=== PATIENT | female | born 1965 | race Caucasian/White ===

== ENCOUNTER 2016-09-16 12:11 | Emergency (ER) | payer MEDICARE, MEDICAID ==
[~2016-09-16 12:11] MED LIST: ALBUAER3 INH; BENZ2TAB PO; BUPR100T4 PO; CHOL20005 PO; DEPA500T3 PO; DIVA250T3 PO; DORZ2SOL7 EACH EYE; FLUP2.5T PO; FLUT1INH INH; FURO20TA PO; OLAN10TA PO; OXCA150T PO; RISP50P IM; SODI1TAB PO
--- NOTE | 2016-09-16 12:24 | PD ---
HPI Chief Complaint: ba Time Seen by Provider: 12:24 Travel History International Travel<30 days: No Contact w/Intl Traveler<30days: No Traveled to known affect area: No History of Present Illness HPI 51-year-old female with history of schizophrenia presents to the emergency department from her current place of residence under a [place] act for psychiatric evaluation. Per report, the patient has been decompensating and becoming more aggressive. She has tended to walk into traffic several times. Patient tells me she is fine. She seems to be having many flights of ideas but can be redirected. Her speech is very garbled. She tells me that she is not the one with the problem. PFSH Past Medical History Asthma: No Autoimmune Disease: No Anxiety: Yes Depression: No COPD: Yes Cerebrovascular Accident: No Diminished Hearing: No Gastrointestinal Disorders: No Genitourinary: No Immune Disorder: No Implanted Vascular Access Dvce: No Musculoskeletal: No Neurologic: Yes (ENCEPHALOPATHY) Psychiatric: Yes (pt has been hospitalized for psychiatric problems) Reproductive: No Respiratory: Yes Immunizations Current: No Migraines: Yes Sleep Apnea: No Past Surgical History AICD: No Genitourinary Surgery: No Social History Alcohol Use: No Tobacco Use: Yes (1 PACK DAILY ) Substance Use: No Allergies-Medications (Allergen,Severity, Reaction): Coded Allergies: Haldol (Verified Allergy, Unknown, 07/19/16) Reported Meds & Prescriptions Reported Meds & Active Scripts Active Depakote ER (Divalproex Sodium) 500 Mg Mila 500 Mg PO BID Reported Risperdal Consta Inj (Risperidone) 50 Mg Inj 50 Mg IM Q14D Sodium Chloride 1 Gm Tab 1 Gm PO DAILY Fluphenazine (Fluphenazine HCl) 2.5 Mg Tab 1 Tab PO BID Breo Ellipta Inh (Fluticasone/Vilanterol) 100-25 Mcg/Act Inh 1 Puff INH DAILY Use daily at the same time. Oxcarbazepine 150 Mg Tab 450 Mg PO BID Divalproex ER (Divalproex Sodium) 250 Mg Mila 250 Mg PO DAILY Olanzapine 10 Mg Tab 10 Mg PO HS Furosemide 20 Mg Tab 20 Mg PO DAILY Cosopt Opth Drops (Dorzolamide-Timolol Opth Drops) 22.3-6.8 Mg/Ml Soln 1 Drop EACH EYE TID Benztropine (Benztropine Mesylate) 2 Mg Tab 2 Mg PO BID D3 Super Strength (Cholecalciferol) 2,000 Unit Cap 1,000 Units PO DAILY Bupropion HCl 100 Mg Tab 100 Mg PO DAILY Proair Hfa 8.5 GM Inh (Albuterol Sulfate) 90 Mcg/Act Aer 1 Puff INH Q6HR PRN 108 mcg/actuation Review of Systems Except as stated in HPI: all other systems reviewed are Neg Physical Exam Narrative GENERAL: Well-nourished, unkempt female patient, sitting in a chair, mumbling to those around her, drooling on her shirt, but in no acute distress SKIN: Warm and dry. HEAD: Normocephalic. Atraumatic EYES: No scleral icterus. No injection or drainage. NECK: Supple, trachea midline. No JVD or lymphadenopathy. CARDIOVASCULAR: Regular rate and rhythm without murmurs, gallops, or rubs. RESPIRATORY: Breath sounds equal bilaterally. No accessory muscle use. GASTROINTESTINAL: Abdomen soft, non-tender, nondistended. MUSCULOSKELETAL: No cyanosis, or edema. BACK: Nontender without obvious deformity. No CVA tenderness. Data Data Last Documented VS Vital Signs Date Time Temp Pulse Resp B/P Pulse Ox O2 Delivery O2 Flow Rate FiO2 09/16/16 22:00 68 18 101/59 100 Room Air 09/16/16 15:59 97.6 Orders Complete Blood Count With Diff (09/16/16 12:17) Basic Metabolic Panel (Bmp) (09/16/16 12:17) Urinalysis - C+S If Indicated (09/16/16 12:17) Drug Screen, Random Urine (09/16/16 12:17) Alcohol (Ethanol) (09/16/16 12:17) Psych Screen (09/16/16 12:17) Ct Brain W/O Iv Contrast(Rout) (09/16/16 ) Diet Regular Basic (09/16/16 Dinner) Labs Laboratory Tests Test 09/16/16 09/16/16 13:55 15:15 White Blood Count 5.9 TH/MM3 Red Blood Count 3.63 MIL/MM3 Hemoglobin 12.1 GM/DL Hematocrit 35.1 % Mean Corpuscular Volume 96.7 FL Mean Corpuscular Hemoglobin 33.2 PG Mean Corpuscular Hemoglobin 34.3 % Concent Red Cell Distribution Width 13.4 % Platelet Count 223 TH/MM3 Mean Platelet Volume 9.4 FL Neutrophils (%) (Auto) 73.7 % Lymphocytes (%) (Auto) 16.4 % Monocytes (%) (Auto) 8.8 % Eosinophils (%) (Auto) 0.6 % Basophils (%) (Auto) 0.5 % Neutrophils # (Auto) 4.3 TH/MM3 Lymphocytes # (Auto) 1.0 TH/MM3 Monocytes # (Auto) 0.5 TH/MM3 Eosinophils # (Auto) 0.0 TH/MM3 Basophils # (Auto) 0.0 TH/MM3 CBC Comment DIFF FINAL Differential Comment Sodium Level 132 MEQ/L Potassium Level 3.7 MEQ/L Chloride Level 95 MEQ/L Carbon Dioxide Level 32.7 MEQ/L Anion Gap 4 MEQ/L Blood Urea Nitrogen 7 MG/DL Creatinine 0.74 MG/DL Estimat Glomerular Filtration 82 ML/MIN Rate Random Glucose 101 MG/DL Calcium Level 8.6 MG/DL Ethyl Alcohol Level LESS THAN 3 MG/DL Urine Color LIGHT-YELLOW Urine Turbidity CLEAR Urine pH 6.5 Urine Specific [place] 1.006 Urine Protein NEG mg/dL Urine Glucose (UA) NEG mg/dL Urine Ketones NEG mg/dL Urine Occult Blood NEG Urine Nitrite NEG Urine Bilirubin NEG Urine Urobilinogen LESS THAN 2.0 MG/DL Urine Leukocyte Esterase NEG Urine RBC LESS THAN 1 /hpf Urine WBC LESS THAN 1 /hpf Microscopic Urinalysis Comment CULT NOT INDICATED Urine Opiates Screen NEG Urine Barbiturates Screen NEG Urine Amphetamines Screen NEG Urine Benzodiazepines Screen NEG Urine Cocaine Screen NEG Urine Cannabinoids Screen NEG MDM Medical Decision Making Medical Screen Exam Complete: Yes Emergency Medical Condition: Yes Medical Record Reviewed: Yes Differential Diagnosis Acute psychosis versus schizophrenia versus major disorder versus personality disorder versus electrode abnormality versus intracranial etiology Narrative Course 51-year-old female presents to emergency department for evaluation. Patient appears without distress. She is unable to answer my questions and with reports of decompensation and behavioral changes feel it is necessary to rule out intracranial etiology or other potential causes. CT imaging is without acute cranial abnormality. CBC and BMP are without acute concern. Toxicology is negative. Urine is unremarkable. Patient is medically cleared to undergo psychiatric screening for further evaluation and disposition. Mental health screening discussed with the patient. Psychiatric screen ordered. Diagnosis Primary Impression: Schizophrenia Qualified Code: F20.9 - Schizophrenia, unspecified type Additional Impression: Acute psychosis Condition: Stable Tierra Mercer Sep 16, 2016 12:24
--- NOTE | 2016-09-16 13:04 | RADRPT ---
EXAM DATE/TIME: 09/16/2016 12:57 [facility] COMPARISON: CT BRAIN W/O CONTRAST, July 19, 2016, 13:10. INDICATIONS : Altered mental status. RADIATION DOSE: 40.15 CTDIvol (mGy) MEDICAL HISTORY : Seizures. Encephalopathy. SURGICAL HISTORY : None. ENCOUNTER: Initial ACUITY: 1 day PAIN SCALE: 0/10 LOCATION: cranial TECHNIQUE: Multiple contiguous axial images were obtained of the head. Using automated exposure control and adjustment of the mA and/or kV according to patient size, radiation dose was kept as low as reasonably achievable to obtain optimal diagnostic quality images. FINDINGS: CEREBRUM: The ventricles are normal for age. No evidence of midline shift, mass lesion, hemorrha ge or acute infarction. No extra-axial fluid collections are seen. POSTERIOR FOSSA: The cerebellum and brainstem are intact. The 4th ventricle is midline. The cer ebellopontine angle is unremarkable. EXTRACRANIAL: The visualized portion of the orbits is intact. SKULL: The calvaria is intact. No evidence of skull fracture. CONCLUSION: No acute disease. Keanu Dejesus MD FACR on September 16, 2016 at 13:01 Board Certified Radiologist. This report was verified electronically.
[2016-09-16 13:30] VITALS: BP 154/79; PULSE 88; RESP 18; TEMP 98; O2SAT 96
[2016-09-16 14:16] LABS: AUTOMATED NEUTROPHIL # 4.3 TH/MM3 (1.8-7.7); BASOPHIL % 0.5 % (0.0-2.0); EOSINOPHIL % 0.6 % (0.0-4.0); HEMATOCRIT 35.1 % (35.0-46.0); HEMO FLAGS DIFF FINAL; LYMPH % 16.4 % (9.0-44.0); MEAN CELL VOLUME 96.7 FL (80.0-100.0); MEAN CORPUSCULAR HEMOGLOBIN 33.2 PG (27.0-34.0); MEAN CORPUSCULAR HGB CONC 34.3 % (32.0-36.0); MONO % 8.8 % (0.0-8.0); NEUT % 73.7 % (16.0-70.0); PLATELET COUNT 223 TH/MM3 (150-450); RED BLOOD COUNT 3.63 MIL/MM3 (4.00-5.30); RED CELL DISTRIBUTION WIDTH 13.4 % (11.6-17.2); WHITE BLOOD COUNT 5.9 TH/MM3 (4.0-11.0)
[2016-09-16 14:36] LABS: ANION GAP 4 MEQ/L (5-15); BICARBONATE 32.7 MEQ/L (21.0-32.0); BLOOD UREA NITROGEN 7 MG/DL (7-18); CHLORIDE 95 MEQ/L (98-107); GLOMERULAR FILTRATION RATE 82 ML/MIN (>89); POTASSIUM 3.7 MEQ/L (3.5-5.1); SODIUM (NA) 132 MEQ/L (136-145)
[2016-09-16 15:59] VITALS: BP 114/77; PULSE 91; RESP 18; TEMP 97.6; O2SAT 95
[2016-09-16 16:07] LABS: AMPHETAMINE, URINE NEG (NEG); BARBITURATES, URINE NEG (NEG); COCAINE, URINE NEG (NEG)
[2016-09-16 16:13] LABS: BLOOD, URINE NEG (NEG); COMMENT (UR) CULT NOT INDICATED; CULTURE IF INDICATED CULT NOT INDICATED; GLUCOSE,URINE NEG (NEG); KETONE, URINE NEG (NEG); NITRITE,URINE NEG (NEG); PH, URINE 6.5 (5.0-8.5); URINE COLOR LIGHT-YELLOW (YELLW/STRAW)
[2016-09-16 18:46] VITALS: BP 118/60; PULSE 79; RESP 18; O2SAT 98
[2016-09-16 22:00] VITALS: BP 101/59; PULSE 68; RESP 18; O2SAT 100
[2016-09-17 02:00] VITALS: BP 104/61; PULSE 76; RESP 17; O2SAT 96
[2016-09-17 06:41] VITALS: BP 105/79; PULSE 99; RESP 18; O2SAT 96
[2016-09-17 09:13] VITALS: BP 105/79
== END 2016-09-17 09:15 ==
LOC: NEDAMB 12:11 → NEPJ 09-17 09:15
DX: F20.9 Schizophrenia, unspecified (principal); F23 Brief psychotic disorder; J44.9 Chronic obstructive pulmonary disease, unspecified; F17.210 Nicotine dependence, cigarettes, uncomplicated
CPT/HCPCS: 70450; 80048; 80307; 80320; 81001; 85025

== ENCOUNTER 2016-10-14 15:44 | Inpatient (IN) | payer MEDICARE, MEDICAID ==
[~2016-10-14] VITALS: Ht 172.7 cm; Wt 55.9 kg
--- NOTE | 2016-10-14 16:40 | PD ---
HPI Chief Complaint: fall Time Seen by Provider: 16:39 Travel History International Travel<30 days: No Contact w/Intl Traveler<30days: No History of Present Illness HPI 51-year-old female with PMH of COPD, schizophrenia, hyponatremia presents to the ED for evaluation after multiple falls at her shelter today. On presentation the patient complains of aching pain all over and repeatedly asked for pain medications. She denies hitting her head or loss of consciousness. She endorses chronic falls. She is tangential and difficult to redirect. Review of the record reveals that her schizophrenia is advanced and she is A and O 2 at baseline. PFSH Past Medical History Asthma: No Autoimmune Disease: No Anxiety: Yes Depression: No COPD: Yes Cerebrovascular Accident: No Diminished Hearing: No Gastrointestinal Disorders: No Genitourinary: No Immune Disorder: No Implanted Vascular Access Dvce: No Musculoskeletal: No Neurologic: Yes (ENCEPHALOPATHY) Psychiatric: Yes (pt has been hospitalized for psychiatric problems) Reproductive: No Respiratory: Yes Immunizations Current: No Migraines: Yes Sleep Apnea: No Past Surgical History AICD: No Genitourinary Surgery: No Social History Alcohol Use: No Tobacco Use: Yes (1 PACK DAILY ) Substance Use: No Allergies-Medications (Allergen,Severity, Reaction): Coded Allergies: Haldol (Verified Allergy, Unknown, 07/19/16) Reported Meds & Prescriptions Reported Meds & Active Scripts Active Depakote ER (Divalproex Sodium) 500 Mg Mila 500 Mg PO BID Reported Risperdal Consta Inj (Risperidone) 50 Mg Inj 50 Mg IM Q14D Sodium Chloride 1 Gm Tab 1 Gm PO DAILY Fluphenazine (Fluphenazine HCl) 2.5 Mg Tab 1 Tab PO BID Breo Ellipta Inh (Fluticasone/Vilanterol) 100-25 Mcg/Act Inh 1 Puff INH DAILY Use daily at the same time. Oxcarbazepine 150 Mg Tab 450 Mg PO BID Divalproex ER (Divalproex Sodium) 250 Mg Mila 250 Mg PO DAILY Olanzapine 10 Mg Tab 10 Mg PO HS Furosemide 20 Mg Tab 20 Mg PO DAILY Cosopt Opth Drops (Dorzolamide-Timolol Opth Drops) 22.3-6.8 Mg/Ml Soln 1 Drop EACH EYE TID Benztropine (Benztropine Mesylate) 2 Mg Tab 2 Mg PO BID D3 Super Strength (Cholecalciferol) 2,000 Unit Cap 1,000 Units PO DAILY Bupropion HCl 100 Mg Tab 100 Mg PO DAILY Proair Hfa 8.5 GM Inh (Albuterol Sulfate) 90 Mcg/Act Aer 1 Puff INH Q6HR PRN 108 mcg/actuation Review of Systems ROS Limitations: Poor Historian (pt unable to provide detailed history) Physical Exam Narrative GENERAL: Well-nourished, well-developed thin, restless white female in no acute distress. SKIN: Warm and dry. HEAD: Normocephalic. EYES: No scleral icterus. No injection or drainage. Right pupil nonreactive. Reviewing the record reveals this is chronic. EOMI. NECK: Supple, trachea midline. No JVD or lymphadenopathy. No midline tenderness to palpation. CARDIOVASCULAR: Regular rate and rhythm without murmurs, gallops, or rubs. RESPIRATORY: Breath sounds clear and equal bilaterally. No accessory muscle use. GASTROINTESTINAL: Abdomen soft, non-tender, nondistended. Active bowel sounds. MUSCULOSKELETAL: No cyanosis, or edema. BACK: Nontender without obvious deformity. No CVA tenderness. Data Data Last Documented VS Vital Signs Date Time Temp Pulse Resp B/P Pulse Ox O2 Delivery O2 Flow Rate FiO2 10/14/16 19:50 95 Nasal Cannula 2 10/14/16 19:50 97 18 163/108 10/14/16 16:42 97.3 Orders Complete Blood Count With Diff (10/14/16 16:52) Comprehensive Metabolic Panel (10/14/16 16:52) Urinalysis - C+S If Indicated (10/14/16 16:52) Ct Brain W/O Iv Contrast(Rout) (10/14/16 16:52) Ct Cerv Spine W/O Contrast (10/14/16 16:52) Ecg Monitoring (10/14/16 16:52) Iv Access Insert/Monitor (10/14/16 16:52) Oximetry (10/14/16 16:52) Sodium Chloride 0.9% Flush (Ns Flush) (10/14/16 17:00) Sodium Chlor 0.9% 1000 Ml Inj (Ns 1000 M (10/14/16 18:00) Electrocardiogram (10/14/16 17:55) Sodium (Na) (10/14/16 19:41) ^ Fluid A Instructions (10/14/16 20:31) Admit Order (Ed Use Only) (10/14/16 20:31) Labs Laboratory Tests Test 10/14/16 17:16 White Blood Count 7.2 TH/MM3 Red Blood Count 4.04 MIL/MM3 Hemoglobin 13.5 GM/DL Hematocrit 37.8 % Mean Corpuscular Volume 93.5 FL Mean Corpuscular Hemoglobin 33.3 PG Mean Corpuscular Hemoglobin 35.6 % Concent Red Cell Distribution Width 13.2 % Platelet Count 228 TH/MM3 Mean Platelet Volume 9.8 FL Neutrophils (%) (Auto) 70.6 % Lymphocytes (%) (Auto) 20.3 % Monocytes (%) (Auto) 8.8 % Eosinophils (%) (Auto) 0.1 % Basophils (%) (Auto) 0.2 % Neutrophils # (Auto) 5.1 TH/MM3 Lymphocytes # (Auto) 1.5 TH/MM3 Monocytes # (Auto) 0.6 TH/MM3 Eosinophils # (Auto) 0.0 TH/MM3 Basophils # (Auto) 0.0 TH/MM3 CBC Comment DIFF FINAL Differential Comment Urine Color STRAW Urine Turbidity HAZY Urine pH 8.0 Urine Specific [place] 1.005 Urine Protein NEG mg/dL Urine Glucose (UA) NEG mg/dL Urine Ketones TRACE mg/dL Urine Occult Blood NEG Urine Nitrite NEG Urine Bilirubin NEG Urine Urobilinogen LESS THAN 2.0 MG/DL Urine Leukocyte Esterase NEG Urine RBC 2 /hpf Urine WBC 1 /hpf Urine Amorphous Sediment OCC Urine Mucus FEW /lpf Microscopic Urinalysis Comment CULT NOT INDICATED Sodium Level 115 MEQ/L Potassium Level 4.6 MEQ/L Chloride Level 76 MEQ/L Carbon Dioxide Level 33.0 MEQ/L Anion Gap 6 MEQ/L Blood Urea Nitrogen 7 MG/DL Creatinine 0.43 MG/DL Estimat Glomerular Filtration 154 ML/MIN Rate Random Glucose 105 MG/DL Calcium Level 7.9 MG/DL Total Bilirubin 0.4 MG/DL Aspartate Amino Transf 37 U/L (AST/SGOT) Alanine Aminotransferase 18 U/L (ALT/SGPT) Alkaline Phosphatase 82 U/L Total Protein 7.0 GM/DL Albumin 3.5 GM/DL MDM Medical Decision Making Medical Screen Exam Complete: Yes Emergency Medical Condition: Yes Differential Diagnosis Mechanical fall versus musculoskeletal pain versus ICH versus skull fracture versus cervical spinal versus UTI versus electrolyte abnormality versus other Narrative Course 51-year-old female with PMH of COPD, schizophrenia, hyponatremia presents to the ED for evaluation after multiple falls at her shelter today. On presentation the patient complains of aching pain all over and repeatedly asked for pain medications. She denies hitting her head or loss of consciousness. She endorses chronic falls. She is tangential and difficult to redirect. Remaining history was obtained through the record. Review of the record reveals that her schizophrenia is advanced and she is A and O 2 at baseline. Vitals reviewed. Physical exam reveals a restless white female in no acute distress. The right pupil is unresponsive, review of the record reveals this is chronic. No focal neural deficits. Mild midline tenderness of the midline cervical spine. Abdomen soft, nontender. No edema of the extremities. IV was established. Patient was administered a liter of normal saline. CBC: WBC 7.2. Hemoccult 13.5. CMP: Sodium 115. Chloride 76. 0.9. UA: No culture indicated. CT of the brain: No acute findings per radiology read. CT of the cervical spine: EKG: Rate 92, sinus rhythm, LAD, LBBB. No ischemic changes. Reviewed by Dr. Blanca Recheck a sodium ordered. Patient is on fluid restriction. Review of the record reveals at least 2 previous episodes of hyponatremia. Primary care Dr. Kael Sutton. Plan to admit to medicine. Call placed to [facility]. I spoke with JOANA Mota. Patient will be accepted to medicine service by Dr. Logan. Please see medicine notes for disposition. Diagnosis Primary Impression: Hyponatremia Additional Impression: Fall Qualified Code: W19.XXXA - Fall, initial encounter aNdira Ozuna Oct 14, 2016 16:39
[2016-10-14 16:42] VITALS: BP 141/91; PULSE 80; RESP 20; TEMP 97.3; O2SAT 89
[2016-10-14] MEDS ORDERED: SODIUM CHLORIDE 0.9% FLUSH 5 ML FLUSH IVF PRN (17:00)
[2016-10-14 17:32] LABS: AUTOMATED NEUTROPHIL # 5.1 TH/MM3 (1.8-7.7); BASOPHIL % 0.2 % (0.0-2.0); EOSINOPHIL % 0.1 % (0.0-4.0); HEMATOCRIT 37.8 % (35.0-46.0); HEMO FLAGS DIFF FINAL; LYMPH % 20.3 % (9.0-44.0); LYMPHOCYTE # 1.5 TH/MM3 (1.0-4.8); MEAN CELL VOLUME 93.5 FL (80.0-100.0); MEAN CORPUSCULAR HEMOGLOBIN 33.3 PG (27.0-34.0); MEAN CORPUSCULAR HGB CONC 35.6 % (32.0-36.0); MONO % 8.8 % (0.0-8.0); NEUT % 70.6 % (16.0-70.0); PLATELET COUNT 228 TH/MM3 (150-450); RED BLOOD COUNT 4.04 MIL/MM3 (4.00-5.30); RED CELL DISTRIBUTION WIDTH 13.2 % (11.6-17.2); WHITE BLOOD COUNT 7.2 TH/MM3 (4.0-11.0)
[2016-10-14 17:37] LABS: BLOOD, URINE NEG (NEG); GLUCOSE,URINE NEG (NEG); KETONE, URINE TRACE mg/dL (NEG); MUCUS URINE FEW /lpf (OCC); NITRITE,URINE NEG (NEG)
[2016-10-14 17:40] LABS: COMMENT (UR) CULT NOT INDICATED; CULTURE IF INDICATED CULT NOT INDICATED; URINE COLOR STRAW (YELLW/STRAW)
[2016-10-14 17:41] LABS: ALT (GPT) 18 U/L (10-53); ANION GAP 6 MEQ/L (5-15); AST (GOT) 37 U/L (15-37); BLOOD UREA NITROGEN 7 MG/DL (7-18); CHLORIDE 76 MEQ/L (98-107); GLOMERULAR FILTRATION RATE 154 ML/MIN (>89); POTASSIUM 4.6 MEQ/L (3.5-5.1)
[2016-10-14 17:48] LABS: ALKALINE PHOSPHATASE 82 U/L (45-117); SODIUM (NA) 115 MEQ/L (136-145); TOTAL BILIRUBIN ADULT 0.4 MG/DL (0.2-1.0)
[2016-10-14] MEDS ORDERED: SODIUM CHLOR 0.9% 1000 ML INJ 1,000 ML IV ONE (18:00)
[2016-10-14 19:50] VITALS: BP 163/108; PULSE 97; RESP 18; O2SAT 95
--- NOTE | 2016-10-14 20:08 | RADRPT ---
EXAM DATE/TIME: 10/14/2016 19:28 [facility] COMPARISON: CT BRAIN W/O CONTRAST, September 16, 2016, 12:57. INDICATIONS : Multiple falls today. RADIATION DOSE: 56.36 CTDIvol (mGy) MEDICAL HISTORY : Chronic obstructive pulmonary disease. Seizures. Cardiovascular diseaseDiabetes SURGICAL HISTORY : None. ENCOUNTER: Initial ACUITY: 1 day PAIN SCALE: 5/10 LOCATION: cranial TECHNIQUE: Multiple contiguous axial images were obtained of the head. Using automated exposure control and adj ustment of the mA and/or kV according to patient size, radiation dose was kept as low as reasonably a chievable to obtain optimal diagnostic quality images. FINDINGS: CEREBRUM: The ventricles are normal for age. No evidence of midline shift, mass lesion, hemorrhage or acute in farction. No extra-axial fluid collections are seen. POSTERIOR FOSSA: The cerebellum and brainstem are intact. The 4th ventricle is midline. The cerebellopontine angle i s unremarkable. EXTRACRANIAL: The visualized portion of the orbits is intact. SKULL: The calvaria is intact. No evidence of skull fracture. CONCLUSION: 1. No acute findings. Rounded calcification remains in the right optic globe. Poncho Vivas MD on October 14, 2016 at 20:05 Board Certified Radiologist. This report was verified electronically.
--- NOTE | 2016-10-14 20:39 | RADRPT ---
EXAM DATE/TIME: 10/14/2016 19:31 [facility] COMPARISON: No previous studies available for comparison. INDICATIONS : Multiple falls today. RADIATION DOSE: 31.39 CTDIvol (mGy) MEDICAL HISTORY : Chronic obstructive pulmonary disease. Cardiovascular disease Seizures.Diabetes SURGICAL HISTORY : None. ENCOUNTER: Initial ACUITY: 1 day PAIN SCALE: 5/10 LOCATION: neck TECHNIQUE: Volumetric scanning of the cervical spine was performed. Multiplanar reconstructions in the sagittal, coronal and oblique axial planes were performed. Using automated exposure control and adjustment o f the mA and/or kV according to patient size, radiation dose was kept as low as reasonably achievable to obtain optimal diagnostic quality images. FINDINGS: No acute fracture or spondylolisthesis. Moderate degenerative disc disease. Slight reversal of normal cervical lordosis. No significant bony canal stenosis. CONCLUSION: 1. No acute findings. No significant change from May 2016. Poncho Vivas MD on October 14, 2016 at 20:34 Board Certified Radiologist. This report was verified electronically.
[2016-10-14] MEDS ORDERED: SENNOSIDES 8.6 MG TAB PO PRN (22:45)
[2016-10-14] MEDS ORDERED: BISACODYL 10 MG SUPP PR PRN (22:45)
[2016-10-14] MEDS ORDERED: ONDANSETRON HCL 4 MG/2 ML VIAL IVP PRN (22:45)
[2016-10-14] MEDS ORDERED: SODIUM CHLORIDE 0.9% FLUSH 5 ML FLUSH FLUSH PRN (22:45)
[2016-10-14] MEDS ORDERED: NALOXONE HCL 0.4 MG/ML AMP IV PRN (22:45)
[2016-10-14] MEDS ORDERED: cloNIDine HCL 0.1 MG TAB PO PRN (22:45)
[2016-10-14] MEDS ORDERED: ACETAMINOPHEN 325 MG TAB PO PRN (22:45)
[2016-10-15] VITALS (8 sets, daily range): BP systolic 110–151; BP diastolic 73–90; PULSE 79–121; RESP 16–24; TEMP 97–98.1; O2SAT 90–98
[2016-10-15] MEDS: SODIUM CHLOR 0.9% 1000 ML INJ 1,000 ML IV SCH ×2 (00:08→15:57)
--- NOTE | 2016-10-15 04:56 | EKG ---
Date Performed: 10/14/2016 Time Performed: 19:54:46 PTAGE: 51 years EKG: Sinus rhythm POSSIBLE LEFT ATRIAL ENLARGEMENT MARKED LEFT AXIS DEVIATION LEFT BUNDLE BRANCH BLOCK ABNORMAL ECG CO MPARED TO PRIOR ELECTROCARDIOGRAM, LEFT bundle branch block is present. PREVIOUS TRACING : 07/19/2016 12.09 DOCTOR: Darius Caruso Interpretating Date/Time 10/15/2016 04:54:46
[2016-10-15 06:50] LABS: BICARBONATE 34.5 MEQ/L (21.0-32.0); POTASSIUM 3.3 MEQ/L (3.5-5.1)
[2016-10-15] MEDS: SODIUM CHLORIDE 0.9% FLUSH 5 ML FLUSH FLUSH SCH ×2 (09:43→21:00)
[2016-10-15] MEDS ORDERED: POTASSIUM CL 40 MEQ/30 ML LIQ UDC PO ONE (09:45)
[2016-10-15] MEDS: FAMOTIDINE 20 MG TAB PO SCH ×2 (09:50→21:22)
[2016-10-15] MEDS: HEPARIN SODIUM - SQ 10,000 UNITS/ML VIAL SQ SCH ×2 (09:50→21:23)
[2016-10-15] MEDS ORDERED: FLUP1INJ IM (10:17)
[2016-10-15] MEDS ORDERED: METO25TA3 PO (10:17)
[2016-10-15] MEDS ORDERED: DIVA500T3 PO (10:17)
[2016-10-15] MEDS ORDERED: DEPA500T3 PO (10:17)
[2016-10-15] MEDS ORDERED: OXCA300T PO (10:17)
[2016-10-15] MEDS ORDERED: ADVA250A INH (10:17)
[2016-10-15] MEDS ORDERED: FLUP10TA PO (10:17)
[2016-10-15] MEDS ORDERED: LACT10SO PO (10:17)
[2016-10-15] MEDS ORDERED: TIMO0.5S5 EACH EYE (10:17)
--- NOTE | 2016-10-15 10:47 | MH ---
cc: SEBASTIEN LOGAN DATE OF ADMISSION: 10/14/2016 DATE OF 1965 INTERNATIONAL TRAVEL In the last 30 days, no. CHIEF COMPLAINT Multiple falls. HISTORY OF PRESENT ILLNESS This is a 51 year-old white female with a significant history of schizophrenia, as well as other medical co-morbidities. The patient also has a history of hyponatremia events. Yesterday the patient was in her usual state of health at the [facility] where she resides and began having multiple falls. The patient describes such as sweats, chills, and hearing voices. She denies any fever. Denies any cough. Denies any chest pain or shortness of breath. She initially told ER staff that she does not remember hitting her head or losing consciousness, but on my exam, she told me she did hit her head on the right lateral side of her right ear. Currently I see no bruising. No lacerations and no increased knots or swelling. Currently the patient is alert. She is talkative, but a poor historian. Information and answers that I am getting are random, but she is not totally understanding and controlling the full situation. She states she does hear voices. They talk to her almost daily and her main other need at this time is the fact that she is hungry. She does complain of some dizziness, but denies any syncopal episodes. The patient states she does drink large amounts of water during the day at least, two large glasses a day. The patient was brought into the emergency room for initial evaluation and was found to be hyponatremic with a sodium level of 115. The patient received a bolus of normal saline 1000 cc and continues to get IV fluids of sodium chloride at 50 cc/hr. The patient's medications were evaluated and she also got clonidine p.o. last night at 2245. PAST MEDICAL HISTORY Includes: 1. Anxiety 2. COPD, she is a current tobacco user. 3. Encephalopathy. Most of this information is obtained per the record. 4. Respiratory issues, probable COPD. 5. Migraines 6. Poor edentulous health with rotten and missing teeth. PAST SURGICAL HISTORY None noted. ALLERGIES [facility] MEDICATIONS REPORTED 1. Risperdal 2. Sodium chloride tablets 3. Fluphenazine 4. Breo Ellipta inhaler 5. Oxcarbazepine 6. Divalproex 7. Lasix 8. Olanzapine 9. Timolol ophthalmic drops 10. Benztropine 11. D3 super-strength 12. Bupropion 13. ProAir 14. Albuterol inhaler SOCIAL HISTORY She is a current smoker of at least a pack a day. Denies any alcohol or any other illicit drug use. FAMILY HISTORY Unknown except that she was adopted at two different times. She does not note if she has any current paths with any family. REVIEW OF SYSTEMS A 10-point review was initiated. Did receive some simple questions and answers to yes or no, but overall a poor historian and unable to provide any detailed history. She did note positive for chills, sweats, fever, hearing voices, hungry. Denies any chest pain, shortness of breath, nausea, or other systems unremarkable or negative. PHYSICAL EXAM VITAL SIGNS: Temperature 97.3, pulse 86, respirations 16, blood pressure 118/75. Half of the evening yesterday at 1950, 163/108, O2 sat 95% on room air. Currently she does have some O2 at two liters as needed. GENERAL: This is a well-nourished, well-developed thin white female who looks to be older than her stated age resting in the bed in no acute distress. SKIN: Pale, warm and dry. HEAD, EYES, EARS, NOSE, AND THROAT: Normocephalic, atraumatic. Eyes show a 4 mm nonreactive pupil on the right, 2 mm on the left. The patient states that she does see without any issues. According to the records, this finding with the pupils is chronic. Mouth is moist and pink. NECK: Supple. No JVD. CARDIOVASCULAR: Regular in rate and rhythm, fairly distant heart sounds, but no murmurs, rubs or gallops appreciated. She has no edema. RESPIRATORY: Breath sounds are essentially clear anteriorly and posteriorly with no wheezes, rales or rhonchi. She has no edema and her pulses are intact. ABDOMEN: Soft, nontender and nondistended. Active bowel sounds in all four quadrants. MUSCULOSKELETAL: She moves all extremities with purpose. No cyanosis. No edema. NEUROLOGIC: She is alert and talkative, random in her judgment and conversation, but does answer simple questions with validity at times. PSYCHIATRIC: Mood is currently appropriate and talkative. Not always in touch with situation during this exam. DIAGNOSTIC DATA WBC count 7.2, RBC 4.04, hemoglobin 13.5, hematocrit 37.8, platelet count 228, neutrophil percentage auto 70.6, monocyte percentage auto 8.8. Chemistry. Initially sodium was 115 on admission on 10/14/2016 at 1716. It is now, this a.m. 126. Potassium 3.3, chloride 85, carbon dioxide 34.4, amnion gap 7, BUN 6, creatinine 0.49, GFR 132, random glucose 93, serum osmolality 262, calcium 8.2. Urine is straw, hazy, pH is 8, specific gravity 1.005, negative for protein, glucose, occult blood, nitrites and urobilinogen less than 2, negative for leukocyte esterase, trace of ketones. Culture not indicated. IMAGING Cervical CT of the spine shows no acute findings. No significant change since May of 2016. CT of the head, no acute findings, rounded calcification remains in the right optic globe. ASSESSMENT AND PLAN 1. Hyponatremia, severe 2. Multiple falls without injury. 3. Paranoid schizophrenia 4. COPD 5. Hypokalemia We have admitted her to inpatient status. Monitor her blood pressure, offer as needed Clonidine was needed. PUD prophylaxis with Pepcid, heparin subcu for DVT prophylaxis. Her vital signs will be q4. She can be out of bed only with assistance, heart healthy diet ordered this a.m. Medications reconciled. We will monitor her lab work which will include a BMP in the morning. We will treat her potassium with a supplemental dose of 40 mEq times one. Keep the patient on gentle hydration and monitor any needs. To my knowledge, the patient is full code, full aggressive care and we will follow. Dictated by SAMIR Stuart Sebastien Logan MD JP/MESERET /9:19 AM /10:32 AM Patient was seen and examined on day of admission, as above [id number] time spent with the patient Chart reviewed Labs reviewed Medications reviewed Notes reviewed Plan of care discussed with SAMIR Discussed with RN Explained to patient MTDD
[2016-10-15] MEDS ORDERED: PILL SPLITTER OTHER PRN (12:45)
[2016-10-15] MEDS: SODIUM CHLORIDE 1 GRAM TAB PO SCH (13:05)
[2016-10-15] MEDS: LACTULOSE SYRUP 20 GM/30 ML CUP PO SCH ×2 (13:05→15:58)
[2016-10-15] MEDS: METOPROLOL TARTRATE 25 MG TAB PO SCH ×2 (13:05→21:23)
[2016-10-15] MEDS: TIMOLOL MALEATE 0.5% OPHT SOLN 5 ML BTL EACH EYE SCH ×2 (13:23→15:57)
[2016-10-15] MEDS: OXcarbazepine 300 MG TAB PO SCH ×2 (13:23→21:00)
[2016-10-15] MEDS: DIVALPROEX SODIUM E.R. 500 MG TAB PO SCH (13:24)
[2016-10-15] MEDS: BUDESONIDE-FORMOTEROL 160/4.5 MCG INHALER INH SCH ×2 (13:24→21:23)
[2016-10-15] MEDS ORDERED: DIVALPROEX SODIUM E.R. 500 MG TAB PO SCH (21:00)
[2016-10-15] MEDS ORDERED: ACETAMINOPHEN/HYDROcodone 325 MG/5 MG TAB PO PRN (21:30)
[2016-10-16] VITALS (8 sets, daily range): BP systolic 122–168; BP diastolic 67–89; PULSE 68–100; RESP 18–20; TEMP 97.6–98.8; O2SAT 81–96
[2016-10-16 06:59] LABS: BICARBONATE 35.5 MEQ/L (21.0-32.0); POTASSIUM 3.8 MEQ/L (3.5-5.1)
[2016-10-16] MEDS: HEPARIN SODIUM - SQ 10,000 UNITS/ML VIAL SQ SCH (08:29)
[2016-10-16] MEDS: LACTULOSE SYRUP 20 GM/30 ML CUP PO SCH ×3 (08:30→16:40)
[2016-10-16] MEDS: SODIUM CHLORIDE 0.9% FLUSH 5 ML FLUSH FLUSH SCH (08:31)
[2016-10-16] MEDS: OXcarbazepine 300 MG TAB PO SCH (08:31)
[2016-10-16] MEDS: SODIUM CHLORIDE 1 GRAM TAB PO SCH (08:31)
[2016-10-16] MEDS: FAMOTIDINE 20 MG TAB PO SCH (08:31)
[2016-10-16] MEDS: DIVALPROEX SODIUM E.R. 500 MG TAB PO SCH (08:31)
[2016-10-16] MEDS: METOPROLOL TARTRATE 25 MG TAB PO SCH (08:31)
[2016-10-16] MEDS: TIMOLOL MALEATE 0.5% OPHT SOLN 5 ML BTL EACH EYE SCH ×3 (08:32→16:41)
[2016-10-16] MEDS: BUDESONIDE-FORMOTEROL 160/4.5 MCG INHALER INH SCH (08:32)
[2016-10-16] MEDS: SODIUM CHLOR 0.9% 1000 ML INJ 1,000 ML IV SCH (11:42)
--- NOTE | 2016-10-16 12:10 | HHI.PR ---
Subjective Remarks No chest pain or shortness of breath, alert, denies hearing any voices Appetite good (Kirsten Tomas) Objective Objective Results - Vital Signs Date Time Temp Pulse Resp B/P Pulse Ox O2 Delivery O2 Flow Rate FiO2 10/16/16 10:46 91 10/16/16 08:00 98.3 68 18 135/85 96 10/16/16 04:00 98.8 73 20 128/74 96 10/16/16 03:11 95 10/16/16 00:29 97.6 78 18 122/67 91 10/15/16 20:00 98.1 95 24 140/83 94 10/15/16 18:15 81 10/15/16 16:00 98.0 79 22 134/74 90 I/O 10/15/16 10/15/16 10/15/16 10/16/16 10/16/16 10/16/16 07:00 15:00 23:00 07:00 15:00 23:00 Intake Total 1317 ml 480 ml 956 ml Balance 1317 ml 480 ml 956 ml Intake Oral 1200 ml 480 ml 240 ml IV Total 117 ml 716 ml # Voids 1 1 2 # Bowel Movements 0 (Kirsten Tomas) Result Diagram: 10/14/16 1716 10/16/16 0543 ROS General: Weakness (generalized at improving), Other (10 point ROS complete, no muscular twitching or weakness, improving. Other systems negative) (Kirsten Tomas) Physical Exam Physical Exam PHYSICAL EXAMINATION GENERAL: This is a well-developed, well-nourished female who appears to be in no acute distress. She is alert and awake, answers appropriately. HEAD: Normocephalic without any lesion or mass noted. Facial features appear symmetric. OROPHARYNGEAL: Oropharynx without erythema or edema. NECK: Supple. No nuchal rigidity or lymphadenopathy. Trachea midline without deviation. CARDIAC: Regular rhythm, regular rate, S1 and S2 are heard. Murmur soft systolic, grade 2/6; no gallops or rubs. LUNGS: Clear to auscultation bilaterally. wheeze, few rhonchi clears with cough or rale. No use of accessory muscles on inspiration or expiration. ABDOMEN: Soft, nontender, no organomegaly or masses. Bowel sounds are heard in all four quadrants. No rebound. No guarding. EXTREMITIES: No edema. Pulses equal bilateral. cyanosis. NEUROLOGICAL: Patient mood and affect appropriate. More oriented to place and situation. SKIN:Warm and moist Objective Remarks I'm hungry. I like it better here (Kirsten Tomas) A/P Assessment and Plan ASSESSMENT AND PLAN 1. Hyponatremia, severe. 2. Multiple falls without injury., No further falls, precautions taken 3. Paranoid schizophrenia 4. COPD 5. Hypokalemia, resolved We have admitted her to inpatient status. Monitor her blood pressure and vital signs such as any fever tachycardia or tachypnea respirations PUD prophylaxis with Pepcid, heparin subcu for DVT prophylaxis. Her vital signs will be q4. heart healthy diet ordered this a.m. Medications reconciled. We will monitor her lab work which will include a BMP in the morning. Sodium level 129, improving, still requiring gentle hydration of sodium chloride at 50 cc an hour. Affect is appropriate, denies hearing any voices or seeing people that are not there. Appetite good, asking for food in between meals and snacks. Patient should discharge today or tomorrow pending her lab work Case discussed with Dr. Logan, patient seen on his behalf Discussed with patient Discharge Planning Today or tomorrow. Back to her previous home Discussed With: Nurse, Family (patient), Other (Dr. Logan, patient seen on his behalf) (Kirsten Tomas) Assessment and Plan Pt seen and examined above note reviewed face to face time spent with pt labs reviewed meds reviewed notes reviwed plan of care angelika carney [id number] for dc dtoday (Yehuda Logan MD) Kirsten Tomas Oct 16, 2016 12:10 Yehuda Logan MD Oct 16, 2016 19:04
--- NOTE | 2016-10-16 17:10 | HHI.DS ---
Discharge Summary Admission Date Oct 14, 2016 at 20:35 Discharge Date: Oct 16, 2016 Admitting Diagnosis hyponatremia, fall Procedures none Brief History HISTORY OF PRESENT ILLNESS This was a 51 year-old white female with a significant history of schizophrenia, as well as other medical co-morbidities. The patient also had a history of hyponatremia events. the patient was in her usual state of health at the [facility] where she resided and began having multiple falls. The patient described them such as sweats, chills, and hearing voices. She denied any fever. Denied any cough. Denied any chest pain or shortness of breath. She initially told ER staff that she did not remember hitting her head or losing consciousness, but on my exam, she told me she did hit her head on the right lateral side of her right ear. I see no bruising. No lacerations and no increased knots or swelling. Currently the patient was alert. She was talkative, but a poor historian. Information and answers that I am getting are random, but she was not totally understanding full situation of admission. She stated she does hear voices now. They talk to her almost daily and her main other need at this time is the fact that she was hungry. She did complain of some dizziness, but denies any syncopal episodes. The patient states she did drink large amounts of water during the day at least, two large glasses a day. CBC/BMP: 10/14/16 1716 10/16/16 0543 Significant Findings Laboratory Tests Test 10/14/16 10/14/16 10/15/16 10/16/16 17:16 20:45 06:11 05:43 Neutrophils (%) (Auto) 70.6 % (16.0-70.0) Monocytes (%) (Auto) 8.8 % (0.0-8.0) Urine Turbidity HAZY (CLEAR) Urine Ketones TRACE mg/dL (NEG) Urine Mucus FEW /lpf (OCC) Sodium Level 115 MEQ/L 119 MEQ/L 126 MEQ/L 129 MEQ/L (136-145) (136-145) (136-145) (136-145) Chloride Level 76 MEQ/L 85 MEQ/L 88 MEQ/L (98-107) (98-107) (98-107) Carbon Dioxide Level 33.0 MEQ/L 34.5 MEQ/L 35.5 MEQ/L (21.0-32.0) (21.0-32.0) (21.0-32.0) Creatinine 0.43 MG/DL 0.49 MG/DL 0.40 MG/DL (0.50-1.00) (0.50-1.00) (0.50-1.00) Calcium Level 7.9 MG/DL 8.2 MG/DL 7.9 MG/DL (8.5-10.1) (8.5-10.1) (8.5-10.1) Potassium Level 3.3 MEQ/L (3.5-5.1) Blood Urea Nitrogen 6 MG/DL (7-18) 5 MG/DL (7-18) Serum Osmolality 262 MOSM/KG (275-295) PE at Discharge PHYSICAL EXAMINATION GENERAL: This is a well-developed, well-nourished female who appears to be in no acute distress. She is alert and awake, answers appropriately. HEAD: Normocephalic without any lesion or mass noted. Facial features appear symmetric. OROPHARYNGEAL: Oropharynx without erythema or edema. NECK: Supple. No nuchal rigidity or lymphadenopathy. Trachea midline without deviation. CARDIAC: Regular rhythm, regular rate, S1 and S2 are heard. Murmur soft systolic, grade 2/6; no gallops or rubs. LUNGS: Clear to auscultation bilaterally. wheeze, few rhonchi clears with cough or rale. No use of accessory muscles on inspiration or expiration. ABDOMEN: Soft, nontender, no organomegaly or masses. Bowel sounds are heard in all four quadrants. No rebound. No guarding. EXTREMITIES: No edema. Pulses equal bilateral. cyanosis. NEUROLOGICAL: Patient mood and affect appropriate. More oriented to place and situation. SKIN:Warm and moist Hospital Course ER information The patient was brought into the emergency room for initial evaluation and was found to be hyponatremic with a sodium level of 115. The patient received a bolus of normal saline 1000 cc and continues to get IV fluids of sodium chloride at 50 cc/hr. The patient's medications were evaluated and she also got clonidine p.o. last night at 2245. These are the diagnoses that were used for her plan of care as well as treatment. 1. Hyponatremia, severe. 2. Multiple falls without injury., No further falls, precautions taken 3. Paranoid schizophrenia 4. COPD 5. Hypokalemia, resolved Monitor her blood pressure and vital signs such as any fever tachycardia or tachypnea respirations PUD prophylaxis with Pepcid was initiated heparin subcu for DVT prophylaxis was initiated Her vital signs will be q4. No acute issues heart healthy diet ordered , patient is eating 100% and asking for snacks in between Medications reconciled on admission. Patient initially had some mild hypokalemia, which was treated with potassium returned to normal. BMP was ordered this morning. Sodium level now 129, and improving. gentle hydration of sodium chloride at 50 cc an hour all day and since admission. All other lab values were normal range. Affect is appropriate, denies hearing any voices or seeing people that are not there. Patient is alert responsive the morning of discharge. Denies any muscular twitches for cramping. She is much more alert and hungry. She has a history of COPD but had no shortness of breath during her admission. Her Appetite is good, asking for food in between meals and snacks. She was managed on gentle hydration throughout the afternoon until around 4:30. After reevaluation she is stable for discharge back to her psychiatric [facility]. Case discussed with Dr. Logan, patient seen on his behalf. Agreed with discharge Pt Condition on Discharge: Stable Discharge Disposition: [facility] Discharge Instructions DIET: Follow Instructions for: As Tolerated, No Restrictions Additional Diet Instructions: Maintain PO fluids to 1500cc day Activities you can perform: Regular-No Restrictions Continued Medications: Divalproex ER (Divalproex ER) 500 Mg Tab 500 MG PO DAILY IN THE AM Control Seizures #30 Ref 0 TAB Divalproex ER (Depakote ER) 500 Mg Mila 1000 MG PO HS Control Seizures #60 Ref 0 TAB Fluphenazine (Fluphenazine) 10 Mg Tab 10 MG PO BID Fluphenazine Decanoate Inj (Fluphenazine Decanoate Inj) 125 Mg/5 Ml Inj 25 MG IM EVERY 2 WEEKS #1 VIAL Fluticasone-Salmeterol Inh (Advair Diskus Inh) 250-50 Mcg/Blist Aer 1 PUFF INH BID Rinse mouth after use. #1 Ref 0 INHALER Lactulose Liq (Lactulose Liq) 10 Gm/15 Ml Soln 30 ML PO TID Ref 0 ML Metoprolol Tartrate (Metoprolol Tartrate) 25 Mg Tab 12.5 MG PO BID #60 Ref 0 TAB Oxcarbazepine (Oxcarbazepine) 300 Mg Tab 300 MG PO BID Seizure Control #60 Ref 0 TAB Sodium Chloride (Sodium Chloride) 1 Gm Tab 2 GM PO DAILY Electrolyte Replacement Ref 0 TAB Timolol Opth Drops (Timoptic Opth Drops) 0.5 % Soln 1 DROP EACH EYE TID Glaucoma #1 Ref 0 BOTTLE Additional Information Last Impressions Head CT 10/14/161651 Signed Impressions: Service Date/Time: Friday, October 14, 2016 19:28 - CONCLUSION: 1. No acute findings. Rounded calcification remains in the right optic globe. Poncho Vivas MD Cervical Spine CT 10/14/161651 Signed Impressions: Service Date/Time: Friday, October 14, 2016 19:31 - CONCLUSION: 1. No acute findings. No significant change from May 2016. MD Thom Cedeno Susan M. ARNP Oct 16, 2016 17:10
== END 2016-10-16 20:15 | DRG 641 ==
LOC: NEDAMB 15:44 → NEDA 20:35 → NEDH 10-15 03:06 → N04B 10-15 11:53
PROVIDERS: ADMIT Specialist; ATTEND Specialist
DX: E87.1 Hypo-osmolality and hyponatremia (principal); J44.9 Chronic obstructive pulmonary disease, unspecified; F20.0 Paranoid schizophrenia; I44.7 Left bundle-branch block, unspecified; R29.6 Repeated falls; F17.210 Nicotine dependence, cigarettes, uncomplicated; F41.9 Anxiety disorder, unspecified; E87.6 Hypokalemia; W19.XXXA Unspecified fall, initial encounter; Y93.9 Activity, unspecified; Y92.9 Unspecified place or not applicable
CPT/HCPCS: 70450; 72125; 80048; 80053; 81001; 83930; 84295; 85025; 93005; 96360; J1644; J7030

== ENCOUNTER 2016-10-16 21:53 | Inpatient (IN) | payer MEDICARE, MEDICAID ==
[~2016-10-16 21:53] MED LIST changes: +ADVA250A INH; -ALBUAER3 INH; -BENZ2TAB PO; -BUPR100T4 PO; -CHOL20005 PO; -DIVA250T3 PO; +DIVA500T3 PO; -DORZ2SOL7 EACH EYE; +FLUP10TA PO; +FLUP1INJ IM; -FLUP2.5T PO; -FLUT1INH INH; -FURO20TA PO; +LACT10SO PO; +METO25TA3 PO; -OLAN10TA PO; -OXCA150T PO; +OXCA300T PO; -RISP50P IM; +TIMO0.5S5 EACH EYE
[2016-10-16 22:00] VITALS: PULSE 104; RESP 16; O2SAT 88
[2016-10-16 22:04] VITALS: BP 167/81; PULSE 108; RESP 16; TEMP 97.9; O2SAT 91
[2016-10-16] MEDS ORDERED: SODIUM CHLORIDE 0.9% FLUSH 5 ML FLUSH IVF PRN (22:15)
--- NOTE | 2016-10-16 22:17 | PD ---
HPI Chief Complaint: Respiratory Symptoms Time Seen by Provider: 22:12 Travel History International Travel<30 days: No Contact w/Intl Traveler<30days: No Traveled to known affect area: No History of Present Illness HPI 51-year-old female presents to the emergency department via EMS from [facility] she resides for her schizophrenia. Patient does have history of schizophrenia, COPD, hyponatremia, pneumonia. Patient was just discharged from the hospital today after being admitted for hyponatremia. She is alert and oriented to self, but not place, time or situation. However, She did tell the nurse that the month was October. Apparently, the patient had a fall at [facility]. EMS was called and she was found to have oxygen saturation in the 70s on room air. She is placed on nonrebreather and her oxygen saturation did, up to 99%. The patient is a poor historian. She states "I don't feel good , I hear voices, I'm suicidal". Looking back in the chart, the patient has been admitted and intubated before for respiratory distress. PFSH Past Medical History Asthma: No Autoimmune Disease: No Anxiety: Yes Depression: No Cancer: No Cardiovascular Problems: Yes COPD: Yes Cerebrovascular Accident: No Diminished Hearing: No Endocrine: No Gastrointestinal Disorders: No Genitourinary: No Immune Disorder: No Implanted Vascular Access Dvce: No Musculoskeletal: No Neurologic: Yes (ENCEPHALOPATHY) Psychiatric: Yes (pt has been hospitalized for psychiatric problems) Reproductive: No Respiratory: Yes Immunizations Current: No Migraines: Yes Sleep Apnea: No Past Surgical History AICD: No Genitourinary Surgery: No Social History Alcohol Use: No Tobacco Use: Yes (1 PACK DAILY ) Substance Use: No Allergies-Medications (Allergen,Severity, Reaction): Coded Allergies: Haldol (Verified Allergy, Unknown, 10/16/16) Reported Meds & Prescriptions Reported Meds & Active Scripts Active Reported Metoprolol Tartrate 25 Mg Tab 12.5 Mg PO BID Fluphenazine Decanoate Inj (Fluphenazine Decanoate) 125 Mg/5 Ml Inj 25 Mg IM EVERY 2 WEEKS Depakote ER (Divalproex Sodium) 500 Mg Mila 1,000 Mg PO HS Timoptic Opth Drops (Timolol Opth Drops) 0.5 % Soln 1 Drop EACH EYE TID Lactulose Liq (Lactulose) 10 Gm/15 Ml Soln 30 Ml PO TID Advair Diskus Inh (Fluticasone-Salmeterol Inh) 250-50 Mcg/Blist Aer 1 Puff INH BID Rinse mouth after use. Fluphenazine (Fluphenazine HCl) 10 Mg Tab 10 Mg PO BID Oxcarbazepine 300 Mg Tab 300 Mg PO BID Divalproex ER (Divalproex Sodium) 500 Mg Tab 500 Mg PO DAILY IN THE AM Sodium Chloride 1 Gm Tab 2 Gm PO DAILY Review of Systems Except as stated in HPI: all other systems reviewed are Neg Physical Exam Narrative GENERAL: Well-developed well-nourished female patient, afebrile. Patient's oxygen saturation is 99% on nonrebreather. However, the patient took the nonrebreather off and oxygen saturation did decrease to 86%. SKIN: Warm and dry. Patient has abrasions noted to the bilateral lower extremities. HEAD: Normocephalic. Atraumatic EYES: No scleral icterus. No injection or drainage. NECK: Supple, trachea midline. No JVD or lymphadenopathy. CARDIOVASCULAR: Regular rate and rhythm without murmurs, gallops, or rubs. RESPIRATORY: Breath sounds equal bilaterally. No accessory muscle use. Lungs sounds are very diminished throughout, possible crackles noted to the right base. GASTROINTESTINAL: Abdomen soft, non-tender, nondistended. MUSCULOSKELETAL: No cyanosis, or edema. BACK: Nontender without obvious deformity. No CVA tenderness. Data Data Last Documented VS Vital Signs Date Time Temp Pulse Resp B/P Pulse Ox O2 Delivery O2 Flow Rate FiO2 10/16/16 22:09 18 10/16/16 22:04 97.9 108 167/81 91 10/16/16 22:00 Non-Rebreather 15 Orders Complete Blood Count With Diff (10/16/16 22:08) Comprehensive Metabolic Panel (10/16/16 22:08) B-Type Natriuretic Peptide (10/16/16 22:08) Magnesium (Mg) (10/16/16 22:08) Ckmb (Isoenzyme) Profile (10/16/16 22:08) Troponin I (10/16/16 22:08) Arterial Blood Gas (Abg) (10/16/16 22:08) Blood Culture (10/16/16 22:08) Iv Access Insert/Monitor (10/16/16 22:08) Electrocardiogram (10/16/16 22:08) Ecg Monitoring (10/16/16 22:08) Oximetry (10/16/16 22:08) Oxygen Administration (10/16/16 22:08) Chest, Single Ap (10/16/16 22:08) Sodium Chloride 0.9% Flush (Ns Flush) (10/16/16 22:15) Lactic Acid Sepsis Protocol (10/16/16 22:08) Labs Laboratory Tests Test 10/16/16 10:28 White Blood Count 12.9 TH/MM3 Red Blood Count 3.95 MIL/MM3 Hemoglobin 13.1 GM/DL Hematocrit 38.5 % Mean Corpuscular Volume 97.4 FL Mean Corpuscular Hemoglobin 33.2 PG Mean Corpuscular Hemoglobin 34.1 % Concent Red Cell Distribution Width 13.5 % Platelet Count 208 TH/MM3 Mean Platelet Volume 8.8 FL Neutrophils (%) (Auto) 85.2 % Lymphocytes (%) (Auto) 5.9 % Monocytes (%) (Auto) 8.5 % Eosinophils (%) (Auto) 0.1 % Basophils (%) (Auto) 0.3 % Neutrophils # (Auto) 11.0 TH/MM3 Lymphocytes # (Auto) 0.8 TH/MM3 Monocytes # (Auto) 1.1 TH/MM3 Eosinophils # (Auto) 0.0 TH/MM3 Basophils # (Auto) 0.0 TH/MM3 CBC Comment DIFF FINAL Differential Comment MDM Medical Decision Making Medical Screen Exam Complete: Yes Emergency Medical Condition: Yes Medical Record Reviewed: Yes Differential Diagnosis Pneumonia versus COPD exacerbation versus pneumothorax versus sepsis versus CHF Narrative Course 51-year-old female presents to the emergency department via EMS for evaluation after a fall and was found to be hypoxic. Patient's oxygen saturation is 98% on nonrebreather, but quickly decrease to the 80s when nonrebreather is removed. Patient was just discharged from the hospital today after being admitted for hyponatremia and fall. EKG, CBC, CMP, BNP, magnesium, CK, troponin , lactic acid, ABG, blood cultures 2, chest x-ray are ordered and pending. Dr. Richard will resume care and disposition of patient. Shelby Navarrete Oct 16, 2016 22:17
[2016-10-16 22:33] LABS: BASOPHIL % 0.3 % (0.0-2.0); EOSINOPHIL % 0.1 % (0.0-4.0); HEMATOCRIT 38.5 % (35.0-46.0); HEMO FLAGS DIFF FINAL; LYMPH % 5.9 % (9.0-44.0); LYMPHOCYTE # 0.8 TH/MM3 (1.0-4.8); MEAN CELL VOLUME 97.4 FL (80.0-100.0); MEAN CORPUSCULAR HEMOGLOBIN 33.2 PG (27.0-34.0); MEAN CORPUSCULAR HGB CONC 34.1 % (32.0-36.0); MONO % 8.5 % (0.0-8.0); NEUT % 85.2 % (16.0-70.0); PLATELET COUNT 208 TH/MM3 (150-450); RED BLOOD COUNT 3.95 MIL/MM3 (4.00-5.30); RED CELL DISTRIBUTION WIDTH 13.5 % (11.6-17.2); WHITE BLOOD COUNT 12.9 TH/MM3 (4.0-11.0)
[2016-10-16 23:00] LABS: ALT (GPT) 18 U/L (10-53); ANION GAP 5 MEQ/L (5-15); AST (GOT) 12 U/L (15-37); BICARBONATE 38.5 MEQ/L (21.0-32.0); BLOOD UREA NITROGEN 7 MG/DL (7-18); CHLORIDE 86 MEQ/L (98-107); GLOMERULAR FILTRATION RATE 183 ML/MIN (>89); POTASSIUM 3.9 MEQ/L (3.5-5.1); SODIUM (NA) 129 MEQ/L (136-145)
[2016-10-16] MEDS ORDERED: methylPREDNISolone SOD SUCC 125 MG/2 ML VIAL IVP ONE (23:00)
[2016-10-16 23:02] LABS: BLOOD GAS CARBOXYHEMOGLOBIN 2.1 % (0-4); BLOOD GAS HCO3 39 mmol/L (22-26); BLOOD GAS METHEMOGLOBIN 1.8 % (0-2); BLOOD GAS O2 HGB SATURATION 92 % (90-100); BLOOD GAS PCO2 97 mmHg (38-42); BLOOD GAS PO2 90 mmHG (61-120); BLOOD GAS TOTAL HGB 13.2 G/DL (12.0-16.0); TEMP CORR TO 98.6
[2016-10-16 23:03] LABS: CRITICAL VALUE YES; DRAW SITE LT RADIAL; LITER FLOW 2 L/M; NUMBER OF ARTERIAL PUNCTURES 1; OXYGEN DEVICE NASAL CANNULA; STAT YES; ULNAR PULSE PRESENT
[2016-10-16 23:04] LABS: ALKALINE PHOSPHATASE 88 U/L (45-117); CREATINE KINASE 75 U/L (26-192); TOTAL BILIRUBIN ADULT 0.2 MG/DL (0.2-1.0)
--- NOTE | 2016-10-16 23:04 | RADRPT ---
EXAM DATE/TIME: 10/16/2016 22:39 [facility] COMPARISON: CHEST SINGLE AP, July 19, 2016, 12:27. INDICATIONS : Shortness of breath. MEDICAL HISTORY : Encephalopathy SURGICAL HISTORY : None. ENCOUNTER: Initial ACUITY: 1 day PAIN SCORE: Non-responsive. LOCATION: chest FINDINGS: There is some mild left basilar airspace disease. Right lung relatively clear. No effusion. No pneumo thorax. Heart size upper limits normal. CONCLUSION: 1. Patchy left basilar airspace disease. Differential diagnosis includes aspiration and pneumonia. Poncho Vivas MD on October 16, 2016 at 23:01 Board Certified Radiologist. This report was verified electronically.
[2016-10-16] MEDS: RESP: ALBUTEROL 2.5 MG/IPRATROPIUM 0.5 MG NEB (SCH) INH (23:21)
[2016-10-16 23:22] VITALS: O2SAT 96
[2016-10-17] VITALS (29 sets, daily range): BP systolic 92–177; BP diastolic 53–130; PULSE 52–120; RESP 12–20; TEMP 98.5–99.9; O2SAT 88–100
[2016-10-17] MEDS ORDERED: CEFEPIME INJ 2,000 MG in SODIUM CHLORIDE 0.9% INJ 100 ML IV ONE ×2
[2016-10-17] MEDS ORDERED: AZITHROMYCIN INJ 500 MG in SODIUM CHLOR 0.9% 250 ML INJ 250 ML IV ONE ×2
[2016-10-17 00:11] LABS: BLOOD GAS BASE EXCESS 11.9 mmol/L (-2-2); BLOOD GAS CARBOXYHEMOGLOBIN 2.1 % (0-4); BLOOD GAS HCO3 39 mmol/L (22-26); BLOOD GAS METHEMOGLOBIN 1.9 % (0-2); BLOOD GAS O2 HGB SATURATION 89 % (90-100); BLOOD GAS OXYGEN CONTENT 16.2 Vol % (12.0-20.0); BLOOD GAS PCO2 80 mmHg (38-42); BLOOD GAS PO2 67 mmHG (61-120); BLOOD GAS TOTAL HGB 12.9 G/DL (12.0-16.0); TEMP CORR TO 98.6
[2016-10-17 00:12] LABS: CRITICAL VALUE YES; DRAW SITE LT RADIAL; FIO2 50 %; NUMBER OF ARTERIAL PUNCTURES 1; OXYGEN DEVICE NPPV; STAT YES; ULNAR PULSE PRESENT; VENT SETTINGS IPAP10/EPAP5
[2016-10-17] MEDS ORDERED: ETOMIDATE 40 MG/20 ML VIAL ONE (00:22)
[2016-10-17] MEDS ORDERED: PROPOFOL 1000 MG/100 ML INJ 100 ML ONE (00:56)
--- NOTE | 2016-10-17 01:21 | RADRPT ---
EXAM DATE/TIME: 10/17/2016 01:04 [facility] COMPARISON: CHEST SINGLE AP, October 16, 2016, 22:39. INDICATIONS : Post intubation. MEDICAL HISTORY : Encephalopathy SURGICAL HISTORY : None. ENCOUNTER: Subsequent ACUITY: 1 day PAIN SCORE: Non-responsive. LOCATION: Bilateral chest FINDINGS: Perihilar and basilar consolidation again seen on the left, not significantly changed. Right lung rem ains clear. No large effusion demonstrated. No pneumothorax. Patient is now intubated. Endotracheal tube tip is approximately 5 cm above the melvi. There is a na sogastric tube with tip in the stomach. CONCLUSION: 1. Endotracheal tube and nasogastric tube positions as above. 2. No significant change perihilar and basilar consolidation on the left. Kt Vyas MD on October 17, 2016 at 1:18 Board Certified Radiologist. This report was verified electronically.
[2016-10-17] MEDS: PROPOFOL 1000 MG/100 ML INJ 100 ML IV SCH ×2 (01:56→14:07)
[2016-10-17] MEDS ORDERED: SUCCINYLCHOLINE CHLORIDE 200 MG/10 ML VIAL IV PUSH ONE (02:00)
[2016-10-17] MEDS ORDERED: SODIUM CHLORIDE 0.9% FLUSH 5 ML FLUSH IVF PRN ×2 (02:00→02:30)
[2016-10-17] MEDS ORDERED: ETOMIDATE 40 MG/20 ML VIAL IV PUSH ONE (02:00)
[2016-10-17] MEDS ORDERED: MISCELLANEOUS NURSING INFORMATION XX SCH (02:30)
[2016-10-17] MEDS ORDERED: RESP: ALBUTEROL 2.5 MG/IPRATROPIUM 0.5 MG NEB (PRN) INH (02:30)
[2016-10-17] MEDS ORDERED: ACETAMINOPHEN 325 MG TAB PO PRN (02:30)
[2016-10-17] MEDS ORDERED: CHLORHEXIDINE GLUCONATE 2 % 1 PACK (2 CLOTHS) TOP PRN (02:30)
[2016-10-17 02:32] LABS: BACTERIA, URINE RARE /hpf; BLOOD, URINE NEG (NEG); COMMENT (UR) CULT NOT INDICATED; CULTURE IF INDICATED CULT NOT INDICATED; GLUCOSE,URINE 150 mg/dL (NEG); KETONE, URINE NEG (NEG); NITRITE,URINE NEG (NEG); PH, URINE 7.5 (5.0-8.5); URINE COLOR LIGHT-YELLOW (YELLW/STRAW)
[2016-10-17] MEDS: SODIUM CHLOR 0.9% 1000 ML INJ 1,000 ML IV SCH ×2 (02:42→17:16)
[2016-10-17] MEDS: RESP: ALBUTEROL 2.5 MG/IPRATROPIUM 0.5 MG NEB (SCH) NEB ×6 (03:28→23:34)
--- NOTE | 2016-10-17 03:51 | HHI.HP ---
[facility] Service Critical Care Medicine Primary Care Physician Kael Sutton M.D. Admission Diagnosis hypercarbic respiratory failure Diagnosis: Travel History International Travel<30 Days: No Contact w/Intl Traveler <30 Da: No Traveled to Known Affected Are: No History of Present Illness 51-year-old female presents to the emergency department via EMS from [facility] she resides for her schizophrenia. Patient does have history of schizophrenia, COPD, hyponatremia, pneumonia. Patient was just discharged from the hospital today after being admitted for hyponatremia. She is alert and oriented to self, but not place, time or situation. However, She did tell the nurse that the month was October. Apparently, the patient had a fall at [facility]. EMS was called and she was found to have oxygen saturation in the 70s on room air. She was initially placed on nonrebreather and her oxygen saturation did, up to 99%. The patient is a poor historian. In the ER per documentation she stated "I don't feel good, I hear voices, I'm suicidal". Looking back in the chart, the patient has been admitted and intubated before for respiratory distress. Patient developed worsening respiratory distress and was noted to have elevated PCO2 on her ABG. She was trialed on BiPAP however failed and was subsequently intubated by ER physician and placed on mechanical ventilation and started on propofol for sedation. A chest x-ray showed a left lower lobe infiltrate. She was accepted for admission by critical care medicine service. When I evaluated the patient in the ER she was sedated with propofol, orally intubated on mechanical ventilation. Of note she had recently been admitted for hyponatremia and discharged couple of days ago. History PFSH Past Medical History Asthma: No Autoimmune Disease: No Anxiety: Yes Depression: No Cancer: No Cardiovascular Problems: Yes COPD: Yes Cerebrovascular Accident: No Diminished Hearing: No Endocrine: No Gastrointestinal Disorders: No Genitourinary: No Immune Disorder: No Implanted Vascular Access Dvce: No Musculoskeletal: No Neurologic: Yes (ENCEPHALOPATHY) Psychiatric: Yes (pt has been hospitalized for psychiatric problems) Reproductive: No Respiratory: Yes Immunizations Current: No Migraines: Yes Sleep Apnea: No Past Surgical History AICD: No Genitourinary Surgery: No Social History Alcohol Use: No Tobacco Use: Yes (1 PACK DAILY ) Substance Use: No Allergies-Medications Allergies-Medications (Allergen,Severity, Reaction): Coded Allergies: Haldol (Verified Allergy, Unknown, 10/16/16) Reported Meds & Prescriptions Reported Meds & Active Scripts Active Reported Metoprolol Tartrate 25 Mg Tab 12.5 Mg PO BID Fluphenazine Decanoate Inj (Fluphenazine Decanoate) 125 Mg/5 Ml Inj 25 Mg IM EVERY 2 WEEKS Depakote ER (Divalproex Sodium) 500 Mg Mila 1,000 Mg PO HS Timoptic Opth Drops (Timolol Opth Drops) 0.5 % Soln 1 Drop EACH EYE TID Lactulose Liq (Lactulose) 10 Gm/15 Ml Soln 30 Ml PO TID Advair Diskus Inh (Fluticasone-Salmeterol Inh) 250-50 Mcg/Blist Aer 1 Puff INH BID Rinse mouth after use. Fluphenazine (Fluphenazine HCl) 10 Mg Tab 10 Mg PO BID Oxcarbazepine 300 Mg Tab 300 Mg PO BID Divalproex ER (Divalproex Sodium) 500 Mg Tab 500 Mg PO DAILY IN THE AM Sodium Chloride 1 Gm Tab 2 Gm PO DAILY Review of Systems ROS Limitations: Clinical Condition, Intubated Physical Exam Vital Signs Vital Signs Date Time Temp Pulse Resp B/P Pulse Ox O2 Delivery O2 Flow Rate FiO2 10/17/16 02:30 96 50 10/17/16 02:12 99 12 113/74 100 Ventilator 70 10/17/16 01:21 120 12 130/83 Ventilator 70 10/17/16 01:19 70 10/17/16 00:37 50 10/17/16 00:37 95 50 10/17/16 00:35 87 16 142/75 100 Non-Rebreather 15 10/16/16 23:22 96 50 10/16/16 23:15 BiPAP 10/16/16 23:06 94 Nasal Cannula 4 10/16/16 22:09 18 10/16/16 22:04 97.9 108 16 167/81 91 10/16/16 22:00 100 Non-Rebreather 15 10/16/16 22:00 104 16 88 Room Air Physical Exam HEENT/ Neuro: Sedated, orally intubated, no pallor or icterus, tongue/ mucosa moist. Pupils 3 mm bilaterally reacting actively to light Neck: No JVD Chest/Pulm: on mech vent, good air entry bilaterally, no wheezing or crackles. Scattered rhonchi CVS: S1-S2 regular, no murmur GI/abdomen: soft, nontender, bowel sounds sluggish Extremities: warm bilaterally, no edema. Abrasions noted on bilateral lower extremities. Laboratory Laboratory Tests Test 10/16/16 10/16/16 10:28 22:51 White Blood Count 12.9 Red Blood Count 3.95 Hemoglobin 13.1 Hematocrit 38.5 Mean Corpuscular Volume 97.4 Mean Corpuscular Hemoglobin 33.2 Mean Corpuscular Hemoglobin 34.1 Concent Red Cell Distribution Width 13.5 Platelet Count 208 Mean Platelet Volume 8.8 Neutrophils (%) (Auto) 85.2 Lymphocytes (%) (Auto) 5.9 Monocytes (%) (Auto) 8.5 Eosinophils (%) (Auto) 0.1 Basophils (%) (Auto) 0.3 Neutrophils # (Auto) 11.0 Lymphocytes # (Auto) 0.8 Monocytes # (Auto) 1.1 Eosinophils # (Auto) 0.0 Basophils # (Auto) 0.0 CBC Comment DIFF FINAL Differential Comment Sodium Level 129 Potassium Level 3.9 Chloride Level 86 Carbon Dioxide Level 38.5 Anion Gap 5 Blood Urea Nitrogen 7 Creatinine 0.37 Estimat Glomerular Filtration 183 Rate Random Glucose 124 Lactic Acid Level 0.7 Calcium Level 7.9 Magnesium Level 2.0 Total Bilirubin 0.2 Aspartate Amino Transf 12 (AST/SGOT) Alanine Aminotransferase 18 (ALT/SGPT) Alkaline Phosphatase 88 Total Creatine Kinase 75 Troponin I 0.03 B-Type Natriuretic Peptide 228 Total Protein 6.8 Albumin 3.5 Blood Gas Puncture Site LT RADIAL Blood Gas Patient Temperature 98.6 Blood Gas HCO3 39 Blood Gas Base Excess 11.0 Blood Gas Oxygen Saturation 92 Arterial Blood pH 7.23 Arterial Blood Partial 97 Pressure CO2 Arterial Blood Partial 90 Pressure O2 Arterial Blood Oxygen Content 17.0 Arterial Blood 2.1 Carboxyhemoglobin Arterial Blood Methemoglobin 1.8 Blood Gas Hemoglobin 13.2 Oxygen Delivery Device NASAL CANNULA Blood Gas Liter Flow 2 Date/Time Procedure Status Source Growth 10/17/16 02:00 Legionella Antigen Received Urine Catheterized Urine Pending 10/17/16 02:00 Streptococcus pneumoniae Antigen (M Received Urine Catheterized Urine Pending 10/16/16 10:28 Aerobic Blood Culture Received Blood Peripheral Pending 10/16/16 10:28 Anaerobic Blood Culture Received Blood Peripheral Pending Result Diagram: 10/16/16 1028 10/16/16 1028 Imaging Last Impressions Chest X-Ray 10/17/16 0000 Signed Impressions: Service Date/Time: Monday, October 17, 2016 01:04 - CONCLUSION: 1. Endotracheal tube and nasogastric tube positions as above. 2. No significant change perihilar and basilar consolidation on the left. Kt Vyas MD Septic Shock Reassessment Heart: Regular rate and rhythm Lungs: Course Skin: Warm Peripheral Pulses: Bounding Right Radial Assessment and Plan Assessment and Plan 51-year-old female with: Fall Acute on chronic respiratory failure requiring mechanical ventilation Acute on chronic respiratory acidosis Pneumonia COPD exacerbation Schizophrenia Hyponatremia Plan: Neuro: Sedation with propofol. Continue current psychiatric medications. Cardiovascular: IV hydration, watch for hypotension Pulmonary: Continue mechanical ventilation, vent bundle, bronchodilators, Solu- Medrol. Daily C Pap trials to decide extubation GI/liver: Start tube feeds and advanced to goal as tolerated Renal/: IV hydration, strict intake output, monitor and replete electrolytes, follow BUN/creatinine. Continue Salt Tabs for hyponatremia Heme: Follow CBC ID: Follow-up blood cultures, sputum Gram stain and cultures. Check UA. Urine for strep pneumo and Legionella antigen. Nasal washings for influenza A and B. Empiric antibiotic coverage with IV cefepime/azithromycin. Endocrine: SSI for glycemic control Prophylaxis: PPI/SCDs/Lovenox Condition critical Time spent on critical care excluding procedures 60 minutes Sav Romo MD Oct 17, 2016 03:51
[2016-10-17] MEDS: CHLORHEXIDINE GLUCONATE 2 % 1 PACK (2 CLOTHS) TOP SCH (03:55)
[2016-10-17 04:48] LABS: BLOOD GAS BASE EXCESS 8.9 mmol/L (-2-2); BLOOD GAS CARBOXYHEMOGLOBIN 1.8 % (0-4); BLOOD GAS HCO3 33 mmol/L (22-26); BLOOD GAS METHEMOGLOBIN 1.1 % (0-2); BLOOD GAS O2 HGB SATURATION 94 % (90-100); BLOOD GAS OXYGEN CONTENT 16.3 Vol % (12.0-20.0); BLOOD GAS PCO2 41 mmHg (38-42); BLOOD GAS PO2 75 mmHg (61-120); BLOOD GAS TOTAL HGB 12.3 G/DL (12.0-16.0); CRITICAL VALUE YES; OXYGEN DEVICE VENTILATOR; TEMP CORR TO 98.6
[2016-10-17 04:49] LABS: DRAW SITE RT BRACHIAL; FIO2 70 %; NUMBER OF ARTERIAL PUNCTURES 1; STAT NO; ULNAR PULSE PRESENT; VENT SETTINGS AC20/500/PEEP5
[2016-10-17] MEDS: ENOXAPARIN SODIUM 40 MG/0.4 ML SYRINGE SQ SCH (06:42)
[2016-10-17] MEDS: methylPREDNISolone SOD SUCC 125 MG/2 ML VIAL IV SCH ×3 (06:42→22:24)
[2016-10-17] MEDS: INSULIN ASPART SUPPLEMENTAL SCALE SQ SCH ×3 (06:46→20:22)
--- NOTE | 2016-10-17 07:05 | PD ---
HPI Chief Complaint: Respiratory Symptoms Time Seen by Provider: 22:01 Travel History International Travel<30 days: No Contact w/Intl Traveler<30days: No Traveled to known affect area: No History of Present Illness HPI This is a 51-year-old female with history of schizophrenia and COPD with chronic CO2 retention and multiple episodes of respiratory failure and intubation in the past who presents to the emergency department with all at her assisted living facility having been found with a oxygen saturation in the 70s. She provides very little history. She was admitted several days ago in the setting of hyponatremia and discharged shortly after. PFSH Past Medical History Asthma: No Autoimmune Disease: No Anxiety: Yes Depression: No Cancer: No Cardiovascular Problems: Yes COPD: Yes Cerebrovascular Accident: No Diminished Hearing: No Endocrine: No Gastrointestinal Disorders: No Genitourinary: No Hypertension: Yes Immune Disorder: No Implanted Vascular Access Dvce: No Musculoskeletal: No Neurologic: Yes (ENCEPHALOPATHY) Psychiatric: Yes (pt has been hospitalized for psychiatric problems) Reproductive: No Respiratory: Yes Immunizations Current: No Migraines: Yes Sleep Apnea: No ?: Not Past Surgical History AICD: No Genitourinary Surgery: No Social History Alcohol Use: No Tobacco Use: Yes (1 PACK DAILY ) Substance Use: No Allergies-Medications (Allergen,Severity, Reaction): Coded Allergies: Haldol (Verified Allergy, Unknown, 10/16/16) Reported Meds & Prescriptions Reported Meds & Active Scripts Active Reported Metoprolol Tartrate 25 Mg Tab 12.5 Mg PO BID Fluphenazine Decanoate Inj (Fluphenazine Decanoate) 125 Mg/5 Ml Inj 25 Mg IM EVERY 2 WEEKS Depakote ER (Divalproex Sodium) 500 Mg Mila 1,000 Mg PO HS Timoptic Opth Drops (Timolol Opth Drops) 0.5 % Soln 1 Drop EACH EYE TID Lactulose Liq (Lactulose) 10 Gm/15 Ml Soln 30 Ml PO TID Advair Diskus Inh (Fluticasone-Salmeterol Inh) 250-50 Mcg/Blist Aer 1 Puff INH BID Rinse mouth after use. Fluphenazine (Fluphenazine HCl) 10 Mg Tab 10 Mg PO BID Oxcarbazepine 300 Mg Tab 300 Mg PO BID Divalproex ER (Divalproex Sodium) 500 Mg Tab 500 Mg PO DAILY IN THE AM Sodium Chloride 1 Gm Tab 2 Gm PO DAILY Review of Systems ROS Limitations: Poor Historian Physical Exam Narrative GENERAL: Frail, chronically unwell-appearing SKIN: Warm and dry. HEAD: Atraumatic. Normocephalic. EYES: Pupils equal and round. No injection or drainage. ENT: Dry mucous membranes. NECK: Trachea midline. CARDIOVASCULAR: Regular rate and rhythm. No murmur appreciated. RESPIRATORY: Accessory muscle use, diffuse wheezing, rhonchi in the left lung base GASTROINTESTINAL: Abdomen soft, non-tender, nondistended. MUSCULOSKELETAL: No obvious deformities. NEUROLOGICAL: Awake and alert. No obvious cranial nerve deficits. Moving all extremities. PSYCHIATRIC: Appropriate mood and affect; insight and judgment normal. Data Data Last Documented VS Vital Signs Date Time Temp Pulse Resp B/P Pulse Ox O2 Delivery O2 Flow Rate FiO2 10/17/16 00:37 50 10/17/16 00:37 95 10/17/16 00:35 87 16 142/75 Non-Rebreather 15 10/16/16 22:04 97.9 Orders Complete Blood Count With Diff (10/16/16 22:08) Comprehensive Metabolic Panel (10/16/16 22:08) B-Type Natriuretic Peptide (10/16/16 22:08) Magnesium (Mg) (10/16/16 22:08) Ckmb (Isoenzyme) Profile (10/16/16 22:08) Troponin I (10/16/16 22:08) Arterial Blood Gas (Abg) (10/16/16 22:08) Blood Culture (10/16/16 22:08) Iv Access Insert/Monitor (10/16/16 22:08) Electrocardiogram (10/16/16 22:08) Ecg Monitoring (10/16/16 22:08) Oximetry (10/16/16 22:08) Oxygen Administration (10/16/16 22:08) Chest, Single Ap (10/16/16 22:08) Sodium Chloride 0.9% Flush (Ns Flush) (10/16/16 22:15) Lactic Acid Sepsis Protocol (10/16/16 22:08) Methylprednisolone So Succ Inj (Solumedr (10/16/16 23:00) Albuterol-Ipratropium Neb (Duoneb Neb) (10/16/16 23:00) Cefepime Inj (Maxipime Inj) (10/17/16 00:00) Azithromycin Inj (Zithromax Inj) (10/17/16 00:00) Arterial Blood Gas (Abg) (10/16/16 ) Etomidate Inj (Amidate Inj) (10/17/16 00:22) Admit Order (Ed Use Only) (10/17/16 00:45) Labs Laboratory Tests Test 10/16/16 10/16/16 10/16/16 00:00 10:28 22:51 Blood Gas Puncture Site LT RADIAL LT RADIAL Blood Gas Patient Temperature 98.6 98.6 Blood Gas HCO3 39 mmol/L 39 mmol/L Blood Gas Base Excess 11.9 mmol/L 11.0 mmol/L Blood Gas Oxygen Saturation 89 % 92 % Arterial Blood pH 7.30 7.23 Arterial Blood Partial 80 mmHg 97 mmHg Pressure CO2 Arterial Blood Partial 67 mmHG 90 mmHG Pressure O2 Arterial Blood Oxygen Content 16.2 Vol % 17.0 Vol % Arterial Blood 2.1 % 2.1 % Carboxyhemoglobin Arterial Blood Methemoglobin 1.9 % 1.8 % Blood Gas Hemoglobin 12.9 G/DL 13.2 G/DL Oxygen Delivery Device NPPV NASAL CANNULA Blood Gas Ventilator Setting IPAP10/EPAP5 Blood Gas Inspired Oxygen 50 % White Blood Count 12.9 TH/MM3 Red Blood Count 3.95 MIL/MM3 Hemoglobin 13.1 GM/DL Hematocrit 38.5 % Mean Corpuscular Volume 97.4 FL Mean Corpuscular Hemoglobin 33.2 PG Mean Corpuscular Hemoglobin 34.1 % Concent Red Cell Distribution Width 13.5 % Platelet Count 208 TH/MM3 Mean Platelet Volume 8.8 FL Neutrophils (%) (Auto) 85.2 % Lymphocytes (%) (Auto) 5.9 % Monocytes (%) (Auto) 8.5 % Eosinophils (%) (Auto) 0.1 % Basophils (%) (Auto) 0.3 % Neutrophils # (Auto) 11.0 TH/MM3 Lymphocytes # (Auto) 0.8 TH/MM3 Monocytes # (Auto) 1.1 TH/MM3 Eosinophils # (Auto) 0.0 TH/MM3 Basophils # (Auto) 0.0 TH/MM3 CBC Comment DIFF FINAL Differential Comment Sodium Level 129 MEQ/L Potassium Level 3.9 MEQ/L Chloride Level 86 MEQ/L Carbon Dioxide Level 38.5 MEQ/L Anion Gap 5 MEQ/L Blood Urea Nitrogen 7 MG/DL Creatinine 0.37 MG/DL Estimat Glomerular Filtration 183 ML/MIN Rate Random Glucose 124 MG/DL Lactic Acid Level 0.7 mmol/L Calcium Level 7.9 MG/DL Magnesium Level 2.0 MG/DL Total Bilirubin 0.2 MG/DL Aspartate Amino Transf 12 U/L (AST/SGOT) Alanine Aminotransferase 18 U/L (ALT/SGPT) Alkaline Phosphatase 88 U/L Total Creatine Kinase 75 U/L Troponin I 0.03 NG/ML B-Type Natriuretic Peptide 228 PG/ML Total Protein 6.8 GM/DL Albumin 3.5 GM/DL Blood Gas Liter Flow 2 L/M MDM Medical Decision Making Medical Screen Exam Complete: Yes Emergency Medical Condition: Yes Interpretation(s) Afebrile, tachycardic, hypoxic Leukocytosis with left shift Hyponatremia Lactic acidosis 0.7 ABG: Respiratory acidosis with metabolic compensation Chest x-ray: Left basilar airspace disease Differential Diagnosis Pneumonia, COPD exacerbation, polypharmacy, pulmonary embolism, congestive heart failure Narrative Course This is a 51-year-old female who presents to the emergency department with increasing shortness of breath and hypoxia following a fall. She is placed on a monitor and an IV was established. She was found to be in severe respiratory distress, with accessory muscle use and hypoxia. She is placed on BiPAP and administered serial bronchodilator treatments and salumedrol. Initial ABG demonstrated a PCO2 of 90 but pH of 7.23 indicating chronic compensation. She was given a trial of BiPAP however she became agitated, and appeared to be increasingly dyspneic. Ultimately the decision was made to intubate the patient. Patient was covered with antibiotics for healthcare acquired pneumonia. She'll be admitted to the intensive care unit. Critical Care Narrative Aggregate critical care time was 50 minutes. Time to perform other separately billable procedures was not included in the critical care time. My time did not include minutes spent treating any other patients simultaneously or on activities that did not directly contribute to the patient's treatment. The services I provided to this patient were to treat and/or prevent clinically significant deterioration that could result in: Disability, I provided critical care services requiring my management, as noted below: Chart data review, documentation time, medication orders and management, vital sign assessments/reviewing monitor data, ordering and reviewing lab tests, ordering and interpreting/reviewing x-rays and diagnostic studies, care of the patient and discussion of the patient with the admitting physicians. Procedures Procedure Narrative After the risks and benefits were discussed the following procedure was performed: INTUBATION: The patient was put in optimal position for the procedure. Rapid sequence intubation was initiated by me using 20 milligrams of etomidate IV and 100 milligrams of succinylcholine IV. The patient was intubated with a 7.5 cuffed endotracheal tube. Tube placement was confirmed by visualization of the tube and balloon passing through the cords, capnometry and subsequent chest x- ray. Breath sounds were equal and well aerated bilaterally postintubation. No breath sounds over stomach. Patient tolerated procedure well. Physician Communication Physician Communication Discussed with Dr. Dr. Romo Diagnosis Primary Impression: Pneumonia Qualified Code: J18.1 - Pneumonia of left lower lobe due to infectious organism Additional Impression: Acute hypercapnic respiratory failure Admitting Information Admitting Physician Requests: Admit Muriel Richard MD Oct 17, 2016 07:05
[2016-10-17] MEDS: SODIUM CHLORIDE 1 GRAM TAB PO SCH (08:28)
[2016-10-17] MEDS: SODIUM CHLORIDE 0.9% FLUSH 5 ML FLUSH IVF SCH ×2 (08:29→20:22)
[2016-10-17] MEDS: OXcarbazepine 300 MG TAB PO SCH ×2 (08:29→20:23)
[2016-10-17] MEDS: TIMOLOL MALEATE 0.5% OPHT SOLN 5 ML BTL EACH EYE SCH ×3 (08:29→17:16)
[2016-10-17] MEDS: PANTOPRAZOLE SODIUM 40 MG VIAL IV SCH (08:29)
[2016-10-17] MEDS: LACTULOSE SYRUP 20 GM/30 ML CUP PO SCH ×3 (08:29→17:16)
[2016-10-17] MEDS: CHLORHEXIDINE 0.12% (ORAL KIT) 15 ML CUP MT SCH ×2 (08:29→20:22)
[2016-10-17] MEDS: VALPROIC ACID SYRUP 250 MG/5 ML UDC PO SCH ×2 (08:33→20:22)
--- NOTE | 2016-10-17 09:55 | RADRPT ---
EXAM DATE/TIME: 10/17/2016 09:37 [place] COMPARISON: CT BRAIN W/O CONTRAST, October 14, 2016, 19:28. INDICATIONS : Altered mental status. RADIATION DOSE: 47.56 CTDIvol (mGy) MEDICAL HISTORY : Hypertension. Chronic obstructive pulmonary disease. SURGICAL HISTORY : None. ENCOUNTER: Initial ACUITY: 1 day PAIN SCALE: Non-responsive LOCATION: cranial TECHNIQUE: Multiple contiguous axial images were obtained of the head. Using automated exposure control and adj ustment of the mA and/or kV according to patient size, radiation dose was kept as low as reasonably a chievable to obtain optimal diagnostic quality images. FINDINGS: CEREBRUM: The ventricles are normal for age. No evidence of midline shift, mass lesion, hemorrhage or acute in farction. No extra-axial fluid collections are seen. POSTERIOR FOSSA: The cerebellum and brainstem are intact. The 4th ventricle is midline. The cerebellopontine angle i s unremarkable. EXTRACRANIAL: The visualized portion of the orbits is intact. SKULL: The calvaria is intact. No evidence of skull fracture. CONCLUSION: Normal examination. Parrish Martinez MD on October 17, 2016 at 9:53 Board Certified Radiologist. This report was verified electronically.
[2016-10-17] MEDS: CEFEPIME INJ 2,000 MG in SODIUM CHLORIDE 0.9% INJ 100 ML IV SCH ×2 (10:10→17:16)
--- NOTE | 2016-10-17 13:09 | EKG ---
Date Performed: 10/16/2016 Time Performed: 22:34:03 PTAGE: 51 years EKG: Sinus rhythm WITH FIRST DEGREE AV BLOCK POSSIBLE LEFT ATRIAL ENLARGEMENT LEFT BUNDLE BRANCH BLOCK ABNORMAL ECG Co mpared to prior tracing no significant change PREVIOUS TRACING : 10/14/2016 19.54 DOCTOR: Mu aJne Interpretating Date/Time 10/17/2016 13:07:47
[2016-10-17] MEDS: DEXMEDETOMIDINE INJ 50 ML IV SCH ×3 (17:16→22:48)
[2016-10-18] VITALS (19 sets, daily range): BP systolic 117–145; BP diastolic 64–91; PULSE 43–119; RESP 20–24; TEMP 97.6–99.4; O2SAT 93–100
[2016-10-18] MEDS: AZITHROMYCIN INJ 500 MG in SODIUM CHLOR 0.9% 250 ML INJ 250 ML IV SCH (01:09)
[2016-10-18] MEDS: INSULIN ASPART SUPPLEMENTAL SCALE SQ SCH ×4 (01:09→20:11)
[2016-10-18] MEDS: DEXMEDETOMIDINE INJ 50 ML IV SCH ×2 (01:50→04:42)
[2016-10-18] MEDS: CEFEPIME INJ 2,000 MG in SODIUM CHLORIDE 0.9% INJ 100 ML IV SCH ×3 (01:51→18:21)
[2016-10-18] MEDS: RESP: ALBUTEROL 2.5 MG/IPRATROPIUM 0.5 MG NEB (SCH) NEB ×6 (03:45→23:32)
[2016-10-18] MEDS: CHLORHEXIDINE GLUCONATE 2 % 1 PACK (2 CLOTHS) TOP SCH (04:00)
[2016-10-18] MEDS: methylPREDNISolone SOD SUCC 125 MG/2 ML VIAL IV SCH ×3 (05:08→20:20)
[2016-10-18] MEDS: ENOXAPARIN SODIUM 40 MG/0.4 ML SYRINGE SQ SCH (05:08)
[2016-10-18] MEDS: SODIUM CHLOR 0.9% 1000 ML INJ 1,000 ML IV SCH ×2 (05:09→20:11)
[2016-10-18 06:03] LABS: AUTOMATED NEUTROPHIL # 7.7 TH/MM3 (1.8-7.7); HEMATOCRIT 33.9 % (35.0-46.0); HEMO FLAGS DIFF FINAL; LYMPH % 6.3 % (9.0-44.0); LYMPHOCYTE # 0.5 TH/MM3 (1.0-4.8); MEAN CORPUSCULAR HEMOGLOBIN 33.2 PG (27.0-34.0); MEAN CORPUSCULAR HGB CONC 34.6 % (32.0-36.0); MONO % 4.2 % (0.0-8.0); NEUT % 89.5 % (16.0-70.0); PLATELET COUNT 189 TH/MM3 (150-450); RED BLOOD COUNT 3.53 MIL/MM3 (4.00-5.30); RED CELL DISTRIBUTION WIDTH 13.7 % (11.6-17.2); WHITE BLOOD COUNT 8.6 TH/MM3 (4.0-11.0)
[2016-10-18 06:27] LABS: ALKALINE PHOSPHATASE 71 U/L (45-117); ALT (GPT) 12 U/L (10-53); ANION GAP 9 MEQ/L (5-15); AST (GOT) 5 U/L (15-37); BICARBONATE 26.1 MEQ/L (21.0-32.0); BLOOD UREA NITROGEN 16 MG/DL (7-18); CHLORIDE 98 MEQ/L (98-107); GLOMERULAR FILTRATION RATE 126 ML/MIN (>89); POTASSIUM 3.5 MEQ/L (3.5-5.1); SODIUM (NA) 133 MEQ/L (136-145); TOTAL BILIRUBIN ADULT 0.3 MG/DL (0.2-1.0)
[2016-10-18] MEDS: LACTULOSE SYRUP 20 GM/30 ML CUP PO SCH ×3 (07:49→18:21)
[2016-10-18] MEDS: SODIUM CHLORIDE 1 GRAM TAB PO SCH (07:49)
[2016-10-18] MEDS: OXcarbazepine 300 MG TAB PO SCH ×2 (07:49→20:19)
[2016-10-18] MEDS: VALPROIC ACID SYRUP 250 MG/5 ML UDC PO SCH ×2 (07:49→20:19)
[2016-10-18] MEDS: SODIUM CHLORIDE 0.9% FLUSH 5 ML FLUSH IVF SCH ×2 (07:50→20:19)
[2016-10-18] MEDS: TIMOLOL MALEATE 0.5% OPHT SOLN 5 ML BTL EACH EYE SCH ×3 (07:50→18:21)
[2016-10-18] MEDS: PANTOPRAZOLE SODIUM 40 MG VIAL IV SCH (07:50)
[2016-10-18] MEDS: CHLORHEXIDINE 0.12% (ORAL KIT) 15 ML CUP MT SCH ×2 (08:00→20:00)
--- NOTE | 2016-10-18 09:26 | HHI.CCPN ---
Subjective Remarks/Hospital Course 51-year-old female presents to the emergency department via EMS from [facility] she resides for her schizophrenia. Patient does have history of schizophrenia, COPD, hyponatremia, pneumonia. Patient was just discharged from the hospital today after being admitted for hyponatremia. She is alert and oriented to self, but not place, time or situation. However, She did tell the nurse that the month was October. Apparently, the patient had a fall at [facility]. EMS was called and she was found to have oxygen saturation in the 70s on room air. She was initially placed on nonrebreather and her oxygen saturation did, up to 99%. The patient is a poor historian. In the ER per documentation she stated "I don't feel good, I hear voices, I'm suicidal". Looking back in the chart, the patient has been admitted and intubated before for respiratory distress. Patient developed worsening respiratory distress and was noted to have elevated PCO2 on her ABG. She was trialed on BiPAP however failed and was subsequently intubated by ER physician and placed on mechanical ventilation and started on propofol for sedation. A chest x-ray showed a left lower lobe infiltrate. She was accepted for admission by critical care medicine service. When I evaluated the patient in the ER she was sedated with propofol, orally intubated on mechanical ventilation. Of note she had recently been admitted for hyponatremia and discharged couple of days ago. Objective Vital Signs Date Time Temp Pulse Resp B/P Pulse Ox O2 Delivery O2 Flow Rate FiO2 10/18/16 08:06 100 35 10/18/16 07:20 97.9 10/18/16 06:00 47 10/18/16 04:00 20 132/80 10/17/16 02:12 Ventilator 10/17/16 00:35 15 Intake and Output 10/17/16 10/17/16 10/18/16 08:00 16:00 00:00 Intake Total 269 ml 717 ml 1103 ml Output Total 600 ml 200 ml 425 ml Balance -331 ml 517 ml 678 ml Result Diagram: 10/18/16 0501 10/18/16 0501 Other Results Microbiology Date/Time Procedure Status Source Growth 10/17/16 02:00 Legionella Antigen - Final Complete Urine Catheterized Urine PRESUMPTIVE NEGATIVE FOR LEGIONELLA P... 10/17/16 02:00 Streptococcus pneumoniae Antigen (M - Final Complete Urine Catheterized Urine PRESUMPTIVE NEGATIVE FOR STREPTOCOCCU... Imaging Last Impressions Chest X-Ray 10/17/16 0000 Signed Impressions: Service Date/Time: Monday, October 17, 2016 01:04 - CONCLUSION: 1. Endotracheal tube and nasogastric tube positions as above. 2. No significant change perihilar and basilar consolidation on the left. Kt Vyas MD Objective Remarks HEENT/ Neuro: Sedated, orally intubated, no pallor or icterus, tongue/ mucosa moist. Pupils 3 mm bilaterally reacting actively to light Neck: No JVD Chest/Pulm: on mech vent, good air entry bilaterally, no wheezing or crackles. Scattered rhonchi CVS: S1-S2 regular, no murmur GI/abdomen: soft, nontender, bowel sounds sluggish Extremities: warm bilaterally, no edema. Abrasions noted on bilateral lower extremities. A/P Assessment and Plan 51-year-old female with: Fall Acute on chronic respiratory failure requiring mechanical ventilation Acute on chronic respiratory acidosis Pneumonia COPD exacerbation Schizophrenia Hyponatremia Plan: Neuro: Stop propofol. Start Precedex as needed. Continue current psychiatric medications. Cardiovascular: IV hydration, watch for hypotension Pulmonary: Attempt to wean off mechanical ventilation, vent bundle, bronchodilators, Solu-Medrol. Daily C Pap trials to decide extubation GI/liver: Continue tube feeds and advanced to goal as tolerated Renal/: IV hydration, strict intake output, monitor and replete electrolytes, follow BUN/creatinine. Continue Salt Tabs for hyponatremia Heme: Follow CBC ID: Follow-up blood cultures, sputum Gram stain and cultures. Check UA. Urine for strep pneumo and Legionella antigen. Nasal washings for influenza A and B. Empiric antibiotic coverage with IV cefepime/azithromycin. Endocrine: SSI for glycemic control Prophylaxis: PPI/SCDs/Lovenox Level III Mango Bravo MD Oct 18, 2016 09:26
[2016-10-18 10:10] LABS: BLOOD GAS CARBOXYHEMOGLOBIN 1.4 % (0-4); BLOOD GAS HCO3 24 mmol/L (22-26); BLOOD GAS METHEMOGLOBIN 0.9 % (0-2); BLOOD GAS O2 HGB SATURATION 95 % (90-100); BLOOD GAS OXYGEN CONTENT 15.7 Vol % (12.0-20.0); BLOOD GAS PCO2 37 mmHg (38-42); BLOOD GAS PO2 92 mmHg (61-120); BLOOD GAS TOTAL HGB 11.7 G/DL (12.0-16.0); CRITICAL VALUE NO; OXYGEN DEVICE VENTILATOR; TEMP CORR TO 98.6
[2016-10-18 10:11] LABS: DRAW SITE RT BRACHIAL; FIO2 35 %; NUMBER OF ARTERIAL PUNCTURES 1; STAT NO; ULNAR PULSE Y; VENT SETTINGS AC/VT550/R20/PEEP5
[2016-10-18] MEDS ORDERED: MODAFINIL 200 MG TAB PO ONE (12:00)
--- NOTE | 2016-10-18 17:11 | PD.CONS ---
HPI Service [facility] Consult Requested By Dr. Bravo Reason for Consult Medical management Primary Care Physician Kael Sutton M.D. Diagnoses: History of Present Illness This a 51-year-old female with significant past medical history of schizophrenia , COPD, tobacco abuse. She's had multiple admissions in the past for respiratory failure and require mechanical ventilation. Was recently admitted under services for hyponatremia. Patient is a resident at [facility]. Patient presented to the emergency room on 10/16/2016 after she was found hypoxic , sats 70% on room air. She was placed on nonrebreather and her oxygen sats did improve to 99%. In the ER, pt. verbalized that she did not feel well and she was hearing voices and verbalized that she was suicidal. Patient went into worsening respiratory distress, BiPAP was tried initially, and subsequently she was intubated. Patient was admitted under critical care services. Chest x- ray showed left lower lobe infiltrate. Patient is on empiric antibiotics. Patient was extubated today, she is down to 4 L nasal cannula, sats 95%. She is awake, she knows she is in the hospital, knows the year. She is not sure why she was admitted, she thinks it was because of her schizophrenia. She denies any suicidal ideation but indicates that she is very depressed. Denies any visual or auditory hallucinations. Hospitalist services are requested to assume medical management. (Gianna Urban) Review of Systems Respiratory: COMPLAINS OF: Cough, Wheezing, Sputum production, Shortness of breath Psychiatric: COMPLAINS OF: Depression (Gianna Urban) Past Family Social History Past Medical History Anxiety Schizophrenia COPD Tobacco abuse Migraines Recently admitted for hyponatremia Previous admissions for respiratory failure, has been intubated Anemia Seizure disorder? Past Surgical History Right cataract with previous surgery Reported Medications Reported Meds & Active Scripts Active Reported Metoprolol Tartrate 25 Mg Tab 12.5 Mg PO BID Fluphenazine Decanoate Inj (Fluphenazine Decanoate) 125 Mg/5 Ml Inj 25 Mg IM EVERY 2 WEEKS Depakote ER (Divalproex Sodium) 500 Mg Mila 1,000 Mg PO HS Timoptic Opth Drops (Timolol Opth Drops) 0.5 % Soln 1 Drop EACH EYE TID Lactulose Liq (Lactulose) 10 Gm/15 Ml Soln 30 Ml PO TID Advair Diskus Inh (Fluticasone-Salmeterol Inh) 250-50 Mcg/Blist Aer 1 Puff INH BID Rinse mouth after use. Fluphenazine (Fluphenazine HCl) 10 Mg Tab 10 Mg PO BID Oxcarbazepine 300 Mg Tab 300 Mg PO BID Divalproex ER (Divalproex Sodium) 500 Mg Tab 500 Mg PO DAILY IN THE AM Sodium Chloride 1 Gm Tab 2 Gm PO DAILY (Gianna Urban) Allergies: Coded Allergies: Haldol (Verified Allergy, Unknown, 10/16/16) Active Ordered Medications Inpatient Medications Acetaminophen (Tylenol) 650 mg Q6H PRN PO PAIN 1-10 AND/OR FEVER >101F; Start 10/17/16 at 02:30 Albuterol/ Ipratropium (Duoneb Neb) 1 ampule Q2HR NEB PRN INH SHORTNESS OF BREATH, wheezing; Start 10/17/16 at 02:30 Albuterol/ Ipratropium 1 ampule 1 ampule Q15M INH Last administered on 23:21; Start 10/16/16 at 23:00; Stop 10/16/16 at 23:31; Status DC Azithromycin/ Sodium Chloride (Zithromax Inj/ NS 250 ml Inj) 250 ml @ 250 mls/ hr Q24H IV Last administered on 10/18/16 01:09; Start 10/18/16 at 01:00 Cefepime HCl 2000 mg/Sodium Chloride 100 ml @ 200 mls/hr Q8H IV Last administered on 10/18/16 08:09; Start 10/17/16 at 10:00 Cefepime HCl/ Sodium Chloride (Maxipime Inj/NS Inj) 100 ml @ 200 mls/hr ONCE ONCE IV Last administered on 10/17/16 02:20; Start 10/17/16 at 00:00; Stop 07/23 at 00:29; Status DC Chlorhexidine Gluconate (Chlorhexidine 2% Cloth) 3 pack UNSCH PRN TOP HYGIENIC CARE; Start 10/17/16 at 02:30 Chlorhexidine Gluconate (Peridex 0.12% Liq) 15 ml BID@08,20 MT Last administered on 10/18/16 08:00; Start 10/17/16 at 08:00 Dexmedetomidine HCl (Precedex Inj) 50 ml @ 0 mls/hr TITRATE IV Last administered on 10/18/16 04:42; Start 10/17/16 at 16:30 Enoxaparin Sodium (Lovenox Inj) 40 mg Q24H SQ Last administered on 10/18/16 05 :08; Start 10/17/16 at 06:00 Etomidate (Amidate Inj) 30 mg ONCE ONCE IV PUSH Last administered on 01:58; Start 10/17/16 at 02:00; Stop 10/17/16 at 02:01; Status DC Fluphenazine HCl (Prolixin) 10 mg BID PO Last administered on 10/18/16 07:49; Start 10/17/16 at 09:00 Insulin Aspart (NovoLOG SUPPLEMENTAL SCALE) 1 QID@01,07,13,19 SQ Last administered on 10/18/16 13:14; Start 10/17/16 at 07:00 IV Flush (NS Flush) 2 ml BID IVF Last administered on 10/18/16 07:50; Start at 09:00 IV Flush 2 ml 2 ml UNSCH PRN IVF FLUSH AFTER USING IV ACCESS; Start 10/17/16 at 02:00; Stop 10/17/16 at 02:24; Status DC Lactulose (Lactulose Liq) 30 ml TID PO Last administered on 10/18/16 13:14; Start 10/17/16 at 09:00 Linezolid (Zyvox) 600 mg Q12HR PO ; Start 10/18/16 at 21:00; Stop 10/18/16 at 21 :00; Status DC Methylprednisolone Sodium Succinate (SoluMEDROL INJ) 125 mg ONCE ONCE IVP Last administered on 10/16/16 23:07; Start 10/16/16 at 23:00; Stop 10/16/16 at 23:01; Status DC Methylprednisolone Sodium Succinate 125 mg 125 mg Q8HR IV Last administered on 10/18/16 13:14; Start 10/17/16 at 06:00 Miscellaneous Information 1 [id number] ; Start 10/17/16 at 02:30 Modafinil (Provigil) 200 mg ONCE ONCE PO Last administered on 10/18/16 12:00 ; Start 10/18/16 at 12:00; Stop 10/18/16 at 12:01; Status DC Oxcarbazepine (Trileptal) 300 mg BID PO Last administered on 10/18/16 07:49; Start 10/17/16 at 09:00 Pantoprazole Sodium (Protonix Inj) 40 mg DAILY IV Last administered on 07:50; Start 10/17/16 at 09:00 Propofol (Diprivan 1000 Mg/100ml Inj) 100 ml @ 0 mls/hr TITRATE IV Last administered on 10/17/16 14:07; Start 10/17/16 at 02:00; Stop 10/17/16 at 16:29 ; Status DC Sodium Chloride (NS 1000 ml Inj) 1,000 ml @ 75 mls/hr [id number] IV Last administered on 10/18/16 05:09; Start 10/17/16 at 03:00 Sodium Chloride (Sodium Chloride) 2 gm DAILY PO Last administered on 10/18/16 07:49; Start 10/17/16 at 09:00 Succinylcholine Chloride 100 mg 100 mg ONCE ONCE IV PUSH Last administered on 10/17/16 01:57; Start 10/17/16 at 02:00; Stop 10/17/16 at 02:01; Status DC Timolol Maleate (Timoptic 0.5% Opt Soln) 1 drop TID EACH EYE Last administered on 10/18/16 13:14; Start 10/17/16 at 09:00 Valproic Acid 750 mg 750 mg BID PO Last administered on 10/18/16 07:49; Start 10/17/16 at 09:00 Family History Patient has no family close by, she doesn't know much about their past medical history Social History Patient lives at an assisted living facility, smokes 1 pack a day for many years , no alcohol abuse, no substance abuse. Patient has no children. Has no family living in the area. States that she has very close friends at a local [employer]ondoism. (Gianna Urban) Physical Exam Vital Signs Vital Signs Date Time Temp Pulse Resp B/P Pulse Ox O2 Delivery O2 Flow Rate FiO2 10/18/16 16:02 95 Nasal Cannula 4.00 10/18/16 14:03 35 10/18/16 14:00 64 10/18/16 12:00 45 10/18/16 12:00 98.1 64 20 117/64 99 10/18/16 12:00 54 10/18/16 11:28 96 35 10/18/16 10:00 78 10/18/16 08:06 100 35 10/18/16 08:00 43 10/18/16 07:20 97.9 10/18/16 07:20 45 10/18/16 06:00 47 10/18/16 04:45 99 45 10/18/16 04:00 98.1 63 20 132/80 100 10/18/16 04:00 45 10/18/16 04:00 63 10/18/16 02:00 49 10/18/16 01:25 99 45 10/18/16 00:00 45 10/18/16 00:00 50 10/18/16 00:00 97.6 50 20 145/83 100 10/17/16 22:45 99 45 10/17/16 22:00 52 10/17/16 20:06 100 45 10/17/16 20:00 45 10/17/16 20:00 57 10/17/16 20:00 98.8 57 20 137/81 99 10/17/16 18:00 66 10/17/16 18:00 66 20 122/73 98 10/17/16 17:47 99 45 Physical Exam GENERAL: This is a middle aged female, appears older than stated age. SKIN: No rashes, ecchymoses or lesions. Cool and dry. HEAD: Atraumatic. Normocephalic. No temporal or scalp tenderness. EYES: Pupils equal round and reactive. Extraocular motions intact. No scleral icterus. No injection or drainage. ENT: Nose without bleeding, purulent drainage or septal hematoma. Throat without erythema, tonsillar hypertrophy or exudate. Uvula midline. Airway patent. Poor dentition noted, several teeth missing or broken. NECK: Trachea midline. No JVD or lymphadenopathy. Supple, nontender, no meningeal signs. CARDIOVASCULAR: Regular rate and rhythm without murmurs, gallops, or rubs. RESPIRATORY: Diminished at bases, coarse breath sounds upper lobes. Has a cough , nonproductive. GASTROINTESTINAL: Abdomen soft, non-tender, nondistended. No hepato-splenomegaly , or palpable masses. No guarding. MUSCULOSKELETAL: Extremities without clubbing, cyanosis, or edema. No joint tenderness, effusion, or edema noted. No calf tenderness. Negative Homans sign bilaterally. NEUROLOGICAL: Awake, oriented 2-3. No focal deficits. Speech is clear. Poor historian. PSYCHIATRIC: Complains of depression, at times tearful during interview. Denies suicidal ideation. No visual auditory hallucinations. Laboratory Laboratory Tests Test 10/18/16 10/18/16 05:01 10:00 White Blood Count 8.6 Red Blood Count 3.53 Hemoglobin 11.7 Hematocrit 33.9 Mean Corpuscular Volume 96.0 Mean Corpuscular Hemoglobin 33.2 Mean Corpuscular Hemoglobin 34.6 Concent Red Cell Distribution Width 13.7 Platelet Count 189 Mean Platelet Volume 9.8 Neutrophils (%) (Auto) 89.5 Lymphocytes (%) (Auto) 6.3 Monocytes (%) (Auto) 4.2 Eosinophils (%) (Auto) 0.0 Basophils (%) (Auto) 0.0 Neutrophils # (Auto) 7.7 Lymphocytes # (Auto) 0.5 Monocytes # (Auto) 0.4 Eosinophils # (Auto) 0.0 Basophils # (Auto) 0.0 CBC Comment DIFF FINAL Differential Comment Sodium Level 133 Potassium Level 3.5 Chloride Level 98 Carbon Dioxide Level 26.1 Anion Gap 9 Blood Urea Nitrogen 16 Creatinine 0.51 Estimat Glomerular Filtration 126 Rate Random Glucose 132 Calcium Level 8.2 Total Bilirubin 0.3 Aspartate Amino Transf 5 (AST/SGOT) Alanine Aminotransferase 12 (ALT/SGPT) Alkaline Phosphatase 71 Total Protein 5.8 Albumin 2.8 Blood Gas Puncture Site RT BRACHIAL Blood Gas Patient Temperature 98.6 Blood Gas HCO3 24 Blood Gas Base Excess 0.0 Blood Gas Oxygen Saturation 95 Arterial Blood pH 7.43 Arterial Blood Partial 37 Pressure CO2 Arterial Blood Partial 92 Pressure O2 Arterial Blood Oxygen Content 15.7 Arterial Blood 1.4 Carboxyhemoglobin Arterial Blood Methemoglobin 0.9 Blood Gas Hemoglobin 11.7 Oxygen Delivery Device VENTILATOR Blood Gas Ventilator Setting AC/VT550/R20/[id number] Blood Gas Inspired Oxygen 35 Date/Time Procedure Status Source Growth 10/17/16 03:30 Gram Stain - Final Resulted Sputum Endotracheal 10/17/16 03:30 Sputum Culture - Preliminary Resulted Sputum Endotracheal IMMATURE GROWTH - REINCUBATE 10/17/16 02:00 Legionella Antigen - Final Complete Urine Catheterized Urine PRESUMPTIVE NEGATIVE FOR LEGIONELLA P... 10/17/16 02:00 Streptococcus pneumoniae Antigen (M - Final Complete Urine Catheterized Urine PRESUMPTIVE NEGATIVE FOR STREPTOCOCCU... 10/16/16 10:28 Aerobic Blood Culture - Preliminary Resulted Blood Peripheral NO GROWTH IN 2 DAYS 10/16/16 10:28 Anaerobic Blood Culture - Preliminary Resulted Blood Peripheral NO GROWTH IN 2 DAYS (Gianna Urban) Result Diagram: 10/18/16 0501 10/18/16 0501 Imaging Last Impressions Head CT 10/17/16 0857 Signed Impressions: Service Date/Time: Monday, October 17, 2016 09:37 - CONCLUSION: Normal examination. Parrish Martinez MD Chest X-Ray 10/17/16 0000 Signed Impressions: Service Date/Time: Monday, October 17, 2016 01:04 - CONCLUSION: 1. Endotracheal tube and nasogastric tube positions as above. 2. No significant change perihilar and basilar consolidation on the left. Kt Vyas MD (Gianna Urban) A/P Diagnosis: (1) Acute respiratory failure with hypoxia and hypercarbia (2) Pneumonia (3) Schizophrenia (4) COPD (chronic obstructive pulmonary disease) (5) Depression (6) Seizure disorder (7) Encephalopathy (8) Hyponatremia Assessment and Plan Thank you for this consultation, we will assume medical management 51-year-old female with history of COPD, admitted in respiratory distress that required intubation. Admitted for acute on chronic respiratory failure, found with pneumonia -Continue with DuoNeb's -Continue with oxygen to keep sats were 90% -Continue with empiric antibiotic, follow cultures -Continue with IV steroids Schizophrenia, initially indicated hearing voices -Continue with Prolixin Metabolic encephalopathy, improving -Continue lactulose -Ammonia level in the morning Tobacco abuse Counseled about tobacco abuse, Nicotine patch has been ordered Depression, verbalizes feeling very depressed, denies suicidal ideation Consult psychiatry for evaluation Hyponatremia Continue with salt tabs -BMP in the morning Seizure disorder, stable Continue with home medications Continue Lovenox for DVT prophylaxis Protonix for GI prophylaxis Plan of care has been discussed with the patient, attending and registered nurse. Further management of the patient will be dependent on the hospital course We will follow up on recommendations per psychiatry, patient may need inpatient psychiatry if indicated. This patient was seen by myself and Dr. Logan, this consultation is written on his behalf (Gianna Urban) Assessment and Plan Late entry Evaluation was done yesterday in detail as above chart was reviewed in detail including meds labs and radiological data Plan of care discussed with RECTIFIER OPERATOR (Yehuda Logan MD) Problem Qualifiers (1) Pneumonia: Qualified Code: J18.1 - Pneumonia of left lower lobe due to infectious organism (2) Schizophrenia: Qualified Code: F20.9 - Schizophrenia, unspecified type (3) COPD (chronic obstructive pulmonary disease): Qualified Code: J44.1 - Chronic obstructive pulmonary disease with acute exacerbation (4) Depression: Qualified Code: F32.9 - Depression, unspecified depression type Gianna Urban Oct 18, 2016 17:11 Yehuda Logan MD Oct 19, 2016 11:56
[2016-10-18] MEDS ORDERED: GLUCAGON 1 MG/ML VIAL OTHER PRN (17:30)
[2016-10-18] MEDS ORDERED: DEXTROSE 50% IN WATER 50 ML VIAL(D50) IV PUSH PRN (17:30)
[2016-10-18] MEDS: REMOVE OLD NICODERM (NICOTINE) PATCH TD SCH (18:00)
[2016-10-18] MEDS: NICOTINE 7 MG/24 HR PATCH TD SCH (18:33)
[2016-10-18] MEDS ORDERED: LINEZOLID 600 MG TAB PO SCH (21:00)
[2016-10-18] MEDS: METOPROLOL TARTRATE 25 MG TAB PO SCH (23:57)
[2016-10-19] VITALS (13 sets, daily range): BP systolic 118–145; BP diastolic 64–91; PULSE 76–106; RESP 19–26; TEMP 98.2–98.9; O2SAT 83–98
[2016-10-19] MEDS: INSULIN ASPART SUPPLEMENTAL SCALE SQ SCH ×4 (01:00→19:00)
[2016-10-19] MEDS: AZITHROMYCIN INJ 500 MG in SODIUM CHLOR 0.9% 250 ML INJ 250 ML IV SCH (02:34)
[2016-10-19] MEDS: CEFEPIME INJ 2,000 MG in SODIUM CHLORIDE 0.9% INJ 100 ML IV SCH ×3 (02:34→18:09)
[2016-10-19] MEDS: CHLORHEXIDINE GLUCONATE 2 % 1 PACK (2 CLOTHS) TOP SCH (02:35)
[2016-10-19] MEDS: RESP: ALBUTEROL 2.5 MG/IPRATROPIUM 0.5 MG NEB (SCH) NEB ×6 (03:47→23:46)
[2016-10-19 04:40] LABS: AUTOMATED NEUTROPHIL # 8.2 TH/MM3 (1.8-7.7); HEMATOCRIT 33.3 % (35.0-46.0); HEMO FLAGS DIFF FINAL; LYMPH % 8.1 % (9.0-44.0); LYMPHOCYTE # 0.8 TH/MM3 (1.0-4.8); MEAN CELL VOLUME 96.9 FL (80.0-100.0); MEAN CORPUSCULAR HEMOGLOBIN 34.6 PG (27.0-34.0); MEAN CORPUSCULAR HGB CONC 35.6 % (32.0-36.0); MONO % 3.9 % (0.0-8.0); PLATELET COUNT 203 TH/MM3 (150-450); RED BLOOD COUNT 3.44 MIL/MM3 (4.00-5.30); RED CELL DISTRIBUTION WIDTH 13.9 % (11.6-17.2); WHITE BLOOD COUNT 9.3 TH/MM3 (4.0-11.0)
[2016-10-19] MEDS: methylPREDNISolone SOD SUCC 125 MG/2 ML VIAL IV SCH ×3 (05:03→20:58)
[2016-10-19] MEDS: ENOXAPARIN SODIUM 40 MG/0.4 ML SYRINGE SQ SCH (05:03)
[2016-10-19 05:13] LABS: ANION GAP 6 MEQ/L (5-15); AST (GOT) 6 U/L (15-37); BICARBONATE 31.9 MEQ/L (21.0-32.0); BLOOD UREA NITROGEN 13 MG/DL (7-18); CHLORIDE 97 MEQ/L (98-107); GLOMERULAR FILTRATION RATE 135 ML/MIN (>89); MAGNESIUM 2.1 MG/DL (1.5-2.5); POTASSIUM 3.5 MEQ/L (3.5-5.1); SODIUM (NA) 135 MEQ/L (136-145)
[2016-10-19 05:18] LABS: ALKALINE PHOSPHATASE 65 U/L (45-117); ALT (GPT) 13 U/L (10-53); TOTAL BILIRUBIN ADULT 0.2 MG/DL (0.2-1.0)
[2016-10-19] MEDS: CHLORHEXIDINE 0.12% (ORAL KIT) 15 ML CUP MT SCH ×2 (08:17→20:00)
[2016-10-19] MEDS: METOPROLOL TARTRATE 25 MG TAB PO SCH ×2 (08:19→20:56)
[2016-10-19] MEDS: OXcarbazepine 300 MG TAB PO SCH ×2 (08:19→20:56)
[2016-10-19] MEDS: SODIUM CHLORIDE 1 GRAM TAB PO SCH (08:19)
[2016-10-19] MEDS: LACTULOSE SYRUP 20 GM/30 ML CUP PO SCH ×3 (08:19→18:08)
[2016-10-19] MEDS: NICOTINE 7 MG/24 HR PATCH TD SCH (08:20)
[2016-10-19] MEDS: REMOVE OLD NICODERM (NICOTINE) PATCH TD SCH (08:20)
[2016-10-19] MEDS: PANTOPRAZOLE SODIUM 40 MG VIAL IV SCH (08:20)
[2016-10-19] MEDS: SODIUM CHLORIDE 0.9% FLUSH 5 ML FLUSH IVF SCH ×2 (08:21→20:57)
[2016-10-19] MEDS: SODIUM CHLOR 0.9% 1000 ML INJ 1,000 ML IV SCH (08:21)
[2016-10-19] MEDS: TIMOLOL MALEATE 0.5% OPHT SOLN 5 ML BTL EACH EYE SCH ×3 (08:22→18:09)
[2016-10-19] MEDS: VALPROIC ACID SYRUP 250 MG/5 ML UDC PO SCH ×2 (09:37→20:56)
--- NOTE | 2016-10-19 12:04 | HHI.PR ---
Subjective Remarks Patient has some hoarse voice No sore throat No trouble swallowing as per patient No neck pain No chest pain No abdominal pain No nausea vomiting Review of system for 10 point system otherwise unremarkable Objective Objective Results - Vital Signs Date Time Temp Pulse Resp B/P Pulse Ox O2 Delivery O2 Flow Rate FiO2 10/19/16 10:00 94 10/19/16 09:09 96 Nasal Cannula 4.00 10/19/16 08:00 98.7 79 22 145/89 83 10/19/16 08:00 79 10/19/16 06:00 88 10/19/16 04:00 98.6 90 26 125/91 98 10/19/16 04:00 90 10/19/16 02:00 80 10/19/16 00:00 98.8 105 21 138/83 95 10/19/16 00:00 105 10/18/16 22:00 118 10/18/16 20:00 119 10/18/16 20:00 99.4 119 22 143/83 93 10/18/16 19:20 98 Nasal Cannula 4.00 10/18/16 18:00 100 10/18/16 16:02 95 Nasal Cannula 4.00 10/18/16 16:00 99.1 108 24 140/91 95 10/18/16 16:00 108 10/18/16 14:03 35 10/18/16 14:00 64 10/18/16 12:00 45 10/18/16 12:00 98.1 64 20 117/64 99 10/18/16 12:00 54 I/O 10/18/16 10/18/16 10/18/16 10/19/16 10/19/16 10/19/16 07:00 15:00 23:00 07:00 15:00 23:00 Intake Total 1304 ml 1455 ml 1412 ml 1550 ml Output Total 200 ml 375 ml 2200 ml 1200 ml Balance 1104 ml 1080 ml -788 ml 350 ml Intake Oral 720 ml 900 ml IV Total 900 ml 794 ml 692 ml 650 ml Tube Feeding 344 ml 611 ml Tube Irrigant 60 ml 50 ml Output Urine Total 200 ml 375 ml 2200 ml 1200 ml # Bowel Movements 0 0 1 0 Result Diagram: 10/19/16 0416 10/19/16 0416 Imaging Last Impressions Head CT 10/17/16 0857 Signed Impressions: Service Date/Time: Monday, October 17, 2016 09:37 - CONCLUSION: Normal examination. Parrish Martinez MD Chest X-Ray 10/17/16 0000 Signed Impressions: Service Date/Time: Monday, October 17, 2016 01:04 - CONCLUSION: 1. Endotracheal tube and nasogastric tube positions as above. 2. No significant change perihilar and basilar consolidation on the left. Kt Vyas MD Other Results Laboratory Tests Test 10/19/16 04:16 White Blood Count 9.3 Red Blood Count 3.44 Hemoglobin 11.9 Hematocrit 33.3 Mean Corpuscular Volume 96.9 Mean Corpuscular Hemoglobin 34.6 Mean Corpuscular Hemoglobin 35.6 Concent Red Cell Distribution Width 13.9 Platelet Count 203 Mean Platelet Volume 9.1 Neutrophils (%) (Auto) 88.0 Lymphocytes (%) (Auto) 8.1 Monocytes (%) (Auto) 3.9 Eosinophils (%) (Auto) 0.0 Basophils (%) (Auto) 0.0 Neutrophils # (Auto) 8.2 Lymphocytes # (Auto) 0.8 Monocytes # (Auto) 0.4 Eosinophils # (Auto) 0.0 Basophils # (Auto) 0.0 CBC Comment DIFF FINAL Differential Comment Sodium Level 135 Potassium Level 3.5 Chloride Level 97 Carbon Dioxide Level 31.9 Anion Gap 6 Blood Urea Nitrogen 13 Creatinine 0.48 Estimat Glomerular Filtration 135 Rate Random Glucose 105 Calcium Level 8.2 Phosphorus Level 3.3 Magnesium Level 2.1 Total Bilirubin 0.2 Aspartate Amino Transf 6 (AST/SGOT) Alanine Aminotransferase 13 (ALT/SGPT) Alkaline Phosphatase 65 Ammonia 37 Total Protein 5.6 Albumin 2.6 Date/Time Procedure Status Source Growth 10/17/16 03:30 Gram Stain - Final Resulted Sputum Endotracheal 10/17/16 03:30 Sputum Culture - Preliminary Resulted Sputum Endotracheal IMMATURE GROWTH - REINCUBATE 10/17/16 02:00 Legionella Antigen - Final Complete Urine Catheterized Urine PRESUMPTIVE NEGATIVE FOR LEGIONELLA P... 10/17/16 02:00 Streptococcus pneumoniae Antigen (M - Final Complete Urine Catheterized Urine PRESUMPTIVE NEGATIVE FOR STREPTOCOCCU... 10/16/16 10:28 Aerobic Blood Culture - Preliminary Resulted Blood Peripheral NO GROWTH IN 3 DAYS 10/16/16 10:28 Anaerobic Blood Culture - Preliminary Resulted Blood Peripheral NO GROWTH IN 3 DAYS Physical Exam Physical Exam GENERAL: This is a middle aged female, appears older than stated age. SKIN: No rashes, ecchymoses or lesions. Cool and dry. HEAD: Atraumatic. Normocephalic. No temporal or scalp tenderness. EYES: Pupils equal round and reactive. Extraocular motions intact. No scleral icterus. No injection or drainage. ENT: Throat without erythema, tonsillar hypertrophy or exudate. Uvula midline. Airway patent. Poor dentition noted, several teeth missing or broken. NECK: Trachea midline. No JVD or lymphadenopathy. Supple, nontender, no meningeal signs. CARDIOVASCULAR: Regular rate and rhythm without murmurs, gallops, or rubs. RESPIRATORY: Diminished at bases, coarse breath sounds upper lobes. GASTROINTESTINAL: Abdomen soft, non-tender, nondistended. No hepato-splenomegaly , or palpable masses. No guarding. MUSCULOSKELETAL: Extremities without clubbing, cyanosis, or edema. No joint tenderness, effusion, or edema noted. No calf tenderness. Negative Homans sign bilaterally. NEUROLOGICAL: Awake, oriented 2-3. No focal deficits. Speech is clear. Poor historian. PSYCHIATRIC: Feeling better. Denies suicidal ideation. No visual auditory hallucinations. A/P Assessment and Plan (1) Acute respiratory failure with hypoxia and hypercarbia (2) Pneumonia (3) Schizophrenia (4) COPD (chronic obstructive pulmonary disease) (5) Depression (6) Seizure disorder (7) Encephalopathy (8) Hyponatremia Plan 51-year-old female with history of COPD, admitted in respiratory distress that required intubation. Admitted for acute on chronic respiratory failure, found with pneumonia -Continue with DuoNeb's -Continue with oxygen to keep sats were 90% -Continue with empiric antibiotic, follow cultures -Continue with IV steroids, will decrease dose Schizophrenia, initially indicated hearing voices -Continue with Prolixin Metabolic encephalopathy, improving -Continue lactulose -Ammonia level reviewed Tobacco abuse Counseled about tobacco abuse, Nicotine patch has been ordered Depression, verbalizes feeling very depressed, denies suicidal ideation Consult psychiatry for evaluation Hyponatremia Continue with salt tabs -BMP in the morning Seizure disorder, stable Continue with home medications Continue Lovenox for DVT prophylaxis Protonix for GI prophylaxis Stable to be transfer to floor Plan of care has been discussed with the patient and registered nurse. Further management of the patient will be dependent on the hospital course We will follow up on recommendations per psychiatry, patient may need inpatient psychiatry if indicated. Yehuda Logan MD Oct 19, 2016 12:04
--- NOTE | 2016-10-19 15:33 | PD.CONS ---
Provisional Diagnosis Admission Date Oct 17, 2016 at 00:46 [place]. Schizophrenia History of Present Illness Service Psychiatry Consult Requested By Primary Care Physician Kael Sutton M.D. HPI The patient is a 51 years old woman, domiciled in a [facility] facility, with extensive psychiatric history of schizophrenia, multiple psychiatric hospitalizations, she is known by the psychiatric service, she was hospitalized in the 2500 units under the care of Dr. Bruce last July 2016, she has been treated with fluphenazine 10 mg twice a day and Depakote 1000 milligram twice a day, admitted in the hospital due to COPD exacerbation, she needed intubation. Consulted due to depression. Patient was seen today for psychiatric evaluation, she had a really hard time expressing herself due to sore throat most probably secondary to intubation, she could barely articulate words. She does repeatedly states that she is depressed, she denies suicidal or homicidal ideation, she denies visual and auditory hallucinations, but she repeatedly stated that she feels sad and depressed. She asked to be seen in another moment when she can talk better. Review of Systems Constitutional: DENIES: Diaphoretic episodes, Fatigue, Fever, Weight gain, Weight loss, Chills, Dizziness, Change in appetite, Night Sweats Endocrine: DENIES: Abnorml menstrual pattern, Heat/cold intolerance, Polydipsia , Polyuria, Polyphagia Eyes: DENIES: Blurred vision, Diplopia, Eye inflammation, Eye pain, Vision loss , Photosensitivity, Double Vision Ears, nose, mouth, throat: DENIES: Tinnitus, Hearing loss, Vertigo, Nasal discharge, Oral lesions, Throat pain, Hoarseness, Ear Pain, Running Nose, Epistaxis, Sinus Pain, Toothache, Odynophagia Respiratory: DENIES: Apneas, Cough, Snoring, Wheezing, Hemoptysis, Sputum production, Shortness of breath Cardiovascular: DENIES: Chest pain, Palpitations, Syncope, Dyspnea on Exertion , PND, Lower Extremity Edema, Orthopnea, Claudication Gastrointestinal: DENIES: Abdominal pain, Black stools, Bloody stools, Constipation, Diarrhea, Nausea, Vomiting, Difficulty Swallowing, Anorexia Musculoskeletal: DENIES: Joint pain, Muscle aches, Stiffness, Joint Swelling, Back pain, Neck pain Integumentary: DENIES: Abnormal pigmentation, Pruritus, Rash, Nail changes, Breast masses, Breast skin changes, Nipple discharge Hematologic/lymphatic: DENIES: Bruising, Lymphadenopathy Immunologic/allergic: DENIES: Eczema, Urticaria Neurologic: DENIES: Abnormal gait, Headache, Localized weakness, Paresthesias, Seizures, Speech Problems, Tremor, Poor Balance Psychiatric: DENIES: Anxiety, Confusion, Mood changes, Depression, Hallucinations, Agitation, Suicidal Ideation, Homicidal Ideation, Delusions Past Family Social History Coded Allergies: Haldol (Verified Allergy, Unknown, 10/16/16) Reported Medications Metoprolol Tartrate 25 Mg Tab12.5 Mg PO BID #60 TAB Ref 0 10/15/16 Fluphenazine Decanoate Inj 125 Mg/5 Ml Inj25 Mg IM EVERY 2 WEEKS #1 VIAL 10/15/16 Divalproex ER (Depakote ER)500 Mg Taber1,000 Mg PO HS #60 TAB Ref 0 10/15/16 Timolol Opth Drops (Timoptic Opth Drops)0.5 % Soln1 Drop EACH EYE TID #1 BOTTLE Ref 0 10/15/16 Lactulose Liq 10 Gm/15 Ml Soln30 Ml PO TID Ref 0 10/15/16 Fluticasone-Salmeterol Inh (Advair Diskus Inh)250-50 Mcg/Blist Aer1 Puff INH BID #1 INHALER Ref 0 Rinse mouth after use. 10/15/16 Fluphenazine 10 Mg Tab10 Mg PO BID 10/15/16 Oxcarbazepine 300 Mg Mhg366 Mg PO BID #60 TAB Ref 0 10/15/16 Divalproex ER 500 Mg Ijb340 Mg PO DAILY IN THE AM #30 TAB Ref 0 10/15/16 Sodium Chloride 1 Gm Tab2 Gm PO DAILY Ref 0 07/19/16 Discontinued Reported Medications Risperidone Inj (Risperdal Consta Inj)50 Mg Inj50 Mg IM Q14D #2 VIAL Ref 0 07/19/16 Fluphenazine 2.5 Mg Tab1 Tab PO BID 07/19/16 Fluticasone-Vilanterol Inh (Breo Ellipta Inh)100-25 Mcg/Act Inh1 Puff INH DAILY #1 INHALER Ref 0 Use daily at the same time. 07/19/16 Oxcarbazepine 150 Mg Gzi536 Mg PO BID #60 TAB Ref 0 07/19/16 Divalproex ER 250 Mg Czohs989 Mg PO DAILY #30 TAB Ref 0 07/19/16 Olanzapine 10 Mg Tab10 Mg PO HS #30 TAB Ref 0 07/19/16 Furosemide 20 Mg Tab20 Mg PO DAILY #30 TAB Ref 0 07/19/16 Dorzolamide-Timolol Opth Drops (Cosopt Opth Drops)22.3-6.8 Mg/Ml Soln1 Drop EACH EYE TID #1 BOTTLE Ref 0 07/19/16 Benztropine 2 Mg Tab2 Mg PO BID #60 TAB Ref 0 07/19/16 Cholecalciferol (D3 Super Strength)2,000 Unit Cap1,000 Units PO DAILY #30 CAP Ref 0 07/19/16 Bupropion HCl 100 Mg Zvl866 Mg PO DAILY Ref 0 07/19/16 Albuterol 8.5 GM Inh (Proair Hfa 8.5 GM Inh)90 Mcg/Act Aer1 Puff INH Q6HR PRN ( SHORTNESS OF BREATH) #1 INHALER Ref 0 108 mcg/actuation 07/19/16 Current Medications Medications (Trade) Dose Ordered Sig/Sae Route Start Time Stop Time Status Last Admin (NS 1000 ml Inj) 1,000 ml @ 75 mls/hr [id number] IV 10/17/16 03:00 10/19/16 08:21 (NS Flush) 2 ml UNSCH PRN IVF 10/17/16 02:30 (NS Flush) 2 ml BID IVF 10/17/16 09:00 10/19/16 08:21 (Tylenol) 650 mg Q6H PRN PO 10/17/16 02:30 (Peridex 0.12% Liq) 15 ml BID@08,20 MT 10/17/16 08:00 10/19/16 08:17 (Protonix Inj) 40 mg DAILY IV 10/17/16 09:00 10/19/16 08:20 (Lovenox Inj) 40 mg Q24H SQ 10/17/16 06:00 10/19/16 05:03 Miscellaneous Information 1 Q361D XX 10/17/16 02:30 (Chlorhexidine 2% Cloth) 3 pack Taper DAILY@04 TOP 10/17/16 04:00 10/13/17 03:59 10/19/16 02:35 (Chlorhexidine 2% Cloth) 3 pack UNSCH PRN TOP 10/17/16 02:30 (NovoLOG SUPPLEMENTAL SCALE) 1 QID@01,07,13,19 SQ 10/17/16 07:00 10/18/16 20:11 (Prolixin) 10 mg BID PO 10/17/16 09:00 10/19/16 08:18 (Lactulose Liq) 30 ml TID PO 10/17/16 09:00 10/19/16 13:15 (Trileptal) 300 mg BID PO 10/17/16 09:00 10/19/16 08:19 (Sodium Chloride) 2 gm DAILY PO 10/17/16 09:00 10/19/16 08:19 (Timoptic 0.5% Opth Soln) 1 drop TID EACH EYE 10/17/16 09:00 10/19/16 13:15 Valproic Acid 750 mg 750 mg BID PO 10/17/16 09:00 10/19/16 09:37 Cefepime HCl 2000 mg/Sodium Chloride 100 ml @ 200 mls/hr Q8H IV 10/17/16 10:00 10/19/16 08:18 (Zithromax Inj/ NS 250 ml Inj) 250 ml @ 250 mls/hr Q24H IV 10/18/16 01:00 10/19/16 02:34 (Habitrol 7 Mg Patch.24 Hr) 1 patch DAILY TD 10/18/16 18:00 10/19/16 08:20 (D50w (Vial) Inj) 25 ml UNSCH PRN IV PUSH 10/18/16 17:30 (Glucagon Inj) 1 mg UNSCH PRN OTHER 10/18/16 17:30 Miscellaneous Information 1 DAILY TD 10/18/16 18:00 10/19/16 08:20 (Lopressor) 12.5 mg Q12HR PO 10/18/16 23:45 10/19/16 08:19 (SoluMEDROL INJ) 80 mg Q8HR IV 10/19/16 14:00 10/19/16 13:19 Physical Exam Vital Signs Vital Signs Date Time Temp Pulse Resp B/P Pulse Ox O2 Delivery O2 Flow Rate FiO2 10/19/16 14:00 106 10/19/16 12:00 98.2 22 118/64 98 10/19/16 09:09 Nasal Cannula 4.00 10/18/16 14:03 35 I/O 10/18/16 10/18/16 10/19/16 08:00 16:00 00:00 Intake Total 1304 ml 1455 ml 1412 ml Output Total 200 ml 375 ml 2200 ml Balance 1104 ml 1080 ml -788 ml Mental Status Examination Appearance woman, looks older for her stated age, poor dental hygiene, hospital [facility], poorly cooperative Speech: Other (patient is basically mute ) Orientation: Person, Place Thought Process: Goal Directed Thought Content: Other (not able to assess) Hallucination Type: None Attention and Concentration: Abnormal Suicidal Ideation: No Previous Suicide Attempts: No Homicidal Ideation: No Previous Homicide Attempts: No Affect: Sad Mood: Sad Motor Activity: Abnormal gait-specify (bradykinesia) Assessment & Plan Problem List: (1) Schizophrenia Assessment & Plan: Psychiatric assessment was really limited to the fact that the patient can barely talk and express herself. She does report depression and feeling very sad, but she nodded to questions of suicidal or homicidal ideation, visual and auditory hallucinations. Continue current psychotropics. Patient may need psychiatric admission for stabilization and medication adjustment. Might consider to transfer to the med psych unit. We will follow- up. ICD Code: F20.9 Assessment & Plan Estimated LOS: days Problem Qualifiers (1) Schizophrenia: Qualified Code: F20.9 - Schizophrenia, unspecified type Vinayak Faye MD Oct 19, 2016 15:33
[2016-10-20] VITALS (11 sets, daily range): BP systolic 122–145; BP diastolic 73–89; PULSE 70–123; RESP 15–19; TEMP 96.2–98.1; O2SAT 92–97
[2016-10-20] MEDS: SODIUM CHLOR 0.9% 1000 ML INJ 1,000 ML IV SCH ×2 (00:12→12:28)
[2016-10-20] MEDS: AZITHROMYCIN INJ 500 MG in SODIUM CHLOR 0.9% 250 ML INJ 250 ML IV SCH (00:21)
[2016-10-20] MEDS: INSULIN ASPART SUPPLEMENTAL SCALE SQ SCH ×4 (00:42→16:45)
[2016-10-20] MEDS: CEFEPIME INJ 2,000 MG in SODIUM CHLORIDE 0.9% INJ 100 ML IV SCH ×3 (01:37→16:38)
[2016-10-20] MEDS: RESP: ALBUTEROL 2.5 MG/IPRATROPIUM 0.5 MG NEB (SCH) NEB ×6 (04:14→23:25)
[2016-10-20] MEDS: CHLORHEXIDINE GLUCONATE 2 % 1 PACK (2 CLOTHS) TOP SCH (04:53)
[2016-10-20] MEDS: ENOXAPARIN SODIUM 40 MG/0.4 ML SYRINGE SQ SCH (04:53)
[2016-10-20] MEDS: methylPREDNISolone SOD SUCC 125 MG/2 ML VIAL IV SCH ×3 (04:53→21:59)
[2016-10-20] MEDS: CHLORHEXIDINE 0.12% (ORAL KIT) 15 ML CUP MT SCH ×2 (08:00→20:00)
[2016-10-20] MEDS: TIMOLOL MALEATE 0.5% OPHT SOLN 5 ML BTL EACH EYE SCH ×3 (08:35→16:38)
[2016-10-20] MEDS: SODIUM CHLORIDE 0.9% FLUSH 5 ML FLUSH IVF SCH ×2 (08:36→22:00)
[2016-10-20] MEDS: VALPROIC ACID SYRUP 250 MG/5 ML UDC PO SCH ×2 (08:36→21:59)
[2016-10-20] MEDS: LACTULOSE SYRUP 20 GM/30 ML CUP PO SCH ×3 (08:36→16:37)
[2016-10-20] MEDS: PANTOPRAZOLE SODIUM 40 MG VIAL IV SCH (08:36)
[2016-10-20] MEDS: METOPROLOL TARTRATE 25 MG TAB PO SCH ×2 (08:37→21:59)
[2016-10-20] MEDS: SODIUM CHLORIDE 1 GRAM TAB PO SCH (08:37)
[2016-10-20] MEDS: OXcarbazepine 300 MG TAB PO SCH ×2 (08:40→21:58)
[2016-10-20] MEDS: NICOTINE 7 MG/24 HR PATCH TD SCH ×2 (08:40→09:00)
[2016-10-20] MEDS: REMOVE OLD NICODERM (NICOTINE) PATCH TD SCH (09:00)
--- NOTE | 2016-10-20 15:10 | HHI.PR ---
Subjective Remarks Patient has normal voice No sore throat No trouble swallowing as per patient No neck pain No chest pain No abdominal pain No nausea vomiting Review of system for 10 point system otherwise unremarkable Objective Objective Results - Vital Signs Date Time Temp Pulse Resp B/P Pulse Ox O2 Delivery O2 Flow Rate FiO2 10/20/16 12:57 96 Nasal Cannula 2.00 10/20/16 09:33 97 Nasal Cannula 2.00 10/20/16 08:00 72 10/20/16 08:00 97.0 70 16 145/81 93 10/20/16 06:00 72 10/20/16 04:00 79 10/20/16 04:00 98.0 79 15 124/73 93 10/20/16 02:00 123 10/20/16 01:21 18 10/20/16 00:00 98.1 82 18 136/76 92 10/20/16 00:00 82 10/19/16 22:00 76 10/19/16 20:00 98.9 83 20 132/77 97 10/19/16 20:00 83 10/19/16 18:00 94 10/19/16 16:00 88 10/19/16 16:00 98.5 88 19 126/72 95 I/O 10/19/16 10/19/16 10/19/16 10/20/16 10/20/16 10/20/16 07:00 15:00 23:00 07:00 15:00 23:00 Intake Total 1550 ml 1680 ml 937 ml 968 ml Output Total 1200 ml 750 ml 400 ml 350 ml Balance 350 ml 930 ml 537 ml 618 ml Intake Oral 900 ml 840 ml 240 ml 240 ml IV Total 650 ml 840 ml 697 ml 728 ml Output Urine Total 1200 ml 750 ml 400 ml 350 ml # Bowel Movements 0 0 0 0 Result Diagram: 10/19/16 0416 10/19/16 0416 Imaging Last Impressions Head CT 10/17/16 0857 Signed Impressions: Service Date/Time: Monday, October 17, 2016 09:37 - CONCLUSION: Normal examination. Parrish Martinez MD Chest X-Ray 10/17/16 0000 Signed Impressions: Service Date/Time: Monday, October 17, 2016 01:04 - CONCLUSION: 1. Endotracheal tube and nasogastric tube positions as above. 2. No significant change perihilar and basilar consolidation on the left. Kt Vyas MD Other Results Laboratory Tests Test 10/19/16 16:57 Valproic Acid (Depakene) Level 62 Date/Time Procedure Status Source Growth 10/17/16 03:30 Gram Stain - Final Complete Sputum Endotracheal 10/17/16 03:30 Sputum Culture - Final Complete Haemophilus Influenzae 10/17/16 02:00 Legionella Antigen - Final Complete Urine Catheterized Urine PRESUMPTIVE NEGATIVE FOR LEGIONELLA P... 10/17/16 02:00 Streptococcus pneumoniae Antigen (M - Final Complete Urine Catheterized Urine PRESUMPTIVE NEGATIVE FOR STREPTOCOCCU... 10/16/16 10:28 Aerobic Blood Culture - Preliminary Resulted Blood Peripheral NO GROWTH IN 4 DAYS 10/16/16 10:28 Anaerobic Blood Culture - Preliminary Resulted Blood Peripheral NO GROWTH IN 4 DAYS Physical Exam Physical Exam GENERAL: This is a middle aged female, appears older than stated age. SKIN: No rashes, ecchymoses or lesions. Cool and dry. HEAD: Atraumatic. Normocephalic. No temporal or scalp tenderness. EYES: Pupils equal round and reactive. Extraocular motions intact. No scleral icterus. No injection or drainage. ENT: Throat without erythema, tonsillar hypertrophy or exudate. Uvula midline. Airway patent. Poor dentition noted, several teeth missing or broken. NECK: Trachea midline. No JVD or lymphadenopathy. Supple, nontender, no meningeal signs. CARDIOVASCULAR: Regular rate and rhythm without murmurs, gallops, or rubs. RESPIRATORY: Diminished at bases, no wheezing no Rals occasional rhonchi noted. GASTROINTESTINAL: Abdomen soft, non-tender, nondistended. No hepato-splenomegaly , or palpable masses. No guarding. MUSCULOSKELETAL: Extremities without clubbing, cyanosis, or edema. No joint tenderness, effusion, or edema noted. No calf tenderness. Negative Homans sign bilaterally. NEUROLOGICAL: Awake, oriented 2-3. No focal deficits. Speech is clear. Poor historian. PSYCHIATRIC: Flat affect. Denies suicidal ideation. No visual auditory hallucinations. A/P Assessment and Plan (1) Acute respiratory failure with hypoxia and hypercarbia (2) Pneumonia (3) Schizophrenia (4) COPD (chronic obstructive pulmonary disease) (5) Depression (6) Seizure disorder (7) Encephalopathy (8) Hyponatremia Plan 51-year-old female with history of COPD, admitted in respiratory distress that required intubation. Admitted for acute on chronic respiratory failure, found with pneumonia -Continue with DuoNeb's -Continue with oxygen to keep sats were 90% -Continue with empiric antibiotic, follow cultures showing Haemophilus influenzae on a sputum culture -Continue with IV steroids, will decrease dose Schizophrenia, initially indicated hearing voices -Continue with Prolixin Metabolic encephalopathy, improving, now seems like back to baseline -Continue lactulose -Ammonia level reviewed Tobacco abuse Counseled about tobacco abuse, Nicotine patch has been ordered Depression, verbalizes feeling very depressed, denies suicidal ideation Appreciate consultation by psychiatry Hyponatremia Continue with salt tabs -BMP in the morning Seizure disorder, stable Continue with home medications Continue Lovenox for DVT prophylaxis Protonix for GI prophylaxis Plan to transfer to med psych as recommended by psychiatrist Plan of care has been discussed with the patient and registered nurse. Further management of the patient will be dependent on the hospital course Yehuda Logan MD Oct 20, 2016 15:10
--- NOTE | 2016-10-20 18:58 | HHI.DS ---
Discharge Summary Admission Date Oct 17, 2016 at 00:46 Discharge Date: Oct 20, 2016 Admitting Diagnosis hypercarbic respiratory failure (1) Acute respiratory failure with hypoxia and hypercarbia (2) Pneumonia (3) Schizophrenia (4) COPD (chronic obstructive pulmonary disease) (5) Depression (6) Seizure disorder (7) Encephalopathy (8) Hyponatremia Brief History This was a 51-year-old female with significant past medical history of schizophrenia, COPD, tobacco abuse. She's had multiple admissions in the past for respiratory failure and require mechanical ventilation. Was recently admitted under services for hyponatremia. Patient was a resident at [facility]. CBC/BMP: 10/19/16 0416 10/19/16 0416 Significant Findings Laboratory Tests Test 10/18/16 10/18/16 10/19/16 05:01 10:00 04:16 Red Blood Count 3.53 MIL/MM3 3.44 MIL/MM3 (4.00-5.30) (4.00-5.30) Hematocrit 33.9 % 33.3 % (35.0-46.0) (35.0-46.0) Neutrophils (%) (Auto) 89.5 % 88.0 % (16.0-70.0) (16.0-70.0) Lymphocytes (%) (Auto) 6.3 % 8.1 % (9.0-44.0) (9.0-44.0) Lymphocytes # (Auto) 0.5 TH/MM3 0.8 TH/MM3 (1.0-4.8) (1.0-4.8) Sodium Level 133 MEQ/L 135 MEQ/L (136-145) (136-145) Random Glucose 132 MG/DL (74-106) Calcium Level 8.2 MG/DL 8.2 MG/DL (8.5-10.1) (8.5-10.1) Aspartate Amino Transf 5 U/L (15-37) 6 U/L (15-37) (AST/SGOT) Total Protein 5.8 GM/DL 5.6 GM/DL (6.4-8.2) (6.4-8.2) Albumin 2.8 GM/DL 2.6 GM/DL (3.4-5.0) (3.4-5.0) Arterial Blood pH 7.43 (7.380-7.420) Arterial Blood Partial 37 mmHg (38-42) Pressure CO2 Blood Gas Hemoglobin 11.7 G/DL (12.0-16.0) Mean Corpuscular Hemoglobin 34.6 PG (27.0-34.0) Neutrophils # (Auto) 8.2 TH/MM3 (1.8-7.7) Chloride Level 97 MEQ/L (98-107) Creatinine 0.48 MG/DL (0.50-1.00) Ammonia 37 MCMOL/L (11-32) Imaging Last Impressions Head CT 10/17/16 0857 Signed Impressions: Service Date/Time: Monday, October 17, 2016 09:37 - CONCLUSION: Normal examination. Parrish Martinez MD Chest X-Ray 10/17/16 0000 Signed Impressions: Service Date/Time: Monday, October 17, 2016 01:04 - CONCLUSION: 1. Endotracheal tube and nasogastric tube positions as above. 2. No significant change perihilar and basilar consolidation on the left. Kt Vyas MD PE at Discharge GENERAL: This is a middle aged female, appears older than stated age. SKIN: No rashes, ecchymoses or lesions. Cool and dry. HEAD: Atraumatic. Normocephalic. No temporal or scalp tenderness. EYES: Pupils equal round and reactive. Extraocular motions intact. No scleral icterus. No injection or drainage. ENT: Throat without erythema, tonsillar hypertrophy or exudate. Uvula midline. Airway patent. Poor dentition noted, several teeth missing or broken. NECK: Trachea midline. No JVD or lymphadenopathy. Supple, nontender, no meningeal signs. CARDIOVASCULAR: Regular rate and rhythm without murmurs, gallops, or rubs. RESPIRATORY: Diminished at bases, no wheezing no Rals occasional rhonchi noted. GASTROINTESTINAL: Abdomen soft, non-tender, nondistended. No hepato-splenomegaly , or palpable masses. No guarding. MUSCULOSKELETAL: Extremities without clubbing, cyanosis, or edema. No joint tenderness, effusion, or edema noted. No calf tenderness. Negative Homans sign bilaterally. NEUROLOGICAL: Awake, oriented 2-3. No focal deficits. Speech was clear. Poor historian. PSYCHIATRIC: Flat affect. Denies suicidal ideation. No visual auditory hallucinations. Hospital Course Patient presented to the emergency room on 10/16/2016 after she was found hypoxic, sats 70% on room air. She was placed on nonrebreather and her oxygen sats did improve to 99%. In the ER, pt. verbalized that she did not feel well and she was hearing voices and verbalized that she was suicidal. Patient went into worsening respiratory distress, BiPAP was tried initially, and subsequently she was intubated. Patient was admitted under critical care services. Chest x-ray showed left lower lobe infiltrate. Patient was on empiric antibiotics. Patient was extubated today, she is down to 4 L nasal cannula, sats 95%. She was awake, she knows she is in the hospital, knows the year. She was not sure why she was admitted, she thinks it was because of her schizophrenia. She denied any suicidal ideation but indicates that she was very depressed. Denies any visual or auditory hallucinations. Hospitalist services are requested to assume medical management. On admission ,Patient was treated with the following diagnosis for her plan of care. (1) Acute respiratory failure with hypoxia and hypercarbia (2) Pneumonia (3) Schizophrenia (4) COPD (chronic obstructive pulmonary disease) (5) Depression (6) Seizure disorder (7) Encephalopathy (8) Hyponatremia -Continue with DuoNeb's throughout hospital stay -Continue with oxygen to keep sats were 90%, after extubation patient was able to maintain sats without any difficulty -Continue with empiric antibiotic, follow cultures showing Haemophilus influenzae on a sputum culture -Continue with IV steroids, will decrease dose through her hospital stay, then DC Schizophrenia, initially indicated hearing voices -Continue with Prolixin Metabolic encephalopathy initially on admission, improving, now seems like back to baseline -Continue lactulose -Ammonia level reviewed and monitored Tobacco abuse Counseled about tobacco abuse, Nicotine patch was ordered Depression, verbalizes feeling very depressed, denies suicidal ideation Appreciate consultation by psychiatry Hyponatremia Continue with salt tabs -BMP in the morning Seizure disorder, stable Continue with home medications Continue Lovenox for DVT prophylaxis Protonix for GI prophylaxis Plan to transfer to [facility] as recommended by psychiatrist Plan of care has been discussed with the patient and registered nurse. Further management of the patient will be dependent on the hospital course. Patient was stabilized and discharged today Pt Condition on Discharge: Stable Discharge Disposition: Disc to Psych Care Fac Discharge Instructions DIET: Follow Instructions for: Heart Healthy Diet Activities you can perform: Regular-No Restrictions Continued Medications: Divalproex ER (Divalproex ER) 500 Mg Tab 500 MG PO DAILY IN THE AM Control Seizures #30 Ref 0 TAB Divalproex ER (Depakote ER) 500 Mg Mila 1000 MG PO HS Control Seizures #60 Ref 0 TAB Fluphenazine (Fluphenazine) 10 Mg Tab 10 MG PO BID Fluphenazine Decanoate Inj (Fluphenazine Decanoate Inj) 125 Mg/5 Ml Inj 25 MG IM EVERY 2 WEEKS #1 VIAL Fluticasone-Salmeterol Inh (Advair Diskus Inh) 250-50 Mcg/Blist Aer 1 PUFF INH BID Rinse mouth after use. #1 Ref 0 INHALER Lactulose Liq (Lactulose Liq) 10 Gm/15 Ml Soln 30 ML PO TID Ref 0 ML Metoprolol Tartrate (Metoprolol Tartrate) 25 Mg Tab 12.5 MG PO BID #60 Ref 0 TAB Oxcarbazepine (Oxcarbazepine) 300 Mg Tab 300 MG PO BID Seizure Control #60 Ref 0 TAB Sodium Chloride (Sodium Chloride) 1 Gm Tab 2 GM PO DAILY Electrolyte Replacement Ref 0 TAB Timolol Opth Drops (Timoptic Opth Drops) 0.5 % Soln 1 DROP EACH EYE TID Glaucoma #1 Ref 0 BOTTLE Additional Information Medical Psy floor,/facility Kirsten Tomas Oct 20, 2016 18:58
== END 2016-10-20 23:44 | disposition home or self-care (01) | DRG 208 ==
LOC: NEPC 21:53 → NEDA 10-17 00:46 → HIMN 10-17 03:20 → HOCB 10-20 10:06
PROVIDERS: ADMIT Internal Medicine Critical Care Medicine; ATTEND Internal Medicine Critical Care Medicine
PROC: 0BH17EZ Insertion of Endotracheal Airway into Trachea, Via Natural or Artificial Opening (ICD-10-PCS; principal; 2016-10-17)
PROC: 5A1945Z Respiratory Ventilation, 24-96 Consecutive Hours (ICD-10-PCS; 2016-10-17)
DX: J96.21 Acute and chronic respiratory failure with hypoxia (principal); G93.41 Metabolic encephalopathy; J18.9 Pneumonia, unspecified organism; E87.2 Acidosis; J44.0 Chronic obstructive pulmonary disease with (acute) lower respiratory infection; E87.1 Hypo-osmolality and hyponatremia; J96.22 Acute and chronic respiratory failure with hypercapnia; F20.9 Schizophrenia, unspecified; G40.909 Epilepsy, unspecified, not intractable, without status epilepticus; F32.9 Major depressive disorder, single episode, unspecified; F17.210 Nicotine dependence, cigarettes, uncomplicated; I10 Essential (primary) hypertension; W19.XXXA Unspecified fall, initial encounter; Y92.129 Unspecified place in nursing home as the place of occurrence of the external cause
CPT/HCPCS: 31500; 36600; 70450; 71010; 80053; 80164; 81001; 82140; 82550; 82805; 82948; 83605; 83735; 83880; 84100; 84484; 85025; 87040; 87070; 87077; 87184; 87185; 87205; 87449; 87641; 93005; 94002; 94003; 94640; 94664; 96374; C9113; C9399; J0330; J0456; J0692; J1650; J1815; J2930; J7030; J7050

== ENCOUNTER 2016-10-20 23:30 | Inpatient (IN) | payer MEDICARE, OTHER ==
[~2016-10-20] VITALS: Ht 172.7 cm; Wt 64.2 kg
[2016-10-20 23:30] VITALS: BP 155/91; PULSE 75; RESP 18; TEMP 97.5; O2SAT 89
[2016-10-21] MEDS ORDERED: ALUMINUM/MAGNESIUM/SIMETH 30 ML CUP PO PRN (02:00)
[2016-10-21] MEDS ORDERED: PILL SPLITTER OTHER PRN (02:00)
[2016-10-21] MEDS ORDERED: LORazepam 2 MG/ML VIAL IM PRN (02:00)
[2016-10-21] MEDS ORDERED: SODIUM CHLOR 0.9% 1000 ML INJ 1,000 ML IV SCH (02:00)
[2016-10-21] MEDS ORDERED: MAGNESIUM HYDROXIDE SUSP 30 ML CUP PO PRN (02:00)
[2016-10-21] MEDS: ACETAMINOPHEN 325 MG TAB PO PRN (04:29)
[2016-10-21 06:03] VITALS: BP 142/87; PULSE 99; RESP 17; TEMP 97.8; O2SAT 95
[2016-10-21 08:27] LABS: ANION GAP 6 MEQ/L (5-15); BICARBONATE 38.4 MEQ/L (21.0-32.0); BLOOD UREA NITROGEN 12 MG/DL (7-18); CHLORIDE 89 MEQ/L (98-107); GLOMERULAR FILTRATION RATE 154 ML/MIN (>89); LDL CHOLESTEROL 80 MG/DL (0-99); POTASSIUM 3.7 MEQ/L (3.5-5.1); SODIUM (NA) 133 MEQ/L (136-145)
[2016-10-21] MEDS: BUDESONIDE-FORMOTEROL 160/4.5 MCG INHALER INH SCH ×4 (08:31→21:03)
[2016-10-21] MEDS: OXcarbazepine 300 MG TAB PO SCH ×2 (08:43→20:51)
[2016-10-21] MEDS: SODIUM CHLORIDE 1 GRAM TAB PO SCH (08:43)
[2016-10-21] MEDS: NICOTINE 7 MG/24 HR PATCH T-DERMAL SCH (08:44)
[2016-10-21] MEDS: LACTULOSE SYRUP 20 GM/30 ML CUP PO SCH ×3 (08:44→18:00)
[2016-10-21] MEDS: TIMOLOL MALEATE 0.5% OPHT SOLN 5 ML BTL EACH EYE SCH ×3 (08:44→18:00)
[2016-10-21] MEDS: DIVALPROEX SODIUM E.R. 500 MG TAB PO SCH ×2 (08:44→20:52)
[2016-10-21] MEDS: METOPROLOL TARTRATE 25 MG TAB PO SCH ×2 (11:29→20:52)
[2016-10-21 14:00] VITALS: BP 169/97; PULSE 84; RESP 18; TEMP 97.4; O2SAT 91
[2016-10-21] MEDS ORDERED: SODIUM CHLORIDE 1 GRAM TAB PO SCH (14:30)
[2016-10-21] MEDS ORDERED: GLUCAGON 1 MG/ML VIAL OTHER PRN (14:30)
[2016-10-21] MEDS ORDERED: DEXTROSE 50% IN WATER 50 ML VIAL(D50) IV PUSH PRN (14:30)
--- NOTE | 2016-10-21 15:04 | HHI.HP ---
Provisional Diagnosis Admission Date Oct 20, 2016 at 23:30 [place] I. Schizophrenia Certification of Person's Competence To Provide Express and Informed Consent I have personally examined Libra Saucedo , a person being served at [facility] on, Oct 21, 2016 14:55. Express and informed consent means consent voluntarily given in writing, by a competent person, after sufficient explanation and disclosure of the subject matter involved to enable the person to make a knowing and willful decision without any element of force, fraud, deceit, duress, or other form of constraint or coercion. This person is 18 years of age or older, is not now known to be incompetent to consent to treatment with a guardian advocate, and does not have a health care surrogate or proxy currently making medical treatment decisions. I have found this person to be one of the following: [X] Competent to provide express and informed consent, as defined above, for voluntary admission to this facility and is competent to provide express and informed consent for treatment. He/she has the consistent capacity to make well reasoned, willful, and knowing decisions concerning his or her medical or mental health treatment. The person fully and consistently understands the purpose of the admission for examination/placement and is fully capable of personally exercising all rights assured under [place] Incompetent to provide express and informed consent to voluntary admission, and this is incompetent to provide express and informed consent to treatment. The person must be transferred to involuntary status and a petition for a guardian advocate filed with the Circuit Court. [] Refusing to provide express and informed consent to voluntary admission but is competent to provide express and informed consent for treatment. The person must be discharged or transferred to involuntary status. Form shall be completed within 24 hours of a person's arrival at the receiving facility and filed in the clinical record of each person: 1. Admitted on a voluntary basis 2. Permitted to provide express and informed consent to his/her own treatment 3. Allowed to transfer from involuntary to voluntary status 4. Prior to permitting a person to consent to his or her own treatment after having been previously found incompetent to consent to treatment. History of Present Illness Capacity: Has Capacity HPI The patient is a 51 years old woman, domiciled in a [facility] facility, with extensive psychiatric history of schizophrenia, multiple psychiatric hospitalizations, she is known by the psychiatric service, she was hospitalized in the [facility] units under the care of Dr. Bruce last July 2016, she has been treated with fluphenazine 10 mg twice a day and Depakote 1000 milligram twice a day, admitted in the hospital due to COPD exacerbation, she needed intubation. Patient was seen in the medical floor 2 days ago for psychiatric consultation due to depressive symptoms and psychotic admission was suggested. Patient was seen today for psychiatric evaluation, she is states that she feels a little bit better than 2 days ago when she was in the first time, but still sad, with very low level of energy, continuous sadness about her medical condition, poor concentration, low self esteem, generalized pessimism, but she denies suicidal or homicidal ideation, he denies visual and auditory hallucinations. Patient is fully oriented 3, no gross cognitive impairment observed, no delirious or confusion reported or observed. Review of Systems Constitutional: DENIES: Diaphoretic episodes, Fatigue, Fever, Weight gain, Weight loss, Chills, Dizziness, Change in appetite, Night Sweats Endocrine: DENIES: Abnorml menstrual pattern, Heat/cold intolerance, Polydipsia , Polyuria, Polyphagia Eyes: DENIES: Blurred vision, Diplopia, Eye inflammation, Eye pain, Vision loss , Photosensitivity, Double Vision Ears, nose, mouth, throat: DENIES: Tinnitus, Hearing loss, Vertigo, Nasal discharge, Oral lesions, Throat pain, Hoarseness, Ear Pain, Running Nose, Epistaxis, Sinus Pain, Toothache, Odynophagia Respiratory: DENIES: Apneas, Cough, Snoring, Wheezing, Hemoptysis, Sputum production, Shortness of breath Cardiovascular: DENIES: Chest pain, Palpitations, Syncope, Dyspnea on Exertion , PND, Lower Extremity Edema, Orthopnea, Claudication Genitourinary: DENIES: Abnormal vaginal bleeding, Dysmenorrhea, Dyspareunia, Sexual dysfunction, Urinary frequency, Urinary incontinence, Urgency, Hematuria , Dysuria, Nocturia, Vaginal discharge Musculoskeletal: DENIES: Joint pain, Muscle aches, Stiffness, Joint Swelling, Back pain, Neck pain Integumentary: DENIES: Abnormal pigmentation, Pruritus, Rash, Nail changes, Breast masses, Breast skin changes, Nipple discharge Hematologic/lymphatic: DENIES: Bruising, Lymphadenopathy Neurologic: DENIES: Abnormal gait, Headache, Localized weakness, Paresthesias, Seizures, Speech Problems, Tremor, Poor Balance Psychiatric: COMPLAINS OF: Depression, DENIES: Anxiety, Confusion, Mood changes, Hallucinations, Agitation, Suicidal Ideation, Homicidal Ideation, Delusions Substance Abuse History Drugs/Alcohol past 12 months She denies the use of alcohol and illicit drugs Past Family Social History Coded Allergies: Haldol (Verified Allergy, Unknown, 10/16/16) Reported Medications Metoprolol Tartrate 25 Mg Tab12.5 Mg PO BID #60 TAB Ref 0 10/15/16 Fluphenazine Decanoate Inj 125 Mg/5 Ml Inj25 Mg IM EVERY 2 WEEKS #1 VIAL 10/15/16 Divalproex ER (Depakote ER)500 Mg Taber1,000 Mg PO HS #60 TAB Ref 0 10/15/16 Timolol Opth Drops (Timoptic Opth Drops)0.5 % Soln1 Drop EACH EYE TID #1 BOTTLE Ref 0 10/15/16 Lactulose Liq 10 Gm/15 Ml Soln30 Ml PO TID Ref 0 10/15/16 Fluticasone-Salmeterol Inh (Advair Diskus Inh)250-50 Mcg/Blist Aer1 Puff INH BID #1 INHALER Ref 0 Rinse mouth after use. 10/15/16 Fluphenazine 10 Mg Tab10 Mg PO BID 10/15/16 Oxcarbazepine 300 Mg Sym333 Mg PO BID #60 TAB Ref 0 10/15/16 Divalproex ER 500 Mg [id number] Mg PO DAILY IN THE AM #30 TAB Ref 0 10/15/16 Sodium Chloride 1 Gm Tab2 Gm PO DAILY Ref 0 07/19/16 Discontinued Reported Medications Risperidone Inj (Risperdal Consta Inj)50 Mg Inj50 Mg IM Q14D #2 VIAL Ref 0 07/19/16 Fluphenazine 2.5 Mg Tab1 Tab PO BID 07/19/16 Fluticasone-Vilanterol Inh (Breo Ellipta Inh)100-25 Mcg/Act Inh1 Puff INH DAILY #1 INHALER Ref 0 Use daily at the same time. 07/19/16 Oxcarbazepine 150 Mg [id number] Mg PO BID #60 TAB Ref 0 07/19/16 Divalproex ER 250 Mg [id number] Mg PO DAILY #30 TAB Ref 0 07/19/16 Olanzapine 10 Mg Tab10 Mg PO HS #30 TAB Ref 0 11/13/16 Furosemide 20 Mg Tab20 Mg PO DAILY #30 TAB Ref 0 07/19/16 Dorzolamide-Timolol Opth Drops (Cosopt Opth Drops)22.3-6.8 Mg/Ml Soln1 Drop EACH EYE TID #1 BOTTLE Ref 0 07/19/16 Benztropine 2 Mg Tab2 Mg PO BID #60 TAB Ref 0 07/19/16 Cholecalciferol (D3 Super Strength)2,000 Unit Cap1,000 Units PO DAILY #30 CAP Ref 0 07/19/16 Bupropion HCl 100 Mg [id number] Mg PO DAILY Ref 0 07/19/16 Albuterol 8.5 GM Inh (Proair Hfa 8.5 GM Inh)90 Mcg/Act Aer1 Puff INH Q6HR PRN ( SHORTNESS OF BREATH) #1 INHALER Ref 0 108 mcg/actuation 07/19/16 Current Medications Medications (Trade) Dose Ordered Sig/Sae Route Start Time Stop Time Status Last Admin (Ativan) 1 mg Q6H PRN PO 10/21/16 02:00 (Ativan Inj) 1 mg Q6H PRN IM 10/21/16 02:00 (Tylenol) 650 mg Q4H PRN PO 10/21/16 02:00 10/21/16 04:29 (Milk Of Magnesia Liq) 30 ml DAILY PRN PO 10/21/16 02:00 (Mag-Al Plus Susp Liq) 30 ml Q6H PRN PO 10/21/16 02:00 (Habitrol 7 Mg Patch.24 Hr) 1 patch DAILY T-DERMAL 10/21/16 09:00 Miscellaneous Information 1 1 HS T-DERMAL 10/21/16 21:00 (NS 1000 ml Inj) 1,000 ml @ 75 mls/hr [id number] IV 10/21/16 02:00 10/21/16 02:35 (Depakote Er) 500 mg DAILY PO 10/21/16 09:00 10/21/16 08:44 (Depakote Er) 1,000 mg HS PO 10/21/16 21:00 (Symbicort 160-4.5 Inh) 2 puff BID INH 10/21/16 09:00 10/21/16 08:31 (Lactulose Liq) 30 ml TID PO 10/21/16 09:00 10/21/16 12:48 (Lopressor) 12.5 mg BID PO 10/21/16 09:00 10/21/16 11:29 (Trileptal) 300 mg BID PO 10/21/16 09:00 10/21/16 08:43 (Sodium Chloride) 2 gm DAILY PO 10/21/16 09:00 10/21/16 08:43 (Timoptic 0.5% Opth Soln) 1 drop TID EACH EYE 10/21/16 09:00 10/21/16 12:46 (Pill Splitter) 1 ea UNSCH PRN OTHER 10/21/16 02:00 (Ceftin) 500 mg Q12H PO 10/21/16 15:00 10/27/16 14:59 (Zithromax) 500 mg Q24H PO 10/21/16 15:00 10/25/16 14:59 (Deltasone) 50 mg DAILY PO 10/21/16 14:15 (Protonix) 40 mg DAILY PO 10/21/16 14:15 (Symbicort 160-4.5 Inh) 2 puff BID INH 10/21/16 14:30 (D50w (Vial) Inj) 25 ml UNSCH PRN IV PUSH 10/21/16 14:30 (Glucagon Inj) 1 mg UNSCH PRN OTHER 10/21/16 14:30 Social History Patient lives [facility], she is single, poor social and family support. Physical Exam Vital Signs Vital Signs Date Time Temp Pulse Resp B/P Pulse Ox O2 Delivery O2 Flow Rate FiO2 10/21/16 14:00 97.4 84 18 169/97 91 Mental Status Examination Appearance woman, appears older than his stated age, [facility], good hygiene, she is calm and cooperative Speech: Unremarkable Orientation: x3 Memory: Unremarkable Thought Process: Logical Thought Content: Unremarkable Hallucination Type: None Suicidal Ideation: No Previous Suicide Attempts: No Homicidal Ideation: No Previous Homicide Attempts: No Judgement: WNL Affect: Sad Mood: Sad Motor Activity: Normal gait Assessment & Plan Problem List: (1) schizophrenia Assessment & Plan: The patient is a 51 years old woman, domiciled in a [facility] facility, with extensive psychiatric history of schizophrenia, multiple psychiatric hospitalizations, she is known by the psychiatric service, she was hospitalized in the [facility] units under the care of Dr. Bruce last July 2016 , she has been treated with fluphenazine 10 mg twice a day and Depakote 1000 milligram twice a day, admitted in the hospital due to COPD exacerbation, she needed intubation. Today on psychiatric admission patient was evaluated, she continues endorsing depressive symptoms consistent on low level of energy, continuous sadness, poor appetite, generalized pessimism, low self esteem, decreased need for sleep, constant worries about medical illnesses, but she denies suicidal or homicidal ideation. She denies visual and auditory hallucinations. No acute psychotic symptoms elicited, reported or observed. Patient will be hold on psychiatric admission with close medical follow-up for safety and stabilization of depression. Will continue current dose of Depakote. Will add trazodone 100 mg at bedtime to help with depression and sleep. precision layout worker intervention to complete psychosocial assessment, for psychotherapy, and to start discharge planning. Will consult hospitalist to continue medical follow-up. Patient agreed to consent for voluntary psychiatric admission. Assessment & Plan Estimated LOS: Vinayak Lane MD Oct 21, 2016 15:04
[2016-10-21] MEDS: LORazepam 1 MG TAB PO PRN ×2 (15:45→21:15)
[2016-10-21] MEDS: INSULIN ASPART SUPPLEMENTAL SCALE SQ SCH ×2 (16:00→20:40)
[2016-10-21 16:26] VITALS: BP 168/97; PULSE 96; RESP 17; TEMP 98.1; O2SAT 92
--- NOTE | 2016-10-21 16:48 | MB ---
cc: SEBASTIEN LOGAN FERNANDO B. MD PATEL, KASHYAP M.D. DATE OF CONSULTATION: 10/21/2016 REASON FOR CONSULTATION Assist in medical management. HISTORY OF PRESENT ILLNESS The patient is a pleasant 51-year-old female who is known to me from past admission. The patient has a significant past medical history of schizophrenia, COPD, tobacco abuse and chronic hyponatremia for which she is on a potassium pill as well. The patient was admitted the last time in the hospital because of respiratory failure requiring mechanical ventilation. The patient was in the intensive care unit. The patient was stabilized and extubated and transferred to the floor. The patient was found to have pneumonia and COPD exacerbation. She was kept on antibiotic as well as steroid. She was improving. She was continued on her home medication. Yesterday she was discharged to the med psych unit as she was stable and accepted by the psychiatrist. The patient is seen today in her room. She is having some shortness of breath and wheezing. She denies any fever or chills, has no other associated symptoms. The patient was seen with the RN at the bedside. PAST MEDICAL HISTORY 1. Anxiety. 2. Depression. 3. Schizophrenia. 4. COPD. 5. Tobacco abuse. 6. Migraine headaches. 7. History of hyponatremia. 8. Anemia. 9. Seizure disorder. PAST SURGICAL HISTORY Previous right cataract surgery. REVIEW OF SYSTEMS As described above in the history of present illness, otherwise negative for 10 systems. SOCIAL HISTORY The patient smokes, lives in a facility. FAMILY HISTORY Noncontributory. Reviewed from old records. MEDICATIONS Medications reviewed; please see EMR. ALLERGIES HALDOL. PHYSICAL EXAMINATION GENERAL: The patient is awake and alert, lying on the bed without any apparent distress. VITAL SIGNS: The patient is afebrile. Pulse 84, respiratory rate 18, blood pressure 169/97, pulse ox 91% on room air. HEENT: Head is atraumatic, normocephalic. Negative conjunctival injection. No icterus. Mouth unremarkable. NECK: Supple. No increased JVD. Central trachea. CHEST: Decreased air entry bibasilar with occasional scattered wheeze. No rhonchi noted. CARDIOVASCULAR: S1 and S2 audible. Unable to hear any S3 gallop. ABDOMEN: Soft, nontender, no organomegaly. Positive bowel sounds. EXTREMITIES: No cyanosis or pedal edema appreciated. PROJECTION PRINTER: Alert and oriented, seems to be 2-3. No focal deficit. Speech is clear. SKIN: Warm and moist. PSYCHIATRIC: Flat affect. INVESTIGATIONS CBC done on 10/19/2016: WBC, hemoglobin and platelet count within normal limits. Sodium today is 133, chloride 89, CO2 38.4, within normal BUN and creatinine, random glucose 143. Chest x-ray was done on 10/17/2016 showing endotracheal tube and nasogastric tube in good position. No significant change. Basilar consolidation on the left. Head CT was done on 10/17/2016 and shows normal examination. ASSESSMENT 1. Schizophrenia. 2. Depression. 3. Anxiety. 4. Pneumonia, improving. 5. COPD exacerbation, improving. 6. Seizure disorder. 7. Hyponatremia. RECOMMENDATIONS 1. Continue psych medications as per psychiatrist. 2. p.o. antibiotic. 3. Breathing treatments. 4. p.o. steroid. 5. Encourage p.o. intake. 6. Continue seizure medication as ordered. 7. Increase activity. 8. See orders. Discussed with the patient. Discussed with RN on the floor. Discussed with psychiatrist. Further recommendations to follow as per the patient's progress. Thank you Dr. Faye for the consult. Will follow with you. Sebastien Logan MD JP/DEMARCUS /4:12 PM /4:23 PM
[2016-10-21] MEDS: RESP: ALBUTEROL 2.5 MG/IPRATROPIUM 0.5 MG NEB (SCH) NEB ×2 (17:30→22:49)
[2016-10-21 17:34] VITALS: O2SAT 92
[2016-10-21] MEDS ORDERED: TIMOLOL MALEATE 0.5% OPHT SOLN 5 ML BTL EACH EYE SCH (18:00)
[2016-10-21 18:19] LABS: HEMOGLOBIN A1b 1.7 %; HEMOGLOBIN Ao 85.4 %; HEMOGLOBIN LA1C 2.2 %; HEMOGLOBIN P3 4.1 %
[2016-10-21] MEDS: AZITHROMYCIN 250 MG TAB PO SCH (18:24)
[2016-10-21] MEDS: PANTOPRAZOLE SOD 40 MG DELAYED RELEASE TAB PO SCH (18:24)
[2016-10-21] MEDS: CEFUROXIME AXETIL 500 MG TAB PO SCH (18:25)
[2016-10-21] MEDS: predniSONE 50 MG TAB PO SCH (18:26)
[2016-10-21 18:35] VITALS: BP 168/97; PULSE 96; RESP 17; TEMP 98.1; O2SAT 92
[2016-10-21] MEDS: REMOVE OLD NICOTINE PATCH T-DERMAL SCH (21:00)
[2016-10-22] MEDS ORDERED: ZIPRASIDONE MESYLATE 20 MG VIAL IM ONE (01:15)
[2016-10-22] MEDS: CEFUROXIME AXETIL 500 MG TAB PO SCH ×3 (02:25→15:48)
[2016-10-22] MEDS: RESP: ALBUTEROL 2.5 MG/IPRATROPIUM 0.5 MG NEB (SCH) NEB ×4 (02:32→21:33)
[2016-10-22 06:04] VITALS: BP 176/108; PULSE 83; RESP 16; TEMP 98.6; O2SAT 92
[2016-10-22] MEDS: INSULIN ASPART SUPPLEMENTAL SCALE SQ SCH ×4 (06:07→20:36)
[2016-10-22 06:33] VITALS: BP 125/79
[2016-10-22 09:00] VITALS: O2SAT 85
[2016-10-22] MEDS: BUDESONIDE-FORMOTEROL 160/4.5 MCG INHALER INH SCH ×4 (09:00→20:49)
[2016-10-22] MEDS: TIMOLOL MALEATE 0.5% OPHT SOLN 5 ML BTL EACH EYE SCH ×3 (09:17→18:00)
[2016-10-22] MEDS: predniSONE 50 MG TAB PO SCH (09:19)
[2016-10-22] MEDS: DIVALPROEX SODIUM E.R. 500 MG TAB PO SCH ×2 (09:23→20:47)
[2016-10-22] MEDS: LACTULOSE SYRUP 20 GM/30 ML CUP PO SCH ×3 (09:23→20:47)
[2016-10-22] MEDS: PANTOPRAZOLE SOD 40 MG DELAYED RELEASE TAB PO SCH (09:24)
[2016-10-22] MEDS: OXcarbazepine 300 MG TAB PO SCH ×2 (09:24→20:47)
[2016-10-22] MEDS: SODIUM CHLORIDE 1 GRAM TAB PO SCH (09:24)
[2016-10-22] MEDS: METOPROLOL TARTRATE 25 MG TAB PO SCH ×2 (09:24→20:47)
[2016-10-22] MEDS: NICOTINE 7 MG/24 HR PATCH T-DERMAL SCH (09:29)
--- NOTE | 2016-10-22 10:50 | HHI.PYPN ---
Subjective Remarks Patient was seen today for psychiatric reevaluation, she was deeply asleep, sedated, poorly participating in the interview, she opened her eyes and immediately fall sleep, however she denies suicidal or homicidal ideation, she denies visual and auditory hallucination at this moment. As per nursing report the patient last night became increasingly agitated, internally preoccupied, and she was endorsing visual hallucinations. Patient was medicated with a stat IM antipsychotics to help her to calm down. Review of Systems Other No somatic complaints Objective Alert: Yes [place]: Person, Place Mood: Calm Affect: Restricted Memory Intact: Immediate Hallucinations: Other (she denies) Delusions: No Delusion Type: Other (no delusions observed) Suicidal: Ideation (she denies) Homicidal: Ideation (she denies) Insight/Judgement Poor Vitals/IOs Vital Signs Date Time Temp Pulse Resp B/P Pulse Ox O2 Delivery O2 Flow Rate FiO2 10/22/16 09:00 85 21 10/22/16 06:33 125/79 10/22/16 06:04 98.6 83 16 10/21/16 22:34 Nasal Cannula 2.00 Intake and Output 10/21/16 10/21/16 10/22/16 08:00 16:00 00:00 Intake Total 960 ml 480 ml 1080 ml Output Total 1840 ml 900 ml Balance -880 ml -420 ml 1080 ml Assessment & Plan Problem List: (1) schizophrenia Assessment & Plan: Patient had an episode of psychosis last night, she was medicated with IM antipsychotics staff, this isolated episode could be secondary to delirium may be related with hyponatremia. We'll start Seroquel 50 mg at bedtime to help to sleep and with psychosis. Assessment & Plan Estimated LOS: days Justification for Cont. Inpt. Patient poses a very high risk to decompensate out of the psychiatric unit, she needs more psychiatric stabilization Vinayak Faye MD Oct 22, 2016 10:50
[2016-10-22] MEDS: AZITHROMYCIN 250 MG TAB PO SCH (15:48)
[2016-10-22 15:59] LABS: BICARBONATE 39.7 MEQ/L (21.0-32.0); POTASSIUM 4.1 MEQ/L (3.5-5.1)
--- NOTE | 2016-10-22 16:46 | HHI.PR ---
Subjective Remarks Patient is drowsy and arousable. Assess question Seems like oriented 2 Not answer questions "back to sleep. Not in any apparent distress Review of system for 10 point system otherwise unremarkable As per RN has no bowel movement Objective Objective Results - Vital Signs Date Time Temp Pulse Resp B/P Pulse Ox O2 Delivery O2 Flow Rate FiO2 10/22/16 09:00 85 21 10/22/16 06:33 125/79 10/22/16 06:04 98.6 83 16 176/108 92 10/21/16 22:34 Nasal Cannula 2.00 10/21/16 18:35 98.1 96 17 168/97 92 10/21/16 17:34 92 Nasal Cannula 2.00 I/O 10/21/16 10/21/16 10/21/16 10/22/16 10/22/16 10/22/16 07:00 15:00 23:00 07:00 15:00 23:00 Intake Total 960 ml 480 ml 1080 ml 660 ml Output Total 1840 ml 900 ml Balance -880 ml -420 ml 1080 ml 660 ml Intake Oral 960 ml 480 ml 1080 ml 660 ml Output Urine Total 1840 ml 900 ml # Voids 3 5 3 # Bowel Movements 0 2 1 Result Diagram: 10/22/16 1536 Other Results Laboratory Tests Test 10/22/16 15:36 Sodium Level 134 Potassium Level 4.1 Chloride Level 91 Carbon Dioxide Level 39.7 Anion Gap 3 Blood Urea Nitrogen 12 Creatinine 0.66 Estimat Glomerular Filtration 94 Rate Random Glucose 190 Calcium Level 8.1 Ammonia 72 Physical Exam Physical Exam GENERAL: The patient is drowsy but arousable answers questions and goes back to sleep, lying on the bed without any apparent distress. VITAL SIGNS: Reviewed HEENT: Head is atraumatic, normocephalic. Negative conjunctival injection. No icterus. Mouth unremarkable. NECK: Supple. No increased JVD. Central trachea. CHEST: Decreased air entry bibasilar. No rhonchi noted. CARDIOVASCULAR: S1 and S2 audible. Unable to hear any S3 gallop. ABDOMEN: Soft, nontender, no organomegaly. Positive bowel sounds. EXTREMITIES: No cyanosis or pedal edema appreciated. TOOL DESIGN DRAFTSPERSON: Drowsy but arousable oriented, seems to be 2. No focal deficit. Speech is clear. A/P Assessment and Plan 1. Schizophrenia. 2. Depression. 3. Anxiety. 4. Pneumonia, improving. 5. COPD exacerbation, improving. 6. Seizure disorder. 7. Hyponatremia. RECOMMENDATIONS 1. Continue psych medications as per psychiatrist. 2. p.o. antibiotic. 3. Breathing treatments. 4. p.o. steroid. 5. Encourage p.o. intake. 6. Continue seizure medication as ordered. 7. Increase activity. 8. Labs ordered and reviewed. 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 On lactulose will increase dose. Plan for lactulose enema today. All these discussed with RN. Plan for labs in the morning including ammonia level. Discussed with RN on the floor. Further recommendations to follow as per the patient's progress. Yehuda Logan MD Oct 22, 2016 16:46
[2016-10-22] MEDS ORDERED: LACTULOSE LIQ 300 ML in WATER STERILE FOR IRR BTL 700 ML RECTAL ONE (17:00)
[2016-10-22 18:16] VITALS: BP 124/70; PULSE 113; RESP 16; TEMP 97.7; O2SAT 92
[2016-10-22] MEDS: QUEtiapine FUMARATE 25 MG TAB PO SCH (20:48)
[2016-10-22] MEDS: REMOVE OLD NICOTINE PATCH T-DERMAL SCH (20:50)
[2016-10-23] MEDS: CEFUROXIME AXETIL 500 MG TAB PO SCH ×2 (03:00→15:22)
[2016-10-23] MEDS: RESP: ALBUTEROL 2.5 MG/IPRATROPIUM 0.5 MG NEB (SCH) NEB ×4 (03:29→20:03)
[2016-10-23 05:57] VITALS: BP 136/80; PULSE 90; RESP 18; TEMP 97.5; O2SAT 93
[2016-10-23] MEDS: INSULIN ASPART SUPPLEMENTAL SCALE SQ SCH ×4 (06:02→20:45)
[2016-10-23] MEDS: LACTULOSE SYRUP 20 GM/30 ML CUP PO SCH ×4 (08:08→20:49)
[2016-10-23] MEDS: OXcarbazepine 300 MG TAB PO SCH ×2 (08:09→20:45)
[2016-10-23] MEDS: PANTOPRAZOLE SOD 40 MG DELAYED RELEASE TAB PO SCH (08:09)
[2016-10-23] MEDS: predniSONE 50 MG TAB PO SCH (08:10)
[2016-10-23] MEDS: DIVALPROEX SODIUM E.R. 500 MG TAB PO SCH ×2 (08:10→20:44)
[2016-10-23] MEDS: TIMOLOL MALEATE 0.5% OPHT SOLN 5 ML BTL EACH EYE SCH ×3 (08:14→17:49)
[2016-10-23] MEDS: BUDESONIDE-FORMOTEROL 160/4.5 MCG INHALER INH SCH ×3 (08:14→20:49)
[2016-10-23] MEDS: METOPROLOL TARTRATE 25 MG TAB PO SCH ×2 (08:15→20:44)
[2016-10-23] MEDS: NICOTINE 7 MG/24 HR PATCH T-DERMAL SCH ×2 (08:16→09:00)
[2016-10-23] MEDS: SODIUM CHLORIDE 1 GRAM TAB PO SCH (08:19)
[2016-10-23 08:37] VITALS: O2SAT 100
[2016-10-23] MEDS ORDERED: RESP: ALBUTEROL 2.5 MG/IPRATROPIUM 0.5 MG NEB (PRN) NEB (10:00)
[2016-10-23 10:11] LABS: AUTOMATED NEUTROPHIL # 5.2 TH/MM3 (1.8-7.7); BASOPHIL % 0.1 % (0.0-2.0); EOSINOPHIL # 0.1 TH/MM3 (0-0.4); EOSINOPHIL % 1.1 % (0.0-4.0); HEMATOCRIT 35.7 % (35.0-46.0); HEMO FLAGS DIFF FINAL; LYMPH % 22.4 % (9.0-44.0); LYMPHOCYTE # 1.7 TH/MM3 (1.0-4.8); MEAN CELL VOLUME 98.5 FL (80.0-100.0); MEAN CORPUSCULAR HEMOGLOBIN 33.4 PG (27.0-34.0); MONO % 6.9 % (0.0-8.0); NEUT % 69.5 % (16.0-70.0); PLATELET COUNT 222 TH/MM3 (150-450); RED BLOOD COUNT 3.63 MIL/MM3 (4.00-5.30); RED CELL DISTRIBUTION WIDTH 13.4 % (11.6-17.2); WHITE BLOOD COUNT 7.4 TH/MM3 (4.0-11.0)
[2016-10-23 10:36] LABS: BICARBONATE 41.5 MEQ/L (21.0-32.0); POTASSIUM 3.3 MEQ/L (3.5-5.1)
--- NOTE | 2016-10-23 12:57 | HHI.PYPN ---
Subjective Remarks Patient was seen today for psychiatric reevaluation with nurse in charge. Patient was found calm and cooperative, she is states that everything is fine with her today, however she feels "too sleepy all the time", however she denies depressive symptoms, she denies anxiety, she denies suicidal or homicidal ideation, she denies visual and auditory hallucinations. No episodes of delirium, agitation, disorganized or bizarre behavior has been observed or reported today, patient is fully compliant with medications. She is oriented 3. Objective Alert: Yes [place]: Person, Place, Date Mood: Calm Affect: Restricted Memory Intact: Immediate, Recent, Remote Hallucinations: Other (she denies) Delusions: No Delusion Type: Other (no delusions observed) Suicidal: Ideation (she denies) Homicidal: Ideation (she denies) Insight/Judgement fair Labs Test 10/22/16 10/23/16 15:36 09:37 Sodium Level 134 MEQ/L 137 MEQ/L Potassium Level 4.1 MEQ/L 3.3 MEQ/L Chloride Level 91 MEQ/L 93 MEQ/L Carbon Dioxide Level 39.7 MEQ/L 41.5 MEQ/L Anion Gap 3 MEQ/L 3 MEQ/L Blood Urea Nitrogen 12 MG/DL 11 MG/DL Creatinine 0.66 MG/DL 0.49 MG/DL Estimat Glomerular Filtration 94 ML/MIN 132 ML/MIN Rate Random Glucose 190 MG/DL 119 MG/DL Calcium Level 8.1 MG/DL 8.1 MG/DL Ammonia 72 MCMOL/L 67 MCMOL/L White Blood Count 7.4 TH/MM3 Red Blood Count 3.63 MIL/MM3 Hemoglobin 12.1 GM/DL Hematocrit 35.7 % Mean Corpuscular Volume 98.5 FL Mean Corpuscular Hemoglobin 33.4 PG Mean Corpuscular Hemoglobin 34.0 % Concent Red Cell Distribution Width 13.4 % Platelet Count 222 TH/MM3 Mean Platelet Volume 8.5 FL Neutrophils (%) (Auto) 69.5 % Lymphocytes (%) (Auto) 22.4 % Monocytes (%) (Auto) 6.9 % Eosinophils (%) (Auto) 1.1 % Basophils (%) (Auto) 0.1 % Neutrophils # (Auto) 5.2 TH/MM3 Lymphocytes # (Auto) 1.7 TH/MM3 Monocytes # (Auto) 0.5 TH/MM3 Eosinophils # (Auto) 0.1 TH/MM3 Basophils # (Auto) 0.0 TH/MM3 CBC Comment DIFF FINAL Differential Comment Vitals/IOs Vital Signs Date Time Temp Pulse Resp B/P Pulse Ox O2 Delivery O2 Flow Rate FiO2 10/23/16 08:37 100 Nasal Cannula 1.00 10/23/16 05:57 97.5 90 18 136/80 10/22/16 09:00 21 Intake and Output 10/22/16 10/22/16 10/23/16 08:00 16:00 00:00 Intake Total 660 ml 940 ml Output Total 500 ml Balance 660 ml 440 ml Assessment & Plan Problem List: (1) schizophrenia Assessment & Plan: Today patient shows improvement in her thought processes, behavior and mood. She shows good response to psychotropic, however she reports day sedation. By review labs increased ammonia is noted. Will decrease Depakote to 500 mg twice a day, will order Depakote levels. onyx chip terrazzo worker intervention to restart discharge planning. Assessment & Plan Estimated LOS: days Justification for Cont. Inpt. Patient is still need to continue in the psychiatric admission for stabilization , she would decompensate if she is discharged back to the community. Vinayak Faye MD Oct 23, 2016 12:57
--- NOTE | 2016-10-23 13:35 | HHI.PR ---
Subjective Remarks Patient is alert awake and oriented Not in any apparent distress had Bm as per rn some dec in saturation sometime Review of system for 10 point system otherwise unremarkable Objective Objective Results - Vital Signs Date Time Temp Pulse Resp B/P Pulse Ox O2 Delivery O2 Flow Rate FiO2 10/23/16 08:37 100 Nasal Cannula 1.00 10/23/16 05:57 97.5 90 18 136/80 93 10/22/16 21:20 Nasal Cannula 2.00 10/22/16 19:39 92 Nasal Cannula 2.00 10/22/16 18:16 97.7 113 16 124/70 92 10/22/16 17:17 93 Nasal Cannula 2.00 I/O 10/22/16 10/22/16 10/22/16 10/23/16 10/23/16 10/23/16 07:00 15:00 23:00 07:00 15:00 23:00 Intake Total 660 ml 940 ml 200 ml 720 ml Output Total 500 ml Balance 660 ml 440 ml 200 ml 720 ml Intake Oral 660 ml 940 ml 200 ml 720 ml Stool Total 500 ml # Voids 5 6 # Bowel Movements 2 Result Diagram: 10/23/1637 10/23/1637 Other Results Laboratory Tests Test 10/22/16 10/23/16 15:36 09:37 Sodium Level 134 137 Potassium Level 4.1 3.3 Chloride Level 91 93 Carbon Dioxide Level 39.7 41.5 Anion Gap 3 3 Blood Urea Nitrogen 12 11 Creatinine 0.66 0.49 Estimat Glomerular Filtration 94 132 Rate Random Glucose 190 119 Calcium Level 8.1 8.1 Ammonia 72 67 White Blood Count 7.4 Red Blood Count 3.63 Hemoglobin 12.1 Hematocrit 35.7 Mean Corpuscular Volume 98.5 Mean Corpuscular Hemoglobin 33.4 Mean Corpuscular Hemoglobin 34.0 Concent Red Cell Distribution Width 13.4 Platelet Count 222 Mean Platelet Volume 8.5 Neutrophils (%) (Auto) 69.5 Lymphocytes (%) (Auto) 22.4 Monocytes (%) (Auto) 6.9 Eosinophils (%) (Auto) 1.1 Basophils (%) (Auto) 0.1 Neutrophils # (Auto) 5.2 Lymphocytes # (Auto) 1.7 Monocytes # (Auto) 0.5 Eosinophils # (Auto) 0.1 Basophils # (Auto) 0.0 CBC Comment DIFF FINAL Differential Comment Physical Exam Physical Exam GENERAL: The patient is Ax O x 3 without any apparent distress. VITAL SIGNS: Reviewed HEENT: Head is atraumatic, normocephalic. Negative conjunctival injection. No icterus. Mouth unremarkable. NECK: Supple. No increased JVD. Central trachea. CHEST: Decreased air entry bibasilar. No rhonchi noted. occ wheez bibasily CARDIOVASCULAR: S1 and S2 audible. Unable to hear any S3 gallop. ABDOMEN: Soft, nontender, no organomegaly. Positive bowel sounds. EXTREMITIES: No cyanosis or pedal edema appreciated. 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 Speech is clear. A/P Assessment and Plan 1. Schizophrenia. 2. Depression. 3. Anxiety. 4. Pneumonia, improving. 5. COPD exacerbation, improving. 6. Seizure disorder. 7. Hyponatremia. RECOMMENDATIONS 1. Continue psych medications as per psychiatrist. 2. p.o. antibiotic. 3. Breathing treatments. and on needed basis oxygen 4. p.o. steroid. 5. Encourage p.o. intake. 6. Continue seizure medication as ordered. 7. Increase activity. 8. Labs ordered and reviewed. Patient had metabolic encphalopathy secondary to increase ammonia, improving better. On lactulose. s/p lactulose enema today. discussed with RN. Plan for labs in the morning including ammonia level. Discussed with RN on the floor. Further recommendations to follow as per the patient's progress. Yehuda Logan MD Oct 23, 2016 13:35
[2016-10-23] MEDS ORDERED: POTASSIUM CHLORIDE 10 MEQ CONTROLLED RELEASE TAB PO ONE (14:00)
[2016-10-23] MEDS: AZITHROMYCIN 250 MG TAB PO SCH (15:22)
[2016-10-23 17:37] VITALS: BP 142/70; PULSE 81; RESP 18; TEMP 97.5; O2SAT 89; O2SAT 99
[2016-10-23] MEDS: QUEtiapine FUMARATE 25 MG TAB PO SCH (20:44)
[2016-10-23] MEDS: REMOVE OLD NICOTINE PATCH T-DERMAL SCH (20:49)
[2016-10-24] MEDS: RESP: ALBUTEROL 2.5 MG/IPRATROPIUM 0.5 MG NEB (SCH) NEB ×4 (02:46→20:55)
[2016-10-24] MEDS: CEFUROXIME AXETIL 500 MG TAB PO SCH ×2 (03:00→14:56)
[2016-10-24 05:53] VITALS: BP 143/90; PULSE 81; RESP 14; TEMP 98; O2SAT 95
[2016-10-24] MEDS: INSULIN ASPART SUPPLEMENTAL SCALE SQ SCH ×4 (06:01→21:00)
[2016-10-24 08:38] VITALS: O2SAT 96
[2016-10-24] MEDS: NICOTINE 7 MG/24 HR PATCH T-DERMAL SCH (09:00)
[2016-10-24] MEDS: TIMOLOL MALEATE 0.5% OPHT SOLN 5 ML BTL EACH EYE SCH ×3 (09:00→18:00)
[2016-10-24] MEDS: BUDESONIDE-FORMOTEROL 160/4.5 MCG INHALER INH SCH ×2 (09:00→21:00)
[2016-10-24] MEDS: DIVALPROEX SODIUM E.R. 500 MG TAB PO SCH ×2 (09:20→21:06)
[2016-10-24] MEDS: PANTOPRAZOLE SOD 40 MG DELAYED RELEASE TAB PO SCH (09:20)
[2016-10-24] MEDS: OXcarbazepine 300 MG TAB PO SCH ×2 (09:21→21:07)
[2016-10-24] MEDS: SODIUM CHLORIDE 1 GRAM TAB PO SCH (09:21)
[2016-10-24] MEDS: METOPROLOL TARTRATE 25 MG TAB PO SCH ×2 (09:21→21:07)
[2016-10-24] MEDS: predniSONE 50 MG TAB PO SCH (09:21)
[2016-10-24] MEDS: LACTULOSE SYRUP 20 GM/30 ML CUP PO SCH ×4 (09:49→21:06)
[2016-10-24 10:39] LABS: BICARBONATE 43.5 MEQ/L (21.0-32.0); POTASSIUM 3.8 MEQ/L (3.5-5.1)
--- NOTE | 2016-10-24 11:04 | HHI.PR ---
Subjective Remarks Patient is alert awake and oriented Not in any apparent distress had 2 Bm Feeling lot better Review of system for 10 point system otherwise unremarkable Objective Objective Results - Vital Signs Date Time Temp Pulse Resp B/P Pulse Ox O2 Delivery O2 Flow Rate FiO2 10/24/16 08:46 97 Nasal Cannula 2.00 10/24/16 08:38 96 Nasal Cannula 2.00 10/24/16 05:53 98.0 81 14 143/90 95 10/23/16 20:00 94 Nasal Cannula 2.00 10/23/16 17:37 97.5 81 18 142/70 89 10/23/16 17:37 99 Nasal Cannula 2.00 I/O 10/23/16 10/23/16 10/23/16 10/24/16 10/24/16 10/24/16 07:00 15:00 23:00 07:00 15:00 23:00 Intake Total 200 ml 720 ml 1320 ml 240 ml Balance 200 ml 720 ml 1320 ml 240 ml Intake Oral 200 ml 720 ml 1320 ml 240 ml # Voids 1 4 3 Result Diagram: 10/23/16 0937 10/24/16 0959 Other Results Laboratory Tests Test 10/24/16 09:59 Sodium Level 137 Potassium Level 3.8 Chloride Level 90 Carbon Dioxide Level 43.5 Anion Gap 4 Blood Urea Nitrogen 12 Creatinine 0.42 Estimat Glomerular Filtration 158 Rate Random Glucose 117 Calcium Level 7.8 Ammonia 54 Physical Exam Physical Exam GENERAL: The patient is Ax O x 3 without any apparent distress. VITAL SIGNS: Reviewed HEENT: Head is atraumatic, normocephalic. Negative conjunctival injection. No icterus. Mouth unremarkable. NECK: Supple. No increased JVD. Central trachea. CHEST: Decreased air entry bibasilar. No rhonchi noted. occ wheez bibasily CARDIOVASCULAR: S1 and S2 audible. Unable to hear any S3 gallop. ABDOMEN: Soft, nontender, no organomegaly. Positive bowel sounds. EXTREMITIES: No cyanosis or pedal edema appreciated. 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 A/P Assessment and Plan 1. Schizophrenia. 2. Depression. 3. Anxiety. 4. Pneumonia, improving. 5. COPD exacerbation, improving. 6. Seizure disorder. 7. Hyponatremia. RECOMMENDATIONS 1. Continue psych medications as per psychiatrist. 2. p.o. antibiotic. 3. Breathing treatments. and on needed basis oxygen 4. p.o. steroid. 5. Encourage p.o. intake. 6. Continue seizure medication as ordered. 7. Increase activity. 8. Labs reviewed. Patient had metabolic encphalopathy resolved, now back to baseline. On lactulose. s/p lactulose enema today. discussed with RN. Improving ammonia level Plan for labs in the morning including ammonia level. Discussed with RN on the floor. Further recommendations to follow as per the patient's progress. Yeuhda Logan MD Oct 24, 2016 11:04
--- NOTE | 2016-10-24 11:40 | HHI.PYPN ---
Subjective Remarks Patient seen in her room with nurse Magnolia, patient calm cooperative though did not recognize me from prior contacts. Is compliant with medications. Does denies suicidality of voices at this time Review of Systems Except as stated in HPI: all other systems reviewed are Neg Objective Alert: Yes [place]: Person, Place, Date Mood: Calm Affect: Restricted Memory Intact: Immediate, Recent, Remote Hallucinations: Other (she denies) Delusions: No Delusion Type: Other (no delusions observed) Suicidal: Ideation (she denies) Homicidal: Ideation (she denies) Insight/Judgement Poor Labs Test 10/24/16 09:59 Sodium Level 137 MEQ/L Potassium Level 3.8 MEQ/L Chloride Level 90 MEQ/L Carbon Dioxide Level 43.5 MEQ/L Anion Gap 4 MEQ/L Blood Urea Nitrogen 12 MG/DL Creatinine 0.42 MG/DL Estimat Glomerular Filtration 158 ML/MIN Rate Random Glucose 117 MG/DL Calcium Level 7.8 MG/DL Ammonia 54 MCMOL/L Vitals/IOs Vital Signs Date Time Temp Pulse Resp B/P Pulse Ox O2 Delivery O2 Flow Rate FiO2 10/24/16 08:46 97 Nasal Cannula 2.00 10/24/16 05:53 98.0 81 14 143/90 10/22/16 09:00 21 Intake and Output 10/23/16 10/23/16 10/24/16 08:00 16:00 00:00 Intake Total 200 ml 720 ml 1320 ml Balance 200 ml 720 ml 1320 ml Assessment & Plan Problem List: (1) schizophrenia Assessment & Plan Estimated LOS: days patient continues somewhat's vigilant though calmer and cooperative at this time Justification for Cont. Inpt. At this time patient will decompensate if placed in the lower level of care Discharge Planning To be determined Kt Bruce MD Oct 24, 2016 11:40
[2016-10-24] MEDS: acetaZOLAMIDE 250 MG TAB PO SCH (12:33)
[2016-10-24] MEDS: AZITHROMYCIN 250 MG TAB PO SCH (14:56)
[2016-10-24 18:43] VITALS: BP 111/71; PULSE 105; RESP 16; TEMP 98.4; O2SAT 91
[2016-10-24 20:55] VITALS: O2SAT 98
[2016-10-24] MEDS: REMOVE OLD NICOTINE PATCH T-DERMAL SCH (21:00)
[2016-10-24] MEDS: LORazepam 1 MG TAB PO PRN (21:06)
[2016-10-24] MEDS: QUEtiapine FUMARATE 25 MG TAB PO SCH (21:08)
[2016-10-25] MEDS: RESP: ALBUTEROL 2.5 MG/IPRATROPIUM 0.5 MG NEB (SCH) NEB ×4 (04:00→21:23)
[2016-10-25] MEDS: CEFUROXIME AXETIL 500 MG TAB PO SCH ×2 (04:10→15:02)
[2016-10-25 05:52] VITALS: BP 152/73; PULSE 91; RESP 16; TEMP 97.5; O2SAT 91
[2016-10-25] MEDS: INSULIN ASPART SUPPLEMENTAL SCALE SQ SCH ×4 (07:00→20:12)
--- NOTE | 2016-10-25 08:31 | HHI.PYPN ---
Subjective Remarks Patient seen in her room with floor staff, sitting in chair by Hubert eating breakfast. Patient calm though did not recognize me from yesterday. At times appears to be responding to internal stimuli, compliant medications Review of Systems Except as stated in HPI: all other systems reviewed are Neg Objective Alert: Yes [place]: Person, Place, Date Mood: Calm Affect: Restricted Memory Intact: Immediate, Recent, Remote Hallucinations: Other (she denies) Delusions: No Delusion Type: Other (no delusions observed) Suicidal: Ideation (she denies) Homicidal: Ideation (she denies) Insight/Judgement Very poor Labs Test 10/24/16 09:59 Sodium Level 137 MEQ/L Potassium Level 3.8 MEQ/L Chloride Level 90 MEQ/L Carbon Dioxide Level 43.5 MEQ/L Anion Gap 4 MEQ/L Blood Urea Nitrogen 12 MG/DL Creatinine 0.42 MG/DL Estimat Glomerular Filtration 158 ML/MIN Rate Random Glucose 117 MG/DL Calcium Level 7.8 MG/DL Ammonia 54 MCMOL/L Vitals/IOs Vital Signs Date Time Temp Pulse Resp B/P Pulse Ox O2 Delivery O2 Flow Rate FiO2 10/25/16 05:52 97.5 91 16 152/73 91 10/24/16 20:55 Nasal Cannula 2.00 10/22/16 09:00 21 Intake and Output 10/24/16 10/24/16 10/25/16 08:00 16:00 00:00 Intake Total 480 ml 600 ml Balance 480 ml 600 ml Assessment & Plan Problem List: (1) schizophrenia Assessment & Plan Estimated LOS: days patient remains isolated distracted appears to be responding to internal stimuli. Compliant medications Justification for Cont. Inpt. At this time patient would decompensate if placed in a lower level of care Discharge Planning To be determined Kt Bruce MD Oct 25, 2016 08:31
[2016-10-25 09:00] VITALS: BP_SYST 152; PULSE 91; RESP 17; TEMP 97.5; O2SAT 91
[2016-10-25] MEDS: TIMOLOL MALEATE 0.5% OPHT SOLN 5 ML BTL EACH EYE SCH ×3 (09:00→17:37)
[2016-10-25] MEDS: NICOTINE 7 MG/24 HR PATCH T-DERMAL SCH (09:00)
[2016-10-25] MEDS: predniSONE 50 MG TAB PO SCH (09:00)
[2016-10-25] MEDS: BUDESONIDE-FORMOTEROL 160/4.5 MCG INHALER INH SCH ×2 (09:00→20:12)
[2016-10-25] MEDS: LACTULOSE SYRUP 20 GM/30 ML CUP PO SCH ×4 (09:02→20:12)
[2016-10-25] MEDS: acetaZOLAMIDE 250 MG TAB PO SCH (09:03)
[2016-10-25] MEDS: METOPROLOL TARTRATE 25 MG TAB PO SCH ×2 (09:04→20:12)
[2016-10-25] MEDS: OXcarbazepine 300 MG TAB PO SCH ×2 (09:04→20:12)
[2016-10-25] MEDS: DIVALPROEX SODIUM E.R. 500 MG TAB PO SCH ×2 (09:04→20:12)
[2016-10-25] MEDS: PANTOPRAZOLE SOD 40 MG DELAYED RELEASE TAB PO SCH (09:04)
[2016-10-25] MEDS: SODIUM CHLORIDE 1 GRAM TAB PO SCH (09:09)
[2016-10-25 11:41] LABS: BICARBONATE 36.7 MEQ/L (21.0-32.0); POTASSIUM 4.1 MEQ/L (3.5-5.1)
--- NOTE | 2016-10-25 14:39 | HHI.PR ---
Subjective Remarks Patient is alert awake and oriented Not in any apparent distress had 4 loose Bm this morning Feeling lot better Review of system for 10 point system otherwise unremarkable Objective Objective Results - Vital Signs Date Time Temp Pulse Resp B/P Pulse Ox O2 Delivery O2 Flow Rate FiO2 10/25/16 09:52 Nasal Cannula 2.00 10/25/16 09:00 97.5 91 17 152/ 91 10/25/16 05:52 97.5 91 16 152/73 91 10/24/16 20:55 98 Nasal Cannula 2.00 10/24/16 20:30 93 Nasal Cannula 2.00 10/24/16 18:43 98.4 105 16 111/71 91 I/O 10/24/16 10/24/16 10/24/16 10/25/16 10/25/16 10/25/16 07:00 15:00 23:00 07:00 15:00 23:00 Intake Total 480 ml 600 ml 120 ml Balance 480 ml 600 ml 120 ml Intake Oral 480 ml 600 ml 120 ml # Voids 4 3 2 2 Result Diagram: 10/23/16 0937 10/25/16 1058 Other Results Laboratory Tests Test 10/25/16 10:58 Sodium Level 136 Potassium Level 4.1 Chloride Level 95 Carbon Dioxide Level 36.7 Anion Gap 4 Blood Urea Nitrogen 13 Creatinine 0.42 Estimat Glomerular Filtration 158 Rate Random Glucose 128 Calcium Level 8.0 Ammonia 85 Physical Exam Physical Exam GENERAL: The patient is Ax O x 3 without any apparent distress. VITAL SIGNS: Reviewed HEENT: Head is atraumatic, normocephalic. Negative conjunctival injection. No icterus. Mouth unremarkable. NECK: Supple. No increased JVD. Central trachea. CHEST: Decreased air entry bibasilar. No rhonchi noted. occ wheez bibasily CARDIOVASCULAR: S1 and S2 audible. Unable to hear any S3 gallop. ABDOMEN: Soft, nontender, no organomegaly. Positive bowel sounds. EXTREMITIES: No cyanosis or pedal edema appreciated. 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 A/P Assessment and Plan 1. Schizophrenia. 2. Depression. 3. Anxiety. 4. Pneumonia, improving. 5. COPD exacerbation, improving. 6. Seizure disorder. 7. Hyponatremia. RECOMMENDATIONS 1. Continue psych medications as per psychiatrist. 2. p.o. antibiotic. 3. Breathing treatments. and on needed basis oxygen 4. p.o. steroid. 5. Encourage p.o. intake. 6. Continue seizure medication as ordered. 7. Increase activity. 8. Labs reviewed. Patient had metabolic encphalopathy resolved, now back to baseline. On lactulose. discussed with RN. Increase ammonia level seems like it's baseline because patient has normal mentation alert oriented 3. Likely it was because of increased dose of Geodon. Will monitor Plan for labs in the morning, ammonia level. Discussed with RN on the floor. Yehuda Logan MD Oct 25, 2016 14:39
[2016-10-25 16:43] VITALS: BP 110/61; PULSE 93; RESP 20; TEMP 98.3; O2SAT 96
[2016-10-25 18:37] VITALS: BP 114/63; PULSE 90; RESP 16; TEMP 98.4; O2SAT 94
[2016-10-25] MEDS: QUEtiapine FUMARATE 25 MG TAB PO SCH (20:12)
[2016-10-25] MEDS: REMOVE OLD NICOTINE PATCH T-DERMAL SCH (20:13)
[2016-10-25 21:23] VITALS: O2SAT 94
[2016-10-25] MEDS: ACETAMINOPHEN 325 MG TAB PO PRN (21:44)
[2016-10-25] MEDS: LORazepam 1 MG TAB PO PRN (21:44)
[2016-10-26] MEDS: CEFUROXIME AXETIL 500 MG TAB PO SCH ×2 (03:11→17:09)
[2016-10-26] MEDS: RESP: ALBUTEROL 2.5 MG/IPRATROPIUM 0.5 MG NEB (SCH) NEB ×4 (04:53→20:54)
[2016-10-26 04:57] VITALS: O2SAT 94
[2016-10-26 05:49] VITALS: BP 133/74; PULSE 94; RESP 16; TEMP 97.8; O2SAT 94
[2016-10-26] MEDS: INSULIN ASPART SUPPLEMENTAL SCALE SQ SCH ×4 (06:00→20:51)
[2016-10-26] MEDS: DIVALPROEX SODIUM E.R. 500 MG TAB PO SCH ×2 (08:32→20:48)
[2016-10-26] MEDS: predniSONE 50 MG TAB PO SCH (08:32)
[2016-10-26] MEDS: METOPROLOL TARTRATE 25 MG TAB PO SCH ×2 (08:33→20:48)
[2016-10-26] MEDS: PANTOPRAZOLE SOD 40 MG DELAYED RELEASE TAB PO SCH (08:34)
[2016-10-26] MEDS: SODIUM CHLORIDE 1 GRAM TAB PO SCH (08:35)
[2016-10-26] MEDS: OXcarbazepine 300 MG TAB PO SCH ×2 (08:35→20:47)
[2016-10-26] MEDS: LACTULOSE SYRUP 20 GM/30 ML CUP PO SCH ×4 (08:38→20:47)
[2016-10-26] MEDS: BUDESONIDE-FORMOTEROL 160/4.5 MCG INHALER INH SCH ×2 (08:41→20:47)
[2016-10-26] MEDS: TIMOLOL MALEATE 0.5% OPHT SOLN 5 ML BTL EACH EYE SCH ×3 (08:43→17:10)
[2016-10-26] MEDS: NICOTINE 7 MG/24 HR PATCH T-DERMAL SCH (09:00)
[2016-10-26 09:16] VITALS: O2SAT 91
--- NOTE | 2016-10-26 14:29 | HHI.PYPN ---
Subjective Remarks Calm at the moment but ammonia levels cont to fluctuate. Has intermittantly expressed suicidal ideation unrelated to her near physical demise. Review of Systems Except as stated in HPI: all other systems reviewed are Neg Objective Alert: Yes [place]: Person, Place, Date Mood: Calm Affect: Restricted Memory Intact: Immediate, Recent, Remote Hallucinations: Other (she denies) Delusions: No Delusion Type: Other (no delusions observed) Suicidal: Ideation (she denies) Homicidal: Ideation (she denies) Insight/Judgement impaired insight and judgement. Labs Test 10/26/16 09:02 Ammonia 45 MCMOL/L Vitals/IOs Vital Signs Date Time Temp Pulse Resp B/P Pulse Ox O2 Delivery O2 Flow Rate FiO2 10/26/16 09:16 91 10/26/16 05:49 97.8 94 16 133/74 10/26/16 04:57 21 10/25/16 22:40 Nasal Cannula 2.00 Intake and Output 10/25/16 10/25/16 10/26/16 08:00 16:00 00:00 Intake Total 120 ml 840 ml Balance 120 ml 840 ml Assessment & Plan Problem List: (1) schizophrenia Assessment & Plan Still easily agitated. Estimated LOS: days Justification for Cont. Inpt. Unable to care for self. Ok Santos MD Oct 26, 2016 14:29
--- NOTE | 2016-10-26 15:30 | HHI.PR ---
Subjective Remarks Patient is alert awake and oriented Not in any apparent distress had 2 normal bowel movements Feeling lot better Review of system for 10 point system otherwise unremarkable Objective Objective Results - Vital Signs Date Time Temp Pulse Resp B/P Pulse Ox O2 Delivery O2 Flow Rate FiO2 10/26/16 09:16 91 10/26/16 05:49 97.8 94 16 133/74 94 10/26/16 04:57 94 21 10/25/16 22:40 Nasal Cannula 2.00 10/25/16 21:23 94 Nasal Cannula 2.00 10/25/16 18:37 98.4 90 16 114/63 94 10/25/16 16:43 98.3 93 20 110/61 96 I/O 10/25/16 10/25/16 10/25/16 10/26/16 10/26/16 10/26/16 07:00 15:00 23:00 07:00 15:00 23:00 Intake Total 120 ml 840 ml 960 ml Balance 120 ml 840 ml 960 ml Intake Oral 120 ml 840 ml 960 ml # Voids 2 3 4 3 Result Diagram: 10/23/16 0937 10/25/16 1058 Other Results Laboratory Tests Test 10/26/16 09:02 Ammonia 45 Physical Exam Physical Exam GENERAL: The patient is Ax O x 3 without any apparent distress. VITAL SIGNS: Reviewed HEENT: Head is atraumatic, normocephalic. Negative conjunctival injection. No icterus. Mouth unremarkable. NECK: Supple. No increased JVD. Central trachea. CHEST: Decreased air entry bibasilar. No rhonchi noted. No wheezing CARDIOVASCULAR: S1 and S2 audible. Unable to hear any S3 gallop. ABDOMEN: Soft, nontender, no organomegaly. Positive bowel sounds. EXTREMITIES: No cyanosis or pedal edema appreciated. 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 A/P Assessment and Plan 1. Schizophrenia. 2. Depression. 3. Anxiety. 4. Pneumonia, improving. 5. COPD exacerbation, improving. 6. Seizure disorder. 7. Hyponatremia. RECOMMENDATIONS 1. Continue psych medications as per psychiatrist. 2. p.o. antibiotic. 3. Breathing treatments. and on needed basis oxygen 4. p.o. steroid. 5. Encourage p.o. intake. 6. Continue seizure medication as ordered. 7. Increase activity. 8. Labs reviewed. Patient had metabolic encphalopathy resolved, now back to baseline. On lactulose. Ammonia level better Discussed with RN on the floor. Discussed with patient We are signing off, call if needed Yehuda Logan MD Oct 26, 2016 15:30
[2016-10-26 19:13] VITALS: BP 112/67; PULSE 89; RESP 18; TEMP 98.3; O2SAT 92
[2016-10-26] MEDS: QUEtiapine FUMARATE 25 MG TAB PO SCH (20:48)
[2016-10-26] MEDS: REMOVE OLD NICOTINE PATCH T-DERMAL SCH (20:54)
[2016-10-27] MEDS: RESP: ALBUTEROL 2.5 MG/IPRATROPIUM 0.5 MG NEB (SCH) NEB ×2 (03:24→10:23)
[2016-10-27] MEDS: CEFUROXIME AXETIL 500 MG TAB PO SCH (05:58)
[2016-10-27] MEDS: INSULIN ASPART SUPPLEMENTAL SCALE SQ SCH ×2 (06:09→11:00)
[2016-10-27 06:19] VITALS: BP 122/71; PULSE 77; RESP 16; TEMP 97.9; O2SAT 92
[2016-10-27] MEDS: LACTULOSE SYRUP 20 GM/30 ML CUP PO SCH ×2 (08:11→12:39)
[2016-10-27] MEDS: SODIUM CHLORIDE 1 GRAM TAB PO SCH (08:11)
[2016-10-27] MEDS: predniSONE 50 MG TAB PO SCH (08:12)
[2016-10-27] MEDS: PANTOPRAZOLE SOD 40 MG DELAYED RELEASE TAB PO SCH (08:12)
[2016-10-27] MEDS: OXcarbazepine 300 MG TAB PO SCH (08:13)
[2016-10-27] MEDS: METOPROLOL TARTRATE 25 MG TAB PO SCH (08:13)
[2016-10-27] MEDS: DIVALPROEX SODIUM E.R. 500 MG TAB PO SCH (08:14)
[2016-10-27] MEDS: NICOTINE 7 MG/24 HR PATCH T-DERMAL SCH (08:15)
[2016-10-27] MEDS: TIMOLOL MALEATE 0.5% OPHT SOLN 5 ML BTL EACH EYE SCH ×2 (08:16→12:40)
[2016-10-27] MEDS: BUDESONIDE-FORMOTEROL 160/4.5 MCG INHALER INH SCH (08:17)
[2016-10-27] MEDS: ACETAMINOPHEN 325 MG TAB PO PRN (09:09)
[2016-10-27 10:24] VITALS: O2SAT 93
[2016-10-27] MEDS ORDERED: OXCA300T PO (11:59)
[2016-10-27] MEDS ORDERED: DEPA500T3 PO (11:59)
[2016-10-27] MEDS ORDERED: METO25TA3 PO (11:59)
[2016-10-27] MEDS ORDERED: LACT10SO PO (11:59)
[2016-10-27] MEDS ORDERED: PRED5TAB PO (12:06)
[2016-10-27] MEDS ORDERED: PRED20 PO (12:06)
[2016-10-27] MEDS ORDERED: QUET1TAB7 PO (12:06)
--- NOTE | 2016-10-27 12:17 | HHI.DS ---
Psychiatry Discharge Summary Inpatient Psychiatric care?: Yes Advance Directive: No Reason Not Provided: Patient has none Mental Health AdvanceDirective: No (patient is confused) Health Care Proxy: No Admission Admission Date Oct 20, 2016 at 23:30 Admission Diagnosis: (1) Schizophrenia ICD Code: F20.9 Brief History The patient is a 51 years old woman, domiciled in a [facility] facility, with extensive psychiatric history of schizophrenia, multiple psychiatric hospitalizations, she is known by the psychiatric service, she was hospitalized in the 2500 units under the care of Dr. Bruce last July 2016, she has been treated with fluphenazine 10 mg twice a day and Depakote 1000 milligram twice a day, admitted in the hospital due to COPD exacerbation, she needed intubation. Patient was seen in the medical floor 2 days ago for psychiatric consultation due to depressive symptoms and psychotic admission was suggested. Patient was seen today for psychiatric evaluation, she is states that she feels a little bit better than 2 days ago when she was in the first time, but still sad, with very low level of energy, continuous sadness about her medical condition, poor concentration, low self esteem, generalized pessimism, but she denies suicidal or homicidal ideation, he denies visual and auditory hallucinations. Patient is fully oriented 3, no gross cognitive impairment observed, no delirious or confusion reported or observed. Tobacco Use In Past 30 Days: 5 or More Cigarettes/Day Alcohol Use: Never Hospital Course Patient was admitted in the med psych unit transfer from medical floor. She was admitted in the hospital due to COPD exacerbation, during the hospitalization recent expressed depression and suicidal ideation in the context of acute medical problems and been out of her psychotropic. Once patient was hospitalized in the psychiatric unit when she continued her medical care, her psychotropic were readjusted and she showed immediate good response of her mood and behavior. With the days the patient expressed improving her mood, better sleep, better level of energy, better appetite, and denied suicidal ideation. During the psychiatric hospitalization patient was usually calm, cooperative and pleasant. She did have one episode of aggressive behavior and agitation at night most probably secondary to delirium related with her medical conditions. Patient's ammonia was high at some point and her Depakote was decreased to 500 mg per day and since then ammonia has been more stable. At the moment of the evaluation the patient denies depression, anxiety , halima, perceptual disturbances, suicidal and was ideation. She seems to be a baseline and at her lowest level of risk ready to go back to her living facility. Results Blood Pressure 122 / 71 Vital Signs Date Time Temp Pulse Resp B/P Pulse Ox O2 Delivery O2 Flow Rate FiO2 10/27/16 10:24 93 21 10/27/16 06:19 97.9 77 16 122/71 10/26/16 21:00 Room Air 10/25/16 22:40 2.00 Laboratory Tests Test 10/25/16 10/26/16 10:58 09:02 Chloride Level 95 MEQ/L (98-107) Carbon Dioxide Level 36.7 MEQ/L (21.0-32.0) Anion Gap 4 MEQ/L (5-15) Creatinine 0.42 MG/DL (0.50-1.00) Random Glucose 128 MG/DL (74-106) Calcium Level 8.0 MG/DL (8.5-10.1) Ammonia 85 MCMOL/L 45 MCMOL/L (11-32) (11-32) Laboratory Results Test 10/23/16 09:37 Valproic Acid (Depakene) Level 62 MCG/ML (50-100) Summary of Major Lab Results None Summary of Procedures None Pending results at discharge: No Medications # of Antipsychotic meds at D/C: 1 Approp Antipsych med options 1 - Minimum of three failed multiple trials of monotherapy. 2 - Documented plan to taper to monotherapy due to previous use of multiple meds OR cross-taper in progress at D/C. 3 - Documentation of augmentation of Clozapine. 4 - Justification other than those listed in allowable values 1-3, document here : Discharge Discharge Date: Oct 27, 2016 Discharge Diagnosis: (1) Schizophrenia ICD Code: F20.9 Mental Status Exam at Disch woman, who appears older than his stated age, with marked extravism, [facility], good hygiene, calm and cooperative, her speech is fluent and is sometimes, her mood is"fine", affect is flat, thought processes logical and coherent, thought content devoid of suicidal ideation, homicidal ideation, visual and auditory hallucinations. Her insight, impulse control, judgment is fair. Memory is good. Pt Condition on Discharge: Stable Discharge Disposition: Discharge to SNF Discharge Instructions Diet Instructions: As Tolerated, No Restrictions, Heart Healthy Diet Activities you can perform: Regular-No Restrictions Scheduled Appointment: Facility medical and mental health Appointment Date: Oct 28, 2016 Appointment Time: 08:30am Discharge Time > 30 minutes Discharge/Advance Care Plan Health Problems: (1) schizophrenia Goals to promote your health * To prevent worsening of your condition and complications * To maintain your health at the optimal level Directions to meet your goals Take your medications as prescribed Follow your dietary instruction Follow activity as directed Keep your appointments as scheduled Take your immunizations and boosters as scheduled If your symptoms worsen call your PCP, if no PCP go to Urgent Care Center or Emergency Room For 29/03 questions related to your inpatient stay or results of tests pending at discharge, please contact Dr. Vinayak Faye at Smoking is Dangerous to Your Health. Avoid second hand smoking Vinayak Faye MD Oct 27, 2016 12:17
== END 2016-10-27 13:40 | DRG 885 ==
LOC: H4EA 23:30
PROVIDERS: ADMIT Psychiatry & Neurology Psychiatry; ATTEND Psychiatry & Neurology Psychiatry
DX: F20.9 Schizophrenia, unspecified (principal); J18.9 Pneumonia, unspecified organism; J44.0 Chronic obstructive pulmonary disease with (acute) lower respiratory infection; R45.851 Suicidal ideations; E87.1 Hypo-osmolality and hyponatremia; J44.1 Chronic obstructive pulmonary disease with (acute) exacerbation; F32.9 Major depressive disorder, single episode, unspecified; G40.909 Epilepsy, unspecified, not intractable, without status epilepticus; F41.9 Anxiety disorder, unspecified; F17.200 Nicotine dependence, unspecified, uncomplicated
CPT/HCPCS: 80048; 80061; 80164; 82140; 82948; 83036; 85025; 94640; 94664; J1815; J3486; J7030; J7512

== ENCOUNTER 2017-01-13 15:23 | Inpatient (IN) | payer MEDICARE, MEDICAID ==
[~2017-01-13] VITALS: Ht 172.7 cm; Wt 58.8 kg
[~2017-01-13 15:23] MED LIST changes: +PRED20 PO; +PRED5TAB PO; +QUET1TAB7 PO
[2017-01-13 15:25] VITALS: BP 136/73; PULSE 74; RESP 18; TEMP 97.6; O2SAT 95
--- NOTE | 2017-01-13 15:32 | PD ---
Physical Exam Date Seen by Provider: January 13, 2017 Time Seen by Provider: 15:30 Narrative 51 year old female presents to the emergency department for psychiatric evaluation. She states she wants to report the staff at her [facility]. According to staff there, she was delusional and aggressive this morning. They state she is not acting herself. Patient has history of schizophrenia. Vital signs reviewed. Patient awaiting bed placement. Data Data Last Documented VS Vital Signs Date Time Temp Pulse Resp B/P Pulse Ox O2 Delivery O2 Flow Rate FiO2 01/13/17 15:25 97.6 74 18 136/73 95 MDM Supervised Visit with PASCALE: Shelby Daigle January 13, 2017 15:32
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
[2017-01-13 16:58] LABS: AUTOMATED NEUTROPHIL # 2.8 TH/MM3 (1.8-7.7); BASOPHIL % 0.5 % (0.0-2.0); EOSINOPHIL % 0.7 % (0.0-4.0); HEMATOCRIT 37.5 % (35.0-46.0); HEMO FLAGS DIFF FINAL; LYMPH % 33.9 % (9.0-44.0); LYMPHOCYTE # 1.8 TH/MM3 (1.0-4.8); MEAN CELL VOLUME 93.4 FL (80.0-100.0); MEAN CORPUSCULAR HEMOGLOBIN 32.9 PG (27.0-34.0); MEAN CORPUSCULAR HGB CONC 35.2 % (32.0-36.0); MONO % 13.9 % (0.0-8.0); PLATELET COUNT 173 TH/MM3 (150-450); RED BLOOD COUNT 4.01 MIL/MM3 (4.00-5.30); RED CELL DISTRIBUTION WIDTH 13.1 % (11.6-17.2); WHITE BLOOD COUNT 5.4 TH/MM3 (4.0-11.0)
[2017-01-13 17:07] LABS: AMPHETAMINE, URINE NEG (NEG); BARBITURATES, URINE NEG (NEG); COCAINE, URINE NEG (NEG)
[2017-01-13 17:17] LABS: BACTERIA, URINE OCC /hpf; BLOOD, URINE NEG (NEG); GLUCOSE,URINE NEG (NEG); HYALINE CAST, URINE 11 /lpf (RARE); KETONE, URINE TRACE mg/dL (NEG); MUCUS URINE FEW /lpf (OCC); NITRITE,URINE NEG (NEG); SQUAMOUS EPITHELIAL CELL URINE 1 /hpf (0-5); URINE COLOR YELLOW (YELLW/STRAW)
[2017-01-13 17:21] LABS: COMMENT (UR) CULT NOT INDICATED; CULTURE IF INDICATED CULT NOT INDICATED
[2017-01-13 17:38] LABS: ALKALINE PHOSPHATASE 73 U/L (45-117); ALT (GPT) 19 U/L (10-53); ANION GAP 9 MEQ/L (5-15); AST (GOT) 20 U/L (15-37); BICARBONATE 27.4 MEQ/L (21.0-32.0); BLOOD UREA NITROGEN 6 MG/DL (7-18); CHLORIDE 87 MEQ/L (98-107); GLOMERULAR FILTRATION RATE 83 ML/MIN (>89); POTASSIUM 4.5 MEQ/L (3.5-5.1); TOTAL BILIRUBIN ADULT 0.2 MG/DL (0.2-1.0)
[2017-01-13 17:46] LABS: SODIUM (NA) 123 MEQ/L (136-145)
[2017-01-13] MEDS ORDERED: ESCI20TA PO (17:49)
[2017-01-13] MEDS ORDERED: SIMV10TA PO (17:49)
[2017-01-13] MEDS ORDERED: ALEN1TAB48 PO (17:52)
[2017-01-13] MEDS ORDERED: SODIUM CHLOR 0.9% 1000 ML INJ 1,000 ML IV ONE (18:00)
[2017-01-13] MEDS ORDERED: SODIUM CHLORIDE 1 GRAM TAB PO ONE (18:00)
[2017-01-13 18:52] VITALS: BP 123/73; PULSE 70; RESP 18; O2SAT 97
[2017-01-13 19:13] VITALS: BP 121/64; PULSE 75; RESP 16; O2SAT 98
[2017-01-13 21:16] VITALS: BP 118/70; PULSE 69; RESP 16; TEMP 97.2; O2SAT 93
[2017-01-14 04:25] VITALS: BP 119/74; PULSE 67; RESP 16; TEMP 96.5; O2SAT 91
[2017-01-14 07:32] VITALS: BP 128/72; PULSE 74; RESP 17; TEMP 97.9; O2SAT 93
[2017-01-14] MEDS ORDERED: SODIUM CHLORIDE 0.9% FLUSH 10 ML FLUSH IV FLUSH PRN (08:45)
[2017-01-14] MEDS ORDERED: ONDANSETRON HCL 4 MG/2 ML VIAL IVP PRN (08:45)
[2017-01-14] MEDS ORDERED: NALOXONE HCL 0.4 MG/ML AMP IV PRN (08:45)
[2017-01-14] MEDS ORDERED: ACETAMINOPHEN 325 MG TAB PO PRN (08:45)
[2017-01-14] MEDS: METOPROLOL TARTRATE 25 MG TAB PO SCH (09:00)
[2017-01-14] MEDS ORDERED: PILL SPLITTER OTHER PRN (09:00)
[2017-01-14] MEDS: SODIUM CHLORIDE 0.9% FLUSH 10 ML FLUSH IV FLUSH SCH ×2 (09:00→23:59)
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
[2017-01-14] MEDS ORDERED: RESP: ALBUTEROL 2.5 MG/IPRATROPIUM 0.5 MG NEB (PRN) NEB (10:30)
[2017-01-14 10:36] VITALS: BP 96/59; PULSE 97; TEMP 96.1; O2SAT 92
[2017-01-14 12:26] LABS: BICARBONATE 29.5 MEQ/L (21.0-32.0); POTASSIUM 4.2 MEQ/L (3.5-5.1)
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
[2017-01-14 16:00] VITALS: BP 122/74; PULSE 72; RESP 18; TEMP 98; O2SAT 94
[2017-01-14] MEDS: DIVALPROEX SODIUM E.R. 500 MG TAB PO SCH (16:02)
[2017-01-14] MEDS: ESCITALOPRAM OXALATE 20 MG TAB PO SCH (16:02)
[2017-01-14] MEDS: OXcarbazepine 300 MG TAB PO SCH ×2 (16:03→23:59)
--- NOTE | 2017-01-14 16:22 | EKG ---
Date Performed: 01/13/2017 Time Performed: 18:49:17 PTAGE: 51 years EKG: Sinus rhythm NORMAL ECG PREVIOUS TRACING : 10/16/2016 22.34 Compared to previous tracing, left bundle branch is no long er present. DOCTOR: Juan J Kaye Interpretating Date/Time 01/14/2017 16:22:02
[2017-01-14 19:08] VITALS: BP 104/62; PULSE 84; RESP 18; TEMP 96.5; O2SAT 92
[2017-01-14] MEDS ORDERED: QUEtiapine FUMARATE 100 MG TAB PO SCH (21:00)
[2017-01-14] MEDS ORDERED: QUEtiapine FUMARATE 25 MG TAB PO SCH (21:00)
[2017-01-14] MEDS ORDERED: PRAVASTATIN SOD 20 MG TAB PO SCH (21:00)
[2017-01-14 23:47] VITALS: BP 113/89; PULSE 81; RESP 16; TEMP 97.5; O2SAT 96
[2017-01-15 04:00] VITALS: BP 100/67; PULSE 67; RESP 18; TEMP 97.1; O2SAT 96
[2017-01-15 08:00] VITALS: BP_SYST 79; BP_SYST 88; BP_DIAS 52; BP_DIAS 65; PULSE 70; RESP 18; TEMP 97; O2SAT 92
[2017-01-15] MEDS: METOPROLOL TARTRATE 25 MG TAB PO SCH ×2 (09:00)
[2017-01-15] MEDS: SODIUM CHLORIDE 0.9% FLUSH 10 ML FLUSH IV FLUSH SCH (09:00)
--- NOTE | 2017-01-15 09:46 | HHI.PR ---
Subjective Remarks awakes to voice, oriented x 2-3 sitter at bsd has been sleeping calm denies SI no acute changes overnight Objective Objective Results - Vital Signs Date Time Temp Pulse Resp B/P Pulse Ox O2 Delivery O2 Flow Rate FiO2 01/15/17 08:00 97.0 70 18 79/52 92 01/15/17 04:00 97.1 67 18 100/67 96 01/14/17 23:47 97.5 81 16 113/89 96 01/14/17 23:17 Room Air 01/14/17 19:08 96.5 84 18 104/62 92 01/14/17 16:00 98.0 72 18 122/74 94 01/14/17 10:36 96.1 97 96/59 92 I/O 01/14/17 01/14/17 01/14/17 01/15/17 01/15/17 01/15/17 07:00 15:00 23:00 07:00 15:00 23:00 Intake Total 390 ml 100 ml 10 ml Balance 390 ml 100 ml 10 ml Intake Oral 390 ml 100 ml 10 ml # Voids 7 1 1 # Bowel Movements 0 0 Result Diagram: 01/13/17 1620 01/14/17 1125 Other Results Laboratory Tests Test 01/14/17 01/15/17 11:25 00:10 Sodium Level 133 Potassium Level 4.2 Chloride Level 97 Carbon Dioxide Level 29.5 Anion Gap 7 Blood Urea Nitrogen 6 Creatinine 0.43 Estimat Glomerular Filtration 154 Rate Random Glucose 91 Serum Osmolality 273 Calcium Level 8.6 Thyroid Stimulating Hormone 0.417 3rd Gen Random Cortisol 12.0 Urine Osmolality 424 ROS General: Other (12 point ROS difficult to obtain ) Physical Exam Physical Exam GENERAL: This is a well-nourished, well-developed patient, in no apparent distress. SKIN: No rashes, ecchymoses or lesions. Cool and dry. HEAD: Atraumatic. Normocephalic. No temporal or scalp tenderness. EYES: Pupils equal round and reactive. Extraocular motions intact. No scleral icterus. No injection or drainage. ENT: Nose without bleeding, purulent drainage or septal hematoma. Throat without erythema, tonsillar hypertrophy or exudate. Uvula midline. Airway patent. Poor dentition. NECK: Trachea midline. No JVD or lymphadenopathy. Supple, nontender, no meningeal signs. CARDIOVASCULAR: Regular rate and rhythm without murmurs, gallops, or rubs. RESPIRATORY: Exp. wheeze GASTROINTESTINAL: Abdomen soft, non-tender, nondistended. No hepato-splenomegaly , or palpable masses. No guarding. MUSCULOSKELETAL: Extremities without clubbing, cyanosis, or edema. No joint tenderness, effusion, or edema noted. No calf tenderness. Negative Homans sign bilaterally. NEUROLOGICAL: Sleeping, awakes to voice, oriented x 2-3. Calm Urinary Catheter: No Vascular Central Line Catheter: No A/P Diagnosis: (1) Hyponatremia (2) Seizure disorder (3) schizophrenia (4) Agitation (5) COPD (chronic obstructive pulmonary disease) (6) HTN (hypertension) Assessment and Plan 51-year-old female with history of schizophrenia and previous admissions to psychiatric unit, presented to emergency room with after mental status, patient was not acting herself and was more delusional and aggressive. Evaluated in emergency room and found hyponatremic. -Appreciate psych input, recommends to restart meds slowly as hyponatremia improving. Pt. needs further treatment in psych unit. Sitter at bedside continue psychotropic agents, Na improving Continue with fluid restriction 1500 cc labs reviewed, serum osm 273 -Sodium improving, 133 today COPD, stable Duo nebs as needed for any shortness of breath Hypertension, stable Continue home medications Seizure disorder Monitor for seizures Seizure precautions SCDs for DVT prophylaxis Sodium improving pt. clinically stable, ok for discharge to psych unit Diet-heart healthy witih 1500 cc fluid restriction BMP in am Activity-as tolerated D/W RN D/W Dr. Logan D/W CM D/W pt. This patient was seen by myself and Dr. Logan, this note is written on his behalf Problem Qualifiers (1) COPD (chronic obstructive pulmonary disease): Qualified Code: J44.9 - Chronic obstructive pulmonary disease, unspecified COPD type (2) HTN (hypertension): Qualified Code: I10 - Essential hypertension Gianna Urban January 15, 2017 09:46
[2017-01-15] MEDS ORDERED: QUET1TAB8 PO (09:50)
--- NOTE | 2017-01-15 09:51 | HHI.DCPOC ---
Discharge Care Plan Diagnosis: (1) Hyponatremia (2) schizophrenia (3) HTN (hypertension) (4) Agitation (5) Seizure disorder (6) COPD (chronic obstructive pulmonary disease) Your Health Problems Are: Anxiety Difficulty with ADL Goals to Promote Your Health * To prevent worsening of your condition and complications * To maintain your health at the optimal level Directions to Meet Your Goals Take your medications as prescribed Follow your dietary instruction Follow activity as directed Keep your appointments as scheduled Take your immunizations and boosters as scheduled If your symptoms worsen call your PCP, if no PCP go to Urgent Care Center or Emergency Room Smoking is Dangerous to Your Health. Avoid second hand smoke Call the 24-hour hour crisis hotline for domestic abuse at Gianna Urban [facility] January 15, 2017 09:50
[2017-01-15] MEDS ORDERED: SODIUM CHLORID 0.9% 500 ML INJ 500 ML IV SCH (10:00)
[2017-01-15] MEDS: ESCITALOPRAM OXALATE 20 MG TAB PO SCH (10:02)
[2017-01-15] MEDS: DIVALPROEX SODIUM E.R. 500 MG TAB PO SCH ×2 (10:03)
[2017-01-15] MEDS: OXcarbazepine 300 MG TAB PO SCH (10:03)
[2017-01-15 11:30] VITALS: BP 98/62
[2017-01-15 12:00] VITALS: BP 92/66; PULSE 70; RESP 18; TEMP 97.2; O2SAT 92
[2017-01-15 15:19] VITALS: BP 103/76; PULSE 72; TEMP 97.6
== END 2017-01-15 17:17 | DRG 641 ==
LOC: NEPC 15:23 → NEDA 18:23 → N06B 21:15 → N06A 01-14 12:11
PROVIDERS: ADMIT Specialist; ATTEND Specialist
DX: E87.1 Hypo-osmolality and hyponatremia (principal); I10 Essential (primary) hypertension; F20.0 Paranoid schizophrenia; J44.9 Chronic obstructive pulmonary disease, unspecified; F41.9 Anxiety disorder, unspecified; F17.210 Nicotine dependence, cigarettes, uncomplicated; G40.909 Epilepsy, unspecified, not intractable, without status epilepticus
CPT/HCPCS: 80048; 80053; 80164; 80307; 81001; 82533; 83930; 83935; 84443; 85025; 93005; 99284; J7030; J7040

== ENCOUNTER 2017-01-15 17:52 | Inpatient (IN) | payer MEDICARE, MEDICAID ==
[~2017-01-15 17:52] MED LIST changes: -ADVA250A INH; +ALEN1TAB48 PO; -DIVA500T3 PO; +ESCI20TA PO; -FLUP10TA PO; -PRED20 PO; -PRED5TAB PO; +QUET1TAB8 PO; +SIMV10TA PO; -SODI1TAB PO; -TIMO0.5S5 EACH EYE
[2017-01-15] MEDS ORDERED: ALUMINUM/MAGNESIUM/SIMETH 30 ML CUP PO PRN (18:30)
[2017-01-15] MEDS ORDERED: ACETAMINOPHEN 325 MG TAB PO PRN (18:30)
[2017-01-15] MEDS ORDERED: MAGNESIUM HYDROXIDE SUSP 30 ML CUP PO PRN (18:30)
[2017-01-15] MEDS ORDERED: LORazepam 2 MG/ML VIAL IM PRN (18:30)
[2017-01-15] MEDS ORDERED: LORazepam 1 MG TAB PO PRN (18:30)
[2017-01-15] MEDS: DIVALPROEX SODIUM E.R. 500 MG TAB PO SCH (20:59)
[2017-01-15] MEDS: QUEtiapine FUMARATE 100 MG TAB PO SCH (21:00)
[2017-01-15] MEDS: PRAVASTATIN SOD 20 MG TAB PO SCH (21:00)
[2017-01-15] MEDS: OXcarbazepine 300 MG TAB PO SCH (21:00)
[2017-01-15] MEDS: REMOVE OLD NICOTINE PATCH T-DERMAL SCH (21:00)
[2017-01-16 05:03] LABS: ANION GAP 8 MEQ/L (5-15); BLOOD UREA NITROGEN 11 MG/DL (7-18); CHLORIDE 96 MEQ/L (98-107); GLOMERULAR FILTRATION RATE 126 ML/MIN (>89); HDL CHOLESTEROL 56.6 MG/DL (40.0-60.0); LDL CHOLESTEROL 67 MG/DL (0-99); SODIUM (NA) 135 MEQ/L (136-145)
[2017-01-16 05:49] VITALS: BP 123/80; PULSE 69; RESP 16; TEMP 98
[2017-01-16] MEDS: ESCITALOPRAM OXALATE 20 MG TAB PO SCH (08:50)
[2017-01-16] MEDS: OXcarbazepine 300 MG TAB PO SCH ×2 (08:50→22:30)
[2017-01-16] MEDS: DIVALPROEX SODIUM E.R. 500 MG TAB PO SCH ×2 (08:50→22:30)
[2017-01-16] MEDS ORDERED: PNEUMOCOCCAL POLYVALENT INJ 25 MCG/0.5 ML SYR IM ONE (09:00)
[2017-01-16] MEDS: NICOTINE 21 MG/24 HR PATCH T-DERMAL SCH (09:00)
[2017-01-16] MEDS ORDERED: ALENDRONATE SODIUM 70 MG TAB PO SCH (09:00)
[2017-01-16] MEDS ORDERED: INFLUENZA VIRUS VACCINE (QUADRIVALENT) 0.5 ML SYR IM ONE (10:00)
[2017-01-16] MEDS ORDERED: MAGNESIUM HYDROXIDE SUSP 30 ML CUP PO PRN (12:30)
[2017-01-16] MEDS ORDERED: ALUMINUM/MAGNESIUM/SIMETH 30 ML CUP PO PRN (12:30)
[2017-01-16] MEDS ORDERED: ACETAMINOPHEN 325 MG TAB PO PRN (12:30)
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
--- NOTE | 2017-01-16 13:38 | PD.CONS ---
HPI Service [facility] Hospitalists Consult Requested By Dr. Bruce Reason for Consult medical management, hyponatremia Primary Care Physician Kael Sutton M.D. Diagnoses: History of Present Illness This a 51-year-old female with significant past medical history of schizophrenia , COPD, tobacco abuse, respiratory failure requiring mechanical ventilation, hyponatremia. Patient is a resident at [facility]. Patient presented to the emergency room for evaluation, after staff noted that she was delusional and aggressive and not acting herself. Patient is compliant with medication, has history of schizophrenia. She has been admitted multiple times a psychiatric unit. Patient is not a reliable historian. Patient initially admitted to the [facility] and treated for hyponatremia. Sodium was 123. Patient was put on a fluid restriction and was given one thousand cc IV fluid bolus. Urine sodium and osmolarity were ordered. Hyponatremia has been resolving, current sodium is 135. Patient is currently in the psychiatric unit. Psychotropic agents have been restarted per psychiatry. Patient is calm , she denies any suicidal ideation, denies any facial or auditory hallucinations. She is less anxious. Patient has no complaints at this time, requesting something to drink. Hospitalist services are requested for medical management of hyponatremia. (Gianna Urban) Review of Systems ROS Limitations: Poor Historian (Gianna Urban) Past Family Social History Past Medical History Anxiety Schizophrenia COPD Tobacco abuse Migraines Recently admitted for hyponatremia Previous admissions for respiratory failure, has been intubated Anemia Seizure disorder? Past Surgical History Right cataract with previous surgery Reported Medications Reported Meds & Active Scripts Active Quetiapine (Quetiapine Fumarate) 100 Mg Tab 100 Mg PO HS Oxcarbazepine 300 Mg Tab 300 Mg PO BID Depakote ER (Divalproex Sodium) 500 Mg Mila 500 Mg PO BID Reported Alendronate (Alendronate Sodium) 70 Mg Tab 70 Mg PO Q7D ON FRIDAYS Simvastatin 10 Mg Tab 10 Mg PO HS Escitalopram (Escitalopram Oxalate) 20 Mg Tab 20 Mg PO DAILY (Gianna Urban) Allergies: Coded Allergies: Haldol (Verified Allergy, Unknown, 10/16/16) Active Ordered Medications Inpatient Medications Acetaminophen (Tylenol) 650 mg Q4H PRN PO Pain 1-5 or Temp >101F; Start at 12:30; Stop 01/16/17 at 12:34; Status DC Al Hydrox/Mg Hydrox/Simethicone (Mag-Al Plus Susp Liq) 30 ml Q6H PRN PO DYSPEPSIA; Start 01/16/17 at 12:30; Stop 01/16/17 at 12:34; Status DC Alendronate Sodium (Fosamax) 70 mg Q7D PO ; Start 01/16/17 at 09:00; Stop at 09:00; Status DC Divalproex Sodium (Depakote Er) 500 mg BID PO Last administered on 01/16/17 08 :50; Start 01/15/17 at 21:00 Escitalopram Oxalate (Lexapro) 20 mg DAILY PO Last administered on 01/16/17 08 :50; Start 01/16/17 at 09:00 Influenza Virus Vaccine (Flu (Quadrivalent) Vaccine Inj) 0.5 ml ONCE ONCE IM ; Start 01/16/17 at 10:00; Stop 01/16/17 at 10:01; Status DC Lorazepam (Ativan Inj) 1 mg Q6H PRN IM MODERATE TO SEVERE ANXIETY; Start at 18:30 Lorazepam (Ativan) 1 mg Q6H PRN PO MODERATE TO SEVERE ANXIETY; Start 01/15/17 at 18:30 Magnesium Hydroxide (Milk Of Magnesia Liq) 30 ml DAILY PRN PO CONSTIPATION; Start 01/16/17 at 12:30; Stop 01/16/17 at 12:34; Status DC Miscellaneous Information 1 HS T-DERMAL ; Start 01/15/17 at 21:00 Nicotine (Habitrol 21 Mg Patch.24 Hr) 1 patch DAILY T-DERMAL ; Start 01/16/17 at 09:00 Oxcarbazepine (Trileptal) 300 mg BID PO Last administered on 01/16/17 08:50; Start 01/15/17 at 21:00 Pneumococcal Polyvalent Vaccine (Pneumovax-23 Inj) 25 mcg ONCE ONCE IM ; Start 01/16/17 at 09:00; Stop 01/16/17 at 09:01; Status DC Pravastatin Sodium (Pravachol) 20 mg HS PO Last administered on 01/15/17 21:00 ; Start 01/15/17 at 21:00 Quetiapine Fumarate (SEROquel) 100 mg HS PO Last administered on 01/15/17t 21: 00; Start 01/15/17 at 21:00 Family History Patient has no family close by, she doesn't know much about their past medical history Social History Patient lives at an assisted living facility, was smoking 1 pack a day for many years quit 3 months ago. No alcohol abuse but states she may start soon to deal with problems. No substance abuse. Patient has one son. Has no family living in the area. States that she has very close friends at a local buddhism. (Gianna Urban) Physical Exam Vital Signs Vital Signs Date Time Temp Pulse Resp B/P Pulse Ox O2 Delivery O2 Flow Rate FiO2 01/16/17 05:49 98.0 69 16 123/80 Physical Exam GENERAL: This is a well-nourished, well-developed patient, in no apparent distress. SKIN: No rashes, ecchymoses or lesions. Cool and dry. HEAD: Atraumatic. Normocephalic. No temporal or scalp tenderness. EYES: Pupils equal round and reactive. Extraocular motions intact. No scleral icterus. No injection or drainage. ENT: Nose without bleeding, purulent drainage or septal hematoma. Throat without erythema, tonsillar hypertrophy or exudate. Uvula midline. Airway patent. Poor dentition. NECK: Trachea midline. No JVD or lymphadenopathy. Supple, nontender, no meningeal signs. CARDIOVASCULAR: Regular rate and rhythm without murmurs, gallops, or rubs. RESPIRATORY: Clear to auscultation. Breath sounds equal bilaterally. No wheezes , rales, or rhonchi. GASTROINTESTINAL: Abdomen soft, non-tender, nondistended. No hepato-splenomegaly , or palpable masses. No guarding. MUSCULOSKELETAL: Extremities without clubbing, cyanosis, or edema. No joint tenderness, effusion, or edema noted. No calf tenderness. Negative Homans sign bilaterally. NEUROLOGICAL: Awakes to voice, oriented 3. Following commands, no focal deficits. Calm Laboratory Laboratory Tests Test 01/16/17 04:16 Sodium Level 135 Potassium Level 4.0 Chloride Level 96 Carbon Dioxide Level 31.0 Anion Gap 8 Blood Urea Nitrogen 11 Creatinine 0.51 Estimat Glomerular Filtration 126 Rate Random Glucose 85 Calcium Level 8.0 Triglycerides Level 66 Cholesterol Level 137 LDL Cholesterol 67 HDL Cholesterol 56.6 Cholesterol/HDL Ratio 2.42 (Gianna Urban) Result Diagram: 01/16/17 0416 A/P Diagnosis: (1) Hyponatremia (2) COPD (chronic obstructive pulmonary disease) (3) Depression (4) Schizophrenia (5) HTN (hypertension) Assessment and Plan Thank you for this consultation, we will assist with medical management 51-year-old female with history of schizophrenia and previous admissions to psychiatric unit, presented to emergency room with altered mental status, patient was not acting herself and was more delusional and aggressive. Evaluated in emergency room and found hyponatremic. She was treated medically, put on fluid restriction, hyponatremia now resolving. She was transferred to psychiatric unit for further care. Hyponatremia, now resolving, sodium 135 -Continue with psychotropic agents -Discontinue fluid restriction Schizophrenia, recurrent, patient paranoid Continue psychotropic agents Psychiatric following COPD, stable Duo nebs as needed for any shortness of breath Hypertension, stable Continue home medications Seizure disorder Monitor for seizures Seizure precautions Home medications reviewed, some have been initiated Thank you this consultation, hyponatremia appears to have resolved. We will sign off for now, reconsult if needed This patient was seen by myself and Dr. Logan, this consultation is written on his behalf (Gianna Urabn) Assessment and Plan Patient was seen and examined on the floor with RN at bedside. Late signing because of computer problem. medication labs and notes reviewed Plan of care was discussed with CLINICAL PROVIDER TRAINER Discussed with nurse Is cussed with patient (Yehuda Logan MD) Problem Qualifiers (1) COPD (chronic obstructive pulmonary disease): Qualified Code: J44.9 - Chronic obstructive pulmonary disease, unspecified COPD type (2) Depression: Qualified Code: F32.9 - Depression, unspecified depression type (3) Schizophrenia: Qualified Code: F20.9 - Schizophrenia, unspecified type (4) HTN (hypertension): Qualified Code: I10 - Essential hypertension Gianna Urban January 16, 2017 13:38 Yehuda Logan MD January 17, 2017 10:50
[2017-01-16] MEDS ORDERED: RESP: ALBUTEROL 2.5 MG/IPRATROPIUM 0.5 MG NEB (PRN) NEB (13:45)
[2017-01-16] MEDS: REMOVE OLD NICOTINE PATCH T-DERMAL SCH (21:00)
[2017-01-16] MEDS: PRAVASTATIN SOD 20 MG TAB PO SCH (22:30)
[2017-01-16] MEDS: QUEtiapine FUMARATE 100 MG TAB PO SCH (22:30)
[2017-01-17 05:43] VITALS: BP 144/88; PULSE 80; RESP 16; TEMP 98.1; O2SAT 95
[2017-01-17] MEDS: NICOTINE 21 MG/24 HR PATCH T-DERMAL SCH (09:00)
[2017-01-17] MEDS: OXcarbazepine 300 MG TAB PO SCH ×2 (09:11→20:15)
[2017-01-17] MEDS: ESCITALOPRAM OXALATE 20 MG TAB PO SCH (09:11)
[2017-01-17] MEDS: DIVALPROEX SODIUM E.R. 500 MG TAB PO SCH ×2 (09:11→20:14)
[2017-01-17 10:42] LABS: HEMOGLOBIN A1a 1.1 %; HEMOGLOBIN A1b 1.8 %; HEMOGLOBIN Ao 84.5 %; HEMOGLOBIN P3 4.1 %
--- NOTE | 2017-01-17 10:54 | HHI.PR ---
Subjective Remarks Lying on bed without any apparent distress Complain of some mild cramps in lower legs. No other complaint Review of system for 10 point system otherwise unremarkable Objective Objective Results - Vital Signs Date Time Temp Pulse Resp B/P Pulse Ox O2 Delivery O2 Flow Rate FiO2 01/17/17 05:43 98.1 80 16 144/88 95 I/O 01/16/17 01/16/17 01/16/17 01/17/17 01/17/17 01/17/17 06:59 14:59 22:59 06:59 14:59 22:59 Intake Total 0 ml 240 ml 1320 ml 0 ml Balance 0 ml 240 ml 1320 ml 0 ml Intake Oral 0 ml 240 ml 1320 ml 0 ml # Voids 0 6 1 # Bowel Movements 0 Result Diagram: 01/16/17 0416 Physical Exam Physical Exam GENERAL: This is a well-nourished, well-developed patient, in no apparent distress. Lying on bed SKIN: No rashes, ecchymoses or lesions. Cool and dry. HEAD: Atraumatic. Normocephalic. No temporal or scalp tenderness. EYES: Pupils equal round and reactive. Extraocular motions intact. No scleral icterus. No injection or drainage. ENT: Nose without bleeding, purulent drainage or septal hematoma. Throat without erythema, tonsillar hypertrophy or exudate. Uvula midline. Airway patent. Poor dentition. NECK: Trachea midline. No JVD or lymphadenopathy. Supple, nontender, no meningeal signs. CARDIOVASCULAR: Regular rate and rhythm without murmurs, gallops, or rubs. RESPIRATORY: Clear to auscultation. Breath sounds equal bilaterally. No wheezes , rales, or rhonchi. GASTROINTESTINAL: Abdomen soft, non-tender, nondistended. No hepato-splenomegaly , or palpable masses. No guarding. MUSCULOSKELETAL: Extremities without clubbing, cyanosis, or edema. No joint tenderness, effusion, or edema noted. No calf tenderness. Negative Homans sign bilaterally. NEUROLOGICAL: Awakes to voice, oriented 3. Following commands, no focal deficits. Calm A/P Assessment and Plan (1) Hyponatremia (2) COPD (chronic obstructive pulmonary disease) (3) Depression (4) Schizophrenia (5) HTN (hypertension) Plan 51-year-old female with history of schizophrenia and previous admissions to psychiatric unit, presented to emergency room with altered mental status, patient was not acting herself and was more delusional and aggressive. Evaluated in emergency room and found hyponatremic. She was treated medically, put on fluid restriction, hyponatremia now resolving. She was transferred to psychiatric unit for further care. Hyponatremia, now resolving, sodium 135 -Continue with psychotropic agents -Off of IV fluids Schizophrenia, recurrent, patient paranoid Continue psychotropic agents Psychiatric following COPD, overall stable Duo nebs as needed for any shortness of breath Hypertension, overall stable Continue home medications Seizure disorder Monitor for seizures Seizure precautions Home medications reviewed, some have been initiated Plan for BMP mag level tomorrow Discussed with patient Yehuda Logan MD January 17, 2017 10:54
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
[2017-01-17] MEDS: QUEtiapine FUMARATE 100 MG TAB PO SCH (20:14)
[2017-01-17] MEDS: PRAVASTATIN SOD 20 MG TAB PO SCH (20:14)
[2017-01-17] MEDS: REMOVE OLD NICOTINE PATCH T-DERMAL SCH (20:15)
[2017-01-17 20:19] VITALS: BP 116/64; PULSE 85; RESP 16; TEMP 96.9; O2SAT 96
[2017-01-18 05:29] VITALS: BP 137/75; PULSE 78; RESP 18; TEMP 97.5
[2017-01-18] MEDS: DIVALPROEX SODIUM E.R. 500 MG TAB PO SCH ×2 (08:56→22:17)
[2017-01-18] MEDS: OXcarbazepine 300 MG TAB PO SCH ×2 (08:57→22:17)
[2017-01-18] MEDS: ESCITALOPRAM OXALATE 20 MG TAB PO SCH (08:57)
[2017-01-18] MEDS: NICOTINE 21 MG/24 HR PATCH T-DERMAL SCH (08:59)
--- NOTE | 2017-01-18 13:51 | HHI.PR ---
Subjective Remarks Lying on bed without any apparent distress Complaint of some mild cramps in lower legs. feeling tired some no n/v no headach no chest pain no sob No other complaint Review of system for 10 point system otherwise unremarkable Objective Objective Results - Vital Signs Date Time Temp Pulse Resp B/P Pulse Ox O2 Delivery O2 Flow Rate FiO2 01/18/17 05:29 97.5 78 18 137/75 01/17/17 20:19 96.9 85 16 116/64 96 I/O 01/17/17 01/17/17 01/17/17 01/18/17 01/18/17 01/18/17 07:00 15:00 23:00 07:00 15:00 23:00 Intake Total 0 ml 530 ml 0 ml 240 ml Balance 0 ml 530 ml 0 ml 240 ml Intake Oral 0 ml 530 ml 0 ml 240 ml # Voids 1 1 1 Result Diagram: 01/16/17 0416 Physical Exam Physical Exam GENERAL: This is a well-nourished, well-developed patient, in no apparent distress. Lying on bed SKIN: No rashes, ecchymoses or lesions. Cool and dry. HEAD: Atraumatic. Normocephalic. No temporal or scalp tenderness. EYES: Pupils equal round and reactive. Extraocular motions intact. No scleral icterus. No injection or drainage. ENT: Airway patent. Poor dentition. NECK: Trachea midline. No JVD or lymphadenopathy. Supple, nontender, no meningeal signs. CARDIOVASCULAR: Regular rate and rhythm without murmurs, gallops, or rubs. RESPIRATORY: Clear to auscultation. Breath sounds equal bilaterally. No wheezes , rales, or rhonchi. GASTROINTESTINAL: Abdomen soft, non-tender, nondistended. No hepato-splenomegaly , or palpable masses. No guarding. MUSCULOSKELETAL: Extremities without clubbing, cyanosis, or edema. No joint tenderness, effusion, or edema noted. No calf tenderness. Negative Homans sign bilaterally. NEUROLOGICAL: Awakes to voice, oriented 3. Following commands, no focal deficits. Calm A/P Assessment and Plan (1) Hyponatremia (2) COPD (chronic obstructive pulmonary disease) (3) Depression (4) Schizophrenia (5) HTN (hypertension) Plan 51-year-old female with history of schizophrenia and previous admissions to psychiatric unit, presented to emergency room with altered mental status, patient was not acting herself and was more delusional and aggressive. Evaluated in emergency room and found hyponatremic. She was treated medically, put on fluid restriction, hyponatremia now resolving. She was transferred to psychiatric unit for further care. Hyponatremia, now resolving, sodium 135 -Continue with psychotropic agents -Off of IV fluids - bmp in am Schizophrenia, recurrent, patient paranoid Continue psychotropic agents Psychiatric following COPD, overall stable Duo nebs as needed for any shortness of breath Hypertension, overall stable Continue home medications Seizure disorder Monitor for seizures Seizure precautions Mg level in am Home medications reviewed, some have been initiated Discussed with patient Yehuda Logan MD January 18, 2017 13:51
--- NOTE | 2017-01-18 16:30 | HHI.PYPN ---
Subjective Remarks Patient seen in day room with nurse Jesse, patient continues psychotic delusional intense and intrusive. Little insight. Will increase Seroquel by adding 50 mg in a.m. Review of Systems Except as stated in HPI: all other systems reviewed are Neg Objective Alert: Yes [place]: Person, Place, Date Mood: Depressed Affect: Restricted Memory Intact: Comment (no formally assessed) Hallucinations: Other (patient denies visual and auditory hallucinations) Delusions: Yes Delusion Type: Paranoid Suicidal: Ideation (she reports suicidal ideation, no plan) Homicidal: Ideation (denies HI) Insight/Judgment Very poor Vitals/IOs Vital Signs Date Time Temp Pulse Resp B/P Pulse Ox O2 Delivery O2 Flow Rate FiO2 01/18/17 05:29 97.5 78 18 137/75 01/17/17 20:19 96 Intake and Output 01/17/17 01/17/17 01/17/17 07:59 15:59 23:59 Intake Total 0 ml 50 ml 480 ml Balance 0 ml 50 ml 480 ml Assessment & Plan Problem List: (1) PARANOID SCHIZOPHRENIA ICD Code: F20.0 (2) Hyponatremia ICD Code: E87.1 Assessment & Plan Estimated LOS: days patient remained psychotic confused recently medication adjustment above Justification for Cont. Inpt. At this time patient will decompensate with placed in a lower level of care Discharge Planning To be determined Request HC Surrog/Guard Advoc?: Kt Love MD January 18, 2017 16:30
[2017-01-18 19:38] VITALS: BP 114/69; PULSE 76; RESP 18; TEMP 98.1; O2SAT 95
[2017-01-18] MEDS: REMOVE OLD NICOTINE PATCH T-DERMAL SCH (21:00)
[2017-01-18] MEDS: QUEtiapine FUMARATE 100 MG TAB PO SCH (22:17)
[2017-01-18] MEDS: PRAVASTATIN SOD 20 MG TAB PO SCH (22:18)
[2017-01-19 05:11] VITALS: BP 141/71; PULSE 73; RESP 15; TEMP 97.6; O2SAT 94
[2017-01-19 07:54] LABS: BICARBONATE 32.1 MEQ/L (21.0-32.0); MAGNESIUM 2.2 MG/DL (1.5-2.5); POTASSIUM 4.3 MEQ/L (3.5-5.1)
[2017-01-19] MEDS: NICOTINE 21 MG/24 HR PATCH T-DERMAL SCH (09:00)
[2017-01-19] MEDS: QUEtiapine FUMARATE 25 MG TAB PO SCH (09:13)
[2017-01-19] MEDS: ESCITALOPRAM OXALATE 20 MG TAB PO SCH (09:14)
[2017-01-19] MEDS: DIVALPROEX SODIUM E.R. 500 MG TAB PO SCH ×2 (09:14→21:01)
[2017-01-19] MEDS: OXcarbazepine 300 MG TAB PO SCH ×2 (09:14→21:05)
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
--- NOTE | 2017-01-19 15:48 | HHI.PR ---
Subjective Remarks up ambulating in [place] alert, cooperative generalized musculat aches,/neck afebrile appetite good (Kirsten Tomas) Objective Objective Results - Vital Signs Date Time Temp Pulse Resp B/P Pulse Ox O2 Delivery O2 Flow Rate FiO2 01/19/17 05:11 97.6 73 15 141/71 94 01/18/17 19:38 98.1 76 18 114/69 95 I/O 01/18/17 01/18/17 01/18/17 01/19/17 01/19/17 01/19/17 07:00 15:00 23:00 07:00 15:00 23:00 Intake Total 0 ml 240 ml 3030 ml Balance 0 ml 240 ml 3030 ml Intake Oral 0 ml 240 ml 3030 ml # Voids 1 1 2 (Kirsten Tomas) Result Diagram: 01/19/17 0609 ROS General: Other (10 point ROS done. Positives noted, other systems negative) Neuro/MS: Other (muscle aches. better with ambulation) (Kirsten Tomas) Physical Exam Physical Exam PHYSICAL EXAMINATION GENERAL: This is a well-developed, slim female who appears to be in no acute distress. She is alert and awake, ansers appropriately HEAD: Normocephalic Facial features appear symmetric. dental caries. OROPHARYNGEAL: Oropharynx without erythema or edema. NECK: Supple. No nuchal rigidity or lymphadenopathy. Trachea midline without deviation. CARDIAC: Regular rhythm, regular rate, S1 and S2 are heard. LUNGS: Clear to auscultation bilaterally. no wheeze, no rhonchi ABDOMEN: Soft, nontender, no organomegaly or masses. Bowel sounds are heard in all four quadrants. No rebound. No guarding. EXTREMITIES: no edema. Pulses equal bilateral. no cyanosis. NEUROLOGICAL: Patient mood and affect appropriate. No focal deficit SKIN:Warm and moist Objective Remarks Im doing ok. I have bruises on my legs sometimes (Kirsten Tomas) A/P Assessment and Plan Hyponatremia, decreased again -Continue with psychotropic agents Limit water/fluid intake to 1.5L Schizophrenia, recurrent,stable for now Continue psychotropic agents Psychiatric following COPD, stable Duo nebs as needed for any shortness of breath Hypertension, stable Seizure disorder Monitor for seizures Seizure precautions Bowel regimen D/W Dr. Logan, seen on his behalf D/W patient (Kirsten Tomas) Assessment and Plan pt seen andexamined as above labs reviwed plan of care dw internal affairs investigator will monitor dw pt (Yehuda Logan MD) Kirsten Tomas January 19, 2017 15:48 Yehuda Logan MD January 19, 2017 16:18
[2017-01-19 19:34] VITALS: BP 112/68; PULSE 83; RESP 16; TEMP 97.6; O2SAT 96
[2017-01-19] MEDS: REMOVE OLD NICOTINE PATCH T-DERMAL SCH (21:00)
[2017-01-19] MEDS: QUEtiapine FUMARATE 100 MG TAB PO SCH (21:01)
[2017-01-19] MEDS: PRAVASTATIN SOD 20 MG TAB PO SCH (21:05)
[2017-01-20 05:37] VITALS: BP 105/56; PULSE 62; RESP 16; TEMP 97.6; O2SAT 93
[2017-01-20 08:21] LABS: BICARBONATE 29.7 MEQ/L (21.0-32.0); POTASSIUM 4.3 MEQ/L (3.5-5.1)
[2017-01-20] MEDS: OXcarbazepine 300 MG TAB PO SCH (09:00)
[2017-01-20] MEDS: ESCITALOPRAM OXALATE 20 MG TAB PO SCH (09:00)
[2017-01-20] MEDS: NICOTINE 21 MG/24 HR PATCH T-DERMAL SCH (09:00)
[2017-01-20] MEDS: QUEtiapine FUMARATE 25 MG TAB PO SCH (09:00)
[2017-01-20] MEDS: DIVALPROEX SODIUM E.R. 500 MG TAB PO SCH (09:00)
[2017-01-20] MEDS ORDERED: PRAV20TA PO (10:03)
[2017-01-20] MEDS ORDERED: DEPA500T3 PO (10:03)
[2017-01-20] MEDS ORDERED: SERO200T PO (10:03)
[2017-01-20] MEDS ORDERED: SERO50TA PO (10:03)
[2017-01-20] MEDS ORDERED: IPRASOL NEB (10:03)
[2017-01-20] MEDS ORDERED: OXCA300T PO (10:03)
[2017-01-20] MEDS ORDERED: ESCI20TA PO (10:03)
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
== END 2017-01-20 14:00 | DRG 885 ==
LOC: H4EA 17:52 → H250 01-16 17:00
PROVIDERS: ADMIT Psychiatry & Neurology Psychiatry; ATTEND Psychiatry & Neurology Psychiatry
DX: F20.0 Paranoid schizophrenia (principal); E87.1 Hypo-osmolality and hyponatremia; R45.851 Suicidal ideations; I10 Essential (primary) hypertension; J44.9 Chronic obstructive pulmonary disease, unspecified; F41.9 Anxiety disorder, unspecified; G43.909 Migraine, unspecified, not intractable, without status migrainosus; G40.909 Epilepsy, unspecified, not intractable, without status epilepticus; Z87.891 Personal history of nicotine dependence
CPT/HCPCS: 80048; 80061; 83036; 83735

== ENCOUNTER 2017-02-25 12:28 | Inpatient (IN) | payer MEDICARE, MEDICAID ==
[~2017-02-25] VITALS: Ht 167.6 cm; Wt 64.7 kg
[~2017-02-25 12:28] MED LIST changes: -FLUP1INJ IM; +IPRASOL NEB; -LACT10SO PO; -METO25TA3 PO; +PRAV20TA PO; -QUET1TAB7 PO; +SERO200T PO; +SERO50TA PO
[2017-02-25 12:30] VITALS: BP 176/96; PULSE 80; RESP 18; TEMP 97.7; O2SAT 94
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
[2017-02-25] MEDS ORDERED: METO25TA3 PO (14:29)
[2017-02-25] MEDS ORDERED: LACT10SO5 PO (14:29)
[2017-02-25] MEDS ORDERED: SYMB80AE INH (14:43)
[2017-02-25] MEDS ORDERED: OLAN5TAB PO (14:43)
[2017-02-25] MEDS ORDERED: TRIA1MIS TOPICAL (14:43)
[2017-02-25] MEDS ORDERED: CETI-1 PO (14:43)
[2017-02-25 15:07] LABS: AUTOMATED NEUTROPHIL # 4.1 TH/MM3 (1.8-7.7); BASOPHIL % 0.4 % (0.0-2.0); EOSINOPHIL % 0.3 % (0.0-4.0); HEMATOCRIT 38.8 % (35.0-46.0); HEMO FLAGS DIFF FINAL; LYMPH % 19.6 % (9.0-44.0); LYMPHOCYTE # 1.1 TH/MM3 (1.0-4.8); MEAN CELL VOLUME 94.7 FL (80.0-100.0); MEAN CORPUSCULAR HEMOGLOBIN 32.2 PG (27.0-34.0); MONO % 8.8 % (0.0-8.0); NEUT % 70.9 % (16.0-70.0); PLATELET COUNT 255 TH/MM3 (150-450); RED BLOOD COUNT 4.09 MIL/MM3 (4.00-5.30); RED CELL DISTRIBUTION WIDTH 13.9 % (11.6-17.2); WHITE BLOOD COUNT 5.7 TH/MM3 (4.0-11.0)
[2017-02-25 15:17] LABS: AMPHETAMINE, URINE NEG (NEG); BARBITURATES, URINE NEG (NEG); COCAINE, URINE NEG (NEG)
[2017-02-25 15:18] LABS: BACTERIA, URINE RARE /hpf; BLOOD, URINE NEG (NEG); COMMENT (UR) CULT NOT INDICATED; CULTURE IF INDICATED CULT NOT INDICATED; GLUCOSE,URINE NEG (NEG); KETONE, URINE NEG (NEG); NITRITE,URINE NEG (NEG); PH, URINE 7.5 (5.0-8.5); SQUAMOUS EPITHELIAL CELL URINE 1 /hpf (0-5); URINE COLOR LIGHT-YELLOW (YELLW/STRAW)
[2017-02-25 15:35] LABS: ALT (GPT) 19 U/L (10-53); ANION GAP 9 MEQ/L (5-15); AST (GOT) 16 U/L (15-37); BICARBONATE 25.9 MEQ/L (21.0-32.0); BLOOD UREA NITROGEN 10 MG/DL (7-18); CHLORIDE 93 MEQ/L (98-107); GLOMERULAR FILTRATION RATE 105 ML/MIN (>89); POTASSIUM 4.6 MEQ/L (3.5-5.1); SODIUM (NA) 128 MEQ/L (136-145)
[2017-02-25 15:38] LABS: ALKALINE PHOSPHATASE 90 U/L (45-117); TOTAL BILIRUBIN ADULT 0.3 MG/DL (0.2-1.0)
[2017-02-25] MEDS ORDERED: MACR100C2 PO (15:52)
[2017-02-25] MEDS ORDERED: LACTULOSE SYRUP 20 GM/30 ML CUP PO ONE (16:00)
[2017-02-25] MEDS ORDERED: NITROFURANTOIN MONOHYD MACROCR 100 MG CAP PO ONE (16:00)
[2017-02-25] MEDS ORDERED: SODIUM CHLOR 0.9% 1000 ML INJ 1,000 ML IV ONE (16:00)
[2017-02-25 17:00] VITALS: BP 130/69; PULSE 81; RESP 17; O2SAT 97
[2017-02-25 18:30] VITALS: BP 116/63; PULSE 70; RESP 20; O2SAT 95
[2017-02-26 02:00] VITALS: BP 122/72; PULSE 88; RESP 18; O2SAT 95
[2017-02-26 06:17] VITALS: BP 109/64; PULSE 67; RESP 19; O2SAT 93
[2017-02-26 10:05] VITALS: BP 97/58; PULSE 86; RESP 18
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
[2017-02-26] MEDS ORDERED: ALUMINUM/MAGNESIUM/SIMETH 30 ML CUP PO PRN (11:00)
[2017-02-26] MEDS ORDERED: MAGNESIUM HYDROXIDE SUSP 30 ML CUP PO PRN (11:00)
[2017-02-26] MEDS ORDERED: ACETAMINOPHEN 325 MG TAB PO PRN (11:00)
[2017-02-26 14:29] VITALS: BP 118/65; PULSE 89; RESP 18; TEMP 97.1; O2SAT 96
[2017-02-26] MEDS: LACTULOSE SYRUP 20 GM/30 ML CUP PO SCH ×3 (15:20→21:39)
[2017-02-26] MEDS: OLANZapine 5 MG TAB PO SCH (15:20)
[2017-02-26] MEDS: NITROFURANTOIN MONOHYD MACROCR 100 MG CAP PO SCH (21:39)
[2017-02-26] MEDS: OXcarbazepine 300 MG TAB PO SCH (21:39)
[2017-02-26] MEDS: QUEtiapine FUMARATE 100 MG TAB PO SCH (21:40)
[2017-02-26] MEDS: PRAVASTATIN SOD 20 MG TAB PO SCH (21:40)
[2017-02-26] MEDS: DIVALPROEX SODIUM E.R. 500 MG TAB PO SCH (21:40)
[2017-02-26] MEDS: METOPROLOL TARTRATE 25 MG TAB PO SCH (21:40)
[2017-02-26] MEDS: BUDESONIDE-FORMOTEROL 80/4.5 MCG INHALER INH SCH (21:51)
[2017-02-27 05:30] VITALS: BP 127/78; PULSE 67; RESP 20; TEMP 97.2; O2SAT 94
[2017-02-27] MEDS: ESCITALOPRAM OXALATE 20 MG TAB PO SCH (08:31)
[2017-02-27] MEDS: NITROFURANTOIN MONOHYD MACROCR 100 MG CAP PO SCH ×2 (08:31→20:46)
[2017-02-27] MEDS: OLANZapine 5 MG TAB PO SCH (08:32)
[2017-02-27] MEDS: METOPROLOL TARTRATE 25 MG TAB PO SCH ×2 (08:32→20:46)
[2017-02-27] MEDS: DIVALPROEX SODIUM E.R. 500 MG TAB PO SCH ×2 (08:33→20:46)
[2017-02-27] MEDS: CETIRIZINE HCL 10 MG TAB PO SCH (08:33)
[2017-02-27] MEDS: OXcarbazepine 300 MG TAB PO SCH ×2 (08:33→20:46)
[2017-02-27] MEDS: LACTULOSE SYRUP 20 GM/30 ML CUP PO SCH ×4 (08:34→20:46)
[2017-02-27] MEDS: BUDESONIDE-FORMOTEROL 80/4.5 MCG INHALER INH SCH ×2 (08:37→20:49)
[2017-02-27] MEDS ORDERED: PNEUMOCOCCAL POLYVALENT INJ 25 MCG/0.5 ML SYR IM ONE (10:00)
[2017-02-27] MEDS ORDERED: INFLUENZA VIRUS VACCINE (QUADRIVALENT) 0.5 ML SYR IM ONE (10:00)
[2017-02-27 10:54] LABS: ANION GAP 9 MEQ/L (5-15); BICARBONATE 23.5 MEQ/L (21.0-32.0); BLOOD UREA NITROGEN 12 MG/DL (7-18); CHLORIDE 102 MEQ/L (98-107); GLOMERULAR FILTRATION RATE 116 ML/MIN (>89); SODIUM (NA) 134 MEQ/L (136-145)
[2017-02-27 10:56] LABS: HDL CHOLESTEROL 65.2 MG/DL (40.0-60.0); LDL CHOLESTEROL 46 MG/DL (0-99)
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
[2017-02-27] MEDS ORDERED: RESP: ALBUTEROL 2.5 MG/IPRATROPIUM 0.5 MG NEB (PRN) NEB (15:45)
--- NOTE | 2017-02-27 15:56 | MB ---
cc: SEBASTIEN LOGAN DATE OF CONSULTATION: 02/27/2017 REASON FOR CONSULTATION: Assist in medical management. ADMITTING DOCTOR: Dr. Faye. CONSULTING DOCTOR: Dr. Sebastien Logan. HISTORY OF PRESENT ILLNESS: The patient is a 51-year female with significant past history of schizophrenia who was admitted last time because of hyponatremia. The patient also has a history of COPD, tobacco abuse, and respiratory failure in the past. The patient resides in the [facility]. The patient was brought to the ER and was evaluated by the ER physician and admitted to the psychiatric unit because of schizophrenia. At present, the patient is seen in her room with the nurse at the bedside. The patient denies any complaints. The patient is talkative and she is mostly talking uninterruptedly and some drawn and has what seems like tangential thoughts as well. She denies any headache, dizziness, nausea, vomiting, chest pain, diaphoresis, palpitations, cough, fever, chills, abdominal pain. She has no other symptoms. PAST MEDICAL HISTORY: 1. Anxiety. 2. Schizophrenia. 3. COPD. 4. Migraines. 5. Hyponatremia in the past. 6. Respiratory insufficiency in the past. 7. Anemia. 8. Questionable seizure disorder. MEDICATIONS: Reviewed, please see the MAR. ALLERGIES: THE PATIENT HAS ALLERGY CODED : HALDOL. REVIEW OF SYSTEMS: The review of systems is as described above in the history of present illness and is negative for ten systems. SOCIAL HISTORY: The patient is smokes and as per patient she had quit five months ago. She denies drinking or doing any drugs. FAMILY HISTORY: Does not know much about her family history. PHYSICAL EXAMINATION: GENERAL: The patient is alert and oriented times three, well-built and well-nourished lying on the bed without any apparent distress. VITAL SIGNS: The vitals show the patient is afebrile, pulse is 67, respiratory rate is 20, blood pressure 127/78, pulse is 94% on room air. HEAD, EYES, EARS, NOSE, THROAT: Head is normocephalic and atraumatic. Eyes - negative conjunctival icterus. Mouth has malpositioned dentition. No sore throat. NECK: The neck is supple. No increased jugular venous distention. Negative thyromegaly. Central trachea. RESPIRATORY SYSTEM: Chest clear to auscultation. CARDIOVASCULAR: S1 and S2 audible. Unable to hear any S3 gallop. GASTROINTESTINAL: Abdomen soft and nontender. No organomegaly. Positive bowel sounds. MUSCULOSKELETAL: Extremities have no cyanosis or pedal edema appreciated. No calf tenderness. CENTRAL NERVOUS SYSTEM: Alert and oriented. Normal facial features. Normal speech. Moving all extremities. INVESTIGATIONS: CBC within normal limits. BMP shows sodium 134 otherwise within normal limits. AST is 65.2. Urinalysis shows urine leukocyte esterase large, RBCs 7, WBCs 6, squamous epithelial cells 1, amorphous sedimentation rare and bacteria rare. Urine drug screen is negative. Ethyl alcohol is less than 3. ____ 1157. ASSESSMENT: 1. Schizophrenia. 2. COPD. 3. Urinary tract infection. 4. Hypertension. 5. Anxiety. 6. History of seizure disorder. 7. History of hyponatremia in the past. PLAN: 1. Antibiotic short course for the urinary tract infection. 2. Continue home medications as indicated. 3. Monitor for hyponatremia from time to time. 4. Psychiatric medications as per psychiatrist. 5. Breathing treatments on a p.r.n. basis for wheezing. 6. Monitor blood pressure. 7. Monitor for seizures. 8. Encourage ambulation. Discussed with the patient. Discussed with the R.N. Thank you, Dr. Faye, for the consultation. We will follow with you. Sebastien Logan MD JP/AALIYAH /3:32 PM /3:43 PM pt seen and examined yesterday with inpatient nursing aide and rn at bedside chart was reviwed meds labs and notes were reviewed dw pt dw rn dw inpatient nursing aide about plan of care MTDD
[2017-02-27 17:55] VITALS: BP 115/76; PULSE 80; RESP 17; TEMP 98.3; O2SAT 97
[2017-02-27] MEDS: QUEtiapine FUMARATE 100 MG TAB PO SCH (20:46)
[2017-02-27] MEDS: PRAVASTATIN SOD 20 MG TAB PO SCH (20:46)
[2017-02-28 04:55] VITALS: BP 134/59; PULSE 67; RESP 16; TEMP 97.7; O2SAT 97
[2017-02-28] MEDS: BUDESONIDE-FORMOTEROL 80/4.5 MCG INHALER INH SCH ×2 (08:34→20:51)
[2017-02-28] MEDS: CETIRIZINE HCL 10 MG TAB PO SCH (08:35)
[2017-02-28] MEDS: OLANZapine 5 MG TAB PO SCH (08:35)
[2017-02-28] MEDS: NITROFURANTOIN MONOHYD MACROCR 100 MG CAP PO SCH ×2 (08:35→20:51)
[2017-02-28] MEDS: LACTULOSE SYRUP 20 GM/30 ML CUP PO SCH ×4 (08:35→20:52)
[2017-02-28] MEDS: DIVALPROEX SODIUM E.R. 500 MG TAB PO SCH ×2 (08:35→20:51)
[2017-02-28] MEDS: METOPROLOL TARTRATE 25 MG TAB PO SCH ×2 (08:35→20:51)
[2017-02-28] MEDS: ESCITALOPRAM OXALATE 20 MG TAB PO SCH (08:35)
[2017-02-28] MEDS: OXcarbazepine 300 MG TAB PO SCH ×2 (08:35→21:06)
[2017-02-28 10:18] LABS: BICARBONATE 29.9 MEQ/L (21.0-32.0); POTASSIUM 3.9 MEQ/L (3.5-5.1)
[2017-02-28 13:49] LABS: HEMOGLOBIN A1a 1.2 %; HEMOGLOBIN A1b 0.8 %; HEMOGLOBIN Ao 85.1 %; HEMOGLOBIN F 0.9 %; HEMOGLOBIN LA1C 1.9 %; HEMOGLOBIN P3 3.8 %
--- NOTE | 2017-02-28 15:17 | HHI.PR ---
Subjective Remarks in day rm talkative, no acute pain Objective Objective Results - Vital Signs Date Time Temp Pulse Resp B/P Pulse Ox O2 Delivery O2 Flow Rate FiO2 02/28/17 04:55 97.7 67 16 134/59 97 02/27/17 17:55 98.3 80 17 115/76 97 I/O 02/27/17 02/27/17 02/27/17 02/28/17 02/28/17 02/28/17 07:00 15:00 23:00 07:00 15:00 23:00 Intake Total 240 ml Balance 240 ml Intake Oral 240 ml Result Diagram: 02/25/17 1430 02/28/17 0851 ROS General: Other (10 point ROS reviewed.) Neuro/MS: Other (talkative) Physical Exam Physical Exam PHYSICAL EXAMINATION GENERAL: This is a female who appears to be in no acute distress. She is alert and awake, talkative HEAD: Normocephalic OROPHARYNGEAL: Oropharynx clear, dental caries NECK: Supple. Trachea midline without deviation. CARDIAC: Regular rhythm, regular rate, S1 and S2 are heard. LUNGS: Clear to auscultation bilaterally. ABDOMEN: Soft, nontender, no organomegaly or masses. Bowel sounds are heard in all four quadrants. No rebound. No guarding. EXTREMITIES: no edema. Pulses equal bilateral. NEUROLOGICAL: Patient mood upbeat, talkative. No focal deficit SKIN:Warm and moist A/P Assessment and Plan 1. Schizophrenia. 2. COPD. 3. Urinary tract infection. 4. Hypertension. 5. Anxiety. 6. History of seizure disorder. 7. History of hyponatremia in the past. Vital signs reviewed, normal trends for now Labs reviewed, mild hyponatremia sodium 133 Normal potassium 3.9 UTI, antibiotics by mouth for a short duration, by mouth Macrobid denies any retention or dysuria COPD dual nebs, as needed, NO SOB History of seizure disorders, no current seizures, monitor Psych meds and treatment regimen per psych team. Monitor her labs as needed Kirsten Tomas Feb 28, 2017 15:17
--- NOTE | 2017-02-28 15:52 | HHI.PYPN ---
Subjective Remarks Pt seen and discussed with staff. Pt has been isolative to her room, only coming out for meals. She remains paranoid and delusional. She was compliant with medications. No SI/HI. Objective Alert: Yes Isabella: Person, Place, Date, Situation Mood: Calm Affect: Restricted Memory Intact: Comment (not formally tetsed) Hallucinations: Other (Negative) Delusions: Yes Delusion Type: Paranoid Suicidal: Ideation (deneis any) Homicidal: Ideation (deneis any) Insight/Judgment poor Labs Test 02/28/17 08:51 Sodium Level 133 MEQ/L Potassium Level 3.9 MEQ/L Chloride Level 96 MEQ/L Carbon Dioxide Level 29.9 MEQ/L Anion Gap 7 MEQ/L Blood Urea Nitrogen 12 MG/DL Creatinine 0.70 MG/DL Estimat Glomerular Filtration 88 ML/MIN Rate Random Glucose 87 MG/DL Calcium Level 8.4 MG/DL Vitals/IOs Vital Signs Date Time Temp Pulse Resp B/P Pulse Ox O2 Delivery O2 Flow Rate FiO2 02/28/17 04:55 97.7 67 16 134/59 97 02/26/17 10:05 Room Air Intake and Output 02/27/17 02/27/17 02/28/17 08:00 16:00 00:00 Intake Total 240 ml Balance 240 ml Assessment & Plan Problem List: (1) Schizophrenia ICD Code: F20.9 Assessment & Plan Continue current tx plan. Estimated LOS: days Justification for Cont. Inpt. impairments in reality testing. Problem Qualifiers (1) Schizophrenia: Qualified Code: F20.0 - Paranoid schizophrenia Ivy Quiñonez MD Feb 28, 2017 15:51
[2017-02-28 18:26] VITALS: BP 116/73; PULSE 75; RESP 18; TEMP 98.3; O2SAT 94
[2017-02-28] MEDS: QUEtiapine FUMARATE 100 MG TAB PO SCH (20:50)
[2017-02-28] MEDS: PRAVASTATIN SOD 20 MG TAB PO SCH (20:50)
[2017-03-01] MEDS: DIVALPROEX SODIUM E.R. 500 MG TAB PO SCH ×2 (08:59→21:23)
[2017-03-01] MEDS: BUDESONIDE-FORMOTEROL 80/4.5 MCG INHALER INH SCH ×2 (08:59→21:00)
[2017-03-01] MEDS: OXcarbazepine 300 MG TAB PO SCH ×2 (09:00→21:23)
[2017-03-01] MEDS: ESCITALOPRAM OXALATE 20 MG TAB PO SCH (09:00)
[2017-03-01] MEDS: OLANZapine 5 MG TAB PO SCH (09:00)
[2017-03-01] MEDS: METOPROLOL TARTRATE 25 MG TAB PO SCH ×2 (09:00→21:00)
[2017-03-01] MEDS: NITROFURANTOIN MONOHYD MACROCR 100 MG CAP PO SCH ×2 (09:00→21:23)
[2017-03-01] MEDS: CETIRIZINE HCL 10 MG TAB PO SCH (09:00)
[2017-03-01] MEDS: LACTULOSE SYRUP 20 GM/30 ML CUP PO SCH ×4 (09:00→21:00)
--- NOTE | 2017-03-01 16:50 | HHI.PYPN ---
Subjective Remarks Patient seen in day room with medical student Jacob, patient continues somewhat intrusive loud disorganized showing no significant insight into her disease. Now question she wishes to go back to [facility]. For now continue treatment Review of Systems Except as stated in HPI: all other systems reviewed are Neg Objective Alert: Yes Conrad: Person, Place, Date, Situation Mood: Calm Affect: Restricted Memory Intact: Comment (not formally tetsed) Hallucinations: Other (Negative) Delusions: Yes Delusion Type: Paranoid Suicidal: Ideation (deneis any) Homicidal: Ideation (deneis any) Insight/Judgment Poor Vitals/IOs Vital Signs Date Time Temp Pulse Resp B/P Pulse Ox O2 Delivery O2 Flow Rate FiO2 02/28/17 18:26 98.3 75 18 116/73 94 02/26/17 10:05 Room Air Assessment & Plan Problem List: (1) Schizophrenia ICD Code: F20.9 Assessment & Plan Estimated LOS: days patient remains psychotic delusional no behavior problems, compliant medication Justification for Cont. Inpt. At this time patient will decompensate if placed in the lower level of care Discharge Planning To be determined Problem Qualifiers (1) Schizophrenia: Qualified Code: F20.0 - Paranoid schizophrenia Kt Bruce MD Mar 01, 2017 16:50
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
[2017-03-01 17:27] VITALS: BP 110/57; PULSE 60; RESP 17; TEMP 98.1; O2SAT 98
[2017-03-01] MEDS: PRAVASTATIN SOD 20 MG TAB PO SCH (21:23)
[2017-03-01] MEDS: QUEtiapine FUMARATE 100 MG TAB PO SCH (21:24)
[2017-03-02 06:09] VITALS: BP 139/89; PULSE 97; RESP 19; TEMP 98.5; O2SAT 96
[2017-03-02] MEDS: NITROFURANTOIN MONOHYD MACROCR 100 MG CAP PO SCH ×2 (09:36→20:03)
[2017-03-02] MEDS: DIVALPROEX SODIUM E.R. 500 MG TAB PO SCH ×2 (09:36→20:00)
[2017-03-02] MEDS: CETIRIZINE HCL 10 MG TAB PO SCH (09:36)
[2017-03-02] MEDS: OXcarbazepine 300 MG TAB PO SCH ×2 (09:36→20:04)
[2017-03-02] MEDS: OLANZapine 5 MG TAB PO SCH (09:36)
[2017-03-02] MEDS: BUDESONIDE-FORMOTEROL 80/4.5 MCG INHALER INH SCH ×2 (09:37→20:00)
[2017-03-02] MEDS: ESCITALOPRAM OXALATE 20 MG TAB PO SCH (09:37)
[2017-03-02] MEDS: LACTULOSE SYRUP 20 GM/30 ML CUP PO SCH ×2 (09:38→20:02)
[2017-03-02] MEDS: METOPROLOL TARTRATE 25 MG TAB PO SCH ×2 (09:38→20:02)
[2017-03-02 10:02] LABS: BICARBONATE 33.7 MEQ/L (21.0-32.0); POTASSIUM 4.4 MEQ/L (3.5-5.1)
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
[2017-03-02 15:26] VITALS: BP 104/63; PULSE 72; RESP 18; TEMP 97; O2SAT 95
--- NOTE | 2017-03-02 19:01 | HHI.PR ---
Subjective Remarks pt offeing no complaint feeling better ros for 10 point system is unremarkable Objective Objective Results - Vital Signs Date Time Temp Pulse Resp B/P Pulse Ox O2 Delivery O2 Flow Rate FiO2 03/02/17 15:26 97.0 72 18 104/63 95 03/02/17 06:09 98.5 97 19 139/89 96 Result Diagram: 03/02/17 0719 Other Results Laboratory Tests Test 03/02/17 07:19 Sodium Level 132 Potassium Level 4.4 Chloride Level 94 Carbon Dioxide Level 33.7 Anion Gap 4 Blood Urea Nitrogen 15 Creatinine 0.57 Estimat Glomerular Filtration 111 Rate Random Glucose 67 Calcium Level 8.5 Ammonia 45 Physical Exam Physical Exam General General Appearance: Well Developed, No Acute Distress, Comfortable Eyes Eye Exam: no icterus Ears & Nose Ears & Nose Exam: Nasal Mucosa [place] Throat Throat Exam: Oral Mucosa [place] & Moist Throat Remarks poor dentition Neck Neck Exam: Neck Supple, Trachea Midline Pulmonary Resp Exam: Clear Bilaterally Cardiology CV Exam: Normal Sinus Rhythm Gastrointestinal/Abdomen GI Exam: Soft, Non-Tender, Bowel Sounds Present, Non-Distended, Bowel Sounds Hyperactive Musculoskeletal MS Exam: Joints Intact Integumentary Skin Exam: Warm, Intact Extremeties Extremities Exam: No Edema, Pedal Pulses Palpable Neurologic Neuro Exam: Alert, Awake, Speech Clear, Moving All Extremities, No Focal Deficits A/P Assessment and Plan (1) Schizophrenia (2) Depression (3) COPD (chronic obstructive pulmonary disease) (4) Seizure disorder (5) UTI (urinary tract infection) (6) Hyponatremia Plan Na improving, poss induced by meds/ polydypsia . UTI, continue Macrobid, end date noted COPD, continue Symbicort. History of seizure disorders, no current seizures, monitor Psych meds and treatment regimen per psych team. Multiple stools reported, initial ammonia 57, on Lactulose QID ammonia level 45 dec. Lactulose to BID D/W pt Yehuda Logan MD Mar 02, 2017 19:01
[2017-03-02] MEDS: QUEtiapine FUMARATE 100 MG TAB PO SCH (20:03)
[2017-03-02] MEDS: PRAVASTATIN SOD 20 MG TAB PO SCH (20:03)
[2017-03-03] MEDS: NITROFURANTOIN MONOHYD MACROCR 100 MG CAP PO SCH ×2 (09:57→20:40)
[2017-03-03] MEDS: LACTULOSE SYRUP 20 GM/30 ML CUP PO SCH ×2 (09:57→20:41)
[2017-03-03] MEDS: METOPROLOL TARTRATE 25 MG TAB PO SCH ×2 (09:57→20:41)
[2017-03-03] MEDS: BUDESONIDE-FORMOTEROL 80/4.5 MCG INHALER INH SCH ×2 (09:57→20:42)
[2017-03-03] MEDS: ESCITALOPRAM OXALATE 20 MG TAB PO SCH (09:57)
[2017-03-03] MEDS: OXcarbazepine 300 MG TAB PO SCH ×2 (09:58→20:41)
[2017-03-03] MEDS: CETIRIZINE HCL 10 MG TAB PO SCH (09:58)
[2017-03-03] MEDS: DIVALPROEX SODIUM E.R. 500 MG TAB PO SCH ×2 (09:58→20:41)
[2017-03-03] MEDS: OLANZapine 10 MG TAB PO SCH (09:58)
--- NOTE | 2017-03-03 13:43 | HHI.PYPN ---
Subjective Remarks Patient seen in her room with nurse Brinda, patient laying in bed calm quiet continues focused on wanting to return to [facility] but not rooming with her present roommate. Counselor is checking to see if that is possible. Otherwise patient compliant medications denies suicidality homicidality voices or visions. For now continue treatment Review of Systems Except as stated in HPI: all other systems reviewed are Neg Objective Alert: Yes [place]: Person, Place, Date, Situation Mood: Calm Affect: Restricted Memory Intact: Comment (not formally tetsed) Hallucinations: Other (Negative) Delusions: Yes Delusion Type: Paranoid Suicidal: Ideation (deneis any) Homicidal: Ideation (deneis any) Insight/Judgment Poor Vitals/IOs Vital Signs Date Time Temp Pulse Resp B/P Pulse Ox O2 Delivery O2 Flow Rate FiO2 03/02/17 15:26 97.0 72 18 104/63 95 Assessment & Plan Problem List: (1) Schizophrenia ICD Code: F20.9 Assessment & Plan Estimated LOS: days patient continue somewhat psychotic and paranoid though softer. Still little insight. For now continue treatment Justification for Cont. Inpt. At this time patient will decompensate and placed in a lower level of care Discharge Planning To be determined Problem Qualifiers (1) Schizophrenia: Qualified Code: F20.0 - Paranoid schizophrenia Kt Bruce MD Mar 03, 2017 13:43
[2017-03-03 18:00] VITALS: BP 105/72; PULSE 71; RESP 18; TEMP 97.4; O2SAT 96
[2017-03-03 19:00] VITALS: BP 112/76; PULSE 66; RESP 20; TEMP 97.8; O2SAT 98
[2017-03-03] MEDS: PRAVASTATIN SOD 20 MG TAB PO SCH (20:41)
[2017-03-03] MEDS: QUEtiapine FUMARATE 100 MG TAB PO SCH (20:41)
[2017-03-04 05:49] VITALS: BP 146/86; PULSE 67; RESP 17; TEMP 97.1; O2SAT 97
[2017-03-04] MEDS: LACTULOSE SYRUP 20 GM/30 ML CUP PO SCH ×2 (09:37→21:29)
[2017-03-04] MEDS: ESCITALOPRAM OXALATE 20 MG TAB PO SCH (09:37)
[2017-03-04] MEDS: BUDESONIDE-FORMOTEROL 80/4.5 MCG INHALER INH SCH ×2 (09:37→21:28)
[2017-03-04] MEDS: CETIRIZINE HCL 10 MG TAB PO SCH (09:38)
[2017-03-04] MEDS: DIVALPROEX SODIUM E.R. 500 MG TAB PO SCH ×2 (09:38→21:29)
[2017-03-04] MEDS: METOPROLOL TARTRATE 25 MG TAB PO SCH ×2 (09:38→21:30)
[2017-03-04] MEDS: OXcarbazepine 300 MG TAB PO SCH ×2 (09:38→21:30)
[2017-03-04] MEDS: NITROFURANTOIN MONOHYD MACROCR 100 MG CAP PO SCH (09:38)
[2017-03-04] MEDS: OLANZapine 10 MG TAB PO SCH (09:38)
--- NOTE | 2017-03-04 15:25 | HHI.PYPN ---
Subjective Remarks Patient seen in her room with medical student Jacob, chart reviewed, patient compliant medication. Patient continues to be willing to return to [facility] though not with her present roommate. Referring to the roommate appears to give her some increased anxiety irritability and mild paranoia. For now continue treatment need to work with [facility] on placement Review of Systems Except as stated in HPI: all other systems reviewed are Neg Objective Alert: Yes [place]: Person, Place, Date, Situation Mood: Calm Affect: Restricted Memory Intact: Comment (not formally tetsed) Hallucinations: Other (Negative) Delusions: Yes Delusion Type: Paranoid Suicidal: Ideation (deneis any) Homicidal: Ideation (deneis any) Insight/Judgment Poor Vitals/IOs Vital Signs Date Time Temp Pulse Resp B/P Pulse Ox O2 Delivery O2 Flow Rate FiO2 03/04/17 05:49 97.1 67 17 146/86 97 Intake and Output 03/03/17 03/03/17 03/04/17 08:00 16:00 00:00 Intake Total 240 ml Balance 240 ml Assessment & Plan Problem List: (1) Schizophrenia ICD Code: F20.9 Assessment & Plan Estimated LOS: days patient remains somewhat psychotic and paranoid though softer, continue to work with placement issues Justification for Cont. Inpt. At this time patient will decompensate the placed in a lower level of care Discharge Planning To be determined Problem Qualifiers (1) Schizophrenia: Qualified Code: F20.0 - Paranoid schizophrenia Kt Bruce MD Mar 04, 2017 15:25
--- NOTE | 2017-03-04 16:10 | HHI.PR ---
Subjective Remarks pt offeing no complaint Sleeping on bed without any apparent distress feeling okay ros for 10 point system is unremarkable Objective Objective Results - Vital Signs Date Time Temp Pulse Resp B/P Pulse Ox O2 Delivery O2 Flow Rate FiO2 03/04/17 05:49 97.1 67 17 146/86 97 03/03/17 19:00 97.8 66 20 112/76 98 03/03/17 18:00 97.4 71 18 105/72 96 I/O 03/03/17 03/03/17 03/03/17 03/04/17 03/04/17 03/04/17 07:00 15:00 23:00 07:00 15:00 23:00 Intake Total 240 ml Balance 240 ml Intake Oral 240 ml Result Diagram: 03/02/17 0719 Physical Exam Physical Exam General General Appearance: Well Developed, No Acute Distress, Comfortable Eyes Eye Exam: no icterus Ears & Nose Ears & Nose Exam: Nasal Mucosa [place] Throat Throat Exam: Oral Mucosa [place] & Moist Throat Remarks poor dentition Neck Neck Exam: Neck Supple, Trachea Midline Pulmonary Resp Exam: Clear Bilaterally Cardiology CV Exam: Normal Sinus Rhythm Gastrointestinal/Abdomen GI Exam: Soft, Non-Tender, Bowel Sounds Present, Non-Distended, Bowel Sounds Hyperactive Musculoskeletal MS Exam: Joints Intact Integumentary Skin Exam: Warm, Intact Extremeties Extremities Exam: No Edema, Pedal Pulses Palpable Neurologic Neuro Exam: Alert, Awake, Speech Clear, Moving All Extremities, No Focal Deficits A/P Assessment and Plan (1) Schizophrenia (2) Depression (3) COPD (chronic obstructive pulmonary disease) (4) Seizure disorder (5) UTI (urinary tract infection) (6) Hyponatremia Plan Na improving, poss induced by meds/ polydypsia . UTI, continue Macrobid, end date noted COPD, continue Symbicort. History of seizure disorders, no current seizures, monitor Psych meds and treatment regimen per psych team. initial ammonia 57, on Lactulose QID ammonia level 45, dec. Lactulose to BID D/W pt Will follow on an as needed basis Yehuda Logan MD Mar 04, 2017 16:09
[2017-03-04 18:00] VITALS: BP 99/70; PULSE 75; RESP 18; TEMP 97.7; O2SAT 96
[2017-03-04] MEDS: PRAVASTATIN SOD 20 MG TAB PO SCH (21:30)
[2017-03-04] MEDS: QUEtiapine FUMARATE 100 MG TAB PO SCH (21:30)
[2017-03-05 06:05] VITALS: BP 110/65; PULSE 54; RESP 16; O2SAT 97
[2017-03-05] MEDS: METOPROLOL TARTRATE 25 MG TAB PO SCH ×2 (08:24→21:00)
[2017-03-05] MEDS: CETIRIZINE HCL 10 MG TAB PO SCH (08:34)
[2017-03-05] MEDS: LACTULOSE SYRUP 20 GM/30 ML CUP PO SCH ×2 (08:34→21:12)
[2017-03-05] MEDS: BUDESONIDE-FORMOTEROL 80/4.5 MCG INHALER INH SCH ×2 (08:34→21:12)
[2017-03-05] MEDS: OLANZapine 10 MG TAB PO SCH (08:34)
[2017-03-05] MEDS: ESCITALOPRAM OXALATE 20 MG TAB PO SCH (08:34)
[2017-03-05] MEDS: OXcarbazepine 300 MG TAB PO SCH ×2 (08:34→21:12)
[2017-03-05] MEDS: DIVALPROEX SODIUM E.R. 500 MG TAB PO SCH ×2 (08:34→21:12)
--- NOTE | 2017-03-05 15:56 | HHI.PYPN ---
Subjective Remarks Patient seen in [place] with counselor every night and medical student Jacob, patient continues calm cooperative focused on returning to [facility] but only if she has a new roommate. She otherwise denies suicidality homicidality voices or visions. For now continue treatment Review of Systems Except as stated in HPI: all other systems reviewed are Neg Objective Alert: Yes [place]: Person, Place, Date, Situation Mood: Calm Affect: Restricted Memory Intact: Comment (not formally tetsed) Hallucinations: Other (Negative) Delusions: Yes Delusion Type: Paranoid Suicidal: Ideation (deneis any) Homicidal: Ideation (deneis any) Insight/Judgment Poor Vitals/IOs Vital Signs Date Time Temp Pulse Resp B/P Pulse Ox O2 Delivery O2 Flow Rate FiO2 03/05/17 06:05 54 16 110/65 97 03/04/17 18:00 97.7 Assessment & Plan Problem List: (1) Schizophrenia ICD Code: F20.9 Assessment & Plan Estimated LOS: days patient psychosis is resolving, patient cooperative medication consider discharge next week if patient gets new roommate Justification for Cont. Inpt. At this time patient will decompensate the placed a lower level of care Discharge Planning To be determined Problem Qualifiers (1) Schizophrenia: Qualified Code: F20.0 - Paranoid schizophrenia Kt Bruce MD Mar 05, 2017 15:56
[2017-03-05 18:00] VITALS: BP 94/56; PULSE 84; RESP 16; TEMP 97.4; O2SAT 95
[2017-03-05] MEDS: QUEtiapine FUMARATE 100 MG TAB PO SCH (21:12)
[2017-03-05] MEDS: PRAVASTATIN SOD 20 MG TAB PO SCH (21:12)
[2017-03-06 06:08] VITALS: BP 122/67; PULSE 62; RESP 18; TEMP 98; O2SAT 95
[2017-03-06] MEDS: DIVALPROEX SODIUM E.R. 500 MG TAB PO SCH ×2 (08:18→21:13)
[2017-03-06] MEDS: CETIRIZINE HCL 10 MG TAB PO SCH (08:18)
[2017-03-06] MEDS: OXcarbazepine 300 MG TAB PO SCH ×2 (08:18→21:14)
[2017-03-06] MEDS: ESCITALOPRAM OXALATE 20 MG TAB PO SCH (08:18)
[2017-03-06] MEDS: LACTULOSE SYRUP 20 GM/30 ML CUP PO SCH ×2 (08:18→21:13)
[2017-03-06] MEDS: METOPROLOL TARTRATE 25 MG TAB PO SCH ×2 (08:18→21:14)
[2017-03-06] MEDS: OLANZapine 10 MG TAB PO SCH (08:18)
[2017-03-06] MEDS: BUDESONIDE-FORMOTEROL 80/4.5 MCG INHALER INH SCH ×2 (08:20→21:12)
--- NOTE | 2017-03-06 14:10 | HHI.PYPN ---
Subjective Remarks Patient was seen and case discussed with nursing. Patient is disheveled and disorganized. She remains perseverative on her roommate at [facility] focuses all of her answers on that. She is compliant with her medications and says she is sleeping well. Says she enjoys the patient's hair. She denies auditory visual hallucinations. Compliant with her medications. No aggressive behavior Objective Alert: Yes [place]: Person, Place, Date, Situation Mood: Calm Affect: Blunted Memory Intact: Comment (not formally tetsed) Hallucinations: Other (Negative) Delusions: Yes Delusion Type: Paranoid Suicidal: Ideation (deneis any) Homicidal: Ideation (deneis any) Insight/Judgment Poor Vitals/IOs Vital Signs Date Time Temp Pulse Resp B/P Pulse Ox O2 Delivery O2 Flow Rate FiO2 03/06/17 06:08 98.0 62 18 122/67 95 Assessment & Plan Problem List: (1) Schizophrenia ICD Code: F20.9 Assessment & Plan Continue current treatment plan Justification for Cont. Inpt. Patient would decompensate in a less restrictive setting Problem Qualifiers (1) Schizophrenia: Qualified Code: F20.0 - Paranoid schizophrenia Evans Redding DO Mar 06, 2017 14:10
[2017-03-06 18:14] VITALS: BP 113/65; PULSE 74; RESP 18; TEMP 96.4; O2SAT 99
[2017-03-06] MEDS: PRAVASTATIN SOD 20 MG TAB PO SCH (21:13)
[2017-03-06] MEDS: QUEtiapine FUMARATE 100 MG TAB PO SCH (21:14)
[2017-03-07 05:55] VITALS: BP 105/58; PULSE 62; RESP 16; TEMP 98.8; O2SAT 95
[2017-03-07] MEDS: ESCITALOPRAM OXALATE 20 MG TAB PO SCH (08:02)
[2017-03-07] MEDS: METOPROLOL TARTRATE 25 MG TAB PO SCH ×2 (08:02→20:38)
[2017-03-07] MEDS: OLANZapine 10 MG TAB PO SCH (08:02)
[2017-03-07] MEDS: OXcarbazepine 300 MG TAB PO SCH ×2 (08:02→20:38)
[2017-03-07] MEDS: DIVALPROEX SODIUM E.R. 500 MG TAB PO SCH ×2 (08:02→20:38)
[2017-03-07] MEDS: CETIRIZINE HCL 10 MG TAB PO SCH (08:02)
[2017-03-07] MEDS: BUDESONIDE-FORMOTEROL 80/4.5 MCG INHALER INH SCH ×2 (08:02→20:39)
[2017-03-07] MEDS: LACTULOSE SYRUP 20 GM/30 ML CUP PO SCH ×2 (08:03→20:38)
--- NOTE | 2017-03-07 16:13 | HHI.PYPN ---
Subjective Remarks Patient was seen and case discussed with nursing. Patient is pleasant and cooperative with exam. Behaving well on the unit. Remains perseverative on her discharge conditions with a roommate. Objective Alert: Yes [place]: Person, Place, Date, Situation Mood: Calm Affect: Restricted Memory Intact: Comment (not formally tetsed) Hallucinations: Other (Negative) Delusions: Yes Delusion Type: Paranoid Suicidal: Ideation (deneis any) Homicidal: Ideation (deneis any) Insight/Judgment Poor Vitals/IOs Vital Signs Date Time Temp Pulse Resp B/P Pulse Ox O2 Delivery O2 Flow Rate FiO2 03/07/17 05:55 98.8 62 16 105/58 95 Assessment & Plan Problem List: (1) Schizophrenia ICD Code: F20.9 Assessment & Plan Continue current treatment plan Justification for Cont. Inpt. Patient will decompensate in a less restrictive setting Problem Qualifiers (1) Schizophrenia: Qualified Code: F20.0 - Paranoid schizophrenia Evans Redding DO Mar 07, 2017 16:13
[2017-03-07 17:31] VITALS: BP 117/75; PULSE 79; RESP 18; TEMP 97.8; O2SAT 96
[2017-03-07] MEDS: PRAVASTATIN SOD 20 MG TAB PO SCH (20:38)
[2017-03-07] MEDS: QUEtiapine FUMARATE 100 MG TAB PO SCH (20:38)
[2017-03-08 06:06] VITALS: BP 104/55; PULSE 58; RESP 18; TEMP 97.9; O2SAT 97
[2017-03-08 08:19] VITALS: PULSE 64
[2017-03-08] MEDS: OLANZapine 10 MG TAB PO SCH (08:19)
[2017-03-08] MEDS: OXcarbazepine 300 MG TAB PO SCH (08:19)
[2017-03-08] MEDS: BUDESONIDE-FORMOTEROL 80/4.5 MCG INHALER INH SCH (08:19)
[2017-03-08] MEDS: ESCITALOPRAM OXALATE 20 MG TAB PO SCH (08:20)
[2017-03-08] MEDS: METOPROLOL TARTRATE 25 MG TAB PO SCH (08:20)
[2017-03-08] MEDS: CETIRIZINE HCL 10 MG TAB PO SCH (08:20)
[2017-03-08] MEDS: DIVALPROEX SODIUM E.R. 500 MG TAB PO SCH (08:20)
[2017-03-08] MEDS: LACTULOSE SYRUP 20 GM/30 ML CUP PO SCH (08:20)
[2017-03-08] MEDS ORDERED: Lactulose Liq PO (12:51)
[2017-03-08] MEDS ORDERED: METO25TA3 PO (12:51)
[2017-03-08] MEDS ORDERED: DEPA500T3 PO (12:51)
[2017-03-08] MEDS ORDERED: PRAV20TA PO (12:51)
[2017-03-08] MEDS ORDERED: ESCI20TA PO (12:51)
[2017-03-08] MEDS ORDERED: OLAN10TA PO (12:51)
[2017-03-08] MEDS ORDERED: CETI10 PO (12:51)
[2017-03-08] MEDS ORDERED: QUET1TAB8 PO (12:51)
[2017-03-08] MEDS ORDERED: SYMB80AE INH (12:51)
[2017-03-08] MEDS ORDERED: OXCA300T PO (12:51)
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
== END 2017-03-08 14:35 | DRG 885 ==
LOC: NEPD 12:28 → NEDA 02-26 11:04 → H260 02-26 12:40
PROVIDERS: ADMIT Psychiatry & Neurology Psychiatry; ATTEND Psychiatry & Neurology Psychiatry
DX: F20.0 Paranoid schizophrenia (principal); E87.1 Hypo-osmolality and hyponatremia; I10 Essential (primary) hypertension; N39.0 Urinary tract infection, site not specified; F32.9 Major depressive disorder, single episode, unspecified; J44.9 Chronic obstructive pulmonary disease, unspecified; G40.909 Epilepsy, unspecified, not intractable, without status epilepticus; F17.210 Nicotine dependence, cigarettes, uncomplicated; Z23 Encounter for immunization
CPT/HCPCS: 80048; 80053; 80061; 80164; 80307; 81001; 82140; 83036; 85025; 90686; 90732; 96360; J7030; Q2038

== ENCOUNTER 2017-04-02 12:43 | Inpatient (IN) | payer MEDICARE, MEDICAID, OTHER ==
[~2017-04-02] VITALS: Ht 172.7 cm; Wt 61.0 kg
[~2017-04-02 12:43] MED LIST changes: +CETI10 PO; -IPRASOL NEB; +LACT10SO5 PO; +Lactulose Liq PO; +MACR100C2 PO; +METO25TA3 PO; +OLAN10TA PO; +OLAN5TAB PO; -SERO200T PO; -SERO50TA PO; -SIMV10TA PO; +SYMB80AE INH; +TRIA1MIS TOPICAL
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
[2017-04-02 13:05] VITALS: BP 132/76; PULSE 93; RESP 15; TEMP 97.8; O2SAT 94
[2017-04-02 13:47] LABS: AUTOMATED NEUTROPHIL # 2.7 TH/MM3 (1.8-7.7); BASOPHIL % 0.6 % (0.0-2.0); EOSINOPHIL % 0.8 % (0.0-4.0); HEMATOCRIT 33.6 % (35.0-46.0); HEMO FLAGS DIFF FINAL; LYMPH % 31.5 % (9.0-44.0); LYMPHOCYTE # 1.4 TH/MM3 (1.0-4.8); MEAN CELL VOLUME 98.4 FL (80.0-100.0); MEAN CORPUSCULAR HEMOGLOBIN 33.3 PG (27.0-34.0); MEAN CORPUSCULAR HGB CONC 33.8 % (32.0-36.0); NEUT % 60.1 % (16.0-70.0); PLATELET COUNT 200 TH/MM3 (150-450); RED BLOOD COUNT 3.42 MIL/MM3 (4.00-5.30); RED CELL DISTRIBUTION WIDTH 14.2 % (11.6-17.2); WHITE BLOOD COUNT 4.4 TH/MM3 (4.0-11.0)
[2017-04-02 13:58] LABS: AMPHETAMINE, URINE NEG (NEG); BARBITURATES, URINE NEG (NEG); COCAINE, URINE NEG (NEG)
[2017-04-02 14:05] LABS: ALKALINE PHOSPHATASE 63 U/L (45-117); ALT (GPT) 13 U/L (10-53); ANION GAP 10 MEQ/L (5-15); AST (GOT) 20 U/L (15-37); BICARBONATE 26.8 MEQ/L (21.0-32.0); BLOOD UREA NITROGEN 7 MG/DL (7-18); CHLORIDE 94 MEQ/L (98-107); GLOMERULAR FILTRATION RATE 92 ML/MIN (>89); POTASSIUM 4.1 MEQ/L (3.5-5.1); SODIUM (NA) 131 MEQ/L (136-145); TOTAL BILIRUBIN ADULT 0.2 MG/DL (0.2-1.0)
[2017-04-02 15:00] VITALS: BP 153/87; PULSE 90; RESP 16; O2SAT 95
[2017-04-02] MEDS ORDERED: ALUMINUM/MAGNESIUM/SIMETH 30 ML CUP PO PRN (18:15)
[2017-04-02] MEDS ORDERED: MAGNESIUM HYDROXIDE SUSP 30 ML CUP PO PRN (18:15)
[2017-04-02] MEDS ORDERED: ACETAMINOPHEN 325 MG TAB PO PRN (18:15)
[2017-04-02 20:15] VITALS: BP 159/94; PULSE 100; RESP 18
[2017-04-02] MEDS ORDERED: [UNRECOGNIZED DRUG - OTHER] TOPICAL SCH (21:00)
[2017-04-02 21:50] VITALS: BP 124/87; PULSE 97; RESP 18; TEMP 98; O2SAT 95
[2017-04-02] MEDS: BUDESONIDE-FORMOTEROL 80/4.5 MCG INHALER INH SCH (23:19)
[2017-04-02] MEDS: METOPROLOL TARTRATE 25 MG TAB PO SCH (23:20)
[2017-04-02] MEDS: LACTULOSE SYRUP 20 GM/30 ML CUP PO SCH (23:20)
[2017-04-02] MEDS: OXcarbazepine 300 MG TAB PO SCH (23:20)
[2017-04-02] MEDS: DIVALPROEX SODIUM E.R. 500 MG TAB PO SCH (23:20)
[2017-04-02] MEDS: QUEtiapine FUMARATE 100 MG TAB PO SCH (23:20)
[2017-04-02] MEDS: PRAVASTATIN SOD 20 MG TAB PO SCH (23:20)
[2017-04-03 05:58] VITALS: BP 129/74; PULSE 77; RESP 16; TEMP 97.8; O2SAT 95
[2017-04-03] MEDS: DIVALPROEX SODIUM E.R. 500 MG TAB PO SCH ×2 (08:26→22:57)
[2017-04-03] MEDS: ESCITALOPRAM OXALATE 20 MG TAB PO SCH (08:26)
[2017-04-03] MEDS: BUDESONIDE-FORMOTEROL 80/4.5 MCG INHALER INH SCH ×2 (08:26→21:00)
[2017-04-03] MEDS: OXcarbazepine 300 MG TAB PO SCH ×2 (08:26→22:57)
[2017-04-03] MEDS: CETIRIZINE HCL 10 MG TAB PO SCH (08:26)
[2017-04-03] MEDS: METOPROLOL TARTRATE 25 MG TAB PO SCH ×2 (08:26→22:57)
[2017-04-03] MEDS: OLANZapine 5 MG TAB PO SCH (08:26)
[2017-04-03] MEDS: LACTULOSE SYRUP 20 GM/30 ML CUP PO SCH ×5 (08:26→22:56)
[2017-04-03 11:20] LABS: ANION GAP 8 MEQ/L (5-15); BICARBONATE 29.3 MEQ/L (21.0-32.0); BLOOD UREA NITROGEN 12 MG/DL (7-18); CHLORIDE 98 MEQ/L (98-107); GLOMERULAR FILTRATION RATE 95 ML/MIN (>89); POTASSIUM 4.1 MEQ/L (3.5-5.1); SODIUM (NA) 135 MEQ/L (136-145)
[2017-04-03 11:23] LABS: HDL CHOLESTEROL 67.8 MG/DL (40.0-60.0); LDL CHOLESTEROL 42 MG/DL (0-99)
[2017-04-03 13:32] LABS: HEMOGLOBIN A1b 0.7 %; HEMOGLOBIN Ao 86.8 %; HEMOGLOBIN F 0.8 %; HEMOGLOBIN LA1C 1.7 %; HEMOGLOBIN P3 3.5 %
[2017-04-03] MEDS ORDERED: LORazepam 2 MG/ML VIAL ONE (14:37)
[2017-04-03] MEDS ORDERED: LORazepam 2 MG/ML VIAL IM ONE (15:00)
[2017-04-03] MEDS ORDERED: OLANZapine IM 10 MG VIAL IM ONE (15:00)
[2017-04-03] MEDS ORDERED: ACETAMINOPHEN 325 MG TAB PO PRN (16:30)
[2017-04-03] MEDS ORDERED: MAGNESIUM HYDROXIDE SUSP 30 ML CUP PO PRN (16:30)
[2017-04-03] MEDS ORDERED: ALUMINUM/MAGNESIUM/SIMETH 30 ML CUP PO PRN (16:30)
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
[2017-04-03 18:25] VITALS: BP 122/72; PULSE 69; RESP 14; TEMP 97.9; O2SAT 94
[2017-04-03] MEDS: QUEtiapine FUMARATE 100 MG TAB PO SCH (22:57)
[2017-04-03] MEDS: PRAVASTATIN SOD 20 MG TAB PO SCH (22:57)
[2017-04-04 05:03] VITALS: BP 117/61; PULSE 68; RESP 16; TEMP 97.9; O2SAT 98
[2017-04-04] MEDS: ESCITALOPRAM OXALATE 20 MG TAB PO SCH (08:39)
[2017-04-04] MEDS: OXcarbazepine 300 MG TAB PO SCH ×2 (08:39→20:01)
[2017-04-04] MEDS: METOPROLOL TARTRATE 25 MG TAB PO SCH ×2 (08:40→20:01)
[2017-04-04] MEDS: OLANZapine 5 MG TAB PO SCH (08:40)
[2017-04-04] MEDS: DIVALPROEX SODIUM E.R. 500 MG TAB PO SCH ×2 (08:40→20:00)
[2017-04-04] MEDS: CETIRIZINE HCL 10 MG TAB PO SCH (08:40)
[2017-04-04] MEDS: BUDESONIDE-FORMOTEROL 80/4.5 MCG INHALER INH SCH ×2 (08:43→20:00)
[2017-04-04] MEDS: LACTULOSE SYRUP 20 GM/30 ML CUP PO SCH ×3 (12:06→20:00)
--- NOTE | 2017-04-04 14:46 | HHI.PYPN ---
Objective Labs Test 04/04/17 09:12 Valproic Acid (Depakene) Level 86 MCG/ML Vitals/IOs Vital Signs Date Time Temp Pulse Resp B/P Pulse Ox O2 Delivery O2 Flow Rate FiO2 04/04/17 05:03 97.9 68 16 117/61 98 04/02/17 13:05 Room Air Assessment & Plan Problem List: (1) Schizophrenia ICD Code: F20.9 Assessment & Plan Estimated LOS: days Request HC Surrog/Guard Advoc?: No Problem Qualifiers (1) Schizophrenia: Qualified Code: F20.0 - Paranoid schizophrenia Ivy Quiñonez MD Apr 04, 2017 14:46 (1) Schizophrenia: Qualified Code: F20.0 - Paranoid schizophrenia Ivy Quiñonez MD Apr 04, 2017 14:46
[2017-04-04 16:37] VITALS: BP 130/96; PULSE 77; RESP 18; TEMP 97.7; O2SAT 98
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
--- NOTE | 2017-04-04 17:48 | HHI.PR ---
Subjective Remarks in shower alert, responds to simple questions diarrhea, but pt. is on lactulose no acute pain Objective Objective Results - Vital Signs Date Time Temp Pulse Resp B/P Pulse Ox O2 Delivery O2 Flow Rate FiO2 04/04/17 16:37 97.7 77 18 130/96 98 04/04/17 05:03 97.9 68 16 117/61 98 04/03/17 18:25 97.9 69 14 122/72 94 Result Diagram: 04/02/17 1325 04/03/17 1019 ROS General: Other Pulmonary: Cough GI: Other (abdomen round soft) Physical Exam Physical Exam PHYSICAL EXAMINATION GENERAL: This is a well-developed, well-nourished female who appears to be in no acute distress. She is alert and awake, HEAD: Normocephalic OROPHARYNGEAL: No complaints of any dryness NECK: Supple. CARDIAC: Regular rhythm, LUNGS: Shortness of breath no wheezing ABDOMEN: Soft, round, EXTREMITIES: no edema. NEUROLOGICAL: Patient mood and affect appropriate. SKIN:Warm and moist Objective Remarks Schizophrenia Medical management per psych staff Hyperlipidemia, elevated HDL noted on lab work Patient's on a statin Hyponatremia Probably secondary to her schizophrenia diagnosis, monitor labs Altered mental status noted on admission Currently patient is answering questions appropriately, mild anxiety We'll continue to monitor her labs and vital signs, currently patient is afebrile Patient notes diarrhea but she is also taking lactulose. Kirsten Tomas Apr 04, 2017 17:48
[2017-04-04] MEDS: QUEtiapine FUMARATE 100 MG TAB PO SCH (20:01)
[2017-04-04] MEDS: PRAVASTATIN SOD 20 MG TAB PO SCH (20:01)
[2017-04-05 06:12] VITALS: BP 151/88; PULSE 76; RESP 18; TEMP 97.7; O2SAT 97
--- NOTE | 2017-04-05 08:10 | MB ---
cc: LASHELL DENNIS MD DATE OF ADMISSION 04/02/17 DATE OF CONSULTATION 04/03/17 DATE OF 1965 REASON FOR CONSULTATION Medical management. No travel in the last 30 days. HISTORY OF PRESENT ILLNESS This is an unfortunate 51-year-old white female with a significant history of schizophrenia. She was brought in under [employer] and currently, according to the record, resides in the mental health facility. The patient has auditory hallucinations and thinks pain that people are after her and causing cough her abuse. She is sleeping, lethargic at this moment and is unable to answer any questions. Information is being gathered per the record. The patient is not suicidal or homicidal. Currently she is resting well in her bed with no apparent shortness of breath. PAST MEDICAL HISTORY 1. Anxiety, depression, 2. COPD 3. Hypertension. 4. Tubal ligation 5. Seizure disorder 6. Previous UTI. 7. Hyperlipidemia PAST SURGICAL HISTORY Some type of gynecological surgery. ALLERGIES HALDOL MEDICATIONS Active medications 1. Pravastatin 2. Olanzapril 3. Quetiatine 4. Metoprolol 5. Lactulose 6. Lexapro 7. Depakote 8. Zyrtec 9. Symbicort 10. Macrobid SOCIAL HISTORY Quit smoking approximately five months ago. No alcohol. No illicit drugs. REVIEW OF SYSTEMS Unable to obtain secondary to the patient's lethargy and sleeping. PHYSICAL EXAMINATION VITAL SIGNS: Temperature is 97.8, pulse 77, respirations 16, blood pressure 129/74, has been as high as 159/94 with activity. Heart rate also goes up to a pulse of 100. GENERAL: Slim white female who looks older than her stated age, sleeping, resting in her bed. HEENT: [place], no drainage or mucus noted from her oral cavity, eyes or ears. NECK: Supple. CARDIOVASCULAR: S1-S2, rhythm is regular. LUNGS: Essentially clear with no rhonchi noted. ABDOMEN: Flat, soft. Bowel sounds are soft. MUSCULOSKELETAL: Moves her extremities with purpose, According to the record. NEUROLOGIC: She is drowsy and sleeping but does minimally respond to verbal stimuli. SKIN: Pale, warm and dry. LABORATORY DATA WBC count 4.4, RBC 3.42, hemoglobin 11.4, hematocrit 33.6. Diff is normal. Sodium 135, potassium 4.1, chloride 198, carbon dioxide 29.3, BUN 12, creatinine 0.65, random glucose is 82 and 73, HDL cholesterol 67.8. Toxicology is negative. Alcohol less than three. Negative for any outside drugs. ASSESSMENT/PLAN 1. Recent UTI 2. Hyponatremia 3. History of depression 4. History of COPD, 5. Paranoid type schizophrenia 6. History of agitation. Our plan is to monitor her labs and her vital signs and monitor any medical dilemma she may have. It looks like her meds have been reconciled. The patient is currently on an antibiotic for her UTI. The patient came in on an antibiotic and her reconciled meds for a UTI. It has not been continued. We will check a UA and make sure that she is currently having no further symptoms. If she is, we can continue her treatment regimen. The patient does have a history of seizure disorders but it looks like her medications have been continued. Sodium is 135. We will monitor. Anemia probably secondary to chronic disease. We will monitor. Ms. Saucedo is known to our group for medical management. We appreciate the consult. Dictated by SAMIR Mcdowell MD YVES Mcnally/ /4:24 PM /8:08 AM
[2017-04-05] MEDS: LACTULOSE SYRUP 20 GM/30 ML CUP PO SCH ×4 (08:23→20:07)
[2017-04-05] MEDS: OXcarbazepine 300 MG TAB PO SCH ×2 (08:23→20:01)
[2017-04-05] MEDS: OLANZapine 5 MG TAB PO SCH (08:23)
[2017-04-05] MEDS: DIVALPROEX SODIUM E.R. 500 MG TAB PO SCH ×3 (08:23→11:43)
[2017-04-05] MEDS: METOPROLOL TARTRATE 25 MG TAB PO SCH ×2 (08:23→20:01)
[2017-04-05] MEDS: CETIRIZINE HCL 10 MG TAB PO SCH (08:24)
[2017-04-05] MEDS: ESCITALOPRAM OXALATE 20 MG TAB PO SCH (08:24)
[2017-04-05] MEDS: BUDESONIDE-FORMOTEROL 80/4.5 MCG INHALER INH SCH ×2 (08:24→20:03)
--- NOTE | 2017-04-05 12:22 | PD.TTN ---
Present for Treatment Team Treatment Team Staff: Provider (Dr. Bruce), Nurse (Daron), Psych Therapist (Melida), Occupational Therapist (Shyanne) Patient Problems 1. Discharge planning 2. Medication compliance 3. Knowledge deficit 4. Lack of coping skills Progress Toward Goals Provider Input: Patient continues to need further stablization due to behavioral issues. Medication adjustments and observation continue Nurse Input: Patient is cooperative and calm throughout the unit. Patient is compliant with medications. Psych Therapist Input: Patient is cooperative and continues to have internal stimulation. Patient is pleasant on the unit with no behavioral issues. Occupational Therapist Input: Patient is selctive with groups but does not have behavioral issues. Needs some redirection. Melida Barnard [facility] Apr 05, 2017 12:22
--- NOTE | 2017-04-05 13:07 | HHI.PYPN ---
Subjective Remarks Patient seen in [place] with nurse Dianna, and medical school student Dianna , chart reviewed. Patient compliant medication. Patient continues markedly disorganized and delusional intense. Showing increased distress when attempting to speak about return to [facility]. She refuses to do that at this time. For now continue treatment Review of Systems Except as stated in HPI: all other systems reviewed are Neg Objective Alert: Yes [place]: Person, Place Mood: Agitated, Anxious Affect: Labile Memory Intact: Comment (poor) Hallucinations: Other Delusions: Yes Delusion Type: Paranoid Suicidal: Ideation (denies) Homicidal: Ideation (denies) Insight/Judgment Poor Vitals/IOs Vital Signs Date Time Temp Pulse Resp B/P Pulse Ox O2 Delivery O2 Flow Rate FiO2 04/05/17 06:12 97.7 76 18 151/88 97 04/02/17 13:05 Room Air Assessment & Plan Problem List: (1) Schizophrenia ICD Code: F20.9 Assessment & Plan Estimated LOS: days patient continue psychotic and delusional. She is labile. Showing resistance to considering return to [facility]. For now continue treatment Justification for Cont. Inpt. At this time patient will decompensate placed in a lower level of care Discharge Planning To be determined Request HC Surrog/Guard Advoc?: No Problem Qualifiers (1) Schizophrenia: Qualified Code: F20.0 - Paranoid schizophrenia Kt Bruce MD Apr 05, 2017 13:07
[2017-04-05 15:50] VITALS: BP 145/78; PULSE 76; RESP 18; TEMP 97.7; O2SAT 99
[2017-04-05] MEDS: PRAVASTATIN SOD 20 MG TAB PO SCH (20:01)
[2017-04-05] MEDS: QUEtiapine FUMARATE 100 MG TAB PO SCH (20:01)
[2017-04-06 05:28] VITALS: BP 148/96; PULSE 73; RESP 17; TEMP 97.5; O2SAT 99
[2017-04-06] MEDS: BUDESONIDE-FORMOTEROL 80/4.5 MCG INHALER INH SCH ×2 (08:28→20:36)
[2017-04-06] MEDS: CETIRIZINE HCL 10 MG TAB PO SCH (08:29)
[2017-04-06] MEDS: DIVALPROEX SODIUM E.R. 500 MG TAB PO SCH ×2 (08:29→20:36)
[2017-04-06] MEDS: OXcarbazepine 300 MG TAB PO SCH ×2 (08:29→20:36)
[2017-04-06] MEDS: ESCITALOPRAM OXALATE 20 MG TAB PO SCH (08:29)
[2017-04-06] MEDS: LACTULOSE SYRUP 20 GM/30 ML CUP PO SCH ×4 (08:29→20:35)
[2017-04-06] MEDS: METOPROLOL TARTRATE 25 MG TAB PO SCH ×2 (08:29→21:00)
[2017-04-06] MEDS: OLANZapine 5 MG TAB PO SCH (08:29)
[2017-04-06 15:17] VITALS: BP 132/80; PULSE 85; RESP 18; TEMP 98.3; O2SAT 92
--- NOTE | 2017-04-06 16:53 | HHI.PR ---
Subjective Remarks Patient was sitting on a chair without any apparent distress Less than Offering no complaint Denies any headache dizziness nausea vomiting chest pain diaphoresis palpitations Denies any abdominal pain Asking for how long she has been here Review of system for 10 point system otherwise unremarkable Objective Objective Results - Vital Signs Date Time Temp Pulse Resp B/P Pulse Ox O2 Delivery O2 Flow Rate FiO2 04/06/17 15:17 98.3 85 18 132/80 92 04/06/17 05:28 97.5 73 17 148/96 99 Result Diagram: 04/02/17 1325 04/03/17 1019 Physical Exam Physical Exam GENERAL: Slim white female who looks older than her stated age, sitting on a chair without any apparent distress HEENT: Negative conjunctival congestion or icterus NECK: Supple. CARDIOVASCULAR: S1-S2, rhythm is regular. LUNGS: Essentially clear with no rhonchi noted. ABDOMEN: Flat, soft. Bowel sounds are soft. MUSCULOSKELETAL: Moves her extremities with purpose, According to the record. NEUROLOGIC: She is drowsy and sleeping but does minimally respond to verbal stimuli. SKIN: Pale, warm and dry. A/P Assessment and Plan 1. Recent UTI 2. Hyponatremia 3. History of depression 4. History of COPD, 5. Paranoid type schizophrenia 6. History of agitation. Labs reviewed Medications reviewed history of seizure disorders stable at present sodium is 135 Anemia probably secondary to chronic disease. Will follow on an as-needed basis Yehuda Logan MD Apr 06, 2017 16:53
[2017-04-06] MEDS: PRAVASTATIN SOD 20 MG TAB PO SCH (20:36)
[2017-04-06] MEDS: QUEtiapine FUMARATE 100 MG TAB PO SCH (20:39)
[2017-04-07 05:22] VITALS: BP 137/68; PULSE 96; RESP 17; TEMP 98; O2SAT 95
[2017-04-07] MEDS: DIVALPROEX SODIUM E.R. 500 MG TAB PO SCH (08:57)
[2017-04-07] MEDS: CETIRIZINE HCL 10 MG TAB PO SCH (08:57)
[2017-04-07] MEDS: LACTULOSE SYRUP 20 GM/30 ML CUP PO SCH ×2 (08:57→13:00)
[2017-04-07] MEDS: METOPROLOL TARTRATE 25 MG TAB PO SCH (08:57)
[2017-04-07] MEDS: OXcarbazepine 300 MG TAB PO SCH (08:57)
[2017-04-07] MEDS: BUDESONIDE-FORMOTEROL 80/4.5 MCG INHALER INH SCH (08:57)
[2017-04-07] MEDS: OLANZapine 5 MG TAB PO SCH (08:57)
[2017-04-07] MEDS: ESCITALOPRAM OXALATE 20 MG TAB PO SCH (08:57)
[2017-04-07] MEDS ORDERED: QUET1TAB8 PO (10:01)
[2017-04-07] MEDS ORDERED: ESCI20TA PO (10:01)
[2017-04-07] MEDS ORDERED: PRAV20TA PO (10:01)
[2017-04-07] MEDS ORDERED: Lactulose Liq PO (10:01)
[2017-04-07] MEDS ORDERED: SYMB80AE INH (10:01)
[2017-04-07] MEDS ORDERED: METO25TA3 PO (10:01)
[2017-04-07] MEDS ORDERED: OXCA300T PO (10:01)
[2017-04-07] MEDS ORDERED: CETI10 PO (10:01)
[2017-04-07] MEDS ORDERED: OLAN10TA PO (10:01)
[2017-04-07] MEDS ORDERED: DEPA500T3 PO (10:01)
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
--- NOTE | 2017-04-09 08:35 | HHI.PYPN ---
Subjective Remarks This is a late entry note on this patient for visit I had with her on 04/06/17. Patient seen that day by me with floor staff. I did review her chart on that day she had been compliant with medications. She is still somewhat labile but calmer. Showed a little more focused towards me. At that time showed a willingness to return to [facility]. With the caveat that she could request a possible transfer to another facility with the staff there. She denies suicidality homicidality voices or visions. She is compliant with the medication Review of Systems Except as stated in HPI: all other systems reviewed are Neg Objective Alert: Yes [place]: Person, Place Mood: Agitated, Anxious Affect: Labile Memory Intact: Comment (poor) Hallucinations: Other Delusions: Yes Delusion Type: Paranoid Suicidal: Ideation (denies) Homicidal: Ideation (denies) Insight/Judgment Poor Vitals/IOs Vital Signs Date Time Temp Pulse Resp B/P Pulse Ox O2 Delivery O2 Flow Rate FiO2 04/07/17 05:22 98.0 96 17 137/68 95 Assessment & Plan Problem List: (1) Schizophrenia ICD Code: F20.9 Assessment & Plan Estimated LOS: days on that day patient showed some improvement psychosis was diminishing, she showing some improvement in processing her need to return to [facility] at that time. Justification for Cont. Inpt. At that time patient would decompensate if not placed in an appropriate level of care Discharge Planning To be determined Request HC Surrog/Guard Advoc?: No Problem Qualifiers (1) Schizophrenia: Qualified Code: F20.0 - Paranoid schizophrenia Kt Bruce MD Apr 09, 2017 08:35
== END 2017-04-07 15:25 | DRG 885 ==
LOC: NEPJ 12:43 → NEDA 18:12 → H260 21:51
PROVIDERS: ADMIT Psychiatry & Neurology Psychiatry; ATTEND Psychiatry & Neurology Psychiatry
DX: F20.0 Paranoid schizophrenia (principal); E87.1 Hypo-osmolality and hyponatremia; I10 Essential (primary) hypertension; N39.0 Urinary tract infection, site not specified; F32.9 Major depressive disorder, single episode, unspecified; F41.9 Anxiety disorder, unspecified; J44.9 Chronic obstructive pulmonary disease, unspecified; E78.5 Hyperlipidemia, unspecified; G40.909 Epilepsy, unspecified, not intractable, without status epilepticus; D63.8 Anemia in other chronic diseases classified elsewhere; R19.7 Diarrhea, unspecified; Z87.891 Personal history of nicotine dependence
CPT/HCPCS: 80048; 80053; 80061; 80164; 80307; 83036; 85025; 99285; J2060

== ENCOUNTER 2017-04-12 13:30 | Inpatient (IN) | payer MEDICARE, MEDICAID, OTHER ==
[~2017-04-12] VITALS: Ht 172.7 cm; Wt 64.5 kg
[~2017-04-12 13:30] MED LIST changes: -LACT10SO5 PO; -MACR100C2 PO
[2017-04-12 14:04] VITALS: BP 128/84; PULSE 82; RESP 16; TEMP 98.5; O2SAT 98
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
[2017-04-12 17:04] VITALS: BP 122/81; PULSE 80; TEMP 96.6; O2SAT 98
[2017-04-12] MEDS ORDERED: LACT10SO PO (17:19)
[2017-04-12] MEDS ORDERED: PRAV20TA2 PO (17:26)
[2017-04-12 18:54] LABS: BACTERIA, URINE RARE /hpf; BLOOD, URINE NEG (NEG); COMMENT (UR) CULT NOT INDICATED; CULTURE IF INDICATED CULT NOT INDICATED; GLUCOSE,URINE NEG (NEG); KETONE, URINE NEG (NEG); NITRITE,URINE NEG (NEG); SQUAMOUS EPITHELIAL CELL URINE <1 /hpf (0-5); URINE COLOR LIGHT-YELLOW (YELLW/STRAW)
[2017-04-12 22:00] VITALS: BP 129/83; PULSE 94; RESP 18; O2SAT 95
[2017-04-13 02:43] VITALS: BP 129/83; PULSE 101; RESP 18; O2SAT 95
[2017-04-13 06:24] VITALS: RESP 18
[2017-04-13 10:35] VITALS: BP 105/63; PULSE 104; RESP 16; O2SAT 95
--- NOTE | 2017-04-13 14:27 | PD ---
History of Present Illness Chief Complaint: Psychiatric Symptoms Time Seen by Provider: 14:15 Travel History International Travel<30 Days: No Contact w/Intl Traveler<30days: No Known affected area: No Legal Status Legal Status: Stoddard Act Stoddard Act Signed By: SARTHAK CARLSON, CLINICAL PSYCHOLOGIST History of Present Illness: History of Present Illness HPI Patient is a 51-year-old female with history of schizophrenia, multiple psychiatric hospitalizations here at [facility] who presents to the emergency Department under Stoddard act initiated by the psychologist at [facility]. Per the Stoddard act report patient has schizophrenia and " has been decompensating and delusional presents as confused, disoriented., walking into the street and into traffic and saying that she is confused and likely to harm herself. It states that she has been walking into traffic and is likely a harm to herself. The patient has been monitored in J pod. She refuses at this time to answer any questions and asks me to " just bring me some apple juice and a washcloth. That 's what you can do". She then begins to mumble to herself but would not answer my questions. PFSH Past Medical History Arthritis: No Asthma: No Autoimmune Disease: No Anxiety: Yes Depression: Yes Heart Rhythm Problems: No Cancer: No Cardiovascular Problems: No High Cholesterol: No Chemotherapy: No Chest Pain: No Congestive Heart Failure: No COPD: Yes Cerebrovascular Accident: No Diabetes: No Diminished Hearing: No Endocrine: No Gastrointestinal Disorders: No GERD: No Genitourinary: No Headaches: No Hiatal Hernia: No Hypertension: Yes Immune Disorder: No Implanted Vascular Access Dvce: No Kidney Stones: No Musculoskeletal: No Neurologic: No Reproductive: No Immunizations Current: No Migraines: No Radiation Therapy: No Renal Failure: No Schizophrenia: Yes Seizures: No Sickle Cell Disease: No Sleep Apnea: No Thyroid Disease: No Ulcer: No Tetanus Vaccination: Unknown Influenza Vaccination: Yes ?: Not : 1 Para: 1 Miscarriage: 0 : 0 Tubal Ligation: Yes Past Surgical History AICD: No Arteriovenous Shunt: No Cardiac Surgery: No Genitourinary Surgery: No Gynecologic Surgery: Yes Insulin Pump: No Joint Replacement: No Pacemaker: No Thoracic Surgery: No Other Surgery: Yes Psychiatric History Psychiatric History Hx Psychiatric Treatment: Pt has been treated for Schizophrenia in past and has multiple admissions to [facility] psychiatry dept. History of Inpatient Treatment: Yes (Discharged on Apr 07, 2017. ) Guns or firearms in home: No Social History Single female. lives in an [place] Hx Alcohol Use: No Hx Tobacco Use: Yes (quit 5 months ago) Hx Substance Use: No Substance Use Type: Nicotine/Cigarettes Hx of Substance Use Treatment: No Family Psychiatric History Unable to obtain Allergies-Medications (Allergen,Severity, Reaction): Coded Allergies: Haldol (Verified Allergy, Unknown, 04/12/17) Per MAR sent by [employer]. Reported Meds & Prescriptions Reported Meds & Active Scripts Active Olanzapine 10 Mg Tab 10 Mg PO DAILY Metoprolol Tartrate 25 Mg Tab 12.5 Mg PO 1/2 BID Cetirizine (Cetirizine HCl) 10 Mg Tab 10 Mg PO DAILY Symbicort Inh (Budesonide/Formoterol Fumarate) 80-4.5 Mcg/Act Aero 1 Puff INH Q12HR Oxcarbazepine 300 Mg Tab 300 Mg PO BID Escitalopram (Escitalopram Oxalate) 20 Mg Tab 20 Mg PO DAILY Depakote ER (Divalproex Sodium) 500 Mg Mila 500 Mg PO BID Quetiapine (Quetiapine Fumarate) 100 Mg Tab 100 Mg PO HS Reported Pravastatin 20 Mg Tab 20 Mg PO HS Lactulose Liq (Lactulose) 10 Gm/15 Ml Soln 20 Ml PO BID Dermazone 0.1 % (Triamcinolone Acetonide-[place]) 1 Mis Mis 1 Applic TOPICAL BID Alendronate (Alendronate Sodium) 70 Mg Tab 70 Mg PO Q7D ON FRIDAYS Review of Systems ROS Limitations: Uncooperative Exam Alert: Yes [place]: Person Mood: Angry Affect: Other (variable) Speech: Illogical Eye Contact: None Memory Intact: Comment (not tested) Hallucinations: Auditory Delusions: No Suicidal: Ideation (denies) Homicidal: Ideation (deneis any) Insight/Judgement Poor. Poor MDM Medical Decision Making Medical Record Reviewed: Yes Assessment/Plan Patient is a 51-year-old female presenting to the emergency Department under Stoddard act from [employer]. Per the Stoddard act report patient has schizophrenia and has been decompensating and delusional. It states that she has been walking into traffic and is likely a harm to herself. She does report hearing voices. Patient refuses to engage in examination with this copy writer. Case discussed with Dr. Bruce. Patient to be admitted to his service. Patient to be admitted to inpatient psychiatry for stabilization, containment and to maintain safety. Orders Urinalysis - C+S If Indicated (04/12/17 15:06) Psych Screen (04/12/17 22:32) Diet Regular Basic (04/13/17 Breakfast) Diet Regular Basic (04/13/17 Lunch) Results Vital Signs Date Time Temp Pulse Resp B/P Pulse Ox O2 Delivery O2 Flow Rate FiO2 04/13/17 10:35 104 16 105/63 95 Room Air 04/13/17 06:24 18 04/13/17 02:43 101 18 129/83 95 Room Air 04/12/17 22:00 94 18 129/83 95 Room Air 04/12/17 17:04 96.6 80 122/81 98 Laboratory Tests Test 04/12/17 18:11 Urine Color LIGHT-YELLOW Urine Turbidity CLEAR Urine pH 7.0 Urine Specific [place] 1.004 Urine Protein NEG Urine Glucose (UA) NEG Urine Ketones NEG Urine Occult Blood NEG Urine Nitrite NEG Urine Bilirubin NEG Urine Urobilinogen LESS THAN 2.0 Urine Leukocyte Esterase MOD Urine RBC 1 Urine WBC 2 Urine Squamous Epithelial <1 Cells Urine Bacteria RARE Microscopic Urinalysis Comment CULT NOT INDICATED Diagnosis Primary Impression: Medical clearance for psychiatric admission Additional Impression: Schizophrenia Admitting Information Admitting Physician Requests: Admit Condition: Stable Problem Qualifiers Additional Impression: Schizophrenia Qualified Code: F20.3 - Undifferentiated schizophrenia Sarah Beth Salazar [facility] Apr 13, 2017 14:27
[2017-04-13] MEDS ORDERED: ACETAMINOPHEN 325 MG TAB PO PRN (15:45)
[2017-04-13] MEDS ORDERED: ALUMINUM/MAGNESIUM/SIMETH 30 ML CUP PO PRN (15:45)
[2017-04-13] MEDS ORDERED: MAGNESIUM HYDROXIDE SUSP 30 ML CUP PO PRN (15:45)
[2017-04-13] MEDS ORDERED: PILL SPLITTER OTHER PRN (17:00)
[2017-04-13 17:23] VITALS: BP 105/63; PULSE 104; RESP 16; O2SAT 95
[2017-04-13 17:45] VITALS: BP 126/82; PULSE 94; RESP 16; TEMP 97.2; O2SAT 92
[2017-04-13] MEDS: LACTULOSE SYRUP 20 GM/30 ML CUP PO SCH (21:00)
[2017-04-13] MEDS: BUDESONIDE-FORMOTEROL 80/4.5 MCG INHALER INH SCH (21:00)
[2017-04-13] MEDS ORDERED: [UNRECOGNIZED DRUG - OTHER] TOPICAL SCH (21:00)
[2017-04-13] MEDS ORDERED: [UNRECOGNIZED DRUG - OTHER] TOPICAL SCH (21:00)
[2017-04-13] MEDS: OXcarbazepine 300 MG TAB PO SCH (21:42)
[2017-04-13] MEDS: METOPROLOL TARTRATE 25 MG TAB PO SCH (21:42)
[2017-04-13] MEDS: QUEtiapine FUMARATE 100 MG TAB PO SCH (21:42)
[2017-04-13] MEDS: DIVALPROEX SODIUM E.R. 500 MG TAB PO SCH (21:43)
[2017-04-13] MEDS: PRAVASTATIN SOD 20 MG TAB PO SCH (21:43)
[2017-04-14 06:32] VITALS: BP 115/73; PULSE 76; RESP 16; TEMP 97.9; O2SAT 98
[2017-04-14] MEDS: OXcarbazepine 300 MG TAB PO SCH ×2 (08:31→21:00)
[2017-04-14] MEDS: DIVALPROEX SODIUM E.R. 500 MG TAB PO SCH ×2 (08:31→21:00)
[2017-04-14] MEDS: ESCITALOPRAM OXALATE 20 MG TAB PO SCH (08:31)
[2017-04-14] MEDS: CETIRIZINE HCL 10 MG TAB PO SCH (08:31)
[2017-04-14] MEDS: LACTULOSE SYRUP 20 GM/30 ML CUP PO SCH ×2 (08:31→21:00)
[2017-04-14] MEDS: METOPROLOL TARTRATE 25 MG TAB PO SCH ×2 (08:31→21:00)
[2017-04-14] MEDS: BUDESONIDE-FORMOTEROL 80/4.5 MCG INHALER INH SCH ×2 (08:34→21:00)
[2017-04-14] MEDS ORDERED: OLANZapine 10 MG TAB PO SCH (09:00)
[2017-04-14 09:02] LABS: ANION GAP 4 MEQ/L (5-15); BICARBONATE 33.4 MEQ/L (21.0-32.0); BLOOD UREA NITROGEN 17 MG/DL (7-18); CHLORIDE 96 MEQ/L (98-107); GLOMERULAR FILTRATION RATE 95 ML/MIN (>89); POTASSIUM 4.2 MEQ/L (3.5-5.1); SODIUM (NA) 133 MEQ/L (136-145)
[2017-04-14 09:04] LABS: HDL CHOLESTEROL 80.4 MG/DL (40.0-60.0); LDL CHOLESTEROL 56 MG/DL (0-99)
[2017-04-14] MEDS ORDERED: MAGNESIUM HYDROXIDE SUSP 30 ML CUP PO PRN (11:45)
[2017-04-14] MEDS ORDERED: ALUMINUM/MAGNESIUM/SIMETH 30 ML CUP PO PRN (11:45)
[2017-04-14] MEDS ORDERED: ACETAMINOPHEN 325 MG TAB PO PRN (11:45)
--- NOTE | 2017-04-14 12:06 | HHI.HP ---
Provisional Diagnosis Admission Date Apr 13, 2017 at 15:35 [place] I. 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 Express and informed consent means consent voluntarily given in writing, by a competent person, after sufficient explanation and disclosure of the subject matter involved to enable the person to make a knowing and willful decision without any element of force, fraud, deceit, duress, or other form of constraint or coercion. This person is 18 years of age or older, is not now known to be incompetent to consent to treatment with a guardian advocate, and does not have a health care surrogate or proxy currently making medical treatment decisions. I have found this person to be one of the following: [] Competent to provide express and informed consent, as defined above, for voluntary admission to this facility and is competent to provide express and informed consent for treatment. He/she has the consistent capacity to make well reasoned, willful, and knowing decisions concerning his or her medical or mental health treatment. The person fully and consistently understands the purpose of the admission for examination/placement and is fully capable of personally exercising all rights assured [place] [] Incompetent to provide express and informed consent to voluntary admission, and this is incompetent to provide express and informed consent to treatment. The person must be transferred to involuntary status and a petition for a guardian advocate filed with the Circuit Court. [xxx] Refusing to provide express and informed consent to voluntary admission but is competent to provide express and informed consent for treatment. The person must be discharged or transferred to involuntary status. Form shall be completed within 24 hours of a person's arrival at the receiving facility and filed in the clinical record of each person: 1. Admitted on a voluntary basis 2. Permitted to provide express and informed consent to his/her own treatment 3. Allowed to transfer from involuntary to voluntary status 4. Prior to permitting a person to consent to his or her own treatment after having been previously found incompetent to consent to treatment. History of Present Illness Capacity: Lacks Capacity (patient lacks capacity to sign for admission, has capacity to sign for medication) HPI Patient is a 51-year-old white female well-known to us from multiple prior contacts comes here under a Stoddard act signed by Santhosh shen psyd , dated 04/12/17 at 12:05 PM that document reviewed stating schizophrenia unspecified major depressive disorder basically stating Libra has been decompensating for over the past few days. She is oriented times to "person/ place" and presents as confused disoriented and delusional. Libra is walking into the street into traffic and says she is "lost". She is placing herself in significant danger and is a threat to self and others. She requires med eval and containment and a higher level of care. Patient seen screened in ED and medically cleared in the ED. No urine toxicology was drawn. No Depakote blood level was drawn. At the present time patient standing in the day room patient seen with nurse Sonja and family practice resident Drew. Patient did recognize me from our previous visit about 7-10 days ago during her last admission was oriented to that discharge. She states she went back to [facility]. Is getting along with her roommate. Until some management and the uniform came to the facility escorted her to what appears to the place car and brought her here under the Stoddard act. The information Stoddard act is quite similar to the information of the previous Stoddard act which was with admission number visit [id number] admission 04/02/17 through 04/07/17. She continues to denies suicidality homicidality voices or visions. States she's been compliant with the medication. However at the present time I feel patient doesn't meet criteria for involuntary psychiatric hospitalization under the Stoddard act. As a courtesy to this lady's behavior at times there are some mild cognitive issues related to her memory and recollection of behaviors. We will do some minor adjustment of the medications. Will increase her daily olanzapine to 15 mg daily continue other medications no change at the present time. We'll get a Depakote blood level in the morning verify Depakote level also Review of Systems Constitutional: DENIES: Diaphoretic episodes, Fatigue, Fever, Weight gain, Weight loss, Chills, Dizziness, Change in appetite, Night Sweats Endocrine: DENIES: Abnorml menstrual pattern, Heat/cold intolerance, Polydipsia , Polyuria, Polyphagia Eyes: DENIES: Blurred vision, Diplopia, Eye inflammation, Eye pain, Vision loss , Photosensitivity, Double Vision Ears, nose, mouth, throat: DENIES: Tinnitus, Hearing loss, Vertigo, Nasal discharge, Oral lesions, Throat pain, Hoarseness, Ear Pain, Running Nose, Epistaxis, Sinus Pain, Toothache, Odynophagia Respiratory: DENIES: Apneas, Cough, Snoring, Wheezing, Hemoptysis, Sputum production, Shortness of breath Cardiovascular: DENIES: Chest pain, Palpitations, Syncope, Dyspnea on Exertion , PND, Lower Extremity Edema, Orthopnea, Claudication Gastrointestinal: DENIES: Abdominal pain, Black stools, Bloody stools, Constipation, Diarrhea, Nausea, Vomiting, Difficulty Swallowing, Anorexia Genitourinary: DENIES: Abnormal vaginal bleeding, Dysmenorrhea, Dyspareunia, Sexual dysfunction, Urinary frequency, Urinary incontinence, Urgency, Hematuria , Dysuria, Nocturia, Vaginal discharge Musculoskeletal: DENIES: Joint pain, Muscle aches, Stiffness, Joint Swelling, Back pain, Neck pain Integumentary: DENIES: Abnormal pigmentation, Pruritus, Rash, Nail changes, Breast masses, Breast skin changes, Nipple discharge Hematologic/lymphatic: DENIES: Bruising, Lymphadenopathy Immunologic/allergic: DENIES: Eczema, Urticaria Neurologic: DENIES: Abnormal gait, Headache, Localized weakness, Paresthesias, Seizures, Speech Problems, Tremor, Poor Balance Psychiatric: COMPLAINS OF: Confusion (mild), Delusions (vaguely paranoid) Past Psych History Psychological trauma history Denies at this time Violence risk - others (6 mos) Low Violence risk - self (6 mos) Low Substance Abuse History Drugs/Alcohol past 12 months Denies Past Family Social History Coded Allergies: Haldol (Verified Allergy, Unknown, 04/12/17) Per MAR sent by [employer]. Active Scripts Metoprolol Tartrate 25 Mg Tab12.5 Mg PO 1/2 bid #30 TAB Ref 0 Prov:Kt Bruce MD 03/08/17 Cetirizine 10 Mg Tab10 Mg PO DAILY #30 TAB Ref 0 Prov:Kt Bruce MD 03/08/17 Budesonide-Formoterol Inh (Symbicort Inh)80-4.5 Mcg/Act Aero1 Puff INH Q12HR # 1 INHALER Ref 0 Prov:Kt Bruce MD 03/08/17 Oxcarbazepine 300 Mg Lhs500 Mg PO BID #60 TAB Ref 0 Prov:tK Bruce MD 01/20/17 Escitalopram 20 Mg Tab20 Mg PO DAILY #30 TAB Ref 0 Prov:Kt Bruce MD 01/20/17 Divalproex ER (Depakote ER)500 Mg [id number] Mg PO BID #60 TAB Ref 0 Prov:Kt Bruce MD 01/20/17 Quetiapine 100 Mg [id number] Mg PO HS #30 TAB Prov:Gianna Urban 01/15/17 Reported Medications Pravastatin 20 Mg Tab20 Mg PO HS Ref 0 04/12/17 Lactulose Liq 10 Gm/15 Ml Soln20 Ml PO BID Ref 0 04/12/17 Triamcinolone Acetonide-Silico (Dermazone 0.1 %)1 Mis Mis1 Applic TOPICAL BID 02/25/17 Alendronate 70 Mg Tab70 Mg PO Q7D ON FRIDAYS #4 TAB Ref 0 01/13/17 Discontinued Reported Medications Olanzapine 5 Mg Tab10 Mg PO DAILY #60 TAB Ref 0 02/25/17 Lactulose 10 Gm/15 Ml [id number] Gm PO QID 02/25/17 Discontinued Scripts Olanzapine 10 Mg Tab10 Mg PO DAILY #30 TAB Ref 0 Prov:Kt Bruce MD 04/07/17 Quetiapine 100 Mg [id number] Mg PO HS #30 TAB Ref 0 Prov:Kt Bruce MD 04/07/17 Pravastatin (Pravachol)20 Mg Tab20 Mg PO HS #30 TAB Ref 0 Prov:Kt Bruce MD 04/07/17 Oxcarbazepine 300 Mg Syh019 Mg PO BID #60 TAB Ref 0 Prov:Kt Bruce MD 04/07/17 Metoprolol Tartrate 25 Mg Tab12.5 Mg PO 09/07 bid #15 TAB Ref 0 Prov:Kt Bruce MD 04/07/17 [Lactulose] (Lactulose Liq)30 ML SYRP No Conflict Check30 Ml PO QID #1 BOTTLE Ref 0 Prov:Kt Bruce MD 04/07/17 Escitalopram 20 Mg Tab20 Mg PO DAILY #30 TAB Ref 0 Prov:Kt Bruce MD 04/07/17 Divalproex ER (Depakote ER)500 Mg [id number] Mg PO BID #60 TAB Ref 0 Prov:Kt Bruce MD 04/07/17 Cetirizine 10 Mg Tab10 Mg PO DAILY #30 TAB Ref 0 Prov:Kt Bruce MD 04/07/17 Budesonide-Formoterol Inh (Symbicort Inh)80-4.5 Mcg/Act Aero1 Puff INH Q12HR # 1 BOTTLE Ref 0 Prov:Kt Bruce MD 04/07/17 Pravastatin (Pravachol)20 Mg Tab20 Mg PO HS #30 TAB Ref 0 Prov:Kt Bruce MD 03/08/17 Current Medications Medications (Trade) Dose Ordered Sig/Sae Route Start Time Stop Time Status Last Admin (Tylenol) 650 mg Q4H PRN PO 04/13/17 15:45 (Milk Of Magnesia Liq) 30 ml DAILY PRN PO 04/13/17 15:45 (Mag-Al Plus Susp Liq) 30 ml Q6H PRN PO 04/13/17 15:45 (Symbicort 80-4.5 Mcg Inh) 1 puff Q12HR INH 04/13/17 21:00 (ZyrTEC) 10 mg DAILY PO 04/14/17 09:00 04/14/17 08:31 (Depakote Er) 500 mg BID PO 04/13/17 21:00 04/14/17 08:31 (Lexapro) 20 mg DAILY PO 04/14/17 09:00 04/14/17 08:31 (Lactulose Liq) 20 ml BID PO 04/13/17 21:00 04/14/17 08:31 (Lopressor) 12.5 mg BID PO 04/13/17 21:00 04/14/17 08:31 (ZyPREXA) 10 mg DAILY PO 04/14/17 09:00 04/14/17 08:31 (Trileptal) 300 mg BID PO 04/13/17 21:00 04/14/17 08:31 (Pravachol) 20 mg HS PO 04/13/17 21:00 04/13/17 21:43 (SEROquel) 100 mg HS PO 04/13/17 21:00 04/13/17 21:42 (Pill Splitter) 1 ea UNSCH PRN OTHER 04/13/17 17:00 Patient Own Medication PT OWN MED: DERMAZ... BID TOPICAL 04/13/17 21:00 Hold Family History Unknown at this time due to patient psychosis Social History Patient lives in [facility] Patient's Strengths (min. 2) Patient verbal able [facility] health care is overall cooperative Physical Exam Patient medically cleared ED exam reviewed and agreed with patient standing quietly in [place] with sc and family practice resident), she is in no acute distress, neck is supple, she is in no respiratory distress. No complaints of abdominal pain patient moving all 4 extremities without difficulty no unusual motor movements noted Vital Signs Vital Signs Date Time Temp Pulse Resp B/P Pulse Ox O2 Delivery O2 Flow Rate FiO2 04/14/17 06:32 97.9 76 16 115/73 98 04/13/17 17:23 Room Air Mental Status Examination Alert oriented place time and situation white female with very poor dentition. Appearance Somewhat disheveled Speech: Pressured, Rapid, Tangential (mildly) Orientation: x3 Memory: Impaired (describe) (fair) Thought Process: Linear Thought Content: Ideas of Reference Language Poor to fair Fund of Knowledge Poor to fair Hallucination Type: None Attention and Concentration: Other (fair) Suicidal Ideation: No (denies) Previous Suicide Attempts: No Homicidal Ideation: No (denies) Previous Homicide Attempts: No Insight: Poor (poor) Affect: Other (slight increase intensity decreased range) Mood: Euthymic (to somewhat restricted) Motor Activity: Normal gait Assessment & Plan Problem List: (1) Paranoid type schizophrenia, chronic state ICD Code: F20.0 Assessment & Plan Estimated LOS: 5-7 days patient continues somewhat delusional though denying voices or visions. See medication adjustment above. Will have counselor contact [facility] to verify bed availability Discharge Planning To be determined Request HC Surrog/Guard Advoc?: No Kt Bruce MD Apr 14, 2017 12:06
[2017-04-14 17:21] LABS: HEMOGLOBIN A1a 0.9 %; HEMOGLOBIN A1b 0.7 %; HEMOGLOBIN Ao 87.1 %; HEMOGLOBIN F 0.8 %; HEMOGLOBIN LA1C 1.6 %; HEMOGLOBIN P3 3.5 %
[2017-04-14 17:28] VITALS: BP 122/78; PULSE 88; RESP 17; TEMP 98.9; O2SAT 94
[2017-04-14] MEDS: QUEtiapine FUMARATE 100 MG TAB PO SCH (21:00)
[2017-04-14] MEDS: PRAVASTATIN SOD 20 MG TAB PO SCH (21:00)
[2017-04-15 05:36] VITALS: BP 125/88; PULSE 68; RESP 16; TEMP 97.9; O2SAT 98
[2017-04-15] MEDS: ESCITALOPRAM OXALATE 20 MG TAB PO SCH (08:40)
[2017-04-15] MEDS: OXcarbazepine 300 MG TAB PO SCH ×2 (08:40→21:28)
[2017-04-15] MEDS: DIVALPROEX SODIUM E.R. 500 MG TAB PO SCH ×2 (08:40→21:28)
[2017-04-15] MEDS: LACTULOSE SYRUP 20 GM/30 ML CUP PO SCH ×2 (08:41→21:29)
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
[2017-04-15] MEDS: CETIRIZINE HCL 10 MG TAB PO SCH (08:48)
[2017-04-15] MEDS: BUDESONIDE-FORMOTEROL 80/4.5 MCG INHALER INH SCH ×2 (09:00→21:29)
[2017-04-15] MEDS: METOPROLOL TARTRATE 25 MG TAB PO SCH ×2 (09:00→21:00)
--- NOTE | 2017-04-15 14:45 | HHI.PYPN ---
Subjective Remarks Patient seen in her room with medical student Yas, patient continues somewhat labile irritable and confused. She is compliant with the medication. Depakote level drawn this morning is 71. Will continue medication no change Review of Systems Except as stated in HPI: all other systems reviewed are Neg Objective Alert: Yes [place]: Person Mood: Angry Affect: Other (variable) Memory Intact: Comment (not tested) Hallucinations: Auditory Delusions: No Delusion Type: Paranoid Suicidal: Ideation (denies) Homicidal: Ideation (deneis any) Insight/Judgment Very poor Labs Test 04/15/17 07:27 Valproic Acid (Depakene) Level 71 MCG/ML Vitals/IOs Vital Signs Date Time Temp Pulse Resp B/P Pulse Ox O2 Delivery O2 Flow Rate FiO2 04/15/17 05:36 97.9 68 16 125/88 98 04/13/17 17:23 Room Air Intake and Output 04/14/17 04/14/17 04/15/17 08:00 16:00 00:00 Intake Total 240 ml Balance 240 ml Assessment & Plan Problem List: (1) Paranoid type schizophrenia, chronic state ICD Code: F20.0 Assessment & Plan Estimated LOS: days patient continue psychotic delusional, she is compliant medication. For now continue treatment Justification for Cont. Inpt. At this time patient will decompensate if place to the lower level of care Discharge Planning To be determined Kt Bruce MD Apr 15, 2017 14:45
[2017-04-15] MEDS: QUEtiapine FUMARATE 100 MG TAB PO SCH (21:28)
[2017-04-15] MEDS: PRAVASTATIN SOD 20 MG TAB PO SCH (21:28)
[2017-04-16 06:15] VITALS: BP 123/73; PULSE 72; RESP 16; TEMP 97.7; O2SAT 95
[2017-04-16] MEDS: BUDESONIDE-FORMOTEROL 80/4.5 MCG INHALER INH SCH ×2 (08:39→21:14)
[2017-04-16] MEDS: LACTULOSE SYRUP 20 GM/30 ML CUP PO SCH ×2 (08:40→21:00)
[2017-04-16] MEDS: METOPROLOL TARTRATE 25 MG TAB PO SCH ×2 (08:40→21:15)
[2017-04-16] MEDS: OXcarbazepine 300 MG TAB PO SCH ×2 (08:40→21:14)
[2017-04-16] MEDS: CETIRIZINE HCL 10 MG TAB PO SCH (08:40)
[2017-04-16] MEDS: ESCITALOPRAM OXALATE 20 MG TAB PO SCH (08:40)
[2017-04-16] MEDS: DIVALPROEX SODIUM E.R. 500 MG TAB PO SCH (08:40)
--- NOTE | 2017-04-16 09:44 | HHI.PYPN ---
Subjective Remarks Patient seen in her room with nurse Jesse, chart review, patient compliant medications. Patient showing no significant behavior problems. Job still anxiety effusion some disorganization when focusing on her living at [facility] and her opinion of the way she is being treated. There is some delusional appearing ideation related to her perception of how the staff treats her. For now continue treatment. We may need to consider placement options for this lady Review of Systems Except as stated in HPI: all other systems reviewed are Neg Objective Alert: Yes [place]: Person Mood: Angry Affect: Other (variable) Memory Intact: Comment (not tested) Hallucinations: Auditory Delusions: No Delusion Type: Paranoid Suicidal: Ideation (denies) Homicidal: Ideation (deneis any) Insight/Judgment Poor Vitals/IOs Vital Signs Date Time Temp Pulse Resp B/P Pulse Ox O2 Delivery O2 Flow Rate FiO2 04/16/17 06:15 97.7 72 16 123/73 95 04/13/17 17:23 Room Air Assessment & Plan Problem List: (1) Paranoid type schizophrenia, chronic state ICD Code: F20.0 Assessment & Plan Estimated LOS: days patient continues somewhat intrusive anxious paranoid delusional. Compliant medications. Depakote level drawn on 04/15 is 71 and 500 mg twice a day. Will increase dose of 100 mg a.m. 750 at bedtime check blood level in 4 days Justification for Cont. Inpt. At this time patient will decompensate in place to the lower level of care Discharge Planning To be determined Kt Bruce MD Apr 16, 2017 09:44
[2017-04-16 19:26] VITALS: BP 118/67; PULSE 79; RESP 18; TEMP 98.6; O2SAT 98
[2017-04-16] MEDS ORDERED: DIVALPROEX SODIUM E.R. 500 MG TAB PO SCH (21:00)
[2017-04-16] MEDS: PRAVASTATIN SOD 20 MG TAB PO SCH (21:14)
[2017-04-16] MEDS: QUEtiapine FUMARATE 100 MG TAB PO SCH (21:15)
[2017-04-16] MEDS: DIVALPROEX SODIUM E.R. 250 MG TAB PO SCH (21:41)
[2017-04-17 05:22] VITALS: BP 97/64; PULSE 80; RESP 16; TEMP 97.1; O2SAT 97
[2017-04-17] MEDS: LACTULOSE SYRUP 20 GM/30 ML CUP PO SCH ×2 (09:00→22:52)
[2017-04-17] MEDS: METOPROLOL TARTRATE 25 MG TAB PO SCH ×2 (09:00→22:53)
[2017-04-17] MEDS: BUDESONIDE-FORMOTEROL 80/4.5 MCG INHALER INH SCH ×2 (09:05→21:00)
[2017-04-17] MEDS: ESCITALOPRAM OXALATE 20 MG TAB PO SCH (09:09)
[2017-04-17] MEDS: CETIRIZINE HCL 10 MG TAB PO SCH (09:09)
[2017-04-17] MEDS: OXcarbazepine 300 MG TAB PO SCH ×2 (09:10→22:53)
[2017-04-17] MEDS: DIVALPROEX SODIUM E.R. 500 MG TAB PO SCH (09:10)
[2017-04-17 18:32] VITALS: BP 113/71; PULSE 93; RESP 17; TEMP 99; O2SAT 98
[2017-04-17] MEDS: DIVALPROEX SODIUM E.R. 250 MG TAB PO SCH (22:52)
[2017-04-17] MEDS: QUEtiapine FUMARATE 100 MG TAB PO SCH (22:54)
[2017-04-17] MEDS: PRAVASTATIN SOD 20 MG TAB PO SCH (22:55)
--- NOTE | 2017-04-17 22:55 | HHI.PYPN ---
Subjective Remarks Pt seen and discussed with staff. She remains psychotic and intrusive. During interview she demands that MD and RN touch her feet. She is disorganized in thought process. Compliant [facility] medications. No SI/HI Objective Alert: Yes [place]: Person Mood: Agitated Affect: Labile Memory Intact: Comment (not tested) Hallucinations: Auditory Delusions: Yes Delusion Type: Paranoid Suicidal: Ideation (denies) Homicidal: Ideation (deneis any) Insight/Judgment poor Remarks disorganized Vitals/IOs Vital Signs Date Time Temp Pulse Resp B/P Pulse Ox O2 Delivery O2 Flow Rate FiO2 04/17/17 18:32 99.0 93 17 113/71 98 04/13/17 17:23 Room Air Assessment & Plan Problem List: (1) Paranoid type schizophrenia, chronic state ICD Code: F20.0 Assessment & Plan Continue current tx plan. Estimated LOS: days Justification for Cont. Inpt. impairments in reality testing. Ivy Quiñonez MD Apr 17, 2017 22:55
[2017-04-17 23:49] VITALS: BP 137/87; PULSE 80; RESP 18; TEMP 97.6; O2SAT 95
[2017-04-18 06:27] VITALS: BP 105/62; PULSE 68; RESP 17; TEMP 97.1; O2SAT 95
[2017-04-18] MEDS: ESCITALOPRAM OXALATE 20 MG TAB PO SCH (09:00)
[2017-04-18] MEDS: DIVALPROEX SODIUM E.R. 500 MG TAB PO SCH (09:09)
[2017-04-18] MEDS: METOPROLOL TARTRATE 25 MG TAB PO SCH ×2 (09:09→21:29)
[2017-04-18] MEDS: OXcarbazepine 300 MG TAB PO SCH ×2 (09:10→21:29)
[2017-04-18] MEDS: CETIRIZINE HCL 10 MG TAB PO SCH (09:10)
[2017-04-18] MEDS: LACTULOSE SYRUP 20 GM/30 ML CUP PO SCH ×2 (09:12→21:00)
[2017-04-18] MEDS: BUDESONIDE-FORMOTEROL 80/4.5 MCG INHALER INH SCH ×2 (09:16→21:27)
--- NOTE | 2017-04-18 14:09 | HHI.PYPN ---
Subjective Remarks Pt seen and discussed with staff. She has been intrusive on unit and making constant delusional and bizarre statements. She has been compliant with medications. No SI/HI Objective Alert: Yes [place]: Person Mood: Other (labile) Affect: Labile Memory Intact: Comment (fair) Hallucinations: Auditory Delusions: Yes Delusion Type: Paranoid Suicidal: Ideation (denies) Homicidal: Ideation (deneis any) Insight/Judgment poor Vitals/IOs Vital Signs Date Time Temp Pulse Resp B/P Pulse Ox O2 Delivery O2 Flow Rate FiO2 04/18/17 06:27 97.1 68 17 105/62 95 Assessment & Plan Problem List: (1) Paranoid type schizophrenia, chronic state ICD Code: F20.0 Assessment & Plan Continue current tx plan. Estimated LOS: days Justification for Cont. Inpt. impairments in reality testing. Ivy Quiñonez MD Apr 18, 2017 14:09
[2017-04-18 18:35] VITALS: BP 129/74; PULSE 86; RESP 16; TEMP 98; O2SAT 95
[2017-04-18] MEDS: DIVALPROEX SODIUM E.R. 250 MG TAB PO SCH (21:28)
[2017-04-18] MEDS: PRAVASTATIN SOD 20 MG TAB PO SCH (21:29)
[2017-04-18] MEDS: QUEtiapine FUMARATE 100 MG TAB PO SCH (21:29)
[2017-04-19 06:00] VITALS: BP 124/85; PULSE 78; RESP 18; TEMP 97.4; O2SAT 93
[2017-04-19] MEDS: CETIRIZINE HCL 10 MG TAB PO SCH (08:54)
[2017-04-19] MEDS: BUDESONIDE-FORMOTEROL 80/4.5 MCG INHALER INH SCH ×2 (08:54→21:08)
[2017-04-19] MEDS: ESCITALOPRAM OXALATE 20 MG TAB PO SCH (08:54)
[2017-04-19] MEDS: DIVALPROEX SODIUM E.R. 500 MG TAB PO SCH (08:54)
[2017-04-19] MEDS: METOPROLOL TARTRATE 25 MG TAB PO SCH ×2 (08:54→21:06)
[2017-04-19] MEDS: OXcarbazepine 300 MG TAB PO SCH ×2 (08:54→21:06)
[2017-04-19] MEDS: LACTULOSE SYRUP 20 GM/30 ML CUP PO SCH ×2 (09:00→21:00)
--- NOTE | 2017-04-19 13:50 | PD.TTN ---
Present for Treatment Team Treatment Team Staff: Provider (Dr. Bruce), Nurse (Jesse), Psych Therapist ( CHOLO Pradhan), Occupational Therapist (Dario) Patient Problems 1. Discharge planning 2. Medication compliance 3. Knowledge deficit 4. Lack of coping skills Progress Toward Goals Provider Input: Dr. Bruce requested an update regarding patient's medication compliance, mental status, and plan for discharge. Nurse Input: Jesse reported the patient presents as needy, remains compliant with medications, and appears to be at her baseline. Psych Therapist Input: Counselor reported the patient may return to [facility] after she is assessed by Shae Antony from [facility] and is determined to be stable. Occupational Therapist Input: Patient is not participating in groups. Documentation Scribe: Cholo Pradhan Date Resolved: Apr 19, 2017 Nica Serna Apr 19, 2017 13:50
--- NOTE | 2017-04-19 15:52 | HHI.PYPN ---
Subjective Remarks Patient discussed with treatment team, patient seen in her room with nurse Jesse. Patient continues closely confused delusional focusing on her relationship with other residents at [facility]. We continue to work on a low placement issues. Patient denies suicidality at the present time denying voices also Review of Systems Except as stated in HPI: all other systems reviewed are Neg Objective Alert: Yes [place]: Person Mood: Other (labile) Affect: Labile Memory Intact: Comment (fair) Hallucinations: Auditory Delusions: Yes Delusion Type: Paranoid Suicidal: Ideation (denies) Homicidal: Ideation (deneis any) Insight/Judgment Very poor Labs Test 04/19/17 11:08 Valproic Acid (Depakene) Level 94 MCG/ML Vitals/IOs Vital Signs Date Time Temp Pulse Resp B/P Pulse Ox O2 Delivery O2 Flow Rate FiO2 04/19/17 06:00 97.4 78 18 124/85 93 Intake and Output 04/18/17 04/18/17 04/19/17 08:00 16:00 00:00 Intake Total 240 ml Balance 240 ml Assessment & Plan Problem List: (1) Paranoid type schizophrenia, chronic state ICD Code: F20.0 Assessment & Plan Estimated LOS: days patient continues psychotic and delusional. Though compliant medications, no significant behavioral problem Justification for Cont. Inpt. Stating patient decompensate the placed in a lower level of care Discharge Planning To be determined Kt Bruce MD Apr 19, 2017 15:52
[2017-04-19 18:27] VITALS: BP 121/59; PULSE 76; RESP 16; TEMP 98.2; O2SAT 98
[2017-04-19] MEDS: PRAVASTATIN SOD 20 MG TAB PO SCH (21:06)
[2017-04-19] MEDS: DIVALPROEX SODIUM E.R. 250 MG TAB PO SCH (21:06)
[2017-04-19] MEDS: QUEtiapine FUMARATE 100 MG TAB PO SCH (21:06)
[2017-04-20 05:57] VITALS: BP 128/82; PULSE 76; RESP 17; TEMP 97.2; O2SAT 97
[2017-04-20] MEDS: OXcarbazepine 300 MG TAB PO SCH ×2 (08:25→21:51)
[2017-04-20] MEDS: ESCITALOPRAM OXALATE 20 MG TAB PO SCH (08:25)
[2017-04-20] MEDS: BUDESONIDE-FORMOTEROL 80/4.5 MCG INHALER INH SCH ×2 (08:25→21:00)
[2017-04-20] MEDS: METOPROLOL TARTRATE 25 MG TAB PO SCH ×2 (08:26→21:52)
[2017-04-20] MEDS: LACTULOSE SYRUP 20 GM/30 ML CUP PO SCH ×2 (08:26→21:00)
[2017-04-20] MEDS: DIVALPROEX SODIUM E.R. 500 MG TAB PO SCH (08:26)
[2017-04-20] MEDS: CETIRIZINE HCL 10 MG TAB PO SCH (08:26)
[2017-04-20 15:26] VITALS: BP 118/57; PULSE 76; RESP 18; TEMP 98.1; O2SAT 97
--- NOTE | 2017-04-20 16:44 | HHI.PYPN ---
Subjective Remarks Patient seen in day room with medical student Yas, patient continues somewhat intrusive loud focusing her delusions on other residents at [facility]. And her refusal to return there. Depakote level drawn yesterday came back at 94. For now continue treatment Review of Systems Except as stated in HPI: all other systems reviewed are Neg Objective Alert: Yes [place]: Person Mood: Other (labile) Affect: Labile Memory Intact: Comment (fair) Hallucinations: Auditory Delusions: Yes Delusion Type: Paranoid Suicidal: Ideation (denies) Homicidal: Ideation (deneis any) Insight/Judgment Very poor Vitals/IOs Vital Signs Date Time Temp Pulse Resp B/P Pulse Ox O2 Delivery O2 Flow Rate FiO2 04/20/17 15:26 98.1 76 18 118/57 97 Assessment & Plan Problem List: (1) Paranoid type schizophrenia, chronic state ICD Code: F20.0 Assessment & Plan Estimated LOS: days patient continues psychotic delusional though compliant with medications. For now continue treatment Justification for Cont. Inpt. At this time patient will decompensate now placed in an appropriate level of care Discharge Planning To be determined Kt Bruce MD Apr 20, 2017 16:44
[2017-04-20] MEDS: PRAVASTATIN SOD 20 MG TAB PO SCH (21:51)
[2017-04-20] MEDS: QUEtiapine FUMARATE 100 MG TAB PO SCH (21:54)
[2017-04-20] MEDS: DIVALPROEX SODIUM E.R. 250 MG TAB PO SCH (21:54)
[2017-04-21 05:03] VITALS: BP 125/72; PULSE 65; RESP 18; TEMP 97.8; O2SAT 97
[2017-04-21] MEDS: ESCITALOPRAM OXALATE 20 MG TAB PO SCH (08:54)
[2017-04-21] MEDS: DIVALPROEX SODIUM E.R. 500 MG TAB PO SCH (08:54)
[2017-04-21] MEDS: LACTULOSE SYRUP 20 GM/30 ML CUP PO SCH ×2 (08:54→21:32)
[2017-04-21] MEDS: CETIRIZINE HCL 10 MG TAB PO SCH (08:54)
[2017-04-21] MEDS: OXcarbazepine 300 MG TAB PO SCH ×2 (08:55→21:32)
[2017-04-21] MEDS: METOPROLOL TARTRATE 25 MG TAB PO SCH ×2 (08:57→21:32)
[2017-04-21] MEDS: BUDESONIDE-FORMOTEROL 80/4.5 MCG INHALER INH SCH ×2 (08:58→21:32)
--- NOTE | 2017-04-21 13:37 | HHI.PYPN ---
Subjective Remarks Patient seen in her room nurse Karen, patient calm cooperative with me continue somewhat concerned about placement. No other appears she some difficulty with finding alternative placements [facility]. We will continue to discuss this with her she showing some resistance related to her feelings about other residents at that facility. However the present time I feel patient has improved the point where she no longer meets Stoddard criteria thus I'll lift Stoddard act allow the patient to sign voluntary she is willing to do this clinic finalize placement issues Review of Systems Except as stated in HPI: all other systems reviewed are Neg Objective Alert: Yes [place]: Person Mood: Other (labile) Affect: Labile Memory Intact: Comment (fair) Hallucinations: Auditory Delusions: Yes Delusion Type: Paranoid Suicidal: Ideation (denies) Homicidal: Ideation (deneis any) Insight/Judgment Very poor Vitals/IOs Vital Signs Date Time Temp Pulse Resp B/P Pulse Ox O2 Delivery O2 Flow Rate FiO2 04/21/17 05:03 97.8 65 18 125/72 97 Assessment & Plan Problem List: (1) Paranoid type schizophrenia, chronic state ICD Code: F20.0 Assessment & Plan Estimated LOS: days patient psychosis is slowly resolving. She is compliant medications. Will lift Stoddard act patient may sign voluntary. Continue to work on placement issues Justification for Cont. Inpt. This time patient may decompensate no place to inappropriate level of care Discharge Planning To be determined Kt Bruce MD Apr 21, 2017 13:37
[2017-04-21] MEDS: QUEtiapine FUMARATE 100 MG TAB PO SCH (21:31)
[2017-04-21] MEDS: PRAVASTATIN SOD 20 MG TAB PO SCH (21:32)
[2017-04-21] MEDS: DIVALPROEX SODIUM E.R. 250 MG TAB PO SCH (21:32)
[2017-04-22 05:36] VITALS: BP 99/55; PULSE 65; RESP 16; TEMP 97.6; O2SAT 95
[2017-04-22] MEDS: DIVALPROEX SODIUM E.R. 500 MG TAB PO SCH (08:57)
[2017-04-22] MEDS: METOPROLOL TARTRATE 25 MG TAB PO SCH ×2 (08:57→21:09)
[2017-04-22] MEDS: ESCITALOPRAM OXALATE 20 MG TAB PO SCH (08:57)
[2017-04-22] MEDS: OXcarbazepine 300 MG TAB PO SCH ×2 (08:57→21:09)
[2017-04-22] MEDS: CETIRIZINE HCL 10 MG TAB PO SCH (08:57)
[2017-04-22] MEDS: LACTULOSE SYRUP 20 GM/30 ML CUP PO SCH ×2 (08:58→21:09)
[2017-04-22] MEDS: BUDESONIDE-FORMOTEROL 80/4.5 MCG INHALER INH SCH ×2 (08:58→21:11)
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
[2017-04-22] MEDS: QUEtiapine FUMARATE 25 MG TAB PO SCH (17:04)
[2017-04-22 18:25] VITALS: BP 112/62; PULSE 72; RESP 16; TEMP 98.7; O2SAT 96
[2017-04-22] MEDS: DIVALPROEX SODIUM E.R. 250 MG TAB PO SCH (21:08)
[2017-04-22] MEDS: PRAVASTATIN SOD 20 MG TAB PO SCH (21:09)
[2017-04-22] MEDS: QUEtiapine FUMARATE 100 MG TAB PO SCH (21:10)
[2017-04-23 05:32] VITALS: BP 142/89; PULSE 68; RESP 18; TEMP 97.3
[2017-04-23] MEDS: METOPROLOL TARTRATE 25 MG TAB PO SCH ×2 (08:16→21:27)
[2017-04-23] MEDS: ESCITALOPRAM OXALATE 20 MG TAB PO SCH (08:16)
[2017-04-23] MEDS: LACTULOSE SYRUP 20 GM/30 ML CUP PO SCH ×2 (08:16→21:28)
[2017-04-23] MEDS: DIVALPROEX SODIUM E.R. 500 MG TAB PO SCH (08:16)
[2017-04-23] MEDS: QUEtiapine FUMARATE 25 MG TAB PO SCH ×2 (08:16→18:13)
[2017-04-23] MEDS: BUDESONIDE-FORMOTEROL 80/4.5 MCG INHALER INH SCH ×2 (08:16→21:27)
[2017-04-23] MEDS: OXcarbazepine 300 MG TAB PO SCH ×2 (08:16→21:28)
--- NOTE | 2017-04-23 09:56 | HHI.PYPN ---
Subjective Remarks Patient seen in the [place] with Sohan, patient continues somewhat delusional [facility] has talked with staff there who states Libra has making multiple phone calls to that facility stating that her boyfriend is staying with her here at [facility]. Staff from [facility] feel she still to labile delusional to return to that facility at this time. Will increase the scheduled daytime Seroquel to 100 mg twice a day continue at bedtime no change Review of Systems Except as stated in HPI: all other systems reviewed are Neg Objective Alert: Yes [place]: Person Mood: Other (labile) Affect: Labile Memory Intact: Comment (fair) Hallucinations: Auditory Delusions: Yes Delusion Type: Paranoid Suicidal: Ideation (denies) Homicidal: Ideation (deneis any) Insight/Judgment Very Poor Vitals/IOs Vital Signs Date Time Temp Pulse Resp B/P Pulse Ox O2 Delivery O2 Flow Rate FiO2 04/23/17 05:32 97.3 68 18 142/89 04/22/17 18:25 96 Intake and Output 04/22/17 04/22/17 04/23/17 08:00 16:00 00:00 Intake Total 480 ml Balance 480 ml Assessment & Plan Problem List: (1) Paranoid type schizophrenia, chronic state ICD Code: F20.0 Assessment & Plan Estimated LOS: days patient remains delusional psychotic, no insight into her disease. She medication adjustments above Justification for Cont. Inpt. At this time patient will decompensate if placed in a lower level of care Discharge Planning To be determined Kt Bruce MD Apr 23, 2017 09:56
[2017-04-23] MEDS: CETIRIZINE HCL 10 MG TAB PO SCH (10:11)
[2017-04-23] MEDS: PRAVASTATIN SOD 20 MG TAB PO SCH (21:28)
[2017-04-23] MEDS: QUEtiapine FUMARATE 100 MG TAB PO SCH (21:28)
[2017-04-23] MEDS: DIVALPROEX SODIUM E.R. 250 MG TAB PO SCH (21:29)
[2017-04-24 05:37] VITALS: BP 104/58; PULSE 77; RESP 17; TEMP 97.9; O2SAT 94
[2017-04-24] MEDS: METOPROLOL TARTRATE 25 MG TAB PO SCH ×2 (09:00→20:40)
[2017-04-24] MEDS: LACTULOSE SYRUP 20 GM/30 ML CUP PO SCH ×2 (09:02→20:41)
[2017-04-24] MEDS: ESCITALOPRAM OXALATE 20 MG TAB PO SCH (09:02)
[2017-04-24] MEDS: OXcarbazepine 300 MG TAB PO SCH ×2 (09:03→20:39)
[2017-04-24] MEDS: CETIRIZINE HCL 10 MG TAB PO SCH (09:03)
[2017-04-24] MEDS: DIVALPROEX SODIUM E.R. 500 MG TAB PO SCH (09:03)
[2017-04-24] MEDS: QUEtiapine FUMARATE 25 MG TAB PO SCH ×2 (09:03→16:49)
[2017-04-24] MEDS: BUDESONIDE-FORMOTEROL 80/4.5 MCG INHALER INH SCH ×2 (09:07→20:43)
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
[2017-04-24 17:00] VITALS: BP 116/65; PULSE 82; RESP 17; TEMP 98; O2SAT 95
[2017-04-24] MEDS: PRAVASTATIN SOD 20 MG TAB PO SCH (20:39)
[2017-04-24] MEDS: QUEtiapine FUMARATE 100 MG TAB PO SCH (20:40)
[2017-04-24] MEDS: DIVALPROEX SODIUM E.R. 250 MG TAB PO SCH (20:41)
[2017-04-25 07:05] VITALS: BP 111/65; PULSE 64; RESP 16; O2SAT 96
[2017-04-25] MEDS: QUEtiapine FUMARATE 25 MG TAB PO SCH ×2 (09:00→16:45)
[2017-04-25] MEDS: DIVALPROEX SODIUM E.R. 500 MG TAB PO SCH (09:00)
[2017-04-25] MEDS: LACTULOSE SYRUP 20 GM/30 ML CUP PO SCH ×2 (09:00→21:42)
[2017-04-25] MEDS: METOPROLOL TARTRATE 25 MG TAB PO SCH ×2 (09:00→21:43)
[2017-04-25] MEDS: OXcarbazepine 300 MG TAB PO SCH ×2 (09:00→21:42)
[2017-04-25] MEDS: BUDESONIDE-FORMOTEROL 80/4.5 MCG INHALER INH SCH ×2 (09:00→21:58)
[2017-04-25] MEDS: ESCITALOPRAM OXALATE 20 MG TAB PO SCH (09:00)
[2017-04-25] MEDS: CETIRIZINE HCL 10 MG TAB PO SCH (09:00)
--- NOTE | 2017-04-25 16:06 | HHI.PYPN ---
Subjective Remarks Patient was seen and case discussed with nursing. Patient remains disheveled and disorganized. She is showering however. Thought processes loose and disorganized. Objective Alert: Yes [place]: Person Mood: Oppositional Affect: Labile (less so) Memory Intact: Comment (fair) Hallucinations: Auditory (responding to internal stimuli) Delusions: Yes Delusion Type: Paranoid Suicidal: Ideation (denies) Homicidal: Ideation (deneis any) Insight/Judgment Poor Vitals/IOs Vital Signs Date Time Temp Pulse Resp B/P (MAP) Pulse Ox O2 Delivery O2 Flow Rate FiO2 04/25/17 07:05 64 16 111/65 (80) 96 04/24/17 17:00 98.0 Assessment & Plan Problem List: (1) Paranoid type schizophrenia, chronic state ICD Codes: F20.0 - Paranoid schizophrenia Status: Acute Assessment & Plan Continue current treatment plan Justification for Cont. Inpt. Patient would decompensate in a less restrictive setting Evans Redding DO Apr 25, 2017 16:06
[2017-04-25] MEDS: QUEtiapine FUMARATE 100 MG TAB PO SCH (21:00)
[2017-04-25] MEDS: DIVALPROEX SODIUM E.R. 250 MG TAB PO SCH (21:42)
[2017-04-25] MEDS: PRAVASTATIN SOD 20 MG TAB PO SCH (21:42)
[2017-04-26] MEDS: METOPROLOL TARTRATE 25 MG TAB PO SCH ×2 (09:00→21:26)
[2017-04-26] MEDS: LACTULOSE SYRUP 20 GM/30 ML CUP PO SCH ×2 (09:08→21:00)
[2017-04-26] MEDS: DIVALPROEX SODIUM E.R. 500 MG TAB PO SCH (09:09)
[2017-04-26] MEDS: CETIRIZINE HCL 10 MG TAB PO SCH (09:09)
[2017-04-26] MEDS: ESCITALOPRAM OXALATE 20 MG TAB PO SCH (09:09)
[2017-04-26] MEDS: QUEtiapine FUMARATE 25 MG TAB PO SCH ×2 (09:09→15:20)
[2017-04-26] MEDS: OXcarbazepine 300 MG TAB PO SCH ×2 (09:09→21:24)
[2017-04-26] MEDS: BUDESONIDE-FORMOTEROL 80/4.5 MCG INHALER INH SCH ×2 (09:09→21:00)
--- NOTE | 2017-04-26 17:04 | HHI.PYPN ---
Subjective Remarks Patient seen in day room with nurse Shahla, chart reviewed, patient compliant medications. Patient continues with her statements of wanting to get a new roommate if she would be returned to [facility] though she has had multiple roommates in the past she showing the same behaviors repeatedly related to roommates Review of Systems Except as stated in HPI: all other systems reviewed are Neg Objective Alert: Yes [place]: Person Mood: Oppositional Affect: Labile (less so) Memory Intact: Comment (fair) Hallucinations: Auditory (responding to internal stimuli) Delusions: Yes Delusion Type: Paranoid Suicidal: Ideation (denies) Homicidal: Ideation (deneis any) Insight/Judgment Very poor Vitals/IOs Vital Signs Date Time Temp Pulse Resp B/P (MAP) Pulse Ox O2 Delivery O2 Flow Rate FiO2 04/25/17 07:05 64 16 111/65 (80) 96 04/24/17 17:00 98.0 Assessment & Plan Problem List: (1) Paranoid type schizophrenia, chronic state ICD Codes: F20.0 - Paranoid schizophrenia Status: Acute Assessment & Plan Estimated LOS: days patient continue psychotic delusional and labile, compliant medication Justification for Cont. Inpt. At this time patient will decompensate now placed in an appropriate level of care Discharge Planning To be determined Kt Bruce MD Apr 26, 2017 17:04
[2017-04-26 20:00] VITALS: BP 109/67; PULSE 63; RESP 17; TEMP 98.7; O2SAT 97
[2017-04-26] MEDS: DIVALPROEX SODIUM E.R. 250 MG TAB PO SCH (21:00)
[2017-04-26] MEDS: PRAVASTATIN SOD 20 MG TAB PO SCH (21:00)
[2017-04-26] MEDS: QUEtiapine FUMARATE 100 MG TAB PO SCH (21:25)
[2017-04-27 06:11] VITALS: BP 101/63; PULSE 66; RESP 16; TEMP 97.8; O2SAT 96
[2017-04-27] MEDS: ESCITALOPRAM OXALATE 20 MG TAB PO SCH (09:00)
[2017-04-27] MEDS: METOPROLOL TARTRATE 25 MG TAB PO SCH ×3 (09:00→20:24)
[2017-04-27] MEDS: QUEtiapine FUMARATE 25 MG TAB PO SCH ×2 (09:00→16:56)
[2017-04-27] MEDS: LACTULOSE SYRUP 20 GM/30 ML CUP PO SCH ×2 (09:00→20:21)
[2017-04-27] MEDS: DIVALPROEX SODIUM E.R. 500 MG TAB PO SCH (09:00)
[2017-04-27] MEDS: OXcarbazepine 300 MG TAB PO SCH ×2 (09:00→20:22)
[2017-04-27] MEDS: BUDESONIDE-FORMOTEROL 80/4.5 MCG INHALER INH SCH ×2 (09:00→20:23)
[2017-04-27] MEDS: CETIRIZINE HCL 10 MG TAB PO SCH (10:06)
--- NOTE | 2017-04-27 15:59 | HHI.PYPN ---
Subjective Remarks Patient seen in day room with floor staff, patient continues loud and intrusive continues to demand new roommates packet [place]. However staff has contacted [facility] and this has been done in the past. For now continue treatment. Placement may become more problematic Review of Systems Except as stated in HPI: all other systems reviewed are Neg Objective Alert: Yes [place]: Person Mood: Oppositional Affect: Labile (less so) Memory Intact: Comment (fair) Hallucinations: Auditory (responding to internal stimuli) Delusions: Yes Delusion Type: Paranoid Suicidal: Ideation (denies) Homicidal: Ideation (deneis any) Insight/Judgment Very poor Vitals/IOs Vital Signs Date Time Temp Pulse Resp B/P (MAP) Pulse Ox O2 Delivery O2 Flow Rate FiO2 04/27/17 06:11 97.8 66 16 101/63 (76) 96 Assessment & Plan Problem List: (1) Paranoid type schizophrenia, chronic state ICD Codes: F20.0 - Paranoid schizophrenia Status: Acute Assessment & Plan Estimated LOS: days patient continues somewhat psychotic and delusional. Compliant medications. Justification for Cont. Inpt. At this time patient will decompensate in place to the lower level of care Discharge Planning To be determined Kt Bruce MD Apr 27, 2017 15:59
[2017-04-27 18:16] VITALS: BP 99/64; PULSE 68; RESP 18; TEMP 97.7; O2SAT 97
[2017-04-27] MEDS: DIVALPROEX SODIUM E.R. 250 MG TAB PO SCH (20:21)
[2017-04-27] MEDS: QUEtiapine FUMARATE 100 MG TAB PO SCH (20:22)
[2017-04-27] MEDS: PRAVASTATIN SOD 20 MG TAB PO SCH (20:22)
[2017-04-28 06:08] VITALS: BP 95/58; PULSE 67; RESP 16; TEMP 97.3; O2SAT 95
[2017-04-28] MEDS: LACTULOSE SYRUP 20 GM/30 ML CUP PO SCH ×2 (09:00→21:00)
[2017-04-28] MEDS: BUDESONIDE-FORMOTEROL 80/4.5 MCG INHALER INH SCH ×2 (09:00→21:20)
[2017-04-28] MEDS: OXcarbazepine 300 MG TAB PO SCH ×2 (09:12→21:19)
[2017-04-28] MEDS: METOPROLOL TARTRATE 25 MG TAB PO SCH ×2 (09:12→21:19)
[2017-04-28] MEDS: CETIRIZINE HCL 10 MG TAB PO SCH (09:12)
[2017-04-28] MEDS: ESCITALOPRAM OXALATE 20 MG TAB PO SCH (09:12)
[2017-04-28] MEDS: QUEtiapine FUMARATE 25 MG TAB PO SCH ×2 (09:13→16:16)
[2017-04-28] MEDS: DIVALPROEX SODIUM E.R. 500 MG TAB PO SCH (09:13)
--- NOTE | 2017-04-28 13:25 | HHI.PYPN ---
Subjective Remarks Patient seen in day room nurse Huang, chart reviewed, patient compliant medications. Patient continues delusional focusing on her roommates and issues related to [facility]. However she is been no behavioral problems on the unit. For now continue treatment Review of Systems Except as stated in HPI: all other systems reviewed are Neg Objective Alert: Yes [place]: Person Mood: Oppositional Affect: Labile (less so) Memory Intact: Comment (fair) Hallucinations: Auditory (responding to internal stimuli) Delusions: Yes Delusion Type: Paranoid Suicidal: Ideation (denies) Homicidal: Ideation (deneis any) Insight/Judgment Poor Vitals/IOs Vital Signs Date Time Temp Pulse Resp B/P (MAP) Pulse Ox O2 Delivery O2 Flow Rate FiO2 04/28/17 06:08 97.3 67 16 95/58 (70) 95 Assessment & Plan Problem List: (1) Paranoid type schizophrenia, chronic state ICD Codes: F20.0 - Paranoid schizophrenia Status: Acute Assessment & Plan Estimated LOS: days patient continues delusional somewhat psychotic focusing on issues with various roommates at [facility]. Patient compliant medications. Justification for Cont. Inpt. At this time patient may decompensate if not placed in an appropriate level of care Discharge Planning To be determined Kt Bruce MD Apr 28, 2017 13:25
[2017-04-28 18:00] VITALS: BP 121/68; PULSE 69; RESP 18; TEMP 97.5; O2SAT 98
[2017-04-28] MEDS: PRAVASTATIN SOD 20 MG TAB PO SCH (21:18)
[2017-04-28] MEDS: QUEtiapine FUMARATE 100 MG TAB PO SCH (21:18)
[2017-04-28] MEDS: DIVALPROEX SODIUM E.R. 250 MG TAB PO SCH (21:18)
[2017-04-29 06:02] VITALS: BP 110/61; PULSE 59; RESP 17; TEMP 97.8; O2SAT 93
[2017-04-29] MEDS: METOPROLOL TARTRATE 25 MG TAB PO SCH ×2 (09:00→22:05)
[2017-04-29] MEDS: QUEtiapine FUMARATE 25 MG TAB PO SCH (09:23)
[2017-04-29] MEDS: ESCITALOPRAM OXALATE 20 MG TAB PO SCH (09:23)
[2017-04-29] MEDS: CETIRIZINE HCL 10 MG TAB PO SCH (09:23)
[2017-04-29] MEDS: LACTULOSE SYRUP 20 GM/30 ML CUP PO SCH ×2 (09:24→22:05)
[2017-04-29] MEDS: DIVALPROEX SODIUM E.R. 500 MG TAB PO SCH (09:24)
[2017-04-29] MEDS: OXcarbazepine 300 MG TAB PO SCH ×2 (09:24→22:05)
[2017-04-29] MEDS: BUDESONIDE-FORMOTEROL 80/4.5 MCG INHALER INH SCH ×2 (09:24→21:00)
--- NOTE | 2017-04-29 11:39 | HHI.PYPN ---
Subjective Remarks Patient seen in [place], with nurse Joann, chart reviewed. Continue somewhat loud and intrusive interest focusing on placement roommates and while her own room and [place]. She is compliant with her medications. Will increase daytime Seroquel to 100 mg twice a day continue at bedtime dose no change Review of Systems Except as stated in HPI: all other systems reviewed are Neg Objective Alert: Yes [place]: Person Mood: Oppositional Affect: Labile (less so) Memory Intact: Comment (fair) Hallucinations: Auditory (responding to internal stimuli) Delusions: Yes Delusion Type: Paranoid Suicidal: Ideation (denies) Homicidal: Ideation (deneis any) Insight/Judgment Poor Vitals/IOs Vital Signs Date Time Temp Pulse Resp B/P (MAP) Pulse Ox O2 Delivery O2 Flow Rate FiO2 04/29/17 06:02 97.8 59 17 110/61 (77) 93 Assessment & Plan Problem List: (1) Paranoid type schizophrenia, chronic state ICD Codes: F20.0 - Paranoid schizophrenia Status: Acute Assessment & Plan Estimated LOS: days patient continue psychotic intrusive and delusional. Please to medication adjustments above Justification for Cont. Inpt. At this time patient will decompensate if placed to lower level of care Discharge Planning To be determined Kt Bruce MD Apr 29, 2017 11:39
[2017-04-29] MEDS: QUEtiapine FUMARATE 100 MG TAB PO SCH ×2 (16:37→22:05)
[2017-04-29 18:56] VITALS: BP 131/82; PULSE 74; RESP 18; TEMP 98; O2SAT 96
[2017-04-29] MEDS: DIVALPROEX SODIUM E.R. 250 MG TAB PO SCH (22:04)
[2017-04-29] MEDS: PRAVASTATIN SOD 20 MG TAB PO SCH (22:05)
[2017-04-30 05:34] VITALS: BP 96/54; PULSE 56; RESP 16; TEMP 97.5; O2SAT 100
[2017-04-30] MEDS: ESCITALOPRAM OXALATE 20 MG TAB PO SCH (08:37)
[2017-04-30] MEDS: OXcarbazepine 300 MG TAB PO SCH ×2 (08:37→21:40)
[2017-04-30] MEDS: CETIRIZINE HCL 10 MG TAB PO SCH (08:37)
[2017-04-30] MEDS: METOPROLOL TARTRATE 25 MG TAB PO SCH ×2 (08:39→21:40)
[2017-04-30] MEDS: DIVALPROEX SODIUM E.R. 500 MG TAB PO SCH (08:40)
[2017-04-30] MEDS: QUEtiapine FUMARATE 100 MG TAB PO SCH ×3 (08:43→21:40)
[2017-04-30] MEDS: LACTULOSE SYRUP 20 GM/30 ML CUP PO SCH ×2 (08:43→21:40)
[2017-04-30] MEDS: BUDESONIDE-FORMOTEROL 80/4.5 MCG INHALER INH SCH ×2 (08:43→21:39)
--- NOTE | 2017-04-30 15:54 | HHI.PYPN ---
Subjective Remarks Patient seen in her room with nurse Joann, chart reviewed, patient compliant medications. Continues loosely disorganized, focusing still on placement and her desire for new roommates at [facility]. Otherwise no behavioral problems. Review of Systems Except as stated in HPI: all other systems reviewed are Neg Objective Alert: Yes [place]: Person Mood: Oppositional Affect: Labile (less so) Memory Intact: Comment (fair) Hallucinations: Auditory (responding to internal stimuli) Delusions: Yes Delusion Type: Paranoid Suicidal: Ideation (denies) Homicidal: Ideation (deneis any) Insight/Judgment Very poor Vitals/IOs Vital Signs Date Time Temp Pulse Resp B/P (MAP) Pulse Ox O2 Delivery O2 Flow Rate FiO2 04/30/17 05:34 97.5 56 16 96/54 (68) 100 Assessment & Plan Problem List: (1) Paranoid type schizophrenia, chronic state ICD Codes: F20.0 - Paranoid schizophrenia Status: Acute Assessment & Plan Estimated LOS: days patient continues psychotic delusional, but no behavior problems, compliant medications. For now continue treatment Justification for Cont. Inpt. This time patient may decompensate if not place to appropriate level of care Discharge Planning To be determined Kt Bruce MD Apr 30, 2017 15:54
[2017-04-30 17:53] VITALS: BP 118/74; PULSE 69; RESP 16; TEMP 98.1; O2SAT 94
[2017-04-30] MEDS: DIVALPROEX SODIUM E.R. 250 MG TAB PO SCH (21:40)
[2017-04-30] MEDS: PRAVASTATIN SOD 20 MG TAB PO SCH (21:40)
[2017-05-01 06:10] VITALS: BP 112/62; PULSE 63; RESP 17; TEMP 98.4; O2SAT 96
[2017-05-01] MEDS: BUDESONIDE-FORMOTEROL 80/4.5 MCG INHALER INH SCH ×2 (08:43→21:07)
[2017-05-01] MEDS: METOPROLOL TARTRATE 25 MG TAB PO SCH ×2 (08:45→21:07)
[2017-05-01] MEDS: LACTULOSE SYRUP 20 GM/30 ML CUP PO SCH ×2 (08:45→21:09)
[2017-05-01] MEDS: CETIRIZINE HCL 10 MG TAB PO SCH (08:45)
[2017-05-01] MEDS: DIVALPROEX SODIUM E.R. 500 MG TAB PO SCH (08:46)
[2017-05-01] MEDS: OXcarbazepine 300 MG TAB PO SCH ×2 (08:46→21:08)
[2017-05-01] MEDS: ESCITALOPRAM OXALATE 20 MG TAB PO SCH (08:46)
[2017-05-01] MEDS: QUEtiapine FUMARATE 100 MG TAB PO SCH ×3 (08:50→21:08)
--- NOTE | 2017-05-01 13:40 | HHI.PYPN ---
Subjective Remarks Pt seen and discussed with staff. Pt has been less intrusive with improved behavioral control today.She is compliant with medications and tolerating without side effects. NO SI/HI. Speech is somewhat repetitive ("All fine" , "All good", "all right" ) Objective Alert: Yes [place]: Person, Place Mood: Calm Affect: Restricted Memory Intact: Comment (fair) Hallucinations: Auditory (responding to internal stimuli) Delusions: Yes Delusion Type: Paranoid (decreased) Suicidal: Ideation (denies) Homicidal: Ideation (deneis any) Insight/Judgment poor Vitals/IOs Vital Signs Date Time Temp Pulse Resp B/P (MAP) Pulse Ox O2 Delivery O2 Flow Rate FiO2 05/01/17 06:10 98.4 63 17 112/62 (79) 96 Assessment & Plan Problem List: (1) Paranoid type schizophrenia, chronic state ICD Codes: F20.0 - Paranoid schizophrenia Status: Acute Assessment & Plan Pt improving. Continue current tx plan. Estimated LOS: days Justification for Cont. Inpt. risk of decompensation Ivy Quiñonez MD May 01, 2017 13:40
[2017-05-01 17:54] VITALS: BP 112/65; PULSE 59; RESP 18; TEMP 98.1; O2SAT 97
[2017-05-01] MEDS: PRAVASTATIN SOD 20 MG TAB PO SCH (21:00)
[2017-05-01] MEDS: DIVALPROEX SODIUM E.R. 250 MG TAB PO SCH (21:09)
[2017-05-02 05:26] VITALS: BP 117/70; PULSE 71; RESP 16; TEMP 98.4; O2SAT 96
[2017-05-02] MEDS: LACTULOSE SYRUP 20 GM/30 ML CUP PO SCH ×2 (09:09→21:58)
[2017-05-02] MEDS: BUDESONIDE-FORMOTEROL 80/4.5 MCG INHALER INH SCH ×2 (09:10→21:58)
[2017-05-02] MEDS: DIVALPROEX SODIUM E.R. 500 MG TAB PO SCH (09:11)
[2017-05-02] MEDS: OXcarbazepine 300 MG TAB PO SCH ×2 (09:13→22:00)
[2017-05-02] MEDS: CETIRIZINE HCL 10 MG TAB PO SCH (09:13)
[2017-05-02] MEDS: ESCITALOPRAM OXALATE 20 MG TAB PO SCH (09:13)
[2017-05-02] MEDS: METOPROLOL TARTRATE 25 MG TAB PO SCH ×2 (09:13→21:00)
[2017-05-02] MEDS: QUEtiapine FUMARATE 100 MG TAB PO SCH ×3 (09:15→21:59)
[2017-05-02 16:24] VITALS: BP 97/67; PULSE 71; RESP 18; TEMP 97.1; O2SAT 96
--- NOTE | 2017-05-02 16:48 | HHI.PYPN ---
Subjective Remarks Pt seen and discussed with staff. She has been compliant with medications and has been cooperative with care. No behavioral problems on unit. She keeps to herself and has not gone out for fresh air. She rambles on about roommate at [facility] who she believes is trying to kill her. Objective Alert: Yes [place]: Person, Place Mood: Calm Affect: Restricted Memory Intact: Comment (fair) Hallucinations: Auditory (decreased) Delusions: Yes Delusion Type: Paranoid (decreased) Suicidal: Ideation (denies) Homicidal: Ideation (deneis any) Insight/Judgment poor Vitals/IOs Vital Signs Date Time Temp Pulse Resp B/P (MAP) Pulse Ox O2 Delivery O2 Flow Rate FiO2 05/02/17 16:24 97.1 71 18 97/67 (48) 96 Assessment & Plan Problem List: (1) Paranoid type schizophrenia, chronic state ICD Codes: F20.0 - Paranoid schizophrenia Status: Acute Assessment & Plan Continue current tx plan. Estimated LOS: days Justification for Cont. Inpt. impairments in reality testing and risk of decompensation Ivy Quiñonez MD May 02, 2017 16:48
[2017-05-02 21:15] VITALS: BP_SYST 89; BP_SYST 96; BP_DIAS 56; BP_DIAS 68; PULSE 65; RESP 17; O2SAT 98
[2017-05-02] MEDS: DIVALPROEX SODIUM E.R. 250 MG TAB PO SCH (21:59)
[2017-05-02] MEDS: PRAVASTATIN SOD 20 MG TAB PO SCH (21:59)
[2017-05-03 06:06] VITALS: BP 131/78; PULSE 57; RESP 18; TEMP 98.1; O2SAT 97
[2017-05-03] MEDS: BUDESONIDE-FORMOTEROL 80/4.5 MCG INHALER INH SCH ×2 (08:42→20:55)
[2017-05-03] MEDS: LACTULOSE SYRUP 20 GM/30 ML CUP PO SCH ×2 (08:43→20:55)
[2017-05-03] MEDS: OXcarbazepine 300 MG TAB PO SCH ×2 (08:43→20:56)
[2017-05-03] MEDS: DIVALPROEX SODIUM E.R. 500 MG TAB PO SCH (08:43)
[2017-05-03] MEDS: METOPROLOL TARTRATE 25 MG TAB PO SCH ×2 (08:43→20:56)
[2017-05-03] MEDS: CETIRIZINE HCL 10 MG TAB PO SCH (08:43)
[2017-05-03] MEDS: ESCITALOPRAM OXALATE 20 MG TAB PO SCH (08:43)
[2017-05-03] MEDS: QUEtiapine FUMARATE 100 MG TAB PO SCH ×3 (08:48→20:56)
--- NOTE | 2017-05-03 15:04 | HHI.PYPN ---
Subjective Remarks Patient seen in [place] with nurse Brinda, chart reviewed, patient compliant medications. Patient no behavior problem on unit. Limited delusions related to roommates in a need for new roommates persists. Review of Systems Except as stated in HPI: all other systems reviewed are Neg Objective Alert: Yes [place]: Person, Place Mood: Calm Affect: Restricted Memory Intact: Comment (fair) Hallucinations: Auditory (decreased) Delusions: Yes Delusion Type: Paranoid (decreased) Suicidal: Ideation (denies) Homicidal: Ideation (deneis any) Insight/Judgment Poor Vitals/IOs Vital Signs Date Time Temp Pulse Resp B/P (MAP) Pulse Ox O2 Delivery O2 Flow Rate FiO2 05/03/17 06:06 98.1 57 18 131/78 (95) 97 Assessment & Plan Problem List: (1) Paranoid type schizophrenia, chronic state ICD Codes: F20.0 - Paranoid schizophrenia Status: Acute Assessment & Plan Estimated LOS: days patient remains psychotic delusional no behavioral problems Justification for Cont. Inpt. At this time patient decompensate if placed in a lower level of care Discharge Planning To be determined Kt Bruce MD May 03, 2017 15:04
[2017-05-03 17:09] VITALS: BP 126/66; PULSE 68; RESP 18; TEMP 98.1
[2017-05-03] MEDS: DIVALPROEX SODIUM E.R. 250 MG TAB PO SCH (20:56)
[2017-05-03] MEDS: PRAVASTATIN SOD 20 MG TAB PO SCH (20:56)
[2017-05-04 06:26] VITALS: BP 128/82; PULSE 58; RESP 17; TEMP 98.3; O2SAT 96
[2017-05-04] MEDS: BUDESONIDE-FORMOTEROL 80/4.5 MCG INHALER INH SCH ×2 (09:17→21:23)
[2017-05-04] MEDS: METOPROLOL TARTRATE 25 MG TAB PO SCH ×2 (09:18→21:23)
[2017-05-04] MEDS: LACTULOSE SYRUP 20 GM/30 ML CUP PO SCH ×2 (09:18→21:22)
[2017-05-04] MEDS: ESCITALOPRAM OXALATE 20 MG TAB PO SCH (09:19)
[2017-05-04] MEDS: DIVALPROEX SODIUM E.R. 500 MG TAB PO SCH (09:19)
[2017-05-04] MEDS: OXcarbazepine 300 MG TAB PO SCH ×2 (09:19→21:22)
[2017-05-04] MEDS: CETIRIZINE HCL 10 MG TAB PO SCH (09:19)
[2017-05-04] MEDS: QUEtiapine FUMARATE 100 MG TAB PO SCH ×3 (09:49→21:22)
--- NOTE | 2017-05-04 15:51 | HHI.PYPN ---
Subjective Remarks Patient seen in her room with nurse Wing, chart reviewed, patient compliant medications. Patient continues calm pleasant with me though continues with her delusions psychosis related to roommates and her room placement at [facility]. For now continue treatment Review of Systems Except as stated in HPI: all other systems reviewed are Neg Objective Alert: Yes [place]: Person, Place Mood: Calm Affect: Restricted Memory Intact: Comment (fair) Hallucinations: Auditory (decreased) Delusions: Yes Delusion Type: Paranoid (decreased) Suicidal: Ideation (denies) Homicidal: Ideation (deneis any) Insight/Judgment Very poor Vitals/IOs Vital Signs Date Time Temp Pulse Resp B/P (MAP) Pulse Ox O2 Delivery O2 Flow Rate FiO2 05/04/17 06:26 98.3 58 17 128/82 (97) 96 Assessment & Plan Problem List: (1) Paranoid type schizophrenia, chronic state ICD Codes: F20.0 - Paranoid schizophrenia Status: Acute Assessment & Plan Estimated LOS: days patient continues delusional though no significant behavioral problems compliant medications Justification for Cont. Inpt. At this time patient will decompensate if not placed in an appropriate level of care Discharge Planning To be determined Kt Bruce MD May 04, 2017 15:51
[2017-05-04 18:16] VITALS: BP 125/66; PULSE 64; RESP 17; TEMP 97.5; O2SAT 98
[2017-05-04] MEDS: DIVALPROEX SODIUM E.R. 250 MG TAB PO SCH (21:22)
[2017-05-04] MEDS: PRAVASTATIN SOD 20 MG TAB PO SCH (21:23)
[2017-05-05 06:57] VITALS: BP 123/68; PULSE 63; RESP 17; TEMP 98.2; O2SAT 98
[2017-05-05] MEDS: OXcarbazepine 300 MG TAB PO SCH ×2 (08:56→20:34)
[2017-05-05] MEDS: ESCITALOPRAM OXALATE 20 MG TAB PO SCH (08:56)
[2017-05-05] MEDS: CETIRIZINE HCL 10 MG TAB PO SCH (08:56)
[2017-05-05] MEDS: DIVALPROEX SODIUM E.R. 500 MG TAB PO SCH (08:56)
[2017-05-05] MEDS: METOPROLOL TARTRATE 25 MG TAB PO SCH ×2 (08:58→20:36)
[2017-05-05] MEDS: BUDESONIDE-FORMOTEROL 80/4.5 MCG INHALER INH SCH ×2 (09:00→20:33)
[2017-05-05] MEDS: QUEtiapine FUMARATE 100 MG TAB PO SCH ×3 (09:00→20:34)
[2017-05-05] MEDS: LACTULOSE SYRUP 20 GM/30 ML CUP PO SCH ×2 (09:00→20:34)
--- NOTE | 2017-05-05 15:39 | HHI.PYPN ---
Subjective Remarks Patient seen in her room, with floor staff, chart reviewed patient compliant medication. Patient continues to focus on her roommate and her need to get a new roommate. For now continue treatment Review of Systems Except as stated in HPI: all other systems reviewed are Neg Objective Alert: Yes [place]: Person, Place Mood: Calm Affect: Restricted Memory Intact: Comment (fair) Hallucinations: Auditory (decreased) Delusions: Yes Delusion Type: Paranoid (decreased) Suicidal: Ideation (denies) Homicidal: Ideation (deneis any) Insight/Judgment Very poor Vitals/IOs Vital Signs Date Time Temp Pulse Resp B/P (MAP) Pulse Ox O2 Delivery O2 Flow Rate FiO2 05/05/17 06:57 98.2 63 17 123/68 (86) 98 Intake and Output 05/05/17 05/05/17 05/06/17 08:00 16:00 00:00 Intake Total 240 ml Balance 240 ml Assessment & Plan Problem List: (1) Paranoid type schizophrenia, chronic state ICD Codes: F20.0 - Paranoid schizophrenia Status: Acute Assessment & Plan Estimated LOS: days patient continues delusional somewhat intrusive though redirectable. Compliant medications Justification for Cont. Inpt. At this time patient would decompensate if not placed in an appropriate level of care Discharge Planning To be determined Kt Bruce MD May 05, 2017 15:39
[2017-05-05 18:34] VITALS: BP 91/53; PULSE 67; RESP 18; TEMP 97.6; O2SAT 97
[2017-05-05] MEDS: DIVALPROEX SODIUM E.R. 250 MG TAB PO SCH (20:33)
[2017-05-05] MEDS: PRAVASTATIN SOD 20 MG TAB PO SCH (20:34)
[2017-05-06 06:09] VITALS: BP 96/54; PULSE 59; RESP 16; TEMP 97; O2SAT 92
[2017-05-06] MEDS: METOPROLOL TARTRATE 25 MG TAB PO SCH ×2 (09:00→21:37)
[2017-05-06] MEDS: BUDESONIDE-FORMOTEROL 80/4.5 MCG INHALER INH SCH ×2 (09:00→21:38)
[2017-05-06] MEDS: LACTULOSE SYRUP 20 GM/30 ML CUP PO SCH ×2 (09:02→21:37)
[2017-05-06] MEDS: OXcarbazepine 300 MG TAB PO SCH ×2 (09:02→21:37)
[2017-05-06] MEDS: DIVALPROEX SODIUM E.R. 500 MG TAB PO SCH (09:03)
[2017-05-06] MEDS: CETIRIZINE HCL 10 MG TAB PO SCH (09:03)
[2017-05-06] MEDS: ESCITALOPRAM OXALATE 20 MG TAB PO SCH (09:03)
[2017-05-06] MEDS: QUEtiapine FUMARATE 100 MG TAB PO SCH ×3 (09:06→21:37)
--- NOTE | 2017-05-06 10:46 | HHI.PYPN ---
Subjective Remarks Patient seen in her room before staff, chart review, patient compliant medications. Patient continues delusional related to her bed situation a roommate situation at [facility]. We need to continue her conversations with their staff related to possibility of her returning to that facility. Otherwise patient no significant behavior problems there Review of Systems Except as stated in HPI: all other systems reviewed are Neg Objective Alert: Yes [place]: Person, Place Mood: Calm Affect: Restricted Memory Intact: Comment (fair) Hallucinations: Auditory (decreased) Delusions: Yes Delusion Type: Paranoid (decreased) Suicidal: Ideation (denies) Homicidal: Ideation (deneis any) Insight/Judgment Very poor Vitals/IOs Vital Signs Date Time Temp Pulse Resp B/P (MAP) Pulse Ox O2 Delivery O2 Flow Rate FiO2 05/06/17 06:09 97.0 59 16 96/54 (68) 92 Manual Cuff/Auscultation Intake and Output 05/06/17 05/06/17 05/06/17 07:59 15:59 23:59 Intake Total 240 ml Balance 240 ml Assessment & Plan Problem List: (1) Paranoid type schizophrenia, chronic state ICD Codes: F20.0 - Paranoid schizophrenia Status: Acute Assessment & Plan Estimated LOS: days patient continues delusional, compliant medications, though no significant behavioral problems. She also does continue to isolate with little interaction with the community Justification for Cont. Inpt. At this time patient decompensate if not placed in an appropriate level of care Discharge Planning To be determined Kt Bruce MD May 06, 2017 10:46
[2017-05-06 18:23] VITALS: BP 115/77; PULSE 69; RESP 18; TEMP 98; O2SAT 94
[2017-05-06] MEDS: PRAVASTATIN SOD 20 MG TAB PO SCH (21:37)
[2017-05-06] MEDS: DIVALPROEX SODIUM E.R. 250 MG TAB PO SCH (21:37)
[2017-05-07 06:12] VITALS: BP 101/62; PULSE 62; RESP 16; TEMP 97.1; O2SAT 96
[2017-05-07] MEDS: LACTULOSE SYRUP 20 GM/30 ML CUP PO SCH ×2 (09:13→22:01)
[2017-05-07] MEDS: METOPROLOL TARTRATE 25 MG TAB PO SCH ×2 (09:13→22:01)
[2017-05-07] MEDS: CETIRIZINE HCL 10 MG TAB PO SCH (09:13)
[2017-05-07] MEDS: ESCITALOPRAM OXALATE 20 MG TAB PO SCH (09:13)
[2017-05-07] MEDS: QUEtiapine FUMARATE 100 MG TAB PO SCH ×3 (09:13→22:01)
[2017-05-07] MEDS: DIVALPROEX SODIUM E.R. 500 MG TAB PO SCH (09:13)
[2017-05-07] MEDS: OXcarbazepine 300 MG TAB PO SCH ×2 (09:13→22:01)
[2017-05-07] MEDS: BUDESONIDE-FORMOTEROL 80/4.5 MCG INHALER INH SCH ×2 (09:14→22:01)
--- NOTE | 2017-05-07 09:17 | HHI.PYPN ---
Subjective Remarks Patient seen in her room with nurse Kvng, chart review, patient compliant medication. Patient showing no behavioral problems. Still wishes to return to [facility] though there still the obsession related to her roommates and that may need to be "nice" to her. she showing no real insight into her behaviors in this regard. We'll continue to work with staff at [facility] Review of Systems Except as stated in HPI: all other systems reviewed are Neg Objective Alert: Yes [place]: Person, Place Mood: Calm Affect: Restricted Memory Intact: Comment (fair) Hallucinations: Auditory (decreased) Delusions: Yes Delusion Type: Paranoid (decreased) Suicidal: Ideation (denies) Homicidal: Ideation (deneis any) Insight/Judgment Very poor Vitals/IOs Vital Signs Date Time Temp Pulse Resp B/P (MAP) Pulse Ox O2 Delivery O2 Flow Rate FiO2 05/07/17 06:12 97.1 62 16 101/62 (75) 96 Assessment & Plan Problem List: (1) Paranoid type schizophrenia, chronic state ICD Codes: F20.0 - Paranoid schizophrenia Status: Acute Assessment & Plan Estimated LOS: days patient continues somewhat psychotic and delusional, though no behavioral problems. We'll continue to work with staff from [facility] Justification for Cont. Inpt. At this time patient will decompensate has not placed in an appropriate level of care Discharge Planning To be determined Kt Bruce MD May 07, 2017 09:17
[2017-05-07 18:18] VITALS: BP 102/54; PULSE 78; RESP 16; TEMP 97.2; O2SAT 97
[2017-05-07] MEDS: PRAVASTATIN SOD 20 MG TAB PO SCH (22:02)
[2017-05-07] MEDS: DIVALPROEX SODIUM E.R. 250 MG TAB PO SCH (22:02)
[2017-05-08 06:15] VITALS: BP 110/60; PULSE 58; RESP 17; TEMP 97.9; O2SAT 96
[2017-05-08] MEDS: BUDESONIDE-FORMOTEROL 80/4.5 MCG INHALER INH SCH ×2 (09:00→21:16)
[2017-05-08] MEDS: QUEtiapine FUMARATE 100 MG TAB PO SCH ×3 (09:00→21:17)
[2017-05-08] MEDS: CETIRIZINE HCL 10 MG TAB PO SCH (09:53)
[2017-05-08] MEDS: OXcarbazepine 300 MG TAB PO SCH ×2 (09:53→21:17)
[2017-05-08] MEDS: DIVALPROEX SODIUM E.R. 500 MG TAB PO SCH (09:54)
[2017-05-08] MEDS: ESCITALOPRAM OXALATE 20 MG TAB PO SCH (09:54)
[2017-05-08] MEDS: METOPROLOL TARTRATE 25 MG TAB PO SCH ×2 (09:55→21:16)
[2017-05-08] MEDS: LACTULOSE SYRUP 20 GM/30 ML CUP PO SCH ×2 (09:55→21:16)
--- NOTE | 2017-05-08 16:15 | HHI.PYPN ---
Subjective Remarks Patient was seen and case discussed with nursing. Patient is pleasant and cooperative with exam. Appears less delusional compared to her visit 2 weeks ago. No longer thinks her roommate is visiting her at night. However, she remains perseverative with having a different roommate at [facility] but is okay with returning there. Compliant with her medications Objective Alert: Yes [place]: Person, Place Mood: Calm Affect: Restricted Memory Intact: Comment (fair) Hallucinations: Auditory (denies) Delusions: Yes Delusion Type: Paranoid (decreased) Suicidal: Ideation (denies) Homicidal: Ideation (deneis any) Insight/Judgment Poor Vitals/IOs Vital Signs Date Time Temp Pulse Resp B/P (MAP) Pulse Ox O2 Delivery O2 Flow Rate FiO2 05/08/17 06:15 97.9 58 17 110/60 (77) 96 Assessment & Plan Problem List: (1) Paranoid type schizophrenia, chronic state ICD Codes: F20.0 - Paranoid schizophrenia Status: Acute Assessment & Plan Continue current treatment plan Justification for Cont. Inpt. Patient will decompensate in a less restrictive setting Evans Redding DO May 08, 2017 16:15
[2017-05-08 18:00] VITALS: BP 130/71; PULSE 62; RESP 18; TEMP 97.9; O2SAT 95
[2017-05-08] MEDS: PRAVASTATIN SOD 20 MG TAB PO SCH (21:00)
[2017-05-08] MEDS: DIVALPROEX SODIUM E.R. 250 MG TAB PO SCH (21:17)
[2017-05-09 06:07] VITALS: BP 107/57; PULSE 57; RESP 15; TEMP 98.6; O2SAT 98
[2017-05-09] MEDS: QUEtiapine FUMARATE 100 MG TAB PO SCH ×3 (09:00→21:01)
[2017-05-09] MEDS: ESCITALOPRAM OXALATE 20 MG TAB PO SCH (09:41)
[2017-05-09] MEDS: OXcarbazepine 300 MG TAB PO SCH ×2 (09:41→21:00)
[2017-05-09] MEDS: DIVALPROEX SODIUM E.R. 500 MG TAB PO SCH (09:41)
[2017-05-09] MEDS: CETIRIZINE HCL 10 MG TAB PO SCH (09:41)
[2017-05-09] MEDS: BUDESONIDE-FORMOTEROL 80/4.5 MCG INHALER INH SCH ×2 (09:42→20:59)
[2017-05-09] MEDS: LACTULOSE SYRUP 20 GM/30 ML CUP PO SCH ×2 (09:42→21:00)
[2017-05-09] MEDS: METOPROLOL TARTRATE 25 MG TAB PO SCH ×3 (09:42→21:01)
--- NOTE | 2017-05-09 14:46 | HHI.PYPN ---
Subjective Remarks Patient was seen and case discussed with nursing. Patient continues to complain of sedation. Saying she is tired throughout the day. Interviewed in bed today. She is awake and alert. She is less internally preoccupied, no need delusions elicited Objective Alert: Yes [place]: Person, Place Mood: Other ("tired") Affect: Restricted Memory Intact: Comment (fair) Hallucinations: Auditory (denies) Delusions: Yes Delusion Type: Paranoid (vigilance) Suicidal: Ideation (denies) Homicidal: Ideation (deneis any) Insight/Judgment Poor Vitals/IOs Vital Signs Date Time Temp Pulse Resp B/P (MAP) Pulse Ox O2 Delivery O2 Flow Rate FiO2 05/09/17 06:07 98.6 57 15 107/57 (14) 98 Assessment & Plan Problem List: (1) Paranoid type schizophrenia, chronic state ICD Codes: F20.0 - Paranoid schizophrenia Status: Acute Assessment & Plan Continue current treatment plan Justification for Cont. Inpt. Patient would decompensate in a less restrictive setting Evans Redding DO May 09, 2017 14:45
[2017-05-09] MEDS: PRAVASTATIN SOD 20 MG TAB PO SCH (21:00)
[2017-05-09] MEDS: DIVALPROEX SODIUM E.R. 250 MG TAB PO SCH (21:01)
[2017-05-10 05:35] VITALS: BP 116/68; PULSE 61; RESP 16; TEMP 98.1; O2SAT 97
[2017-05-10] MEDS: ESCITALOPRAM OXALATE 20 MG TAB PO SCH (08:34)
[2017-05-10] MEDS: OXcarbazepine 300 MG TAB PO SCH ×2 (08:34→20:49)
[2017-05-10] MEDS: DIVALPROEX SODIUM E.R. 500 MG TAB PO SCH (08:35)
[2017-05-10] MEDS: LACTULOSE SYRUP 20 GM/30 ML CUP PO SCH ×2 (08:36→20:49)
[2017-05-10] MEDS: METOPROLOL TARTRATE 25 MG TAB PO SCH ×2 (08:36→20:49)
[2017-05-10] MEDS: CETIRIZINE HCL 10 MG TAB PO SCH (08:36)
[2017-05-10] MEDS: QUEtiapine FUMARATE 100 MG TAB PO SCH ×3 (09:00→20:50)
[2017-05-10] MEDS: BUDESONIDE-FORMOTEROL 80/4.5 MCG INHALER INH SCH ×2 (09:00→20:49)
--- NOTE | 2017-05-10 14:54 | HHI.PYPN ---
Subjective Remarks Patient seen in the day room with nurse Edilia, chart reviewed patient compliant medication. Patient calm pleasant though still unable to acknowledge any responsibility for the issues she seems to have with every roommate. She keeps deflect responsibility to others staff and residents. However she is no behavior issues here. For now continue treatment continue to work on placement Review of Systems Except as stated in HPI: all other systems reviewed are Neg Objective Alert: Yes [place]: Person, Place Mood: Other ("tired") Affect: Restricted Memory Intact: Comment (fair) Hallucinations: Auditory (denies) Delusions: Yes Delusion Type: Paranoid (vigilance) Suicidal: Ideation (denies) Homicidal: Ideation (deneis any) Insight/Judgment Very poor Vitals/IOs Vital Signs Date Time Temp Pulse Resp B/P (MAP) Pulse Ox O2 Delivery O2 Flow Rate FiO2 05/10/17 05:35 98.1 61 16 116/68 (84) 97 Assessment & Plan Problem List: (1) Paranoid type schizophrenia, chronic state ICD Codes: F20.0 - Paranoid schizophrenia Status: Acute Assessment & Plan Estimated LOS: days patient continues somewhat psychotic delusional though no behavioral problems. Placement remains quite problematic Justification for Cont. Inpt. At this time patient decompensate placed in a lower level of care Discharge Planning To be determined Kt Bruce MD May 10, 2017 14:53
[2017-05-10 18:00] VITALS: BP 116/77; PULSE 61; RESP 16; TEMP 98.1; O2SAT 96
[2017-05-10] MEDS: DIVALPROEX SODIUM E.R. 250 MG TAB PO SCH (20:49)
[2017-05-10] MEDS: PRAVASTATIN SOD 20 MG TAB PO SCH (20:50)
[2017-05-11 06:15] VITALS: BP 128/50; PULSE 56; RESP 17; TEMP 99.3; O2SAT 98
[2017-05-11] MEDS: LACTULOSE SYRUP 20 GM/30 ML CUP PO SCH ×2 (09:00→20:36)
[2017-05-11] MEDS: QUEtiapine FUMARATE 100 MG TAB PO SCH ×3 (09:00→20:35)
[2017-05-11] MEDS: BUDESONIDE-FORMOTEROL 80/4.5 MCG INHALER INH SCH ×2 (09:00→20:36)
[2017-05-11] MEDS: DIVALPROEX SODIUM E.R. 500 MG TAB PO SCH (09:07)
[2017-05-11] MEDS: ESCITALOPRAM OXALATE 20 MG TAB PO SCH (09:07)
[2017-05-11] MEDS: CETIRIZINE HCL 10 MG TAB PO SCH (09:07)
[2017-05-11] MEDS: OXcarbazepine 300 MG TAB PO SCH ×2 (09:08→20:35)
[2017-05-11] MEDS: METOPROLOL TARTRATE 25 MG TAB PO SCH ×3 (09:10→20:37)
--- NOTE | 2017-05-11 11:40 | HHI.PYPN ---
Subjective Remarks Patient seen in her room with nurse Edilia, chart review, patient compliant medications. Patient continues to want to return to [facility]. But she also perseverates on difficulty with roommates. She shows no insight into her responsibility for these issues. Patient no behavior problems for us. For now continue treatment Review of Systems Except as stated in HPI: all other systems reviewed are Neg Objective Alert: Yes [place]: Person, Place Mood: Other ("tired") Affect: Restricted Memory Intact: Comment (fair) Hallucinations: Auditory (denies) Delusions: Yes Delusion Type: Paranoid (vigilance) Suicidal: Ideation (denies) Homicidal: Ideation (deneis any) Insight/Judgment Very poor Vitals/IOs Vital Signs Date Time Temp Pulse Resp B/P (MAP) Pulse Ox O2 Delivery O2 Flow Rate FiO2 05/11/17 06:15 99.3 56 17 128/50 (76) 98 Intake and Output 05/11/17 05/11/17 05/12/17 08:00 16:00 00:00 Intake Total 240 ml Balance 240 ml Assessment & Plan Problem List: (1) Paranoid type schizophrenia, chronic state ICD Codes: F20.0 - Paranoid schizophrenia Status: Acute Assessment & Plan Estimated LOS: days patient continue psychotic/delusional, though no behavior problems, compliant medications. Placement continues to remain problematic Justification for Cont. Inpt. At this time patient will decompensate if not placed in an appropriate level of care Discharge Planning To be determined Kt Bruce MD May 11, 2017 11:40
[2017-05-11 18:38] VITALS: BP 104/56; PULSE 72; RESP 17; TEMP 98.5; O2SAT 96
[2017-05-11] MEDS: PRAVASTATIN SOD 20 MG TAB PO SCH (20:35)
[2017-05-11] MEDS: DIVALPROEX SODIUM E.R. 250 MG TAB PO SCH (20:36)
[2017-05-12 06:00] VITALS: BP 133/74; PULSE 60; RESP 18; TEMP 98.4; O2SAT 97
[2017-05-12] MEDS: BUDESONIDE-FORMOTEROL 80/4.5 MCG INHALER INH SCH ×2 (08:44→21:27)
[2017-05-12] MEDS: LACTULOSE SYRUP 20 GM/30 ML CUP PO SCH ×2 (08:45→21:00)
[2017-05-12] MEDS: ESCITALOPRAM OXALATE 20 MG TAB PO SCH (08:46)
[2017-05-12] MEDS: CETIRIZINE HCL 10 MG TAB PO SCH (08:46)
[2017-05-12] MEDS: OXcarbazepine 300 MG TAB PO SCH ×2 (08:46→21:29)
[2017-05-12] MEDS: DIVALPROEX SODIUM E.R. 500 MG TAB PO SCH (08:47)
[2017-05-12] MEDS: METOPROLOL TARTRATE 25 MG TAB PO SCH ×2 (08:47→21:00)
[2017-05-12] MEDS: QUEtiapine FUMARATE 100 MG TAB PO SCH ×3 (08:50→21:29)
--- NOTE | 2017-05-12 10:02 | HHI.PYPN ---
Subjective Remarks Patient seen in her room with family practice resident antonia, chart review, patient compliant medication. Patient continues dosing of behavioral problems, she continues to isolate. Spending fairly long periods of time in her room. She continues to want to return to her "home". We do need staff from [facility] to come and assess her about returning to their facility Review of Systems Except as stated in HPI: all other systems reviewed are Neg Objective Alert: Yes [place]: Person, Place Mood: Other ("tired") Affect: Restricted Memory Intact: Comment (fair) Hallucinations: Auditory (denies) Delusions: Yes Delusion Type: Paranoid (vigilance) Suicidal: Ideation (denies) Homicidal: Ideation (deneis any) Insight/Judgment Poor Vitals/IOs Vital Signs Date Time Temp Pulse Resp B/P (MAP) Pulse Ox O2 Delivery O2 Flow Rate FiO2 05/12/17 06:00 98.4 60 18 133/74 (93) 97 Assessment & Plan Problem List: (1) Paranoid type schizophrenia, chronic state ICD Codes: F20.0 - Paranoid schizophrenia Status: Acute Assessment & Plan Estimated LOS: days patient continues confused and delusional primarily focusing on her problems with roommates and [facility] [place]. For now continue treatment Justification for Cont. Inpt. At this time patient Decompensate if not place an appropriate level of care Discharge Planning To be determined Kt Bruce MD May 12, 2017 10:02
[2017-05-12 18:29] VITALS: BP 100/58; PULSE 75; RESP 16; TEMP 97.1; O2SAT 99
[2017-05-12] MEDS: PRAVASTATIN SOD 20 MG TAB PO SCH (21:00)
[2017-05-12] MEDS: DIVALPROEX SODIUM E.R. 250 MG TAB PO SCH (21:28)
[2017-05-13 06:07] VITALS: BP 123/74; PULSE 58; RESP 17; TEMP 96.7; O2SAT 96
[2017-05-13] MEDS: DIVALPROEX SODIUM E.R. 500 MG TAB PO SCH (08:40)
[2017-05-13] MEDS: ESCITALOPRAM OXALATE 20 MG TAB PO SCH (08:40)
[2017-05-13] MEDS: METOPROLOL TARTRATE 25 MG TAB PO SCH ×2 (08:40→21:31)
[2017-05-13] MEDS: CETIRIZINE HCL 10 MG TAB PO SCH (08:40)
[2017-05-13] MEDS: OXcarbazepine 300 MG TAB PO SCH ×2 (08:40→21:31)
[2017-05-13] MEDS: QUEtiapine FUMARATE 100 MG TAB PO SCH ×3 (08:42→21:30)
[2017-05-13] MEDS: LACTULOSE SYRUP 20 GM/30 ML CUP PO SCH ×2 (08:44→21:31)
[2017-05-13] MEDS: BUDESONIDE-FORMOTEROL 80/4.5 MCG INHALER INH SCH ×2 (08:44→21:00)
--- NOTE | 2017-05-13 11:47 | HHI.PYPN ---
Subjective Remarks Patient seen in day room of floor staff, chart review, patient compliant medication. Patient continues calm cooperative though also persistent with her focusing on roommate issues and other residents though [facility] that she feels have been disrespectful or mean to her. For now continue treatment. Continue to await word from [facility] staff Review of Systems Except as stated in HPI: all other systems reviewed are Neg Objective Alert: Yes [place]: Person, Place Mood: Other ("tired") Affect: Restricted Memory Intact: Comment (fair) Hallucinations: Auditory (denies) Delusions: Yes Delusion Type: Paranoid (vigilance) Suicidal: Ideation (denies) Homicidal: Ideation (deneis any) Insight/Judgment Poor Vitals/IOs Vital Signs Date Time Temp Pulse Resp B/P (MAP) Pulse Ox O2 Delivery O2 Flow Rate FiO2 05/13/17 06:07 96.7 58 17 123/74 (90) 96 Assessment & Plan Problem List: (1) Paranoid type schizophrenia, chronic state ICD Codes: F20.0 - Paranoid schizophrenia Status: Acute Assessment & Plan Estimated LOS: days patient continues somewhat delusional and mildly paranoid related to roommates and other residents at [facility]. However no significant behavioral problems noted compliant medications Justification for Cont. Inpt. At this time patient will decompensate if not placed in an appropriate level of care Discharge Planning To be determined Kt Bruec MD May 13, 2017 11:47
[2017-05-13 18:33] VITALS: BP 118/66; PULSE 60; RESP 17; TEMP 97.2; O2SAT 98
[2017-05-13] MEDS: PRAVASTATIN SOD 20 MG TAB PO SCH (21:00)
[2017-05-13] MEDS: DIVALPROEX SODIUM E.R. 250 MG TAB PO SCH (21:31)
[2017-05-14 05:43] VITALS: BP 113/65; PULSE 60; RESP 17; TEMP 97.6; O2SAT 95
[2017-05-14] MEDS: BUDESONIDE-FORMOTEROL 80/4.5 MCG INHALER INH SCH ×2 (09:41→21:39)
[2017-05-14] MEDS: OXcarbazepine 300 MG TAB PO SCH ×2 (09:42→21:39)
[2017-05-14] MEDS: DIVALPROEX SODIUM E.R. 500 MG TAB PO SCH (09:42)
[2017-05-14] MEDS: CETIRIZINE HCL 10 MG TAB PO SCH (09:43)
[2017-05-14] MEDS: ESCITALOPRAM OXALATE 20 MG TAB PO SCH (09:43)
[2017-05-14] MEDS: METOPROLOL TARTRATE 25 MG TAB PO SCH ×2 (09:43→21:39)
[2017-05-14] MEDS: QUEtiapine FUMARATE 100 MG TAB PO SCH ×3 (10:16→21:41)
[2017-05-14] MEDS: LACTULOSE SYRUP 20 GM/30 ML CUP PO SCH ×2 (10:16→21:39)
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
[2017-05-14] MEDS: PRAVASTATIN SOD 20 MG TAB PO SCH (21:00)
[2017-05-14] MEDS: DIVALPROEX SODIUM E.R. 250 MG TAB PO SCH (21:40)
[2017-05-15 06:40] VITALS: BP 114/74; PULSE 55; RESP 16; TEMP 97.9; O2SAT 95
[2017-05-15] MEDS: QUEtiapine FUMARATE 100 MG TAB PO SCH ×3 (09:00→22:29)
[2017-05-15] MEDS: BUDESONIDE-FORMOTEROL 80/4.5 MCG INHALER INH SCH ×2 (09:00→21:00)
[2017-05-15] MEDS: DIVALPROEX SODIUM E.R. 500 MG TAB PO SCH (09:53)
[2017-05-15] MEDS: CETIRIZINE HCL 10 MG TAB PO SCH (09:53)
[2017-05-15] MEDS: OXcarbazepine 300 MG TAB PO SCH ×2 (09:53→22:28)
[2017-05-15] MEDS: METOPROLOL TARTRATE 25 MG TAB PO SCH ×2 (09:54→22:29)
[2017-05-15] MEDS: ESCITALOPRAM OXALATE 20 MG TAB PO SCH (09:54)
[2017-05-15] MEDS: LACTULOSE SYRUP 20 GM/30 ML CUP PO SCH ×2 (09:56→22:27)
--- NOTE | 2017-05-15 13:02 | HHI.PYPN ---
Subjective Remarks Patient seen, case discussed with nurse and labs reviewed. Objective Alert: Yes [place]: Person, Place Mood: Other ("tired") Affect: Restricted Memory Intact: Comment (fair) Hallucinations: Auditory (denies) Delusions: Yes Delusion Type: Paranoid (vigilance) Suicidal: Ideation (denies) Homicidal: Ideation (deneis any) Insight/Judgment Impaired Vitals/IOs Vital Signs Date Time Temp Pulse Resp B/P (MAP) Pulse Ox O2 Delivery O2 Flow Rate FiO2 05/15/17 06:40 97.9 55 16 114/74 (87) 95 Assessment & Plan Problem List: (1) Paranoid type schizophrenia, chronic state ICD Codes: F20.0 - Paranoid schizophrenia Status: Acute Assessment & Plan Estimated LOS: days continue antipsychotic medication to improve thought content stability. Justification for Cont. Inpt. Likely to decompensate at lower level of care. Ok Santos MD May 15, 2017 13:02
[2017-05-15 18:03] VITALS: BP 122/67; PULSE 64; RESP 18; TEMP 98.1; O2SAT 95
[2017-05-15] MEDS: PRAVASTATIN SOD 20 MG TAB PO SCH (21:00)
[2017-05-15] MEDS: DIVALPROEX SODIUM E.R. 250 MG TAB PO SCH (21:00)
[2017-05-16 07:11] VITALS: BP 135/81; PULSE 65; RESP 16; TEMP 97.5; O2SAT 97
[2017-05-16] MEDS: LACTULOSE SYRUP 20 GM/30 ML CUP PO SCH ×2 (09:00→21:00)
[2017-05-16] MEDS: QUEtiapine FUMARATE 100 MG TAB PO SCH ×3 (09:00→22:02)
[2017-05-16] MEDS: BUDESONIDE-FORMOTEROL 80/4.5 MCG INHALER INH SCH ×2 (09:00→21:00)
[2017-05-16] MEDS: METOPROLOL TARTRATE 25 MG TAB PO SCH ×2 (09:05→22:02)
[2017-05-16] MEDS: CETIRIZINE HCL 10 MG TAB PO SCH (09:05)
[2017-05-16] MEDS: OXcarbazepine 300 MG TAB PO SCH ×2 (09:05→22:02)
[2017-05-16] MEDS: ESCITALOPRAM OXALATE 20 MG TAB PO SCH (09:05)
[2017-05-16] MEDS: DIVALPROEX SODIUM E.R. 500 MG TAB PO SCH (09:05)
[2017-05-16 17:30] VITALS: BP 151/88; PULSE 75; RESP 18; TEMP 98; O2SAT 95
[2017-05-16] MEDS: PRAVASTATIN SOD 20 MG TAB PO SCH (21:00)
[2017-05-16] MEDS: DIVALPROEX SODIUM E.R. 250 MG TAB PO SCH (22:07)
[2017-05-17 06:22] VITALS: BP 140/84; PULSE 56; RESP 17; TEMP 97.9; O2SAT 95
[2017-05-17] MEDS: OXcarbazepine 300 MG TAB PO SCH ×2 (08:13→21:43)
[2017-05-17] MEDS: BUDESONIDE-FORMOTEROL 80/4.5 MCG INHALER INH SCH ×2 (08:13→21:43)
[2017-05-17] MEDS: QUEtiapine FUMARATE 100 MG TAB PO SCH ×3 (08:14→21:44)
[2017-05-17] MEDS: LACTULOSE SYRUP 20 GM/30 ML CUP PO SCH ×2 (08:14→21:45)
[2017-05-17] MEDS: METOPROLOL TARTRATE 25 MG TAB PO SCH ×2 (08:14→21:44)
[2017-05-17] MEDS: ESCITALOPRAM OXALATE 20 MG TAB PO SCH (08:14)
[2017-05-17] MEDS: CETIRIZINE HCL 10 MG TAB PO SCH (08:14)
[2017-05-17] MEDS: DIVALPROEX SODIUM E.R. 500 MG TAB PO SCH (08:14)
--- NOTE | 2017-05-17 10:05 | HHI.PYPN ---
Subjective Remarks Patient seen and examined with nursing in coverage. Chart reviewed. Case discussed with nursing staff. On my examination today, the patient says that her mood is good. She denies any suicidal or homicidal ideation. Denies any audiovisual hallucinations. Complains of some diarrhea associated with lactulose but otherwise has no physical complaints. No other side effects from medications. Review of Systems ROS Limitations: Poor Historian Except as stated in HPI: all other systems reviewed are Neg Objective Alert: Yes [place]: Person, Place Mood: Other (good) Affect: Blunted Memory Intact: Comment (fair) Hallucinations: Other (No AVH) Delusions: No Delusion Type: Other (no delusions) Suicidal: Ideation (no SI) Homicidal: Ideation (no HI) Insight/Judgment Poor Remarks No motor abnormalities noted. Labs Labs reviewed. No recent laboratories, but I do note that the patient was somewhat hyponatremic when last checked. Vitals/IOs Vital Signs Date Time Temp Pulse Resp B/P (MAP) Pulse Ox O2 Delivery O2 Flow Rate FiO2 05/17/17 06:22 97.9 56 17 140/84 (102) 95 Intake and Output 05/17/17 05/17/17 05/18/17 08:00 16:00 00:00 Intake Total 240 ml Balance 240 ml Assessment & Plan Problem List: (1) Paranoid type schizophrenia, chronic state ICD Codes: F20.0 - Paranoid schizophrenia Status: Acute Assessment & Plan Continue current psychotropics as ordered. Check a BMP. Continue to monitor on the inpatient unit. Continue other medications and care as ordered. Justification for Cont. Inpt. Risk for decompensation Discharge Planning Per Cameron Belcher MD May 17, 2017 10:05
[2017-05-17 15:04] LABS: BICARBONATE 27.3 MEQ/L (21.0-32.0)
[2017-05-17 15:11] LABS: POTASSIUM 4.6 MEQ/L (3.5-5.1)
[2017-05-17 18:14] VITALS: BP 124/61; PULSE 67; RESP 18; TEMP 97.9; O2SAT 98
[2017-05-17] MEDS: PRAVASTATIN SOD 20 MG TAB PO SCH (21:00)
[2017-05-17] MEDS: DIVALPROEX SODIUM E.R. 250 MG TAB PO SCH (21:43)
[2017-05-18 05:56] VITALS: BP 120/77; PULSE 55; RESP 16; TEMP 98; O2SAT 96
[2017-05-18] MEDS: QUEtiapine FUMARATE 100 MG TAB PO SCH ×3 (09:00→21:00)
--- NOTE | 2017-05-18 10:14 | HHI.PYPN ---
Subjective Remarks Patient seen in her room with nurse Brinda, and Counselor Mackenzie, chart reviewed, patient compliant medication. Patient no behavioral problems, she is calm pleasant with us at times continues to isolate. However when questioned about roommates heard delusions and irritability do surface. For now continue treatment. Need to have [facility] staff, and assess patient also Review of Systems Except as stated in HPI: all other systems reviewed are Neg Objective Alert: Yes [place]: Person, Place Mood: Other (good) Affect: Blunted Memory Intact: Comment (fair) Hallucinations: Other (No AVH) Delusions: No Delusion Type: Other (no delusions) Suicidal: Ideation (no SI) Homicidal: Ideation (no HI) Insight/Judgment Poor Labs Test 05/17/17 13:27 Blood Urea Nitrogen 13 MG/DL Creatinine 0.56 MG/DL Random Glucose 83 MG/DL Calcium Level 8.4 MG/DL Sodium Level 126 MEQ/L Potassium Level 4.6 MEQ/L Chloride Level 91 MEQ/L Carbon Dioxide Level 27.3 MEQ/L Anion Gap 8 MEQ/L Estimat Glomerular Filtration Rate 113 ML/MIN Vitals/IOs Vital Signs Date Time Temp Pulse Resp B/P (MAP) Pulse Ox O2 Delivery O2 Flow Rate FiO2 05/18/17 05:56 98.0 55 16 120/77 (91) 96 Assessment & Plan Problem List: (1) Paranoid type schizophrenia, chronic state ICD Codes: F20.0 - Paranoid schizophrenia Status: Acute Assessment & Plan Estimated LOS: days patient continue somewhat delusional psychotic, though no behavioral problems. Compliant medication. Justification for Cont. Inpt. At this time patient will decompensate if not placed in an appropriate level of care Discharge Planning To be determined Kt Bruce MD May 18, 2017 10:14
--- NOTE | 2017-05-18 10:16 | HHI.PYPN ---
Subjective Remarks This is the progress note for May 16, 2017. Patient remains calm with blunted affect. She is complaining of diarrhea. She appears to be guarded and somewhat paranoid. Case discussed with mental health tech who watches over her and record reviewed. Review of Systems Except as stated in HPI: all other systems reviewed are Neg Gastrointestinal: COMPLAINS OF: Diarrhea Objective Alert: Yes [place]: Person, Place Mood: Other (good) Affect: Blunted Memory Intact: Comment (fair) Hallucinations: Other (No AVH) Delusions: No Delusion Type: Other (no delusions) Suicidal: Ideation (no SI) Homicidal: Ideation (no HI) Insight/Judgment Impaired Labs Test 05/17/17 13:27 Blood Urea Nitrogen 13 MG/DL Creatinine 0.56 MG/DL Random Glucose 83 MG/DL Calcium Level 8.4 MG/DL Sodium Level 126 MEQ/L Potassium Level 4.6 MEQ/L Chloride Level 91 MEQ/L Carbon Dioxide Level 27.3 MEQ/L Anion Gap 8 MEQ/L Estimat Glomerular Filtration Rate 113 ML/MIN Vitals/IOs Vital Signs Date Time Temp Pulse Resp B/P (MAP) Pulse Ox O2 Delivery O2 Flow Rate FiO2 05/18/17 05:56 98.0 55 16 120/77 (91) 96 Assessment & Plan Problem List: (1) Paranoid type schizophrenia, chronic state ICD Codes: F20.0 - Paranoid schizophrenia Status: Acute Assessment & Plan Estimated LOS: days continue to observe and evaluate efficacy of current medication regimen. Justification for Cont. Inpt. Medication requires more time to stabilize patient. Ok Santos MD May 18, 2017 10:16
[2017-05-18] MEDS: LACTULOSE SYRUP 20 GM/30 ML CUP PO SCH ×2 (10:31→21:00)
[2017-05-18] MEDS: CETIRIZINE HCL 10 MG TAB PO SCH (10:31)
[2017-05-18] MEDS: BUDESONIDE-FORMOTEROL 80/4.5 MCG INHALER INH SCH ×2 (10:31→21:00)
[2017-05-18] MEDS: ESCITALOPRAM OXALATE 20 MG TAB PO SCH (10:32)
[2017-05-18] MEDS: METOPROLOL TARTRATE 25 MG TAB PO SCH ×2 (10:32→21:00)
[2017-05-18] MEDS: OXcarbazepine 300 MG TAB PO SCH ×2 (10:32→21:00)
[2017-05-18] MEDS: DIVALPROEX SODIUM E.R. 500 MG TAB PO SCH (10:32)
[2017-05-18 18:00] VITALS: BP 97/69; PULSE 55; RESP 16; TEMP 97.9; O2SAT 96
[2017-05-18] MEDS: DIVALPROEX SODIUM E.R. 250 MG TAB PO SCH (21:00)
[2017-05-18] MEDS: PRAVASTATIN SOD 20 MG TAB PO SCH (21:00)
[2017-05-19 05:10] VITALS: BP 122/77; PULSE 65; RESP 20; TEMP 96.2; O2SAT 96
[2017-05-19] MEDS: CETIRIZINE HCL 10 MG TAB PO SCH (09:00)
[2017-05-19] MEDS: METOPROLOL TARTRATE 25 MG TAB PO SCH (09:00)
[2017-05-19] MEDS: ESCITALOPRAM OXALATE 20 MG TAB PO SCH (09:00)
[2017-05-19] MEDS: LACTULOSE SYRUP 20 GM/30 ML CUP PO SCH (09:00)
[2017-05-19] MEDS: DIVALPROEX SODIUM E.R. 500 MG TAB PO SCH (09:00)
[2017-05-19] MEDS: BUDESONIDE-FORMOTEROL 80/4.5 MCG INHALER INH SCH (09:00)
[2017-05-19] MEDS: QUEtiapine FUMARATE 100 MG TAB PO SCH (09:00)
[2017-05-19] MEDS: OXcarbazepine 300 MG TAB PO SCH (09:00)
[2017-05-19] MEDS ORDERED: Lactulose PO (09:12)
[2017-05-19] MEDS ORDERED: CETI10 PO (09:12)
[2017-05-19] MEDS ORDERED: ESCI20TA PO (09:12)
[2017-05-19] MEDS ORDERED: SYMB80AE INH (09:12)
[2017-05-19] MEDS ORDERED: DIVA250ER PO (09:12)
[2017-05-19] MEDS ORDERED: DEPA500T3 PO (09:12)
[2017-05-19] MEDS ORDERED: OXCA300T PO (09:12)
[2017-05-19] MEDS ORDERED: METO25TA3 PO (09:12)
[2017-05-19] MEDS ORDERED: PRAV20TA PO (09:12)
[2017-05-19] MEDS ORDERED: SERO100T PO (09:12)
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
== END 2017-05-19 10:35 | DRG 885 ==
LOC: NEDAMB 13:30 → NEDA 04-13 15:35 → H260 04-13 17:30
PROVIDERS: ADMIT Psychiatry & Neurology Psychiatry; ATTEND Psychiatry & Neurology Psychiatry
DX: F20.0 Paranoid schizophrenia (principal); I10 Essential (primary) hypertension; J44.9 Chronic obstructive pulmonary disease, unspecified; Z87.891 Personal history of nicotine dependence
CPT/HCPCS: 80048; 80061; 80164; 81001; 83036; 99285

== ENCOUNTER 2017-05-25 12:58 | Inpatient (IN) | payer MEDICARE, OTHER ==
[~2017-05-25] VITALS: Ht 172.7 cm; Wt 65.5 kg
[2017-05-25] MEDS: LORazepam 2 MG/ML VIAL IM PRN (09:41)
[~2017-05-25 12:58] MED LIST changes: +DIVA250ER PO; -Lactulose Liq PO; +Lactulose PO; -OLAN10TA PO; -OLAN5TAB PO; +SERO100T PO
[2017-05-25 13:04] VITALS: BP 108/70; PULSE 99; RESP 18; TEMP 98.1; O2SAT 97
[2017-05-25 13:48] LABS: AUTOMATED NEUTROPHIL # 2.5 TH/MM3 (1.8-7.7); BASOPHIL % 0.3 % (0.0-2.0); EOSINOPHIL % 0.5 % (0.0-4.0); HEMO FLAGS DIFF FINAL; LYMPH % 30.4 % (9.0-44.0); LYMPHOCYTE # 1.3 TH/MM3 (1.0-4.8); MEAN CELL VOLUME 96.6 FL (80.0-100.0); MEAN CORPUSCULAR HEMOGLOBIN 33.2 PG (27.0-34.0); MEAN CORPUSCULAR HGB CONC 34.4 % (32.0-36.0); NEUT % 56.8 % (16.0-70.0); PLATELET COUNT 154 TH/MM3 (150-450); RED CELL DISTRIBUTION WIDTH 13.2 % (11.6-17.2); WHITE BLOOD COUNT 4.4 TH/MM3 (4.0-11.0)
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
[2017-05-25 14:14] LABS: ALCOHOL LESS THAN 3 MG/DL (0-5); ALT (GPT) 16 U/L (10-53); ANION GAP 8 MEQ/L (5-15); AST (GOT) 13 U/L (15-37); BICARBONATE 28.1 MEQ/L (21.0-32.0); CHLORIDE 95 MEQ/L (98-107); GLOMERULAR FILTRATION RATE 101 ML/MIN (>89); POTASSIUM 3.7 MEQ/L (3.5-5.1); SODIUM (NA) 131 MEQ/L (136-145)
[2017-05-25 14:18] LABS: ALKALINE PHOSPHATASE 68 U/L (45-117); BLOOD UREA NITROGEN 10 MG/DL (7-18); TOTAL BILIRUBIN ADULT 0.1 MG/DL (0.2-1.0)
[2017-05-25 17:57] VITALS: BP 113/68; PULSE 76; RESP 18; O2SAT 100
[2017-05-25] MEDS ORDERED: SERO200T PO (19:20)
[2017-05-25] MEDS ORDERED: SERO100T PO (19:20)
[2017-05-25] MEDS ORDERED: ALUMINUM/MAGNESIUM/SIMETH 30 ML CUP PO PRN (20:15)
[2017-05-25] MEDS ORDERED: diphenhydrAMINE HCL 50 MG/ML VIAL IM PRN (20:15)
[2017-05-25] MEDS ORDERED: MAGNESIUM HYDROXIDE SUSP 30 ML CUP PO PRN (20:15)
[2017-05-25] MEDS ORDERED: diphenhydrAMINE HCL 50 MG CAP PO PRN (20:15)
[2017-05-25] MEDS ORDERED: ACETAMINOPHEN 325 MG TAB PO PRN (20:15)
[2017-05-25] MEDS ORDERED: PILL SPLITTER OTHER PRN (20:30)
[2017-05-25] MEDS: OXcarbazepine 300 MG TAB PO SCH (21:00)
[2017-05-25] MEDS: BUDESONIDE-FORMOTEROL 80/4.5 MCG INHALER INH SCH (21:00)
[2017-05-25] MEDS: DIVALPROEX SODIUM E.R. 500 MG TAB PO SCH (21:00)
[2017-05-25] MEDS: DIVALPROEX SODIUM E.R. 250 MG TAB PO SCH (21:00)
[2017-05-25] MEDS: TRIAMCINOLONE ACETONIDE 0.1% OINT 15 GM TUBE TOPICAL SCH (21:00)
[2017-05-25] MEDS: QUEtiapine FUMARATE 200 MG TAB PO SCH (21:00)
[2017-05-25] MEDS: LACTULOSE SYRUP 20 GM/30 ML CUP PO SCH (21:00)
[2017-05-25] MEDS: METOPROLOL TARTRATE 25 MG TAB PO SCH (21:00)
[2017-05-25] MEDS: PRAVASTATIN SOD 20 MG TAB PO SCH (21:00)
[2017-05-26] MEDS: METOPROLOL TARTRATE 25 MG TAB PO SCH ×2 (08:45→21:23)
[2017-05-26] MEDS: OXcarbazepine 300 MG TAB PO SCH ×2 (08:46→21:24)
[2017-05-26] MEDS: QUEtiapine FUMARATE 100 MG TAB PO SCH (08:46)
[2017-05-26] MEDS: LACTULOSE SYRUP 20 GM/30 ML CUP PO SCH ×2 (08:46→21:22)
[2017-05-26] MEDS: CETIRIZINE HCL 10 MG TAB PO SCH (08:46)
[2017-05-26] MEDS: DIVALPROEX SODIUM E.R. 500 MG TAB PO SCH ×2 (08:46→21:23)
[2017-05-26] MEDS: TRIAMCINOLONE ACETONIDE 0.1% OINT 15 GM TUBE TOPICAL SCH ×2 (09:00→21:00)
[2017-05-26] MEDS: BUDESONIDE-FORMOTEROL 80/4.5 MCG INHALER INH SCH ×2 (09:00→21:00)
[2017-05-26 10:04] LABS: BICARBONATE 29.1 MEQ/L (21.0-32.0); BLOOD UREA NITROGEN 9 MG/DL (7-18); GLOMERULAR FILTRATION RATE 94 ML/MIN (>89)
[2017-05-26 10:13] LABS: ANION GAP 8 MEQ/L (5-15); CHLORIDE 94 MEQ/L (98-107); HDL CHOLESTEROL 88.6 MG/DL (40.0-60.0); LDL CHOLESTEROL 44 MG/DL (0-99); POTASSIUM 4.4 MEQ/L (3.5-5.1); SODIUM (NA) 131 MEQ/L (136-145)
--- NOTE | 2017-05-26 12:47 | HHI.HP ---
Provisional Diagnosis Admission Date May 25, 2017 at 20:03 [place] I. Chronic paranoid schizophrenia Certification of Person's Competence To Provide Express and Informed Consent I have personally examined Libra Saucedo , a person being served at [facility] on, May 26, 2017 12:46. Express and informed consent means consent voluntarily given in writing, by a competent person, after sufficient explanation and disclosure of the subject matter involved to enable the person to make a knowing and willful decision without any element of force, fraud, deceit, duress, or other form of constraint or coercion. This person is 18 years of age or older, is not now known to be incompetent to consent to treatment with a guardian advocate, and does not have a health care surrogate or proxy currently making medical treatment decisions. I have found this person to be one of the following: [] Competent to provide express and informed consent, as defined above, for voluntary admission to this facility and is competent to provide express and informed consent for treatment. He/she has the consistent capacity to make well reasoned, willful, and knowing decisions concerning his or her medical or mental health treatment. The person fully and consistently understands the purpose of the admission for examination/placement and is fully capable of personally exercising all rights assured under [place] [] Incompetent to provide express and informed consent to voluntary admission, and this is incompetent to provide express and informed consent to treatment. The person must be transferred to involuntary status and a petition for a guardian advocate filed with the Circuit Court. [X] Refusing to provide express and informed consent to voluntary admission but is competent to provide express and informed consent for treatment. The person must be discharged or transferred to involuntary status. Form shall be completed within 24 hours of a person's arrival at the receiving facility and filed in the clinical record of each person: 1. Admitted on a voluntary basis 2. Permitted to provide express and informed consent to his/her own treatment 3. Allowed to transfer from involuntary to voluntary status 4. Prior to permitting a person to consent to his or her own treatment after having been previously found incompetent to consent to treatment. History of Present Illness Capacity: Has Capacity HPI The patient is a 51-year-old woman, single, unemployed, domicile in [facility], well known by this service, history of paranoid schizophrenia , schizoaffective disorder, multiple psychiatric hospitalizations, last hospitalization was in April 2017, she was under the care of Dr. Bruce, documentation was reviewed, no previous suicidal attempts, outpatient care by visiting psychiatrist, she is on Depakote 500 mg a.m. and 750 mg p.m., Seroquel 100 mg, Trileptal 300 mg, trazodone 50 g, he has medical history hypertension and COPD, who was brought to the hospital under [place] act because she was found wandering and confused in the streets. On psychiatric evaluation today the patient is found in the recreational area sitting down, she is calm, cooperative , a little bit guarded. Patient says that she doesnt understand what she is here, for the same reason of always. She reports good mood, she denies anhedonia, denies hopelessness, denies helplessness, she denies suicidal and homicidal ideation, she denies visual and auditory hallucinations. She does report paranoia some FBI agents are always looking at meand some tangential speech and loosening of associations. But she is easily redirectable. No agitation, no aggressive behavior observed or reported. She is fully oriented 3, she knows what is depressing of denies states, refuses to cooperate with deeper neurocognitive tests. He denies the use of alcohol and illicit drugs, reports smoking cigarettes. Review of Systems Constitutional: DENIES: Diaphoretic episodes, Fatigue, Fever, Weight gain, Weight loss, Chills, Dizziness, Change in appetite, Night Sweats Endocrine: DENIES: Abnorml menstrual pattern, Heat/cold intolerance, Polydipsia , Polyuria, Polyphagia Eyes: DENIES: Blurred vision, Diplopia, Eye inflammation, Eye pain, Vision loss , Photosensitivity, Double Vision Ears, nose, mouth, throat: DENIES: Tinnitus, Hearing loss, Vertigo, Nasal discharge, Oral lesions, Throat pain, Hoarseness, Ear Pain, Running Nose, Epistaxis, Sinus Pain, Toothache, Odynophagia Respiratory: DENIES: Apneas, Cough, Snoring, Wheezing, Hemoptysis, Sputum production, Shortness of breath Cardiovascular: DENIES: Chest pain, Palpitations, Syncope, Dyspnea on Exertion , PND, Lower Extremity Edema, Orthopnea, Claudication Gastrointestinal: DENIES: Abdominal pain, Black stools, Bloody stools, Constipation, Diarrhea, Nausea, Vomiting, Difficulty Swallowing, Anorexia Genitourinary: DENIES: Abnormal vaginal bleeding, Dysmenorrhea, Dyspareunia, Sexual dysfunction, Urinary frequency, Urinary incontinence, Urgency, Hematuria , Dysuria, Nocturia, Vaginal discharge Musculoskeletal: DENIES: Joint pain, Muscle aches, Stiffness, Joint Swelling, Back pain, Neck pain Hematologic/lymphatic: DENIES: Bruising, Lymphadenopathy Immunologic/allergic: DENIES: Eczema, Urticaria Neurologic: DENIES: Abnormal gait, Headache, Localized weakness, Paresthesias, Seizures, Speech Problems, Tremor, Poor Balance Psychiatric: COMPLAINS OF: Delusions, DENIES: Anxiety, Confusion, Mood changes , Depression, Hallucinations, Agitation, Suicidal Ideation, Homicidal Ideation Substance Abuse History Drugs/Alcohol past 12 months Patient is more nicotine, about one pack per day Past Family Social History Coded Allergies: haloperidol (Unverified Allergy, Unknown, 05/25/17) Per MAR sent by [facility]. Active Scripts Pravastatin (Pravachol) 20 Mg Tab, 20 MG PO HS for health, #30 TAB 0 Refills Prov:Kt Bruce MD 05/19/17 [Lactulose Liq] 30 ML SYRP No Conflict Check, 20 ML PO BID for health, #1 BOTTLE 0 Refills Prov:Kt Bruce MD 05/19/17 Divalproex ER (Depakote ER) 250 Mg Mila, 250 MG PO HS for health, #30 TAB 0 Refills Prov:Kt Bruce MD 05/19/17 Cetirizine (Cetirizine) 10 Mg Tab, 10 MG PO DAILY for health, #10 TAB 0 Refills Prov:Kt Bruce MD 05/19/17 Metoprolol Tartrate (Metoprolol Tartrate) 25 Mg Tab, 12.5 MG PO 1/2 bid for health, #30 TAB 0 Refills Prov:Kt Bruce MD 03/08/17 Budesonide-Formoterol Inh (Symbicort Inh) 80-4.5 Mcg/Act Aero, 1 PUFF INH Q12HR for health, #1 INHALER 0 Refills Prov:Kt Bruce MD 03/08/17 Oxcarbazepine (Oxcarbazepine) 300 Mg Tab, 300 MG PO BID for health, #60 TAB 0 Refills Prov:Kt Bruce MD 01/20/17 Escitalopram (Escitalopram) 20 Mg Tab, 20 MG PO DAILY for health, #30 TAB 0 Refills Prov:Kt Bruce MD 01/20/17 Divalproex ER (Depakote ER) 500 Mg Mila, 500 MG PO BID for health, #60 TAB 0 Refills Prov:Kt Bruce MD 01/20/17 Reported Medications Quetiapine (Seroquel) 200 Mg Tab, 200 MG PO HS, #30 TAB 0 Refills 05/25/17 Quetiapine (Seroquel) 100 Mg Tab, 100 MG PO DAILY, #30 TAB 0 Refills 05/25/17 Triamcinolone Acetonide-[place] (Dermazone 0.1 %) 1 Mis Mis, 1 APPLIC TOPICAL BID 02/25/17 Alendronate (Alendronate) 70 Mg Tab, 70 MG PO Q7D ON FRIDAYS for Osteporosis Treatment, #4 TAB 0 Refills 01/13/17 Discontinued Reported Medications Pravastatin (Pravastatin) 20 Mg Tab, 20 MG PO HS for Cholesterol Management, TAB 0 Refills 04/12/17 Lactulose Liq (Lactulose Liq) 10 Gm/15 Ml Soln, 20 ML PO BID, ML 0 Refills 04/12/17 Discontinued Scripts Quetiapine (Seroquel) 100 Mg Tab, 100 MG PO DIRECTED for health, #120 TAB 0 Refills 1 in am, 1 4pm, 2 hs Prov:Kt Bruce MD 05/19/17 Oxcarbazepine (Oxcarbazepine) 300 Mg Tab, 300 MG PO BID for health, #60 TAB 0 Refills Prov:Kt Bruce MD 05/19/17 Metoprolol Tartrate (Metoprolol Tartrate) 25 Mg Tab, 12.5 MG PO BID for health, #60 TAB 0 Refills Prov:Kt Bruce MD 05/19/17 Escitalopram (Escitalopram) 20 Mg Tab, 20 MG PO DAILY for health, #30 TAB 0 Refills Prov:Kt Bruce MD 05/19/17 Divalproex ER (Depakote ER) 500 Mg Mila, 500 MG PO twice a day for health, #60 TAB 0 Refills Prov:Kt Bruce MD 05/19/17 Budesonide-Formoterol Inh (Symbicort Inh) 80-4.5 Mcg/Act Aero, 1 PUFF INH Q12HR for health, #60 INHALER 0 Refills Prov:Kt Bruce MD 05/19/17 Quetiapine (Quetiapine) 100 Mg Tab, 100 MG PO HS for Agitation, #30 TAB Prov:Gianna Urban 01/15/17 Cetirizine (Cetirizine) 10 Mg Tab, 10 MG PO DAILY for health, #30 TAB 0 Refills Prov:Kt Bruce MD 03/08/17 Current Medications Medications (Trade) Dose Ordered Sig/Sae Route Start Time Stop Time Status Last Admin (Ativan) 1 mg Q6H PRN PO 05/25/17 20:15 (Ativan Inj) 1 mg Q6H PRN IM 05/25/17 20:15 05/25/17 09:41 (Benadryl) 50 mg Q6H PRN PO 05/25/17 20:15 (Benadryl Inj) 50 mg Q6H PRN IM 05/25/17 20:15 (Desyrel) 50 mg HS PRN PO 05/25/17 20:15 (Tylenol) 650 mg Q4H PRN PO 05/25/17 20:15 (Milk Of Magnesia Liq) 30 ml DAILY PRN PO 05/25/17 20:15 (Mag-Al Plus Susp Liq) 30 ml Q6H PRN PO 05/25/17 20:15 (Aristocort 0.1% Oint) 1 applic BID TOPICAL 05/25/17 21:00 05/26/17 09:00 (Symbicort 80-4.5 Mcg Inh) 1 puff Q12HR INH 05/25/17 21:00 05/26/17 09:00 (Lopressor) 12.5 mg BID PO 05/25/17 21:00 05/26/17 08:45 (Pill Splitter) 1 ea UNSCH PRN OTHER 05/25/17 20:30 (ZyrTEC) 10 mg DAILY PO 05/26/17 09:00 05/26/17 08:46 (Depakote Er) 250 mg HS PO 05/25/17 21:00 05/25/17 21:00 (Depakote Er) 500 mg BID PO 05/25/17 21:00 05/26/17 08:46 (Trileptal) 300 mg BID PO 05/25/17 21:00 05/26/17 08:46 (Lactulose Liq) 20 ml BID PO 05/25/17 21:00 05/26/17 08:46 (Pravachol) 20 mg HS PO 05/25/17 21:00 (SEROquel) 100 mg DAILY PO 05/26/17 09:00 05/26/17 08:46 (SEROquel) 200 mg HS PO 05/25/17 21:00 05/25/17 21:00 Family History Family psychiatric history Social History Patient lives in [facility], she is unemployed, single, supported by SSI Physical Exam No EPS, no tremors, no psychomotor agitation or retardation, no gait disturbances, Vital Signs Vital Signs Date Time Temp Pulse Resp B/P (MAP) Pulse Ox O2 Delivery O2 Flow Rate FiO2 05/25/17 20:06 05/25/17 17:57 76 18 100 Room Air 05/25/17 13:04 98.1 Lab Results Test 05/25/17 13:25 05/26/17 03:15 05/26/17 09:23 White Blood Count 4.4 TH/MM3 Red Blood Count 3.20 MIL/MM3 Hemoglobin 10.6 GM/DL Hematocrit 31.0 % Mean Corpuscular Volume 96.6 FL Mean Corpuscular Hemoglobin 33.2 PG Mean Corpuscular Hemoglobin Concent 34.4 % Red Cell Distribution Width 13.2 % Platelet Count 154 TH/MM3 Mean Platelet Volume 9.6 FL Neutrophils (%) (Auto) 56.8 % Lymphocytes (%) (Auto) 30.4 % Monocytes (%) (Auto) 12.0 % Eosinophils (%) (Auto) 0.5 % Basophils (%) (Auto) 0.3 % Neutrophils # (Auto) 2.5 TH/MM3 Lymphocytes # (Auto) 1.3 TH/MM3 Monocytes # (Auto) 0.5 TH/MM3 Eosinophils # (Auto) 0.0 TH/MM3 Basophils # (Auto) 0.0 TH/MM3 CBC Comment DIFF FINAL Differential Comment Blood Urea Nitrogen 10 MG/DL 9 MG/DL Creatinine 0.62 MG/DL 0.66 MG/DL Random Glucose 60 MG/DL 64 MG/DL Total Protein 6.6 GM/DL Albumin 3.6 GM/DL Calcium Level 8.2 MG/DL 8.6 MG/DL Alkaline Phosphatase 68 U/L Aspartate Amino Transf (AST/SGOT) 13 U/L Alanine Aminotransferase (ALT/SGPT) 16 U/L Total Bilirubin 0.1 MG/DL Sodium Level 131 MEQ/L 131 MEQ/L Potassium Level 3.7 MEQ/L 4.4 MEQ/L Chloride Level 95 MEQ/L 94 MEQ/L Carbon Dioxide Level 28.1 MEQ/L 29.1 MEQ/L Anion Gap 8 MEQ/L 8 MEQ/L Estimat Glomerular Filtration Rate 101 ML/MIN 94 ML/MIN Valproic Acid (Depakene) Level 106 MCG/ML 85 MCG/ML Ethyl Alcohol Level LESS THAN 3 MG/DL Urine Opiates Screen NEG Urine Barbiturates Screen NEG Urine Amphetamines Screen NEG Urine Benzodiazepines Screen NEG Urine Cocaine Screen NEG Urine Cannabinoids Screen NEG Ammonia 52 MCMOL/L Triglycerides Level 71 MG/DL Cholesterol Level 147 MG/DL LDL Cholesterol 44 MG/DL HDL Cholesterol 88.6 MG/DL Cholesterol/HDL Ratio 1.65 RATIO Mental Status Examination Appearance woman with poor dental and general hygiene, disheveled, calm and cooperative Speech: Rapid, Stuttering Orientation: x3 Memory: Unremarkable Thought Process: Goal Directed, Loose Association Thought Content: Paranoid Language Fluent and spontaneous Fund of Knowledge Adequate for level of education Suicidal Ideation: No Previous Suicide Attempts: No Homicidal Ideation: No Previous Homicide Attempts: No Insight: Fair Judgment: Impulsive Affect: Irritable Mood: Irritable Motor Activity: Normal gait Assessment & Plan Problem List: (1) schizophrenia Status: Acute Assessment & Plan: On psychiatric evaluation today the patient presents with chronic symptoms of paranoia, is organized and tangential this patient, loosening of associations that, as per review of documentation last presentations, are part of baseline. Patient denies suicidal and homicidal ideation, she denies depressive symptoms, she denies anxiety, she denies visual and auditory hallucinations. No agitation or aggressive behavior reported or observed. No EPS or other side effects of current psychotropics reported. Laboratory reviewed. Patient is oriented 3, without attention deficit or fluctuation of consciousness. Due to past history of psychotic decompensation and potential underlying medical, side effects of medication causes of described confusion, as per [place] act, will leave patient for observation of mood and behavior. Will restart current psychotropic regimen. Will order EKG for QTc interval baseline, will order medical consult. Will order psychiatric consult for second opinion. poultry dressing worker intervention for safety patient planning. Assessment & Plan Estimated LOS: days Vinayak Faye MD May 26, 2017 12:47
[2017-05-26 17:03] LABS: HEMOGLOBIN A1a 1.1 %; HEMOGLOBIN A1b 1.7 %; HEMOGLOBIN Ao 85.3 %; HEMOGLOBIN LA1C 1.8 %; HEMOGLOBIN P3 3.9 %
[2017-05-26] MEDS: QUEtiapine FUMARATE 200 MG TAB PO SCH (21:00)
[2017-05-26] MEDS: PRAVASTATIN SOD 20 MG TAB PO SCH (21:00)
[2017-05-26] MEDS: DIVALPROEX SODIUM E.R. 250 MG TAB PO SCH (21:24)
[2017-05-27 05:59] VITALS: BP 125/75; PULSE 68; RESP 18; TEMP 96.6
[2017-05-27] MEDS: BUDESONIDE-FORMOTEROL 80/4.5 MCG INHALER INH SCH ×2 (09:00→21:00)
[2017-05-27] MEDS: TRIAMCINOLONE ACETONIDE 0.1% OINT 15 GM TUBE TOPICAL SCH ×2 (09:00→21:00)
[2017-05-27] MEDS: METOPROLOL TARTRATE 25 MG TAB PO SCH ×2 (09:18→21:32)
[2017-05-27] MEDS: OXcarbazepine 300 MG TAB PO SCH ×2 (09:19→21:33)
[2017-05-27] MEDS: QUEtiapine FUMARATE 100 MG TAB PO SCH (09:19)
[2017-05-27] MEDS: CETIRIZINE HCL 10 MG TAB PO SCH (09:19)
[2017-05-27] MEDS: DIVALPROEX SODIUM E.R. 500 MG TAB PO SCH ×2 (09:19→21:00)
[2017-05-27] MEDS: LACTULOSE SYRUP 20 GM/30 ML CUP PO SCH ×2 (09:23→21:33)
[2017-05-27] MEDS: LORazepam 1 MG TAB PO PRN (15:32)
--- NOTE | 2017-05-27 17:58 | HHI.PYPN ---
Subjective Remarks Patient seen for SECOND OPINION; chart reviewed. Patient found eating snack in common area but able to engage in interview. Patient states that she has been feeling "good", noted to be ambulating with walker. She states having been brought to the hosptial by police but could not recall details of why she was brought here. She reports living in [facility] for the past 24 years. She states that she takes her "nervous breakdown meds" but unable to recall them. 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 Currently she states feeling "good", denies any perceptual disturbances at this time. Review of Systems Except as stated in HPI: all other systems reviewed are Neg Objective Alert: Yes [place]: Person Mood: Calm Affect: Labile Memory Intact: Comment (impaired) Hallucinations: Other (denies at time of interview) Delusions: Yes Delusion Type: Paranoid, Other Suicidal: Ideation (denies) Homicidal: Ideation (denies) Insight/Judgment poor insight, impulse control and judgment Vitals/IOs Vital Signs Date Time Temp Pulse Resp B/P (MAP) Pulse Ox O2 Delivery O2 Flow Rate FiO2 05/27/17 05:59 96.6 68 18 125/75 (92) 05/25/17 17:57 100 Room Air Intake and Output 05/27/17 05/27/17 05/28/17 08:00 16:00 00:00 Intake Total 600 ml Balance 600 ml Assessment & Plan Problem List: (1) Paranoid type schizophrenia, chronic state ICD Codes: F20.0 - Paranoid schizophrenia Status: Acute Assessment & Plan I have seen and examined this patient, reviewed the documentation, discussed personally with Dr. Faye, and I agree and concur with his assessment and plan. Patient will continue current treatment regimen and increase seroquel to 150mg PO daily/ 200mg HS, continue oxcarbazepine 300mg PO BID, depakote 500mg am /750mg HS. Recent VPA level was within therapeutic range. Continue to monitor mood and behavior Discharge planning in progress. Justification for Cont. Inpt. At risk for further decompensation if at lower level of care. Parrish Beal MD May 27, 2017 17:58
[2017-05-27 18:31] VITALS: BP 158/80; PULSE 76; RESP 18; TEMP 98; O2SAT 96
[2017-05-27] MEDS: PRAVASTATIN SOD 20 MG TAB PO SCH (21:00)
[2017-05-27] MEDS: QUEtiapine FUMARATE 200 MG TAB PO SCH (21:00)
[2017-05-27] MEDS: DIVALPROEX SODIUM E.R. 250 MG TAB PO SCH (21:31)
[2017-05-28 05:32] VITALS: BP 127/96; PULSE 78; RESP 17; TEMP 97.6
[2017-05-28] MEDS: TRIAMCINOLONE ACETONIDE 0.1% OINT 15 GM TUBE TOPICAL SCH ×2 (09:00→20:31)
[2017-05-28] MEDS ORDERED: QUEtiapine FUMARATE 100 MG TAB PO SCH (09:00)
[2017-05-28] MEDS: BUDESONIDE-FORMOTEROL 80/4.5 MCG INHALER INH SCH ×2 (09:00→21:00)
[2017-05-28] MEDS ORDERED: ALENDRONATE SODIUM 70 MG TAB PO SCH (09:00)
[2017-05-28] MEDS: METOPROLOL TARTRATE 25 MG TAB PO SCH ×2 (09:23→20:30)
[2017-05-28] MEDS: CETIRIZINE HCL 10 MG TAB PO SCH (09:23)
[2017-05-28] MEDS: DIVALPROEX SODIUM E.R. 500 MG TAB PO SCH ×2 (09:24→20:30)
[2017-05-28] MEDS: OXcarbazepine 300 MG TAB PO SCH ×2 (09:24→20:30)
[2017-05-28] MEDS: LACTULOSE SYRUP 20 GM/30 ML CUP PO SCH ×2 (09:24→20:29)
[2017-05-28] MEDS: LORazepam 1 MG TAB PO PRN ×2 (09:36→18:00)
--- NOTE | 2017-05-28 16:41 | EKG ---
Date Performed: 05/27/2017 Time Performed: 18:00:23 PTAGE: 51 years EKG: Sinus rhythm NORMAL ECG Since PREVIOUS TRACING , no significant change noted PREVIOUS TRACIN01/13/2017 18.49 DOCTOR: Crystal Tatum Interpretating Date/Time 05/28/2017 16:41:02
--- NOTE | 2017-05-28 16:50 | HHI.PYPN ---
Subjective Remarks Patient seen for follow up; chart reviewed. Patient found trying to make her bed. She states feeling "ok" , denies any problem with appetite, or bowel movement. She continues to endorse paranoid delusions of the government using her as a decoy. Review of Systems Except as stated in HPI: all other systems reviewed are Neg Objective Alert: Yes [place]: Person Mood: Calm Affect: Labile Memory Intact: Comment (impaired) Hallucinations: Other (denies at time of interview) Delusions: Yes Delusion Type: Paranoid, Other Suicidal: Ideation (denies) Homicidal: Ideation (denies) Insight/Judgment poor insight, impulse control and judgment Vitals/IOs Vital Signs Date Time Temp Pulse Resp B/P (MAP) Pulse Ox O2 Delivery O2 Flow Rate FiO2 05/28/17 05:32 97.6 78 17 127/96 (106) 05/27/17 18:31 96 05/25/17 17:57 Room Air Assessment & Plan Problem List: (1) Paranoid type schizophrenia, chronic state ICD Codes: F20.0 - Paranoid schizophrenia Status: Acute Assessment & Plan Patient continues with paranoid delusions and occasional perceptual disturbances. Increase quetiapine to 200mg AM/200mg HS, continue other medications. Recent EKG reviewed and is normal. Patient awaiting placement. Justification for Cont. Inpt. At risk for further decompensation if at lower level of care. Parrish Beal MD May 28, 2017 16:50
[2017-05-28 18:35] VITALS: BP 152/90; PULSE 83; RESP 18; TEMP 98.6; O2SAT 98
[2017-05-28] MEDS: QUEtiapine FUMARATE 200 MG TAB PO SCH (20:30)
[2017-05-28] MEDS: PRAVASTATIN SOD 20 MG TAB PO SCH (20:30)
[2017-05-28] MEDS: DIVALPROEX SODIUM E.R. 250 MG TAB PO SCH (20:30)
[2017-05-29 06:39] VITALS: BP 131/88; PULSE 87; RESP 16; TEMP 98.1; O2SAT 96
[2017-05-29] MEDS: TRIAMCINOLONE ACETONIDE 0.1% OINT 15 GM TUBE TOPICAL SCH ×2 (09:00→21:00)
[2017-05-29] MEDS: BUDESONIDE-FORMOTEROL 80/4.5 MCG INHALER INH SCH ×2 (09:00→21:54)
[2017-05-29] MEDS: OXcarbazepine 300 MG TAB PO SCH ×2 (09:20→21:54)
[2017-05-29] MEDS: DIVALPROEX SODIUM E.R. 500 MG TAB PO SCH ×2 (09:20→21:54)
[2017-05-29] MEDS: LACTULOSE SYRUP 20 GM/30 ML CUP PO SCH ×2 (09:20→21:56)
[2017-05-29] MEDS: CETIRIZINE HCL 10 MG TAB PO SCH (09:20)
[2017-05-29] MEDS: QUEtiapine FUMARATE 100 MG TAB PO SCH (09:21)
[2017-05-29] MEDS: METOPROLOL TARTRATE 25 MG TAB PO SCH ×2 (09:21→21:54)
--- NOTE | 2017-05-29 15:01 | HHI.PYPN ---
Subjective Remarks Pt seen and discussed with staff. She is suspicious of medications but did take them eventually. She remains grandiose but is cooperative. No SI/HI Objective Alert: Yes [place]: Person Mood: Calm Affect: Labile Memory Intact: Comment (impaired) Hallucinations: Other (denies at time of interview) Delusions: Yes Delusion Type: Paranoid, Other Suicidal: Ideation (denies) Homicidal: Ideation (denies) Insight/Judgment poor Vitals/IOs Vital Signs Date Time Temp Pulse Resp B/P (MAP) Pulse Ox O2 Delivery O2 Flow Rate FiO2 05/29/17 06:39 98.1 87 16 131/88 (102) 96 05/25/17 17:57 Room Air Assessment & Plan Problem List: (1) Paranoid type schizophrenia, chronic state ICD Codes: F20.0 - Paranoid schizophrenia Status: Acute Assessment & Plan Continue current tx plan. Estimated LOS: days Justification for Cont. Inpt. risk of decompensation Ivy Quiñonez MD May 29, 2017 15:01
[2017-05-29 18:49] VITALS: BP 108/59; PULSE 96; RESP 18; TEMP 97.1; O2SAT 99
[2017-05-29] MEDS: PRAVASTATIN SOD 20 MG TAB PO SCH (21:00)
[2017-05-29] MEDS: QUEtiapine FUMARATE 200 MG TAB PO SCH (21:54)
[2017-05-29] MEDS: DIVALPROEX SODIUM E.R. 250 MG TAB PO SCH (21:55)
[2017-05-30 06:35] VITALS: BP 122/88; PULSE 95; RESP 18; TEMP 97.9; O2SAT 95
[2017-05-30] MEDS: LACTULOSE SYRUP 20 GM/30 ML CUP PO SCH ×2 (08:48→22:26)
[2017-05-30] MEDS: OXcarbazepine 300 MG TAB PO SCH ×2 (08:48→22:31)
[2017-05-30] MEDS: DIVALPROEX SODIUM E.R. 500 MG TAB PO SCH ×2 (08:49→22:31)
[2017-05-30] MEDS: QUEtiapine FUMARATE 100 MG TAB PO SCH (08:49)
[2017-05-30] MEDS: CETIRIZINE HCL 10 MG TAB PO SCH (08:49)
[2017-05-30] MEDS: METOPROLOL TARTRATE 25 MG TAB PO SCH ×2 (08:49→22:28)
[2017-05-30] MEDS: TRIAMCINOLONE ACETONIDE 0.1% OINT 15 GM TUBE TOPICAL SCH ×2 (09:00→21:00)
[2017-05-30] MEDS: BUDESONIDE-FORMOTEROL 80/4.5 MCG INHALER INH SCH ×2 (09:00→21:00)
--- NOTE | 2017-05-30 15:02 | HHI.PYPN ---
Subjective Remarks Pt seen and discussed with staff. She was belligerent and oppositional with staff yesterday. She was reluctantly compliant with medications. She states that she has been hired by the [employer] to be a guinea pig. No SI/HI. Objective Alert: Yes [place]: Person, Place, Date Mood: Calm Affect: Labile Memory Intact: Comment (impaired) Hallucinations: Other (denies at time of interview) Delusions: Yes Delusion Type: Paranoid, Other Suicidal: Ideation (denies) Homicidal: Ideation (denies) Insight/Judgment poor Vitals/IOs Vital Signs Date Time Temp Pulse Resp B/P (MAP) Pulse Ox O2 Delivery O2 Flow Rate FiO2 05/30/17 06:35 97.9 95 18 122/88 (99) 95 Intake and Output 05/30/17 05/30/17 05/31/17 08:00 16:00 00:00 Intake Total 240 ml Balance 240 ml Assessment & Plan Problem List: (1) Paranoid type schizophrenia, chronic state ICD Codes: F20.0 - Paranoid schizophrenia Status: Acute Assessment & Plan Continue current tx plan. Estimated LOS: days Justification for Cont. Inpt. impairments in reality testing Ivy Quiñonez MD May 30, 2017 15:02
[2017-05-30 18:40] VITALS: BP 135/69; PULSE 84; RESP 18; TEMP 98.6; O2SAT 96
[2017-05-30] MEDS: PRAVASTATIN SOD 20 MG TAB PO SCH (21:00)
[2017-05-30] MEDS: QUEtiapine FUMARATE 200 MG TAB PO SCH (22:30)
[2017-05-30] MEDS: DIVALPROEX SODIUM E.R. 250 MG TAB PO SCH (22:31)
[2017-05-31 04:58] VITALS: BP 123/85; PULSE 91; RESP 18; TEMP 97.9; O2SAT 96
[2017-05-31] MEDS: BUDESONIDE-FORMOTEROL 80/4.5 MCG INHALER INH SCH ×2 (10:43→21:00)
[2017-05-31] MEDS: METOPROLOL TARTRATE 25 MG TAB PO SCH ×2 (10:44→23:11)
[2017-05-31] MEDS: QUEtiapine FUMARATE 100 MG TAB PO SCH (10:44)
[2017-05-31] MEDS: DIVALPROEX SODIUM E.R. 500 MG TAB PO SCH ×2 (10:45→21:00)
[2017-05-31] MEDS: LACTULOSE SYRUP 20 GM/30 ML CUP PO SCH ×2 (10:45→23:11)
[2017-05-31] MEDS: TRIAMCINOLONE ACETONIDE 0.1% OINT 15 GM TUBE TOPICAL SCH ×2 (10:50→21:00)
[2017-05-31] MEDS: CETIRIZINE HCL 10 MG TAB PO SCH (11:04)
[2017-05-31] MEDS: OXcarbazepine 300 MG TAB PO SCH ×2 (11:06→23:09)
--- NOTE | 2017-05-31 18:01 | HHI.PYPN ---
Subjective Remarks Patient seen for follow-up, chart reviewed. Discussed with nursing staff of reoprted patient being paranoid with her medications yesterday, continues to be disorganized but no aggressive behavior. Patient found eating in common area but after having finished her meal states being upset at some staff. She continues to endorse being a "decoy" for the [employer] and [employer]. She is noted to be disorganized still with some irritability but able to be redirected by staff. Review of Systems Except as stated in HPI: all other systems reviewed are Neg Objective Alert: Yes [place]: Person, Place, Date Mood: Other (irritable) Affect: Labile Memory Intact: Comment (impaired) Hallucinations: Other (denies at time of interview) Delusions: Yes Delusion Type: Paranoid, Other Suicidal: Ideation (denies) Homicidal: Ideation (denies) Insight/Judgment poor insight, impulse control and judgment Vitals/IOs Vital Signs Date Time Temp Pulse Resp B/P (MAP) Pulse Ox O2 Delivery O2 Flow Rate FiO2 05/31/17 04:58 97.9 91 18 123/85 (98) 96 Intake and Output 05/31/17 05/31/17 06/01/17 08:00 16:00 00:00 Intake Total 260 ml 260 ml Balance 260 ml 260 ml Assessment & Plan Problem List: (1) Paranoid type schizophrenia, chronic state ICD Codes: F20.0 - Paranoid schizophrenia Status: Acute Assessment & Plan Patient continues to endorse paranoid and bizarre delusions of being a "decoy" for government agencies. Will increase quetiapine to 200mg AM/300mg HS for psychosis. Monitor for medication response and possible ADRs. Discharge planning in progress. Justification for Cont. Inpt. At risk for further decompensation if at lower level of care Parrish Beal MD May 31, 2017 18:01
[2017-05-31] MEDS: PRAVASTATIN SOD 20 MG TAB PO SCH (21:00)
[2017-05-31] MEDS ORDERED: QUEtiapine FUMARATE 300 MG TAB PO SCH (21:00)
[2017-05-31 22:00] VITALS: BP 121/79; PULSE 80; RESP 20
[2017-05-31] MEDS: DIVALPROEX SODIUM E.R. 250 MG TAB PO SCH (23:09)
[2017-06-01 06:00] VITALS: BP 133/72; PULSE 91; RESP 20; TEMP 98.7; O2SAT 95
[2017-06-01] MEDS: CETIRIZINE HCL 10 MG TAB PO SCH (09:24)
[2017-06-01] MEDS: DIVALPROEX SODIUM E.R. 500 MG TAB PO SCH ×2 (09:24→21:41)
[2017-06-01] MEDS: OXcarbazepine 300 MG TAB PO SCH ×2 (09:24→21:40)
[2017-06-01] MEDS: QUEtiapine FUMARATE 100 MG TAB PO SCH (09:25)
[2017-06-01] MEDS: BUDESONIDE-FORMOTEROL 80/4.5 MCG INHALER INH SCH ×2 (09:25→21:00)
[2017-06-01] MEDS: METOPROLOL TARTRATE 25 MG TAB PO SCH ×2 (09:25→21:41)
[2017-06-01] MEDS: LACTULOSE SYRUP 20 GM/30 ML CUP PO SCH ×2 (09:29→21:00)
[2017-06-01] MEDS: TRIAMCINOLONE ACETONIDE 0.1% OINT 15 GM TUBE TOPICAL SCH ×2 (09:34→21:00)
[2017-06-01] MEDS: LORazepam 2 MG/ML VIAL IM PRN (15:18)
--- NOTE | 2017-06-01 16:26 | HHI.PYPN ---
Subjective Remarks Patient seen for follow-up, chart reviewed. Discussion with nursing staff, patient refused some of her medications last night, noted to be paranoid, had to be redirected after she was pulling out the bedsheets from her bed. Patient was found in the day room sitting watching television, noted to be irritable and refused to engage in interview with writer technical publications and counselor. Patient has been irritable with staff as well. Review of Systems Except as stated in HPI: all other systems reviewed are Neg Objective Alert: Yes [place]: Person, Place, Date Mood: Other (irritable) Affect: Other (irritable) Memory Intact: Comment (impaired) Hallucinations: Other (denies at time of interview) Delusions: Yes Delusion Type: Paranoid, Other Suicidal: Ideation (denies) Homicidal: Ideation (denies) Insight/Judgment poor insight, impulse control and judgment Vitals/IOs Vital Signs Date Time Temp Pulse Resp B/P (MAP) Pulse Ox O2 Delivery O2 Flow Rate FiO2 06/01/17 06:00 98.7 91 20 133/72 (92) 95 Intake and Output 06/01/17 06/01/17 06/02/17 08:00 16:00 00:00 Intake Total 840 ml Balance 840 ml Assessment & Plan Problem List: (1) Paranoid type schizophrenia, chronic state ICD Codes: F20.0 - Paranoid schizophrenia Status: Acute Assessment & Plan Patient continues to have poor impulse control, paranoia, and delusions of being a "decoy" for government agencies. Patient requires re-direction at times from staff. Will increase quetiapine to 200mg PO daily and 300mg PO HS with upward titration as needed for psychosis. Will order mouth checks as patient may be cheeking medications.Discharge planning in progress. Justification for Cont. Inpt. At risk for further decompensation if at lower level of care. Parrish Beal MD Jun 01, 2017 16:25
[2017-06-01 17:21] VITALS: BP 114/81; PULSE 102; RESP 17; TEMP 98.4; O2SAT 98
[2017-06-01 21:00] VITALS: PULSE 98; RESP 18; TEMP 97.8; O2SAT 97
[2017-06-01] MEDS ORDERED: QUEtiapine FUMARATE 100 MG TAB PO SCH (21:00)
[2017-06-01] MEDS: PRAVASTATIN SOD 20 MG TAB PO SCH (21:00)
[2017-06-01] MEDS: DIVALPROEX SODIUM E.R. 250 MG TAB PO SCH (21:42)
[2017-06-02 06:24] VITALS: BP 127/74; PULSE 100; RESP 19; TEMP 98.4; O2SAT 97
[2017-06-02] MEDS: METOPROLOL TARTRATE 25 MG TAB PO SCH ×2 (09:00→21:00)
[2017-06-02] MEDS: CETIRIZINE HCL 10 MG TAB PO SCH (09:00)
[2017-06-02] MEDS: OXcarbazepine 300 MG TAB PO SCH ×2 (09:00→21:00)
[2017-06-02] MEDS: LACTULOSE SYRUP 20 GM/30 ML CUP PO SCH ×2 (09:00→21:00)
[2017-06-02] MEDS: TRIAMCINOLONE ACETONIDE 0.1% OINT 15 GM TUBE TOPICAL SCH ×2 (09:00→21:00)
[2017-06-02] MEDS: BUDESONIDE-FORMOTEROL 80/4.5 MCG INHALER INH SCH ×2 (09:00→20:35)
[2017-06-02] MEDS: QUEtiapine FUMARATE 100 MG TAB PO SCH (09:00)
[2017-06-02] MEDS: DIVALPROEX SODIUM E.R. 500 MG TAB PO SCH ×2 (10:21→20:36)
--- NOTE | 2017-06-02 10:57 | PD.TTN ---
Patient Problems 1. Discharge planning 2. Medication compliance 3. Knowledge deficit 4. Lack of coping skills Progress Toward Goals Provider Present: Dr. Tristian Beal Provider Input: Dr. Beal reported the patient remains psychotic and he has ordered mouth checks to ensure patient is medication compliant. Psychiatric Counselors Present: NIKKI Pradhan Psych Therapist Input: Counselor reported the patient remains delusional, actively responding to internal stimuli, and is intrusive with peers and staff. Counselor reported observing the patient refusing to exit the shower yesterday. Patient had been in the shower for two hours. She was not easily redirected. Group Spec/RT/OT/RODRIGUEZ Present: August Maguire OT (Dniesh reported the patient rarely attends groups.) Documentation Scribe: NIKKI Pradhan Date Resolved: Jun 02, 2017 Nica Serna Jun 02, 2017 10:57
--- NOTE | 2017-06-02 14:52 | EKG ---
Date Performed: 06/01/2017 Time Performed: 22:40:30 PTAGE: 51 years EKG: SINUS TACHYCARDIA POSSIBLE LEFT ATRIAL ENLARGEMENT NONSPECIFIC ST & T-WAVE ABNORMALITY ABNO RMAL RHYTHM ECG PREVIOUS TRACING : 05/27/2017 18.00 Compared to the previous tracing rate faster DOCTOR: Todd Hoyos Interpretating Date/Time 06/02/2017 14:52:20
--- NOTE | 2017-06-02 16:16 | HHI.PYPN ---
Subjective Remarks Patient seen for follow-up, chart reviewed. Discussion with nursing staff, patient intrusive, beligerent with peers and staff, demanding and noted to be talking to self; disorganized. Patient found lying on hospital bed, noted to be disorganized, intrusive. Patient reports not having been given her morning medications as she was not "woken up" despite nursing having nursing staff provide her medications which she refused. Patient was not able to sustain conversation due to current psychosis. Review of Systems Except as stated in HPI: all other systems reviewed are Neg Objective Alert: Yes [place]: Person, Place, Date Mood: Other (irritable) Affect: Other (irritable) Memory Intact: Comment (impaired) Hallucinations: Other (denies at time of interview) Delusions: Yes Delusion Type: Paranoid, Other (delusions of persecution from government) Suicidal: Ideation (denies) Homicidal: Ideation (denies) Insight/Judgment poor insight, impulse control and judgement Vitals/IOs Vital Signs Date Time Temp Pulse Resp B/P (MAP) Pulse Ox O2 Delivery O2 Flow Rate FiO2 06/02/17 06:24 98.4 100 19 127/74 (91) 97 Assessment & Plan Problem List: (1) Paranoid type schizophrenia, chronic state ICD Codes: F20.0 - Paranoid schizophrenia Status: Acute Assessment & Plan Patient noted to be more psychotic as she had started refusing her medications; noted to be more disorganized, with poor impulse control and insight. Will switch quetiapine to risperidone as there had been poor response to quetiapine thus far. She is continuing taking depakote but refusing carbamazepine. Patient will present to mental health court tomorrow for petition for involuntary admission. Discharge planning in progress. Justification for Cont. Inpt. At risk for further decompensation if at lower level of care. Parrish Beal MD Jun 02, 2017 16:16
[2017-06-02 18:00] VITALS: BP 128/64; PULSE 101; RESP 18; TEMP 96; O2SAT 98
[2017-06-02] MEDS: DIVALPROEX SODIUM E.R. 250 MG TAB PO SCH (20:37)
[2017-06-02] MEDS ORDERED: QUEtiapine FUMARATE 200 MG TAB PO SCH (21:00)
[2017-06-02] MEDS: PRAVASTATIN SOD 20 MG TAB PO SCH (21:00)
[2017-06-02] MEDS: LORazepam 2 MG/ML VIAL IM PRN (21:05)
[2017-06-03 06:21] VITALS: BP 138/89; PULSE 79; RESP 18; TEMP 97.6; O2SAT 99
[2017-06-03] MEDS: BUDESONIDE-FORMOTEROL 80/4.5 MCG INHALER INH SCH ×2 (08:12→21:00)
[2017-06-03] MEDS: OXcarbazepine 300 MG TAB PO SCH ×2 (08:13→21:00)
[2017-06-03] MEDS: CETIRIZINE HCL 10 MG TAB PO SCH (08:13)
[2017-06-03] MEDS: METOPROLOL TARTRATE 25 MG TAB PO SCH ×2 (08:13→21:00)
[2017-06-03] MEDS: LACTULOSE SYRUP 20 GM/30 ML CUP PO SCH ×2 (08:13→21:00)
[2017-06-03] MEDS: DIVALPROEX SODIUM E.R. 500 MG TAB PO SCH ×2 (08:13→21:00)
[2017-06-03] MEDS: TRIAMCINOLONE ACETONIDE 0.1% OINT 15 GM TUBE TOPICAL SCH ×2 (09:00→21:00)
--- NOTE | 2017-06-03 16:18 | HHI.PYPN ---
Subjective Remarks Patient seen for follow-up, chart reviewed. Patient was presented to mental health court today which cleaning specialist granted petition for involuntary admission. Patient during court stated that she wanted to stay in the hospital to receive her "nervous breakdown meds". Patient was noted to be disorganized in court and had to be redirected back to the unit. Discussion with nursing staff, patient paranoid with her medications and required more encouragement with liquid form compared to tablets. Review of Systems Except as stated in HPI: all other systems reviewed are Neg Objective Alert: Yes [place]: Person, Place, Date Mood: Other (irritable) Affect: Other (irritable) Memory Intact: Comment (impaired) Hallucinations: Other (denies at time of interview) Delusions: Yes Delusion Type: Paranoid, Other (delusions of persecution from government) Suicidal: Ideation (denies) Homicidal: Ideation (denies) Insight/Judgment poor insight, impulse control and judgment Vitals/IOs Vital Signs Date Time Temp Pulse Resp B/P (MAP) Pulse Ox O2 Delivery O2 Flow Rate FiO2 06/03/17 06:21 97.6 79 18 138/89 (105) 99 Assessment & Plan Problem List: (1) Paranoid type schizophrenia, chronic state ICD Codes: F20.0 - Paranoid schizophrenia Status: Acute Assessment & Plan Patient continues with disorganiztion, paranoid delusions, poor impulse control and psychotic. Will change risperidone liquid to tablets for now and will continue to monitor adherence. Patient retained as petition for involuntary admission was granted. Patient with 5 previous psychiatric admissions this year. Will consider referral to [facility]. Justification for Cont. Inpt. At risk for further decompensation if at lower level of care. Parrish Beal MD Jun 03, 2017 16:18
[2017-06-03 20:31] VITALS: BP 127/80; PULSE 102; RESP 18; TEMP 97.6; O2SAT 97
[2017-06-03] MEDS: risperiDONE 1 MG TAB PO SCH (21:00)
[2017-06-03] MEDS: PRAVASTATIN SOD 20 MG TAB PO SCH (21:00)
[2017-06-03] MEDS: DIVALPROEX SODIUM E.R. 250 MG TAB PO SCH (21:00)
[2017-06-03 21:44] LABS: AUTOMATED NEUTROPHIL # 3.2 TH/MM3 (1.8-7.7); BASOPHIL % 0.2 % (0.0-2.0); EOSINOPHIL % 0.7 % (0.0-4.0); HEMATOCRIT 36.7 % (35.0-46.0); HEMO FLAGS DIFF FINAL; LYMPH % 29.4 % (9.0-44.0); LYMPHOCYTE # 1.6 TH/MM3 (1.0-4.8); MEAN CELL VOLUME 96.7 FL (80.0-100.0); MEAN CORPUSCULAR HEMOGLOBIN 32.3 PG (27.0-34.0); MEAN CORPUSCULAR HGB CONC 33.4 % (32.0-36.0); MONO % 9.9 % (0.0-8.0); NEUT % 59.8 % (16.0-70.0); PLATELET COUNT 209 TH/MM3 (150-450); RED CELL DISTRIBUTION WIDTH 13.7 % (11.6-17.2); WHITE BLOOD COUNT 5.3 TH/MM3 (4.0-11.0)
[2017-06-03 21:50] LABS: BICARBONATE 30.5 MEQ/L (21.0-32.0); POTASSIUM 4.1 MEQ/L (3.5-5.1)
[2017-06-04 05:31] VITALS: BP 138/93; PULSE 92; RESP 17; TEMP 97.4; O2SAT 100
[2017-06-04] MEDS: BUDESONIDE-FORMOTEROL 80/4.5 MCG INHALER INH SCH ×2 (09:00→21:00)
[2017-06-04] MEDS: TRIAMCINOLONE ACETONIDE 0.1% OINT 15 GM TUBE TOPICAL SCH ×2 (09:00→21:00)
[2017-06-04] MEDS: LACTULOSE SYRUP 20 GM/30 ML CUP PO SCH ×2 (09:06→21:00)
[2017-06-04] MEDS: OXcarbazepine 300 MG TAB PO SCH ×2 (09:06→21:00)
[2017-06-04] MEDS: CETIRIZINE HCL 10 MG TAB PO SCH (09:06)
[2017-06-04] MEDS: risperiDONE 1 MG TAB PO SCH (09:07)
[2017-06-04] MEDS: DIVALPROEX SODIUM E.R. 500 MG TAB PO SCH ×2 (09:08→21:00)
[2017-06-04] MEDS: METOPROLOL TARTRATE 25 MG TAB PO SCH ×2 (09:10→21:00)
[2017-06-04 17:10] VITALS: BP 115/68; PULSE 97; RESP 17; TEMP 97.8; O2SAT 95
[2017-06-04] MEDS: LORazepam 1 MG TAB PO PRN (18:33)
[2017-06-04] MEDS: DIVALPROEX SODIUM E.R. 250 MG TAB PO SCH (21:00)
[2017-06-04] MEDS: risperiDONE 3 MG TAB PO SCH (21:00)
[2017-06-04] MEDS: PRAVASTATIN SOD 20 MG TAB PO SCH (21:00)
[2017-06-04] MEDS: traZODone HCL 50 MG TAB PO PRN (21:50)
--- NOTE | 2017-06-04 23:14 | HHI.PYPN ---
Subjective Remarks Patient seen for follow up; chart reviewed. Patient found in the day room working on assignment that was given to the patients in group therapy. She states that she is sleeping ok, eating and drinking ok, rerports maintaining her hygiene. She states that taking her medications. Today she is noted to be less impulsive, less intrusive but continues to be disorganized at times. Review of Systems Except as stated in HPI: all other systems reviewed are Neg Objective Alert: Yes [place]: Person, Place, Date Mood: Calm Affect: Restricted, Other Memory Intact: Comment (impaired) Hallucinations: Other (denies at time of interview) Delusions: Yes Delusion Type: Paranoid, Other (delusions of persecution from government) Suicidal: Ideation (denies) Homicidal: Ideation (denies) Insight/Judgment poor insight, impulse control and judgment Vitals/IOs Vital Signs Date Time Temp Pulse Resp B/P (MAP) Pulse Ox O2 Delivery O2 Flow Rate FiO2 06/04/17 17:10 97.8 97 17 115/68 (84) 95 Assessment & Plan Problem List: (1) Paranoid type schizophrenia, chronic state ICD Codes: F20.0 - Paranoid schizophrenia Status: Acute Assessment & Plan Patient continues to be disorganized, paranoid and persecutory delusions but noted to be less impulsive and intrusive today as well as improving in adherence with treatment. Will increase risperidone to 2mg AM and 3mg HS for psychosis. Monitor for medication response and ADRs. Continue to encourage good hygiene and participation in groups and activities. Discharge planning in progress. Justification for Cont. Inpt. At risk for further decompensation if at lower level of care. Parrish Beal MD Jun 04, 2017 23:14
[2017-06-05 06:09] VITALS: BP 118/77; PULSE 125; RESP 18; TEMP 97.5; O2SAT 94
[2017-06-05] MEDS: TRIAMCINOLONE ACETONIDE 0.1% OINT 15 GM TUBE TOPICAL SCH ×2 (09:00→21:00)
[2017-06-05] MEDS: BUDESONIDE-FORMOTEROL 80/4.5 MCG INHALER INH SCH ×2 (09:00→21:00)
[2017-06-05] MEDS: DIVALPROEX SODIUM E.R. 500 MG TAB PO SCH ×2 (10:03→22:02)
[2017-06-05] MEDS: risperiDONE 1 MG TAB PO SCH (10:04)
[2017-06-05] MEDS: OXcarbazepine 300 MG TAB PO SCH ×2 (10:07→22:03)
[2017-06-05] MEDS: LACTULOSE SYRUP 20 GM/30 ML CUP PO SCH ×2 (10:09→22:02)
[2017-06-05] MEDS: CETIRIZINE HCL 10 MG TAB PO SCH (10:11)
[2017-06-05] MEDS: METOPROLOL TARTRATE 25 MG TAB PO SCH ×2 (10:12→22:03)
--- NOTE | 2017-06-05 17:34 | HHI.PYPN ---
Subjective Remarks Patient was seen and case discussed with nursing. Patient remains disorganized and disheveled. Asking about her diagnosis. Thought processes disorganized and tangential. Behaving well on the unit. Tolerating medications well. Responding to internal stimuli Objective Alert: Yes [place]: Person, Place, Date Mood: Calm Affect: Appropriate Memory Intact: Comment (impaired) Hallucinations: Other (denies at time of interview) Delusions: Yes Delusion Type: Paranoid (vigilance), Other (delusions of persecution from government) Suicidal: Ideation (denies) Homicidal: Ideation (denies) Insight/Judgment Poor Vitals/IOs Vital Signs Date Time Temp Pulse Resp B/P (MAP) Pulse Ox O2 Delivery O2 Flow Rate FiO2 06/05/17 06:09 97.5 125 18 118/77 (91) 94 Assessment & Plan Problem List: (1) Paranoid type schizophrenia, chronic state ICD Codes: F20.0 - Paranoid schizophrenia Status: Acute Assessment & Plan Continue current treatment plan Justification for Cont. Inpt. Patient would decompensate in a less restrictive setting Evans Redding DO Jun 05, 2017 17:34
[2017-06-05] MEDS: PRAVASTATIN SOD 20 MG TAB PO SCH (21:00)
[2017-06-05] MEDS: traZODone HCL 50 MG TAB PO PRN (22:02)
[2017-06-05] MEDS: risperiDONE 3 MG TAB PO SCH (22:03)
[2017-06-05] MEDS: DIVALPROEX SODIUM E.R. 250 MG TAB PO SCH (22:03)
[2017-06-06 04:46] VITALS: BP 131/81; PULSE 108; RESP 18; TEMP 97.8; O2SAT 98
[2017-06-06] MEDS: BUDESONIDE-FORMOTEROL 80/4.5 MCG INHALER INH SCH ×2 (09:00→20:28)
[2017-06-06] MEDS: TRIAMCINOLONE ACETONIDE 0.1% OINT 15 GM TUBE TOPICAL SCH ×2 (09:00→21:00)
[2017-06-06] MEDS: METOPROLOL TARTRATE 25 MG TAB PO SCH ×2 (09:46→20:28)
[2017-06-06] MEDS: CETIRIZINE HCL 10 MG TAB PO SCH (09:46)
[2017-06-06] MEDS: DIVALPROEX SODIUM E.R. 500 MG TAB PO SCH ×2 (09:46→20:26)
[2017-06-06] MEDS: risperiDONE 1 MG TAB PO SCH (09:46)
[2017-06-06] MEDS: LACTULOSE SYRUP 20 GM/30 ML CUP PO SCH ×2 (09:46→20:28)
[2017-06-06] MEDS: OXcarbazepine 300 MG TAB PO SCH ×2 (09:46→20:27)
--- NOTE | 2017-06-06 12:03 | HHI.PYPN ---
Subjective Remarks Patient was seen and case discussed with nursing. Patient remains disheveled and disorganized. Guarded during questioning. Seen talking to herself and responding to internal stimuli. Tolerating medications well Objective Alert: Yes [place]: Person, Place, Date Mood: Calm Affect: Appropriate Memory Intact: Comment (impaired) Hallucinations: Other (denies at time of interview) Delusions: Yes Delusion Type: Paranoid (vigilance) Suicidal: Ideation (denies) Homicidal: Ideation (denies) Insight/Judgment Poor Vitals/IOs Vital Signs Date Time Temp Pulse Resp B/P (MAP) Pulse Ox O2 Delivery O2 Flow Rate FiO2 06/06/17 04:46 97.8 108 18 131/81 (98) 98 Assessment & Plan Problem List: (1) Paranoid type schizophrenia, chronic state ICD Codes: F20.0 - Paranoid schizophrenia Status: Acute Assessment & Plan Continue current treatment plan Justification for Cont. Inpt. Patient will decompensate in a less restrictive setting Evans Redding DO Jun 06, 2017 12:03
[2017-06-06] MEDS: PRAVASTATIN SOD 20 MG TAB PO SCH (20:26)
[2017-06-06] MEDS: risperiDONE 3 MG TAB PO SCH (20:27)
[2017-06-06] MEDS: DIVALPROEX SODIUM E.R. 250 MG TAB PO SCH (20:27)
[2017-06-07 06:28] VITALS: BP 130/76; PULSE 92; RESP 16; TEMP 97.8; O2SAT 97
[2017-06-07] MEDS: LACTULOSE SYRUP 20 GM/30 ML CUP PO SCH ×2 (08:51→21:00)
[2017-06-07] MEDS: BUDESONIDE-FORMOTEROL 80/4.5 MCG INHALER INH SCH ×2 (08:51→21:00)
[2017-06-07] MEDS: DIVALPROEX SODIUM E.R. 500 MG TAB PO SCH ×2 (08:52→21:00)
[2017-06-07] MEDS: CETIRIZINE HCL 10 MG TAB PO SCH (08:52)
[2017-06-07] MEDS: METOPROLOL TARTRATE 25 MG TAB PO SCH ×2 (08:53→21:00)
[2017-06-07] MEDS: risperiDONE 1 MG TAB PO SCH ×2 (08:54→21:00)
[2017-06-07] MEDS: OXcarbazepine 300 MG TAB PO SCH ×2 (09:00→21:00)
[2017-06-07] MEDS: TRIAMCINOLONE ACETONIDE 0.1% OINT 15 GM TUBE TOPICAL SCH ×2 (09:00→21:00)
--- NOTE | 2017-06-07 15:57 | HHI.PYPN ---
Subjective Remarks Patient seen for follow-up, chart reviewed. Patient found walking around the unit with walker, able to engage in interview. Patient continues to be noted to be disorganized but noted to be able to remain more engaged in interview with less impulsiveness and more receptive to re-direction. Patient states that most of the time she is "happy", attending groups and activities, taking her medications. She reports tolerating her medications; denies any ADRs; denies any perceptual disturbances but noted to be internally preoccupied at times. Review of Systems Except as stated in HPI: all other systems reviewed are Neg Objective Alert: Yes [place]: Person, Place, Date Mood: Calm Affect: Labile, Other Memory Intact: Comment (impaired) Hallucinations: Other (denies at time of interview) Delusions: Yes Delusion Type: Paranoid (vigilance) Suicidal: Ideation (denies) Homicidal: Ideation (denies) Insight/Judgment poor insight, improving impulse control and limited judgment Vitals/IOs Vital Signs Date Time Temp Pulse Resp B/P (MAP) Pulse Ox O2 Delivery O2 Flow Rate FiO2 06/07/17 06:28 97.8 92 16 130/76 (94) 97 Assessment & Plan Problem List: (1) Paranoid type schizophrenia, chronic state ICD Codes: F20.0 - Paranoid schizophrenia Status: Acute Assessment & Plan Patient continues to be disorganized but less so and less impulsive but continues to require re-direction. Will increase risperidone 3mg PO BID for psychosis, continue rest of medications. Discharge planning in progress. Justification for Cont. Inpt. At risk for further decompensation if at lower level of care. Parrish Beal MD Jun 07, 2017 15:57
[2017-06-07 17:51] VITALS: BP 116/76; PULSE 105; RESP 18; TEMP 97.5; O2SAT 94
[2017-06-07] MEDS: PRAVASTATIN SOD 20 MG TAB PO SCH (21:00)
[2017-06-07] MEDS: DIVALPROEX SODIUM E.R. 250 MG TAB PO SCH (21:00)
[2017-06-08 06:32] VITALS: BP 102/82; PULSE 110; RESP 18; TEMP 98.3
[2017-06-08] MEDS: LACTULOSE SYRUP 20 GM/30 ML CUP PO SCH ×2 (08:32→20:16)
[2017-06-08] MEDS: OXcarbazepine 300 MG TAB PO SCH ×2 (08:34→20:17)
[2017-06-08] MEDS: METOPROLOL TARTRATE 25 MG TAB PO SCH ×2 (08:34→20:17)
[2017-06-08] MEDS: DIVALPROEX SODIUM E.R. 500 MG TAB PO SCH ×2 (08:34→20:16)
[2017-06-08] MEDS: risperiDONE 1 MG TAB PO SCH ×2 (08:36→20:16)
[2017-06-08] MEDS: CETIRIZINE HCL 10 MG TAB PO SCH (08:37)
[2017-06-08] MEDS: BUDESONIDE-FORMOTEROL 80/4.5 MCG INHALER INH SCH ×2 (08:38→20:17)
[2017-06-08] MEDS: TRIAMCINOLONE ACETONIDE 0.1% OINT 15 GM TUBE TOPICAL SCH ×2 (10:49→20:17)
--- NOTE | 2017-06-08 16:15 | HHI.PYPN ---
Subjective Remarks Patient seen for follow-up, chart reviewed. Patient is found walking on the unit, noted to be more organized with more impulse control but continues to have paranoid delusions. She states that she is a "guinea pig for [employer]SI" and now denies any government involvment. She denies any perceptual disturbances. Review of Systems Except as stated in HPI: all other systems reviewed are Neg Objective Alert: Yes [place]: Person, Place, Date Mood: Calm Affect: Labile, Other Memory Intact: Comment (impaired) Hallucinations: Other (denies at time of interview) Delusions: Yes Delusion Type: Paranoid (vigilance) Suicidal: Ideation (denies) Homicidal: Ideation (denies) Insight/Judgment poor insight, slightly improved impulse control and poor judgment Vitals/IOs Vital Signs Date Time Temp Pulse Resp B/P (MAP) Pulse Ox O2 Delivery O2 Flow Rate FiO2 06/08/17 06:32 98.3 110 18 102/82 (89) 06/07/17 17:51 94 Intake and Output 06/08/17 06/08/17 06/09/17 08:00 16:00 00:00 Intake Total 240 ml Balance 240 ml Assessment & Plan Problem List: (1) Paranoid type schizophrenia, chronic state ICD Codes: F20.0 - Paranoid schizophrenia Status: Acute Assessment & Plan Patient continues to be disorganized but noted be improving. Increaese risperidone, continue rest of meds. Discharge planning in progess Justification for Cont. Inpt. At risk for further decompensation if at lower level of care. Parrish Beal MD Jun 08, 2017 16:15
[2017-06-08 18:09] VITALS: BP 106/83; PULSE 102; RESP 18; TEMP 97.2; O2SAT 98
[2017-06-08] MEDS: DIVALPROEX SODIUM E.R. 250 MG TAB PO SCH (20:16)
[2017-06-08] MEDS: PRAVASTATIN SOD 20 MG TAB PO SCH (20:17)
[2017-06-08] MEDS: traZODone HCL 50 MG TAB PO PRN (20:17)
[2017-06-09 05:28] VITALS: BP 101/61; PULSE 88; RESP 18; TEMP 98.3; O2SAT 90
[2017-06-09] MEDS: LACTULOSE SYRUP 20 GM/30 ML CUP PO SCH ×2 (08:24→20:27)
[2017-06-09] MEDS: DIVALPROEX SODIUM E.R. 500 MG TAB PO SCH ×2 (08:25→20:27)
[2017-06-09] MEDS: OXcarbazepine 300 MG TAB PO SCH ×2 (08:26→20:25)
[2017-06-09] MEDS: CETIRIZINE HCL 10 MG TAB PO SCH (08:26)
[2017-06-09] MEDS: risperiDONE 1 MG TAB PO SCH ×2 (08:27→20:30)
[2017-06-09] MEDS: METOPROLOL TARTRATE 25 MG TAB PO SCH ×2 (08:33→20:25)
[2017-06-09] MEDS: TRIAMCINOLONE ACETONIDE 0.1% OINT 15 GM TUBE TOPICAL SCH ×2 (08:34→21:00)
[2017-06-09] MEDS: BUDESONIDE-FORMOTEROL 80/4.5 MCG INHALER INH SCH ×2 (08:34→21:00)
--- NOTE | 2017-06-09 16:16 | HHI.PYPN ---
Subjective Remarks Patient seen for follow-up, chart reviewed. Patient states that her mood has been "always good", noted to be childlike at times and wanting to return back to her residence at [facility] as she was wanting to attend [employer] which she usually is transported from her residence they're back. Patient patient denies any auditory hallucinations and seems to be less paranoid and delusional today as she has not mentioned being a guinea pig for the government or SSI. She continues to be noted to be somewhat tangential at times and was asking why she has not had any visitors. Review of Systems Except as stated in HPI: all other systems reviewed are Neg Mental Status Examination Consciousness: Alert Appearance: Inappropriate (disheveled but has been maintaining hygiene by taking showers) Speech: Tangential Orientation: x3 Memory: Unremarkable Thought Content: Paranoid (less so today), Delusional (less so today) Thought Associations: Tangential (at times) Language: Other (fluid and spontaneous) Fund of Knowledge: Below average Hallucination Type: None Attention and Concentration: Easily Distracted Suicidal Ideation: No Previous Suicide Attempts: No Homicidal Ideation: No Previous Homicide Attempts: No Insight: Poor Judgment: Poor (but adherent to medications) Affect: Labile Mood: Other ("always good") Motor Activity: Normal gait Results Vitals/IOs Vital Signs Date Time Temp Pulse Resp B/P (MAP) Pulse Ox O2 Delivery O2 Flow Rate FiO2 06/09/17 05:28 98.3 88 18 101/61 (74) 90 Assessment & Plan Problem List: (1) Paranoid type schizophrenia, chronic state ICD Codes: F20.0 - Paranoid schizophrenia Status: Acute Assessment & Plan Patient noted to be less disorganized, less impulsive, no longer has been having verbal outbursts and noted to be more cooperative with staff, less delusional, and attending groups and activities and maintaining her hygiene. Patient to continue current treatment. Patient likely to be able to return to residence. We'll contact them to arrange f possible discharge soon. We'll attempt to have patient accept long-acting injectable of Risperdal Consta of 50 mg IM every 2 weeks. Discharge planning in progress Justification for Cont. Inpt. At risk for further decompensation if at lower level of care Parrish Beal MD Jun 09, 2017 16:16
[2017-06-09 16:58] VITALS: BP 110/69; PULSE 92; RESP 18; TEMP 97.9; O2SAT 98
[2017-06-09] MEDS: DIVALPROEX SODIUM E.R. 250 MG TAB PO SCH (20:26)
[2017-06-09] MEDS: PRAVASTATIN SOD 20 MG TAB PO SCH (20:28)
[2017-06-09 21:47] VITALS: BP 110/72
[2017-06-10 05:32] VITALS: BP 128/70; PULSE 68; RESP 16; TEMP 97.8
[2017-06-10] MEDS: BUDESONIDE-FORMOTEROL 80/4.5 MCG INHALER INH SCH ×2 (09:00→21:00)
[2017-06-10] MEDS: TRIAMCINOLONE ACETONIDE 0.1% OINT 15 GM TUBE TOPICAL SCH ×2 (09:00→21:16)
[2017-06-10] MEDS: risperiDONE 1 MG TAB PO SCH ×2 (09:37→21:16)
[2017-06-10] MEDS: DIVALPROEX SODIUM E.R. 500 MG TAB PO SCH ×2 (09:37→21:16)
[2017-06-10] MEDS: METOPROLOL TARTRATE 25 MG TAB PO SCH ×2 (09:38→21:15)
[2017-06-10] MEDS: CETIRIZINE HCL 10 MG TAB PO SCH (09:38)
[2017-06-10] MEDS: OXcarbazepine 300 MG TAB PO SCH ×2 (09:38→21:16)
[2017-06-10] MEDS: LACTULOSE SYRUP 20 GM/30 ML CUP PO SCH ×2 (09:39→21:15)
--- NOTE | 2017-06-10 17:13 | HHI.PYPN ---
Subjective Remarks Patient seen for follow-up, chart reviewed. Patient found in group therapy but able to engage in interview. Patient states feeling "pretty good", reports keeping up with her hygiene, adhering to her treatment and attending groups and activities. Patient noted to be tangential at times but able to re-engage in interview. Patient feels ready to be discharged as she states is looking forward to going to buddhism again. Review of Systems Except as stated in HPI: all other systems reviewed are Neg Mental Status Examination Appearance: Disheveled Consciousness: Alert Orientation: Person, Place Motor Activity: Normal gait Speech: Unremarkable Language: Adequate Fund of Knowledge: Inadequate Attention and Concentration: Easily Distracted Memory: Unremarkable Mood: Appropriate Affect: Appropriate Hallucination Type: None Delusion Type: Paranoid (minimal) Suicidal Ideation: No Suicidal Plan: No Suicidal Intention: No Homicidal Ideation: No Homicidal Plan: No Homicidal Intention: No Insight: Poor Judgment: Poor (but adherent to medications) Results Vitals/IOs Vital Signs Date Time Temp Pulse Resp B/P (MAP) Pulse Ox O2 Delivery O2 Flow Rate FiO2 06/10/17 05:32 97.8 68 16 128/70 (89) 06/09/17 16:58 98 Assessment & Plan Problem List: (1) Paranoid type schizophrenia, chronic state ICD Codes: F20.0 - Paranoid schizophrenia Status: Acute Assessment & Plan Patient has been noted to be more organized, no longer intrusive, easily re- directible, adhering to treatment but has minimal paranoia which is likely part of her baseline. Patient to continue current treatment. Will offer Risperdal Consta prior to discharge. Possible discharge tomorrow if accepted back to her residence. Justification for Cont. Inpt. At risk for further decompensation if at lower level of care. Parrish Beal MD Jun 10, 2017 17:13
[2017-06-10 18:19] VITALS: BP 137/89; PULSE 94; RESP 18; TEMP 97; O2SAT 97
[2017-06-10] MEDS: PRAVASTATIN SOD 20 MG TAB PO SCH (21:00)
[2017-06-10] MEDS: DIVALPROEX SODIUM E.R. 250 MG TAB PO SCH (21:15)
[2017-06-11 05:57] VITALS: BP 107/70; PULSE 90; RESP 16; TEMP 97.9; O2SAT 96
[2017-06-11 07:45] LABS: AUTOMATED NEUTROPHIL # 3.1 TH/MM3 (1.8-7.7); BASOPHIL % 0.5 % (0.0-2.0); EOSINOPHIL % 0.7 % (0.0-4.0); HEMO FLAGS DIFF FINAL; LYMPH % 27.6 % (9.0-44.0); LYMPHOCYTE # 1.4 TH/MM3 (1.0-4.8); MEAN CELL VOLUME 96.7 FL (80.0-100.0); MEAN CORPUSCULAR HEMOGLOBIN 32.9 PG (27.0-34.0); MEAN CORPUSCULAR HGB CONC 34.1 % (32.0-36.0); MONO % 8.9 % (0.0-8.0); NEUT % 62.3 % (16.0-70.0); PLATELET COUNT 185 TH/MM3 (150-450); RED BLOOD COUNT 3.83 MIL/MM3 (4.00-5.30); RED CELL DISTRIBUTION WIDTH 13.3 % (11.6-17.2); WHITE BLOOD COUNT 4.9 TH/MM3 (4.0-11.0)
[2017-06-11 08:12] LABS: BICARBONATE 32.7 MEQ/L (21.0-32.0); POTASSIUM 3.9 MEQ/L (3.5-5.1)
[2017-06-11 08:15] LABS: INDIRECT BILIRUBIN 0.1 MG/DL (0.0-0.8); TOTAL BILIRUBIN ADULT 0.2 MG/DL (0.2-1.0)
[2017-06-11] MEDS: METOPROLOL TARTRATE 25 MG TAB PO SCH ×2 (08:56→21:27)
[2017-06-11] MEDS: CETIRIZINE HCL 10 MG TAB PO SCH (08:56)
[2017-06-11] MEDS: risperiDONE 1 MG TAB PO SCH ×2 (09:00→21:27)
[2017-06-11] MEDS: OXcarbazepine 300 MG TAB PO SCH ×2 (09:00→21:27)
[2017-06-11] MEDS: DIVALPROEX SODIUM E.R. 500 MG TAB PO SCH ×2 (09:01→21:27)
[2017-06-11] MEDS: LACTULOSE SYRUP 20 GM/30 ML CUP PO SCH ×2 (09:01→21:26)
[2017-06-11] MEDS: BUDESONIDE-FORMOTEROL 80/4.5 MCG INHALER INH SCH ×2 (09:06→21:00)
[2017-06-11] MEDS: TRIAMCINOLONE ACETONIDE 0.1% OINT 15 GM TUBE TOPICAL SCH ×2 (09:07→21:25)
--- NOTE | 2017-06-11 14:05 | HHI.PYPN ---
Subjective Remarks Patient seen for follow-up, chart reviewed. Patient found walking in the hallway able to engage in interview to today. Patient states that she been feeling "okay" denies any perceptual disturbances, reports maintaining her hygiene with daily showers. Patient with no physical complaint at this time patient aware that she will likely be able to go back to her living facility and is currently waiting to be accepted back. Discussion with possibility of having Risperdal Consta, long-acting injectable every 2 weeks which patient agree with. Review of Systems Except as stated in HPI: all other systems reviewed are Neg Mental Status Examination Appearance: Disheveled Consciousness: Alert Orientation: Person, Place Motor Activity: Normal gait Speech: Unremarkable Language: Adequate Fund of Knowledge: Inadequate Attention and Concentration: Easily Distracted Memory: Unremarkable Mood: Appropriate Affect: Appropriate Thought Process & Associations: Tangential Thought Content: Appropriate Hallucination Type: None Delusion Type: Paranoid (minimal) Suicidal Ideation: No Suicidal Plan: No Suicidal Intention: No Homicidal Ideation: No Homicidal Plan: No Homicidal Intention: No Insight: Poor Judgment: Poor (but adherent to medications) Results Labs Test 06/11/17 07:29 White Blood Count 4.9 TH/MM3 Red Blood Count 3.83 MIL/MM3 Hemoglobin 12.6 GM/DL Hematocrit 37.0 % Mean Corpuscular Volume 96.7 FL Mean Corpuscular Hemoglobin 32.9 PG Mean Corpuscular Hemoglobin Concent 34.1 % Red Cell Distribution Width 13.3 % Platelet Count 185 TH/MM3 Mean Platelet Volume 9.5 FL Neutrophils (%) (Auto) 62.3 % Lymphocytes (%) (Auto) 27.6 % Monocytes (%) (Auto) 8.9 % Eosinophils (%) (Auto) 0.7 % Basophils (%) (Auto) 0.5 % Neutrophils # (Auto) 3.1 TH/MM3 Lymphocytes # (Auto) 1.4 TH/MM3 Monocytes # (Auto) 0.4 TH/MM3 Eosinophils # (Auto) 0.0 TH/MM3 Basophils # (Auto) 0.0 TH/MM3 CBC Comment DIFF FINAL Differential Comment Blood Urea Nitrogen 10 MG/DL Creatinine 0.57 MG/DL Random Glucose 86 MG/DL Total Protein 7.8 GM/DL Albumin 4.1 GM/DL Calcium Level 9.7 MG/DL Alkaline Phosphatase 73 U/L Aspartate Amino Transf (AST/SGOT) 11 U/L Alanine Aminotransferase (ALT/SGPT) 17 U/L Total Bilirubin 0.2 MG/DL Direct Bilirubin 0.1 MG/DL Sodium Level 134 MEQ/L Potassium Level 3.9 MEQ/L Chloride Level 95 MEQ/L Carbon Dioxide Level 32.7 MEQ/L Anion Gap 6 MEQ/L Estimat Glomerular Filtration Rate 111 ML/MIN Indirect Bilirubin 0.1 MG/DL Valproic Acid (Depakene) Level 92 MCG/ML Vitals/IOs Vital Signs Date Time Temp Pulse Resp B/P (MAP) Pulse Ox O2 Delivery O2 Flow Rate FiO2 06/11/17 05:57 97.9 90 16 107/70 (82) 96 Assessment & Plan Problem List: (1) Paranoid type schizophrenia, chronic state ICD Codes: F20.0 - Paranoid schizophrenia Status: Acute Assessment & Plan Patient at this time continues with some paranoid delusions which are now minimal, disorganized at times but redirectable. Patient likely at baseline and is now waiting for facility to accept her back. After discussion of starting long-acting injectable Risperdal Consta with patient patient agreed and will start today. Continue current treatment. Discharge planning in progress Justification for Cont. Inpt. At risk for further decompensation if a lower level of care Discharge Planning Patient to return back to her assisted living facility once statement services representative from there has been with her and is accepting her back. Parrish Beal MD Jun 11, 2017 14:05
[2017-06-11 18:00] VITALS: BP 117/64; PULSE 108; RESP 17; TEMP 97; O2SAT 95
[2017-06-11] MEDS ORDERED: [UNRECOGNIZED DRUG - OTHER] IM SCH (18:00)
[2017-06-11] MEDS: PRAVASTATIN SOD 20 MG TAB PO SCH (21:00)
[2017-06-11] MEDS: DIVALPROEX SODIUM E.R. 250 MG TAB PO SCH (21:26)
[2017-06-12 06:02] VITALS: BP 119/71; PULSE 93; RESP 18; TEMP 98; O2SAT 92
[2017-06-12] MEDS: LACTULOSE SYRUP 20 GM/30 ML CUP PO SCH ×2 (08:57→21:36)
[2017-06-12] MEDS: METOPROLOL TARTRATE 25 MG TAB PO SCH ×2 (08:59→21:36)
[2017-06-12] MEDS: DIVALPROEX SODIUM E.R. 500 MG TAB PO SCH ×2 (09:00→21:35)
[2017-06-12] MEDS: BUDESONIDE-FORMOTEROL 80/4.5 MCG INHALER INH SCH ×2 (09:00→21:00)
[2017-06-12] MEDS: OXcarbazepine 300 MG TAB PO SCH ×2 (09:00→21:35)
[2017-06-12] MEDS: risperiDONE 1 MG TAB PO SCH ×2 (09:01→21:35)
[2017-06-12] MEDS: CETIRIZINE HCL 10 MG TAB PO SCH (09:02)
[2017-06-12] MEDS: TRIAMCINOLONE ACETONIDE 0.1% OINT 15 GM TUBE TOPICAL SCH ×2 (09:03→21:36)
[2017-06-12 18:07] VITALS: BP 106/69; PULSE 102; RESP 20; O2SAT 95
--- NOTE | 2017-06-12 19:06 | HHI.PYPN ---
Subjective Remarks Pt seen and discussed with staff. Pt has been compliant with medications and denies side effects. She has been calm and cooperative with staff. No behavioral problems on unit. Mental Status Examination Appearance: Disheveled Consciousness: Alert Orientation: Person, Place Motor Activity: Normal gait Speech: Unremarkable Language: Adequate Fund of Knowledge: Inadequate Attention and Concentration: Easily Distracted Memory: Unremarkable Mood: Appropriate Affect: Appropriate Thought Process & Associations: Tangential Thought Content: Appropriate, Delusional (mild) Hallucination Type: None Delusion Type: Paranoid (minimal) Suicidal Ideation: No Suicidal Plan: No Suicidal Intention: No Homicidal Ideation: No Homicidal Plan: No Homicidal Intention: No Insight: Poor Judgment: Poor (but adherent to medications) Results Vitals/IOs Vital Signs Date Time Temp Pulse Resp B/P (MAP) Pulse Ox O2 Delivery O2 Flow Rate FiO2 06/12/17 18:07 102 20 106/69 (81) 95 06/12/17 06:02 98.0 Assessment & Plan Problem List: (1) Paranoid type schizophrenia, chronic state ICD Codes: F20.0 - Paranoid schizophrenia Status: Acute Assessment & Plan Pt improving. Continue current tx plan. Estimated LOS: days Justification for Cont. Inpt. risk of decompensation Ivy Quiñonez MD Jun 12, 2017 19:06
[2017-06-12] MEDS: DIVALPROEX SODIUM E.R. 250 MG TAB PO SCH (21:35)
[2017-06-12] MEDS: PRAVASTATIN SOD 20 MG TAB PO SCH (21:36)
[2017-06-13 06:36] VITALS: BP 129/70; PULSE 84; RESP 17; TEMP 98.2; O2SAT 96
[2017-06-13] MEDS: LACTULOSE SYRUP 20 GM/30 ML CUP PO SCH ×2 (08:31→20:29)
[2017-06-13] MEDS: OXcarbazepine 300 MG TAB PO SCH ×2 (08:31→20:30)
[2017-06-13] MEDS: DIVALPROEX SODIUM E.R. 500 MG TAB PO SCH ×2 (08:32→20:31)
[2017-06-13] MEDS: CETIRIZINE HCL 10 MG TAB PO SCH (08:32)
[2017-06-13] MEDS: risperiDONE 1 MG TAB PO SCH ×2 (08:33→20:30)
[2017-06-13] MEDS: BUDESONIDE-FORMOTEROL 80/4.5 MCG INHALER INH SCH ×2 (08:35→20:29)
[2017-06-13] MEDS: METOPROLOL TARTRATE 25 MG TAB PO SCH ×2 (09:00→20:30)
[2017-06-13] MEDS: TRIAMCINOLONE ACETONIDE 0.1% OINT 15 GM TUBE TOPICAL SCH ×2 (09:00→20:31)
--- NOTE | 2017-06-13 12:10 | HHI.PYPN ---
Subjective Remarks Pt seen and discussed with staff. Pt has been responding to internal stimuli and knocking on windows. She is compliant with medications. She told RN that she has lived at [facility] for 3 years and requested that RN be her mother. NO SI/HI Mental Status Examination Appearance: Disheveled Consciousness: Alert Orientation: Person, Place Motor Activity: Normal gait Speech: Unremarkable Language: Adequate Fund of Knowledge: Inadequate Attention and Concentration: Easily Distracted Memory: Unremarkable Mood: Appropriate Affect: Appropriate Thought Process & Associations: Tangential Thought Content: Appropriate, Delusional Hallucination Type: Auditory Delusion Type: Bizarre, Paranoid Suicidal Ideation: No Suicidal Plan: No Suicidal Intention: No Homicidal Ideation: No Homicidal Plan: No Homicidal Intention: No Insight: Poor Judgment: Poor (but adherent to medications) Results Vitals/IOs Vital Signs Date Time Temp Pulse Resp B/P (MAP) Pulse Ox O2 Delivery O2 Flow Rate FiO2 06/13/17 06:36 98.2 84 17 129/70 (89) 96 Assessment & Plan Problem List: (1) Paranoid type schizophrenia, chronic state ICD Codes: F20.0 - Paranoid schizophrenia Status: Acute Assessment & Plan Continue current tx plan. Estimated LOS: days Justification for Cont. Inpt. impairments in reality testing Ivy Quiñonez MD Jun 13, 2017 12:10
[2017-06-13 16:39] VITALS: BP 119/77; PULSE 81; RESP 18; TEMP 98.1
[2017-06-13] MEDS: PRAVASTATIN SOD 20 MG TAB PO SCH (20:30)
[2017-06-13] MEDS: DIVALPROEX SODIUM E.R. 250 MG TAB PO SCH (20:30)
[2017-06-14 06:24] VITALS: BP 120/69; PULSE 75; RESP 16; TEMP 98.6; O2SAT 95
[2017-06-14] MEDS: CETIRIZINE HCL 10 MG TAB PO SCH (08:27)
[2017-06-14] MEDS: DIVALPROEX SODIUM E.R. 500 MG TAB PO SCH ×2 (08:27→21:19)
[2017-06-14] MEDS: LACTULOSE SYRUP 20 GM/30 ML CUP PO SCH ×2 (08:27→21:18)
[2017-06-14] MEDS: BUDESONIDE-FORMOTEROL 80/4.5 MCG INHALER INH SCH ×2 (08:27→21:00)
[2017-06-14] MEDS: OXcarbazepine 300 MG TAB PO SCH ×2 (08:27→21:19)
[2017-06-14] MEDS: risperiDONE 1 MG TAB PO SCH ×2 (08:27→21:19)
[2017-06-14] MEDS: METOPROLOL TARTRATE 25 MG TAB PO SCH ×2 (08:27→21:19)
[2017-06-14] MEDS: TRIAMCINOLONE ACETONIDE 0.1% OINT 15 GM TUBE TOPICAL SCH ×2 (08:28→21:18)
--- NOTE | 2017-06-14 16:59 | HHI.PYPN ---
Subjective Remarks Patient seen for follow-up, chart review. Patient found sitting in hospital bed , cooperative interview. Patient reports cheering to her current treatment, maintaining good hygiene with daily showers and participating in groups and activities. Patient reports tolerating medications well no adverse drug reactions reported. Patient states that she would like to go back to her living facility and is waiting to be visited by a operations representative for the same. Review of Systems Except as stated in HPI: all other systems reviewed are Neg Mental Status Examination Appearance: Disheveled Consciousness: Alert Orientation: Person, Place Motor Activity: Normal gait Speech: Unremarkable Language: Adequate Fund of Knowledge: Inadequate Attention and Concentration: Adequate Memory: Unremarkable Mood: Appropriate Affect: Appropriate Thought Process & Associations: Tangential (at times) Thought Content: Appropriate, Delusional Hallucination Type: Auditory (denied today) Delusion Type: Paranoid (less so) Suicidal Ideation: No Suicidal Plan: No Suicidal Intention: No Homicidal Ideation: No Homicidal Plan: No Homicidal Intention: No Insight: Poor Judgment: Poor (but adherent to medications) Results Vitals/IOs Vital Signs Date Time Temp Pulse Resp B/P (MAP) Pulse Ox O2 Delivery O2 Flow Rate FiO2 06/14/17 06:24 98.6 75 16 120/69 (86) 95 Assessment & Plan Problem List: (1) Paranoid type schizophrenia, chronic state ICD Codes: F20.0 - Paranoid schizophrenia Status: Acute Assessment & Plan Patient at this time and noted to have improved mood, calm and cooperative staff no longer having verbal outbursts or behavior dyscontrol. Patient noted to have a decrease in bizarre and paranoid delusions and no longer endorsing the same recently. Continue current treatment. Patient received Risperdal Consta 50 mg IM on 06/11/17 and will continue to receive every 2 weeks. Patient awaiting acceptance back to facility. Discharge planning in progress Justification for Cont. Inpt. At risk for further decompensation if at lower level of care Discharge Planning Patient to return back to living facility once accepted back. Parrish Beal MD Jun 14, 2017 16:59
[2017-06-14 17:59] VITALS: BP 102/66; PULSE 84; RESP 18; TEMP 97.5; O2SAT 94
[2017-06-14] MEDS: DIVALPROEX SODIUM E.R. 250 MG TAB PO SCH (21:18)
[2017-06-14] MEDS: traZODone HCL 50 MG TAB PO PRN (21:18)
[2017-06-14] MEDS: PRAVASTATIN SOD 20 MG TAB PO SCH (21:18)
[2017-06-15 05:49] VITALS: BP 101/73; PULSE 103; RESP 16; TEMP 98; O2SAT 97
[2017-06-15] MEDS ORDERED: RISP3TAB2 PO (08:03)
[2017-06-15] MEDS ORDERED: PRAV20TA PO (08:03)
[2017-06-15] MEDS ORDERED: METO25TA3 PO (08:03)
[2017-06-15] MEDS ORDERED: DEPA500T3 PO (08:03)
[2017-06-15] MEDS ORDERED: DIVA250ER PO (08:03)
[2017-06-15] MEDS ORDERED: RISP4TAB2 PO (08:03)
[2017-06-15] MEDS ORDERED: Lactulose Liq PO (08:03)
[2017-06-15] MEDS ORDERED: CETI10 PO (08:03)
[2017-06-15] MEDS ORDERED: TRIAM.1%T TOPICAL (08:03)
[2017-06-15] MEDS ORDERED: OXCA300T PO (08:03)
--- NOTE | 2017-06-15 08:12 | HHI.DS ---
Psychiatry Discharge Summary Inpatient Psychiatric care?: Yes Advance Directive: No Reason Not Provided: pt doesnt have. Mental Health AdvanceDirective: No Health Care Proxy: No Admission Admission Date May 25, 2017 at 20:03 Admission Diagnosis: (1) Paranoid type schizophrenia, chronic state ICD Code: F20.0 - Paranoid schizophrenia Brief History The patient is a 51-year-old woman, single, unemployed, domicile in [facility], well known by this service, history of paranoid schizophrenia , schizoaffective disorder, multiple psychiatric hospitalizations, last hospitalization was in April 2017, she was under the care of Dr. Bruce, documentation was reviewed, no previous suicidal attempts, outpatient care by visiting psychiatrist, she is on Depakote 500 mg a.m. and 750 mg p.m., Seroquel 100 mg, Trileptal 300 mg, trazodone 50 g, he has medical history hypertension and COPD, who was brought to the hospital under Stoddard act because she was found wandering and confused in the streets. On psychiatric evaluation today the patient is found in the recreational area sitting down, she is calm, cooperative , a little bit guarded. Patient says that she doesnt understand what she is here, for the same reason of always. She reports good mood, she denies anhedonia, denies hopelessness, denies helplessness, she denies suicidal and homicidal ideation, she denies visual and auditory hallucinations. She does report paranoia some FBI agents are always looking at meand some tangential speech and loosening of associations. But she is easily redirectable. No agitation, no aggressive behavior observed or reported. She is fully oriented 3, she knows what is depressing of denies states, refuses to cooperate with deeper neurocognitive tests. He denies the use of alcohol and illicit drugs, reports smoking cigarettes. Tobacco Use In Past 30 Days: No Tobacco Past 30 Days Alcohol Use: Never Hospital Course The patient is a 51-year-old woman, single, unemployed, domicile in [facility], well known by this service, history of paranoid schizophrenia , schizoaffective disorder, multiple psychiatric hospitalizations, last hospitalization was in April 2017, she was under the care of Dr. Bruce, documentation was reviewed, no previous suicidal attempts, outpatient care by visiting psychiatrist, she is on Depakote 500 mg a.m. and 750 mg p.m., Seroquel 100 mg, Trileptal 300 mg, trazodone 50 g, he has medical history hypertension and COPD, who was brought to the hospital under Stoddard act because she was found wandering and confused in the streets. Patient was transferred to inpatient psychiatry unit for further evaluation and management. Patient was continued on quetiapine 150 mg by mouth daily/200 mg by mouth at bedtime, continued on oxcarbazepine 300 mg by mouth twice a day, Depakote 500 mg a.m./750 mg at bedtime. Patient had quetiapine increased to 200 mg a.m. 300 mg by mouth at bedtime and during admission had began to refuse adherence to medications. Patient was noted limited response to quetiapine was then switched over to risperidone and titrated to 3 mg a.m. and 4 mg by mouth at bedtime with good response. Patient began to tolerate medication regimen well noted to be in good behavioral control noted to be less intrusive better organized, attending groups and activities on the unit and maintaining personal hygiene. Patient prior to discharge was administered Risperdal Consta 50 mg IM and will require continued administration every 2 weeks. Patient returned to the [facility] and continue on current regimen and agreed to continue treatment at a year to outpatient follow-up for continuity of care. Patient advised, when her call the nearest emergency room in case of emergency. Patient agrees with plan. Results Blood Pressure 101 / 73 Vital Signs Date Time Temp Pulse Resp B/P (MAP) Pulse Ox O2 Delivery O2 Flow Rate FiO2 06/15/17 05:49 98.0 103 16 101/73 (82) 97 Laboratory Results Test 05/26/17 09:23 06/11/17 07:29 Cholesterol Level 147 MG/DL (120-200) HDL Cholesterol 88.6 MG/DL (40.0-60.0) Hemoglobin A1c 5.8 % (4.3-6.0) LDL Cholesterol 44 MG/DL (0-99) Triglycerides Level 71 MG/DL (42-150) Valproic Acid (Depakene) Level 92 MCG/ML (50-100) Summary of Procedures none Pending results at discharge: No Medications # of Antipsychotic meds at D/C: 1 Approp Antipsych med options 1 - Minimum of three failed multiple trials of monotherapy. 2 - Documented plan to taper to monotherapy due to previous use of multiple meds OR cross-taper in progress at D/C. 3 - Documentation of augmentation of Clozapine. 4 - Justification other than those listed in allowable values 1-3, document here : Discharge Discharge Date: Jun 15, 2017 Discharge Diagnosis: (1) Paranoid type schizophrenia, chronic state ICD Code: F20.0 - Paranoid schizophrenia Status: Acute Pt Condition on Discharge: Stable Discharge Disposition: ACLF/[facility] Discharge Instructions Diet Instructions: Heart Healthy Diet Activities you can perform: Regular-No Restrictions Scheduled Appointment: Private Psychiatrist Discharge Time > 30 minutes Mental Status Examination Appearance: Appropriate Consciousness: Alert Orientation: Person, Place Motor Activity: Normal gait Speech: Unremarkable Language: Adequate Fund of Knowledge: Inadequate Attention and Concentration: Adequate Memory: Unremarkable Mood: Appropriate Affect: Appropriate Thought Process & Associations: Tangential (at times) Thought Content: Appropriate, Delusional Hallucination Type: None Delusion Type: Paranoid (less so) Suicidal Ideation: No Suicidal Plan: No Suicidal Intention: No Homicidal Ideation: No Homicidal Plan: No Homicidal Intention: No Insight: Poor Judgment: Poor (but adherent to medications) Discharge/Advance Care Plan Health Problems: (1) Paranoid type schizophrenia, chronic state Goals to promote your health * To prevent worsening of your condition and complications * To maintain your health at the optimal level Directions to meet your goals Take your medications as prescribed Follow your dietary instruction Follow activity as directed Keep your appointments as scheduled Take your immunizations and boosters as scheduled If your symptoms worsen call your PCP, if no PCP go to Urgent Care Center or Emergency Room For 29/03 questions related to your inpatient stay or results of tests pending at discharge, please contact Dr. Parrish Beal at Smoking is Dangerous to Your Health. Avoid second hand smoking Parrish Beal MD Jun 15, 2017 08:12
[2017-06-15] MEDS: METOPROLOL TARTRATE 25 MG TAB PO SCH (08:36)
[2017-06-15] MEDS: TRIAMCINOLONE ACETONIDE 0.1% OINT 15 GM TUBE TOPICAL SCH (09:00)
[2017-06-15] MEDS: BUDESONIDE-FORMOTEROL 80/4.5 MCG INHALER INH SCH (09:00)
[2017-06-15] MEDS: OXcarbazepine 300 MG TAB PO SCH (09:03)
[2017-06-15] MEDS: LACTULOSE SYRUP 20 GM/30 ML CUP PO SCH (09:03)
[2017-06-15] MEDS: DIVALPROEX SODIUM E.R. 500 MG TAB PO SCH (09:04)
[2017-06-15] MEDS: CETIRIZINE HCL 10 MG TAB PO SCH (09:04)
[2017-06-15] MEDS: risperiDONE 1 MG TAB PO SCH (09:08)
== END 2017-06-15 10:30 | DRG 885 ==
LOC: NEPC 12:58 → NEDA 20:03 → H270 20:23 → H260 05-26 12:18
PROVIDERS: ADMIT Student in an Organized Health Care Education/Training Program; ATTEND Student in an Organized Health Care Education/Training Program
DX: F20.0 Paranoid schizophrenia (principal); I10 Essential (primary) hypertension; J44.9 Chronic obstructive pulmonary disease, unspecified; F17.210 Nicotine dependence, cigarettes, uncomplicated; F41.9 Anxiety disorder, unspecified; F32.9 Major depressive disorder, single episode, unspecified
CPT/HCPCS: 80048; 80053; 80061; 80076; 80164; 80307; 82140; 83036; 85025; 93005; 96372; J1200; J2060; J2794

== ENCOUNTER 2017-06-28 17:55 | Inpatient (IN) | payer MEDICARE, MEDICAID, OTHER ==
[~2017-06-28] VITALS: Ht 172.7 cm; Wt 63.6 kg
[~2017-06-28 17:55] MED LIST changes: +Lactulose Liq PO; -QUET1TAB8 PO; +RISP3TAB2 PO; +RISP4TAB2 PO; +SERO200T PO; +TRIAM.1%T TOPICAL
[2017-06-28 19:23] VITALS: BP 146/75; PULSE 99; RESP 18; O2SAT 94
--- NOTE | 2017-06-28 21:15 | PD ---
HPI Chief Complaint: Psychiatric Symptoms Time Seen by Provider: 20:41 Travel History International Travel<30 days: No Contact w/Intl Traveler<30days: No Traveled to known affect area: No History of Present Illness HPI 51-year-old female with history of COPD, schizophrenia, depression, presents to the emergency department under Stoddard act for psychiatric evaluation. Patient denies suicidal or homicidal ideations. Per report, patient was aggressive in her place of residence. She denies this. She states that the people there are mean to her. Denies a current pain. Denies any acute medical needs at this time. No other symptoms to report. PFSH Past Medical History Arthritis: No Asthma: No Autoimmune Disease: No Anxiety: Yes Depression: Yes Heart Rhythm Problems: No Cancer: No Cardiovascular Problems: No High Cholesterol: No Chemotherapy: No Chest Pain: No Congestive Heart Failure: No COPD: Yes Cerebrovascular Accident: No Diabetes: No Diminished Hearing: No Endocrine: No Gastrointestinal Disorders: No GERD: No Genitourinary: No Headaches: No Hiatal Hernia: No Hypertension: Yes Immune Disorder: No Implanted Vascular Access Dvce: No Kidney Stones: No Musculoskeletal: No Neurologic: No Psychiatric: Yes (Hx of treatment for Schizophrenia) Reproductive: No Respiratory: Yes (recent acute respiratory failure) Immunizations Current: No Migraines: No Radiation Therapy: No Renal Failure: No Schizophrenia: Yes Seizures: No Sickle Cell Disease: No Sleep Apnea: No Thyroid Disease: No Ulcer: No Menopausal: Yes : 1 Para: 1 Miscarriage: 0 : 0 Tubal Ligation: Yes Past Surgical History Abdominal Surgery: No AICD: No Arteriovenous Shunt: No Cardiac Surgery: No Genitourinary Surgery: No Gynecologic Surgery: Yes Insulin Pump: No Joint Replacement: No Pacemaker: No Thoracic Surgery: No Other Surgery: Yes Social History Alcohol Use: No Tobacco Use: Yes (quit 5 months ago) Substance Use: No Allergies-Medications (Allergen,Severity, Reaction): Coded Allergies: haloperidol (Unverified Allergy, Unknown, 05/25/17) Per MAR sent by [employer]. Reported Meds & Prescriptions Reported Meds & Active Scripts Active Triamcinolone Topical (Triamcinolone Acetonide) 0.1 % Oint 1 Applic TOPICAL BID 30 Days [Lactulose Liq] 30 ML Syrp 20 Ml PO BID 30 Days Risperidone 4 Mg Tab 4 Mg PO HS Risperidone 3 Mg Tab 3 Mg PO DAILY Oxcarbazepine 300 Mg Tab 300 Mg PO BID 30 Days Depakote ER (Divalproex Sodium) 500 Mg Mila 500 Mg PO BID 30 Days Depakote ER (Divalproex Sodium) 250 Mg Mila 250 Mg PO HS 30 Days Metoprolol Tartrate 25 Mg Tab 12.5 Mg PO BID 30 Days Pravachol (Pravastatin) 20 Mg Tab 20 Mg PO HS 30 Days Cetirizine (Cetirizine HCl) 10 Mg Tab 10 Mg PO DAILY 30 Days Pravachol (Pravastatin) 20 Mg Tab 20 Mg PO HS [Lactulose] 30 ML Syrp 20 Ml PO BID Depakote ER (Divalproex Sodium) 250 Mg Mila 250 Mg PO HS Cetirizine (Cetirizine HCl) 10 Mg Tab 10 Mg PO DAILY Metoprolol Tartrate 25 Mg Tab 12.5 Mg PO 1/2 BID Symbicort Inh (Budesonide/Formoterol Fumarate) 80-4.5 Mcg/Act Aero 1 Puff INH Q12HR Oxcarbazepine 300 Mg Tab 300 Mg PO BID Escitalopram (Escitalopram Oxalate) 20 Mg Tab 20 Mg PO DAILY Depakote ER (Divalproex Sodium) 500 Mg Mila 500 Mg PO BID Reported Seroquel (Quetiapine Fumarate) 200 Mg Tab 200 Mg PO HS Seroquel (Quetiapine Fumarate) 100 Mg Tab 100 Mg PO DAILY Dermazone 0.1 % (Triamcinolone Acetonide-Sil[place]) 1 Mis Mis 1 Applic TOPICAL BID Alendronate (Alendronate Sodium) 70 Mg Tab 70 Mg PO Q7D ON FRIDAYS Review of Systems Except as stated in HPI: all other systems reviewed are Neg Physical Exam Narrative GENERAL: Well-nourished female patient, no acute distress. SKIN: Focused skin assessment warm/dry. Bruising over the right mandible. There is an abrasion inferior to the right eye. HEAD: Atraumatic. Normocephalic. EYES: Pupils equal and round. Disconjugated . No injection or drainage. ENT: No nasal bleeding or discharge. Mucous membranes pink and moist. NECK: Trachea midline. No JVD. CARDIOVASCULAR: Regular rate and rhythm. No murmur appreciated. RESPIRATORY: No accessory muscle use. Clear to auscultation. Breath sounds equal bilaterally. GASTROINTESTINAL: Abdomen soft, non-tender, nondistended. Hepatic and splenic margins not palpable. MUSCULOSKELETAL: No obvious deformities. No clubbing. No cyanosis. No edema. NEUROLOGICAL: Awake and alert. No obvious cranial nerve deficits. Motor grossly within normal limits. Normal speech. Data Data Last Documented VS Vital Signs Date Time Temp Pulse Resp B/P (MAP) Pulse Ox O2 Delivery O2 Flow Rate FiO2 06/28/17 19:23 99 18 146/75 (98) 94 Room Air Orders Orders Psych Screen (06/28/17 19:48) Complete Blood Count With Diff (06/28/17 20:42) Basic Metabolic Panel (Bmp) (06/28/17 20:42) Urinalysis - C+S If Indicated (06/28/17 20:42) Drug Screen, Random Urine (06/28/17 20:42) Alcohol (Ethanol) (06/28/17 20:42) MDM Medical Decision Making Medical Screen Exam Complete: Yes Emergency Medical Condition: Yes Medical Record Reviewed: Yes Differential Diagnosis Mid disorder versus personality disorder versus adjustment reaction disorder Narrative Course 51-year-old female presents to [facility] department for evaluation under Stoddard act. Patient appears without distress. Lab work is ordered for medical clearance. Pending no acute lab abnormality, patient is medically cleared to undergo psychiatric screening for further evaluation and disposition. Mental health screening discussed with the patient. Psychiatric screen ordered. Diagnosis Primary Impression: Paranoid type schizophrenia, chronic state Condition: Stable Tierra Mercer Jun 28, 2017 21:15
[2017-06-28 23:05] LABS: AUTOMATED NEUTROPHIL # 2.4 TH/MM3 (1.8-7.7); BASOPHIL % 0.6 % (0.0-2.0); EOSINOPHIL % 0.9 % (0.0-4.0); HEMATOCRIT 34.5 % (35.0-46.0); HEMOGLOBIN 11.7 GM/DL (11.6-15.3); LYMPH % 32.3 % (9.0-44.0); LYMPHOCYTE # 1.4 TH/MM3 (1.0-4.8); MEAN CELL VOLUME 97.5 FL (80.0-100.0); MEAN CORPUSCULAR HGB CONC 33.9 % (32.0-36.0); MEAN PLATELET VOLUME 9.1 FL (7.0-11.0); MONO % 12.6 % (0.0-8.0); MONOCYTE # 0.6 TH/MM3 (0-0.9); NEUT % 53.6 % (16.0-70.0); PLATELET COUNT 272 TH/MM3 (150-450); RED BLOOD COUNT 3.54 MIL/MM3 (4.00-5.30); RED CELL DISTRIBUTION WIDTH 13.6 % (11.6-17.2); WHITE BLOOD COUNT 4.4 TH/MM3 (4.0-11.0)
[2017-06-28 23:07] VITALS: BP 119/57; PULSE 86; RESP 16
[2017-06-28 23:21] LABS: BICARBONATE 29.8 MEQ/L (21.0-32.0); BLOOD UREA NITROGEN 8 MG/DL (7-18); CHLORIDE 96 MEQ/L (98-107); CREATININE 0.71 MG/DL (0.50-1.00); GLOMERULAR FILTRATION RATE 86 ML/MIN (>89); GLUCOSE,RANDOM 141 MG/DL (74-106); SODIUM (NA) 132 MEQ/L (136-145)
[2017-06-29 01:15] LABS: AMORPHOUS SEDIMENT, URINE RARE; BACTERIA, URINE MANY /hpf; BILIRUBIN, URINE NEG (NEG); BLOOD, URINE TRACE (NEG); GLUCOSE,URINE NEG (NEG); KETONE, URINE NEG (NEG); NITRITE,URINE NEG (NEG); PH, URINE 7.5 (5.0-8.5); SQUAMOUS EPITHELIAL CELL URINE <1 /hpf (0-5); URINE COLOR LIGHT-YELLOW (YELLW/STRAW); URINE LEUKOCYTE ESTERASE SMALL (NEG)
[2017-06-29 02:30] VITALS: BP 118/60; PULSE 74; RESP 16
[2017-06-29 06:22] VITALS: BP 136/81; PULSE 107; RESP 18
[2017-06-29 16:18] VITALS: BP 124/81; PULSE 94; RESP 18; O2SAT 92
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
[2017-06-29 17:04] VITALS: BP 124/81; PULSE 94; RESP 18; O2SAT 92
[2017-06-29] MEDS ORDERED: MAGNESIUM HYDROXIDE SUSP 30 ML CUP PO PRN (17:30)
[2017-06-29] MEDS ORDERED: ALUMINUM/MAGNESIUM/SIMETH 30 ML CUP PO PRN (17:30)
[2017-06-29] MEDS ORDERED: ACETAMINOPHEN 325 MG TAB PO PRN (17:30)
[2017-06-29 18:40] VITALS: BP 125/72; PULSE 97; RESP 18; TEMP 97.8; O2SAT 99
[2017-06-29] MEDS: CEPHALEXIN MONOHYDRATE 500 MG CAP PO SCH (21:00)
[2017-06-29] MEDS: REMOVE OLD NICODERM (NICOTINE) PATCH T-DERMAL SCH (21:00)
[2017-06-30 06:45] VITALS: BP 120/73; PULSE 98; RESP 18; TEMP 98; O2SAT 99
[2017-06-30] MEDS ORDERED: LORazepam 2 MG/ML VIAL IM PRN ×2 (07:00)
[2017-06-30] MEDS ORDERED: LORazepam 1 MG TAB PO PRN (07:00)
[2017-06-30] MEDS ORDERED: diphenhydrAMINE HCL 50 MG CAP PO PRN (07:00)
[2017-06-30] MEDS ORDERED: LORazepam 0.5 MG TAB PO PRN (07:00)
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
[2017-06-30] MEDS ORDERED: RESP: ALBUTEROL 2.5 MG/IPRATROPIUM 0.5 MG NEB (PRN) NEB ×2 (08:00→16:30)
[2017-06-30] MEDS: NICOTINE 21 MG/24 HR PATCH T-DERMAL SCH (09:00)
[2017-06-30] MEDS: BUDESONIDE-FORMOTEROL 80/4.5 MCG INHALER INH SCH ×2 (09:00→21:54)
[2017-06-30] MEDS: CEPHALEXIN MONOHYDRATE 500 MG CAP PO SCH ×2 (09:00→21:54)
[2017-06-30] MEDS: LACTULOSE SYRUP 20 GM/30 ML CUP PO SCH ×2 (09:26→21:54)
[2017-06-30] MEDS: METOPROLOL TARTRATE 25 MG TAB PO SCH ×2 (09:26→21:53)
[2017-06-30] MEDS: risperiDONE 3 MG TAB PO SCH ×2 (09:27→21:53)
[2017-06-30] MEDS: DIVALPROEX SODIUM E.R. 500 MG TAB PO SCH ×2 (09:27→13:00)
[2017-06-30] MEDS: OXcarbazepine 300 MG TAB PO SCH ×2 (09:27→21:53)
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
--- NOTE | 2017-06-30 16:12 | PD.CONS ---
HPI Service [facility] Consult Requested By Psychiatry Reason for Consult Medical management Primary Care Physician Unknown Diagnoses: History of Present Illness Patient is a 51-year-old woman, who is unemployed who lives at [facility] with a history of paranoid schizophrenia, schizoaffective disorder, multiple psychiatric hospitalizations and history of hypertension and COPD. She was brought in as a Stoddard act due to her decompensating for several days was confused and had agitation and tangential thoughts as well as threatening staff and wandering in front of traffic We have been asked to consult regarding medical management Review of Systems Constitutional: DENIES: Diaphoretic episodes, Fatigue, Fever, Weight gain, Weight loss, Chills, Dizziness, Change in appetite Endocrine: DENIES: Abnorml menstrual pattern, Heat/cold intolerance, Polydipsia , Polyuria Eyes: DENIES: Blurred vision, Diplopia, Eye inflammation, Eye pain Ears, nose, mouth, throat: DENIES: Tinnitus, Hearing loss, Vertigo, Nasal discharge Respiratory: COMPLAINS OF: Cough, DENIES: Apneas, Snoring, Wheezing, Hemoptysis , Sputum production Cardiovascular: DENIES: Chest pain, Palpitations, Syncope, Dyspnea on Exertion Gastrointestinal: DENIES: Abdominal pain, Black stools, Bloody stools Genitourinary: DENIES: Abnormal vaginal bleeding, Dysmenorrhea, Dyspareunia Musculoskeletal: DENIES: Joint pain, Muscle aches, Stiffness, Joint Swelling Integumentary: DENIES: Abnormal pigmentation, Pruritus, Rash Hematologic/lymphatic: DENIES: Bruising, Lymphadenopathy Immunologic/allergic: DENIES: Eczema, Urticaria Neurologic: DENIES: Abnormal gait, Headache, Localized weakness, Paresthesias, Seizures Psychiatric: COMPLAINS OF: Anxiety, Confusion, Mood changes, Depression, Agitation, DENIES: Hallucinations, Suicidal Ideation, Homicidal Ideation Past Family Social History Allergies: Coded Allergies: haloperidol (Unverified Allergy, Unknown, 05/25/17) Per MAR sent by [facility]. Past Medical History COPD Tubal ligation Liver disease Schizophrenia Depression Anxiety Tobacco abuse History of respiratory failure Hyperlipidemia Hypertension Past Surgical History Tubal ligation Reported Medications Reported Meds & Active Scripts Active Triamcinolone Topical (Triamcinolone Acetonide) 0.1 % Oint 1 Applic TOPICAL BID 30 Days [Lactulose Liq] 30 ML Syrp 20 Ml PO BID 30 Days Risperidone 4 Mg Tab 4 Mg PO HS Risperidone 3 Mg Tab 3 Mg PO DAILY Oxcarbazepine 300 Mg Tab 300 Mg PO BID 30 Days Depakote ER (Divalproex Sodium) 500 Mg Mila 500 Mg PO BID 30 Days Depakote ER (Divalproex Sodium) 250 Mg Mila 250 Mg PO HS 30 Days Metoprolol Tartrate 25 Mg Tab 12.5 Mg PO BID 30 Days Pravachol (Pravastatin) 20 Mg Tab 20 Mg PO HS 30 Days Cetirizine (Cetirizine HCl) 10 Mg Tab 10 Mg PO DAILY 30 Days Pravachol (Pravastatin) 20 Mg Tab 20 Mg PO HS [Lactulose] 30 ML Syrp 20 Ml PO BID Depakote ER (Divalproex Sodium) 250 Mg Mila 250 Mg PO HS Cetirizine (Cetirizine HCl) 10 Mg Tab 10 Mg PO DAILY Metoprolol Tartrate 25 Mg Tab 12.5 Mg PO 1/2 BID Symbicort Inh (Budesonide/Formoterol Fumarate) 80-4.5 Mcg/Act Aero 1 Puff INH Q12HR Oxcarbazepine 300 Mg Tab 300 Mg PO BID Escitalopram (Escitalopram Oxalate) 20 Mg Tab 20 Mg PO DAILY Depakote ER (Divalproex Sodium) 500 Mg Mila 500 Mg PO BID Reported Seroquel (Quetiapine Fumarate) 200 Mg Tab 200 Mg PO HS Seroquel (Quetiapine Fumarate) 100 Mg Tab 100 Mg PO DAILY Dermazone 0.1 % (Triamcinolone Acetonide-Silico) 1 Mis Mis 1 Applic TOPICAL BID Alendronate (Alendronate Sodium) 70 Mg Tab 70 Mg PO Q7D ON FRIDAYS Active Ordered Medications Current Medications Acetaminophen (Tylenol) 650 mg Q4H PRN PO Pain 1-5 or Temp >101F; Start at 17:30 Magnesium Hydroxide (Milk Of Magnesia Liq) 30 ml DAILY PRN PO CONSTIPATION; Start 06/29/17 at 17:30 Al Hydrox/Mg Hydrox/Simethicone (Mag-Al Plus Susp Liq) 30 ml Q6H PRN PO DYSPEPSIA; Start 06/29/17 at 17:30 Nicotine (Habitrol 21 Mg Patch.24 Hr) 1 patch DAILY T-DERMAL ; Start 06/30/17 at 09:00 Cephalexin Monohydrate (Keflex) 500 mg Q12HR PO Last administered on 09:00; Start 06/29/17 at 21:00; Stop 07/06/17 at 20:59 Miscellaneous Information 1 HS T-DERMAL ; Start 06/29/17 at 21:00 Lorazepam (Ativan) 1 mg Q6H PRN PO MODERATE TO SEVERE ANXIETY; Start 06/30/17 at 07:00 Lorazepam (Ativan Inj) 1 mg Q6H PRN IM MODERATE TO SEVERE ANXIETY; Start 06/30 at 07:00 Lorazepam (Ativan) 0.5 mg Q12H PRN PO MODERATE TO SEVERE ANXIETY; Start at 07:00 Lorazepam (Ativan Inj) 0.5 mg Q12H PRN IM MODERATE TO SEVERE ANXIETY; Start at 07:00 Diphenhydramine HCl (Benadryl) 50 mg HS PRN PO INSOMNIA; Start 06/30/17 at 07: 00 Budesonide/ Formoterol Fumarate (Symbicort 80-4.5 Mcg Inh) 1 puff Q12HR INH ; Start 06/30/17 at 09:00 Cetirizine HCl (ZyrTEC) 10 mg DAILY PO ; Start 06/30/17 at 09:00 Divalproex Sodium (Depakote Er) 250 mg HS PO ; Start 06/30/17 at 21:00 Divalproex Sodium (Depakote Er) 500 mg BID@0900,1300 PO Last administered on 13:00; Start 06/30/17 at 09:00 Metoprolol Tartrate (Lopressor) 12.5 mg BID PO Last administered on 06/30/17 09:26; Start 06/30/17 at 09:00 Oxcarbazepine (Trileptal) 300 mg BID PO Last administered on 06/30/17 09:27; Start 06/30/17 at 09:00 Pravastatin Sodium (Pravachol) 20 mg HS PO ; Start 06/30/17 at 21:00 Triamcinolone Acetonide (Aristocort 0.1% Cream) 1 applic BID TOPICAL ; Start at 09:00 Lactulose (Lactulose Liq) 20 ml BID PO Last administered on 06/30/17 09:26; Start 06/30/17 at 09:00 Risperidone (risperDAL) 3 mg Q12HR PO Last administered on 06/30/17t 09:27; Start 06/30/17 at 09:00 Albuterol/ Ipratropium (Duoneb Neb) 1 ampule Q4HR NEB PRN NEB WHEEZING, DYSPNEA ; Start 06/30/17 at 08:00 Family History Psychiatric problems Tobacco abuse Social History Tobacco abuse quit recently Denies any alcohol or illicit drugs Physical Exam Vital Signs Vital Signs Date Time Temp Pulse Resp B/P (MAP) Pulse Ox O2 Delivery O2 Flow Rate FiO2 06/30/17 06:45 98.0 98 18 120/73 (89) 99 06/29/17 18:40 97.8 97 18 125/72 (89) 99 06/29/17 17:04 94 18 124/81 (95) 92 Room Air 06/29/17 16:18 94 18 124/81 (95) 92 Room Air Physical Exam GENERAL: This is a well-nourished, well-developed patient, in no apparent distress. SKIN: No rashes, ecchymoses or lesions. Cool and dry. HEAD: Atraumatic. Normocephalic. No temporal or scalp tenderness. EYES: Pupils equal round and reactive. Extraocular motions intact. No scleral icterus. No injection or drainage. ENT: Nose without bleeding, purulent drainage or septal hematoma. Throat without erythema, tonsillar hypertrophy or exudate. Uvula midline. Airway patent. NECK: Trachea midline. No JVD or lymphadenopathy. Supple, nontender, no meningeal signs. CARDIOVASCULAR: Regular rate and rhythm without murmurs, gallops, or rubs. S1- S2 no S3 or S4 RESPIRATORY: Clear to auscultation. Breath sounds equal bilaterally. No wheezes , rales, or rhonchi. GASTROINTESTINAL: Abdomen soft, non-tender, nondistended. No hepato-splenomegaly , or palpable masses. No guarding. MUSCULOSKELETAL: Extremities without clubbing, cyanosis, or edema. No joint tenderness, effusion, or edema noted. No calf tenderness. Negative Homans sign bilaterally. NEUROLOGICAL: Awake and alert. Cranial nerves II through XII intact. Motor and sensory grossly within normal limits. Five out of 5 muscle strength in all muscle groups. Normal speech. Insight and judgment is limited When behavior is somewhat appropriate Laboratory Date/Time Source Procedure Growth Status 06/29/17 00:55 Urine Random Urine Urine Culture Pending Received Result Diagram: 06/28/17200006/28/172000 Assessment and Plan Assessment and Plan Psychiatric disorder decompensated COPD/tobacco abuse Recommend smoking cessation recommend DuoNeb's when necessary Mucinex Hypertension home medications Hyperlipidemia statin Seasonal allergies continue on home medications Code Status Full code Discussed Condition With RN and patient Keanu Solomon DO Jun 30, 2017 16:12
[2017-06-30 17:54] VITALS: BP 138/75; PULSE 88; RESP 17; TEMP 97.5; O2SAT 94
[2017-06-30] MEDS: REMOVE OLD NICODERM (NICOTINE) PATCH T-DERMAL SCH (21:00)
[2017-06-30] MEDS: PRAVASTATIN SOD 20 MG TAB PO SCH (21:53)
[2017-06-30] MEDS: DIVALPROEX SODIUM E.R. 250 MG TAB PO SCH (21:53)
[2017-06-30] MEDS: guaiFENesin E.R. 600 MG TAB PO SCH (21:53)
[2017-06-30] MEDS: TRIAMCINOLONE ACETONIDE 0.1% CREAM 15 GM TOPICAL SCH (21:54)
[2017-07-01 05:50] VITALS: BP 107/60; PULSE 75; RESP 15; TEMP 97.6; O2SAT 94
[2017-07-01] MEDS: NICOTINE 21 MG/24 HR PATCH T-DERMAL SCH (09:00)
[2017-07-01] MEDS: BUDESONIDE-FORMOTEROL 80/4.5 MCG INHALER INH SCH ×2 (09:00→22:15)
[2017-07-01] MEDS: CETIRIZINE HCL 10 MG TAB PO SCH ×2 (09:00→09:01)
[2017-07-01] MEDS: risperiDONE 3 MG TAB PO SCH ×2 (09:00→22:15)
[2017-07-01] MEDS: TRIAMCINOLONE ACETONIDE 0.1% CREAM 15 GM TOPICAL SCH ×2 (09:00→22:15)
[2017-07-01] MEDS: OXcarbazepine 300 MG TAB PO SCH ×2 (09:01→22:15)
[2017-07-01] MEDS: CEPHALEXIN MONOHYDRATE 500 MG CAP PO SCH ×2 (09:01→22:14)
[2017-07-01] MEDS: LACTULOSE SYRUP 20 GM/30 ML CUP PO SCH ×2 (09:01→22:14)
[2017-07-01] MEDS: guaiFENesin E.R. 600 MG TAB PO SCH ×2 (09:02→22:15)
[2017-07-01] MEDS: METOPROLOL TARTRATE 25 MG TAB PO SCH ×2 (09:02→22:14)
[2017-07-01] MEDS: DIVALPROEX SODIUM E.R. 500 MG TAB PO SCH ×2 (09:03→12:27)
[2017-07-01 11:17] LABS: BICARBONATE 28.3 MEQ/L (21.0-32.0); BLOOD UREA NITROGEN 17 MG/DL (7-18); CALCIUM 8.8 MG/DL (8.5-10.1); CHLORIDE 96 MEQ/L (98-107); CHOLESTEROL 141 MG/DL (120-200); CHOLESTEROL/ HDL RATIO 1.87 RATIO; CREATININE 0.58 MG/DL (0.50-1.00); GLOMERULAR FILTRATION RATE 109 ML/MIN (>89); GLUCOSE,RANDOM 104 MG/DL (74-106); HDL CHOLESTEROL 75.1 MG/DL (40.0-60.0); LDL CHOLESTEROL 27 MG/DL (0-99); SODIUM (NA) 131 MEQ/L (136-145); TRIGLYCERIDES 193 MG/DL (42-150)
[2017-07-01 11:41] LABS: FREE T4 0.97 NG/DL (0.76-1.46)
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
[2017-07-01 16:36] LABS: HEMOGLOBIN A1C 5.9 % (4.3-6.0)
[2017-07-01 18:33] VITALS: BP 103/71; PULSE 91; RESP 18; TEMP 97.5; O2SAT 95
[2017-07-01] MEDS: REMOVE OLD NICODERM (NICOTINE) PATCH T-DERMAL SCH (21:00)
[2017-07-01] MEDS: DIVALPROEX SODIUM E.R. 250 MG TAB PO SCH (22:14)
[2017-07-01] MEDS: PRAVASTATIN SOD 20 MG TAB PO SCH (22:15)
[2017-07-02 06:42] VITALS: BP 97/53; PULSE 83; RESP 16; O2SAT 94
[2017-07-02] MEDS: NICOTINE 21 MG/24 HR PATCH T-DERMAL SCH (09:00)
[2017-07-02] MEDS: DIVALPROEX SODIUM E.R. 500 MG TAB PO SCH ×2 (09:00→12:36)
[2017-07-02] MEDS: CETIRIZINE HCL 10 MG TAB PO SCH (09:20)
[2017-07-02] MEDS: CEPHALEXIN MONOHYDRATE 500 MG CAP PO SCH (09:20)
[2017-07-02] MEDS: risperiDONE 3 MG TAB PO SCH (09:21)
[2017-07-02] MEDS: OXcarbazepine 300 MG TAB PO SCH (09:21)
[2017-07-02] MEDS: guaiFENesin E.R. 600 MG TAB PO SCH (09:21)
[2017-07-02] MEDS: METOPROLOL TARTRATE 25 MG TAB PO SCH (09:23)
[2017-07-02] MEDS: BUDESONIDE-FORMOTEROL 80/4.5 MCG INHALER INH SCH (09:28)
[2017-07-02] MEDS: TRIAMCINOLONE ACETONIDE 0.1% CREAM 15 GM TOPICAL SCH (09:31)
[2017-07-02] MEDS: LACTULOSE SYRUP 20 GM/30 ML CUP PO SCH (10:41)
[2017-07-02] MEDS ORDERED: [UNRECOGNIZED DRUG - OTHER] IM SCH (12:00)
[2017-07-02] MEDS ORDERED: Lactulose Liq PO (12:04)
[2017-07-02] MEDS ORDERED: METO25TA3 PO (12:04)
[2017-07-02] MEDS ORDERED: OXCA300T PO (12:04)
[2017-07-02] MEDS ORDERED: CETI10 PO (12:04)
[2017-07-02] MEDS ORDERED: DEPA500T3 PO (12:04)
[2017-07-02] MEDS ORDERED: SYMB80AE INH (12:04)
[2017-07-02] MEDS ORDERED: TRIA.1%T TOPICAL (12:04)
[2017-07-02] MEDS ORDERED: guaiFENesin ER PO (12:04)
[2017-07-02] MEDS ORDERED: DIVA250ER PO (12:04)
[2017-07-02] MEDS ORDERED: PRAV20TA PO (12:04)
[2017-07-02] MEDS ORDERED: CEPH500C PO (12:04)
[2017-07-02] MEDS ORDERED: RISP3 PO (12:04)
--- NOTE | 2017-07-02 12:30 | HHI.PR ---
Subjective Remarks Patient is a 51-year-old woman, who is unemployed who lives at [facility], with a history of paranoid schizophrenia, schizoaffective disorder, multiple psychiatric hospitalizations and history of hypertension and COPD. She was brought in as a Stoddard act due to her decompensating for several days was confused and had agitation and tangential thoughts as well as threatening staff and wandering in front of traffic We have been asked to consult regarding medical management 07-02 no new COMPLAINTS WILL SIGN OFF Objective Vitals Vital Signs Date Time Temp Pulse Resp B/P (MAP) Pulse Ox O2 Delivery O2 Flow Rate FiO2 07/02/17 06:42 83 16 97/53 (68) 94 07/01/17 18:33 97.5 91 18 103/71 (82) 95 I/O 07/01/17 07/01/17 07/01/17 07/02/17 07/02/17 07/02/17 07:00 15:00 23:00 07:00 15:00 23:00 Intake Total 600 ml 600 ml 240 ml Balance 600 ml 600 ml 240 ml Intake Oral 600 ml 600 ml 240 ml # Voids 1 1 1 Result Diagram: 06/28/17200007/01/17 0949 Other Results Laboratory Tests Test 07/01/17 09:49 Blood Urea Nitrogen 17 MG/DL Creatinine 0.58 MG/DL Random Glucose 104 MG/DL Calcium Level 8.8 MG/DL Sodium Level 131 MEQ/L Potassium Level 4.8 MEQ/L Chloride Level 96 MEQ/L Carbon Dioxide Level 28.3 MEQ/L Anion Gap 7 MEQ/L Estimat Glomerular Filtration Rate 109 ML/MIN Hemoglobin A1c 5.9 % Triglycerides Level 193 MG/DL Cholesterol Level 141 MG/DL LDL Cholesterol 27 MG/DL HDL Cholesterol 75.1 MG/DL Cholesterol/HDL Ratio 1.87 RATIO 25-Hydroxy Vitamin D Total 26.7 ng/ML Free Thyroxine 0.97 NG/DL Thyroid Stimulating Hormone 3rd Gen 0.761 uIU/ML Carbamazepine (Tegretol) Level LESS THAN 0.5 MCG/ML Objective Remarks GENERAL: This is a well-nourished, well-developed patient, in no apparent distress. SKIN: No rashes, ecchymoses or lesions. Cool and dry. HEAD: Atraumatic. Normocephalic. No temporal or scalp tenderness. EYES: Pupils equal round and reactive. Extraocular motions intact. No scleral icterus. No injection or drainage. ENT: Nose without bleeding, purulent drainage or septal hematoma. Throat without erythema, tonsillar hypertrophy or exudate. Uvula midline. Airway patent. NECK: Trachea midline. No JVD or lymphadenopathy. Supple, nontender, no meningeal signs. CARDIOVASCULAR: Regular rate and rhythm without murmurs, gallops, or rubs. S1- S2 no S3 or S4 RESPIRATORY: Clear to auscultation. Breath sounds equal bilaterally. No wheezes , rales, or rhonchi. GASTROINTESTINAL: Abdomen soft, non-tender, nondistended. No hepato-splenomegaly , or palpable masses. No guarding. MUSCULOSKELETAL: Extremities without clubbing, cyanosis, or edema. No joint tenderness, effusion, or edema noted. No calf tenderness. Negative Homans sign bilaterally. NEUROLOGICAL: Awake and alert. Cranial nerves II through XII intact. Motor and sensory grossly within normal limits. Five out of 5 muscle strength in all muscle groups. Normal speech. Insight and judgment is limited When behavior is somewhat INappropriate Medications and IVs Current Medications Acetaminophen (Tylenol) 650 mg Q4H PRN PO Pain 1-5 or Temp >101F; Start at 17:30 Magnesium Hydroxide (Milk Of Magnesia Liq) 30 ml DAILY PRN PO CONSTIPATION; Start 06/29/17 at 17:30 Al Hydrox/Mg Hydrox/Simethicone (Mag-Al Plus Susp Liq) 30 ml Q6H PRN PO DYSPEPSIA; Start 06/29/17 at 17:30 Nicotine (Habitrol 21 Mg Patch.24 Hr) 1 patch DAILY T-DERMAL ; Start 06/30/17 at 09:00 Cephalexin Monohydrate (Keflex) 500 mg Q12HR PO Last administered on t 09:20; Start 06/29/17 at 21:00; Stop 07/06/17 at 20:59 Miscellaneous Information 1 HS T-DERMAL ; Start 06/29/17 at 21:00 Lorazepam (Ativan) 1 mg Q6H PRN PO MODERATE TO SEVERE ANXIETY; Start 06/30/17 at 07:00 Lorazepam (Ativan Inj) 1 mg Q6H PRN IM MODERATE TO SEVERE ANXIETY; Start 06/30 at 07:00 Lorazepam (Ativan) 0.5 mg Q12H PRN PO MODERATE TO SEVERE ANXIETY; Start at 07:00 Lorazepam (Ativan Inj) 0.5 mg Q12H PRN IM MODERATE TO SEVERE ANXIETY; Start at 07:00 Diphenhydramine HCl (Benadryl) 50 mg HS PRN PO INSOMNIA; Start 06/30/17 at 07: 00 Budesonide/ Formoterol Fumarate (Symbicort 80-4.5 Mcg Inh) 1 puff Q12HR INH Last administered on 07/02/17 09:28; Start 06/30/17 at 09:00 Cetirizine HCl (ZyrTEC) 10 mg DAILY PO Last administered on 07/02/17 09:20; Start 06/30/17 at 09:00 Divalproex Sodium (Depakote Er) 250 mg HS PO Last administered on 07/01/17 22 :14; Start 06/30/17 at 21:00 Divalproex Sodium (Depakote Er) 500 mg BID@0900,1300 PO Last administered on 09:00; Start 06/30/17 at 09:00 Metoprolol Tartrate (Lopressor) 12.5 mg BID PO Last administered on 07/02/17 09:23; Start 06/30/17 at 09:00 Oxcarbazepine (Trileptal) 300 mg BID PO Last administered on 07/02/17 09:21; Start 06/30/17 at 09:00 Pravastatin Sodium (Pravachol) 20 mg HS PO Last administered on 07/01/17 22: 15; Start 06/30/17 at 21:00 Triamcinolone Acetonide (Aristocort 0.1% Cream) 1 applic BID TOPICAL Last administered on 07/02/17 09:31; Start 06/30/17 at 09:00 Lactulose (Lactulose Liq) 20 ml BID PO Last administered on 07/02/17 10:41; Start 06/30/17 at 09:00 Risperidone (risperDAL) 3 mg Q12HR PO Last administered on 07/02/17 09:21; Start 06/30/17 at 09:00 Albuterol/ Ipratropium (Duoneb Neb) 1 ampule Q4HR NEB PRN NEB WHEEZING, DYSPNEA ; Start 06/30/17 at 08:00; Stop 06/30/17 at 16:19; Status DC Albuterol/ Ipratropium (Duoneb Neb) 1 ampule Q4HR NEB PRN NEB sob; Start 06/30 at 16:30 Guaifenesin (Mucinex Er) 600 mg BID PO Last administered on 07/02/17t 09:21; Start 06/30/17 at 21:00 Risperidone (RisperDAL CONSTA INJ) 50 mg Q14D IM ; Start 07/02/17 at 12:00 A/P Assessment and Plan Psychiatric disorder decompensated COPD/tobacco abuse Recommend smoking cessation recommend DuoNeb's when necessary Mucinex Hypertension home medications Hyperlipidemia statin Seasonal allergies continue on home medications Discharge Planning WHEN CLEARED BY PSYCHIATRY WILL SIGN OFF CALL IF NEEDED Keanu Solomon DO Jul 02, 2017 12:30
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
== END 2017-07-02 15:40 | DRG 885 ==
LOC: NEPJ 17:55 → NEDA 06-29 17:17 → H250 06-29 18:36
PROVIDERS: ADMIT Student in an Organized Health Care Education/Training Program; ATTEND Student in an Organized Health Care Education/Training Program
DX: F20.0 Paranoid schizophrenia (principal); I10 Essential (primary) hypertension; J44.9 Chronic obstructive pulmonary disease, unspecified; E78.5 Hyperlipidemia, unspecified; S00.83XA Contusion of other part of head, initial encounter; W51.XXXA Accidental striking against or bumped into by another person, initial encounter; Y92.89 Other specified places as the place of occurrence of the external cause; Z87.891 Personal history of nicotine dependence
CPT/HCPCS: 80048; 80061; 80156; 80164; 80307; 81001; 82306; 83036; 84439; 84443; 85025; 87086; J2794

== ENCOUNTER 2017-08-26 11:13 | Inpatient (IN) | payer MEDICARE, MEDICAID ==
[~2017-08-26] VITALS: Ht 172.7 cm; Wt 60.6 kg
[2017-08-26] VITALS (11 sets, daily range): BP systolic 100–142; BP diastolic 62–84; PULSE 77–110; RESP 18–24; TEMP 98.3; O2SAT 82–97
[~2017-08-26 11:13] MED LIST changes: +CEPH500C PO; +RISP3 PO; +TRIA.1%T TOPICAL; -TRIA1MIS TOPICAL; +guaiFENesin ER PO
[2017-08-26] MEDS ORDERED: predniSONE 20 MG TAB PO ONE (11:45)
[2017-08-26] MEDS: RESP: ALBUTEROL 2.5 MG/IPRATROPIUM 0.5 MG NEB (SCH) INH ×3 (11:45→12:15)
--- NOTE | 2017-08-26 11:47 | PD ---
HPI Chief Complaint: Psychiatric Symptoms Time Seen by Provider: 11:32 Travel History International Travel<30 days: No Contact w/Intl Traveler<30days: No Traveled to known affect area: No History of Present Illness HPI This is a 51-year-old female who presents to the emergency department with a history of schizophrenia and severe COPD having requested from her halfway that she come because she thought she was having a schizophrenic break. The halfway says that every time she says that they don't take her she gets very agitated with them. Her symptoms have been going on since this morning, worse severe, and she was reporting hallucinations. She currently she says the symptoms have resolved completely. She says she wants to be hospitalized because she was hopeful to go to temple for [employer], and her halfway doesn' t have a temple only [employer] does. Otherwise she has no complaints. PFSH Past Medical History Arthritis: No Asthma: No Autoimmune Disease: No Anxiety: Yes Depression: Yes Heart Rhythm Problems: No Cancer: No Cardiovascular Problems: No High Cholesterol: No Chemotherapy: No Chest Pain: No Congestive Heart Failure: No COPD: Yes Cerebrovascular Accident: No Diabetes: No Diminished Hearing: No Endocrine: No Gastrointestinal Disorders: No GERD: No Genitourinary: No Headaches: No Hiatal Hernia: No Hypertension: Yes Immune Disorder: No Implanted Vascular Access Dvce: No Kidney Stones: No Musculoskeletal: No Neurologic: No Psychiatric: Yes (Hx of treatment for Schizophrenia) Reproductive: No Respiratory: Yes (recent acute respiratory failure,COPD) Immunizations Current: No Migraines: No Radiation Therapy: No Renal Failure: No Schizophrenia: Yes Seizures: No Sickle Cell Disease: No Sleep Apnea: No Thyroid Disease: No Ulcer: No ?: Not Menopausal: Yes : 1 Para: 1 Miscarriage: 0 : 0 Tubal Ligation: Yes Past Surgical History Abdominal Surgery: No AICD: No Arteriovenous Shunt: No Cardiac Surgery: No Genitourinary Surgery: No Gynecologic Surgery: Yes Insulin Pump: No Joint Replacement: No Pacemaker: No Thoracic Surgery: No Other Surgery: Yes Social History Alcohol Use: No Tobacco Use: Yes Substance Use: No Allergies-Medications (Allergen,Severity, Reaction): Coded Allergies: haloperidol (Unverified Allergy, Unknown, 05/25/17) Per MAR sent by [facility]. Reported Meds & Prescriptions Reported Meds & Active Scripts Active [guaiFENesin ER] 600 MG Tabcr 600 Mg PO BID 15 Days Depakote ER (Divalproex Sodium) 500 Mg Mila 500 Mg PO BID@0900,1300 30 Days Cetirizine (Cetirizine HCl) 10 Mg Tab 10 Mg PO DAILY 30 Days Triamcinolone Topical (Triamcinolone Acetonide) 0.1 % Oint 1 Applic TOPICAL BID 30 Days [Lactulose] 30 ML Syrp 20 Ml PO BID Symbicort Inh (Budesonide/Formoterol Fumarate) 80-4.5 Mcg/Act Aero 1 Puff INH Q12HR Oxcarbazepine 300 Mg Tab 300 Mg PO BID Depakote ER (Divalproex Sodium) 500 Mg Mila 500 Mg PO BID Reported Sodium Chloride 1 Gram Tab 1 Gm PO DAILY Risperdal Consta Inj (Risperidone) 50 Mg/2 Ml Inj 50 Mg IM Q14D Seroquel (Quetiapine Fumarate) 100 Mg Tab 100 Mg PO BID Seroquel (Quetiapine Fumarate) 200 Mg Tab 200 Mg PO HS Metoprolol Tartrate 25 Mg Tab 12.5 Mg PO DAILY Divalproex ER (Divalproex Sodium) 250 Mg Mila 125 Mg PO DAILY Atorvastatin (Atorvastatin Calcium) 10 Mg Tab 10 Mg PO HS Aspirin EC (Aspirin) 81 Mg Tabdr 81 Mg PO DAILY Alendronate (Alendronate Sodium) 70 Mg Tab 70 Mg PO Q7D ON FRIDAYS Review of Systems ROS Limitations: Poor Historian Physical Exam Narrative GENERAL:Well appearing, no acute distress SKIN: Focused skin assessment warm and dry. HEAD: Atraumatic. Normocephalic. EYES: Pupils equal and round. No injection or drainage. ENT: Moist mucous membranes NECK: Trachea midline. CARDIOVASCULAR: Regular rate and rhythm. No murmur appreciated. RESPIRATORY: Poor air movement, diffuse wheezing GASTROINTESTINAL: Abdomen soft, non-tender, nondistended. MUSCULOSKELETAL: No obvious deformities. NEUROLOGICAL: Awake and alert. No obvious cranial nerve deficits. Moving all extremities. PSYCHIATRIC: Poor eye contact, somewhat irritable, no acute psychosis, able to answer questions appropriately, denies hallucinations Data Data Last Documented VS Vital Signs Date Time Temp Pulse Resp B/P (MAP) Pulse Ox O2 Delivery O2 Flow Rate FiO2 08/26/17 12:37 77 20 100/63 (75) 96 Aerosol Mask 08/26/17 11:16 98.3 Orders Orders Prednisone (Deltasone) (08/26/17 11:45) Albuterol-Ipratropium Neb (Duoneb Neb) (08/26/17 11:45) MDM Medical Decision Making Medical Screen Exam Complete: Yes Emergency Medical Condition: Yes Interpretation(s) Afebrile, hypoxia on room air Differential Diagnosis COPD exacerbation, pneumonia, schizophrenia Narrative Course This is a 51-year-old female who presents to the emergency department requesting to be admitted to the hospital because she wants to go to temple tomorrow at [place]. She is not acutely psychotic and she is denying any hallucinations. She's not been aggressive or agitated towards staff. She was hypoxic on arrival. She has a history chronic COPD and has seen her multiple times in the setting of acute exacerbations. She appears to be at her baseline today. I gave her some rhonchi dilator treatments and will discharge her on prednisone. I think she is safe to return to her halfway. Diagnosis Primary Impression: Schizophrenia Qualified Codes: F20.3 - Undifferentiated schizophrenia Additional Impression: COPD with acute exacerbation Patient Instructions: General Instructions Additional Instructions: If you develop severe shortness of breath, chest pain, or difficulty breathing return to the emergency department. Use albuterol every 4 hours for the next 2 days. Then use as needed for wheezing. Complete your course of steroids. Follow up with your primary care physician in 2-3 days if your symptoms have not improved. Med/Other Pt SpecificInfo: Prescription(s) given Scripts Prednisone (Prednisone) 20 Mg Tab 40 MG PO DAILY, #8 TAB 0 Refills Take 40 mg (2 tablets) daily for 5 days Prov: Muriel Richard MD 08/26/17 Disposition: 01 DISCHARGE HOME Condition: Stable Muriel Richard MD Aug 26, 2017 11:47
[2017-08-26] MEDS ORDERED: RISP50P IM (12:00)
[2017-08-26] MEDS ORDERED: SERO100T PO (12:00)
[2017-08-26] MEDS ORDERED: DIVA250T3 PO (12:00)
[2017-08-26] MEDS ORDERED: ASPI81TA23 PO (12:00)
[2017-08-26] MEDS ORDERED: SERO200T PO (12:00)
[2017-08-26] MEDS ORDERED: METO25TA3 PO (12:00)
[2017-08-26] MEDS ORDERED: ATOR10TA15 PO (12:00)
[2017-08-26] MEDS ORDERED: SODI1TAB PO (12:42)
[2017-08-26] MEDS ORDERED: PRED20 PO (12:59)
[2017-08-26 14:06] LABS: AUTOMATED NEUTROPHIL # 2.6 TH/MM3 (1.8-7.7); BASOPHIL % 0.6 % (0.0-2.0); EOSINOPHIL % 0.9 % (0.0-4.0); HEMATOCRIT 37.8 % (35.0-46.0); HEMOGLOBIN 12.5 GM/DL (11.6-15.3); LYMPH % 20.7 % (9.0-44.0); LYMPHOCYTE # 0.8 TH/MM3 (1.0-4.8); MEAN CELL VOLUME 97.9 FL (80.0-100.0); MEAN CORPUSCULAR HEMOGLOBIN 32.3 PG (27.0-34.0); MEAN PLATELET VOLUME 9.4 FL (7.0-11.0); MONO % 8.1 % (0.0-8.0); MONOCYTE # 0.3 TH/MM3 (0-0.9); NEUT % 69.7 % (16.0-70.0); PLATELET COUNT 190 TH/MM3 (150-450); RED BLOOD COUNT 3.86 MIL/MM3 (4.00-5.30); RED CELL DISTRIBUTION WIDTH 14.4 % (11.6-17.2); WHITE BLOOD COUNT 3.7 TH/MM3 (4.0-11.0)
--- NOTE | 2017-08-26 14:07 | RADRPT ---
EXAM DATE/TIME: 08/26/2017 13:50 [facility] COMPARISON: No previous studies available for comparison. INDICATIONS : Short of breath. MEDICAL HISTORY : Unobtainable SURGICAL HISTORY : Unobtainable ENCOUNTER: Initial ACUITY: 1 day PAIN SCORE: 0/10 LOCATION: Bilateral chest FINDINGS: A single view of the chest demonstrates the lungs to be symmetrically aerated without evidence of mas s, infiltrate or effusion except for subtle indistinctness of the right hemidiaphragm may indicate a small right lower lobe pneumonia. The cardiomediastinal contours are unremarkable. Osseous structur es are intact. CONCLUSION: Normal examination except for subtle indistinctness of the right hemidiaphragm may indicate a small r ight lower lobe pneumonia. Irving Can MD on August 26, 2017 at 14:04 Board Certified Radiologist. This report was verified electronically.
[2017-08-26 14:21] LABS: ALT (GPT) 22 U/L (10-53); AST (GOT) 21 U/L (15-37); BICARBONATE 32.2 MEQ/L (21.0-32.0); BLOOD UREA NITROGEN 12 MG/DL (7-18); CHLORIDE 95 MEQ/L (98-107); CREATININE 0.44 MG/DL (0.50-1.00); GLOMERULAR FILTRATION RATE 150 ML/MIN (>89); GLUCOSE,RANDOM 83 MG/DL (74-106); SODIUM (NA) 132 MEQ/L (136-145)
[2017-08-26 14:23] LABS: ALKALINE PHOSPHATASE 75 U/L (45-117); TOTAL BILIRUBIN ADULT 0.1 MG/DL (0.2-1.0)
[2017-08-26] MEDS ORDERED: AZITHROMYCIN 250 MG TAB PO ONE (17:00)
[2017-08-26] MEDS ORDERED: SODIUM CHLORIDE 0.9% FLUSH 10 ML FLUSH IV FLUSH PRN (17:15)
[2017-08-26] MEDS ORDERED: NALOXONE HCL 0.4 MG/ML AMP IV PUSH PRN (17:15)
--- NOTE | 2017-08-26 18:53 | HHI.HP ---
[facility] Physician Unknown Admission Diagnosis hypoxia, copd Diagnoses: Travel History International Travel<30 Days: No Contact w/Intl Traveler <30 Da: No Traveled to Known Affected Are: No History of Present Illness History from the ER physician communication, and review of medical records, and nursing staff. Patient is extremely poor historian. She is mostly moaning. She is also telling me not to ask her questions. According to the nurse who received the patient from [facility], this is her baseline. The staff members who brought her from [facility] reported to ER nurse that patient was brought in for psychiatric evaluation for her baseline schizophrenia exacerbation. They also reported that the way patient is mostly sleeping and not answering questions and somewhat agitated his her baseline. She is not able to give history. While in emergency room, patient was noted to be quite hypoxic on room air. It was noted that patient's oxygen down to the 80s while on room air. She was therefore placed on 4 L nasal cannula. ABGs also revealed chronic CO2 retention with hypoxia. Patient has had prior history of intubation for her COPD twice at our hospital. Patient is also noted to be coughing. Chest x-ray reveals possible right lower lobe pneumonia. Personally reviewed. Patient was therefore referred for medical admission On review of medical records from the senior living, it seems that patient was started on Seroquel at the nursing facility. Review of Systems ROS Limitations: Psychotic, Poor Historian Not able to obtain review of system at all. Past Family Social History Past Medical History Per EMR: Anxiety Schizophrenia COPD Tobacco abuse Migraines Recently admitted for hyponatremia Previous admissions for respiratory failure, has been intubated Anemia Seizure disorder? Past Surgical History Per EMR: Right cataract with previous surgery Allergies: Coded Allergies: haloperidol (Unverified Allergy, Unknown, 05/25/17) Per MAR sent by [facility]. Family History Unknown. Social History Patient's live at [facility]. She has multiple psychiatric hospitalizations at our facility. As per EMR: Patient was smoking a pack a day for many years. Quit sometime in however 2017. No alcohol abuse. No substance abuse. She has one son. No family living in the area. Physical Exam Vital Signs Vital Signs Date Time Temp Pulse Resp B/P (MAP) Pulse Ox O2 Delivery O2 Flow Rate FiO2 08/26/17 17:19 80 20 108/68 (81) 92 Nasal Cannula 4.00 08/26/17 17:10 96 Nasal Cannula 2.00 08/26/17 15:52 91 18 111/62 (78) 97 Nasal Cannula 4.00 08/26/17 14:50 92 Nasal Cannula 4.00 08/26/17 14:40 79 20 142/84 (103) 90 Nasal Cannula 2.00 08/26/17 13:29 80 20 104/69 (81) 82 Room Air 08/26/17 12:37 77 20 100/63 (75) 96 Aerosol Mask 08/26/17 11:36 88 20 89 Room Air 08/26/17 11:16 98.3 94 24 118/69 (85) 90 Room Air Physical Exam GENERAL: This is a thin lady, drooling. Eyes are closed. Responds to verbal stimuli but mostly screaming and moaning. Asking to be left alone. She however does allow me to examine her briefly SKIN: No rashes, ecchymoses or lesions. Cool and dry. HEAD: Atraumatic. Normocephalic. No temporal or scalp tenderness. EYES: Refused to open her eyes. ENT: Nose without bleeding, purulent drainage or septal hematoma. Airway patent. NECK: Trachea midline. No JVD Supple, nontender, no meningeal signs. CARDIOVASCULAR: Regular rate and rhythm without murmurs, gallops, or rubs. RESPIRATORY: Clear to auscultation. No wheezes, rales, or rhonchi. GASTROINTESTINAL: Abdomen soft, non-tender, nondistended.. No guarding. MUSCULOSKELETAL: Extremities without clubbing, cyanosis, or edema. No calf tenderness. NEUROLOGICAL: Sleeping mostly. Moving all 4 extremities. Normal speech. No gross focal deficits. Laboratory Laboratory Tests Test 08/26/17 13:46 08/26/17 14:26 08/26/17 15:20 White Blood Count 3.7 Red Blood Count 3.86 Hemoglobin 12.5 Hematocrit 37.8 Mean Corpuscular Volume 97.9 Mean Corpuscular Hemoglobin 32.3 Mean Corpuscular Hemoglobin Concent 33.0 Red Cell Distribution Width 14.4 Platelet Count 190 Mean Platelet Volume 9.4 Neutrophils (%) (Auto) 69.7 Lymphocytes (%) (Auto) 20.7 Monocytes (%) (Auto) 8.1 Eosinophils (%) (Auto) 0.9 Basophils (%) (Auto) 0.6 Neutrophils # (Auto) 2.6 Lymphocytes # (Auto) 0.8 Monocytes # (Auto) 0.3 Eosinophils # (Auto) 0.0 Basophils # (Auto) 0.0 CBC Comment DIFF FINAL Differential Comment Blood Urea Nitrogen 12 Creatinine 0.44 Random Glucose 83 Total Protein 6.0 Albumin 3.0 Calcium Level 8.0 Alkaline Phosphatase 75 Aspartate Amino Transf (AST/SGOT) 21 Alanine Aminotransferase (ALT/SGPT) 22 Total Bilirubin 0.1 Sodium Level 132 Potassium Level 4.4 Chloride Level 95 Carbon Dioxide Level 32.2 Anion Gap 5 Estimat Glomerular Filtration Rate 150 Blood Gas Puncture Site LT RADIAL LT RADIAL Blood Gas Patient Temperature 98.6 98.6 Blood Gas HCO3 32 33 Blood Gas Base Excess 6.8 7.0 Blood Gas Oxygen Saturation 79 84 Arterial Blood pH 7.34 7.33 Arterial Blood Partial Pressure CO2 61 64 Arterial Blood Partial Pressure O2 51 62 Arterial Blood Oxygen Content 13.6 15.1 Arterial Blood Carboxyhemoglobin 7.1 5.7 Arterial Blood Methemoglobin 0.5 0.6 Blood Gas Hemoglobin 12.2 12.7 Blood Gas Inspired Oxygen 21 Oxygen Delivery Device NASAL CANNULA Blood Gas Liter Flow 2 Result Diagram: 08/26/17 1346 08/26/17 1346 Imaging Last 48 hours Impressions Chest X-Ray 08/26/17 0000 Signed Impressions: Service Date/Time: August 13:50 - CONCLUSION: Normal examination except for subtle indistinctness of the right hemidiaphragm may indicate a small right lower lobe pneumonia. Irving Can MD Caprini VTE Risk Assessment Caprini VTE Risk Assessment: Mod/High Risk (score >= 2) Caprini Risk Assessment Model Point Value = 1 Point Value = 2 Point Value = 3 Point Value = 5 Age 41-60 Minor surgery BMI > 25 kg/m2 Swollen legs Varicose veins or History of unexplained or recurrent spontaneous Oral contraceptives or hormone replacement Sepsis (< 1 month) Serious lung disease, including pneumonia (< 1 month) Abnormal pulmonary function Acute myocardial infarction Congestive heart failure (< 1 month) History of inflammatory bowel disease Medical patient at bed rest Age 61-74 Arthroscopic surgery Major open surgery (> 45 min) Laparoscopic surgery (> 45 min) Malignancy Confined to bed (> 72 hours) Immobilizing plaster cast Central venous access Age >= 75 History of VTE Family history of VTE Factor V Leiden Prothrombin [id number] Lupus anticoagulant Anticardiolipin antibodies Elevated serum homocysteine Heparin-induced thrombocytopenia Other congenital or acquired thrombophilia Stroke (< 1 month) Elective arthroplasty Hip, pelvis, or leg fracture Acute spinal cord injury (< 1 month) Prophylaxis Regimen Total Risk Factor Score Risk Level Prophylaxis Regimen 0-1 Low Early ambulation 2 Moderate Order ONE of the following: *Sequential Compression Device (SCD) *Heparin 5000 units SQ BID 3-4 Higher Order ONE of the following medications: *Heparin 5000 units SQ TID *Enoxaparin/Lovenox 40 mg SQ daily (WT < 150 kg, CrCl > 30 mL/min) *Enoxaparin/Lovenox 30 mg SQ daily (WT < 150 kg, CrCl > 10-29 mL/min) *Enoxaparin/Lovenox 30 mg SQ BID (WT < 150 kg, CrCl > 30 mL/min) AND/OR *Sequential Compression Device (SCD) 5 or more Highest Order ONE of the following medications: *Heparin 5000 units SQ TID (Preferred with Epidurals) *Enoxaparin/Lovenox 40 mg SQ daily (WT < 150 kg, CrCl > 30 mL/min) *Enoxaparin/Lovenox 30 mg SQ daily (WT < 150 kg, CrCl > 10-29 mL/min) *Enoxaparin/Lovenox 30 mg SQ BID (WT < 150 kg, CrCl > 30 mL/min) AND *Sequential Compression Device (SCD) Assessment and Plan Assessment and Plan Impression: Hypoxic respiratory failure Chronic CO2 retention. Compensated ABG. COPD exacerbation Right lower lobe pneumonia Decompensation of schizophrenia. Likely secondary to medications adjustments. Her senior living records, it is noted that her Seroquel was discontinued this month. Comorbid conditions: Anxiety Schizophrenia COPD Tobacco abuse Migraines Recently admitted for hyponatremia Previous admissions for respiratory failure, has been intubated Anemia Seizure disorder? Plan: Nebulizers scheduled and when necessary. Oxygen supplementation. Orders of been written not to increase oxygen without the doctor's order as patient is a chronic CO2 retainer. Levofloxacin 750 mg IV every 24 hours. Sitter at the bedside. Psychiatric evaluation. The patient's respiratory status improves, patient is a good candidate to be transferred to psychiatry. Reviewed her medications from [facility]. Resumed most of her medications. DVT prophylaxis with Lovenox. Discussed Condition With patient, her nurse, ER Physician Certification 2 Midnight Certification Type: Admission for Inpatient Services Order for Inpatient Services The services are ordered in accordance with Medicare regulations or non- Medicare payer requirements, as applicable. In the case of services not specified as inpatient-only, they are appropriately provided as inpatient services in accordance with the 2-midnight benchmark. Estimated LOS (days): 2 days is the estimated time the patient will need to remain in the hospital, assuming treatment plan goals are met and no additional complications. Post-Hospital Plan: Not yet determined Ladarius Clinton MD Aug 26, 2017 18:53
[2017-08-26] MEDS ORDERED: RESP: ALBUTEROL 2.5 MG/IPRATROPIUM 0.5 MG NEB (PRN) NEB (19:00)
[2017-08-26] MEDS: LEVOFLOXACIN 750 MG PREMIX INJ 150 ML IV SCH ×2 (21:00→23:55)
[2017-08-26] MEDS: BUDESONIDE-FORMOTEROL 80/4.5 MCG INHALER INH SCH (21:14)
[2017-08-26] MEDS: OXcarbazepine 300 MG TAB PO SCH (21:14)
[2017-08-26] MEDS: DIVALPROEX SODIUM E.R. 500 MG TAB PO SCH (21:15)
[2017-08-26] MEDS: ATORVASTATIN 10 MG TAB PO SCH (21:15)
[2017-08-26] MEDS: LACTULOSE SYRUP 20 GM/30 ML CUP PO SCH (21:15)
[2017-08-26] MEDS: SODIUM CHLORIDE 0.9% FLUSH 10 ML FLUSH IV FLUSH SCH (21:17)
[2017-08-26] MEDS: RESP: ALBUTEROL 2.5 MG/IPRATROPIUM 0.5 MG NEB (SCH) NEB (22:00)
[2017-08-27] VITALS (7 sets, daily range): BP systolic 114–139; BP diastolic 75–95; PULSE 78–108; RESP 18–22; TEMP 95.5–98.4; O2SAT 88–96
[2017-08-27] MEDS: RESP: ALBUTEROL 2.5 MG/IPRATROPIUM 0.5 MG NEB (SCH) NEB ×4 (04:15→21:09)
[2017-08-27] MEDS: LEVOFLOXACIN 750 MG TAB PO SCH (06:08)
[2017-08-27] MEDS: SODIUM CHLORIDE 0.9% FLUSH 10 ML FLUSH IV FLUSH SCH ×2 (09:00→21:00)
[2017-08-27] MEDS ORDERED: DIVALPROEX SODIUM E.R. 250 MG TAB PO SCH (09:00)
[2017-08-27] MEDS: BUDESONIDE-FORMOTEROL 80/4.5 MCG INHALER INH SCH ×2 (09:25→23:22)
[2017-08-27] MEDS: METOPROLOL TARTRATE 25 MG TAB PO SCH (09:28)
[2017-08-27] MEDS: OXcarbazepine 300 MG TAB PO SCH ×2 (09:29→23:23)
[2017-08-27] MEDS: CETIRIZINE HCL 10 MG TAB PO SCH (09:29)
[2017-08-27] MEDS: ASPIRIN EC 81 MG TABEC PO SCH (09:30)
--- NOTE | 2017-08-27 09:32 | PD.PSY.CON ---
Provisional Diagnosis Admission Date Aug 26, 2017 at 17:05 [place]. Schizophrenia chronic paranoid type f 20.0, delirium due to another medical condition f 05 History of Present Illness Service Psychiatry Consult Requested By Attending Mika Reason for Consult Assessment assessment Primary Care Physician Unknown HPI Patient is a 51 white female well-known to us multiple prior contacts has had multiple hospitalizations for chronic paranoid schizophrenia. She also has significant COPD. It appears she was at her alf and became somewhat out of control for a more psychotic type behaviors. However on admission to the ED she was noted to be hypoxic and has pneumonia. Patient seen by me in the medical floor with RN present throughout session patient did recognize me. She was somewhat loud and irritable demanding somewhat hyperreligious in her attitude. Talking about wanting to go to congregational. However with past admission she has become somewhat institutionalized. She does denies suicidality homicidality. She does not appear to be responding to internal stimuli at this time. However on review of her medications patient has been on Risperdal Consta. And also on oral Respinol. We'll restart the Respinol orally at 3 mg twice a day the first dose now. I would suggest we have our manager pediatric come up and speak with her. I think this would assuage the pentecostal part of her wanting to go to congregational. Suggest continued vigorous treatment of her COPD and pneumonia. With the intent for her to continue her oral Respinol and be returned to the alf where she states she is willing to go. Thanks for consult will continue to follow-up Review of Systems ROS Limitations: Altered Mental Status Constitutional: DENIES: Diaphoretic episodes, Fatigue, Fever, Weight gain, Weight loss, Chills, Dizziness, Change in appetite, Night Sweats Endocrine: DENIES: Abnorml menstrual pattern, Heat/cold intolerance, Polydipsia , Polyuria, Polyphagia Eyes: DENIES: Blurred vision, Diplopia, Eye inflammation, Eye pain, Vision loss , Photosensitivity, Double Vision Ears, nose, mouth, throat: DENIES: Tinnitus, Hearing loss, Vertigo, Nasal discharge, Oral lesions, Throat pain, Hoarseness, Ear Pain, Running Nose, Epistaxis, Sinus Pain, Toothache, Odynophagia Respiratory: COMPLAINS OF: Shortness of breath Cardiovascular: DENIES: Chest pain, Palpitations, Syncope, Dyspnea on Exertion , PND, Lower Extremity Edema, Orthopnea, Claudication Gastrointestinal: DENIES: Abdominal pain, Black stools, Bloody stools, Constipation, Diarrhea, Nausea, Vomiting, Difficulty Swallowing, Anorexia Genitourinary: DENIES: Abnormal vaginal bleeding, Dysmenorrhea, Dyspareunia, Sexual dysfunction, Urinary frequency, Urinary incontinence, Urgency, Hematuria , Dysuria, Nocturia, Vaginal discharge Musculoskeletal: DENIES: Joint pain, Muscle aches, Stiffness, Joint Swelling, Back pain, Neck pain Integumentary: DENIES: Abnormal pigmentation, Pruritus, Rash, Nail changes, Breast masses, Breast skin changes, Nipple discharge Hematologic/lymphatic: DENIES: Bruising, Lymphadenopathy Immunologic/allergic: DENIES: Eczema, Urticaria Neurologic: DENIES: Abnormal gait, Headache, Localized weakness, Paresthesias, Seizures, Speech Problems, Tremor, Poor Balance Psychiatric: COMPLAINS OF: Anxiety, Mood changes, Delusions (there may be a component of delirium with this lady) Past Family Social History Coded Allergies: haloperidol (Unverified Allergy, Unknown, 05/25/17) Per MAR sent by [facility] [employer]. Active Scripts Prednisone (Prednisone) 20 Mg Tab, 40 MG PO DAILY, #8 TAB 0 Refills Take 40 mg (2 tablets) daily for 5 days Prov:Muriel Richard MD 08/26/17 [guaiFENesin ER] 600 MG TABCR No Conflict Check, 600 MG PO BID for health for 15 Days, #30 Prov:Parrish Beal MD 07/02/17 Divalproex ER (Depakote ER) 500 Mg Mila, 500 MG PO BID@0900,1300 for health for 30 Days, #60 TAB Prov:Parrish Beal MD 07/02/17 Cetirizine (Cetirizine) 10 Mg Tab, 10 MG PO DAILY for health for 30 Days, #30 TAB Prov:Parrish Beal MD 07/02/17 Triamcinolone Topical (Triamcinolone Topical) 0.1 % Oint, 1 APPLIC TOPICAL BID for health for 30 Days, #1 TUBE Prov:Parrish Beal MD 06/15/17 [Lactulose Liq] 30 ML SYRP No Conflict Check, 20 ML PO BID for health, #1 BOTTLE 0 Refills Prov:Kt Bruce MD 05/19/17 Budesonide-Formoterol Inh (Symbicort Inh) 80-4.5 Mcg/Act Aero, 1 PUFF INH Q12HR for health, #1 INHALER 0 Refills Prov:Kt Bruce MD 03/08/17 Oxcarbazepine (Oxcarbazepine) 300 Mg Tab, 300 MG PO BID for health, #60 TAB 0 Refills Prov:Kt Bruce MD 01/20/17 Divalproex ER (Depakote ER) 500 Mg Mila, 500 MG PO BID for health, #60 TAB 0 Refills Prov:Kt Bruce MD 01/20/17 Reported Medications Sodium Chloride (Sodium Chloride) 1 Gram Tab, 1 GM PO DAILY for Electrolyte Replacement, TAB 0 Refills 08/26/17 Risperidone Inj (Risperdal Consta Inj) 50 Mg/2 Ml Inj, 50 MG IM Q14D, VIAL 0 Refills 08/26/17 Metoprolol Tartrate (Metoprolol Tartrate) 25 Mg Tab, 12.5 MG PO DAILY, TAB 0 Refills 08/26/17 Divalproex ER (Divalproex ER) 250 Mg Mila, 125 MG PO DAILY for Control Seizures , TAB 0 Refills 08/26/17 Atorvastatin (Atorvastatin) 10 Mg Tab, 10 MG PO HS for Cholesterol Management, TAB 0 Refills 08/26/[address] (Aspirin EC) 81 Mg Tabdr, 81 MG PO DAILY, TAB 0 Refills 08/26/17 Alendronate (Alendronate) 70 Mg Tab, 70 MG PO Q7D ON FRIDAYS for Osteporosis Treatment, #4 TAB 0 Refills 01/13/17 Discontinued Reported Medications Quetiapine (Seroquel) 100 Mg Tab, 100 MG PO BID, TAB 0 Refills 08/26/17 Quetiapine (Seroquel) 200 Mg Tab, 200 MG PO HS, TAB 0 Refills 08/26/17 Quetiapine (Seroquel) 200 Mg Tab, 200 MG PO HS, #30 TAB 0 Refills 05/25/17 Quetiapine (Seroquel) 100 Mg Tab, 100 MG PO DAILY, #30 TAB 0 Refills 05/25/17 Discontinued Scripts Cephalexin (Cephalexin) 500 Mg Cap, 500 MG PO Q12HR for health for 5 Days, #10 CAP Prov:Parrish Beal MD 07/02/17 [Lactulose Liq] 30 ML SYRP No Conflict Check, 20 ML PO BID for health for 30 Days, #1 BOTTLE Prov:Parrish Beal MD 07/02/17 Triamcinolone Topical (Triamcinolone Topical) 0.1% Cream, 1 APPLIC TOPICAL BID for health for 30 Days, #1 TUBE Prov:Parrish Beal MD 07/02/17 Budesonide-Formoterol Inh (Symbicort Inh) 80-4.5 Mcg/Act Aero, 1 PUFF INH Q12HR for health for 30 Days, #1 INHALER Prov:Parrish Beal MD 07/02/17 Risperidone (Risperdal) 3 Mg Tab, 3 MG PO Q12HR for health for 15 Days, #30 TAB Prov:Parrish Beal MD 07/02/17 Oxcarbazepine (Oxcarbazepine) 300 Mg Tab, 300 MG PO BID for health for 30 Days, #60 TAB Prov:Parrish Beal MD 07/02/17 Divalproex ER (Depakote ER) 250 Mg Mila, 250 MG PO HS for health for 30 Days, # 30 TAB Prov:Parrish Beal MD 07/02/17 Metoprolol Tartrate (Metoprolol Tartrate) 25 Mg Tab, 12.5 MG PO BID for health for 30 Days, #30 TAB Prov:Parrish Beal MD 07/02/17 Pravastatin (Pravachol) 20 Mg Tab, 20 MG PO HS for health for 30 Days, #30 TAB Prov:Parrish Beal MD 07/02/17 [Lactulose Liq] 30 ML SYRP No Conflict Check, 20 ML PO BID for health for 30 Days, #1 BOTTLE Prov:Parrish Beal MD 06/15/17 Risperidone (Risperidone) 4 Mg Tab, 4 MG PO HS for health, #30 TAB 0 Refills Prov:Parrish Beal MD 06/15/17 Risperidone (Risperidone) 3 Mg Tab, 3 MG PO DAILY for health, #30 TAB 0 Refills Prov:Parrish Beal MD 06/15/17 Oxcarbazepine (Oxcarbazepine) 300 Mg Tab, 300 MG PO BID for health for 30 Days, #60 TAB Prov:Parrish Beal MD 06/15/17 Divalproex ER (Depakote ER) 500 Mg Mila, 500 MG PO BID for health for 30 Days, #60 TAB Prov:Parrish Beal MD 06/15/17 Divalproex ER (Depakote ER) 250 Mg Mila, 250 MG PO HS for health for 30 Days, # 30 TAB Prov:Parrish Beal MD 06/15/17 Metoprolol Tartrate (Metoprolol Tartrate) 25 Mg Tab, 12.5 MG PO BID for health for 30 Days, #15 TAB Prov:Parrish Beal MD 06/15/17 Pravastatin (Pravachol) 20 Mg Tab, 20 MG PO HS for health for 30 Days, #30 TAB Prov:Parrish Beal MD 06/15/17 Cetirizine (Cetirizine) 10 Mg Tab, 10 MG PO DAILY for health for 30 Days, #30 TAB Prov:Parrish Beal MD 06/15/17 Pravastatin (Pravachol) 20 Mg Tab, 20 MG PO HS for health, #30 TAB 0 Refills Prov:Kt Bruce MD 05/19/17 Divalproex ER (Depakote ER) 250 Mg Mila, 250 MG PO HS for health, #30 TAB 0 Refills Prov:Kt Bruce MD 05/19/17 Cetirizine (Cetirizine) 10 Mg Tab, 10 MG PO DAILY for health, #10 TAB 0 Refills Prov:Kt Bruce MD 05/19/17 Metoprolol Tartrate (Metoprolol Tartrate) 25 Mg Tab, 12.5 MG PO 1/2 bid for health, #30 TAB 0 Refills Prov:Kt Bruce MD 03/08/17 Escitalopram (Escitalopram) 20 Mg Tab, 20 MG PO DAILY for health, #30 TAB 0 Refills Prov:Kt Bruce MD 01/20/17 Current Medications Medications (Trade) Dose Ordered Sig/Sae Route Start Time Stop Time Status Last Admin (NS Flush) 2 ml UNSCH PRN IV FLUSH 08/26/17 17:15 (NS Flush) 2 ml BID IV FLUSH 08/26/17 21:00 08/26/17 21:17 (Narcan Inj) 0.4 mg UNSCH PRN IV PUSH 08/26/17 17:15 (Duoneb Neb) 1 ampule Q6HR NEB NEB 08/26/17 22:00 08/26/17 22:00 (Duoneb Neb) 1 ampule Q2HR NEB PRN NEB 08/26/17 19:00 (Ecotrin Ec) 81 mg DAILY PO 08/27/17 09:00 (Lipitor) 10 mg HS PO 08/26/17 21:00 08/26/17 21:15 (Symbicort 80-4.5 Mcg Inh) 1 puff Q12HR INH 08/26/17 21:00 08/26/17 21:14 (ZyrTEC) 10 mg DAILY PO 08/27/17 09:00 (Depakote Er) 125 mg DAILY PO 08/27/17 09:00 UNV (Depakote Er) 500 mg BID PO 08/26/17 21:00 08/26/17 21:15 (Lopressor) 12.5 mg DAILY PO 08/27/17 09:00 (Trileptal) 300 mg BID PO 08/26/17 21:00 08/26/17 21:14 (Sodium Chloride) 1 gm DAILY PO 08/27/17 09:00 (Lactulose Liq) 20 ml BID PO 08/26/17 21:00 08/26/17 21:15 Levofloxacin/ Dextrose 150 ml @ 100 mls/hr Q24H IV 08/26/17 21:00 Future Hold (Lovenox Inj) 40 mg Q24H SQ 08/27/17 09:00 (Levaquin) 750 mg DAILY@0500 PO 08/27/17 05:00 08/27/17 06:08 (risperDAL) 3 mg Q12HR PO 08/27/17 09:15 Physical Exam Please see MedSur assessment Vital Signs Vital Signs Date Time Temp Pulse Resp B/P (MAP) Pulse Ox O2 Delivery O2 Flow Rate FiO2 08/27/17 08:00 95.6 104 20 119/75 (90) 88 08/26/17 22:15 Nasal Cannula 2.00 Lab Results Test 08/26/17 13:46 08/26/17 14:26 08/26/17 15:20 White Blood Count 3.7 TH/MM3 Red Blood Count 3.86 MIL/MM3 Hemoglobin 12.5 GM/DL Hematocrit 37.8 % Mean Corpuscular Volume 97.9 FL Mean Corpuscular Hemoglobin 32.3 PG Mean Corpuscular Hemoglobin Concent 33.0 % Red Cell Distribution Width 14.4 % Platelet Count 190 TH/MM3 Mean Platelet Volume 9.4 FL Neutrophils (%) (Auto) 69.7 % Lymphocytes (%) (Auto) 20.7 % Monocytes (%) (Auto) 8.1 % Eosinophils (%) (Auto) 0.9 % Basophils (%) (Auto) 0.6 % Neutrophils # (Auto) 2.6 TH/MM3 Lymphocytes # (Auto) 0.8 TH/MM3 Monocytes # (Auto) 0.3 TH/MM3 Eosinophils # (Auto) 0.0 TH/MM3 Basophils # (Auto) 0.0 TH/MM3 CBC Comment DIFF FINAL Differential Comment Blood Urea Nitrogen 12 MG/DL Creatinine 0.44 MG/DL Random Glucose 83 MG/DL Total Protein 6.0 GM/DL Albumin 3.0 GM/DL Calcium Level 8.0 MG/DL Alkaline Phosphatase 75 U/L Aspartate Amino Transf (AST/SGOT) 21 U/L Alanine Aminotransferase (ALT/SGPT) 22 U/L Total Bilirubin 0.1 MG/DL Sodium Level 132 MEQ/L Potassium Level 4.4 MEQ/L Chloride Level 95 MEQ/L Carbon Dioxide Level 32.2 MEQ/L Anion Gap 5 MEQ/L Estimat Glomerular Filtration Rate 150 ML/MIN Blood Gas Puncture Site LT RADIAL LT RADIAL Blood Gas Patient Temperature 98.6 98.6 Blood Gas HCO3 32 mmol/L 33 mmol/L Blood Gas Base Excess 6.8 mmol/L 7.0 mmol/L Blood Gas Oxygen Saturation 79 % 84 % Arterial Blood pH 7.34 7.33 Arterial Blood Partial Pressure CO2 61 mmHg 64 mmHg Arterial Blood Partial Pressure O2 51 mmHG 62 mmHG Arterial Blood Oxygen Content 13.6 Vol % 15.1 Vol % Arterial Blood Carboxyhemoglobin 7.1 % 5.7 % Arterial Blood Methemoglobin 0.5 % 0.6 % Blood Gas Hemoglobin 12.2 G/DL 12.7 G/DL Blood Gas Inspired Oxygen 21 % Oxygen Delivery Device NASAL CANNULA Blood Gas Liter Flow 2 L/M Mental Status Examination Appearance: Disheveled Consciousness: Alert Orientation: Person, Place Motor Activity: Normal gait (patient seen in bed difficult to assess gait) Speech: Pressured, Rapid Language: Adequate Fund of Knowledge: Adequate Attention and Concentration: Other Memory: Impaired Mood: Angry, Anxious, Irritable Affect: Other (increase range and intensity) Thought Process & Associations: Circumstantial, Tangential Thought Content: Other (disorganized) Hallucination Type: None Delusion Type: Bizarre (denies) Suicidal Ideation: No Suicidal Plan: No Suicidal Intention: No Homicidal Ideation: No Homicidal Plan: No Homicidal Intention: No Insight: Poor Judgment: Poor Assessment & Plan Problem List: (1) Delirium due to another medical condition ICD Codes: F05 - Delirium due to known physiological condition (2) Paranoid type schizophrenia, chronic state ICD Codes: F20.0 - Paranoid schizophrenia Status: Acute Assessment & Plan Estimated LOS: days patient showing some disorganization and mild psychosis, there may be a component of delirium overlaid on her mental illness. Will restart her Respinol at 3 mg twice a day continue treating medical issues. Also have manager pediatric come and see patient. Once patient medically cleared I think the patient would be able to return to her alf. Patient counseled we'll continue to follow Discharge Planning To be determined we need to assess patient's recovery from her pneumonia and response to her medication Request HC Surrog/Guard Advoc?: Kt Love MD Aug 27, 2017 09:32
[2017-08-27] MEDS: ENOXAPARIN SODIUM 40 MG/0.4 ML SYRINGE SQ SCH (09:33)
[2017-08-27] MEDS: LACTULOSE SYRUP 20 GM/30 ML CUP PO SCH ×2 (09:33→21:00)
[2017-08-27] MEDS: risperiDONE 3 MG TAB PO SCH ×2 (10:24→23:23)
[2017-08-27 10:31] LABS: AUTOMATED NEUTROPHIL # 3.4 TH/MM3 (1.8-7.7); BASOPHIL % 0.3 % (0.0-2.0); EOSINOPHIL % 0.4 % (0.0-4.0); HEMATOCRIT 40.5 % (35.0-46.0); HEMOGLOBIN 13.6 GM/DL (11.6-15.3); LYMPH % 21.5 % (9.0-44.0); LYMPHOCYTE # 1.1 TH/MM3 (1.0-4.8); MEAN CELL VOLUME 98.1 FL (80.0-100.0); MEAN CORPUSCULAR HGB CONC 33.7 % (32.0-36.0); MEAN PLATELET VOLUME 9.7 FL (7.0-11.0); MONO % 11.6 % (0.0-8.0); MONOCYTE # 0.6 TH/MM3 (0-0.9); NEUT % 66.2 % (16.0-70.0); PLATELET COUNT 218 TH/MM3 (150-450); RED BLOOD COUNT 4.13 MIL/MM3 (4.00-5.30); RED CELL DISTRIBUTION WIDTH 14.4 % (11.6-17.2); WHITE BLOOD COUNT 5.1 TH/MM3 (4.0-11.0)
[2017-08-27 10:57] LABS: BICARBONATE 32.9 MEQ/L (21.0-32.0); CALCIUM 8.4 MG/DL (8.5-10.1); CREATININE 0.54 MG/DL (0.50-1.00)
[2017-08-27] MEDS: DIVALPROEX SODIUM E.R. 500 MG TAB PO SCH ×2 (11:31→23:23)
[2017-08-27] MEDS: SODIUM CHLORIDE 1 GRAM TAB PO SCH (11:32)
[2017-08-27] MEDS ORDERED: diphenhydrAMINE HCL 50 MG/ML VIAL IM STA (14:17)
[2017-08-27] MEDS ORDERED: LORazepam 2 MG/ML VIAL IM STA (14:17)
[2017-08-27] MEDS ORDERED: OLANZapine IM 10 MG VIAL IM STA (14:17)
--- NOTE | 2017-08-27 16:37 | HHI.PR ---
Subjective Remarks The patient was seen alongside with nursing. She was talking fast about various random and nonrelated topics. She was unable to voice any medical complaints. Objective Vitals Vital Signs Date Time Temp Pulse Resp B/P (MAP) Pulse Ox O2 Delivery O2 Flow Rate FiO2 08/27/17 16:25 22 08/27/17 16:00 95.5 104 18 122/86 (98) 91 08/27/17 12:00 96.4 78 18 114/84 (94) 91 08/27/17 08:00 95.6 104 20 119/75 (90) 88 08/27/17 04:10 108 20 131/95 (107) 96 08/26/17 22:15 96 Nasal Cannula 2.00 08/26/17 20:16 97 Nasal Cannula 2.00 08/26/17 20:00 110 20 128/82 (97) 83 08/26/17 19:29 08/26/17 17:19 80 20 108/68 (81) 92 Nasal Cannula 4.00 08/26/17 17:10 96 Nasal Cannula 2.00 I/O 08/26/17 08/26/17 08/26/17 08/27/17 08/27/17 08/27/17 07:00 15:00 23:00 07:00 15:00 23:00 # Voids 1 Result Diagram: 08/27/17 1003 08/27/17 1003 Imaging Last Impressions Chest X-Ray 08/26/17 0000 Signed Impressions: Service Date/Time: August 13:50 - CONCLUSION: Normal examination except for subtle indistinctness of the right hemidiaphragm may indicate a small right lower lobe pneumonia. Irving Can MD Objective Remarks GENERAL: The patient seems agitated. SKIN: No rashes, ecchymoses or lesions. Cool and dry. HEAD: Atraumatic. Normocephalic. No temporal or scalp tenderness. ENT: Nose without bleeding, purulent drainage or septal hematoma. Airway patent. NECK: Trachea midline. No JVD Supple, nontender, no meningeal signs. CARDIOVASCULAR: Regular rate and rhythm without murmurs, gallops, or rubs. RESPIRATORY: Clear to auscultation. No wheezes, rales, or rhonchi. GASTROINTESTINAL: Abdomen soft, non-tender, nondistended. No guarding. MUSCULOSKELETAL: Extremities without clubbing, cyanosis, or edema. NEUROLOGICAL: Moving all 4 extremities. Hyper speech. No gross focal deficits. PSYCH: Exhibiting psychosis. Medications and IVs Current Medications Medications (Trade) Dose Ordered Sig/Sae Route Start Time Stop Time Status Last Admin (NS Flush) 2 ml UNSCH PRN IV FLUSH 08/26/17 17:15 (NS Flush) 2 ml BID IV FLUSH 08/26/17 21:00 08/26/17 21:17 (Narcan Inj) 0.4 mg UNSCH PRN IV PUSH 08/26/17 17:15 (Duoneb Neb) 1 ampule Q6HR NEB NEB 08/26/17 22:00 08/26/17 22:00 (Duoneb Neb) 1 ampule Q2HR NEB PRN NEB 08/26/17 19:00 (Ecotrin Ec) 81 mg DAILY PO 08/27/17 09:00 08/27/17 09:30 (Lipitor) 10 mg HS PO 08/26/17 21:00 08/26/17 21:15 (Symbicort 80-4.5 Mcg Inh) 1 puff Q12HR INH 08/26/17 21:00 08/27/17 09:25 (ZyrTEC) 10 mg DAILY PO 08/27/17 09:00 08/27/17 09:29 (Depakote Er) 500 mg BID PO 08/26/17 21:00 08/27/17 11:31 (Lopressor) 12.5 mg DAILY PO 08/27/17 09:00 08/27/17 09:28 (Trileptal) 300 mg BID PO 08/26/17 21:00 08/27/17 09:29 (Sodium Chloride) 1 gm DAILY PO 08/27/17 09:00 08/27/17 11:32 (Lactulose Liq) 20 ml BID PO 08/26/17 21:00 08/27/17 09:33 Levofloxacin/ Dextrose 150 ml @ 100 mls/hr Q24H IV 08/26/17 21:00 Future Hold (Lovenox Inj) 40 mg Q24H SQ 08/27/17 09:00 08/27/17 09:33 (Levaquin) 750 mg DAILY@0500 PO 08/27/17 05:00 08/27/17 06:08 (risperDAL) 3 mg Q12HR PO 08/27/17 09:15 08/27/17 10:24 A/P Assessment and Plan COPD exacerbation/ Right lower lobe pneumonia Compensated ABG. - Nebulizers scheduled and when necessary. - Oxygen supplementation. - Levofloxacin 750 mg daily. - IS. - IV fluids. Decompensation of schizophrenia Likely secondary to medications adjustments. Per her senior care records, it is noted that her Seroquel was discontinued this month. Psych consult appreciated. - medication adjustments per psychiatry. Hyponatremia Chronic. Stable. - Monitor as needed. Tachycardia Likely secondary to infection and agitation. - Treatment as above. DVT prophylaxis with Lovenox. Discharge Planning Discharged back to SNF when medically stable Nitish Willis DO Aug 27, 2017 16:37
[2017-08-27] MEDS: ATORVASTATIN 10 MG TAB PO SCH (21:00)
[2017-08-28] MEDS: RESP: ALBUTEROL 2.5 MG/IPRATROPIUM 0.5 MG NEB (SCH) NEB ×4 (03:15→21:02)
[2017-08-28] MEDS: LEVOFLOXACIN 750 MG TAB PO SCH (05:10)
[2017-08-28 05:59] VITALS: O2SAT 97
[2017-08-28 08:00] VITALS: BP 129/73; PULSE 75; RESP 17; TEMP 97.7; O2SAT 94
[2017-08-28] MEDS: SODIUM CHLORIDE 1 GRAM TAB PO SCH (08:08)
[2017-08-28] MEDS: ASPIRIN EC 81 MG TABEC PO SCH (08:08)
[2017-08-28] MEDS: CETIRIZINE HCL 10 MG TAB PO SCH (08:09)
[2017-08-28] MEDS: ENOXAPARIN SODIUM 40 MG/0.4 ML SYRINGE SQ SCH (08:09)
[2017-08-28] MEDS: OXcarbazepine 300 MG TAB PO SCH ×2 (08:09→20:36)
[2017-08-28] MEDS: BUDESONIDE-FORMOTEROL 80/4.5 MCG INHALER INH SCH ×2 (08:09→20:35)
[2017-08-28] MEDS: METOPROLOL TARTRATE 25 MG TAB PO SCH (08:09)
[2017-08-28] MEDS: DIVALPROEX SODIUM E.R. 500 MG TAB PO SCH ×2 (08:09→20:36)
[2017-08-28] MEDS: LACTULOSE SYRUP 20 GM/30 ML CUP PO SCH ×2 (08:09→20:36)
[2017-08-28] MEDS: SODIUM CHLORIDE 0.9% FLUSH 10 ML FLUSH IV FLUSH SCH ×2 (08:09→20:36)
[2017-08-28] MEDS: risperiDONE 3 MG TAB PO SCH ×2 (08:09→20:36)
[2017-08-28 09:22] VITALS: O2SAT 92
[2017-08-28 12:00] VITALS: BP 131/70; PULSE 88; RESP 17; TEMP 96.4; O2SAT 94
--- NOTE | 2017-08-28 14:22 | HHI.PR ---
Subjective Remarks The patient was sleeping in bed. She appeared comfortable. Discussed with nursing. Objective Vitals Vital Signs Date Time Temp Pulse Resp B/P (MAP) Pulse Ox O2 Delivery O2 Flow Rate FiO2 08/28/17 14:06 4.00 08/28/17 12:00 96.4 88 17 131/70 (90) 94 08/28/17 09:22 92 4.00 08/28/17 08:00 97.7 75 17 129/73 (91) 94 08/28/17 05:59 97 Nasal Cannula 2.00 08/27/17 20:00 98.4 96 20 139/77 (97) 96 08/27/17 16:45 20 08/27/17 16:25 22 08/27/17 16:00 95.5 104 18 122/86 (98) 91 I/O 08/27/17 08/27/17 08/27/17 08/28/17 08/28/17 08/28/17 07:00 15:00 23:00 07:00 15:00 23:00 Intake Total 1200 ml Balance 1200 ml Intake Oral 1200 ml # Voids 5 # Bowel Movements 0 Result Diagram: 08/27/17 1003 08/27/17 1003 Imaging Last Impressions Chest X-Ray 08/26/17 0000 Signed Impressions: Service Date/Time: August 13:50 - CONCLUSION: Normal examination except for subtle indistinctness of the right hemidiaphragm may indicate a small right lower lobe pneumonia. Irving Can MD Objective Remarks GENERAL: Resting comfortably. SKIN: No rashes, ecchymoses or lesions. Cool and dry. HEAD: Atraumatic. Normocephalic. No temporal or scalp tenderness. ENT: Nose without bleeding, purulent drainage or septal hematoma. Airway patent. NECK: Trachea midline. No JVD Supple, nontender, no meningeal signs. CARDIOVASCULAR: Regular rate and rhythm without murmurs, gallops, or rubs. RESPIRATORY: Clear to auscultation. No wheezes, rales, or rhonchi. GASTROINTESTINAL: Abdomen soft, non-tender, nondistended. No guarding. MUSCULOSKELETAL: Extremities without clubbing, cyanosis, or edema. NEUROLOGICAL: Moving all 4 extremities. No gross focal deficits. PSYCH: Calm. Medications and IVs Current Medications Medications (Trade) Dose Ordered Sig/Sae Route Start Time Stop Time Status Last Admin (NS Flush) 2 ml UNSCH PRN IV FLUSH 08/26/17 17:15 (NS Flush) 2 ml BID IV FLUSH 08/26/17 21:00 08/28/17 08:09 (Narcan Inj) 0.4 mg UNSCH PRN IV PUSH 08/26/17 17:15 (Duoneb Neb) 1 ampule Q6HR NEB NEB 08/26/17 22:00 08/28/17 09:19 (Duoneb Neb) 1 ampule Q2HR NEB PRN NEB 08/26/17 19:00 08/28/17 05:55 (Ecotrin Ec) 81 mg DAILY PO 08/27/17 09:00 08/28/17 08:08 (Lipitor) 10 mg HS PO 08/26/17 21:00 08/26/17 21:15 (Symbicort 80-4.5 Mcg Inh) 1 puff Q12HR INH 08/26/17 21:00 08/28/17 08:09 (ZyrTEC) 10 mg DAILY PO 08/27/17 09:00 08/28/17 08:09 (Depakote Er) 500 mg BID PO 08/26/17 21:00 08/28/17 08:09 (Lopressor) 12.5 mg DAILY PO 08/27/17 09:00 08/28/17 08:09 (Trileptal) 300 mg BID PO 08/26/17 21:00 08/28/17 08:09 (Sodium Chloride) 1 gm DAILY PO 08/27/17 09:00 08/28/17 08:08 (Lactulose Liq) 20 ml BID PO 08/26/17 21:00 08/28/17 08:09 (Lovenox Inj) 40 mg Q24H SQ 08/27/17 09:00 08/28/17 08:09 (Levaquin) 750 mg DAILY@0500 PO 08/27/17 05:00 08/28/17 05:10 (risperDAL) 3 mg Q12HR PO 08/27/17 09:15 08/28/17 08:09 A/P Assessment and Plan COPD exacerbation/ Right lower lobe pneumonia Compensated ABG. - Nebulizers scheduled and when necessary. - Oxygen supplementation. - Levofloxacin 750 mg daily. - IS. - IV fluids. - Solumedrol 40 mg IV q 8h. - repeat walk test prior to d/c. Decompensation of schizophrenia Likely secondary to medications adjustments. [facility], it is noted that her Seroquel was discontinued this month. Psych consult appreciated. - medication adjustments per psychiatry. Hyponatremia Chronic. Stable. - Monitor as needed. Tachycardia Likely secondary to infection and agitation. - Treatment as above. - resolved. DVT prophylaxis with Lovenox. Discharge Planning Discharged back to [facility] when medically stable Nitish Willis DO Aug 28, 2017 14:22
[2017-08-28] MEDS ORDERED: methylPREDNISolone SOD SUCC 40 MG/1 ML VIAL IV PUSH SCH (14:30)
[2017-08-28 16:00] VITALS: BP 133/76; PULSE 94; RESP 17; TEMP 97.7; O2SAT 95
[2017-08-28] MEDS: predniSONE 50 MG TAB PO SCH (17:00)
[2017-08-28 20:00] VITALS: BP 123/76; PULSE 92; RESP 18; TEMP 98.9; O2SAT 94
[2017-08-28] MEDS: ATORVASTATIN 10 MG TAB PO SCH (20:36)
[2017-08-28 23:05] LABS: HEMOGLOBIN 13.5 GM/DL (11.6-15.3); MEAN CORPUSCULAR HEMOGLOBIN 32.7 PG (27.0-34.0); MEAN PLATELET VOLUME 9.9 FL (7.0-11.0); PLATELET COUNT 195 TH/MM3 (150-450); RED BLOOD COUNT 4.14 MIL/MM3 (4.00-5.30); RED CELL DISTRIBUTION WIDTH 14.6 % (11.6-17.2); WHITE BLOOD COUNT 6.4 TH/MM3 (4.0-11.0)
[2017-08-28 23:21] LABS: BICARBONATE 34.6 MEQ/L (21.0-32.0); CREATININE 0.71 MG/DL (0.50-1.00); MAGNESIUM 1.7 MG/DL (1.5-2.5)
[2017-08-29] VITALS: BP 138/82; PULSE 86; RESP 18; TEMP 97.1; O2SAT 95
[2017-08-29] MEDS: RESP: ALBUTEROL 2.5 MG/IPRATROPIUM 0.5 MG NEB (SCH) NEB ×4 (04:46→23:23)
[2017-08-29] MEDS: LEVOFLOXACIN 750 MG TAB PO SCH (06:14)
[2017-08-29] MEDS: BUDESONIDE-FORMOTEROL 80/4.5 MCG INHALER INH SCH ×2 (07:48→20:30)
[2017-08-29] MEDS: LACTULOSE SYRUP 20 GM/30 ML CUP PO SCH ×2 (07:49→20:30)
[2017-08-29] MEDS: SODIUM CHLORIDE 1 GRAM TAB PO SCH (07:49)
[2017-08-29] MEDS: OXcarbazepine 300 MG TAB PO SCH ×2 (07:50→20:29)
[2017-08-29] MEDS: CETIRIZINE HCL 10 MG TAB PO SCH (07:50)
[2017-08-29] MEDS: DIVALPROEX SODIUM E.R. 500 MG TAB PO SCH ×2 (07:50→20:29)
[2017-08-29] MEDS: ASPIRIN EC 81 MG TABEC PO SCH (07:50)
[2017-08-29] MEDS: predniSONE 50 MG TAB PO SCH (07:50)
[2017-08-29] MEDS: METOPROLOL TARTRATE 25 MG TAB PO SCH (07:50)
[2017-08-29] MEDS: SODIUM CHLORIDE 0.9% FLUSH 10 ML FLUSH IV FLUSH SCH ×2 (07:50→20:30)
[2017-08-29] MEDS: risperiDONE 3 MG TAB PO SCH ×2 (07:50→20:29)
[2017-08-29] MEDS: ENOXAPARIN SODIUM 40 MG/0.4 ML SYRINGE SQ SCH (07:51)
[2017-08-29 08:00] VITALS: BP 103/66; PULSE 107; RESP 20; TEMP 98.3; O2SAT 95
[2017-08-29 12:00] VITALS: BP 110/69; PULSE 100; RESP 20; TEMP 97.9; O2SAT 91
--- NOTE | 2017-08-29 14:22 | HHI.PR ---
Subjective Remarks The patient was sitting in a chair, eating lunch. She said she would like to go back to her skilled nursing. She had no acute complaints. Discussed with nursing at the bedside. Objective Vitals Vital Signs Date Time Temp Pulse Resp B/P (MAP) Pulse Ox O2 Delivery O2 Flow Rate FiO2 08/29/17 12:00 97.9 100 20 110/69 (83) 91 08/29/17 08:00 98.3 107 20 103/66 (78) 95 08/29/17 00:00 97.1 86 18 138/82 (100) 95 08/28/17 20:00 98.9 92 18 123/76 (92) 94 08/28/17 16:00 97.7 94 17 133/76 (95) 95 I/O 08/28/17 08/28/17 08/28/17 08/29/17 08/29/17 08/29/17 07:00 15:00 23:00 07:00 15:00 23:00 Intake Total 240 ml 720 ml Balance 240 ml 720 ml Intake Oral 240 ml 720 ml IV Total 0 ml # Voids 3 4 # Bowel Movements 0 0 Result Diagram: 08/28/17 2211 08/28/17 2211 Imaging Last Impressions Chest X-Ray 08/26/17 0000 Signed Impressions: Service Date/Time: August 13:50 - CONCLUSION: Normal examination except for subtle indistinctness of the right hemidiaphragm may indicate a small right lower lobe pneumonia. Irving Can MD Objective Remarks GENERAL: Resting comfortably. SKIN: No rashes, ecchymoses or lesions. Cool and dry. HEAD: Atraumatic. Normocephalic. No temporal or scalp tenderness. ENT: Nose without bleeding, purulent drainage or septal hematoma. Airway patent. NECK: Trachea midline. No JVD Supple, nontender, no meningeal signs. CARDIOVASCULAR: Regular rate and rhythm without murmurs, gallops, or rubs. RESPIRATORY: Clear to auscultation. No wheezes, rales, or rhonchi. GASTROINTESTINAL: Abdomen soft, non-tender, nondistended. No guarding. MUSCULOSKELETAL: Extremities without clubbing, cyanosis, or edema. NEUROLOGICAL: Moving all 4 extremities. No gross focal deficits. PSYCH: Calm. Medications and IVs Current Medications Medications (Trade) Dose Ordered Sig/Sae Route Start Time Stop Time Status Last Admin (NS Flush) 2 ml UNSCH PRN IV FLUSH 08/26/17 17:15 (NS Flush) 2 ml BID IV FLUSH 08/26/17 21:00 08/28/17 08:09 (Narcan Inj) 0.4 mg UNSCH PRN IV PUSH 08/26/17 17:15 (Duoneb Neb) 1 ampule Q6HR NEB NEB 08/26/17 22:00 08/28/17 15:14 (Duoneb Neb) 1 ampule Q2HR NEB PRN NEB 08/26/17 19:00 08/28/17 05:55 (Ecotrin Ec) 81 mg DAILY PO 08/27/17 09:00 08/29/17 07:50 (Lipitor) 10 mg HS PO 08/26/17 21:00 08/28/17 20:36 (Symbicort 80-4.5 Mcg Inh) 1 puff Q12HR INH 08/26/17 21:00 08/29/17 07:48 (ZyrTEC) 10 mg DAILY PO 08/27/17 09:00 08/29/17 07:50 (Depakote Er) 500 mg BID PO 08/26/17 21:00 08/29/17 07:50 (Lopressor) 12.5 mg DAILY PO 08/27/17 09:00 08/29/17 07:50 (Trileptal) 300 mg BID PO 08/26/17 21:00 08/29/17 07:50 (Sodium Chloride) 1 gm DAILY PO 08/27/17 09:00 08/29/17 07:49 (Lactulose Liq) 20 ml BID PO 08/26/17 21:00 08/29/17 07:49 (Lovenox Inj) 40 mg Q24H SQ 08/27/17 09:00 08/29/17 07:51 (Levaquin) 750 mg DAILY@0500 PO 08/27/17 05:00 08/29/17 06:14 (risperDAL) 3 mg Q12HR PO 08/27/17 09:15 08/29/17 07:50 (Deltasone) 50 mg DAILY PO 08/28/17 17:00 08/29/17 07:50 A/P Assessment and Plan COPD exacerbation/ Right lower lobe pneumonia Compensated ABG. Failed home oxygen walk test. - Nebulizers scheduled and when necessary. - Oxygen supplementation. - Levofloxacin 750 mg daily. - IS. - IV fluids. - prednisone. - repeat walk test prior to d/c. Apparently her skilled nursing does not accept home oxygen. Decompensation of schizophrenia Likely secondary to medications adjustments. Per her shelter records, it is noted that her Seroquel was discontinued this month. Psych consult appreciated. - medication adjustments per psychiatry. Hyponatremia Chronic. Stable. - Monitor as needed. Tachycardia Likely secondary to infection and agitation. - Treatment as above. - resolved. DVT prophylaxis with Lovenox. Discharge Planning Discharged back to skilled nursing when respiratory status is improved/ passes home oxygen walk test Nitish Willis DO Aug 29, 2017 14:22
[2017-08-29] MEDS ORDERED: diphenhydrAMINE HCL 50 MG/ML VIAL IM STA (14:52)
[2017-08-29] MEDS ORDERED: OLANZapine IM 10 MG VIAL IM STA (14:52)
[2017-08-29 16:00] VITALS: BP 110/70; PULSE 106; RESP 20; TEMP 97; O2SAT 94
[2017-08-29] MEDS: OLANZapine ODT 10 MG TAB PO SCH (20:29)
[2017-08-29] MEDS: ATORVASTATIN 10 MG TAB PO SCH (20:30)
[2017-08-29 23:25] VITALS: O2SAT 93
[2017-08-29 23:54] VITALS: BP 127/92; PULSE 105; RESP 20; TEMP 96.3; O2SAT 86
[2017-08-30] MEDS: RESP: ALBUTEROL 2.5 MG/IPRATROPIUM 0.5 MG NEB (SCH) NEB ×3 (03:02→16:31)
[2017-08-30] MEDS: LEVOFLOXACIN 750 MG TAB PO SCH (04:59)
[2017-08-30] MEDS: SODIUM CHLORIDE 0.9% FLUSH 10 ML FLUSH IV FLUSH SCH (07:27)
[2017-08-30 07:35] VITALS: BP 119/80; PULSE 98; RESP 20; TEMP 97.6; O2SAT 96
[2017-08-30] MEDS: SODIUM CHLORIDE 1 GRAM TAB PO SCH (08:33)
[2017-08-30] MEDS: OXcarbazepine 300 MG TAB PO SCH (08:33)
[2017-08-30] MEDS: DIVALPROEX SODIUM E.R. 500 MG TAB PO SCH (08:33)
[2017-08-30] MEDS: METOPROLOL TARTRATE 25 MG TAB PO SCH (08:33)
[2017-08-30] MEDS: ASPIRIN EC 81 MG TABEC PO SCH (08:33)
[2017-08-30] MEDS: risperiDONE 3 MG TAB PO SCH (08:33)
[2017-08-30] MEDS: CETIRIZINE HCL 10 MG TAB PO SCH (08:33)
[2017-08-30] MEDS: OLANZapine ODT 10 MG TAB PO SCH (08:33)
[2017-08-30] MEDS: predniSONE 50 MG TAB PO SCH (08:34)
[2017-08-30] MEDS: ENOXAPARIN SODIUM 40 MG/0.4 ML SYRINGE SQ SCH (08:34)
[2017-08-30] MEDS: BUDESONIDE-FORMOTEROL 80/4.5 MCG INHALER INH SCH (08:34)
[2017-08-30] MEDS: LACTULOSE SYRUP 20 GM/30 ML CUP PO SCH (08:34)
[2017-08-30 08:45] VITALS: O2SAT 97
[2017-08-30 12:00] VITALS: BP 112/65; PULSE 91; RESP 19; TEMP 98.7; O2SAT 95
[2017-08-30] MEDS ORDERED: Albuterol-Ipratropium Neb NEB (13:10)
[2017-08-30] MEDS ORDERED: LEVA750T9 PO (13:10)
--- NOTE | 2017-08-30 13:10 | HHI.DCPOC ---
Discharge Care Plan Diagnosis: (1) COPD (chronic obstructive pulmonary disease) (2) Pneumonia Goals to Promote Your Health * To prevent worsening of your condition and complications * To maintain your health at the optimal level Directions to Meet Your Goals Take your medications as prescribed Follow your dietary instruction Follow activity as directed Keep your appointments as scheduled Take your immunizations and boosters as scheduled If your symptoms worsen call your PCP, if no PCP go to Urgent Care Center or Emergency Room Smoking is Dangerous to Your Health. Avoid second hand smoke Call the 24-hour hour crisis hotline for domestic abuse at Avani Pearl MD Aug 30, 2017 13:10
--- NOTE | 2017-08-30 13:14 | HHI.DS ---
Discharge Summary Admission Date Aug 26, 2017 at 17:05 Discharge Date: Aug 30, 2017 Admitting Diagnosis hypoxia, copd (1) schizophrenia Status: Acute (2) COPD (chronic obstructive pulmonary disease) ICD Code: J44.9 - Chronic obstructive pulmonary disease Status: Chronic (3) Pneumonia ICD Code: J18.9 - Pneumonia, unspecified organism Status: Acute Procedures none Brief History - From Admission History from the ER physician communication, and review of medical records, and nursing staff. Patient is extremely poor historian. She is mostly moaning. She is also telling me not to ask her questions. According to the nurse who received the patient from [facility], this is her baseline. The staff members who brought her from [facility] reported to ER nurse that patient was brought in for psychiatric evaluation for her baseline schizophrenia exacerbation. They also reported that the way patient is mostly sleeping and not answering questions and somewhat agitated his her baseline. She is not able to give history. While in emergency room, patient was noted to be quite hypoxic on room air. It was noted that patient's oxygen down to the 80s while on room air. She was therefore placed on 4 L nasal cannula. ABGs also revealed chronic CO2 retention with hypoxia. Patient has had prior history of intubation for her COPD twice at our hospital. Patient is also noted to be coughing. Chest x-ray reveals possible right lower lobe pneumonia. Personally reviewed. Patient was therefore referred for medical admission On review of medical records from the [facility], it seems that patient was started on Seroquel at the nursing facility. CBC/BMP: 08/28/17 2211 08/28/17 2211 Significant Findings Laboratory Tests Test 08/28/17 22:11 Random Glucose 175 MG/DL (74-106) Calcium Level 8.0 MG/DL (8.5-10.1) Sodium Level 128 MEQ/L (136-145) Chloride Level 88 MEQ/L (98-107) Carbon Dioxide Level 34.6 MEQ/L (21.0-32.0) Estimat Glomerular Filtration Rate 86 ML/MIN (>89) PE at Discharge GENERAL: Resting comfortably. SKIN: No rashes, ecchymoses or lesions. Cool and dry. HEAD: Atraumatic. Normocephalic. No temporal or scalp tenderness. ENT: Nose without bleeding, purulent drainage or septal hematoma. Airway patent. NECK: Trachea midline. No JVD Supple, nontender, no meningeal signs. CARDIOVASCULAR: Regular rate and rhythm without murmurs, gallops, or rubs. RESPIRATORY: Clear to auscultation. No wheezes, rales, or rhonchi. GASTROINTESTINAL: Abdomen soft, non-tender, nondistended. No guarding. MUSCULOSKELETAL: Extremities without clubbing, cyanosis, or edema. NEUROLOGICAL: Moving all 4 extremities. No gross focal deficits. PSYCH: Calm. Pt update on day of discharge Patient doing well, not hypoxemic on floor Discussed with Haile MCCALL Hospital Course Seen and treated for a COPD exacerbation as well as a right lower lobe pneumonia. Initially she didn't require oxygen but this improved. She was given oral antibiotics and steroids.. She does have schizophrenia and is currently in a [facility]. Psych consult appreciated and medications were adjusted due to decompensation in her mental status. Pt Condition on Discharge: Stable Discharge Disposition: [facility] Discharge Time: > 30 minutes Discharge Instructions New Medications: Levofloxacin (Levaquin) 750 Mg Tablet 750 MG PO DAILY@0500 for Infection, #2 TAB [Albuterol-Ipratropium Neb] () 1 AMPULE NEBU 1 AMPULE NEB Q6HR NEB for Inflammation, #90 NEBULE Continued Medications: Alendronate (Alendronate) 70 Mg Tab 70 MG PO Q7D ON FRIDAYS for Osteporosis Treatment, #4 TAB [address] (Aspirin EC) 81 Mg Tabdr 81 MG PO DAILY, TAB 0 Refills Atorvastatin (Atorvastatin) 10 Mg Tab 10 MG PO HS for Cholesterol Management, TAB 0 Refills Budesonide-Formoterol Inh (Symbicort Inh) 80-4.5 Mcg/Act Aero 1 PUFF INH Q12HR for health, #1 INHALER 0 Refills Cetirizine (Cetirizine) 10 Mg Tab 10 MG PO DAILY for health for 30 Days, #30 TAB Divalproex ER (Depakote ER) 500 Mg Mila 500 MG PO BID for health, #60 TAB 0 Refills Divalproex ER (Depakote ER) 500 Mg Mila 500 MG PO BID@0900,1300 for health for 30 Days, #60 TAB Divalproex ER (Divalproex ER) 250 Mg Mila 125 MG PO DAILY for Control Seizures, TAB 0 Refills Metoprolol Tartrate (Metoprolol Tartrate) 25 Mg Tab 12.5 MG PO DAILY, TAB 0 Refills Oxcarbazepine (Oxcarbazepine) 300 Mg Tab 300 MG PO BID for health, #60 TAB 0 Refills Prednisone (Prednisone) 20 Mg Tab 40 MG PO DAILY, #8 TAB 0 Refills Take 40 mg (2 tablets) daily for 5 days Risperidone Inj (Risperdal Consta Inj) 50 Mg/2 Ml Inj 50 MG IM Q14D, VIAL 0 Refills Sodium Chloride (Sodium Chloride) 1 Gram Tab 1 GM PO DAILY for Electrolyte Replacement, TAB 0 Refills Triamcinolone Topical (Triamcinolone Topical) 0.1 % Oint 1 APPLIC TOPICAL BID for health for 30 Days, #1 TUBE [guaiFENesin ER] () 600 MG TABCR 600 MG PO BID for health for 15 Days, #30 [Lactulose] () 30 ML SYRP 20 ML PO BID for health, #1 BOTTLE 0 Refills Avani Pearl MD Aug 30, 2017 13:14
[2017-08-30] MEDS ORDERED: OLANZ10 PO (13:16)
[2017-08-30] MEDS ORDERED: RISP3 PO (13:16)
[2017-08-30 16:00] VITALS: BP 123/81; PULSE 113; RESP 20; TEMP 97.8; O2SAT 96
== END 2017-08-30 17:52 | DRG 190 ==
LOC: NEPD 11:13 → NEDA 17:05 → N07B 19:30
PROVIDERS: ADMIT Hospitalist; ATTEND Hospitalist
DX: J44.1 Chronic obstructive pulmonary disease with (acute) exacerbation (principal); J44.0 Chronic obstructive pulmonary disease with (acute) lower respiratory infection; J18.9 Pneumonia, unspecified organism; J96.11 Chronic respiratory failure with hypoxia; E87.1 Hypo-osmolality and hyponatremia; F20.9 Schizophrenia, unspecified; R00.0 Tachycardia, unspecified; Z87.891 Personal history of nicotine dependence
CPT/HCPCS: 36600; 71010; 80048; 80053; 82805; 83735; 85025; 85027; 94150; 94620; 94640; 94664; 99285; J1200; J1650; J1956; J2060; J7512

== ENCOUNTER 2017-09-01 15:22 | Inpatient (IN) | payer MEDICARE, MEDICAID, OTHER ==
[~2017-09-01] VITALS: Ht 165.1 cm; Wt 67.3 kg
[~2017-09-01 15:22] MED LIST changes: +ASPI81TA23 PO; +ATOR10TA15 PO; -CEPH500C PO; -DIVA250ER PO; +DIVA250T3 PO; -ESCI20TA PO; +LEVA750T9 PO; -Lactulose Liq PO; +OLANZ10 PO; -PRAV20TA PO; +PRED20 PO; -RISP3TAB2 PO; -RISP4TAB2 PO; +RISP50P IM; -SERO100T PO; -SERO200T PO; +SODI1TAB PO; -TRIA.1%T TOPICAL
[2017-09-01 15:37] VITALS: BP 123/84; PULSE 98; RESP 18; TEMP 98.5; O2SAT 95
--- NOTE | 2017-09-01 16:17 | PD ---
HPI Chief Complaint: Psychiatric Symptoms Time Seen by Provider: 15:39 Travel History International Travel<30 days: No Contact w/Intl Traveler<30days: No Traveled to known affect area: No History of Present Illness HPI Patient presents as [facility]. According to the documentation there is concern that the patient will "cause serious bodily harm to herself because she has been screaming at the wall says that they were people. Accusing the shea chairs and dorsum of hitting her, pulling her hair, busting her teeth out, and abusing her. Crying for no reason, throwing food down and stating she is not eating. Running into shea, furniture, screaming at all hours of the day and night. Trying to walking the streets, not being going." Apparently she has been refusing mental health care. Patient denies suicidal or homicidal ideations. Denies illicit drug use or call use. Denies visual or auditory hallucinations. Has no emergent medical complaints. Allergies to haloperidol. Patient is asking when she is being moved to the psych [place] and what's for dinner. Patient states she has a cataract. No known relieving or aggravating factors. Symptoms are mild in severity. No other modifying factors or associated signs and symptoms. PFSH Past Medical History Arthritis: No Asthma: No Autoimmune Disease: No Anxiety: Yes Depression: Yes Heart Rhythm Problems: No Cancer: No Cardiovascular Problems: Yes (HTN) High Cholesterol: No Chemotherapy: No Chest Pain: No Congestive Heart Failure: No COPD: Yes Cerebrovascular Accident: No Diabetes: No Diminished Hearing: No Endocrine: No Gastrointestinal Disorders: No GERD: No Genitourinary: No Headaches: No Hiatal Hernia: No Hypertension: Yes Immune Disorder: No Implanted Vascular Access Dvce: No Kidney Stones: No Musculoskeletal: No Neurologic: No Psychiatric: Yes (Hx of treatment for Schizophrenia) Reproductive: No Respiratory: Yes (recent acute respiratory failure,COPD) Immunizations Current: No Migraines: No Radiation Therapy: No Renal Failure: No Schizophrenia: Yes Seizures: No Sickle Cell Disease: No Sleep Apnea: No Thyroid Disease: No Ulcer: No Tetanus Vaccination: Unknown Influenza Vaccination: Yes ?: Not Menopausal: Yes : 1 Para: 1 Miscarriage: 0 : 0 Tubal Ligation: Yes Past Surgical History Abdominal Surgery: No AICD: No Arteriovenous Shunt: No Cardiac Surgery: No Genitourinary Surgery: No Gynecologic Surgery: Yes Insulin Pump: No Pacemaker: No Thoracic Surgery: No Other Surgery: Yes Social History Alcohol Use: No Tobacco Use: Yes Substance Use: No Allergies-Medications (Allergen,Severity, Reaction): Coded Allergies: haloperidol (Unverified Allergy, Unknown, 05/25/17) Per MAR sent by [facility]. Reported Meds & Prescriptions Reported Meds & Active Scripts Active Cetirizine (Cetirizine HCl) 10 Mg Tab 10 Mg PO DAILY 30 Days Triamcinolone Topical (Triamcinolone Acetonide) 0.1 % Oint 1 Applic TOPICAL BID 30 Days Symbicort Inh (Budesonide/Formoterol Fumarate) 80-4.5 Mcg/Act Aero 1 Puff INH Q12HR Oxcarbazepine 300 Mg Tab 300 Mg PO BID Depakote ER (Divalproex Sodium) 500 Mg Mila 500 Mg PO BID Reported Diphenhydramine (Diphenhydramine HCl) 25 Mg Cap 25 Mg PO HS Tussin Dm 100-10 mg/5Ml (Dextromethorphan-Guaifenesin) 100 Mg-10 Mg/5 Ml Liq 10 Ml PO Q6HR PRN Lactulose 10 Gram/15 Ml (15 Ml) Solution 20 Ml PO BID Fluphenazine (Fluphenazine HCl) 2.5 Mg Tab 2.5 Mg PO QID Depakote Sprinkles (Divalproex Sodium) 125 mg Cap 125 Mg PO HS Sodium Chloride 1 Gram Tab 1 Gm PO DAILY Risperdal Consta Inj (Risperidone) 50 Mg/2 Ml Inj 50 Mg IM Q14D Metoprolol Tartrate 25 Mg Tab 12.5 Mg PO DAILY Atorvastatin (Atorvastatin Calcium) 10 Mg Tab 10 Mg PO HS Aspirin EC (Aspirin) 81 Mg Tabdr 81 Mg PO DAILY Review of Systems Except as stated in HPI: all other systems reviewed are Neg Physical Exam Narrative GENERAL: Well-nourished, well-developed female patient, in no acute distress SKIN: Warm and dry. HEAD: Atraumatic. Normocephalic. EYES: Pupils equal and round. ENT: Mucosa pink and moist. NECK: Supple. Trachea midline. CARDIOVASCULAR: Regular rate and rhythm. No murmur appreciated. RESPIRATORY: No accessory muscle use. Clear to auscultation. Breath sounds equal bilaterally. GASTROINTESTINAL: Abdomen soft, non-tender, nondistended. Hepatic and splenic margins not palpable. Bowel sounds are active 4 quadrants. MUSCULOSKELETAL: No obvious deformities. No clubbing. No cyanosis. No edema. BACK: No CVA tenderness. NEUROLOGICAL: Awake and alert. Oriented 3. No obvious cranial nerve deficits. Motor grossly within normal limits. Normal speech. Moves all extremities. 5/5 strength to all extremities. PSYCHIATRIC: Flat affect. No delusional thought processes. No hallucinations. Data Data Last Documented VS Vital Signs Date Time Temp Pulse Resp B/P (MAP) Pulse Ox O2 Delivery O2 Flow Rate FiO2 09/01/17 16:33 99.4 95 18 108/73 (85) 97 Room Air Orders Orders Complete Blood Count With Diff (09/01/17 15:54) Comprehensive Metabolic Panel (09/01/17 15:54) Urinalysis - C+S If Indicated (09/01/17 15:54) Psych Screen (09/01/17 15:54) Drug Screen, Random Urine (09/01/17 15:54) Alcohol (Ethanol) (09/01/17 15:54) Salicylates (Aspirin) (09/01/17 15:54) Tylenol (Acetaminophen) (09/01/17 15:54) Diet Regular Basic (09/01/17 Dinner) Labs Laboratory Tests Test 09/01/17 16:00 09/01/17 16:25 Urine Color YELLOW Urine Turbidity CLEAR Urine pH 7.0 Urine Specific [place] 1.018 Urine Protein NEG mg/dL Urine Glucose (UA) NEG mg/dL Urine Ketones NEG mg/dL Urine Occult Blood NEG Urine Nitrite NEG Urine Bilirubin NEG Urine Urobilinogen 2.0 MG/DL Urine Leukocyte Esterase NEG Urine RBC 1 /hpf Urine WBC LESS THAN 1 /hpf Microscopic Urinalysis Comment CULT NOT INDICATED Urine Opiates Screen NEG Urine Barbiturates Screen NEG Urine Amphetamines Screen NEG Urine Benzodiazepines Screen NEG Urine Cocaine Screen NEG Urine Cannabinoids Screen NEG White Blood Count 6.4 TH/MM3 Red Blood Count 4.02 MIL/MM3 Hemoglobin 13.1 GM/DL Hematocrit 39.2 % Mean Corpuscular Volume 97.5 FL Mean Corpuscular Hemoglobin 32.5 PG Mean Corpuscular Hemoglobin Concent 33.4 % Red Cell Distribution Width 14.4 % Platelet Count 169 TH/MM3 Mean Platelet Volume 9.9 FL Neutrophils (%) (Auto) 62.1 % Lymphocytes (%) (Auto) 26.7 % Monocytes (%) (Auto) 9.8 % Eosinophils (%) (Auto) 1.1 % Basophils (%) (Auto) 0.3 % Neutrophils # (Auto) 4.0 TH/MM3 Lymphocytes # (Auto) 1.7 TH/MM3 Monocytes # (Auto) 0.6 TH/MM3 Eosinophils # (Auto) 0.1 TH/MM3 Basophils # (Auto) 0.0 TH/MM3 CBC Comment DIFF FINAL Differential Comment Blood Urea Nitrogen 16 MG/DL Creatinine 0.59 MG/DL Random Glucose 76 MG/DL Total Protein 6.9 GM/DL Albumin 3.5 GM/DL Calcium Level 8.1 MG/DL Alkaline Phosphatase 77 U/L Aspartate Amino Transf (AST/SGOT) 32 U/L Alanine Aminotransferase (ALT/SGPT) 27 U/L Total Bilirubin 0.2 MG/DL Sodium Level 130 MEQ/L Potassium Level 4.1 MEQ/L Chloride Level 91 MEQ/L Carbon Dioxide Level 36.0 MEQ/L Anion Gap 3 MEQ/L Estimat Glomerular Filtration Rate 107 ML/MIN Salicylates Level LESS THAN 1.7 MG/DL Acetaminophen Level LESS THAN 2.0 MCG/ML Ethyl Alcohol Level LESS THAN 3 MG/DL MDM Medical Decision Making Medical Screen Exam Complete: Yes Emergency Medical Condition: Yes Medical Record Reviewed: Yes Differential Diagnosis Medical clearance for psychiatric admission, mood disorder, schizophrenia Narrative Course Patient presents under [facility]. Physical examination and vital signs are essentially unremarkable. Patient has no medical complaints to report. Psych screen has been ordered. If the laboratory results are unremarkable, the patient will be medically cleared for psychiatric evaluation and disposition. 1710: CBC unremarkable. Sodium 130 and is consistent with past sodium levels. Urinalysis without signs of infection. Diagnosis Primary Impression: Medical clearance for psychiatric admission Condition: Stable StephaniaMary DAWSON Sep 01, 2017 16:17
[2017-09-01 16:33] VITALS: BP 108/73; PULSE 95; RESP 18; TEMP 99.4; O2SAT 97
[2017-09-01 16:36] LABS: BILIRUBIN, URINE NEG (NEG); BLOOD, URINE NEG (NEG); GLUCOSE,URINE NEG (NEG); KETONE, URINE NEG (NEG); NITRITE,URINE NEG (NEG); URINE COLOR YELLOW (YELLW/STRAW); URINE LEUKOCYTE ESTERASE NEG (NEG)
[2017-09-01 16:39] LABS: BASOPHIL % 0.3 % (0.0-2.0); EOSINOPHIL # 0.1 TH/MM3 (0-0.4); EOSINOPHIL % 1.1 % (0.0-4.0); HEMATOCRIT 39.2 % (35.0-46.0); HEMOGLOBIN 13.1 GM/DL (11.6-15.3); LYMPH % 26.7 % (9.0-44.0); LYMPHOCYTE # 1.7 TH/MM3 (1.0-4.8); MEAN CELL VOLUME 97.5 FL (80.0-100.0); MEAN CORPUSCULAR HEMOGLOBIN 32.5 PG (27.0-34.0); MEAN CORPUSCULAR HGB CONC 33.4 % (32.0-36.0); MEAN PLATELET VOLUME 9.9 FL (7.0-11.0); MONO % 9.8 % (0.0-8.0); MONOCYTE # 0.6 TH/MM3 (0-0.9); NEUT % 62.1 % (16.0-70.0); PLATELET COUNT 169 TH/MM3 (150-450); RED BLOOD COUNT 4.02 MIL/MM3 (4.00-5.30); RED CELL DISTRIBUTION WIDTH 14.4 % (11.6-17.2); WHITE BLOOD COUNT 6.4 TH/MM3 (4.0-11.0)
[2017-09-01 16:57] LABS: ALBUMIN 3.5 GM/DL (3.4-5.0); ALT (GPT) 27 U/L (10-53); AST (GOT) 32 U/L (15-37); BLOOD UREA NITROGEN 16 MG/DL (7-18); CALCIUM 8.1 MG/DL (8.5-10.1); CHLORIDE 91 MEQ/L (98-107); CREATININE 0.59 MG/DL (0.50-1.00); GLOMERULAR FILTRATION RATE 107 ML/MIN (>89); GLUCOSE,RANDOM 76 MG/DL (74-106); SODIUM (NA) 130 MEQ/L (136-145)
[2017-09-01] MEDS ORDERED: DIVA125C PO (16:57)
[2017-09-01] MEDS ORDERED: DIPH25CA PO (16:57)
[2017-09-01] MEDS ORDERED: TUSSLIQ3 PO (16:57)
[2017-09-01] MEDS ORDERED: FLUP2.5T PO (16:57)
[2017-09-01] MEDS ORDERED: LACT10SO5 PO (16:57)
[2017-09-01 17:00] LABS: ACETAMINOPHEN LESS THAN 2.0 MCG/ML (10.0-30.0); ALKALINE PHOSPHATASE 77 U/L (45-117); TOTAL BILIRUBIN ADULT 0.2 MG/DL (0.2-1.0); TOTAL PROTEIN 6.9 GM/DL (6.4-8.2)
[2017-09-01] MEDS ORDERED: PILL SPLITTER OTHER PRN (19:15)
[2017-09-01] MEDS ORDERED: LORazepam 1 MG TAB PO PRN (19:15)
[2017-09-01 20:20] VITALS: PULSE 114; RESP 16; TEMP 97.2; O2SAT 99
[2017-09-01] MEDS ORDERED: BUDESONIDE-FORMOTEROL 80/4.5 MCG INHALER INH SCH (21:00)
[2017-09-01] MEDS: OXcarbazepine 300 MG TAB PO SCH (21:00)
[2017-09-01] MEDS: DIVALPROEX SODIUM E.R. 500 MG TAB PO SCH (21:00)
[2017-09-01] MEDS ORDERED: diphenhydrAMINE HCL 25 MG CAP PO SCH (21:00)
[2017-09-01] MEDS ORDERED: TRIAMCINOLONE ACETONIDE 0.1% CREAM 15 GM TOPICAL PRN (21:00)
[2017-09-01] MEDS ORDERED: ATORVASTATIN 10 MG TAB PO SCH (21:00)
[2017-09-01] MEDS: LACTULOSE SYRUP 20 GM/30 ML CUP PO SCH (21:00)
[2017-09-01] MEDS ORDERED: DIVALPROEX SODIUM SPRINKLES 125 MG CAP PO SCH (21:00)
[2017-09-01 21:45] VITALS: BP 127/66; PULSE 84; RESP 18; O2SAT 95
[2017-09-02 06:00] VITALS: BP 130/82; PULSE 86; RESP 17; TEMP 98.2
[2017-09-02 08:28] LABS: BICARBONATE 35.9 MEQ/L (21.0-32.0); BLOOD UREA NITROGEN 13 MG/DL (7-18); CALCIUM 8.6 MG/DL (8.5-10.1); CHLORIDE 95 MEQ/L (98-107); CHOLESTEROL 140 MG/DL (120-200); CHOLESTEROL/ HDL RATIO 1.86 RATIO; GLOMERULAR FILTRATION RATE 129 ML/MIN (>89); GLUCOSE,RANDOM 79 MG/DL (74-106); HDL CHOLESTEROL 75.1 MG/DL (40.0-60.0); LDL CHOLESTEROL 55 MG/DL (0-99); SODIUM (NA) 135 MEQ/L (136-145); TRIGLYCERIDES 50 MG/DL (42-150)
[2017-09-02] MEDS: DIVALPROEX SODIUM E.R. 500 MG TAB PO SCH ×2 (09:00→22:11)
[2017-09-02] MEDS ORDERED: ASPIRIN EC 81 MG TABEC PO SCH (09:00)
[2017-09-02] MEDS ORDERED: METOPROLOL TARTRATE 25 MG TAB PO SCH (09:00)
[2017-09-02] MEDS ORDERED: CETIRIZINE HCL 10 MG TAB PO SCH (09:00)
[2017-09-02] MEDS ORDERED: hydrOXYzine HCL 50 MG TAB PO PRN (09:45)
[2017-09-02] MEDS: LACTULOSE SYRUP 20 GM/30 ML CUP PO SCH ×2 (10:08→22:11)
--- NOTE | 2017-09-02 10:09 | HHI.HP ---
Provisional Diagnosis Admission Date Sep 01, 2017 at 18:18 [place] I. Schizophrenia chronic paranoid type f 20.0 Certification of Person's Competence To Provide Express and Informed Consent I have personally examined Libra Saucedo , a person being served at [facility] [[email or web address]] on, Sep 02, 2017 09:49. Express and informed consent means consent voluntarily given in writing, by a competent person, after sufficient explanation and disclosure of the subject matter involved to enable the person to make a knowing and willful decision without any element of force, fraud, deceit, duress, or other form of constraint or coercion. This person is 18 years of age or older, is not now known to be incompetent to consent to treatment with a guardian advocate, and does not have a health care surrogate or proxy currently making medical treatment decisions. I have found this person to be one of the following: [] Competent to provide express and informed consent, as defined above, for voluntary admission to this facility and is competent to provide express and informed consent for treatment. He/she has the consistent capacity to make well reasoned, willful, and knowing decisions concerning his or her medical or mental health treatment. The person fully and consistently understands the purpose of the admission for examination/placement and is fully capable of personally exercising all rights assured [place] Incompetent to provide express and informed consent to voluntary admission, and this is incompetent to provide express and informed consent to treatment. The person must be transferred to involuntary status and a petition for a guardian advocate filed with the Circuit Court. [xxx] Refusing to provide express and informed consent to voluntary admission but is competent to provide express and informed consent for treatment. The person must be discharged or transferred to involuntary status. Form shall be completed within 24 hours of a person's arrival at the receiving facility and filed in the clinical record of each person: 1. Admitted on a voluntary basis 2. Permitted to provide express and informed consent to his/her own treatment 3. Allowed to transfer from involuntary to voluntary status 4. Prior to permitting a person to consent to his or her own treatment after having been previously found incompetent to consent to treatment. History of Present Illness Capacity: Lacks Capacity Psych Chief Complaint: patient psychotic delusional with self-injurious behaviors and aggressive b HPI Patient is a 50-year-old white female well-known was multiple prior hospitalizations be hospitalized here at 08/26/17 through 08/30/17 of the medical side for pneumonia with visit [phone] patient was discharged back to her long-term assisted. [facility]. It appears patient became more out of control as that facility becoming paranoid delusional angry with outbursts and aggressive behavior harm herself harming property. She vague compliance medication. Was brought to the ED under an ex parte signed by Veterinary Medicine Doctor Bisi Sanchez dated August. Review of EMR shows in 2017 patient is had 13 visits through our ED, 9 which were psychiatric in nature. At the present time patient seen in her room with nurse arnaud, patient is quite psychotic intrusive for the manic type overlay. She is loud with rapid pressured speech. Disorganized and delusional. Stating she just had lunch with Pres. Garvey and he wants to resign because he can handle his job anymore. She also somewhat grandiose related to her living situation. States she cannot talk about the past but willing talk what the future. She has had issues in the past with her roommates getting loud intrusive and irritable oriented times self-injurious. She has had his shown some noncompliance with medications also. She does deny voices this time she appears to be responding to internal stimuli. At this time patient does meet criteria for involuntary acute inpatient psychiatric hospitalization. I'll do first opinion request second opinion. For full chest capacity is significant for her medications. Will also request a Hospitalist consult was concerning multiple medical issues and her recent pneumonia. Concerning the multiplicity of her admits contacts. Jerod this past year I feel patient may need further long-term stay at the [facility] thus I will initiate a state referral packet Review of Systems ROS Limitations: Altered Mental Status Constitutional: DENIES: Diaphoretic episodes, Fatigue, Fever, Weight gain, Weight loss, Chills, Dizziness, Change in appetite, Night Sweats Endocrine: DENIES: Abnorml menstrual pattern, Heat/cold intolerance, Polydipsia , Polyuria, Polyphagia Eyes: DENIES: Blurred vision, Diplopia, Eye inflammation, Eye pain, Vision loss , Photosensitivity, Double Vision Ears, nose, mouth, throat: DENIES: Tinnitus, Hearing loss, Vertigo, Nasal discharge, Oral lesions, Throat pain, Hoarseness, Ear Pain, Running Nose, Epistaxis, Sinus Pain, Toothache, Odynophagia Respiratory: DENIES: Apneas, Cough, Snoring, Wheezing, Hemoptysis, Sputum production, Shortness of breath Cardiovascular: DENIES: Chest pain, Palpitations, Syncope, Dyspnea on Exertion , PND, Lower Extremity Edema, Orthopnea, Claudication Gastrointestinal: DENIES: Abdominal pain, Black stools, Bloody stools, Constipation, Diarrhea, Nausea, Vomiting, Difficulty Swallowing, Anorexia Genitourinary: DENIES: Abnormal vaginal bleeding, Dysmenorrhea, Dyspareunia, Sexual dysfunction, Urinary frequency, Urinary incontinence, Urgency, Hematuria , Dysuria, Nocturia, Vaginal discharge Musculoskeletal: DENIES: Joint pain, Muscle aches, Stiffness, Joint Swelling, Back pain, Neck pain Integumentary: DENIES: Abnormal pigmentation, Pruritus, Rash, Nail changes, Breast masses, Breast skin changes, Nipple discharge Hematologic/lymphatic: DENIES: Bruising, Lymphadenopathy Immunologic/allergic: DENIES: Eczema, Urticaria Neurologic: DENIES: Abnormal gait, Headache, Localized weakness, Paresthesias, Seizures, Speech Problems, Tremor, Poor Balance Psychiatric: COMPLAINS OF: Anxiety, Confusion, Mood changes, Hallucinations, Agitation, Suicidal Ideation, Delusions Past Psych History Psychological trauma history Unknown at this time due to patient's altered mental status Violence risk - others (6 mos) Patient was somewhat hospital with other residents at a assisted Violence risk - self (6 mos) Moderate patient had self-injurious behaviors at the assisted Substance Abuse History Drugs/Alcohol past 12 months Denies Past Family Social History Coded Allergies: haloperidol (Unverified Allergy, Unknown, 05/25/17) Per MAR sent by [facility]. Active Scripts Cetirizine (Cetirizine) 10 Mg Tab, 10 MG PO DAILY for health for 30 Days, #30 TAB Prov:Parrish Beal MD 07/02/17 Triamcinolone Topical (Triamcinolone Topical) 0.1 % Oint, 1 APPLIC TOPICAL BID for health for 30 Days, #1 TUBE Prov:Parrish Beal MD 06/15/17 Budesonide-Formoterol Inh (Symbicort Inh) 80-4.5 Mcg/Act Aero, 1 PUFF INH Q12HR for health, #1 INHALER 0 Refills Prov:Kt Bruce MD 03/08/17 Oxcarbazepine (Oxcarbazepine) 300 Mg Tab, 300 MG PO BID for health, #60 TAB 0 Refills Prov:Kt Bruce MD 01/20/17 Divalproex ER (Depakote ER) 500 Mg Mila, 500 MG PO BID for health, #60 TAB 0 Refills Prov:Kt Bruce MD 01/20/17 Reported Medications Diphenhydramine (Diphenhydramine) 25 Mg Cap, 25 MG PO HS, CAP 0 Refills 09/01/17 Dextromethorphan-Guaifenesin (Tussin Dm 100-10 mg/5Ml) 100 Mg-10 Mg/5 Ml Liq, 10 ML PO Q6HR Y for COUGH 09/01/17 Lactulose (Lactulose) 10 Gram/15 Ml (15 Ml) Solution, 20 ML PO BID 09/01/17 Fluphenazine (Fluphenazine) 2.5 Mg Tab, 2.5 MG PO QID 09/01/17 Divalproex Sprinkles (Depakote Sprinkles) 125 mg Cap, 125 MG PO HS for Control Seizures, #60 CAP 0 Refills 09/01/17 Sodium Chloride (Sodium Chloride) 1 Gram Tab, 1 GM PO DAILY for Electrolyte Replacement, TAB 0 Refills 08/26/17 Risperidone Inj (Risperdal Consta Inj) 50 Mg/2 Ml Inj, 50 MG IM Q14D, VIAL 0 Refills 08/26/17 Metoprolol Tartrate (Metoprolol Tartrate) 25 Mg Tab, 12.5 MG PO DAILY, TAB 0 Refills 08/26/17 Atorvastatin (Atorvastatin) 10 Mg Tab, 10 MG PO HS for Cholesterol Management, TAB 0 Refills 08/26/[address] (Aspirin EC) 81 Mg Tabdr, 81 MG PO DAILY, TAB 0 Refills 08/26/17 Discontinued Reported Medications Divalproex ER (Divalproex ER) 250 Mg Mila, 125 MG PO DAILY for Control Seizures , TAB 0 Refills 08/26/17 Alendronate (Alendronate) 70 Mg Tab, 70 MG PO Q7D ON FRIDAYS for Osteporosis Treatment, #4 TAB 0 Refills 01/13/17 Quetiapine (Seroquel) 100 Mg Tab, 100 MG PO BID, TAB 0 Refills 08/26/17 Quetiapine (Seroquel) 200 Mg Tab, 200 MG PO HS, TAB 0 Refills 08/26/17 Quetiapine (Seroquel) 200 Mg Tab, 200 MG PO HS, #30 TAB 0 Refills 05/25/17 Quetiapine (Seroquel) 100 Mg Tab, 100 MG PO DAILY, #30 TAB 0 Refills 05/25/17 Discontinued Scripts Risperidone (Risperdal) 3 Mg Tab, 3 MG PO Q12HR for Psychosis, #62 TAB Prov:Avani Pearl MD 08/30/17 Olanzapine Odt (Zyprexa Zydis) 10 Mg Tab, 10 MG PO BID for Psychosis, #30 TAB Prov:Avani Pearl MD 08/30/17 Levofloxacin (Levaquin) 750 Mg Tablet, 750 MG PO DAILY@0500 for Infection, #2 TAB Prov:Avani Pearl MD 08/30/17 Prednisone (Prednisone) 20 Mg Tab, 40 MG PO DAILY, #8 TAB 0 Refills Take 40 mg (2 tablets) daily for 5 days Prov:Muriel Richard MD 08/26/17 [guaiFENesin ER] 600 MG TABCR No Conflict Check, 600 MG PO BID for health for 15 Days, #30 Prov:Parrish Beal MD 07/02/17 Divalproex ER (Depakote ER) 500 Mg Mila, 500 MG PO BID@0900,1300 for health for 30 Days, #60 TAB Prov:Parrish Beal MD 07/02/17 Cephalexin (Cephalexin) 500 Mg Cap, 500 MG PO Q12HR for health for 5 Days, #10 CAP Prov:Parrish Beal MD 07/02/17 [Lactulose Liq] 30 ML SYRP No Conflict Check, 20 ML PO BID for health for 30 Days, #1 BOTTLE Prov:Parrish Beal MD 07/02/17 Triamcinolone Topical (Triamcinolone Topical) 0.1% Cream, 1 APPLIC TOPICAL BID for health for 30 Days, #1 TUBE Prov:Parrish Beal MD 07/02/17 Budesonide-Formoterol Inh (Symbicort Inh) 80-4.5 Mcg/Act Aero, 1 PUFF INH Q12HR for health for 30 Days, #1 INHALER Prov:Parrish Beal MD 07/02/17 Risperidone (Risperdal) 3 Mg Tab, 3 MG PO Q12HR for health for 15 Days, #30 TAB Prov:Parrish Beal MD 07/02/17 Oxcarbazepine (Oxcarbazepine) 300 Mg Tab, 300 MG PO BID for health for 30 Days, #60 TAB Prov:Parrish Beal MD 07/02/17 Divalproex ER (Depakote ER) 250 Mg Mila, 250 MG PO HS for health for 30 Days, # 30 TAB Prov:Parrish Beal MD 07/02/17 Metoprolol Tartrate (Metoprolol Tartrate) 25 Mg Tab, 12.5 MG PO BID for health for 30 Days, #30 TAB Prov:Parrish Beal MD 07/02/17 Pravastatin (Pravachol) 20 Mg Tab, 20 MG PO HS for health for 30 Days, #30 TAB Prov:Parrish Beal MD 07/02/17 [Lactulose Liq] 30 ML SYRP No Conflict Check, 20 ML PO BID for health for 30 Days, #1 BOTTLE Prov:Parrish Beal MD 06/15/17 Risperidone (Risperidone) 4 Mg Tab, 4 MG PO HS for health, #30 TAB 0 Refills Prov:Parrish Beal MD 06/15/17 Risperidone (Risperidone) 3 Mg Tab, 3 MG PO DAILY for health, #30 TAB 0 Refills Prov:Parrish Beal MD 06/15/17 Oxcarbazepine (Oxcarbazepine) 300 Mg Tab, 300 MG PO BID for health for 30 Days, #60 TAB Prov:Parrish Beal MD 06/15/17 Divalproex ER (Depakote ER) 500 Mg Mila, 500 MG PO BID for health for 30 Days, #60 TAB Prov:Parrish Beal MD 06/15/17 Divalproex ER (Depakote ER) 250 Mg Mila, 250 MG PO HS for health for 30 Days, # 30 TAB Prov:Parrish Beal MD 06/15/17 Metoprolol Tartrate (Metoprolol Tartrate) 25 Mg Tab, 12.5 MG PO BID for health for 30 Days, #15 TAB Prov:Parrish Beal MD 06/15/17 Pravastatin (Pravachol) 20 Mg Tab, 20 MG PO HS for health for 30 Days, #30 TAB Prov:Parrish Beal MD 06/15/17 Cetirizine (Cetirizine) 10 Mg Tab, 10 MG PO DAILY for health for 30 Days, #30 TAB Prov:Parrish Beal MD 06/15/17 Pravastatin (Pravachol) 20 Mg Tab, 20 MG PO HS for health, #30 TAB 0 Refills Prov:Kt Bruce MD 05/19/17 Divalproex ER (Depakote ER) 250 Mg Mila, 250 MG PO HS for health, #30 TAB 0 Refills Prov:Kt Bruce MD 05/19/17 Cetirizine (Cetirizine) 10 Mg Tab, 10 MG PO DAILY for health, #10 TAB 0 Refills Prov:Kt Bruce MD 05/19/17 Metoprolol Tartrate (Metoprolol Tartrate) 25 Mg Tab, 12.5 MG PO 1/2 bid for health, #30 TAB 0 Refills Prov:Kt Bruce MD 03/08/17 Escitalopram (Escitalopram) 20 Mg Tab, 20 MG PO DAILY for health, #30 TAB 0 Refills Prov:Kt Bruce MD 01/20/17 Current Medications Medications (Trade) Dose Ordered Sig/Sae Route Start Time Stop Time Status Last Admin (Ativan) 1 mg Q6H PRN PO 09/01/17 19:15 (Trileptal) 300 mg BID PO 09/01/17 21:00 (Symbicort 80-4.5 Mcg Inh) 1 puff Q12HR INH 09/01/17 21:00 (Prolixin) 2.5 mg QID PO 09/01/17 21:00 (Pill Splitter) 1 ea UNSCH PRN OTHER 09/01/17 19:15 (Lactulose Liq) 20 ml BID PO 09/01/17 21:00 (Benadryl) 25 mg HS PO 09/01/17 21:00 (ZyrTEC) 10 mg DAILY PO 09/02/17 09:00 (Ecotrin Ec) 81 mg DAILY PO 09/02/17 09:00 (Lipitor) 10 mg HS PO 09/01/17 21:00 (Lopressor) 12.5 mg DAILY PO 09/02/17 09:00 (Depakote Er) 500 mg BID PO 09/01/17 21:00 (Depakote Sprinkles) 125 mg HS PO 09/01/17 21:00 (Aristocort 0.1% Cream) 1 applic BID PRN TOPICAL 09/01/17 21:00 (Aristocort 0.1% Cream) 1 applic BID PRN EXTERNAL 09/01/17 21:30 Family Psych History Unknown at this time due to patient's altered mental status Social History Patient has been living in [facility] for a number of years Patient's Strengths (min. 2) Patient verbal able to access health care Physical Exam Patient seen screened in ED exam reviewed and agreed wit patient seen in her room. She is in no acute distress, no respiratory distress, no complaints of abdominal pain. Patient moves all 4 extremities without difficulty. Patient is mild oral buccal movements and may be mild tardive in nature Vital Signs Vital Signs Date Time Temp Pulse Resp B/P (MAP) Pulse Ox O2 Delivery O2 Flow Rate FiO2 09/02/17 06:00 98.2 86 17 130/82 (98) 09/01/17 21:45 95 09/01/17 16:33 Room Air Lab Results Test 09/01/17 16:00 09/01/17 16:25 09/02/17 06:38 Urine Color YELLOW Urine Turbidity CLEAR Urine pH 7.0 Urine Specific [place] 1.018 Urine Protein NEG mg/dL Urine Glucose (UA) NEG mg/dL Urine Ketones NEG mg/dL Urine Occult Blood NEG Urine Nitrite NEG Urine Bilirubin NEG Urine Urobilinogen 2.0 MG/DL Urine Leukocyte Esterase NEG Urine RBC 1 /hpf Urine WBC LESS THAN 1 /hpf Microscopic Urinalysis Comment CULT NOT INDICATED Urine Opiates Screen NEG Urine Barbiturates Screen NEG Urine Amphetamines Screen NEG Urine Benzodiazepines Screen NEG Urine Cocaine Screen NEG Urine Cannabinoids Screen NEG White Blood Count 6.4 TH/MM3 Red Blood Count 4.02 MIL/MM3 Hemoglobin 13.1 GM/DL Hematocrit 39.2 % Mean Corpuscular Volume 97.5 FL Mean Corpuscular Hemoglobin 32.5 PG Mean Corpuscular Hemoglobin Concent 33.4 % Red Cell Distribution Width 14.4 % Platelet Count 169 TH/MM3 Mean Platelet Volume 9.9 FL Neutrophils (%) (Auto) 62.1 % Lymphocytes (%) (Auto) 26.7 % Monocytes (%) (Auto) 9.8 % Eosinophils (%) (Auto) 1.1 % Basophils (%) (Auto) 0.3 % Neutrophils # (Auto) 4.0 TH/MM3 Lymphocytes # (Auto) 1.7 TH/MM3 Monocytes # (Auto) 0.6 TH/MM3 Eosinophils # (Auto) 0.1 TH/MM3 Basophils # (Auto) 0.0 TH/MM3 CBC Comment DIFF FINAL Differential Comment Blood Urea Nitrogen 16 MG/DL 13 MG/DL Creatinine 0.59 MG/DL 0.50 MG/DL Random Glucose 76 MG/DL 79 MG/DL Total Protein 6.9 GM/DL Albumin 3.5 GM/DL Calcium Level 8.1 MG/DL 8.6 MG/DL Alkaline Phosphatase 77 U/L Aspartate Amino Transf (AST/SGOT) 32 U/L Alanine Aminotransferase (ALT/SGPT) 27 U/L Total Bilirubin 0.2 MG/DL Sodium Level 130 MEQ/L 135 MEQ/L Potassium Level 4.1 MEQ/L 5.2 MEQ/L Chloride Level 91 MEQ/L 95 MEQ/L Carbon Dioxide Level 36.0 MEQ/L 35.9 MEQ/L Anion Gap 3 MEQ/L 4 MEQ/L Estimat Glomerular Filtration Rate 107 ML/MIN 129 ML/MIN Salicylates Level LESS THAN 1.7 MG/DL Acetaminophen Level LESS THAN 2.0 MCG/ML Ethyl Alcohol Level LESS THAN 3 MG/DL Triglycerides Level 50 MG/DL Cholesterol Level 140 MG/DL LDL Cholesterol 55 MG/DL HDL Cholesterol 75.1 MG/DL Cholesterol/HDL Ratio 1.86 RATIO Mental Status Examination Appearance: Disheveled, Malodorous Consciousness: Alert Orientation: Person Motor Activity: Other (use his walker) Speech: Pressured, Rapid, Stuttering Language: Other (markedly disorganized) Fund of Knowledge: Inadequate Attention and Concentration: Other (poor) Memory: Impaired Mood: Angry, Sad, Anxious, Irritable Affect: Other (marked increase range of motion intensity) Thought Process & Associations: Disorganized Thought Content: Bizarre thinking Hallucination Type: Auditory (appears to be responding to internal stimuli) Delusion Type: Bizarre, Paranoid Suicidal Ideation: No Suicidal Plan: No Suicidal Intention: No Homicidal Ideation: No Homicidal Plan: No Homicidal Intention: No Insight: Poor Judgment: Poor Assessment & Plan Problem List: (1) Paranoid type schizophrenia, chronic state ICD Codes: F20.0 - Paranoid schizophrenia Status: Acute Assessment & Plan Estimated LOS: days patient is is quite psychotic delusional and paranoid, with no insight. Remains quite distraught with this. Was question of her compliance with medications. For now will continue medications per the med reconciliation. We will get a Depakote level tomorrow morning for a its level. Per the hospitalist consult was and we'll have psychiatry do second opinion supporting Arlyn lott. Considering patient's multiple visits and hospitalization here I will start state referral packet. Though hopefully patient would recover to the point where she can return to [facility] if that is still an option for her Discharge Planning See above Request HC Surrog/Guard Advoc?: No Kt Bruce MD Sep 02, 2017 10:09
[2017-09-02] MEDS: OXcarbazepine 300 MG TAB PO SCH ×2 (10:10→22:29)
[2017-09-02] MEDS ORDERED: FLUPHENAZINE 2.5 MG PO SCH (13:00)
--- NOTE | 2017-09-02 13:04 | PD.PSY.CON ---
Provisional Diagnosis Admission Date Sep 01, 2017 at 18:18 [place]. Schizophrenia chronic paranoid type f 20.0 History of Present Illness Service Psychiatry Consult Requested By Dr. Bruce Reason for Consult Second opinion Primary Care Physician Kael Sutton M.D. HPI Patient is a 50-year-old white female well-known was multiple prior hospitalizations be hospitalized here at 08/26/17 through 08/30/17 of the medical side for pneumonia with visit [id number] patient was discharged back to her long-term [facility]. It appears patient became more out of control as that facility becoming paranoid delusional angry with outbursts and aggressive behavior harm herself harming property. She vague compliance medication. Was brought to the ED under an ex parte signed by Judge Bisi Sanchez dated August. Review of EMR shows in 2017 patient is had 13 visits through our ED, 9 which were psychiatric in nature. At the present time patient seen in her room with nurse arnaud, patient is quite psychotic intrusive for the manic type overlay. She is loud with rapid pressured speech. Disorganized and delusional. Stating she just had lunch with [employer] and he wants to resign because he can handle his job anymore. She also somewhat grandiose related to her living situation. States she cannot talk about the past but willing talk what the future. She has had issues in the past with her roommates getting loud intrusive and irritable oriented times self-injurious. She has had his shown some noncompliance with medications also. She does deny voices this time she appears to be responding to internal stimuli. At this time patient does meet criteria for involuntary acute inpatient psychiatric hospitalization. I'll do first opinion request second opinion. For full chest capacity is significant for her medications. Will also request a Hospitalist consult was concerning multiple medical issues and her recent pneumonia. Concerning the multiplicity of her admits contacts. [place] this past year I feel patient may need further long-term stay at the [facility] thus I will initiate a state referral packet The patient is a 50 year-old white woman, domicile in a residential facility, she is very well-known by the Department due to her multiple psychiatric hospitalizations with a similar presentation. Consulted to me for second opinion. On evaluation patient is disorganized, disruptive, very talkative, no making any sense and making several paranoid statements. Review of Systems Except as stated in HPI: all other systems reviewed are Neg Past Family Social History Coded Allergies: haloperidol (Unverified Allergy, Unknown, 05/25/17) Per MAR sent by [facility]. Active Scripts Cetirizine (Cetirizine) 10 Mg Tab, 10 MG PO DAILY for health for 30 Days, #30 TAB Prov:Parrish Beal MD 07/02/17 Triamcinolone Topical (Triamcinolone Topical) 0.1 % Oint, 1 APPLIC TOPICAL BID for health for 30 Days, #1 TUBE Prov:Parrish Beal MD 06/15/17 Budesonide-Formoterol Inh (Symbicort Inh) 80-4.5 Mcg/Act Aero, 1 PUFF INH Q12HR for health, #1 INHALER 0 Refills Prov:Kt Bruce MD 03/08/17 Oxcarbazepine (Oxcarbazepine) 300 Mg Tab, 300 MG PO BID for health, #60 TAB 0 Refills Prov:Kt Bruce MD 01/20/17 Divalproex ER (Depakote ER) 500 Mg Mila, 500 MG PO BID for health, #60 TAB 0 Refills Prov:Kt Bruce MD 01/20/17 Reported Medications Diphenhydramine (Diphenhydramine) 25 Mg Cap, 25 MG PO HS, CAP 0 Refills 09/01/17 Dextromethorphan-Guaifenesin (Tussin Dm 100-10 mg/5Ml) 100 Mg-10 Mg/5 Ml Liq, 10 ML PO Q6HR Y for COUGH 09/01/17 Lactulose (Lactulose) 10 Gram/15 Ml (15 Ml) Solution, 20 ML PO BID 09/01/17 Fluphenazine (Fluphenazine) 2.5 Mg Tab, 2.5 MG PO QID 09/01/17 Divalproex Sprinkles (Depakote Sprinkles) 125 mg Cap, 125 MG PO HS for Control Seizures, #60 CAP 0 Refills 09/01/17 Sodium Chloride (Sodium Chloride) 1 Gram Tab, 1 GM PO DAILY for Electrolyte Replacement, TAB 0 Refills 08/26/17 Risperidone Inj (Risperdal Consta Inj) 50 Mg/2 Ml Inj, 50 MG IM Q14D, VIAL 0 Refills 08/26/17 Metoprolol Tartrate (Metoprolol Tartrate) 25 Mg Tab, 12.5 MG PO DAILY, TAB 0 Refills 08/26/17 Atorvastatin (Atorvastatin) 10 Mg Tab, 10 MG PO HS for Cholesterol Management, TAB 0 Refills 08/26/[address] (Aspirin EC) 81 Mg Tabdr, 81 MG PO DAILY, TAB 0 Refills 08/26/17 Discontinued Reported Medications Divalproex ER (Divalproex ER) 250 Mg Mila, 125 MG PO DAILY for Control Seizures , TAB 0 Refills 08/26/17 Alendronate (Alendronate) 70 Mg Tab, 70 MG PO Q7D ON FRIDAYS for Osteporosis Treatment, #4 TAB 0 Refills 01/13/17 Quetiapine (Seroquel) 100 Mg Tab, 100 MG PO BID, TAB 0 Refills 08/26/17 Quetiapine (Seroquel) 200 Mg Tab, 200 MG PO HS, TAB 0 Refills 08/26/17 Quetiapine (Seroquel) 200 Mg Tab, 200 MG PO HS, #30 TAB 0 Refills 05/25/17 Quetiapine (Seroquel) 100 Mg Tab, 100 MG PO DAILY, #30 TAB 0 Refills 05/25/17 Discontinued Scripts Risperidone (Risperdal) 3 Mg Tab, 3 MG PO Q12HR for Psychosis, #62 TAB Prov:Avani Pearl MD 08/30/17 Olanzapine Odt (Zyprexa Zydis) 10 Mg Tab, 10 MG PO BID for Psychosis, #30 TAB Prov:Avani Pearl MD 08/30/17 Levofloxacin (Levaquin) 750 Mg Tablet, 750 MG PO DAILY@0500 for Infection, #2 TAB Prov:Avani Pearl MD 08/30/17 Prednisone (Prednisone) 20 Mg Tab, 40 MG PO DAILY, #8 TAB 0 Refills Take 40 mg (2 tablets) daily for 5 days Prov:Muriel Richard MD 08/26/17 [guaiFENesin ER] 600 MG TABCR No Conflict Check, 600 MG PO BID for health for 15 Days, #30 Prov:Parrish Beal MD 07/02/17 Divalproex ER (Depakote ER) 500 Mg Mila, 500 MG PO BID@0900,1300 for health for 30 Days, #60 TAB Prov:Parrish Beal MD 07/02/17 Cephalexin (Cephalexin) 500 Mg Cap, 500 MG PO Q12HR for health for 5 Days, #10 CAP Prov:Parrish Beal MD 07/02/17 [Lactulose Liq] 30 ML SYRP No Conflict Check, 20 ML PO BID for health for 30 Days, #1 BOTTLE Prov:Parrish Beal MD 07/02/17 Triamcinolone Topical (Triamcinolone Topical) 0.1% Cream, 1 APPLIC TOPICAL BID for health for 30 Days, #1 TUBE Prov:Parrish Beal MD 07/02/17 Budesonide-Formoterol Inh (Symbicort Inh) 80-4.5 Mcg/Act Aero, 1 PUFF INH Q12HR for health for 30 Days, #1 INHALER Prov:Parrish Beal MD 07/02/17 Risperidone (Risperdal) 3 Mg Tab, 3 MG PO Q12HR for health for 15 Days, #30 TAB Prov:Parrish Beal MD 07/02/17 Oxcarbazepine (Oxcarbazepine) 300 Mg Tab, 300 MG PO BID for health for 30 Days, #60 TAB Prov:Parrish Beal MD 07/02/17 Divalproex ER (Depakote ER) 250 Mg Mila, 250 MG PO HS for health for 30 Days, # 30 TAB Prov:Parrish Beal MD 07/02/17 Metoprolol Tartrate (Metoprolol Tartrate) 25 Mg Tab, 12.5 MG PO BID for health for 30 Days, #30 TAB Prov:Parrish Beal MD 07/02/17 Pravastatin (Pravachol) 20 Mg Tab, 20 MG PO HS for health for 30 Days, #30 TAB Prov:Parrish Beal MD 07/02/17 [Lactulose Liq] 30 ML SYRP No Conflict Check, 20 ML PO BID for health for 30 Days, #1 BOTTLE Prov:Parrish Beal MD 06/15/17 Risperidone (Risperidone) 4 Mg Tab, 4 MG PO HS for health, #30 TAB 0 Refills Prov:Parrish Beal MD 06/15/17 Risperidone (Risperidone) 3 Mg Tab, 3 MG PO DAILY for health, #30 TAB 0 Refills Prov:Parrish Beal MD 06/15/17 Oxcarbazepine (Oxcarbazepine) 300 Mg Tab, 300 MG PO BID for health for 30 Days, #60 TAB Prov:Parrish Beal MD 06/15/17 Divalproex ER (Depakote ER) 500 Mg Mila, 500 MG PO BID for health for 30 Days, #60 TAB Prov:Parrish Beal MD 06/15/17 Divalproex ER (Depakote ER) 250 Mg Mila, 250 MG PO HS for health for 30 Days, # 30 TAB Prov:Parrish Beal MD 06/15/17 Metoprolol Tartrate (Metoprolol Tartrate) 25 Mg Tab, 12.5 MG PO BID for health for 30 Days, #15 TAB Prov:Parrish Beal MD 06/15/17 Pravastatin (Pravachol) 20 Mg Tab, 20 MG PO HS for health for 30 Days, #30 TAB Prov:Parrish Beal MD 06/15/17 Cetirizine (Cetirizine) 10 Mg Tab, 10 MG PO DAILY for health for 30 Days, #30 TAB Prov:Parrish Beal MD 06/15/17 Pravastatin (Pravachol) 20 Mg Tab, 20 MG PO HS for health, #30 TAB 0 Refills Prov:Kt Bruce MD 05/19/17 Divalproex ER (Depakote ER) 250 Mg Mila, 250 MG PO HS for health, #30 TAB 0 Refills Prov:Kt Bruce MD 05/19/17 Cetirizine (Cetirizine) 10 Mg Tab, 10 MG PO DAILY for health, #10 TAB 0 Refills Prov:Kt Bruce MD 05/19/17 Metoprolol Tartrate (Metoprolol Tartrate) 25 Mg Tab, 12.5 MG PO 1/2 bid for health, #30 TAB 0 Refills Prov:Kt Bruce MD 03/08/17 Escitalopram (Escitalopram) 20 Mg Tab, 20 MG PO DAILY for health, #30 TAB 0 Refills Prov:Kt Bruce MD 01/20/17 Current Medications Medications (Trade) Dose Ordered Sig/Sae Route Start Time Stop Time Status Last Admin (Ativan) 1 mg Q6H PRN PO 09/01/17 19:15 (Prolixin) 2.5 mg QID PO 09/01/17 21:00 09/02/17 10:09 (Pill Splitter) 1 ea UNSCH PRN OTHER 09/01/17 19:15 (Lactulose Liq) 20 ml BID PO 09/01/17 21:00 09/02/17 10:08 (Aristocort 0.1% Cream) 1 applic BID PRN EXTERNAL 09/01/17 21:30 (Habitrol 21 Mg Patch.24 Hr) 1 patch DAILY T-DERMAL 09/03/17 09:00 (Atarax) 50 mg Q6H PRN PO 09/02/17 09:45 (Ecotrin Ec) 81 mg DAILY PO 09/03/17 09:00 (Lipitor) 10 mg HS PO 09/02/17 21:00 (Symbicort 80-4.5 Mcg Inh) 1 puff Q12HR INH 09/02/17 21:00 (ZyrTEC) 10 mg DAILY PO 09/03/17 09:00 (Benadryl) 25 mg HS PO 09/02/17 21:00 (Depakote Er) 500 mg BID PO 09/02/17 21:00 (Depakote Sprinkles) 125 mg HS PO 09/02/17 21:00 (Lopressor) 12.5 mg DAILY PO 09/03/17 09:00 (Trileptal) 300 mg BID PO 09/02/17 21:00 (RisperDAL CONSTA INJ) 50 mg Q14D IM 09/02/17 11:00 (Sodium Chloride) 1 gm DAILY PO 09/03/17 09:00 (Aristocort 0.1% Oint) 1 applic BID TOPICAL 09/02/17 21:00 Patient's Strengths (min. 2) Patient verbal able to access health care Physical Exam Vital Signs Vital Signs Date Time Temp Pulse Resp B/P (MAP) Pulse Ox O2 Delivery O2 Flow Rate FiO2 09/02/17 06:00 98.2 86 17 130/82 (98) 09/01/17 21:45 95 09/01/17 16:33 Room Air Lab Results Test 09/01/17 16:00 09/01/17 16:25 09/02/17 06:38 Urine Color YELLOW Urine Turbidity CLEAR Urine pH 7.0 Urine Specific [place] 1.018 Urine Protein NEG mg/dL Urine Glucose (UA) NEG mg/dL Urine Ketones NEG mg/dL Urine Occult Blood NEG Urine Nitrite NEG Urine Bilirubin NEG Urine Urobilinogen 2.0 MG/DL Urine Leukocyte Esterase NEG Urine RBC 1 /hpf Urine WBC LESS THAN 1 /hpf Microscopic Urinalysis Comment CULT NOT INDICATED Urine Opiates Screen NEG Urine Barbiturates Screen NEG Urine Amphetamines Screen NEG Urine Benzodiazepines Screen NEG Urine Cocaine Screen NEG Urine Cannabinoids Screen NEG White Blood Count 6.4 TH/MM3 Red Blood Count 4.02 MIL/MM3 Hemoglobin 13.1 GM/DL Hematocrit 39.2 % Mean Corpuscular Volume 97.5 FL Mean Corpuscular Hemoglobin 32.5 PG Mean Corpuscular Hemoglobin Concent 33.4 % Red Cell Distribution Width 14.4 % Platelet Count 169 TH/MM3 Mean Platelet Volume 9.9 FL Neutrophils (%) (Auto) 62.1 % Lymphocytes (%) (Auto) 26.7 % Monocytes (%) (Auto) 9.8 % Eosinophils (%) (Auto) 1.1 % Basophils (%) (Auto) 0.3 % Neutrophils # (Auto) 4.0 TH/MM3 Lymphocytes # (Auto) 1.7 TH/MM3 Monocytes # (Auto) 0.6 TH/MM3 Eosinophils # (Auto) 0.1 TH/MM3 Basophils # (Auto) 0.0 TH/MM3 CBC Comment DIFF FINAL Differential Comment Blood Urea Nitrogen 16 MG/DL 13 MG/DL Creatinine 0.59 MG/DL 0.50 MG/DL Random Glucose 76 MG/DL 79 MG/DL Total Protein 6.9 GM/DL Albumin 3.5 GM/DL Calcium Level 8.1 MG/DL 8.6 MG/DL Alkaline Phosphatase 77 U/L Aspartate Amino Transf (AST/SGOT) 32 U/L Alanine Aminotransferase (ALT/SGPT) 27 U/L Total Bilirubin 0.2 MG/DL Sodium Level 130 MEQ/L 135 MEQ/L Potassium Level 4.1 MEQ/L 5.2 MEQ/L Chloride Level 91 MEQ/L 95 MEQ/L Carbon Dioxide Level 36.0 MEQ/L 35.9 MEQ/L Anion Gap 3 MEQ/L 4 MEQ/L Estimat Glomerular Filtration Rate 107 ML/MIN 129 ML/MIN Salicylates Level LESS THAN 1.7 MG/DL Acetaminophen Level LESS THAN 2.0 MCG/ML Ethyl Alcohol Level LESS THAN 3 MG/DL Triglycerides Level 50 MG/DL Cholesterol Level 140 MG/DL LDL Cholesterol 55 MG/DL HDL Cholesterol 75.1 MG/DL Cholesterol/HDL Ratio 1.86 RATIO Mental Status Examination Appearance: Disheveled, Malodorous Consciousness: Alert Orientation: Person Motor Activity: Other (use his walker) Speech: Pressured, Rapid, Stuttering Language: Other (markedly disorganized) Fund of Knowledge: Inadequate Attention and Concentration: Other (poor) Memory: Impaired Mood: Angry, Sad, Anxious, Irritable Affect: Other (marked increase range of motion intensity) Thought Process & Associations: Disorganized Thought Content: Bizarre thinking Hallucination Type: Auditory (appears to be responding to internal stimuli) Delusion Type: Bizarre, Paranoid Suicidal Ideation: No Suicidal Plan: No Suicidal Intention: No Homicidal Ideation: No Homicidal Plan: No Homicidal Intention: No Insight: Poor Judgment: Poor Assessment & Plan Problem List: (1) Paranoid type schizophrenia, chronic state ICD Codes: F20.0 - Paranoid schizophrenia Status: Acute Assessment & Plan: I have seen and examined this patient, reviewed the documentation, I agree and concur with Dr. Bruce's assessment and plan. Assessment & Plan Estimated LOS: days Request HC Surrog/Guard Advoc?: Vinayak Hendricks MD Sep 02, 2017 13:03
[2017-09-02] MEDS ORDERED: BENZOCAINE-MENTHOL (SUGAR FREE) 15 MG-3.6 MG LOZENGE BUCCAL PRN (14:00)
[2017-09-02] MEDS: [UNRECOGNIZED DRUG - OTHER] IM SCH (14:47)
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
[2017-09-02] MEDS ORDERED: RESP: ALBUTEROL 2.5 MG/IPRATROPIUM 0.5 MG NEB (PRN) NEB (16:00)
[2017-09-02 16:40] LABS: HEMOGLOBIN A1C 5.5 % (4.3-6.0)
[2017-09-02 16:56] VITALS: BP 131/93; PULSE 86; RESP 18; TEMP 98; O2SAT 93
[2017-09-02] MEDS ORDERED: LACTULOSE PO SCH (21:00)
[2017-09-02] MEDS: TRIAMCINOLONE ACETONIDE 0.1% OINT 15 GM TUBE TOPICAL SCH (21:00)
[2017-09-02] MEDS: ATORVASTATIN 10 MG TAB PO SCH (22:10)
[2017-09-02] MEDS: DIVALPROEX SODIUM SPRINKLES 125 MG CAP PO SCH (22:11)
[2017-09-02] MEDS: diphenhydrAMINE HCL 25 MG CAP PO SCH (22:11)
[2017-09-02] MEDS: BUDESONIDE-FORMOTEROL 80/4.5 MCG INHALER INH SCH (22:13)
[2017-09-03 06:00] VITALS: BP 123/82; PULSE 62; RESP 16; TEMP 98.1; O2SAT 96
[2017-09-03] MEDS: ASPIRIN EC 81 MG TABEC PO SCH (09:00)
[2017-09-03] MEDS: NICOTINE 21 MG/24 HR PATCH T-DERMAL SCH (09:00)
[2017-09-03] MEDS: SODIUM CHLORIDE 1 GRAM TAB PO SCH (09:00)
[2017-09-03] MEDS: TRIAMCINOLONE ACETONIDE 0.1% OINT 15 GM TUBE TOPICAL SCH ×2 (09:00→21:00)
[2017-09-03] MEDS: LACTULOSE SYRUP 20 GM/30 ML CUP PO SCH ×2 (09:21→21:00)
[2017-09-03] MEDS: OXcarbazepine 300 MG TAB PO SCH ×2 (09:21→21:31)
[2017-09-03] MEDS: CETIRIZINE HCL 10 MG TAB PO SCH (09:22)
[2017-09-03] MEDS: DIVALPROEX SODIUM E.R. 500 MG TAB PO SCH ×2 (09:22→21:31)
[2017-09-03] MEDS: BUDESONIDE-FORMOTEROL 80/4.5 MCG INHALER INH SCH ×2 (09:23→21:32)
[2017-09-03] MEDS: METOPROLOL TARTRATE 25 MG TAB PO SCH (09:23)
--- NOTE | 2017-09-03 13:23 | HHI.PYPN ---
Subjective Chief Complaint: patient psychotic delusional with self-injurious behaviors and aggressive b Remarks Patient seen in day room with nurse arnaud, chart review, patient compliant medications. Patient continues loud intrusive disorganized stating she wants to stay here so [facility]. The also states she wishes to return to [facility]. She continues to show no insight into her behaviors. Will increase scheduled Prolixin to 5 mg 3 times a day Review of Systems Except as stated in HPI: all other systems reviewed are Neg Mental Status Examination Appearance: Disheveled, Malodorous Consciousness: Alert Orientation: Person Motor Activity: Other (use his walker) Speech: Pressured, Rapid, Stuttering Language: Other (markedly disorganized) Fund of Knowledge: Inadequate Attention and Concentration: Other (poor) Memory: Impaired Mood: Angry, Sad, Anxious, Irritable Affect: Other (marked increase range of motion intensity) Thought Process & Associations: Disorganized Thought Content: Bizarre thinking Hallucination Type: Auditory (appears to be responding to internal stimuli) Delusion Type: Bizarre, Paranoid Suicidal Ideation: No Suicidal Plan: No Suicidal Intention: No Homicidal Ideation: No Homicidal Plan: No Homicidal Intention: No Insight: Poor Judgment: Poor Results Vitals/IOs Vital Signs Date Time Temp Pulse Resp B/P (MAP) Pulse Ox O2 Delivery O2 Flow Rate FiO2 09/03/17 06:00 98.1 62 16 123/82 (96) 96 09/01/17 16:33 Room Air Intake and Output 09/03/17 09/03/17 09/04/17 08:00 16:00 00:00 Intake Total 840 ml Balance 840 ml Assessment & Plan Problem List: (1) Paranoid type schizophrenia, chronic state ICD Codes: F20.0 - Paranoid schizophrenia Status: Acute Assessment & Plan Estimated LOS: days patient continue psychotic delusional and intrusive. Placement medication adjustment above Justification for Cont. Inpt. At this time patient will decompensate if placed in a lower level of care Discharge Planning Placement may become problematic she would like to return to [facility] Request HC Surrog/Guard Advoc?: No Kt Bruce MD Sep 03, 2017 13:23
[2017-09-03 18:00] VITALS: BP 128/74; PULSE 85; RESP 17; TEMP 98.4; O2SAT 98
[2017-09-03] MEDS: diphenhydrAMINE HCL 25 MG CAP PO SCH (21:31)
[2017-09-03] MEDS: DIVALPROEX SODIUM SPRINKLES 125 MG CAP PO SCH (21:31)
[2017-09-03] MEDS: ATORVASTATIN 10 MG TAB PO SCH (21:31)
[2017-09-04 06:22] VITALS: BP 124/69; PULSE 85; RESP 17; TEMP 98.2; O2SAT 95
[2017-09-04] MEDS: NICOTINE 21 MG/24 HR PATCH T-DERMAL SCH (09:00)
[2017-09-04] MEDS: TRIAMCINOLONE ACETONIDE 0.1% OINT 15 GM TUBE TOPICAL SCH ×2 (09:00→21:00)
[2017-09-04] MEDS: LACTULOSE SYRUP 20 GM/30 ML CUP PO SCH ×2 (09:34→21:49)
[2017-09-04] MEDS: BUDESONIDE-FORMOTEROL 80/4.5 MCG INHALER INH SCH ×2 (09:35→21:00)
[2017-09-04] MEDS: METOPROLOL TARTRATE 25 MG TAB PO SCH (09:36)
[2017-09-04] MEDS: DIVALPROEX SODIUM E.R. 500 MG TAB PO SCH ×2 (09:36→21:48)
[2017-09-04] MEDS: SODIUM CHLORIDE 1 GRAM TAB PO SCH (09:36)
[2017-09-04] MEDS: OXcarbazepine 300 MG TAB PO SCH ×2 (09:36→21:48)
[2017-09-04] MEDS: CETIRIZINE HCL 10 MG TAB PO SCH (09:37)
[2017-09-04] MEDS: ASPIRIN EC 81 MG TABEC PO SCH (09:37)
--- NOTE | 2017-09-04 14:46 | HHI.PYPN ---
Subjective Chief Complaint: patient psychotic delusional with self-injurious behaviors and aggressive b Remarks Pt seen and discussed with staff. She has been cooperative and calm on unit. No SI/HI. She is compliant with medications. She is rambling and grandiose. Mental Status Examination Appearance: Disheveled, Malodorous Consciousness: Alert Orientation: Person Motor Activity: Other (use his walker) Speech: Pressured, Rapid, Stuttering Language: Other (markedly disorganized) Fund of Knowledge: Inadequate Attention and Concentration: Other (poor) Memory: Impaired Mood: Other (elevated) Affect: Other (expansive) Thought Process & Associations: Disorganized Thought Content: Bizarre thinking Hallucination Type: Auditory (appears to be responding to internal stimuli) Delusion Type: Bizarre, Paranoid Suicidal Ideation: No Suicidal Plan: No Suicidal Intention: No Homicidal Ideation: No Homicidal Plan: No Homicidal Intention: No Insight: Poor Judgment: Poor Results Vitals/IOs Vital Signs Date Time Temp Pulse Resp B/P (MAP) Pulse Ox O2 Delivery O2 Flow Rate FiO2 09/04/17 06:22 98.2 85 17 124/69 (87) 95 09/01/17 16:33 Room Air Intake and Output 09/04/17 09/04/17 09/05/17 08:00 16:00 00:00 Intake Total 240 ml 240 ml Balance 240 ml 240 ml Assessment & Plan Problem List: (1) Paranoid type schizophrenia, chronic state ICD Codes: F20.0 - Paranoid schizophrenia Status: Acute Assessment & Plan Continue current tx plan. Estimated LOS: days Justification for Cont. Inpt. impairments in reality testing Request HC Surrog/Guard Advoc?: Ivy Wilhelm MD Sep 04, 2017 14:46
[2017-09-04 16:06] LABS: BICARBONATE 32.5 MEQ/L (21.0-32.0); CALCIUM 8.4 MG/DL (8.5-10.1); CREATININE 0.95 MG/DL (0.50-1.00)
[2017-09-04] MEDS: ATORVASTATIN 10 MG TAB PO SCH (21:47)
[2017-09-04] MEDS: DIVALPROEX SODIUM SPRINKLES 125 MG CAP PO SCH (21:48)
[2017-09-04] MEDS: diphenhydrAMINE HCL 25 MG CAP PO SCH (21:48)
[2017-09-05 06:04] VITALS: BP 117/74; PULSE 82; RESP 16; TEMP 98.1; O2SAT 94
[2017-09-05] MEDS: LACTULOSE SYRUP 20 GM/30 ML CUP PO SCH ×2 (08:18→22:00)
[2017-09-05] MEDS: ASPIRIN EC 81 MG TABEC PO SCH (08:19)
[2017-09-05] MEDS: OXcarbazepine 300 MG TAB PO SCH ×2 (08:19→22:01)
[2017-09-05] MEDS: CETIRIZINE HCL 10 MG TAB PO SCH (08:19)
[2017-09-05] MEDS: METOPROLOL TARTRATE 25 MG TAB PO SCH (08:19)
[2017-09-05] MEDS: SODIUM CHLORIDE 1 GRAM TAB PO SCH (08:19)
[2017-09-05] MEDS: DIVALPROEX SODIUM E.R. 500 MG TAB PO SCH ×2 (08:19→22:00)
[2017-09-05] MEDS: BUDESONIDE-FORMOTEROL 80/4.5 MCG INHALER INH SCH ×2 (08:25→22:01)
[2017-09-05] MEDS: NICOTINE 21 MG/24 HR PATCH T-DERMAL SCH (09:00)
[2017-09-05] MEDS: TRIAMCINOLONE ACETONIDE 0.1% OINT 15 GM TUBE TOPICAL SCH ×2 (09:00→21:00)
--- NOTE | 2017-09-05 14:03 | HHI.PYPN ---
Subjective Remarks Pt seen and discussed with staff. She is compliant with medications and has had no side effects. No agitation or aggression. No SI/HI. Less fixated on delusions. No SI/HI Mental Status Examination Appearance: Disheveled, Malodorous Consciousness: Alert Orientation: Person Motor Activity: Other (use his walker) Speech: Pressured, Rapid, Stuttering Language: Other (markedly disorganized) Fund of Knowledge: Inadequate Attention and Concentration: Other (poor) Memory: Impaired Mood: Other (elevated) Affect: Other (expansive) Thought Process & Associations: Disorganized Thought Content: Bizarre thinking (decreaesed) Hallucination Type: None Delusion Type: Bizarre, Paranoid Suicidal Ideation: No Suicidal Plan: No Suicidal Intention: No Homicidal Ideation: No Homicidal Plan: No Homicidal Intention: No Insight: Poor Judgment: Poor Results Labs Test 09/04/17 15:14 Blood Urea Nitrogen 16 MG/DL Creatinine 0.95 MG/DL Random Glucose 92 MG/DL Calcium Level 8.4 MG/DL Sodium Level 131 MEQ/L Potassium Level 4.4 MEQ/L Chloride Level 93 MEQ/L Carbon Dioxide Level 32.5 MEQ/L Anion Gap 6 MEQ/L Estimat Glomerular Filtration Rate 62 ML/MIN Vitals/IOs Vital Signs Date Time Temp Pulse Resp B/P (MAP) Pulse Ox O2 Delivery O2 Flow Rate FiO2 09/05/17 06:04 98.1 82 16 117/74 (88) 94 09/01/17 16:33 Room Air Assessment & Plan Problem List: (1) Paranoid type schizophrenia, chronic state ICD Codes: F20.0 - Paranoid schizophrenia Status: Acute Assessment & Plan Continue current tx plan. Estimated LOS: days Justification for Cont. Inpt. risk of decompensation Request HC Surrog/Guard Advoc?: Ivy Wilhelm MD Sep 05, 2017 14:03
[2017-09-05] MEDS: ATORVASTATIN 10 MG TAB PO SCH (21:00)
[2017-09-05] MEDS: DIVALPROEX SODIUM SPRINKLES 125 MG CAP PO SCH (22:00)
[2017-09-05] MEDS: diphenhydrAMINE HCL 25 MG CAP PO SCH (22:01)
[2017-09-06 05:56] VITALS: BP 117/73; PULSE 83; RESP 18; TEMP 98.4; O2SAT 95
[2017-09-06] MEDS: TRIAMCINOLONE ACETONIDE 0.1% OINT 15 GM TUBE TOPICAL SCH ×2 (09:00→21:00)
[2017-09-06] MEDS: NICOTINE 21 MG/24 HR PATCH T-DERMAL SCH (09:00)
[2017-09-06] MEDS: OXcarbazepine 300 MG TAB PO SCH ×2 (09:02→21:36)
[2017-09-06] MEDS: SODIUM CHLORIDE 1 GRAM TAB PO SCH (09:02)
[2017-09-06] MEDS: LACTULOSE SYRUP 20 GM/30 ML CUP PO SCH ×2 (09:02→21:36)
[2017-09-06] MEDS: ASPIRIN EC 81 MG TABEC PO SCH (09:03)
[2017-09-06] MEDS: METOPROLOL TARTRATE 25 MG TAB PO SCH (09:04)
[2017-09-06] MEDS: DIVALPROEX SODIUM E.R. 500 MG TAB PO SCH ×2 (09:04→21:36)
[2017-09-06] MEDS: BUDESONIDE-FORMOTEROL 80/4.5 MCG INHALER INH SCH ×2 (09:04→21:00)
[2017-09-06] MEDS: CETIRIZINE HCL 10 MG TAB PO SCH (09:05)
--- NOTE | 2017-09-06 13:42 | HHI.PYPN ---
Subjective Remarks Patient seen and examined with nurse in coverage for Dr. Bruce. Chart reviewed. Case discussed with nursing staff who reports that the patient is perseverating on people with "evil eyes." On my examination today, the patient is calm but remained psychotic. She rambles about people with "cow eyes" and does indeed rail at length against people with "evil eyes" who are out to get her. She does not identify anyone on the unit with this problem. She is internally stimulated. No SI or HI voiced. Denies side effects from medications. No physical complaints. Review of Systems ROS Limitations: Psychotic, Poor Historian Except as stated in HPI: all other systems reviewed are Neg Mental Status Examination Appearance: Disheveled Consciousness: Alert Orientation: Person (at least) Motor Activity: Other (no motoric abnormalities noted) Speech: Rapid, Other (rambling) Language: Other (markedly disorganized) Fund of Knowledge: Inadequate Attention and Concentration: Other (poor) Memory: Impaired Mood: Irritable (mild) Affect: Blunt Thought Process & Associations: Disorganized Thought Content: Bizarre thinking, Delusional Hallucination Type: None (appears internally stimulated) Delusion Type: Bizarre, Paranoid Suicidal Ideation: No Suicidal Plan: No Suicidal Intention: No Homicidal Ideation: No Homicidal Plan: No Homicidal Intention: No Insight: Poor Judgment: Poor Results Labs Labs reviewed. Hyponatremia noted. Vitals/IOs Vital Signs Date Time Temp Pulse Resp B/P (MAP) Pulse Ox O2 Delivery O2 Flow Rate FiO2 09/06/17 05:56 98.4 83 18 117/73 (88) 95 Assessment & Plan Problem List: (1) Paranoid type schizophrenia, chronic state ICD Codes: F20.0 - Paranoid schizophrenia Status: Acute Assessment & Plan Titrate Prolixin to 5mg/5mg/7.5mg to target psychosis. Check a BMP in the morning to follow-up hyponatremia. Continue to monitor on the inpatient unit. Continue other medications and care as ordered. Justification for Cont. Inpt. Medication changes. Impairment in reality construction. High risk for decompensation in less restrictive environment. Discharge Planning Per Dr. Bruce Request HC Surrog/Guard Advoc?: No Cameron Torres MD Sep 06, 2017 13:42
[2017-09-06 17:00] VITALS: BP 102/54; PULSE 83; RESP 18; TEMP 98; O2SAT 95
[2017-09-06] MEDS: diphenhydrAMINE HCL 25 MG CAP PO SCH (21:34)
[2017-09-06] MEDS: DIVALPROEX SODIUM SPRINKLES 125 MG CAP PO SCH (21:35)
[2017-09-06] MEDS: ATORVASTATIN 10 MG TAB PO SCH (21:36)
[2017-09-07 06:53] VITALS: BP 97/53; PULSE 67; RESP 17; TEMP 97.4; O2SAT 94
[2017-09-07 07:56] LABS: BICARBONATE 33.3 MEQ/L (21.0-32.0); CALCIUM 7.9 MG/DL (8.5-10.1); CREATININE 0.55 MG/DL (0.50-1.00)
[2017-09-07] MEDS: OXcarbazepine 300 MG TAB PO SCH ×2 (08:23→21:24)
[2017-09-07] MEDS: CETIRIZINE HCL 10 MG TAB PO SCH (08:23)
[2017-09-07] MEDS: SODIUM CHLORIDE 1 GRAM TAB PO SCH (08:23)
[2017-09-07] MEDS: METOPROLOL TARTRATE 25 MG TAB PO SCH (08:23)
[2017-09-07] MEDS: DIVALPROEX SODIUM E.R. 500 MG TAB PO SCH ×2 (08:23→21:23)
[2017-09-07] MEDS: ASPIRIN EC 81 MG TABEC PO SCH (08:23)
[2017-09-07] MEDS: LACTULOSE SYRUP 20 GM/30 ML CUP PO SCH ×2 (08:28→21:25)
[2017-09-07] MEDS: NICOTINE 21 MG/24 HR PATCH T-DERMAL SCH (09:00)
--- NOTE | 2017-09-07 13:27 | HHI.PYPN ---
Subjective Remarks Patient seen in her room with floor staff, chart reviewed, patient compliant medications. Patient laying in bed calm mapping, though arousable her range of affect shows marked decrease in range and intensity. There is still some guarding and mild paranoia noted she is not speaking today about the "evil eye" people. For now continue treatment Review of Systems Except as stated in HPI: all other systems reviewed are Neg Mental Status Examination Appearance: Disheveled Consciousness: Alert Orientation: Person (at least) Motor Activity: Other (no motoric abnormalities noted) Speech: Rapid, Other (rambling) Language: Other (markedly disorganized) Fund of Knowledge: Inadequate Attention and Concentration: Other (poor) Memory: Impaired Mood: Irritable (mild) Affect: Blunt Thought Process & Associations: Disorganized Thought Content: Bizarre thinking, Delusional Hallucination Type: None (appears internally stimulated) Delusion Type: Bizarre, Paranoid Suicidal Ideation: No Suicidal Plan: No Suicidal Intention: No Homicidal Ideation: No Homicidal Plan: No Homicidal Intention: No Insight: Poor Judgment: Poor Results Labs Test 09/07/17 07:02 Blood Urea Nitrogen 13 MG/DL Creatinine 0.55 MG/DL Random Glucose 78 MG/DL Calcium Level 7.9 MG/DL Sodium Level 132 MEQ/L Potassium Level 4.3 MEQ/L Chloride Level 94 MEQ/L Carbon Dioxide Level 33.3 MEQ/L Anion Gap 5 MEQ/L Estimat Glomerular Filtration Rate 116 ML/MIN Vitals/IOs Vital Signs Date Time Temp Pulse Resp B/P (MAP) Pulse Ox O2 Delivery O2 Flow Rate FiO2 09/07/17 06:53 97.4 67 17 97/53 (68) 94 Intake and Output 09/07/17 09/07/17 09/08/17 08:00 16:00 00:00 Intake Total 240 ml Balance 240 ml Assessment & Plan Problem List: (1) Paranoid type schizophrenia, chronic state ICD Codes: F20.0 - Paranoid schizophrenia Status: Acute Assessment & Plan Estimated LOS: days patient continue psychotic and paranoid though somewhat softer today. Compliant medications. For now continue treatment Justification for Cont. Inpt. At this time patient decompensated place to the lower level of care Discharge Planning Placement remains problematic the patient is not been placed on the state wait list Request HC Surrog/Guard Advoc?: No Kt Bruce MD Sep 07, 2017 13:27
[2017-09-07 18:40] VITALS: BP 110/52; PULSE 78; RESP 17; TEMP 98.1; O2SAT 95
[2017-09-07] MEDS: TRIAMCINOLONE ACETONIDE 0.1% OINT 15 GM TUBE TOPICAL SCH (21:00)
[2017-09-07] MEDS: BUDESONIDE-FORMOTEROL 80/4.5 MCG INHALER INH SCH (21:00)
[2017-09-07] MEDS: diphenhydrAMINE HCL 25 MG CAP PO SCH (21:22)
[2017-09-07] MEDS: DIVALPROEX SODIUM SPRINKLES 125 MG CAP PO SCH (21:23)
[2017-09-07] MEDS: ATORVASTATIN 10 MG TAB PO SCH (21:23)
[2017-09-08 06:00] VITALS: BP 92/54; PULSE 68; RESP 14; TEMP 97.7
[2017-09-08] MEDS: OXcarbazepine 300 MG TAB PO SCH ×2 (08:08→21:41)
[2017-09-08] MEDS: ASPIRIN EC 81 MG TABEC PO SCH (08:08)
[2017-09-08] MEDS: METOPROLOL TARTRATE 25 MG TAB PO SCH (08:08)
[2017-09-08] MEDS: CETIRIZINE HCL 10 MG TAB PO SCH (08:08)
[2017-09-08] MEDS: DIVALPROEX SODIUM E.R. 500 MG TAB PO SCH ×2 (08:09→21:40)
[2017-09-08] MEDS: BUDESONIDE-FORMOTEROL 80/4.5 MCG INHALER INH SCH ×2 (08:13→21:00)
[2017-09-08] MEDS: LACTULOSE SYRUP 20 GM/30 ML CUP PO SCH ×2 (09:00→21:42)
[2017-09-08] MEDS: SODIUM CHLORIDE 1 GRAM TAB PO SCH (09:00)
[2017-09-08] MEDS: NICOTINE 21 MG/24 HR PATCH T-DERMAL SCH (09:00)
--- NOTE | 2017-09-08 11:40 | HHI.PYPN ---
Subjective Remarks Patient seen in day room with nurse arnaud, chart review, patient compliant medications. Patient did a little better with her ADL's today did take a shower and wash her hair. She continues perseverative and loud though her affect show slight decrease range and intensity. She is somewhat more appropriate. However she still remains delusional and disorganized Review of Systems Except as stated in HPI: all other systems reviewed are Neg Mental Status Examination Appearance: Disheveled Consciousness: Alert Orientation: Person (at least) Motor Activity: Other (no motoric abnormalities noted) Speech: Rapid, Other (rambling) Language: Other (markedly disorganized) Fund of Knowledge: Inadequate Attention and Concentration: Other (poor) Memory: Impaired Mood: Irritable (mild) Affect: Blunt Thought Process & Associations: Disorganized Thought Content: Bizarre thinking, Delusional Hallucination Type: None (appears internally stimulated) Delusion Type: Bizarre, Paranoid Suicidal Ideation: No Suicidal Plan: No Suicidal Intention: No Homicidal Ideation: No Homicidal Plan: No Homicidal Intention: No Insight: Poor Judgment: Poor Results Vitals/IOs Vital Signs Date Time Temp Pulse Resp B/P (MAP) Pulse Ox O2 Delivery O2 Flow Rate FiO2 09/08/17 06:00 97.7 68 14 92/54 (67) 09/07/17 18:40 95 Assessment & Plan Problem List: (1) Paranoid type schizophrenia, chronic state ICD Codes: F20.0 - Paranoid schizophrenia Status: Acute Assessment & Plan Estimated LOS: days patient continues psychotic delusional paranoid though somewhat softer today. Patient scheduled for [facility] tomorrow Justification for Cont. Inpt. At this time patient will decompensate a placed a lower level of care Discharge Planning Patient placed on the state wait list Request HC Surrog/Guard Advoc?: No Kt Bruce MD Sep 08, 2017 11:40
--- NOTE | 2017-09-08 15:09 | PD.TTN ---
Patient Problems 1. Discharge planning 2. Medication compliance 3. Knowledge deficit 4. Lack of coping skills Progress Toward Goals Provider Present: Dr. Jae Bruce Provider Input: 09/08/2017 - Dr. Bruce reported the patient signed an ROR and will be discharged today. Psychiatric Counselors Present: NIKKI Pradhan Psych Therapist Input: 09/08/2017 - Counselor reported the patient remains anxious and has requested information related to sober living housing. Counselor will provide the patient with requested information. Discharge Plan [facility] Patient reported he will be going to sober living following discharge. Patient will follow-up at [facility]. Documentation Scribe: NIKKI Pradhan Date Resolved: Sep 08, 2017 Nica Serna Sep 08, 2017 15:09
--- NOTE | 2017-09-08 15:17 | PD.TTN ---
Patient Problems 1. Discharge planning 2. Medication compliance 3. Knowledge deficit 4. Lack of coping skills Progress Toward Goals Provider Present: Dr. Jae Bruce Provider Input: 09/08/2017 - Dr. Bruce reported the patient has been placed on the [facility] wait list. Psychiatric Counselors Present: NIKKI Pradhan Psych Therapist Input: 09/08/2017 - Counselor reported that i will initiate patient's [facility] packet. Group Spec/RT/OT/RODRIGUEZ Present: August Maguire OT Discharge Plan SMA Patient has been ordered to [facility]. Documentation Scribe: NIKKI Pradhan Date Resolved: Sep 08, 2017 Nica Serna Sep 08, 2017 15:17
[2017-09-08 18:41] VITALS: BP 129/84; PULSE 79; RESP 16; TEMP 97.8; O2SAT 95
[2017-09-08] MEDS: TRIAMCINOLONE ACETONIDE 0.1% OINT 15 GM TUBE TOPICAL SCH (21:00)
[2017-09-08] MEDS: ATORVASTATIN 10 MG TAB PO SCH (21:40)
[2017-09-08] MEDS: DIVALPROEX SODIUM SPRINKLES 125 MG CAP PO SCH (21:40)
[2017-09-08] MEDS: TRIAMCINOLONE ACETONIDE 0.1% CREAM 15 GM EXTERNAL PRN (21:40)
[2017-09-08] MEDS: diphenhydrAMINE HCL 25 MG CAP PO SCH (21:41)
[2017-09-09 06:35] VITALS: BP 116/70; PULSE 74; RESP 16; TEMP 97.8; O2SAT 96
[2017-09-09] MEDS: BUDESONIDE-FORMOTEROL 80/4.5 MCG INHALER INH SCH ×2 (08:12→20:40)
[2017-09-09] MEDS: DIVALPROEX SODIUM E.R. 500 MG TAB PO SCH ×2 (08:13→20:39)
[2017-09-09] MEDS: CETIRIZINE HCL 10 MG TAB PO SCH (08:13)
[2017-09-09] MEDS: OXcarbazepine 300 MG TAB PO SCH ×2 (08:13→20:39)
[2017-09-09] MEDS: LACTULOSE SYRUP 20 GM/30 ML CUP PO SCH ×2 (08:13→20:38)
[2017-09-09] MEDS: ASPIRIN EC 81 MG TABEC PO SCH (08:13)
[2017-09-09] MEDS: TRIAMCINOLONE ACETONIDE 0.1% OINT 15 GM TUBE TOPICAL SCH ×2 (08:15→20:39)
[2017-09-09] MEDS: SODIUM CHLORIDE 1 GRAM TAB PO SCH (08:15)
[2017-09-09] MEDS: METOPROLOL TARTRATE 25 MG TAB PO SCH (08:15)
[2017-09-09] MEDS: NICOTINE 21 MG/24 HR PATCH T-DERMAL SCH (08:15)
--- NOTE | 2017-09-09 10:35 | HHI.PYPN ---
Subjective Remarks Patient seen in [address] today retained by Admissions Recruiter [place], patient continues somewhat loud and intrusive. Showing no insight. She is compliant with her medications. Will be checking Depakote blood level tomorrow morning. It appears the patient continues to show some improvement she'll be allowed back at [facility]. We'll consider the addition of a long-acting decanoate for this lady Review of Systems Except as stated in HPI: all other systems reviewed are Neg Mental Status Examination Appearance: Disheveled Consciousness: Alert Orientation: Person (at least) Motor Activity: Other (no motoric abnormalities noted) Speech: Rapid, Other (rambling) Language: Other (markedly disorganized) Fund of Knowledge: Inadequate Attention and Concentration: Other (poor) Memory: Impaired Mood: Irritable (mild) Affect: Blunt Thought Process & Associations: Disorganized Thought Content: Bizarre thinking, Delusional Hallucination Type: None (appears internally stimulated) Delusion Type: Bizarre, Paranoid Suicidal Ideation: No Suicidal Plan: No Suicidal Intention: No Homicidal Ideation: No Homicidal Plan: No Homicidal Intention: No Insight: Poor Judgment: Poor Results Vitals/IOs Vital Signs Date Time Temp Pulse Resp B/P (MAP) Pulse Ox O2 Delivery O2 Flow Rate FiO2 09/09/17 06:35 97.8 74 16 116/70 (85) 96 Assessment & Plan Problem List: (1) Paranoid type schizophrenia, chronic state ICD Codes: F20.0 - Paranoid schizophrenia Status: Acute Assessment & Plan Estimated LOS: days patient continues psychotic delusional somewhat intrusive. Was retained by Admissions Recruiter [place]ma will check Depakote level over in a.m. we'll consider possibility of adding a Prolixin decanoate to the medication regimen Justification for Cont. Inpt. At this time patient will decompensate placed in a lower level of care Discharge Planning Probable return to [facility] Request HC Surrog/Guard Advoc?: No Kt Bruce MD Sep 09, 2017 10:35
[2017-09-09 18:18] VITALS: BP 145/95; PULSE 77; RESP 17; TEMP 97.7; O2SAT 99
[2017-09-09] MEDS: diphenhydrAMINE HCL 25 MG CAP PO SCH (20:39)
[2017-09-09] MEDS: ATORVASTATIN 10 MG TAB PO SCH (20:39)
[2017-09-09] MEDS: DIVALPROEX SODIUM SPRINKLES 125 MG CAP PO SCH (20:39)
[2017-09-10 06:32] VITALS: BP 124/70; PULSE 66; RESP 16; TEMP 98; O2SAT 97
[2017-09-10] MEDS: CETIRIZINE HCL 10 MG TAB PO SCH (08:15)
[2017-09-10] MEDS: METOPROLOL TARTRATE 25 MG TAB PO SCH (08:15)
[2017-09-10] MEDS: SODIUM CHLORIDE 1 GRAM TAB PO SCH (08:15)
[2017-09-10] MEDS: ASPIRIN EC 81 MG TABEC PO SCH (08:15)
[2017-09-10] MEDS: BUDESONIDE-FORMOTEROL 80/4.5 MCG INHALER INH SCH ×2 (08:16→21:00)
[2017-09-10] MEDS: DIVALPROEX SODIUM E.R. 500 MG TAB PO SCH ×2 (08:16→21:29)
[2017-09-10] MEDS: TRIAMCINOLONE ACETONIDE 0.1% OINT 15 GM TUBE TOPICAL SCH ×2 (08:27→21:00)
[2017-09-10] MEDS: NICOTINE 21 MG/24 HR PATCH T-DERMAL SCH (08:27)
[2017-09-10] MEDS: LACTULOSE SYRUP 20 GM/30 ML CUP PO SCH ×2 (08:27→21:32)
[2017-09-10] MEDS: OXcarbazepine 300 MG TAB PO SCH ×2 (08:27→21:30)
--- NOTE | 2017-09-10 15:30 | HHI.PYPN ---
Subjective Remarks Patient seen in dayroom with floor staff, chart review, patient compliant medications. She continue somewhat loud and intrusive. Though still focusing and discharge joint return to her long term. However considering it past issues who patient still is somewhat volatile. Depakote level drawn this a.m. came back at 80, will increase at bedtime dose by 125 mg recheck blood level on 09/13 Review of Systems Except as stated in HPI: all other systems reviewed are Neg Mental Status Examination Appearance: Disheveled Consciousness: Alert Orientation: Person (at least) Motor Activity: Other (no motoric abnormalities noted) Speech: Rapid, Other (rambling) Language: Other (markedly disorganized) Fund of Knowledge: Inadequate Attention and Concentration: Other (poor) Memory: Impaired Mood: Irritable (mild) Affect: Blunt Thought Process & Associations: Disorganized Thought Content: Bizarre thinking, Delusional Hallucination Type: None (appears internally stimulated) Delusion Type: Bizarre, Paranoid Suicidal Ideation: No Suicidal Plan: No Suicidal Intention: No Homicidal Ideation: No Homicidal Plan: No Homicidal Intention: No Insight: Poor Judgment: Poor Results Labs Test 09/10/17 09:26 Valproic Acid (Depakene) Level 80 MCG/ML Vitals/IOs Vital Signs Date Time Temp Pulse Resp B/P (MAP) Pulse Ox O2 Delivery O2 Flow Rate FiO2 09/10/17 06:32 98.0 66 16 124/70 (88) 97 Intake and Output 09/10/17 09/10/17 09/10/17 07:59 15:59 23:59 Intake Total 480 ml Balance 480 ml Assessment & Plan Problem List: (1) Paranoid type schizophrenia, chronic state ICD Codes: F20.0 - Paranoid schizophrenia Status: Acute Assessment & Plan Estimated LOS: days patient continues psychotic delusional and intrusive see medication adjustments above Justification for Cont. Inpt. Continue to await word from state hospital referral. At this time patient will decompensate the place to low level of care Discharge Planning Continue state hospital referral though there remains a possibility that she may return to [facility] [place] Request HC Surrog/Guard Advoc?: No Kt Bruce MD Sep 10, 2017 15:30
[2017-09-10 18:19] VITALS: BP 116/59; PULSE 78; RESP 16; TEMP 97.6
[2017-09-10] MEDS: diphenhydrAMINE HCL 25 MG CAP PO SCH (21:29)
[2017-09-10] MEDS: DIVALPROEX SODIUM SPRINKLES 125 MG CAP PO SCH (21:29)
[2017-09-10] MEDS: ATORVASTATIN 10 MG TAB PO SCH (21:30)
[2017-09-11 05:44] VITALS: BP 112/66; PULSE 77; RESP 17; TEMP 97.9; O2SAT 97
[2017-09-11] MEDS: SODIUM CHLORIDE 1 GRAM TAB PO SCH (08:53)
[2017-09-11] MEDS: METOPROLOL TARTRATE 25 MG TAB PO SCH (08:53)
[2017-09-11] MEDS: ASPIRIN EC 81 MG TABEC PO SCH (08:53)
[2017-09-11] MEDS: OXcarbazepine 300 MG TAB PO SCH ×2 (08:54→21:53)
[2017-09-11] MEDS: CETIRIZINE HCL 10 MG TAB PO SCH (08:54)
[2017-09-11] MEDS: DIVALPROEX SODIUM E.R. 500 MG TAB PO SCH ×2 (08:54→21:53)
[2017-09-11] MEDS: BUDESONIDE-FORMOTEROL 80/4.5 MCG INHALER INH SCH ×2 (08:55→21:00)
[2017-09-11] MEDS: NICOTINE 21 MG/24 HR PATCH T-DERMAL SCH (08:55)
[2017-09-11] MEDS: TRIAMCINOLONE ACETONIDE 0.1% OINT 15 GM TUBE TOPICAL SCH ×2 (08:55→21:00)
[2017-09-11] MEDS: LACTULOSE SYRUP 20 GM/30 ML CUP PO SCH ×2 (08:55→21:52)
--- NOTE | 2017-09-11 14:52 | HHI.PYPN ---
Subjective Remarks Patient was seen and case discussed with nursing. Patient remains loud, intrusive, and quite disorganized. No outbursts however. No aggressive behavior. Remains internally preoccupied with poor insight Mental Status Examination Appearance: Disheveled Consciousness: Alert Orientation: Person (at least) Motor Activity: Other (no motoric abnormalities noted) Speech: Rapid, Other (rambling) Language: Other (markedly disorganized) Fund of Knowledge: Inadequate Attention and Concentration: Other (poor) Memory: Impaired Mood: Irritable (mild) Affect: Blunt Thought Process & Associations: Circumstantial, Tangential Thought Content: Bizarre thinking, Delusional Hallucination Type: None (appears internally stimulated) Delusion Type: Bizarre, Paranoid Suicidal Ideation: No Suicidal Plan: No Suicidal Intention: No Homicidal Ideation: No Homicidal Plan: No Homicidal Intention: No Insight: Poor Judgment: Poor Results Vitals/IOs Vital Signs Date Time Temp Pulse Resp B/P (MAP) Pulse Ox O2 Delivery O2 Flow Rate FiO2 09/11/17 05:44 97.9 77 17 112/66 (10) 97 Assessment & Plan Problem List: (1) Paranoid type schizophrenia, chronic state ICD Codes: F20.0 - Paranoid schizophrenia Status: Acute Assessment & Plan Continue current treatment plan Justification for Cont. Inpt. Patient would decompensate in a less restrictive setting Request HC Surrog/Guard Advoc?: No Evans Redding DO Sep 11, 2017 14:52
[2017-09-11 16:20] VITALS: BP 91/51; PULSE 84; RESP 18; TEMP 98.2; O2SAT 96
[2017-09-11] MEDS: diphenhydrAMINE HCL 25 MG CAP PO SCH (21:53)
[2017-09-11] MEDS: ATORVASTATIN 10 MG TAB PO SCH (21:53)
[2017-09-11] MEDS: DIVALPROEX SODIUM SPRINKLES 125 MG CAP PO SCH (21:53)
[2017-09-12 05:15] VITALS: BP 104/58; PULSE 80; RESP 16; TEMP 97.9; O2SAT 96
[2017-09-12] MEDS: DIVALPROEX SODIUM E.R. 500 MG TAB PO SCH ×2 (08:34→21:18)
[2017-09-12] MEDS: ASPIRIN EC 81 MG TABEC PO SCH (08:34)
[2017-09-12] MEDS: CETIRIZINE HCL 10 MG TAB PO SCH (08:34)
[2017-09-12] MEDS: OXcarbazepine 300 MG TAB PO SCH ×2 (08:34→21:18)
[2017-09-12] MEDS: SODIUM CHLORIDE 1 GRAM TAB PO SCH (08:34)
[2017-09-12] MEDS: LACTULOSE SYRUP 20 GM/30 ML CUP PO SCH ×2 (08:34→21:18)
[2017-09-12] MEDS: METOPROLOL TARTRATE 25 MG TAB PO SCH (08:35)
[2017-09-12] MEDS: BUDESONIDE-FORMOTEROL 80/4.5 MCG INHALER INH SCH ×2 (08:35→21:00)
[2017-09-12] MEDS: NICOTINE 21 MG/24 HR PATCH T-DERMAL SCH (08:35)
[2017-09-12] MEDS: TRIAMCINOLONE ACETONIDE 0.1% OINT 15 GM TUBE TOPICAL SCH ×2 (08:39→21:00)
--- NOTE | 2017-09-12 13:42 | HHI.PYPN ---
Subjective Remarks Patient was seen and case discussed with nursing. Patient is pleasant and cooperative with exam. She has not had any outbursts. Seclusive to room today saying she feels drowsy. Continues to deny psychotic symptoms Mental Status Examination Appearance: Disheveled Consciousness: Alert Orientation: Person (at least) Motor Activity: Other (no motoric abnormalities noted) Speech: Rapid, Other (rambling) Language: Other (markedly disorganized) Fund of Knowledge: Inadequate Attention and Concentration: Other (poor) Memory: Impaired Mood: Irritable (mild) Affect: Blunt Thought Process & Associations: Tangential Thought Content: Bizarre thinking, Delusional Hallucination Type: None (appears internally stimulated) Delusion Type: None, Paranoid Suicidal Ideation: No Suicidal Plan: No Suicidal Intention: No Homicidal Ideation: No Homicidal Plan: No Homicidal Intention: No Insight: Poor Judgment: Poor Results Vitals/IOs Vital Signs Date Time Temp Pulse Resp B/P (MAP) Pulse Ox O2 Delivery O2 Flow Rate FiO2 09/12/17 05:15 97.9 80 16 104/58 (73) 96 Assessment & Plan Problem List: (1) Paranoid type schizophrenia, chronic state ICD Codes: F20.0 - Paranoid schizophrenia Status: Acute Assessment & Plan Continue current treatment plan Justification for Cont. Inpt. Patient will decompensate in a less restrictive setting Request HC Surrog/Guard Advoc?: No Evans Redding DO Sep 12, 2017 13:42
[2017-09-12 16:03] VITALS: BP 119/76; PULSE 89; RESP 18; TEMP 97.5; O2SAT 94
[2017-09-12] MEDS: ATORVASTATIN 10 MG TAB PO SCH (21:19)
[2017-09-12] MEDS: DIVALPROEX SODIUM SPRINKLES 125 MG CAP PO SCH (21:19)
[2017-09-12] MEDS: diphenhydrAMINE HCL 25 MG CAP PO SCH (21:20)
[2017-09-13 06:40] VITALS: BP 122/70; PULSE 82; RESP 16; TEMP 98; O2SAT 95
[2017-09-13] MEDS: DIVALPROEX SODIUM E.R. 500 MG TAB PO SCH ×2 (08:06→21:25)
[2017-09-13] MEDS: SODIUM CHLORIDE 1 GRAM TAB PO SCH (08:06)
[2017-09-13] MEDS: OXcarbazepine 300 MG TAB PO SCH ×2 (08:06→21:25)
[2017-09-13] MEDS: METOPROLOL TARTRATE 25 MG TAB PO SCH (08:06)
[2017-09-13] MEDS: CETIRIZINE HCL 10 MG TAB PO SCH (08:06)
[2017-09-13] MEDS: LACTULOSE SYRUP 20 GM/30 ML CUP PO SCH ×2 (08:06→21:22)
[2017-09-13] MEDS: BUDESONIDE-FORMOTEROL 80/4.5 MCG INHALER INH SCH ×2 (08:06→21:00)
[2017-09-13] MEDS: ASPIRIN EC 81 MG TABEC PO SCH (08:06)
[2017-09-13] MEDS: TRIAMCINOLONE ACETONIDE 0.1% OINT 15 GM TUBE TOPICAL SCH ×2 (08:09→21:00)
[2017-09-13] MEDS: NICOTINE 21 MG/24 HR PATCH T-DERMAL SCH (08:09)
--- NOTE | 2017-09-13 10:23 | PD.TTN ---
Patient Problems 1. Discharge planning 2. Medication compliance 3. Knowledge deficit 4. Lack of coping skills Progress Toward Goals Provider Present: Dr. Jae Bruce Provider Input: 09/13/2017 - Dr. bruce reported the patient remains on the [facility] wait list. 09/08/2017 - Dr. Bruce reported the patient has been placed on the [facility] wait list. Psychiatric Counselors Present: NIKKI Prdahan Psych Therapist Input: 09/13/2017 - Counselor will complete patient's [facility] packet today. 09/08/2017 - Counselor reported that i will initiate patient's [facility] packet. Group Spec/RT/OT/RODRIGUEZ Present: August Maguire OT Group Spec/RT/OT/RODRIGUEZ Input: 09/13/2017 - Patient only attends select groups. Discharge Plan SMA Patient has been ordered to [facility]. Documentation Scribe: NIKKI Pradhan Date Resolved: Sep 13, 2017 Nica Serna Sep 13, 2017 10:23
--- NOTE | 2017-09-13 16:21 | HHI.PYPN ---
Subjective Remarks Patient seen on unit with floor staff, chart reviewed, patient compliant medications. Patient continues intrusive and loud with no insight into her disease. Continues to focus at times on her various roommates at the facility. For now continue treatment Review of Systems Except as stated in HPI: all other systems reviewed are Neg Mental Status Examination Appearance: Disheveled Consciousness: Alert Orientation: Person (at least) Motor Activity: Other (no motoric abnormalities noted) Speech: Rapid, Other (rambling) Language: Other (markedly disorganized) Fund of Knowledge: Inadequate Attention and Concentration: Other (poor) Memory: Impaired Mood: Irritable (mild) Affect: Blunt Thought Process & Associations: Tangential Thought Content: Bizarre thinking, Delusional Hallucination Type: None (appears internally stimulated) Delusion Type: None, Paranoid Suicidal Ideation: No Suicidal Plan: No Suicidal Intention: No Homicidal Ideation: No Homicidal Plan: No Homicidal Intention: No Insight: Poor Judgment: Poor Results Vitals/IOs Vital Signs Date Time Temp Pulse Resp B/P (MAP) Pulse Ox O2 Delivery O2 Flow Rate FiO2 09/13/17 06:40 98.0 82 16 122/70 (87) 95 Intake and Output 09/13/17 09/13/17 09/13/17 07:59 15:59 23:59 Intake Total 240 ml 240 ml Balance 240 ml 240 ml Assessment & Plan Problem List: (1) Paranoid type schizophrenia, chronic state ICD Codes: F20.0 - Paranoid schizophrenia Status: Acute Assessment & Plan Estimated LOS: days patient continue psychotic and delusional, compliant medications. Continue to await word from [facility] Justification for Cont. Inpt. At this time patient decompensated placed in a lower level of care Discharge Planning Await word from [facility] referral Request HC Surrog/Guard Advoc?: No Kt Bruce MD Sep 13, 2017 16:21
[2017-09-13 18:26] VITALS: BP_SYST 124; BP_SYST 98; BP_DIAS 55; BP_DIAS 62; PULSE 70; PULSE 86; RESP 16; TEMP 97.6; TEMP 98.9; O2SAT 94; O2SAT 99
[2017-09-13] MEDS: diphenhydrAMINE HCL 25 MG CAP PO SCH (21:25)
[2017-09-13] MEDS: DIVALPROEX SODIUM SPRINKLES 125 MG CAP PO SCH (21:25)
[2017-09-13] MEDS: ATORVASTATIN 10 MG TAB PO SCH (21:25)
[2017-09-14 06:06] VITALS: BP 110/68; PULSE 62; RESP 16; TEMP 97.7; O2SAT 96
[2017-09-14] MEDS: TRIAMCINOLONE ACETONIDE 0.1% OINT 15 GM TUBE TOPICAL SCH ×2 (09:00→21:00)
[2017-09-14] MEDS: BUDESONIDE-FORMOTEROL 80/4.5 MCG INHALER INH SCH ×2 (09:00→21:00)
[2017-09-14] MEDS: NICOTINE 21 MG/24 HR PATCH T-DERMAL SCH (09:00)
[2017-09-14] MEDS: SODIUM CHLORIDE 1 GRAM TAB PO SCH (09:30)
[2017-09-14] MEDS: CETIRIZINE HCL 10 MG TAB PO SCH (09:30)
[2017-09-14] MEDS: DIVALPROEX SODIUM E.R. 500 MG TAB PO SCH (09:30)
[2017-09-14] MEDS: METOPROLOL TARTRATE 25 MG TAB PO SCH (09:30)
[2017-09-14] MEDS: OXcarbazepine 300 MG TAB PO SCH ×2 (09:31→21:01)
[2017-09-14] MEDS: ASPIRIN EC 81 MG TABEC PO SCH (09:31)
[2017-09-14] MEDS: LACTULOSE SYRUP 20 GM/30 ML CUP PO SCH ×2 (09:32→21:06)
--- NOTE | 2017-09-14 13:28 | HHI.PYPN ---
Subjective Remarks Patient seen in her room with nurse Ann, chart review, patient compliant with the medications. She states she wishes to return to [facility] which wants to go to her new room without her old roommate she is also perseverating on the bathroom privileges she has with her roommates. However she does denies suicidality voices or visions at this time. Patient is due for her next Respinol, start in about 2 days. While we are still awaiting word from the [facility] with new to possibly consider return to [facility] patient continues to improve. Patient Depakote level drawn this morning is 88 will increase Depakote from 500 a.m. 750 at bedtime to 500 a.m. 1000 at bedtime recheck blood level in about 3 days Review of Systems Except as stated in HPI: all other systems reviewed are Neg Mental Status Examination Appearance: Disheveled Consciousness: Alert Orientation: Person (at least) Motor Activity: Other (no motoric abnormalities noted) Speech: Rapid, Other (rambling) Language: Other (markedly disorganized) Fund of Knowledge: Inadequate Attention and Concentration: Other (poor) Memory: Impaired Mood: Irritable (mild) Affect: Blunt Thought Process & Associations: Tangential Thought Content: Bizarre thinking, Delusional Hallucination Type: None (appears internally stimulated) Delusion Type: None, Paranoid Suicidal Ideation: No Suicidal Plan: No Suicidal Intention: No Homicidal Ideation: No Homicidal Plan: No Homicidal Intention: No Insight: Poor Judgment: Poor Results Labs Test 09/14/17 08:49 Valproic Acid (Depakene) Level 88 MCG/ML Vitals/IOs Vital Signs Date Time Temp Pulse Resp B/P (MAP) Pulse Ox O2 Delivery O2 Flow Rate FiO2 09/14/17 06:06 97.7 62 16 110/68 (82) 96 Assessment & Plan Problem List: (1) Paranoid type schizophrenia, chronic state ICD Codes: F20.0 - Paranoid schizophrenia Status: Acute Assessment & Plan Estimated LOS: days patient remains delusional psychotic somewhat irritable but slightly improved. Compliant medications patient due for next Risperdal Consta injection in about 2 days. She medication adjustment above Justification for Cont. Inpt. At this time patient will decompensate if not placed on appropriate level of care Discharge Planning Continue to wait for state placement, though may consider return to [facility] patient improves further Request HC Surrog/Guard Advoc?: No Kt Bruce MD Sep 14, 2017 13:28
[2017-09-14 17:46] VITALS: BP 101/51; PULSE 80; RESP 16; TEMP 98.3; O2SAT 95
[2017-09-14] MEDS: diphenhydrAMINE HCL 25 MG CAP PO SCH (21:01)
[2017-09-14] MEDS: ATORVASTATIN 10 MG TAB PO SCH (21:04)
[2017-09-14] MEDS: DIVALPROEX SODIUM SPRINKLES 125 MG CAP PO SCH (21:05)
[2017-09-15] MEDS: LACTULOSE SYRUP 20 GM/30 ML CUP PO SCH ×2 (08:16→22:03)
[2017-09-15] MEDS: CETIRIZINE HCL 10 MG TAB PO SCH (08:16)
[2017-09-15] MEDS: ASPIRIN EC 81 MG TABEC PO SCH (08:16)
[2017-09-15] MEDS: METOPROLOL TARTRATE 25 MG TAB PO SCH (08:16)
[2017-09-15] MEDS: DIVALPROEX SODIUM E.R. 500 MG TAB PO SCH (08:16)
[2017-09-15] MEDS: NICOTINE 21 MG/24 HR PATCH T-DERMAL SCH (08:17)
[2017-09-15] MEDS: OXcarbazepine 300 MG TAB PO SCH ×2 (08:17→22:03)
[2017-09-15] MEDS: SODIUM CHLORIDE 1 GRAM TAB PO SCH (08:17)
[2017-09-15] MEDS: TRIAMCINOLONE ACETONIDE 0.1% OINT 15 GM TUBE TOPICAL SCH ×2 (08:17→21:00)
[2017-09-15] MEDS: BUDESONIDE-FORMOTEROL 80/4.5 MCG INHALER INH SCH ×2 (08:19→21:00)
--- NOTE | 2017-09-15 14:04 | HHI.PYPN ---
Subjective Remarks Patient seen in her room with floor staff. Chart reviewed, patient compliant medication, Patient laying in bed calm cooperative still wishing to return to [facility]. Though the chronic conflict in delusion related to her roommates persist. [facility] Review of Systems Except as stated in HPI: all other systems reviewed are Neg Mental Status Examination Appearance: Disheveled Consciousness: Alert Orientation: Person (at least) Motor Activity: Other (no motoric abnormalities noted) Speech: Rapid, Other (rambling) Language: Other (markedly disorganized) Fund of Knowledge: Inadequate Attention and Concentration: Other (poor) Memory: Impaired Mood: Irritable (mild) Affect: Blunt Thought Process & Associations: Tangential Thought Content: Bizarre thinking, Delusional Hallucination Type: None (appears internally stimulated) Delusion Type: None, Paranoid Suicidal Ideation: No Suicidal Plan: No Suicidal Intention: No Homicidal Ideation: No Homicidal Plan: No Homicidal Intention: No Insight: Poor Judgment: Poor Results Vitals/IOs Vital Signs Date Time Temp Pulse Resp B/P (MAP) Pulse Ox O2 Delivery O2 Flow Rate FiO2 09/14/17 17:46 98.3 80 16 101/51 (22) 95 Assessment & Plan Problem List: (1) Paranoid type schizophrenia, chronic state ICD Codes: F20.0 - Paranoid schizophrenia Status: Acute Assessment & Plan Estimated LOS: days patient continues with paranoid and delusional though slightly less irritable. Compliant medication. Continue to await word from state hospital referral Justification for Cont. Inpt. At this time patient will decompensate with placed in the lower level of care Discharge Planning Continue to await word from [facility] hospital referral Request HC Surrog/Guard Advoc?: No Kt Bruce MD Sep 15, 2017 14:04
[2017-09-15 18:14] VITALS: BP 110/66; PULSE 79; RESP 16; TEMP 97.9; O2SAT 93
[2017-09-15] MEDS: diphenhydrAMINE HCL 25 MG CAP PO SCH (22:01)
[2017-09-15] MEDS: ATORVASTATIN 10 MG TAB PO SCH (22:04)
[2017-09-15] MEDS: DIVALPROEX SODIUM SPRINKLES 125 MG CAP PO SCH (22:04)
[2017-09-16 05:41] VITALS: BP_SYST 110; BP_SYST 120; BP_DIAS 59; BP_DIAS 70; PULSE 58; RESP 16; TEMP 97.6; TEMP 97.8; O2SAT 96; O2SAT 97
[2017-09-16] MEDS: DIVALPROEX SODIUM E.R. 500 MG TAB PO SCH (08:34)
[2017-09-16] MEDS: ASPIRIN EC 81 MG TABEC PO SCH (08:34)
[2017-09-16] MEDS: SODIUM CHLORIDE 1 GRAM TAB PO SCH (08:34)
[2017-09-16] MEDS: METOPROLOL TARTRATE 25 MG TAB PO SCH (08:35)
[2017-09-16] MEDS: LACTULOSE SYRUP 20 GM/30 ML CUP PO SCH ×2 (08:35→20:56)
[2017-09-16] MEDS: OXcarbazepine 300 MG TAB PO SCH ×2 (08:35→20:58)
[2017-09-16] MEDS: CETIRIZINE HCL 10 MG TAB PO SCH (08:35)
[2017-09-16] MEDS: NICOTINE 21 MG/24 HR PATCH T-DERMAL SCH (08:36)
[2017-09-16] MEDS: BUDESONIDE-FORMOTEROL 80/4.5 MCG INHALER INH SCH ×2 (08:36→21:00)
[2017-09-16] MEDS: TRIAMCINOLONE ACETONIDE 0.1% OINT 15 GM TUBE TOPICAL SCH ×2 (08:39→21:00)
[2017-09-16] MEDS: [UNRECOGNIZED DRUG - OTHER] IM SCH (11:00)
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
[2017-09-16 18:15] VITALS: TEMP 98.1
[2017-09-16 18:16] VITALS: BP 123/77; PULSE 78; RESP 16; TEMP 98.1; O2SAT 95
[2017-09-16] MEDS: ATORVASTATIN 10 MG TAB PO SCH (20:58)
[2017-09-16] MEDS: diphenhydrAMINE HCL 25 MG CAP PO SCH (20:58)
[2017-09-16] MEDS: DIVALPROEX SODIUM SPRINKLES 125 MG CAP PO SCH (20:59)
[2017-09-17 05:47] VITALS: BP 112/67; PULSE 63; RESP 18; TEMP 97.3; O2SAT 98
[2017-09-17] MEDS: TRIAMCINOLONE ACETONIDE 0.1% OINT 15 GM TUBE TOPICAL SCH ×2 (09:00→21:00)
[2017-09-17] MEDS: LACTULOSE SYRUP 20 GM/30 ML CUP PO SCH ×2 (09:00→21:58)
[2017-09-17] MEDS: NICOTINE 21 MG/24 HR PATCH T-DERMAL SCH (09:00)
[2017-09-17] MEDS: BUDESONIDE-FORMOTEROL 80/4.5 MCG INHALER INH SCH ×2 (09:00→21:00)
[2017-09-17] MEDS: CETIRIZINE HCL 10 MG TAB PO SCH (09:27)
[2017-09-17] MEDS: SODIUM CHLORIDE 1 GRAM TAB PO SCH (09:28)
[2017-09-17] MEDS: OXcarbazepine 300 MG TAB PO SCH ×2 (09:28→21:00)
[2017-09-17] MEDS: ASPIRIN EC 81 MG TABEC PO SCH (09:28)
[2017-09-17] MEDS: METOPROLOL TARTRATE 25 MG TAB PO SCH (09:28)
[2017-09-17] MEDS: DIVALPROEX SODIUM E.R. 500 MG TAB PO SCH (10:57)
--- NOTE | 2017-09-17 13:48 | HHI.PYPN ---
Subjective Remarks Patient seen in [facility] floor staff, patient is a focus on returning to a long-term though with the same somewhat delusional ideation related to her roommate and finding other roommates who will not bother her or upset her. We are still awaiting word from [facility] hospital referral Review of Systems Except as stated in HPI: all other systems reviewed are Neg Mental Status Examination Appearance: Disheveled Consciousness: Alert Orientation: Person (at least) Motor Activity: Other (no motoric abnormalities noted) Speech: Rapid, Other (rambling) Language: Other (markedly disorganized) Fund of Knowledge: Inadequate Attention and Concentration: Other (poor) Memory: Impaired Mood: Irritable (mild) Affect: Blunt Thought Process & Associations: Tangential Thought Content: Bizarre thinking, Delusional Hallucination Type: None (appears internally stimulated) Delusion Type: None, Paranoid Suicidal Ideation: No Suicidal Plan: No Suicidal Intention: No Homicidal Ideation: No Homicidal Plan: No Homicidal Intention: No Insight: Poor Judgment: Poor Results Labs Test 09/17/17 10:45 Valproic Acid (Depakene) Level 77 MCG/ML Vitals/IOs Vital Signs Date Time Temp Pulse Resp B/P (MAP) Pulse Ox O2 Delivery O2 Flow Rate FiO2 09/17/17 05:47 97.3 63 18 112/67 (82) 98 Intake and Output 09/17/17 09/17/17 09/18/17 08:00 16:00 00:00 Intake Total 600 ml 960 ml Balance 600 ml 960 ml Assessment & Plan Problem List: (1) Paranoid type schizophrenia, chronic state ICD Codes: F20.0 - Paranoid schizophrenia Status: Acute Assessment & Plan Estimated LOS: days patient continues delusional psychotic at times intrusive. Compliant medication. Depakote level drawn this a.m. is 77 Justification for Cont. Inpt. At this time patient decompensated place to the lower level of care Discharge Planning Continue to await word from [facility] Hospital placement Request HC Surrog/Guard Advoc?: No Kt Bruce MD Sep 17, 2017 13:48
[2017-09-17 18:43] VITALS: BP 106/76; PULSE 74; RESP 18; TEMP 98.6; O2SAT 96
[2017-09-17] MEDS: diphenhydrAMINE HCL 25 MG CAP PO SCH (21:59)
[2017-09-17] MEDS: ATORVASTATIN 10 MG TAB PO SCH (21:59)
[2017-09-17] MEDS: DIVALPROEX SODIUM SPRINKLES 125 MG CAP PO SCH (22:00)
[2017-09-18 05:59] VITALS: BP 115/58; PULSE 72; RESP 16; TEMP 97.3; O2SAT 92
[2017-09-18 08:00] VITALS: BP 106/63
[2017-09-18] MEDS: TRIAMCINOLONE ACETONIDE 0.1% OINT 15 GM TUBE TOPICAL SCH ×2 (09:00→21:00)
[2017-09-18] MEDS: BUDESONIDE-FORMOTEROL 80/4.5 MCG INHALER INH SCH ×2 (09:00→21:00)
[2017-09-18] MEDS: NICOTINE 21 MG/24 HR PATCH T-DERMAL SCH (09:00)
[2017-09-18] MEDS: METOPROLOL TARTRATE 25 MG TAB PO SCH (09:00)
[2017-09-18] MEDS: ASPIRIN EC 81 MG TABEC PO SCH (09:34)
[2017-09-18] MEDS: SODIUM CHLORIDE 1 GRAM TAB PO SCH (09:34)
[2017-09-18] MEDS: CETIRIZINE HCL 10 MG TAB PO SCH (09:34)
[2017-09-18] MEDS: DIVALPROEX SODIUM E.R. 500 MG TAB PO SCH (09:34)
[2017-09-18] MEDS: LACTULOSE SYRUP 20 GM/30 ML CUP PO SCH ×2 (09:34→21:59)
[2017-09-18] MEDS: OXcarbazepine 300 MG TAB PO SCH ×2 (09:34→21:57)
--- NOTE | 2017-09-18 17:07 | HHI.PYPN ---
Subjective Remarks Pt seen and discussed with staff. She has been compliant and cooperative with care. No agitation or aggression. No medication side effects. No SI/HI Mental Status Examination Appearance: Disheveled Consciousness: Alert Orientation: Person (at least) Motor Activity: Other (no motoric abnormalities noted) Speech: Rapid, Other (rambling) Language: Other (markedly disorganized) Fund of Knowledge: Inadequate Attention and Concentration: Other (poor) Memory: Impaired Mood: Irritable (mild) Affect: Blunt Thought Process & Associations: Tangential Thought Content: Bizarre thinking, Delusional Hallucination Type: None (appears internally stimulated) Delusion Type: None, Paranoid Suicidal Ideation: No Suicidal Plan: No Suicidal Intention: No Homicidal Ideation: No Homicidal Plan: No Homicidal Intention: No Insight: Poor Judgment: Poor Results Vitals/IOs Vital Signs Date Time Temp Pulse Resp B/P (MAP) Pulse Ox O2 Delivery O2 Flow Rate FiO2 09/18/17 05:59 97.3 72 16 115/58 (77) 92 Assessment & Plan Problem List: (1) Paranoid type schizophrenia, chronic state ICD Codes: F20.0 - Paranoid schizophrenia Status: Acute Assessment & Plan Continue current tx plan. Estimated LOS: days Justification for Cont. Inpt. risk of decompensation Request HC Surrog/Guard Advoc?: Ivy Wilhelm MD Sep 18, 2017 17:07
[2017-09-18 18:22] VITALS: BP 115/62; PULSE 70; RESP 16; TEMP 98; O2SAT 93
[2017-09-18] MEDS: ATORVASTATIN 10 MG TAB PO SCH (21:00)
[2017-09-18] MEDS: DIVALPROEX SODIUM SPRINKLES 125 MG CAP PO SCH (21:56)
[2017-09-18] MEDS: diphenhydrAMINE HCL 25 MG CAP PO SCH (21:57)
[2017-09-19 05:32] VITALS: BP 124/74; PULSE 78; RESP 16; TEMP 97.5; O2SAT 95
[2017-09-19] MEDS: LACTULOSE SYRUP 20 GM/30 ML CUP PO SCH ×2 (09:00→21:58)
[2017-09-19] MEDS: NICOTINE 21 MG/24 HR PATCH T-DERMAL SCH (09:00)
[2017-09-19] MEDS: TRIAMCINOLONE ACETONIDE 0.1% OINT 15 GM TUBE TOPICAL SCH ×2 (09:00→21:00)
[2017-09-19] MEDS: BUDESONIDE-FORMOTEROL 80/4.5 MCG INHALER INH SCH ×2 (09:00→21:00)
[2017-09-19] MEDS: DIVALPROEX SODIUM E.R. 500 MG TAB PO SCH (09:40)
[2017-09-19] MEDS: CETIRIZINE HCL 10 MG TAB PO SCH (09:40)
[2017-09-19] MEDS: ASPIRIN EC 81 MG TABEC PO SCH (09:40)
[2017-09-19] MEDS: OXcarbazepine 300 MG TAB PO SCH ×2 (09:41→21:59)
[2017-09-19] MEDS: SODIUM CHLORIDE 1 GRAM TAB PO SCH (09:41)
[2017-09-19] MEDS: METOPROLOL TARTRATE 25 MG TAB PO SCH (09:41)
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
[2017-09-19 17:16] VITALS: BP 111/65; PULSE 82; RESP 16; TEMP 98.2; O2SAT 95
[2017-09-19] MEDS: diphenhydrAMINE HCL 25 MG CAP PO SCH (21:59)
[2017-09-19] MEDS: ATORVASTATIN 10 MG TAB PO SCH (21:59)
[2017-09-19] MEDS: DIVALPROEX SODIUM SPRINKLES 125 MG CAP PO SCH (21:59)
[2017-09-20 05:49] VITALS: BP 116/68; PULSE 71; RESP 16; TEMP 97.5; O2SAT 94
[2017-09-20] MEDS: LACTULOSE SYRUP 20 GM/30 ML CUP PO SCH ×2 (08:17→21:03)
[2017-09-20] MEDS: OXcarbazepine 300 MG TAB PO SCH ×2 (08:17→21:02)
[2017-09-20] MEDS: CETIRIZINE HCL 10 MG TAB PO SCH (08:17)
[2017-09-20] MEDS: DIVALPROEX SODIUM E.R. 500 MG TAB PO SCH (08:17)
[2017-09-20] MEDS: SODIUM CHLORIDE 1 GRAM TAB PO SCH (08:17)
[2017-09-20] MEDS: METOPROLOL TARTRATE 25 MG TAB PO SCH (08:17)
[2017-09-20] MEDS: BUDESONIDE-FORMOTEROL 80/4.5 MCG INHALER INH SCH ×2 (08:18→21:01)
[2017-09-20] MEDS: ASPIRIN EC 81 MG TABEC PO SCH (08:18)
[2017-09-20] MEDS: NICOTINE 21 MG/24 HR PATCH T-DERMAL SCH (08:20)
[2017-09-20] MEDS: TRIAMCINOLONE ACETONIDE 0.1% OINT 15 GM TUBE TOPICAL SCH ×2 (08:21→21:00)
--- NOTE | 2017-09-20 17:07 | HHI.PYPN ---
Subjective Remarks Patient seen today in [facility] with floor staff, chart review, patient compliant medications. Patient no significant behavioral problems, still wishes to return to her senior care will we continue to await word from [facility]. Considering patient's significant recidivism when return to her senior care. Review of Systems Except as stated in HPI: all other systems reviewed are Neg Mental Status Examination Appearance: Disheveled Consciousness: Alert Orientation: Person (at least) Motor Activity: Other (no motoric abnormalities noted) Speech: Rapid, Other (rambling) Language: Other (markedly disorganized) Fund of Knowledge: Inadequate Attention and Concentration: Other (poor) Memory: Impaired Mood: Irritable (mild) Affect: Blunt Thought Process & Associations: Tangential Thought Content: Bizarre thinking, Delusional Hallucination Type: None (appears internally stimulated) Delusion Type: None, Paranoid Suicidal Ideation: No Suicidal Plan: No Suicidal Intention: No Homicidal Ideation: No Homicidal Plan: No Homicidal Intention: No Insight: Poor Judgment: Poor Results Vitals/IOs Vital Signs Date Time Temp Pulse Resp B/P (MAP) Pulse Ox O2 Delivery O2 Flow Rate FiO2 09/20/17 05:49 97.5 71 16 116/68 (04) 94 Assessment & Plan Problem List: (1) Paranoid type schizophrenia, chronic state ICD Codes: F20.0 - Paranoid schizophrenia Status: Acute Assessment & Plan Estimated LOS: days patient continues somewhat delusional psychotic though no significant behavioral problems at this time. Compliant medication. Justification for Cont. Inpt. At this time patient decompensate the placement low level of care continued with word from [facility] referral Discharge Planning Continue to await word from [facility] referral Request HC Surrog/Guard Advoc?: No Kt Bruce MD Sep 20, 2017 17:07
[2017-09-20 18:00] VITALS: BP 104/59; PULSE 66; RESP 16; TEMP 97; O2SAT 97
[2017-09-20] MEDS: DIVALPROEX SODIUM SPRINKLES 125 MG CAP PO SCH (21:02)
[2017-09-20] MEDS: diphenhydrAMINE HCL 25 MG CAP PO SCH (21:03)
[2017-09-20] MEDS: ATORVASTATIN 10 MG TAB PO SCH (21:03)
[2017-09-21 05:23] VITALS: BP 134/75; PULSE 78; RESP 18; TEMP 97.7; O2SAT 95
[2017-09-21 08:41] VITALS: BP 134/75; PULSE 78; RESP 18; TEMP 97.7; O2SAT 98
[2017-09-21] MEDS: NICOTINE 21 MG/24 HR PATCH T-DERMAL SCH (09:00)
[2017-09-21] MEDS: TRIAMCINOLONE ACETONIDE 0.1% OINT 15 GM TUBE TOPICAL SCH ×2 (09:00→21:00)
[2017-09-21] MEDS: BUDESONIDE-FORMOTEROL 80/4.5 MCG INHALER INH SCH ×2 (09:00→21:00)
[2017-09-21] MEDS: METOPROLOL TARTRATE 25 MG TAB PO SCH (09:13)
[2017-09-21] MEDS: OXcarbazepine 300 MG TAB PO SCH ×2 (09:13→20:59)
[2017-09-21] MEDS: DIVALPROEX SODIUM E.R. 500 MG TAB PO SCH (09:13)
[2017-09-21] MEDS: ASPIRIN EC 81 MG TABEC PO SCH (09:13)
[2017-09-21] MEDS: CETIRIZINE HCL 10 MG TAB PO SCH (09:14)
[2017-09-21] MEDS: LACTULOSE SYRUP 20 GM/30 ML CUP PO SCH ×2 (09:14→21:00)
[2017-09-21] MEDS: SODIUM CHLORIDE 1 GRAM TAB PO SCH (09:15)
--- NOTE | 2017-09-21 14:01 | HHI.PYPN ---
Subjective Remarks Patient seen in her room with nurse Joann, patient laying in bed, patient is been no significant behavioral problems, she is compliant with medications. However there is no significant changes in a delusions related to her relationship with various other residents of [facility]. We continue to await word from [facility] placement Review of Systems Except as stated in HPI: all other systems reviewed are Neg Mental Status Examination Appearance: Disheveled Consciousness: Alert Orientation: Person (at least) Motor Activity: Other (no motoric abnormalities noted) Speech: Rapid, Other (rambling) Language: Other (markedly disorganized) Fund of Knowledge: Inadequate Attention and Concentration: Other (poor) Memory: Impaired Mood: Irritable (mild) Affect: Blunt Thought Process & Associations: Tangential Thought Content: Bizarre thinking, Delusional Hallucination Type: None (appears internally stimulated) Delusion Type: None, Paranoid Suicidal Ideation: No Suicidal Plan: No Suicidal Intention: No Homicidal Ideation: No Homicidal Plan: No Homicidal Intention: No Insight: Poor Judgment: Poor Results Vitals/IOs Vital Signs Date Time Temp Pulse Resp B/P (MAP) Pulse Ox O2 Delivery O2 Flow Rate FiO2 09/21/17 08:41 97.7 78 18 134/75 (94) 98 Intake and Output 09/21/17 09/21/17 09/22/17 08:00 16:00 00:00 Intake Total 480 ml Balance 480 ml Assessment & Plan Problem List: (1) Paranoid type schizophrenia, chronic state ICD Codes: F20.0 - Paranoid schizophrenia Status: Acute Assessment & Plan Estimated LOS: days patient continues psychotic and delusional, though no behavior problems. Continue to await word from [facility] placement Justification for Cont. Inpt. At this time patient decompensate to placed a lower level of care, we also continue to wait for [facility] placement Discharge Planning Continue to await state hospital placement Request HC Surrog/Guard Advoc?: No Kt Bruce MD Sep 21, 2017 14:01
[2017-09-21 17:50] VITALS: BP 111/59; PULSE 110; PULSE 73; RESP 16; TEMP 97.2; O2SAT 92
[2017-09-21] MEDS: diphenhydrAMINE HCL 25 MG CAP PO SCH (20:58)
[2017-09-21] MEDS: ATORVASTATIN 10 MG TAB PO SCH (21:02)
[2017-09-21] MEDS: DIVALPROEX SODIUM SPRINKLES 125 MG CAP PO SCH (21:02)
[2017-09-22 06:49] VITALS: BP 114/63; PULSE 75; RESP 18; TEMP 97.6; O2SAT 99
[2017-09-22] MEDS: NICOTINE 21 MG/24 HR PATCH T-DERMAL SCH (09:00)
[2017-09-22] MEDS: TRIAMCINOLONE ACETONIDE 0.1% OINT 15 GM TUBE TOPICAL SCH ×2 (09:00→20:53)
[2017-09-22] MEDS: BUDESONIDE-FORMOTEROL 80/4.5 MCG INHALER INH SCH ×2 (09:00→20:36)
[2017-09-22] MEDS: CETIRIZINE HCL 10 MG TAB PO SCH (09:14)
[2017-09-22] MEDS: DIVALPROEX SODIUM E.R. 500 MG TAB PO SCH (09:14)
[2017-09-22] MEDS: ASPIRIN EC 81 MG TABEC PO SCH (09:15)
[2017-09-22] MEDS: METOPROLOL TARTRATE 25 MG TAB PO SCH (09:15)
[2017-09-22] MEDS: OXcarbazepine 300 MG TAB PO SCH ×2 (09:15→20:38)
[2017-09-22] MEDS: SODIUM CHLORIDE 1 GRAM TAB PO SCH (09:15)
[2017-09-22] MEDS: LACTULOSE SYRUP 20 GM/30 ML CUP PO SCH ×2 (09:15→20:37)
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
[2017-09-22 18:00] VITALS: BP 119/66; PULSE 73; RESP 16; TEMP 97.3; O2SAT 99
[2017-09-22] MEDS: ATORVASTATIN 10 MG TAB PO SCH (20:39)
[2017-09-22] MEDS: diphenhydrAMINE HCL 25 MG CAP PO SCH (20:39)
[2017-09-22] MEDS: DIVALPROEX SODIUM SPRINKLES 125 MG CAP PO SCH (20:40)
[2017-09-23 05:03] VITALS: BP 125/84; PULSE 70; RESP 16; TEMP 97.4; O2SAT 98
[2017-09-23] MEDS: TRIAMCINOLONE ACETONIDE 0.1% OINT 15 GM TUBE TOPICAL SCH ×2 (09:00→20:51)
[2017-09-23] MEDS: BUDESONIDE-FORMOTEROL 80/4.5 MCG INHALER INH SCH ×2 (09:00→20:44)
[2017-09-23] MEDS: NICOTINE 21 MG/24 HR PATCH T-DERMAL SCH (09:00)
[2017-09-23] MEDS: DIVALPROEX SODIUM E.R. 500 MG TAB PO SCH (09:08)
[2017-09-23] MEDS: ASPIRIN EC 81 MG TABEC PO SCH (09:08)
[2017-09-23] MEDS: SODIUM CHLORIDE 1 GRAM TAB PO SCH (09:08)
[2017-09-23] MEDS: OXcarbazepine 300 MG TAB PO SCH ×2 (09:08→20:47)
[2017-09-23] MEDS: CETIRIZINE HCL 10 MG TAB PO SCH (09:08)
[2017-09-23] MEDS: LACTULOSE SYRUP 20 GM/30 ML CUP PO SCH ×2 (09:09→20:47)
[2017-09-23] MEDS: METOPROLOL TARTRATE 25 MG TAB PO SCH (09:09)
--- NOTE | 2017-09-23 13:26 | HHI.PYPN ---
Subjective Remarks Patient seen in her room with nurse Joann, chart reviewed, patient compliant medication. Patient continues to focus on discharge, the whereabouts of her possessions. The difficult she's had with placements in roommates. She continues to show little insight into her own behaviors. Continue to await word from [facility] placement Review of Systems Except as stated in HPI: all other systems reviewed are Neg Mental Status Examination Appearance: Disheveled Consciousness: Alert Orientation: Person (at least) Motor Activity: Other (no motoric abnormalities noted) Speech: Rapid, Other (rambling) Language: Other (markedly disorganized) Fund of Knowledge: Inadequate Attention and Concentration: Other (poor) Memory: Impaired Mood: Irritable (mild) Affect: Blunt Thought Process & Associations: Tangential Thought Content: Bizarre thinking, Delusional Hallucination Type: None (appears internally stimulated) Delusion Type: None, Paranoid Suicidal Ideation: No Suicidal Plan: No Suicidal Intention: No Homicidal Ideation: No Homicidal Plan: No Homicidal Intention: No Insight: Poor Judgment: Poor Results Vitals/IOs Vital Signs Date Time Temp Pulse Resp B/P (MAP) Pulse Ox O2 Delivery O2 Flow Rate FiO2 09/23/17 05:03 97.4 70 16 125/84 (98) 98 Intake and Output 09/23/17 09/23/17 09/24/17 08:00 16:00 00:00 Intake Total 480 ml Balance 480 ml Assessment & Plan Problem List: (1) Paranoid type schizophrenia, chronic state ICD Codes: F20.0 - Paranoid schizophrenia Status: Acute Assessment & Plan Estimated LOS: days patient continue psychotic and delusional, but no behavioral problems. Compliant medications. Continue to await word from [facility] placement Justification for Cont. Inpt. At this time patient will decompensate and placed in a lower level of care Discharge Planning Continue to await word state placement Request HC Surrog/Guard Advoc?: No Kt Bruce MD Sep 23, 2017 13:26
[2017-09-23 18:29] VITALS: BP 114/67; PULSE 67; RESP 18; TEMP 98.2; O2SAT 95
[2017-09-23] MEDS: diphenhydrAMINE HCL 25 MG CAP PO SCH (20:46)
[2017-09-23] MEDS: DIVALPROEX SODIUM SPRINKLES 125 MG CAP PO SCH (20:46)
[2017-09-23] MEDS: ATORVASTATIN 10 MG TAB PO SCH (20:46)
[2017-09-24 04:55] VITALS: BP 120/60; PULSE 72; RESP 16; TEMP 97.6; O2SAT 97
[2017-09-24] MEDS: NICOTINE 21 MG/24 HR PATCH T-DERMAL SCH (07:27)
[2017-09-24] MEDS: DIVALPROEX SODIUM E.R. 500 MG TAB PO SCH (08:31)
[2017-09-24] MEDS: METOPROLOL TARTRATE 25 MG TAB PO SCH (08:31)
[2017-09-24] MEDS: LACTULOSE SYRUP 20 GM/30 ML CUP PO SCH ×2 (08:31→21:00)
[2017-09-24] MEDS: ASPIRIN EC 81 MG TABEC PO SCH (08:31)
[2017-09-24] MEDS: SODIUM CHLORIDE 1 GRAM TAB PO SCH (08:31)
[2017-09-24] MEDS: BUDESONIDE-FORMOTEROL 80/4.5 MCG INHALER INH SCH ×2 (08:31→21:00)
[2017-09-24] MEDS: OXcarbazepine 300 MG TAB PO SCH ×2 (08:31→21:00)
[2017-09-24] MEDS: CETIRIZINE HCL 10 MG TAB PO SCH (08:33)
[2017-09-24] MEDS: TRIAMCINOLONE ACETONIDE 0.1% OINT 15 GM TUBE TOPICAL SCH ×2 (08:33→21:00)
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
[2017-09-24 18:20] VITALS: BP 130/60; PULSE 84; RESP 18; TEMP 98; O2SAT 94
[2017-09-24] MEDS: DIVALPROEX SODIUM SPRINKLES 125 MG CAP PO SCH (21:00)
[2017-09-24] MEDS: diphenhydrAMINE HCL 25 MG CAP PO SCH (21:00)
[2017-09-24] MEDS: ATORVASTATIN 10 MG TAB PO SCH (21:00)
[2017-09-25 05:58] VITALS: BP 109/62; PULSE 75; RESP 16; TEMP 97.5; O2SAT 96
[2017-09-25] MEDS: METOPROLOL TARTRATE 25 MG TAB PO SCH (08:54)
[2017-09-25] MEDS: CETIRIZINE HCL 10 MG TAB PO SCH (08:54)
[2017-09-25] MEDS: LACTULOSE SYRUP 20 GM/30 ML CUP PO SCH ×2 (08:54→20:53)
[2017-09-25] MEDS: OXcarbazepine 300 MG TAB PO SCH ×2 (08:54→20:55)
[2017-09-25] MEDS: SODIUM CHLORIDE 1 GRAM TAB PO SCH (08:55)
[2017-09-25] MEDS: DIVALPROEX SODIUM E.R. 500 MG TAB PO SCH (08:55)
[2017-09-25] MEDS: BUDESONIDE-FORMOTEROL 80/4.5 MCG INHALER INH SCH ×2 (08:55→20:56)
[2017-09-25] MEDS: NICOTINE 21 MG/24 HR PATCH T-DERMAL SCH (08:55)
[2017-09-25] MEDS: ASPIRIN EC 81 MG TABEC PO SCH (08:55)
[2017-09-25] MEDS: TRIAMCINOLONE ACETONIDE 0.1% OINT 15 GM TUBE TOPICAL SCH ×2 (08:58→20:56)
--- NOTE | 2017-09-25 11:42 | HHI.PYPN ---
Subjective Remarks Patient was seen and case discussed with nursing. Patient is pleasant and cooperative with exam. Continues to be disheveled and grossly disorganized. Compliant with medications and tolerating it well. Behaving well on the unit Mental Status Examination Appearance: Disheveled Consciousness: Alert Orientation: Person (at least) Motor Activity: Other (no motoric abnormalities noted) Speech: Rapid, Other (rambling) Language: Other (markedly disorganized) Fund of Knowledge: Inadequate Attention and Concentration: Other (poor) Memory: Impaired Mood: Irritable (mild) Affect: Blunt Thought Process & Associations: Tangential Thought Content: Bizarre thinking, Delusional Hallucination Type: None (appears internally stimulated) Delusion Type: None, Paranoid Suicidal Ideation: No Suicidal Plan: No Suicidal Intention: No Homicidal Ideation: No Homicidal Plan: No Homicidal Intention: No Insight: Poor Judgment: Poor Results Vitals/IOs Vital Signs Date Time Temp Pulse Resp B/P (MAP) Pulse Ox O2 Delivery O2 Flow Rate FiO2 09/25/17 05:58 97.5 75 16 109/62 (78) 96 Assessment & Plan Problem List: (1) Paranoid type schizophrenia, chronic state ICD Codes: F20.0 - Paranoid schizophrenia Status: Acute Assessment & Plan Continue current treatment plan Justification for Cont. Inpt. Patient would decompensate in a less restrictive setting Request HC Surrog/Guard Advoc?: No Evans Redding DO Sep 25, 2017 11:42
[2017-09-25 17:19] VITALS: BP 112/60; PULSE 83; RESP 17; TEMP 98.1; O2SAT 95
[2017-09-25] MEDS: DIVALPROEX SODIUM SPRINKLES 125 MG CAP PO SCH (20:55)
[2017-09-25] MEDS: ATORVASTATIN 10 MG TAB PO SCH (20:55)
[2017-09-25] MEDS: diphenhydrAMINE HCL 25 MG CAP PO SCH (20:55)
[2017-09-26 06:00] VITALS: BP 124/64; PULSE 70; RESP 16; TEMP 98; O2SAT 96
[2017-09-26] MEDS: SODIUM CHLORIDE 1 GRAM TAB PO SCH (09:00)
[2017-09-26] MEDS: BUDESONIDE-FORMOTEROL 80/4.5 MCG INHALER INH SCH ×2 (09:00→20:34)
[2017-09-26] MEDS: NICOTINE 21 MG/24 HR PATCH T-DERMAL SCH (09:00)
[2017-09-26] MEDS: TRIAMCINOLONE ACETONIDE 0.1% OINT 15 GM TUBE TOPICAL SCH ×2 (09:00→20:37)
[2017-09-26] MEDS: CETIRIZINE HCL 10 MG TAB PO SCH (09:37)
[2017-09-26] MEDS: METOPROLOL TARTRATE 25 MG TAB PO SCH (09:37)
[2017-09-26] MEDS: DIVALPROEX SODIUM E.R. 500 MG TAB PO SCH (09:37)
[2017-09-26] MEDS: ASPIRIN EC 81 MG TABEC PO SCH (09:37)
[2017-09-26] MEDS: OXcarbazepine 300 MG TAB PO SCH ×2 (09:37→20:37)
[2017-09-26] MEDS: LACTULOSE SYRUP 20 GM/30 ML CUP PO SCH ×2 (09:38→20:35)
--- NOTE | 2017-09-26 13:25 | HHI.PYPN ---
Subjective Remarks Patient was seen and case discussed with nursing. Patient is pleasant and cooperative with exam. Behaving well on the unit. Compliant with her medications. Remains grossly psychotic and internally preoccupied Mental Status Examination Appearance: Disheveled Consciousness: Alert Orientation: Person (at least) Motor Activity: Other (no motoric abnormalities noted) Speech: Rapid, Other (rambling) Language: Other (markedly disorganized) Fund of Knowledge: Inadequate Attention and Concentration: Other (poor) Memory: Impaired Mood: Irritable (mild) Affect: Blunt Thought Process & Associations: Tangential Thought Content: Bizarre thinking, Delusional Hallucination Type: None (appears internally stimulated) Delusion Type: None, Paranoid Suicidal Ideation: No Suicidal Plan: No Suicidal Intention: No Homicidal Ideation: No Homicidal Plan: No Homicidal Intention: No Insight: Poor Judgment: Poor Results Vitals/IOs Vital Signs Date Time Temp Pulse Resp B/P (MAP) Pulse Ox O2 Delivery O2 Flow Rate FiO2 09/26/17 06:00 98.0 70 16 124/64 (84) 96 Assessment & Plan Problem List: (1) Paranoid type schizophrenia, chronic state ICD Codes: F20.0 - Paranoid schizophrenia Status: Acute Assessment & Plan Continue current treatment plan Justification for Cont. Inpt. Patient will decompensate in a less restrictive setting Request HC Surrog/Guard Advoc?: No Evans Redding DO Sep 26, 2017 13:24
[2017-09-26 18:29] VITALS: BP 116/78; PULSE 82; RESP 17; TEMP 98.3; O2SAT 95
[2017-09-26] MEDS: diphenhydrAMINE HCL 25 MG CAP PO SCH (20:36)
[2017-09-26] MEDS: DIVALPROEX SODIUM SPRINKLES 125 MG CAP PO SCH (20:36)
[2017-09-26] MEDS: ATORVASTATIN 10 MG TAB PO SCH (20:37)
[2017-09-26] MEDS: TRIAMCINOLONE ACETONIDE 0.1% CREAM 15 GM EXTERNAL PRN (21:23)
[2017-09-27 06:04] VITALS: BP 122/64; PULSE 70; RESP 16; TEMP 97.9; O2SAT 96
[2017-09-27] MEDS: BUDESONIDE-FORMOTEROL 80/4.5 MCG INHALER INH SCH ×2 (08:39→20:45)
[2017-09-27] MEDS: METOPROLOL TARTRATE 25 MG TAB PO SCH (08:40)
[2017-09-27] MEDS: DIVALPROEX SODIUM E.R. 500 MG TAB PO SCH (08:40)
[2017-09-27] MEDS: LACTULOSE SYRUP 20 GM/30 ML CUP PO SCH ×2 (08:40→20:22)
[2017-09-27] MEDS: OXcarbazepine 300 MG TAB PO SCH ×2 (08:40→20:23)
[2017-09-27] MEDS: NICOTINE 21 MG/24 HR PATCH T-DERMAL SCH (08:40)
[2017-09-27] MEDS: SODIUM CHLORIDE 1 GRAM TAB PO SCH (08:40)
[2017-09-27] MEDS: ASPIRIN EC 81 MG TABEC PO SCH (08:40)
[2017-09-27] MEDS: TRIAMCINOLONE ACETONIDE 0.1% OINT 15 GM TUBE TOPICAL SCH ×2 (08:41→20:45)
[2017-09-27] MEDS: CETIRIZINE HCL 10 MG TAB PO SCH (09:00)
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
[2017-09-27 18:16] VITALS: BP 117/71; PULSE 73; RESP 18; TEMP 98; O2SAT 95
[2017-09-27] MEDS: DIVALPROEX SODIUM SPRINKLES 125 MG CAP PO SCH (20:23)
[2017-09-27] MEDS: diphenhydrAMINE HCL 25 MG CAP PO SCH (20:23)
[2017-09-27] MEDS: ATORVASTATIN 10 MG TAB PO SCH (20:24)
[2017-09-28 05:51] VITALS: BP 111/61; PULSE 74; RESP 16; TEMP 97.6; O2SAT 93
[2017-09-28 05:52] VITALS: BP 130/74; PULSE 73; RESP 16; TEMP 98.2; O2SAT 97
[2017-09-28] MEDS: LACTULOSE SYRUP 20 GM/30 ML CUP PO SCH ×2 (08:14→20:26)
[2017-09-28] MEDS: ASPIRIN EC 81 MG TABEC PO SCH (08:14)
[2017-09-28] MEDS: SODIUM CHLORIDE 1 GRAM TAB PO SCH (08:14)
[2017-09-28] MEDS: OXcarbazepine 300 MG TAB PO SCH ×2 (08:14→20:26)
[2017-09-28] MEDS: CETIRIZINE HCL 10 MG TAB PO SCH (08:14)
[2017-09-28] MEDS: METOPROLOL TARTRATE 25 MG TAB PO SCH (08:14)
[2017-09-28] MEDS: DIVALPROEX SODIUM E.R. 500 MG TAB PO SCH (08:14)
[2017-09-28] MEDS: BUDESONIDE-FORMOTEROL 80/4.5 MCG INHALER INH SCH ×2 (08:15→20:26)
[2017-09-28] MEDS: NICOTINE 21 MG/24 HR PATCH T-DERMAL SCH (08:16)
[2017-09-28] MEDS: TRIAMCINOLONE ACETONIDE 0.1% OINT 15 GM TUBE TOPICAL SCH ×2 (08:16→20:26)
--- NOTE | 2017-09-28 10:03 | HHI.PYPN ---
Subjective Remarks Patient seen in her room with floor staff, chart reviewed, patient compliant medications. Patient continues to be perseverative about [facility] in a [facility] though she also is continuing delusions paranoia related to relationship with various other residents at that facility. We continue to await word from the [facility] Review of Systems Except as stated in HPI: all other systems reviewed are Neg Mental Status Examination Appearance: Disheveled Consciousness: Alert Orientation: Person (at least) Motor Activity: Other (no motoric abnormalities noted) Speech: Rapid, Other (rambling) Language: Other (markedly disorganized) Fund of Knowledge: Inadequate Attention and Concentration: Other (poor) Memory: Impaired Mood: Irritable (mild) Affect: Blunt Thought Process & Associations: Tangential Thought Content: Bizarre thinking, Delusional Hallucination Type: None (appears internally stimulated) Delusion Type: None, Paranoid Suicidal Ideation: No Suicidal Plan: No Suicidal Intention: No Homicidal Ideation: No Homicidal Plan: No Homicidal Intention: No Insight: Poor Judgment: Poor Results Vitals/IOs Vital Signs Date Time Temp Pulse Resp B/P (MAP) Pulse Ox O2 Delivery O2 Flow Rate FiO2 09/28/17 05:52 98.2 73 16 130/74 (92) 97 Assessment & Plan Problem List: (1) Paranoid type schizophrenia, chronic state ICD Codes: F20.0 - Paranoid schizophrenia Status: Acute Assessment & Plan Estimated LOS: days patient continues psychotic and delusional, compliant medications, [facility] to [facility]ification for Cont. Inpt. At this time patient will decompensate and placed in the lower level of care Discharge Planning [facility] to [facility] Request HC Surrog/Guard Advoc?: No Kt Bruce MD Sep 28, 2017 10:03
[2017-09-28 18:18] VITALS: BP 118/62; PULSE 76; RESP 18; TEMP 98; O2SAT 95
[2017-09-28] MEDS: diphenhydrAMINE HCL 25 MG CAP PO SCH (20:26)
[2017-09-28] MEDS: DIVALPROEX SODIUM SPRINKLES 125 MG CAP PO SCH (20:26)
[2017-09-28] MEDS: ATORVASTATIN 10 MG TAB PO SCH (20:26)
[2017-09-29 05:39] VITALS: BP 123/82; PULSE 62; RESP 16; TEMP 97.3; O2SAT 95
[2017-09-29] MEDS: OXcarbazepine 300 MG TAB PO SCH ×2 (08:29→21:00)
[2017-09-29] MEDS: ASPIRIN EC 81 MG TABEC PO SCH (08:29)
[2017-09-29] MEDS: DIVALPROEX SODIUM E.R. 500 MG TAB PO SCH (08:29)
[2017-09-29] MEDS: SODIUM CHLORIDE 1 GRAM TAB PO SCH (08:29)
[2017-09-29] MEDS: CETIRIZINE HCL 10 MG TAB PO SCH (08:29)
[2017-09-29] MEDS: METOPROLOL TARTRATE 25 MG TAB PO SCH (08:30)
[2017-09-29] MEDS: LACTULOSE SYRUP 20 GM/30 ML CUP PO SCH ×2 (08:30→21:00)
[2017-09-29] MEDS: BUDESONIDE-FORMOTEROL 80/4.5 MCG INHALER INH SCH ×2 (08:33→21:00)
[2017-09-29] MEDS: TRIAMCINOLONE ACETONIDE 0.1% OINT 15 GM TUBE TOPICAL SCH ×2 (09:00→21:00)
[2017-09-29] MEDS: NICOTINE 21 MG/24 HR PATCH T-DERMAL SCH (09:00)
--- NOTE | 2017-09-29 12:41 | HHI.PYPN ---
Subjective Remarks Patient seen in her room the floor staff, chart review, patient compliant medication. Patient continues little socialization, in room much of the time. She continues to perseverate on wanting to return to [facility] though she also continues with her delusions related to other residents there and her roommates. Depakote level drawn on 09/27 came back at 98. We [facility] to [facility] Review of Systems Except as stated in HPI: all other systems reviewed are Neg Mental Status Examination Appearance: Disheveled Consciousness: Alert Orientation: Person (at least) Motor Activity: Other (no motoric abnormalities noted) Speech: Rapid, Other (rambling) Language: Other (markedly disorganized) Fund of Knowledge: Inadequate Attention and Concentration: Other (poor) Memory: Impaired Mood: Irritable (mild) Affect: Blunt Thought Process & Associations: Tangential Thought Content: Bizarre thinking, Delusional Hallucination Type: None (appears internally stimulated) Delusion Type: None, Paranoid Suicidal Ideation: No Suicidal Plan: No Suicidal Intention: No Homicidal Ideation: No Homicidal Plan: No Homicidal Intention: No Insight: Poor Judgment: Poor Results Vitals/IOs Vital Signs Date Time Temp Pulse Resp B/P (MAP) Pulse Ox O2 Delivery O2 Flow Rate FiO2 09/29/17 05:39 97.3 62 16 123/82 (96) 95 Assessment & Plan Problem List: (1) Paranoid type schizophrenia, chronic state ICD Codes: F20.0 - Paranoid schizophrenia Status: Acute Assessment & Plan Estimated LOS: days patient continues delusional psychotic, but no behavior problems. Continue to wait for word [facility] Justification for Cont. Inpt. At this time patient decompensated placed a lower level of care Discharge Planning Continue to await [facility] Request HC Surrog/Guard Advoc?: No Kt Bruce MD Sep 29, 2017 12:41
[2017-09-29 18:00] VITALS: BP 118/69; PULSE 89; RESP 18; TEMP 98.6; O2SAT 96
[2017-09-29] MEDS: ATORVASTATIN 10 MG TAB PO SCH (21:00)
[2017-09-29] MEDS: DIVALPROEX SODIUM SPRINKLES 125 MG CAP PO SCH (21:00)
[2017-09-29] MEDS: diphenhydrAMINE HCL 25 MG CAP PO SCH (21:00)
[2017-09-30 05:26] VITALS: BP 122/68; PULSE 74; RESP 16; TEMP 97.9; O2SAT 96
[2017-09-30] MEDS: LACTULOSE SYRUP 20 GM/30 ML CUP PO SCH ×2 (09:00→21:05)
[2017-09-30] MEDS: NICOTINE 21 MG/24 HR PATCH T-DERMAL SCH (09:00)
[2017-09-30] MEDS: DIVALPROEX SODIUM E.R. 500 MG TAB PO SCH (09:00)
[2017-09-30] MEDS: METOPROLOL TARTRATE 25 MG TAB PO SCH (09:00)
[2017-09-30] MEDS: TRIAMCINOLONE ACETONIDE 0.1% OINT 15 GM TUBE TOPICAL SCH ×2 (09:00→21:00)
[2017-09-30] MEDS: OXcarbazepine 300 MG TAB PO SCH ×2 (09:00→21:06)
[2017-09-30] MEDS: CETIRIZINE HCL 10 MG TAB PO SCH (09:00)
[2017-09-30] MEDS: SODIUM CHLORIDE 1 GRAM TAB PO SCH (09:00)
[2017-09-30] MEDS: ASPIRIN EC 81 MG TABEC PO SCH (09:00)
[2017-09-30] MEDS: BUDESONIDE-FORMOTEROL 80/4.5 MCG INHALER INH SCH ×2 (09:00→21:00)
[2017-09-30] MEDS: [UNRECOGNIZED DRUG - OTHER] IM SCH (11:00)
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
[2017-09-30 18:38] VITALS: BP 122/65; PULSE 85; RESP 16; TEMP 97.8; O2SAT 95
[2017-09-30] MEDS: DIVALPROEX SODIUM SPRINKLES 125 MG CAP PO SCH (21:06)
[2017-09-30] MEDS: ATORVASTATIN 10 MG TAB PO SCH (21:06)
[2017-09-30] MEDS: diphenhydrAMINE HCL 25 MG CAP PO SCH (21:06)
[2017-10-01 06:08] VITALS: BP 126/72; PULSE 68; RESP 16; TEMP 97.9; O2SAT 96
[2017-10-01] MEDS: TRIAMCINOLONE ACETONIDE 0.1% OINT 15 GM TUBE TOPICAL SCH ×2 (09:00→21:00)
[2017-10-01] MEDS: NICOTINE 21 MG/24 HR PATCH T-DERMAL SCH (09:00)
[2017-10-01] MEDS: BUDESONIDE-FORMOTEROL 80/4.5 MCG INHALER INH SCH ×2 (09:00→20:56)
[2017-10-01] MEDS: OXcarbazepine 300 MG TAB PO SCH ×2 (10:12→20:58)
[2017-10-01] MEDS: CETIRIZINE HCL 10 MG TAB PO SCH (10:12)
[2017-10-01] MEDS: SODIUM CHLORIDE 1 GRAM TAB PO SCH (10:12)
[2017-10-01] MEDS: ASPIRIN EC 81 MG TABEC PO SCH (10:12)
[2017-10-01] MEDS: DIVALPROEX SODIUM E.R. 500 MG TAB PO SCH (10:12)
[2017-10-01] MEDS: METOPROLOL TARTRATE 25 MG TAB PO SCH (10:13)
[2017-10-01] MEDS: LACTULOSE SYRUP 20 GM/30 ML CUP PO SCH ×2 (10:17→20:58)
--- NOTE | 2017-10-01 13:17 | HHI.PYPN ---
Subjective Remarks Patient seen in her room with nurse Jaky, chart reviewed, patient compliant medications. She continues to focus on getting her glasses, not have real close , and wondering why she has not return to [facility]. Patient shows no insight into behaviors. The significant recidivism with these hospitalizations. For now will increase Prolixin to 10 mg twice a day. Continue to await word [facility] Review of Systems Except as stated in HPI: all other systems reviewed are Neg Mental Status Examination Appearance: Disheveled Consciousness: Alert Orientation: Person (at least) Motor Activity: Other (no motoric abnormalities noted) Speech: Rapid, Other (rambling) Language: Other (markedly disorganized) Fund of Knowledge: Inadequate Attention and Concentration: Other (poor) Memory: Impaired Mood: Irritable (mild) Affect: Blunt Thought Process & Associations: Tangential Thought Content: Bizarre thinking, Delusional Hallucination Type: None (appears internally stimulated) Delusion Type: None, Paranoid Suicidal Ideation: No Suicidal Plan: No Suicidal Intention: No Homicidal Ideation: No Homicidal Plan: No Homicidal Intention: No Insight: Poor Judgment: Poor Results Vitals/IOs Vital Signs Date Time Temp Pulse Resp B/P (MAP) Pulse Ox O2 Delivery O2 Flow Rate FiO2 10/01/17 06:08 97.9 68 16 126/72 (90) 96 Assessment & Plan Problem List: (1) Paranoid type schizophrenia, chronic state ICD Codes: F20.0 - Paranoid schizophrenia Status: Acute Assessment & Plan Estimated LOS: days patient continues quite psychotic and delusional. She medication adjustment above. Continue to await word [facility] Justification for Cont. Inpt. At this time patient will decompensate and placed in a lower level of care Discharge Planning Continue to await [facility] Request HC Surrog/Guard Advoc?: No Kt Bruce MD Oct 01, 2017 13:17
[2017-10-01 18:00] VITALS: BP 129/68; PULSE 84; RESP 18; TEMP 98.6; O2SAT 97
[2017-10-01] MEDS: DIVALPROEX SODIUM SPRINKLES 125 MG CAP PO SCH (20:57)
[2017-10-01] MEDS: ATORVASTATIN 10 MG TAB PO SCH (20:57)
[2017-10-01] MEDS: diphenhydrAMINE HCL 25 MG CAP PO SCH (20:58)
[2017-10-02 05:36] VITALS: BP 121/69; PULSE 68; RESP 16; TEMP 97.9; O2SAT 94
[2017-10-02] MEDS: BUDESONIDE-FORMOTEROL 80/4.5 MCG INHALER INH SCH ×2 (08:58→20:40)
[2017-10-02] MEDS: CETIRIZINE HCL 10 MG TAB PO SCH (08:59)
[2017-10-02] MEDS: SODIUM CHLORIDE 1 GRAM TAB PO SCH (08:59)
[2017-10-02] MEDS: OXcarbazepine 300 MG TAB PO SCH ×2 (08:59→20:42)
[2017-10-02] MEDS: ASPIRIN EC 81 MG TABEC PO SCH (08:59)
[2017-10-02] MEDS: DIVALPROEX SODIUM E.R. 500 MG TAB PO SCH (08:59)
[2017-10-02] MEDS: TRIAMCINOLONE ACETONIDE 0.1% OINT 15 GM TUBE TOPICAL SCH ×2 (09:00→20:43)
[2017-10-02] MEDS: NICOTINE 21 MG/24 HR PATCH T-DERMAL SCH (09:00)
[2017-10-02] MEDS: METOPROLOL TARTRATE 25 MG TAB PO SCH (09:02)
[2017-10-02] MEDS: LACTULOSE SYRUP 20 GM/30 ML CUP PO SCH ×2 (09:06→20:41)
--- NOTE | 2017-10-02 11:25 | HHI.PYPN ---
Subjective Remarks Pt seen and discussed with staff. She has been compliant with medications. She remains with paranoia and poor insight but has not been agitated or aggressive. No SI/HI. Mental Status Examination Appearance: Disheveled Consciousness: Alert Orientation: Person (at least) Motor Activity: Other (no motoric abnormalities noted) Speech: Rapid, Other (rambling) Language: Other (markedly disorganized) Fund of Knowledge: Inadequate Attention and Concentration: Other (poor) Memory: Impaired Mood: Irritable (mild) Affect: Blunt Thought Process & Associations: Tangential Thought Content: Bizarre thinking, Delusional Hallucination Type: None (appears internally stimulated) Delusion Type: None, Paranoid Suicidal Ideation: No Suicidal Plan: No Suicidal Intention: No Homicidal Ideation: No Homicidal Plan: No Homicidal Intention: No Insight: Poor Judgment: Poor Results Vitals/IOs Vital Signs Date Time Temp Pulse Resp B/P (MAP) Pulse Ox O2 Delivery O2 Flow Rate FiO2 10/02/17 05:36 97.9 68 16 121/69 (86) 94 Assessment & Plan Problem List: (1) Paranoid type schizophrenia, chronic state ICD Codes: F20.0 - Paranoid schizophrenia Status: Acute Assessment & Plan Continue current tx plan. Estimated LOS: days Justification for Cont. Inpt. risk of decompenstion Request HC Surrog/Guard Advoc?: Ivy Wilhelm MD Oct 02, 2017 11:25
[2017-10-02 16:48] VITALS: BP 113/77; PULSE 88; RESP 16; TEMP 98.3; O2SAT 94
[2017-10-02] MEDS: DIVALPROEX SODIUM SPRINKLES 125 MG CAP PO SCH (20:42)
[2017-10-02] MEDS: ATORVASTATIN 10 MG TAB PO SCH (20:42)
[2017-10-02] MEDS: diphenhydrAMINE HCL 25 MG CAP PO SCH (20:42)
[2017-10-03 06:01] VITALS: BP 116/98; PULSE 74; RESP 1; TEMP 98.1; O2SAT 17
[2017-10-03] MEDS: TRIAMCINOLONE ACETONIDE 0.1% OINT 15 GM TUBE TOPICAL SCH ×2 (09:00→20:59)
[2017-10-03] MEDS: NICOTINE 21 MG/24 HR PATCH T-DERMAL SCH (09:00)
[2017-10-03] MEDS: SODIUM CHLORIDE 1 GRAM TAB PO SCH (09:36)
[2017-10-03] MEDS: CETIRIZINE HCL 10 MG TAB PO SCH (09:36)
[2017-10-03] MEDS: DIVALPROEX SODIUM E.R. 500 MG TAB PO SCH (09:37)
[2017-10-03] MEDS: ASPIRIN EC 81 MG TABEC PO SCH (09:37)
[2017-10-03] MEDS: OXcarbazepine 300 MG TAB PO SCH ×2 (09:37→20:56)
[2017-10-03] MEDS: METOPROLOL TARTRATE 25 MG TAB PO SCH (09:37)
[2017-10-03] MEDS: BUDESONIDE-FORMOTEROL 80/4.5 MCG INHALER INH SCH ×2 (09:39→20:55)
[2017-10-03] MEDS: LACTULOSE SYRUP 20 GM/30 ML CUP PO SCH ×2 (09:39→20:56)
--- NOTE | 2017-10-03 15:08 | HHI.PYPN ---
Subjective Remarks Pt seen and discussed with staff. She has been irritable and refused to come out of her room. She has been compliant with medications. No aggression or agitation. No SI/HI Mental Status Examination Appearance: Disheveled Consciousness: Alert Orientation: Person (at least) Motor Activity: Other (no motoric abnormalities noted) Speech: Rapid, Other (rambling) Language: Other (markedly disorganized) Fund of Knowledge: Inadequate Attention and Concentration: Other (poor) Memory: Impaired Mood: Irritable (mild) Affect: Blunt Thought Process & Associations: Tangential Thought Content: Bizarre thinking, Delusional Hallucination Type: None (appears internally stimulated) Delusion Type: None, Paranoid Suicidal Ideation: No Suicidal Plan: No Suicidal Intention: No Homicidal Ideation: No Homicidal Plan: No Homicidal Intention: No Insight: Poor Judgment: Poor Results Vitals/IOs Vital Signs Date Time Temp Pulse Resp B/P (MAP) Pulse Ox O2 Delivery O2 Flow Rate FiO2 10/03/17 06:01 98.1 74 1 116/98 (104 17 Assessment & Plan Problem List: (1) Paranoid type schizophrenia, chronic state ICD Codes: F20.0 - Paranoid schizophrenia Status: Acute Assessment & Plan Continue current tx plan. Estimated LOS: days Justification for Cont. Inpt. risk of decompensation, impairments in reality testing and social functioning Request HC Surrog/Guard Advoc?: Ivy Wilhelm MD Oct 03, 2017 15:08
[2017-10-03 18:00] VITALS: BP 126/77; PULSE 83; RESP 16; TEMP 98.3; O2SAT 95
[2017-10-03] MEDS: DIVALPROEX SODIUM SPRINKLES 125 MG CAP PO SCH (20:56)
[2017-10-03] MEDS: ATORVASTATIN 10 MG TAB PO SCH (20:56)
[2017-10-03] MEDS: diphenhydrAMINE HCL 25 MG CAP PO SCH (20:56)
[2017-10-04 05:35] VITALS: BP 113/70; PULSE 69; RESP 17; TEMP 97.1; O2SAT 94
[2017-10-04] MEDS: LACTULOSE SYRUP 20 GM/30 ML CUP PO SCH ×2 (08:41→20:53)
[2017-10-04] MEDS: ASPIRIN EC 81 MG TABEC PO SCH (08:41)
[2017-10-04] MEDS: BUDESONIDE-FORMOTEROL 80/4.5 MCG INHALER INH SCH ×2 (08:41→20:53)
[2017-10-04] MEDS: CETIRIZINE HCL 10 MG TAB PO SCH (08:41)
[2017-10-04] MEDS: SODIUM CHLORIDE 1 GRAM TAB PO SCH (08:42)
[2017-10-04] MEDS: METOPROLOL TARTRATE 25 MG TAB PO SCH (08:42)
[2017-10-04] MEDS: DIVALPROEX SODIUM E.R. 500 MG TAB PO SCH (08:42)
[2017-10-04] MEDS: OXcarbazepine 300 MG TAB PO SCH ×2 (08:43→20:53)
[2017-10-04] MEDS: TRIAMCINOLONE ACETONIDE 0.1% OINT 15 GM TUBE TOPICAL SCH ×2 (08:43→21:00)
[2017-10-04] MEDS: NICOTINE 21 MG/24 HR PATCH T-DERMAL SCH (08:45)
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
[2017-10-04 15:51] VITALS: BP 136/66; PULSE 70; RESP 16; TEMP 98.5; O2SAT 94
[2017-10-04 18:00] VITALS: BP 136/66; PULSE 70; RESP 15; TEMP 98.5; O2SAT 94
[2017-10-04] MEDS: diphenhydrAMINE HCL 25 MG CAP PO SCH (20:53)
[2017-10-04] MEDS: ATORVASTATIN 10 MG TAB PO SCH (20:54)
[2017-10-04] MEDS: DIVALPROEX SODIUM SPRINKLES 125 MG CAP PO SCH (20:56)
[2017-10-05 05:58] VITALS: BP 121/74; PULSE 76; RESP 18; TEMP 97.5; O2SAT 96
[2017-10-05] MEDS: LACTULOSE SYRUP 20 GM/30 ML CUP PO SCH ×2 (08:13→20:22)
[2017-10-05] MEDS: SODIUM CHLORIDE 1 GRAM TAB PO SCH (08:13)
[2017-10-05] MEDS: CETIRIZINE HCL 10 MG TAB PO SCH (08:14)
[2017-10-05] MEDS: METOPROLOL TARTRATE 25 MG TAB PO SCH (08:14)
[2017-10-05] MEDS: ASPIRIN EC 81 MG TABEC PO SCH (08:14)
[2017-10-05] MEDS: OXcarbazepine 300 MG TAB PO SCH ×2 (08:14→20:18)
[2017-10-05] MEDS: BUDESONIDE-FORMOTEROL 80/4.5 MCG INHALER INH SCH ×2 (08:15→20:18)
[2017-10-05] MEDS: DIVALPROEX SODIUM E.R. 500 MG TAB PO SCH (08:15)
[2017-10-05] MEDS: TRIAMCINOLONE ACETONIDE 0.1% OINT 15 GM TUBE TOPICAL SCH ×3 (08:22→20:21)
[2017-10-05] MEDS: NICOTINE 21 MG/24 HR PATCH T-DERMAL SCH (08:22)
--- NOTE | 2017-10-05 12:05 | HHI.PYPN ---
Subjective Remarks Patient seen in her room with floor staff, chart review, patient compliant medications. Patient continues delusional no insight into her disease. Focusing on issues related to her prior placements. We continue to await word from the [facility] referral. We'll order labs that will be requested by [facility] per to the accepting patient to monitor her until placement in the [facility] Review of Systems Except as stated in HPI: all other systems reviewed are Neg Mental Status Examination Appearance: Disheveled Consciousness: Alert Orientation: Person (at least) Motor Activity: Other (no motoric abnormalities noted) Speech: Rapid, Other (rambling) Language: Other (markedly disorganized) Fund of Knowledge: Inadequate Attention and Concentration: Other (poor) Memory: Impaired Mood: Irritable (mild) Affect: Blunt Thought Process & Associations: Tangential Thought Content: Bizarre thinking, Delusional Hallucination Type: None (appears internally stimulated) Delusion Type: None, Paranoid Suicidal Ideation: No Suicidal Plan: No Suicidal Intention: No Homicidal Ideation: No Homicidal Plan: No Homicidal Intention: No Insight: Poor Judgment: Poor Results Vitals/IOs Vital Signs Date Time Temp Pulse Resp B/P (MAP) Pulse Ox O2 Delivery O2 Flow Rate FiO2 10/05/17 05:58 97.5 76 18 121/74 (90) 96 Intake and Output 10/05/17 10/05/17 10/05/17 07:59 15:59 23:59 Intake Total 240 ml Balance 240 ml Assessment & Plan Problem List: (1) Paranoid type schizophrenia, chronic state ICD Codes: F20.0 - Paranoid schizophrenia Status: Acute Assessment & Plan Estimated LOS: days patient continues delusional and psychotic, no significant change, no significant insight. Labs will be drawn in advance of possible transfer to [facility] monitoring and observation until placement is [facility] Justification for Cont. Inpt. At this time patient decompensated place a lower level of care Discharge Planning Continue to await [facility] referral Request HC Surrog/Guard Advoc?: No Kt Bruce MD Oct 05, 2017 12:05
[2017-10-05 13:37] LABS: ALBUMIN 3.8 GM/DL (3.4-5.0); AST (GOT) 16 U/L (15-37); BICARBONATE 28.4 MEQ/L (21.0-32.0); BLOOD UREA NITROGEN 14 MG/DL (7-18); CALCIUM 8.6 MG/DL (8.5-10.1); CHLORIDE 92 MEQ/L (98-107); CREATININE 0.67 MG/DL (0.50-1.00); GLOMERULAR FILTRATION RATE 92 ML/MIN (>89); GLUCOSE,RANDOM 113 MG/DL (74-106); SODIUM (NA) 126 MEQ/L (136-145)
[2017-10-05 13:38] LABS: ALT (GPT) 22 U/L (10-53)
[2017-10-05 13:40] LABS: ALKALINE PHOSPHATASE 90 U/L (45-117); TOTAL BILIRUBIN ADULT 0.1 MG/DL (0.2-1.0); TOTAL PROTEIN 7.3 GM/DL (6.4-8.2)
[2017-10-05 18:00] VITALS: BP 107/66; PULSE 84; RESP 18; TEMP 98.4; O2SAT 95
[2017-10-05] MEDS: ATORVASTATIN 10 MG TAB PO SCH (20:19)
[2017-10-05] MEDS: DIVALPROEX SODIUM SPRINKLES 125 MG CAP PO SCH (20:19)
[2017-10-05] MEDS: diphenhydrAMINE HCL 25 MG CAP PO SCH (20:19)
[2017-10-05 21:55] LABS: BILIRUBIN, URINE NEG (NEG); BLOOD, URINE NEG (NEG); GLUCOSE,URINE NEG (NEG); KETONE, URINE TRACE mg/dL (NEG); NITRITE,URINE NEG (NEG); PH, URINE 6.5 (5.0-8.5); SQUAMOUS EPITHELIAL CELL URINE <1 /hpf (0-5); URINE COLOR LIGHT-YELLOW (YELLW/STRAW); URINE LEUKOCYTE ESTERASE NEG (NEG)
[2017-10-06 06:00] VITALS: BP 111/57; PULSE 64; RESP 16; TEMP 97.3; O2SAT 95
[2017-10-06] MEDS: TRIAMCINOLONE ACETONIDE 0.1% OINT 15 GM TUBE TOPICAL SCH ×2 (09:00→20:28)
[2017-10-06] MEDS: CETIRIZINE HCL 10 MG TAB PO SCH (09:00)
[2017-10-06] MEDS: ASPIRIN EC 81 MG TABEC PO SCH (09:00)
[2017-10-06] MEDS: BUDESONIDE-FORMOTEROL 80/4.5 MCG INHALER INH SCH ×2 (09:10→20:28)
[2017-10-06] MEDS: DIVALPROEX SODIUM E.R. 500 MG TAB PO SCH (09:11)
[2017-10-06] MEDS: SODIUM CHLORIDE 1 GRAM TAB PO SCH (09:11)
[2017-10-06] MEDS: OXcarbazepine 300 MG TAB PO SCH ×2 (09:11→20:27)
[2017-10-06] MEDS: NICOTINE 21 MG/24 HR PATCH T-DERMAL SCH (09:11)
[2017-10-06] MEDS: LACTULOSE SYRUP 20 GM/30 ML CUP PO SCH ×2 (09:12→20:28)
[2017-10-06] MEDS: METOPROLOL TARTRATE 25 MG TAB PO SCH (09:12)
[2017-10-06 12:13] LABS: AUTOMATED NEUTROPHIL # 3.2 TH/MM3 (1.8-7.7); BASOPHIL % 0.3 % (0.0-2.0); EOSINOPHIL # 0.1 TH/MM3 (0-0.4); EOSINOPHIL % 1.3 % (0.0-4.0); HEMATOCRIT 36.9 % (35.0-46.0); HEMOGLOBIN 12.7 GM/DL (11.6-15.3); LYMPH % 27.7 % (9.0-44.0); LYMPHOCYTE # 1.5 TH/MM3 (1.0-4.8); MEAN CELL VOLUME 92.5 FL (80.0-100.0); MEAN CORPUSCULAR HEMOGLOBIN 31.9 PG (27.0-34.0); MEAN CORPUSCULAR HGB CONC 34.5 % (32.0-36.0); MEAN PLATELET VOLUME 10.1 FL (7.0-11.0); MONO % 10.3 % (0.0-8.0); MONOCYTE # 0.6 TH/MM3 (0-0.9); NEUT % 60.4 % (16.0-70.0); PLATELET COUNT 160 TH/MM3 (150-450); RED BLOOD COUNT 3.99 MIL/MM3 (4.00-5.30); RED CELL DISTRIBUTION WIDTH 14.4 % (11.6-17.2); WHITE BLOOD COUNT 5.4 TH/MM3 (4.0-11.0)
--- NOTE | 2017-10-06 15:02 | HHI.PYPN ---
Subjective Remarks Patient seen in [facility] nurse Huang, chart review, patient compliant medications. Patient no significant behavioral problems, still wanders the halls sometimes her delusions persist related to relationships and roommates at her prior placement. Continue to await word from [facility] Review of Systems Except as stated in HPI: all other systems reviewed are Neg Mental Status Examination Appearance: Disheveled Consciousness: Alert Orientation: Person (at least) Motor Activity: Other (no motoric abnormalities noted) Speech: Rapid, Other (rambling) Language: Other (markedly disorganized) Fund of Knowledge: Inadequate Attention and Concentration: Other (poor) Memory: Impaired Mood: Irritable (mild) Affect: Blunt Thought Process & Associations: Tangential Thought Content: Bizarre thinking, Delusional Hallucination Type: None (appears internally stimulated) Delusion Type: None, Paranoid Suicidal Ideation: No Suicidal Plan: No Suicidal Intention: No Homicidal Ideation: No Homicidal Plan: No Homicidal Intention: No Insight: Poor Judgment: Poor Results Labs Test 10/05/17 21:06 10/06/17 10:15 Urine Color LIGHT-YELLOW Urine Turbidity CLEAR Urine pH 6.5 Urine Specific Grant 1.014 Urine Protein NEG mg/dL Urine Glucose (UA) NEG mg/dL Urine Ketones TRACE mg/dL Urine Occult Blood NEG Urine Nitrite NEG Urine Bilirubin NEG Urine Urobilinogen LESS THAN 2.0 MG/DL Urine Leukocyte Esterase NEG Urine RBC LESS THAN 1 /hpf Urine WBC LESS THAN 1 /hpf Urine Squamous Epithelial Cells <1 /hpf Microscopic Urinalysis Comment CULT NOT INDICATED White Blood Count 5.4 TH/MM3 Red Blood Count 3.99 MIL/MM3 Hemoglobin 12.7 GM/DL Hematocrit 36.9 % Mean Corpuscular Volume 92.5 FL Mean Corpuscular Hemoglobin 31.9 PG Mean Corpuscular Hemoglobin Concent 34.5 % Red Cell Distribution Width 14.4 % Platelet Count 160 TH/MM3 Mean Platelet Volume 10.1 FL Neutrophils (%) (Auto) 60.4 % Lymphocytes (%) (Auto) 27.7 % Monocytes (%) (Auto) 10.3 % Eosinophils (%) (Auto) 1.3 % Basophils (%) (Auto) 0.3 % Neutrophils # (Auto) 3.2 TH/MM3 Lymphocytes # (Auto) 1.5 TH/MM3 Monocytes # (Auto) 0.6 TH/MM3 Eosinophils # (Auto) 0.1 TH/MM3 Basophils # (Auto) 0.0 TH/MM3 CBC Comment DIFF FINAL Differential Comment Vitals/IOs Vital Signs Date Time Temp Pulse Resp B/P (MAP) Pulse Ox O2 Delivery O2 Flow Rate FiO2 10/06/17 06:00 97.3 64 16 111/57 (75) 95 Assessment & Plan Problem List: (1) Paranoid type schizophrenia, chronic state ICD Codes: F20.0 - Paranoid schizophrenia Status: Acute Assessment & Plan Estimated LOS: days patient continue psychotic though no significant behavioral problems. Continue to await word from [facility] Justification for Cont. Inpt. At this time patient will decompensate if placed in the lower level of care Discharge Planning Await word from [facility] Request HC Surrog/Guard Advoc?: No Kt Bruce MD Oct 06, 2017 15:02
[2017-10-06 19:16] VITALS: BP 118/64; PULSE 77; RESP 18; TEMP 97.9; O2SAT 99
[2017-10-06] MEDS: diphenhydrAMINE HCL 25 MG CAP PO SCH (20:26)
[2017-10-06] MEDS: ATORVASTATIN 10 MG TAB PO SCH (20:26)
[2017-10-06] MEDS: DIVALPROEX SODIUM SPRINKLES 125 MG CAP PO SCH (20:28)
[2017-10-07 06:00] VITALS: BP 124/62; PULSE 76; RESP 16; TEMP 97.6; O2SAT 97
[2017-10-07] MEDS: BUDESONIDE-FORMOTEROL 80/4.5 MCG INHALER INH SCH (09:10)
[2017-10-07] MEDS: NICOTINE 21 MG/24 HR PATCH T-DERMAL SCH (09:12)
[2017-10-07] MEDS ORDERED: SODI1TAB PO (09:12)
[2017-10-07] MEDS ORDERED: DIPH25CA PO (09:12)
[2017-10-07] MEDS ORDERED: OXCA300T PO (09:12)
[2017-10-07] MEDS ORDERED: SYMB80AE INH (09:12)
[2017-10-07] MEDS ORDERED: CETI10 PO (09:12)
[2017-10-07] MEDS ORDERED: FLUP10TA PO (09:12)
[2017-10-07] MEDS ORDERED: LACT10SO5 PO (09:12)
[2017-10-07] MEDS: LACTULOSE SYRUP 20 GM/30 ML CUP PO SCH ×2 (09:12→09:19)
[2017-10-07] MEDS ORDERED: ASPI81TA23 PO (09:12)
[2017-10-07] MEDS ORDERED: TRIAM.1%T TOPICAL (09:12)
[2017-10-07] MEDS ORDERED: METO25TA3 PO (09:12)
[2017-10-07] MEDS ORDERED: DIVA125C PO (09:12)
[2017-10-07] MEDS ORDERED: DEPA500T3 PO (09:12)
[2017-10-07] MEDS ORDERED: ATOR10TA15 PO (09:12)
[2017-10-07] MEDS ORDERED: RISP50P IM (09:12)
[2017-10-07] MEDS: ASPIRIN EC 81 MG TABEC PO SCH (09:13)
[2017-10-07] MEDS: METOPROLOL TARTRATE 25 MG TAB PO SCH (09:13)
[2017-10-07] MEDS: DIVALPROEX SODIUM E.R. 500 MG TAB PO SCH (09:14)
[2017-10-07] MEDS: SODIUM CHLORIDE 1 GRAM TAB PO SCH (09:14)
[2017-10-07] MEDS: OXcarbazepine 300 MG TAB PO SCH (09:14)
[2017-10-07] MEDS: CETIRIZINE HCL 10 MG TAB PO SCH (09:14)
[2017-10-07] MEDS: TRIAMCINOLONE ACETONIDE 0.1% OINT 15 GM TUBE TOPICAL SCH (09:15)
--- NOTE | 2017-10-07 09:18 | HHI.DS ---
Psychiatry Discharge Summary Inpatient Psychiatric care?: Yes Advance Directive: No Reason Not Provided: Due to Patient Condition Mental Health AdvanceDirective: No Health Care Proxy: No Admission Admission Date Sep 01, 2017 at 18:18 Admission Diagnosis: (1) PARANOID SCHIZOPHRENIA ICD Code: F20.0 - PARANOID SCHIZOPHRENIA Brief History Patient is a 50-year-old white female well-known was multiple prior hospitalizations be hospitalized here at 08/26/17 through 08/30/17 of the medical side for pneumonia with visit [id number] patient was discharged back to her long-term assisted. [facility]. It appears patient became more out of control as that facility becoming paranoid delusional angry with outbursts and aggressive behavior harm herself harming property. She vague compliance medication. Was brought to the ED under an ex parte signed by Judge Bisi Sanchez dated August. Review of EMR shows in 2017 patient is had 13 visits through our ED, 9 which were psychiatric in nature. At the present time patient seen in her room with nurse arnaud, patient is quite psychotic intrusive for the manic type overlay. She is loud with rapid pressured speech. Disorganized and delusional. Stating she just had lunch with Pres. Garvey and he wants to resign because he can handle his job anymore. She also somewhat grandiose related to her living situation. States she cannot talk about the past but willing talk what the future. She has had issues in the past with her roommates getting loud intrusive and irritable oriented times self-injurious. She has had his shown some noncompliance with medications also. She does deny voices this time she appears to be responding to internal stimuli. At this time patient does meet criteria for involuntary acute inpatient psychiatric hospitalization. I'll do first opinion request second opinion. For full chest capacity is significant for her medications. Will also request a Hospitalist consult was concerning multiple medical issues and her recent pneumonia. Concerning the multiplicity of her admits contacts. [place] this past year I feel patient may need further long-term stay at the [facility] thus I will initiate a state referral packet The patient is a 50 year-old white woman, domicile in a residential facility, she is very well-known by the Department due to her multiple psychiatric hospitalizations with a similar presentation. Consulted to me for second opinion. On evaluation patient is disorganized, disruptive, very talkative, no making any sense and making several paranoid statements. Tobacco Use In Past 30 Days: 4 or Less Cigarettes/Day Alcohol Use: Never Hospital Course Patient's hospital course was fairly uneventful, patient showed some mixed compliance with medications. Was persistent delusions related to her behaviors at her assisted, this led to multiple readmissions due to her inability to tolerate any stress at that facility. She showed overall compliance with medication. Is been no behavior problems. However it was determined by the treatment team that patient is unable to live independently in the community was unable tolerate living in her long-term placement. Thus is felt that she needed long-term treatment and extended care facility. There are no facilities available in the community. Patient has been accepted at the [facility] though the bed placement date is not yet been amounts. Patient to be transferred to [facility] see issue observation treatment and monitoring until the bed is available at the [facility] Results Blood Pressure 124 / 62 Vital Signs Date Time Temp Pulse Resp B/P (MAP) Pulse Ox O2 Delivery O2 Flow Rate FiO2 10/07/17 06:00 97.6 76 16 124/62 (82) 97 Laboratory Tests Test 10/05/17 12:45 10/05/17 21:06 10/06/17 10:15 Random Glucose 113 MG/DL (74-106) Total Bilirubin 0.1 MG/DL (0.2-1.0) Sodium Level 126 MEQ/L (136-145) Chloride Level 92 MEQ/L (98-107) Urine Ketones TRACE mg/dL (NEG) Red Blood Count 3.99 MIL/MM3 (4.00-5.30) Monocytes (%) (Auto) 10.3 % (0.0-8.0) Laboratory Results Test 09/02/17 06:38 09/27/17 09:50 Cholesterol Level 140 MG/DL (120-200) HDL Cholesterol 75.1 MG/DL (40.0-60.0) Hemoglobin A1c 5.5 % (4.3-6.0) LDL Cholesterol 55 MG/DL (0-99) Triglycerides Level 50 MG/DL (42-150) Valproic Acid (Depakene) Level 98 MCG/ML (50-100) Summary of Procedures None done Pending results at discharge: No Medications # of Antipsychotic meds at D/C: 2 Appropriate >1 Antipsych meds?: 2 (would suggest correlation at [facility] or subsequent at [facility] referral may consider gradual weaning of the fluphenazine) Approp Antipsych med options 1 - Minimum of three failed multiple trials of monotherapy. 2 - Documented plan to taper to monotherapy due to previous use of multiple meds OR cross-taper in progress at D/C. 3 - Documentation of augmentation of Clozapine. 4 - Justification other than those listed in allowable values 1-3, document here : Discharge Discharge Date: Oct 07, 2017 Discharge Diagnosis: (1) Paranoid type schizophrenia, chronic state Diagnosis: Principal ICD Code: F20.0 - Paranoid schizophrenia Status: Acute Pt Condition on Discharge: Stable Discharge Disposition: Trnsfr to Other Facility Discharge Instructions Diet Instructions: As Tolerated, No Restrictions Activities you can perform: Regular-No Restrictions Scheduled Appointment: [facility] (patient to be transferred to [facility] see issue for further observation assessment and management until placed at [facility] facility) Discharge Time > 30 minutes Mental Status Examination Appearance: Disheveled Consciousness: Alert Orientation: Person (at least) Motor Activity: Other (no motoric abnormalities noted) Speech: Rapid, Other (rambling) Language: Other (markedly disorganized) Fund of Knowledge: Inadequate Attention and Concentration: Other (poor) Memory: Impaired Mood: Irritable (mild) Affect: Blunt Thought Process & Associations: Tangential Thought Content: Bizarre thinking, Delusional Hallucination Type: None (appears internally stimulated) Delusion Type: None, Paranoid Suicidal Ideation: No Suicidal Plan: No Suicidal Intention: No Homicidal Ideation: No Homicidal Plan: No Homicidal Intention: No Insight: Poor Judgment: Poor Discharge/Advance Care Plan Health Problems: (1) Paranoid type schizophrenia, chronic state Goals to promote your health * To prevent worsening of your condition and complications * To maintain your health at the optimal level Directions to meet your goals Take your medications as prescribed Follow your dietary instruction Follow activity as directed Keep your appointments as scheduled Take your immunizations and boosters as scheduled If your symptoms worsen call your PCP, if no PCP go to Urgent Care Center or Emergency Room For 24/ questions related to your inpatient stay or results of tests pending at discharge, please contact Dr. Kt Bruce at Smoking is Dangerous to Your Health. Avoid second hand smoking Kt Bruce MD Oct 07, 2017 09:18
== END 2017-10-07 13:00 | disposition short-term general hospital (02) | DRG 885 ==
LOC: NEPD 15:22 → NEDA 18:18 → H270 20:39 → H260 20:43
PROVIDERS: ADMIT Psychiatry & Neurology Psychiatry; ATTEND Psychiatry & Neurology Psychiatry
DX: F20.0 Paranoid schizophrenia (principal); Z91.14 Patient's other noncompliance with medication regimen; I10 Essential (primary) hypertension; E78.5 Hyperlipidemia, unspecified; J44.9 Chronic obstructive pulmonary disease, unspecified; F17.210 Nicotine dependence, cigarettes, uncomplicated; F32.9 Major depressive disorder, single episode, unspecified; F41.9 Anxiety disorder, unspecified
CPT/HCPCS: 80048; 80053; 80061; 80164; 80307; 81001; 83036; 85025; 99285; J2794